=== PATIENT | male | born 1935 | race Caucasian/White ===

== ENCOUNTER 2017-10-04 15:12 | Emergency (ER) | payer MEDICARE, OTHER ==
[~2017-10-04 15:12] MED LIST: ACYCLOVIR200 MG PO; AMLODIPINE BESY10 MG PO; ATIVAN0.5 MG PO; BENZONATATE100 MG PO; DOCUSATE SODIU100 MG PO; DOXAZOSIN MESYLA1 MG PO; FLUTICASONE PRO16 GM; GLIPIZIDE5 MG PO; LIDODERM700 MG TD; MECLIZINE HCL12.5 MG PO; MEROPENEM500 MG IV; METOPROLOL TART50 MG PO; TAMSULOSIN HCL0.4 MG PO; TRAZODONE HCL50 MG PO; TYLENOL # 31 EA PO; ULTRAM50 MG PO
== END 2017-10-04 17:24 | disposition left against medical advice (07) ==
LOC: FSED 15:12
DX: M25.551 Pain in right hip (principal)

== ENCOUNTER 2018-12-13 03:54 | Observation (INO) | payer OTHER ==
[~2018-12-13] VITALS: Ht 170.2 cm; Wt 94.1 kg
--- OUTSIDE RECORDS SUMMARY | 2018-12-13 03:57 | XMS REPORT | Clinical Summary ---
Author Author [facility] Address Unknown Phone Unavailable Care Team Providers Care Gift Packer Name Role Phone Eladio Saini DO PCP Allergies Comments Active Allergy Reactions Severity Noted Date Jittery Ciprofloxacin Other (See 12/30/2017 Comments) Medications End Date Status Medication Sig Dispensed Refills Start Date Active acetaminophen-codeine 0 (TYLENOL WITH CODEINE #3) 8 300-30 mg per tablet Active acyclovir (ZOVIRAX) 200 0 MG capsule 8 Active amLODIPine (NORVASC) 10 0 mg tablet 8 Active citalopram (CeleXA) 20 MG 0 tablet 8 Active finasteride (PROSCAR) 5 0 mg tablet 8 Active hydroCHLOROthiazide 0 (HYDRODIURIL) 25 MG 8 tablet Active lisinopril 0 (PRINIVIL,ZESTRIL) 40 mg 8 tablet Active pantoprazole (PROTONIX) 0 40 MG EC tablet 8 Active tamsulosin (FLOMAX) 0.4 0 mg capsule,extended 8 release 24hr Active Problems Problem Noted Date Bilateral impacted cerumen 12/30/2017 Sensorineural hearing loss (SNHL) of both ears 12/30/2017 Encounters Care Team Description Date Type Specialty Roddy Gold MD Bilateral impacted cerumen (Primary Dx); Sensorineural hearing loss (SNHL) of both ears 12/30/2017 Office Visit Otolaryngology after 12/12/2017 Family History Medical History Relation Name Comments Cancer Brother Heart disease Father Relation Name Status Comments Brother Father Social History Date Tobacco Use Types Packs/Day Years Used Never Smoker Smokeless Tobacco: Never Used Alcohol Use Drinks/Week oz/Week Comments No Sex Assigned at Date Recorded Not on file Industry Job Start Date Occupation Not on file Not on file Not on file Travel End Travel History Travel Start No recent travel history available. Last Filed Vital Signs Time Taken Vital Sign Reading - Blood Pressure - - Pulse - - Temperature - - Respiratory Rate - - Oxygen Saturation - - Inhaled Oxygen - Concentration 12/30/2017 9:43 AM CDT Weight 99.2 kg (218 lb 9.6 oz) 12/30/2017 9:43 AM CDT Height 170.2 cm (5' 7") 12/30/2017 9:43 AM CDT Body Mass Index 34.24 Plan of Treatment Health Maintenance Due Date Last Done Comments SHINGLES VACCINES (#1) 1985 65+ PNEUMOCOCCAL VACCINE 2000 (1 of 2 - PCV13) PNEUMOCOCCAL 2000 POLYSACCHARIDE VACCINE AGE 65 AND OVER INFLUENZA VACCINE 04/12/2018 Procedures Comments Procedure Name Priority Date/Time Associated Diagnosis COMPREHENSIVE HEARING Routine 12/30/2017 Bilateral impacted TEST 10:32 AM CDT cerumen Sensorineural hearing loss (SNHL) of both ears after 12/12/2017 Results * Comprehensive hearing test (12/30/2017 10:32 AM CDT) Narrative Performed At after 12/12/2017 Insurance Payer Benefit Subscriber ID Type Phone Address Plan / Group [employer] xxxxxxxxx O [facility] Advance Directives Patient has advance care planning documents on file. For more information, kendra priest contact: Sam Cordova [address] [place] [place] [address]
--- OUTSIDE RECORDS SUMMARY | 2018-12-13 03:58 | XMS REPORT | Summary of Care ---
Author Author [facility] Organization [facility] Address Unknown Phone Unavailable Encounter HQ Fabiola(MARISABEL) [id number] Date(s): 11/19/16 - 11/22/16 [facility] [address] [place] [address]- Final: Secondary hypertension, unspecified Discharge Disposition: Home or Self Care Attending Physician: Casa Hill DO Admitting Physician: Casa Hill DO Vital Signs 1 2 3 Most recent to oldest [Reference Range]: 167.64 cm (11/19/16 12:54 PM) Height 98.7 DegF (11/22/16 11:32 AM) 98.8 DegF (11/22/16 7:15 AM) 98.3 DegF (11/22/16 4:00 AM) Temperature Oral [96.4-99.1 DegF] 161/95 mmHg *HI* (11/22/16 11:32 AM) 149/75 mmHg *HI* (11/22/16 7:15 AM) 168/97 mmHg *HI* (11/22/16 4:00 AM) Blood Pressure [90-140/60-90 mmHg] 16 BRMIN (11/22/16 11:32 AM) 17 BRMIN (11/22/16 7:15 AM) 18 BRMIN (11/22/16 4:00 AM) Respiratory Rate [14-20 BRMIN] 87 bpm (11/22/16 11:32 AM) 92 bpm (11/22/16 7:15 AM) 90 bpm (11/22/16 4:00 AM) Peripheral Pulse Rate [60-100 bpm] 217 kg (11/19/16 12:54 PM) Weight 77.22 m2 (11/19/16 12:54 PM) Body Mass Index Problem List Condition Effective Dates Status Health Status Informant DM (diabetes Resolved mellitus)(Confirmed) HTN Resolved (hypertension)(Confi rmed) Arthritis(Confirmed) Resolved Vertigo(Confirmed) Resolved Allergies, Adverse Reactions, Alerts Substance Reaction Severity Status ciprofloxacin Active Medications acetaminophen 650 mg, 2 tab, Route: PO, Drug form: TAB, Q4H, Dosing Weight 217, kg, PRN Pain 1 -3/Temp > 100.4 F, Start date: 11/19/16 13:15:00 PROCUREMENT COST COORDINATOR, Duration: 30 day, Stop date: 12/19/16 13:14:00 CDT Notes: Do not exceed 4 gm/day. (Same as: Tylenol) Start Date: 11/19/16 Stop Date: 11/22/16 Status: Discontinued acetaminophen-hydrocodone 325 mg-5 mg oral tablet 1 tab, Route: PO, Drug Form: TAB, Dosing Weight 217, kg, Q4H, PRN Pain Score 7-1 0, Start date: 11/19/16 14:40:00 PROCUREMENT COST COORDINATOR, Duration: 30 day, Stop date: 12/19/16 14:3 9:00 CDT Notes: (Same as: Earp 325/5) Do not exceed 4gm/day of acetaminophen. Start Date: 11/19/16 Stop Date: 11/22/16 Status: Discontinued acetaminophen-hydrocodone 325 mg-5 mg oral tablet 1 tab, Route: PO, Drug Form: TAB, Dosing Weight 217, kg, Q4H, PRN Pain Score 4-6 , Start date: 11/19/16 13:15:00 PROCUREMENT COST COORDINATOR, Duration: 30 day, Stop date: 12/19/16 13:14 :00 CDT Notes: (Same as: Earp 325/5) Do not exceed 4gm/day of acetaminophen. Start Date: 11/19/16 Stop Date: 11/19/16 Status: Discontinued amLODIPine 10 mg, 2 tab, Route: PO, Drug form: TAB, Daily, Dosing Weight 217, kg, Start manuel e: 11/20/16 9:00:00 PROCUREMENT COST COORDINATOR, Duration: 30 day, Stop date: 12/19/16 9:00:00 CDT Notes: (Same as: Norvasc) Start Date: 11/20/16 Stop Date: 11/22/16 Status: Discontinued Augmentin 875 mg oral tablet 1 tab, PO, Q12H, X 10 day, # 20 tab, 0 Refill(s) Start Date: 11/22/16 Stop Date: 12/02/16 Status: Ordered Augmentin 875 mg oral tablet 1 tab, Route: PO, Drug Form: TAB, Dosing Weight 217, kg, Q12H, Start date: 11/22 9:00:00 CDT, Duration: 10 day, Stop date: 12/01/16 21:00:00 CDT Notes: With food.(Same as: Augmentin 875) Start Date: 11/22/16 Stop Date: 11/22/16 Status: Discontinued benzonatate 100 mg, 1 cap, Route: PO, Drug form: CAP, TID, Dosing Weight 217, kg, PRN Cough/ Congestion, Start date: 11/19/16 13:34:00 PROCUREMENT COST COORDINATOR, Duration: 30 day, Stop date: 05/29 13:33:00 CDT Notes: (Same As: Racquel Bui)"Do Not Crush" Start Date: 11/19/16 Stop Date: 11/22/16 Status: Discontinued benzonatate 100 mg, Route: PO, Drug form: CAP, TID, Dosing Weight 217, kg, Start date: 11/19 17:00:00 PROCUREMENT COST COORDINATOR, Duration: 30 day, Stop date: 12/19/16 13:00:00 CDT Start Date: 11/19/16 Stop Date: 11/19/16 Status: Canceled calcium gluconate + sodium chloride 0.9% INJ 70 mL 3 gm, 30 mL, Route: IVPB, PRN, Dosing Weight 217, kg, PRN Abnormal Lab Result, F or NON-ICU Patients Only., Start date: 11/19/16 13:13:00 PROCUREMENT COST COORDINATOR, Duration: 30 day, Stop date: 12/19/16 14:12:00 CDT Notes: WASTE: F/P - Sink; E - Municipal Trash Bin Start Date: 11/19/16 Stop Date: 11/20/16 Status: Discontinued calcium gluconate + sodium chloride 0.9% INJ 80 mL 2 gm, 20 mL, Route: IVPB, PRN, Dosing Weight 217, kg, PRN Abnormal Lab Result, F or NON-ICU Patients Only., Start date: 11/19/16 13:13:00 PROCUREMENT COST COORDINATOR, Duration: 30 day, Stop date: 12/19/16 14:12:00 CDT Notes: WASTE: F/P - Sink; E - Municipal Trash Bin Start Date: 11/19/16 Stop Date: 11/20/16 Status: Discontinued carvedilol 12.5 mg oral tablet 12.5 mg=1 tab, PO, Q12H, # 60 tab, 0 Refill(s) Start Date: 11/22/16 Stop Date: 12/22/16 Status: Ordered Cepacol Sore Throat Russo Sugar Free 15 mg-3.6 mg mucous membrane lozenge 1 lozenge, Route: MUCOUS MEM, Drug Form: CHUCHO, Dosing Weight 217, kg, Q4H, PRN So re Throat, Start date: 11/20/16 20:42:00 PROCUREMENT COST COORDINATOR, Duration: 30 day, Stop date: 12/20 20:41:00 CDT Notes: Same as: Cepacol Start Date: 11/20/16 Stop Date: 11/22/16 Status: Discontinued Coreg 12.5 mg, 1 tab, Route: PO, Drug form: TAB, Q12H, Dosing Weight 217, kg, Start da te: 11/19/16 21:00:00 PROCUREMENT COST COORDINATOR, Duration: 30 day, Stop date: 12/19/16 9:00:00 CDT Notes: Give with food. (Same As: Coreg) Start Date: 11/19/16 Stop Date: 11/22/16 Status: Discontinued Dextrose 50% Syringe 12.5 gm, 25 mL, Route: IVP, Drug Form: INJ, Dosing Weight 217, kg, PRN, PRN Bloo d Glucose Results, Start date: 11/19/16 13:33:00 PROCUREMENT COST COORDINATOR, Duration: 30 day, Stop manuel e: 12/19/16 14:32:00 CDT Start Date: 11/19/16 Stop Date: 11/22/16 Status: Discontinued Dextrose 50% Syringe 25 gm, 50 mL, Route: IVP, Drug Form: INJ, Dosing Weight 217, kg, PRN, PRN Blood Glucose Results, Start date: 11/19/16 13:33:00 PROCUREMENT COST COORDINATOR, Duration: 30 day, Stop date: 12/19/16 14:32:00 CDT Start Date: 11/19/16 Stop Date: 11/22/16 Status: Discontinued docusate sodium 100 mg oral capsule 100 mg, 1 cap, Route: PO, Drug form: CAP, BID, Dosing Weight 217, kg, PRN Consti patifelipe, Start date: 11/19/16 13:18:00 PROCUREMENT COST COORDINATOR, Duration: 30 day, Stop date: 12/19/16 13:17:00 CDT Notes: (Same as: Colace) (Do Not Crush) Start Date: 11/19/16 Stop Date: 11/22/16 Status: Discontinued doxazosin 1 mg, 1 tab, Route: PO, Drug form: TAB, Daily, Dosing Weight 217, kg, Start date : 11/19/16 17:00:00 PROCUREMENT COST COORDINATOR, Duration: 30 day, Stop date: 12/18/16 17:00:00 CDT Notes: (Same as: Cardura) Start Date: 11/19/16 Stop Date: 11/22/16 Status: Discontinued Flonase 0.05 mg/inh nasal spray 2 spray, Route: Each Affected Nostril, Drug Form: SPRY, Dosing Weight 217, kg, B ID, PRN Congestion, Start date: 11/19/16 19:36:00 PROCUREMENT COST COORDINATOR, Duration: 30 day, Stop da te: 12/19/16 19:35:00 CDT Notes: (Same as: Flonase) Start Date: 11/19/16 Stop Date: 11/22/16 Status: Discontinued Flonase 0.05 mg/inh nasal spray 2 spray, Route: Each Affected Nostril, Drug Form: SPRY, Dosing Weight 217, kg, D aily, PRN Congestion, Start date: 11/19/16 13:23:00 PROCUREMENT COST COORDINATOR, Duration: 30 day, Stop date: 12/19/16 13:22:00 CDT Notes: (Same as: Flonase) Start Date: 11/19/16 Stop Date: 11/19/16 Status: Discontinued glipiZIDE 2.5 mg, 0.5 tab, Route: PO, Drug form: TAB, Before Breakfast, Dosing Weight 217, kg, Start date: 11/21/16 7:30:00 CDT, Duration: 30 day, Stop date: 12/20/16 7:3 0:00 CDT Notes: (Same as: Glucotrol) 30 min before meals. Start Date: 11/21/16 Stop Date: 11/22/16 Status: Discontinued glucagon 1 mg, Route: IM, Drug form: PDR/INJ, PRN, Dosing Weight 217, kg, PRN Blood Gluco se Results, Start date: 11/19/16 13:33:00 PROCUREMENT COST COORDINATOR, Duration: 30 day, Stop date: 05/29 14:32:00 CDT Start Date: 11/19/16 Stop Date: 11/22/16 Status: Discontinued hydrALAZINE 10 mg, 0.5 mL, Route: IVP, Drug form: INJ, Q6H, Dosing Weight 217, kg, PRN Hyper tension, Start date: 11/19/16 13:33:00 PROCUREMENT COST COORDINATOR, Duration: 30 day, Stop date: 13:32:00 CDT Notes: (Same as: Apresoline)Push over 5 minutes Start Date: 11/19/16 Stop Date: 11/22/16 Status: Discontinued insulin aspart 5 unit, 0.05 mL, Route: SUB-Q, Drug form: SOLN, TID-Before Meals, Dosing Weight 217, kg, PRN Blood Glucose Results, Start date: 11/19/16 13:33:00 PROCUREMENT COST COORDINATOR, Duration: 30 day, Stop date: 12/19/16 13:32:00 CDT Notes: Roll in palms of hands gently; Do not shake vigorously. (Same as: Ginny Max)"single patient use only"WASTE: F/P - Black; E - Municipal Trash Bin Stable f or 28 days at room temperature.Expires in days from Date Start Date: 11/19/16 Stop Date: 11/22/16 Status: Discontinued insulin aspart 4 unit, 0.04 mL, Route: SUB-Q, Drug form: SOLN, TID-Before Meals, Dosing Weight 217, kg, PRN Blood Glucose Results, Start date: 11/19/16 13:33:00 PROCUREMENT COST COORDINATOR, Duration: 30 day, Stop date: 12/19/16 13:32:00 CDT Notes: Roll in palms of hands gently; Do not shake vigorously. (Same as: Ginny Max)"single patient use only"WASTE: F/P - Black; E - Municipal Trash Bin Stable f or 28 days at room temperature.Expires in days from Date Start Date: 11/19/16 Stop Date: 11/22/16 Status: Discontinued insulin aspart 1 unit, 0.01 mL, Route: SUB-Q, Drug form: SOLN, TID-Before Meals, Dosing Weight 217, kg, PRN Blood Glucose Results, Start date: 11/19/16 13:33:00 PROCUREMENT COST COORDINATOR, Duration: 30 day, Stop date: 12/19/16 13:32:00 CDT Notes: Roll in palms of hands gently; Do not shake vigorously. (Same as: Ginny Max)"single patient use only"WASTE: F/P - Black; E - Municipal Trash Bin Stable f or 28 days at room temperature.Expires in days from Date Start Date: 11/19/16 Stop Date: 11/22/16 Status: Discontinued insulin aspart 3 unit, 0.03 mL, Route: SUB-Q, Drug form: SOLN, TID-Before Meals, Dosing Weight 217, kg, PRN Blood Glucose Results, Start date: 11/19/16 13:33:00 PROCUREMENT COST COORDINATOR, Duration: 30 day, Stop date: 12/19/16 13:32:00 CDT Notes: Roll in palms of hands gently; Do not shake vigorously. (Same as: Ginny Max)"single patient use only"WASTE: F/P - Black; E - Municipal Trash Bin Stable f or 28 days at room temperature.Expires in days from Date Start Date: 11/19/16 Stop Date: 11/22/16 Status: Discontinued insulin aspart 2 unit, 0.02 mL, Route: SUB-Q, Drug form: SOLN, TID-Before Meals, Dosing Weight 217, kg, PRN Blood Glucose Results, Start date: 11/19/16 13:33:00 PROCUREMENT COST COORDINATOR, Duration: 30 day, Stop date: 12/19/16 13:32:00 CDT Notes: Roll in palms of hands gently; Do not shake vigorously. (Same as: Ginny Max)"single patient use only"WASTE: F/P - Black; E - Municipal Trash Bin Stable f or 28 days at room temperature.Expires in days from Date Start Date: 11/19/16 Stop Date: 11/22/16 Status: Discontinued magnesium oxide 800 mg, 2 tab, Route: PO, Drug form: TAB, PRN, Dosing Weight 217, kg, PRN Abnorm al Lab Result, For NON-ICU Patients Only., Start date: 11/19/16 13:13:00 PROCUREMENT COST COORDINATOR, Du ration: 30 day, Stop date: 12/19/16 14:12:00 CDT Notes: (Same as: Mag-Ox 400)Magnesium oxide [id number] elemental magnesiumDose= ____mg magnesium oxide (___mg elemental magnesium) Start Date: 11/19/16 Stop Date: 11/20/16 Status: Discontinued magnesium sulfate 2 gm, 50 mL, Route: IVPB, Drug form: INJ, PRN, Dosing Weight 217, kg, PRN Abnorm al Lab Result, For NON-ICU Patients Only., Start date: 11/19/16 13:13:00 PROCUREMENT COST COORDINATOR, Du ration: 30 day, Stop date: 12/19/16 14:12:00 CDT Notes: WASTE: F/P - Sink; E - Municipal Trash Bin Start Date: 11/19/16 Stop Date: 11/20/16 Status: Discontinued magnesium sulfate 1 gm, 100 mL, Route: IVPB, Drug form: INJ, PRN, Dosing Weight 217, kg, PRN Abnor mal Lab Result, For NON-ICU Patients Only., Start date: 11/19/16 13:13:00 PROCUREMENT COST COORDINATOR, D uration: 30 day, Stop date: 12/19/16 14:12:00 CDT Notes: WASTE: F/P - Sink; E - Municipal Trash Bin Start Date: 11/19/16 Stop Date: 11/20/16 Status: Discontinued metFORMIN 1000 mg oral tablet 1,000 mg=1 tab, PO, BID, # 60 tab, 0 Refill(s) Start Date: 11/22/16 Stop Date: 12/22/16 Status: Ordered metFORMIN 1000 mg oral tablet 1,000 mg, 2 tab, Route: PO, Drug form: TAB, BID, Dosing Weight 217, kg, Start da te: 11/21/16 9:00:00 CDT, Duration: 30 day, Stop date: 12/20/16 17:00:00 CDT Notes: (Same as: Glucophage) Take with meal Start Date: 11/21/16 Stop Date: 11/22/16 Status: Discontinued metoprolol tartrate 50 mg, 1 tab, Route: PO, Drug form: TAB, Q12H, Dosing Weight 217, kg, Start date : 11/19/16 21:00:00 PROCUREMENT COST COORDINATOR, Duration: 30 day, Stop date: 12/19/16 9:00:00 CDT Notes: (Same as: Lopressor) Start Date: 11/19/16 Stop Date: 11/19/16 Status: Canceled ondansetron 4 mg, 2 mL, Route: IVP, Drug form: INJ, Q6H, Dosing Weight 217, kg, PRN Nausea & Vomiting, Start date: 11/19/16 13:15:00 PROCUREMENT COST COORDINATOR, Duration: 30 day, Stop date: 12/19 13:14:00 CDT Notes: (Same as: Gale) MEDICATION WASTE Product Size: 4 mgProduct Was ainsley: ___ mg Start Date: 11/19/16 Stop Date: 11/22/16 Status: Discontinued potassium chloride 20 mEq, 15 mL, Route: NJ, Drug form: LIQ, PRN, Dosing Weight 217, kg, PRN Abnorm al Lab Result, For NON-ICU Patients Only, Start date: 11/19/16 13:13:00 PROCUREMENT COST COORDINATOR, Dur ation: 30 day, Stop date: 12/19/16 14:12:00 CDT Notes: (Same as: Potassium Chloride) Start Date: 11/19/16 Stop Date: 11/20/16 Status: Discontinued potassium chloride 10 mEq, 100 mL, Route: IVPB, Drug form: INJ, PRN, Dosing Weight 217, kg, PRN Abn ormal Lab Result, For NON-ICU Patients Only, Start date: 11/19/16 13:13:00 PROCUREMENT COST COORDINATOR, Duration: 30 day, Stop date: 12/19/16 14:12:00 CDT Notes: Infuse at a rate of 10 mEq/hr.(Same as: KCL) Start Date: 11/19/16 Stop Date: 11/20/16 Status: Discontinued potassium chloride 20 mEq, 1 tab, Route: PO, Drug form: ERTAB, PRN, Dosing Weight 217, kg, PRN Abno rmal Lab Result, For NON-ICU Patients Only, Start date: 11/19/16 13:13:00 PROCUREMENT COST COORDINATOR, D uration: 30 day, Stop date: 12/19/16 14:12:00 CDT Notes: (Same as: K-Dur 20)"Do Not Crush" With food and full glass of water Start Date: 11/19/16 Stop Date: 11/20/16 Status: Discontinued potassium phosphate + sodium chloride 0.9% INJ 240 mL 30 mmol, 10 mL, Route: IVPB, PRN, Dosing Weight 217, kg, PRN Abnormal Lab Result , For NON-ICU Patients Only., Start date: 11/19/16 13:13:00 PROCUREMENT COST COORDINATOR, Duration: 30 da y, Stop date: 12/19/16 14:12:00 CDT Notes: (Same as: K Phosphate.) 1 mMol phoshate has 1.47 mEq potassium Infuse o steve 4 hours Start Date: 11/19/16 Stop Date: 11/20/16 Status: Discontinued potassium phosphate + sodium chloride 0.9% INJ 245 mL 15 mmol, 5 mL, Route: IVPB, PRN, Dosing Weight 217, kg, PRN Abnormal Lab Result, For NON-ICU Patients Only., Start date: 11/19/16 13:13:00 PROCUREMENT COST COORDINATOR, Duration: 30 day, Stop date: 12/19/16 14:12:00 CDT Notes: (Same as: K Phosphate.) 1 mMol phoshate has 1.47 mEq potassium Infuse o steve 4 hours Start Date: 11/19/16 Stop Date: 11/20/16 Status: Discontinued potassium phosphate-sodium phosphate 250 mg-280 mg-160 mg oral powder for recons titution 2 pkt, Route: PO, Drug Form: PDR/REC, Dosing Weight 217, kg, PRN, PRN Abnormal L ab Result, For NON-ICU Patients Only, Start date: 11/19/16 13:13:00 PROCUREMENT COST COORDINATOR, Duratio n: 30 day, Stop date: 12/19/16 14:12:00 CDT Notes: (Same as: Phos-NaK) Each 1.5 gm pkt has 250mg phosphorous. Mix w/2.5oz w ater and stir. Start Date: 11/19/16 Stop Date: 11/20/16 Status: Discontinued sodium chloride 0.9% 1000 ml INJ 1,000 mL 1,000 mL, Rate: 100 ml/hr, Infuse over: 10 hr, Route: IV, Dosing Weight 217 kg, Total Volume: 1,000, Start date: 11/19/16 12:58:00 PROCUREMENT COST COORDINATOR, Duration: 30 day, Stop d ate: 12/19/16 12:57:00 CDT Start Date: 11/19/16 Stop Date: 11/22/16 Status: Discontinued sodium phosphate + D5W 240 mL 30 mmol, 10 mL, Route: IVPB, PRN, Dosing Weight 217, kg, PRN Abnormal Lab Result , For NON-ICU Patients Only., Start date: 11/19/16 13:13:00 PROCUREMENT COST COORDINATOR, Duration: 30 da y, Stop date: 12/19/16 14:12:00 CDT Start Date: 11/19/16 Stop Date: 11/20/16 Status: Discontinued sodium phosphate + D5W 245 mL 15 mmol, 5 mL, Route: IVPB, PRN, Dosing Weight 217, kg, PRN Abnormal Lab Result, For NON-ICU Patients Only., Start date: 11/19/16 13:13:00 PROCUREMENT COST COORDINATOR, Duration: 30 day, Stop date: 12/19/16 14:12:00 CDT Start Date: 11/19/16 Stop Date: 11/20/16 Status: Discontinued tamsulosin 0.4 mg, 1 cap, Route: PO, Drug form: CAP, After Dinner, Dosing Weight 217, kg, S tart date: 11/19/16 17:00:00 PROCUREMENT COST COORDINATOR, Duration: 30 day, Stop date: 12/18/16 17:00:00 CDT Notes: (Same As: Flomax) "Do Not Crush" Start Date: 11/19/16 Stop Date: 11/22/16 Status: Discontinued Tylenol with Codeine #3 oral tablet 1 tab, Route: PO, Drug Form: TAB, Dosing Weight 217, kg, Q4H, PRN Pain Score 4-6 , Start date: 11/19/16 14:40:00 PROCUREMENT COST COORDINATOR, Duration: 30 day, Stop date: 12/19/16 14:39 :00 CDT Notes: Do not exceed 4gm/day of acetaminophen. (Same as: Tylenol with Codeine # 3) Start Date: 11/19/16 Stop Date: 11/22/16 Status: Discontinued Tylenol with Codeine #3 oral tablet 1 - 2 tab, PO, Q4H, PRN Pain, X 2 day, # 20 tab, 0 Refill(s) Start Date: 11/22/16 Stop Date: 11/24/16 Status: Completed Results ELECTROLYTES 1 2 3 Most recent to oldest [Reference Range]: 133 mEq/L *LOW* (11/22/16 3:45 AM) 134 mEq/L *LOW* (11/21/16 5:17 AM) 133 mEq/L *LOW* (11/20/16 4:13 PM) Sodium Lvl [135-145 mEq/L] 3.5 mEq/L (11/22/16 3:45 AM) 3.7 mEq/L (11/21/16 5:17 AM) 3.8 mEq/L (11/20/16 4:13 PM) Potassium Lvl [3.5-5.1 mEq/L] 98 mEq/L (11/22/16 3:45 AM) 98 mEq/L (11/21/16 5:17 AM) 96 mEq/L (11/20/16 4:13 PM) Chloride Lvl [95-109 mEq/L] 26 mEq/L (11/22/16 3:45 AM) 27 mEq/L (11/21/16 5:17 AM) 28 mEq/L (11/20/16 4:13 PM) CO2 [24-32 mEq/L] 12.5 mEq/L (11/22/16 3:45 AM) 12.7 mEq/L (11/21/16 5:17 AM) 12.8 mEq/L (11/20/16 4:13 PM) AGAP [10.0-20.0 mEq/L] CHEM PANEL 1 2 3 Most recent to oldest [Reference Range]: 0.99 mg/dL (11/22/16 3:45 AM) 0.94 mg/dL (11/21/16 5:17 AM) 1.20 mg/dL (11/20/16 4:13 PM) Creatinine Lvl [0.50-1.40 mg/dL] 71 mL/min/1.73m2 1 *NA* (11/22/16 3:45 AM) 76 mL/min/1.73m2 2 *NA* (11/21/16 5:17 AM) 56 mL/min/1.73m2 3 *NA* (11/20/16 4:13 PM) eGFR 16 mg/dL (11/22/16 3:45 AM) 13 mg/dL (11/21/16 5:17 AM) 14 mg/dL (11/20/16 4:13 PM) BUN [7-22 mg/dL] 12 (11/19/16 1:11 PM) B/C Ratio [6-25] 120 mg/dL *HI* (11/22/16 3:45 AM) 126 mg/dL *HI* (11/21/16 5:17 AM) 198 mg/dL *HI* (11/20/16 4:13 PM) Glucose Lvl [70-99 mg/dL] 7.2 g/dL (11/19/16 1:11 PM) Total Protein [6.4-8.4 g/dL] 3.7 g/dL (11/19/16 1:11 PM) Albumin Lvl [3.5-5.0 g/dL] 3.5 g/dL (11/19/16 1:11 PM) Globulin [2.7-4.2 g/dL] 1.1 (11/19/16 1:11 PM) A/G Ratio [0.7-1.6] 8.7 mg/dL (11/22/16 3:45 AM) 8.5 mg/dL (11/21/16 5:17 AM) 8.9 mg/dL (11/20/16 4:13 PM) Calcium Lvl [8.5-10.5 mg/dL] 2.4 mg/dL *LOW* (11/20/16 5:10 AM) 2.6 mg/dL (11/19/16 10:26 PM) 2.9 mg/dL (11/19/16 5:16 PM) Phosphorus [2.5-4.5 mg/dL] 2.1 mg/dL (11/19/16 10:26 PM) 2.2 mg/dL (11/19/16 5:16 PM) 2.0 mg/dL (11/19/16 1:11 PM) Magnesium Lvl [1.8-2.4 mg/dL] 25 unit/L (11/19/16 1:11 PM) ALT [0-65 unit/L] 33 unit/L (11/19/16 1:11 PM) AST [0-37 unit/L] 114 unit/L (11/19/16 1:11 PM) Alk Phos [39-136 unit/L] 0.7 mg/dL (11/19/16 1:11 PM) Bili Total [0.2-1.3 mg/dL] 1Result Comment: The eGFR is calculated using the CKD-EPI formula. In most young, healthy individuals the eGFR will be >90 mL/min/1.73m2. The eGFR declines with age. An eGFR of 60-89 may be normal in some populations, particularly the elderly, for whom the CKD-EPI formula has not been extensively validated. Use of the eGFR is not recommended in the following populations: Individuals with unstable creatinine concentrations, including patients and those with serious co-morbid conditions. Patients with extremes in muscle mass or diet. The data above are obtained from the National Kid[employer] Disease Education Program ( [employer]) which additionally recommends that when the eGFR is used in patients with extremes of body mass index for purposes of drug dosing, the eGFR should be mul tiplied by the estimated BMI. 2Result Comment: The eGFR is calculated using the CKD-EPI formula. In most young, healthy individuals the eGFR will be >90 mL/min/1.73m2. The eGFR declines with age. An eGFR of 60-89 may be normal in some populations, particularly the elderly, for whom the CKD-EPI formula has not been extensively validated. Use of the eGFR is not recommended in the following populations: Individuals with unstable creatinine concentrations, including patients and those with serious co-morbid conditions. Patients with extremes in muscle mass or diet. The data above are obtained from the National Kid[employer] Disease Education Program ( [employer]) which additionally recommends that when the eGFR is used in patients with extremes of body mass index for purposes of drug dosing, the eGFR should be mul tiplied by the estimated BMI. 3Result Comment: The eGFR is calculated using the CKD-EPI formula. In most young, healthy individuals the eGFR will be >90 mL/min/1.73m2. The eGFR declines with age. An eGFR of 60-89 may be normal in some populations, particularly the elderly, for whom the CKD-EPI formula has not been extensively validated. Use of the eGFR is not recommended in the following populations: Individuals with unstable creatinine concentrations, including patients and those with serious co-morbid conditions. Patients with extremes in muscle mass or diet. The data above are obtained from the National Kidney Disease Education Program ( [employer]) which additionally recommends that when the eGFR is used in patients with extremes of body mass index for purposes of drug dosing, the eGFR should be mul tiplied by the estimated BMI. CARDIAC ENZYMES 1 2 3 Most recent to oldest [Reference Range]: 418 unit/L *HI* (11/19/16 5:16 PM) 405 unit/L *HI* (11/19/16 1:11 PM) 402 unit/L *HI* (11/19/16 1:11 PM) Total CK [12-191 unit/L] 3.3 ng/mL (11/19/16 5:16 PM) 4.0 ng/mL *HI* (11/19/16 1:11 PM) CK MB [0.5-3.6 ng/mL] 0.8 (11/19/16 5:16 PM) 1.0 (11/19/16 1:11 PM) CK MB Index [0.0-2.5] <0.02 ng/mL (11/19/16 5:16 PM) <0.02 ng/mL (11/19/16 1:11 PM) Troponin-I [0.00-0.40 ng/mL] URINE AND STOOL 1 2 3 Most recent to oldest [Reference Range]: Clear (11/19/16 1:27 PM) UA Turbidity [Clear] Ltyellow *NA* (11/19/16 1:27 PM) UA Color 6.0 (11/19/16 1:27 PM) UA pH [5.0-8.0] 1.011 (11/19/16 1:27 PM) UA Spec Grav [<=1.030] Negative mg/dL *NA* (11/19/16 1:27 PM) UA Glucose [Negative mg/dL] Negative (11/19/16 1:27 PM) UA Blood [Negative] Negative mg/dL *NA* (11/19/16 1:27 PM) UA Ketones [Negative mg/dL] Negative mg/dL (11/19/16 1:27 PM) UA Protein [Negative mg/dL] <=1.0 mg/dL *NA* (11/19/16 1:27 PM) UA Urobilinogen [0.1-1.0 mg/dL] Negative *NA* (11/19/16 1:27 PM) UA Bili [Negative] Negative (11/19/16 1:27 PM) UA Leuk Est [Negative] Negative (11/19/16 1:27 PM) UA Nitrite [Negative] 1 /HPF (11/19/16 1:27 PM) UA WBC [0-5 /HPF] <1 /HPF (11/19/16 1:27 PM) UA RBC [0-2 /HPF] None Seen *NA* (11/19/16 1:27 PM) UA Sq Epi HEMATOLOGY 1 2 3 Most recent to oldest [Reference Range]: 5.5 K/CMM (11/22/16 3:45 AM) 3.5 K/CMM *LOW* (11/21/16 5:17 AM) 4.8 K/CMM (11/19/16 1:20 PM) WBC [3.7-10.4 K/CMM] 4.41 M/CMM *LOW* (11/22/16 3:45 AM) 4.55 M/CMM *LOW* (11/21/16 5:17 AM) 4.66 M/CMM *LOW* (11/19/16 1:20 PM) RBC [4.70-6.10 M/CMM] 12.3 g/dL *LOW* (11/22/16 3:45 AM) 12.8 g/dL *LOW* (11/21/16 5:17 AM) 13.1 g/dL *LOW* (11/19/16 1:20 PM) Hgb [14.0-18.0 g/dL] 35.9 % *LOW* (11/22/16 3:45 AM) 37.4 % *LOW* (11/21/16 5:17 AM) 37.8 % *LOW* (11/19/16 1:20 PM) Hct [42.0-54.0 %] 81.3 fL (11/22/16 3:45 AM) 82.2 fL (11/21/16:17 AM) 81.1 fL (11/19/16 1:20 PM) MCV [80.0-94.0 fL] 28.0 pg (11/22/16 3:45 AM) 28.1 pg (11/21/16:17 AM) 28.1 pg (11/19/16 1:20 PM) MCH [27.0-31.0 pg] 34.4 g/dL (11/22/16 3:45 AM) 34.1 g/dL (11/21/16:17 AM) 34.6 g/dL (11/19/16 1:20 PM) MCHC [32.0-36.0 g/dL] 15.2 % *HI* (11/22/16 3:45 AM) 15.5 % *HI* (11/21/16:17 AM) 15.1 % *HI* (11/19/16 1:20 PM) RDW [11.5-14.5 %] 215 K/CMM (11/22/16 3:45 AM) 205 K/CMM (11/21/16:17 AM) 201 K/CMM (11/19/16 1:20 PM) Platelet [133-450 K/CMM] 8.4 fL (11/22/16 3:45 AM) 8.7 fL (11/21/16:17 AM) 8.8 fL (11/19/16 1:20 PM) MPV [7.4-10.4 fL] 59.2 % (11/22/16 3:45 AM) 56.4 % (11/21/16 5:17 AM) 70.1 % (11/19/16 1:20 PM) Segs [45.0-75.0 %] 32.0 % (11/22/16 3:45 AM) 32.7 % (11/21/16 5:17 AM) 23.7 % (11/19/16 1:20 PM) Lymphocytes [20.0-40.0 %] 8.1 % (11/22/16 3:45 AM) 9.8 % (11/21/16 5:17 AM) 5.3 % (11/19/16 1:20 PM) Monocytes [2.0-12.0 %] 0.3 % (11/22/16 3:45 AM) 0.2 % (11/21/16 5:17 AM) 0.1 % (11/19/16 1:20 PM) Eosinophils [0.0-4.0 %] 0.4 % (11/22/16 3:45 AM) 0.9 % (11/21/16 5:17 AM) 0.8 % (11/19/16 1:20 PM) Basophils [0.0-1.0 %] 3.2 K/CMM (11/22/16 3:45 AM) 2.0 K/CMM (11/21/16 5:17 AM) 3.4 K/CMM (11/19/16 1:20 PM) Segs-Bands # [1.5-8.1 K/CMM] 1.8 K/CMM (11/22/16 3:45 AM) 1.1 K/CMM (11/21/16 5:17 AM) 1.1 K/CMM (11/19/16 1:20 PM) Lymphocytes # [1.0-5.5 K/CMM] 0.4 K/CMM (11/22/16 3:45 AM) 0.3 K/CMM (11/21/16 5:17 AM) 0.3 K/CMM (11/19/16 1:20 PM) Monocytes # [0.0-0.8 K/CMM] Normal (11/22/16 3:45 AM) Normal (11/19/16 1:20 PM) RBC Morph Normal (11/22/16 3:45 AM) Normal (11/19/16 1:20 PM) Plt Morph 13.8 seconds (11/19/16 1:11 PM) PT [12.0-14.7 seconds] 1.04 (11/19/16 1:11 PM) INR [0.85-1.17] 32.0 seconds (11/19/16 1:11 PM) PTT [22.9-35.8 seconds] Immunizations No data available for this section Procedures Procedure Date Related Diagnosis Body Site Carpal tunnel release Cholecystectomy Rotator cuff repair Social History Social History Type Response Alcohol Never Smoking Status Never smoker; Ready to change: No; Concerns about tobacco use in household: No; Exposure to Tobacco Smoke None; Cigarette Smoking Last 365 Days No; Reg Smoking Cessation Counseling No Assessment and Plan Extracted from: Title: Progress Note Author: Casa Hill DO Date: 11/21/16 Assessment/Plan 1.Shortness of breath on room air and stable. no need for oxygen. 2.Hyponatremia improved 3.Hypokalemia resolved 4.Swelling no gross swelling noted in legs 5.Right bundle branch block stable, sinus 6.Diabetes BS controlled, no indication for change 7.HTN (hypertension) elevated on norvasc and coreg. 8.BPH (benign prostatic hyperplasia) contflomax. Orders: glipiZIDE, 2.5 mg, 0.5 tab, Route: PO, Drug form: TAB, Before Breakfast, Dosing Weight 217, kg, Start date: 11/21/16 7:30:00 CDT, Duration: 30 day, Stop date: 12/20/16 7:30:00 CDT metFORMIN 1000 mg oral tablet, 1,000 mg, 2 tab, Route: PO, Drug form: TAB, BID, Dosing Weight 217, kg, Start date: 11/21/16 9:00:00 CDT, Duration: 30 day, Stop date: 12/20/16 17:00:00 CDT BMP CBC w/ Diff and Platelet Physical Therapy Treatments Prophylaxis amb Disposition pending echo read
--- OUTSIDE RECORDS SUMMARY | 2018-12-13 03:58 | XMS REPORT | Summary of Care ---
Author Author [facility] Organization [facility] Address Unknown Phone Unavailable Encounter MARY Hicks(MARISABEL) [id number] Date(s): 02/02/16 - 02/12/[address] [facility] [id number] [place] [address]- Discharge Disposition: Home Attending Physician: Lulú Logan MD Admitting Physician: Lulú Logan MD Vital Signs 1 2 3 Most recent to oldest [Reference Range]: 170.18 cm (02/02/16 11:01 AM) Height 91.847 kg (02/09/16 5:41 AM) 92.009 kg (02/08/16 4:56 AM) 93.7 kg (02/07/16 4:30 AM) Current Weight 98.3 DegF (02/12/16 12:00 PM) 97.8 DegF (02/12/16 7:00 AM) 98.4 DegF (02/12/16 12:00 AM) Temperature Oral [96.4-99.1 DegF] 138/83 mmHg (02/12/16 12:00 PM) 147/85 mmHg *HI* (02/12/16 7:00 AM) 119/73 mmHg (02/12/16 12:00 AM) Blood Pressure [90-140/60-90 mmHg] 18 BRMIN (02/12/16 12:00 PM) 18 BRMIN (02/12/16 7:00 AM) 18 BRMIN (02/12/16 12:00 AM) Respiratory Rate [14-20 BRMIN] 73 bpm (02/12/16 12:00 PM) 72 bpm (02/12/16 7:00 AM) 83 bpm (02/12/16 12:00 AM) Peripheral Pulse Rate [60-100 bpm] 95 kg (02/02/16 11:01 AM) Weight 32.8 m2 (02/02/16 11:01 AM) Body Mass Index Problem List Condition Effective Dates Status Health Status Informant DM (diabetes Resolved mellitus)(Confirmed) HTN Resolved (hypertension)(Confi rmed) Allergies, Adverse Reactions, Alerts Substance Reaction Severity Status ciprofloxacin Active Medications acetaminophen 650 mg, 2 tab, Route: PO, Drug form: TAB, Q4H, Dosing Weight 95, kg, PRN Pain 1- 3/Temp > 100.4 F, Start date: 02/02/16 16:28:00 CDT, Duration: 30 day, Stop date: 03/03/16 16:27:00 CDT Notes: Do not exceed 4 gm/day. (Same as: Tylenol) Start Date: 02/02/16 Stop Date: 02/12/16 Status: Discontinued acyclovir 200 mg oral capsule 200 mg=1 cap, PO, Daily, PRN infection, 0 Refill(s) Start Date: 02/02/16 Status: Ordered amLODIPine 10 mg, PO, Daily, 0 Refill(s) Start Date: 02/02/16 Status: Ordered amLODIPine 10 mg, 2 tab, Route: PO, Drug form: TAB, Daily, Dosing Weight 95, kg, Start date : 02/02/16 17:00:00 CDT, Duration: 30 day, Stop date: 03/03/16 9:00:00 CDT Notes: (Same as: Norvasc) Start Date: 02/02/16 Stop Date: 02/12/16 Status: Discontinued benzonatate 100 mg oral capsule 100 mg=1 cap, PO, TID, 0 Refill(s) Start Date: 02/02/16 Status: Ordered calcium gluconate 2 gm, 100 mL, Route: IVPB, Drug form: INJ, PRN, Dosing Weight 95, kg, PRN Abnorm al Lab Result, For NON-ICU Patients Only., Start date: 02/04/16 18:06:00 CDT, Du ration: 30 day, Stop date: 03/05/16 18:05:00 CDT Notes: WASTE: F/P - Sink; E - Municipal Trash Bin Start Date: 02/04/16 Stop Date: 02/12/16 Status: Discontinued calcium gluconate + Sodium Chloride 0.9% IV 50 mL 3 gm, 30 mL, Route: IVPB, PRN, Dosing Weight 95, kg, PRN Abnormal Lab Result, Fo r NON-ICU Patients Only., Start date: 02/04/16 18:06:00 CDT, Duration: 30 day, S top date: 03/05/16 18:05:00 CDT Notes: WASTE: F/P - Sink; E - Municipal Trash Bin Start Date: 02/04/16 Stop Date: 02/12/16 Status: Discontinued docusate 100 mg, 1 cap, Route: PO, Drug form: CAP, BID, Dosing Weight 95, kg, PRN Constip ation, Start date: 02/02/16 16:28:00 CDT, Duration: 30 day, Stop date: 03/03/16 16:27:00 CDT Notes: (Same as: Colace) (Do Not Crush) Start Date: 02/02/16 Stop Date: 02/12/16 Status: Discontinued docusate sodium 100 mg oral capsule 100 mg=1 cap, PO, BID, PRN Constipation, 0 Refill(s) Start Date: 02/12/16 Status: Ordered doxazosin 1 mg, 0.5 tab, Route: PO, Drug form: TAB, Daily, Dosing Weight 95, kg, Start manuel e: 02/04/16 9:00:00 CDT, Duration: 30 day, Stop date: 03/04/16 9:00:00 CDT Notes: (Same as: Carlo) Start Date: 02/04/16 Stop Date: 02/12/16 Status: Discontinued doxazosin 1 mg oral tablet 1 mg=1 tab, PO, Daily, every evening, 0 Refill(s) Start Date: 02/02/16 Status: Ordered Flomax 0.4 mg, 1 cap, Route: PO, Drug form: CAP, After Dinner, Dosing Weight 95, kg, St art date: 02/08/16 17:00:00 CDT, Duration: 30 day, Stop date: 03/08/16 17:00:00 CDT Notes: (Same As: Flomax) "Do Not Crush" Start Date: 02/08/16 Stop Date: 02/12/16 Status: Discontinued gentamicin + Sodium Chloride 0.9% IV 100 mL 360 mg, 9 mL, Route: IVPB, [id number], Start date: 02/04/16 16:00:00 CDT, Stop date : 03/03/16 8:00:00 CDT Notes: TIME CRITICAL MEDICATION(Same as Garamycin) Start Date: 02/04/16 Stop Date: 02/08/16 Status: Discontinued Gentamicin level scheduled Gentamicin level scheduled, Gent level due, Drug form: MISC, Route: MISC, ONCE, 02/09/16 19:30:00 CDT, Stop date: 02/09/16 19:30:00 CDT Start Date: 02/09/16 Stop Date: 02/08/16 Status: Discontinued Gentamicin level scheduled Gentamicin level scheduled, Gent level due, Drug form: MISC, Route: MISC, ONCE, 02/07/16 19:30:00 CDT, Stop date: 02/07/16 19:30:00 CDT Start Date: 02/07/16 Stop Date: 02/07/16 Status: Completed Gentamicin Pharmacy Dosing 1 ea, Route: MISC, Dosing Weight 95, kg, ONCALL, Start date: 02/04/16 15:00:00 C DT, Duration: 1 doses or times, Pharmacy to dose Start Date: 02/04/16 Stop Date: 02/04/16 Status: Deleted Gentamicin trough due Gentamicin trough due, -, Drug form: MISC, Route: MISC, ONCE, 02/05/16 15:30:00 CDT, Stop date: 02/05/16 15:30:00 CDT Start Date: 02/05/16 Stop Date: 02/05/16 Status: Completed glipiZIDE 5 mg oral tablet 2.5 mg=0.5 tab, PO, Daily, # 15 tab, 0 Refill(s) Start Date: 02/12/16 Stop Date: 03/13/16 Status: Ordered heparin 5,000 unit, 1 mL, Route: SUB-Q, Drug form: INJ, Q12H, Dosing Weight 95, kg, Star t date: 02/02/16 21:00:00 CDT, Duration: 30 day, Stop date: 03/03/16 9:00:00 CDT Notes: porcine heparin Start Date: 02/02/16 Stop Date: 02/12/16 Status: Discontinued hydrochlorothiazide 25 mg, PO, Daily, 0 Refill(s) Start Date: 02/02/16 Stop Date: 02/12/16 Status: Discontinued ibuprofen 200 mg, 0 Refill(s) Start Date: 02/02/16 Stop Date: 02/12/16 Status: Discontinued labetalol 20 mg, 4 mL, Route: IVP, Drug form: INJ, Q12H, Dosing Weight 95, kg, PRN Hyperte nsion, Start date: 02/04/16 14:49:00 CDT, Duration: 30 day, Stop date: 03/05/16 14:48:00 CDT Notes: (Same as: Normodyne, Trandate)Push over 2 minutes Give bolus over 2-3 mi nutes. Start Date: 02/04/16 Stop Date: 02/12/16 Status: Discontinued lidocaine 1% 50 mg, 5 mL, Route: INTRADERM, Drug Form: INJ, Dosing Weight 95, kg, ONCALL, Sta rt date: 02/08/16 14:00:00 CDT, Duration: 30 day, Stop date: 03/09/16 13:59:00 C DT Notes: Preservative free. (Same as: Xylocaine MPF) Start Date: 02/08/16 Stop Date: 02/12/16 Status: Discontinued lisinopril 40 mg oral tablet 40 mg=1 tab, PO, Daily, 0 Refill(s) Start Date: 02/02/16 Stop Date: 02/12/16 Status: Discontinued magnesium oxide 800 mg, 2 tab, Route: PO, Drug form: TAB, PRN, Dosing Weight 95, kg, PRN Abnorma l Lab Result, For NON-ICU Patients Only., Start date: 02/04/16 18:06:00 CDT, Dur ation: 30 day, Stop date: 03/05/16 18:05:00 CDT Notes: (Same as: Mag-Ox 400)Magnesium oxide [id number] elemental magnesiumDose= ____mg magnesium oxide (___mg elemental magnesium) Start Date: 02/04/16 Stop Date: 02/12/16 Status: Discontinued magnesium sulfate 2 gm, 50 mL, Route: IVPB, Drug form: INJ, PRN, Dosing Weight 95, kg, PRN Abnorma l Lab Result, For NON-ICU Patients Only., Start date: 02/04/16 18:06:00 CDT, Dur ation: 30 day, Stop date: 03/05/16 18:05:00 CDT Notes: WASTE: F/P - Sink; E - Municipal Trash Bin Start Date: 02/04/16 Stop Date: 02/12/16 Status: Discontinued magnesium sulfate 1 gm, 100 mL, Route: IVPB, Drug form: INJ, PRN, Dosing Weight 95, kg, PRN Abnorm al Lab Result, For NON-ICU Patients Only., Start date: 02/04/16 18:06:00 CDT, Du ration: 30 day, Stop date: 03/05/16 18:05:00 CDT Notes: WASTE: F/P - Sink; E - Municipal Trash Bin Start Date: 02/04/16 Stop Date: 02/12/16 Status: Discontinued meclizine 25 mg oral tablet 25 mg=1 tab, PO, TID, PRN Nausea, 0 Refill(s) Start Date: 02/02/16 Status: Ordered meropenem + Sodium Chloride 0.9% IV 100 mL 500 mg, Route: IVPB, ABXQ6H, Start date: 02/05/16 1:00:00 CDT, Duration: 30 day, Stop date: 03/05/16 19:00:00 CDT Notes: Same as Merrem MEDICATION WASTE Product Size: 500 mgProduct Wast ed: ___ mg Start Date: 02/05/16 Stop Date: 02/12/16 Status: Discontinued Merrem 1,000 mg, Route: IVPB, Drug form: PDR/INJ, ABXQ6H, Dosing Weight 95, kg, CrCl > 50, Extended infusion, infuse over 3 hours, Start date: 02/05/16 18:00:00 CDT, D uration: 30 day, Stop date: 03/06/16 12:00:00 CDT Start Date: 02/05/16 Stop Date: 02/05/16 Status: Deleted Merrem 500 mg intravenous injection 500 mg, IV, Q6H Start Date: 02/12/16 Stop Date: 03/11/16 Status: Ordered metFORMIN 1,000 mg, PO, TID, 0 Refill(s) Start Date: 02/02/16 Stop Date: 02/12/16 Status: Discontinued metoprolol tartrate 50 mg, 1 tab, Route: PO, Drug form: TAB, Q8H, Dosing Weight 95, kg, Priority: NO W, Start date: 02/06/16 8:25:00 CDT, Stop date: 03/07/16 8:00:00 CDT Notes: (Same as: Lopressor) Start Date: 02/06/16 Stop Date: 02/12/16 Status: Discontinued metoprolol tartrate 25 mg, 1 tab, Route: PO, Drug form: TAB, Q12H, Dosing Weight 95, kg, Start date: 02/04/16 21:00:00 CDT, Duration: 30 day, Stop date: 03/05/16 9:00:00 CDT Notes: (Same as: Lopressor) Start Date: 02/04/16 Stop Date: 02/06/16 Status: Discontinued metoprolol tartrate 50 mg, 1 tab, Route: PO, Drug form: TAB, BID, Dosing Weight 95, kg, Start date: 02/12/16 17:00:00 CDT, Duration: 30 day, Stop date: 03/13/16 9:00:00 CDT Notes: (Same as: Lopressor) Start Date: 02/12/16 Stop Date: 02/12/16 Status: Discontinued metoprolol tartrate 50 mg oral tablet 50 mg=1 tab, PO, BID, 0 Refill(s) Start Date: 02/12/16 Status: Ordered nitrofurantoin 100 mg, PO, BID, # 14 cap, 0 Refill(s) Start Date: 02/02/16 Stop Date: 02/12/16 Status: Discontinued Saulsbury 5/325 oral tablet 1 tab, Route: PO, Drug Form: TAB, Dosing Weight 95, kg, Q6H, PRN Pain Score 1-3, Start date: 02/02/16 17:50:00 CDT, Duration: 30 day, Stop date: 03/03/16 17:49: 00 CDT Notes: (Same as: Saulsbury 325/5) Do not exceed 4gm/day of acetaminophen. Start Date: 02/02/16 Stop Date: 02/12/16 Status: Discontinued [place] 5/325 oral tablet 1 tab, PO, Q6H, PRN Pain Score 1-3, 0 Refill(s) Start Date: 02/12/16 Status: Ordered ondansetron 4 mg, 2 mL, Route: IVP, Drug form: INJ, Q6H, Dosing Weight 95, kg, PRN Nausea & Vomiting, Start date: 02/02/16 16:28:00 CDT, Duration: 30 day, Stop date: 03/03 16:27:00 CDT Notes: (Same as: Gale) MEDICATION WASTE Product Size: 4 mgProduct Was ainsley: 0 mg Start Date: 02/02/16 Stop Date: 02/04/16 Status: Discontinued Pepcid 40 mg oral tablet 40 mg, 2 tab, Route: PO, Drug form: TAB, Daily, Dosing Weight 95, kg, Start date : 02/08/16 21:30:00 CDT, Duration: 30 day, Stop date: 03/09/16 9:00:00 CDT Notes: (Same as: Pepcid) Start Date: 02/08/16 Stop Date: 02/12/16 Status: Discontinued potassium chloride 10 mEq, 100 mL, Route: IVPB, Drug form: INJ, PRN, Dosing Weight 95, kg, PRN Abno rmal Lab Result, For NON-ICU Patients Only, Start date: 02/04/16 18:06:00 CDT, D uration: 30 day, Stop date: 03/05/16 18:05:00 CDT Notes: Infuse at a rate of 10 mEq/hr.(Same as: KCL) Start Date: 02/04/16 Stop Date: 02/12/16 Status: Discontinued potassium chloride 20 mEq, 15 mL, Route: NJ, Drug form: LIQ, PRN, Dosing Weight 95, kg, PRN Abnorma l Lab Result, For NON-ICU Patients Only, Start date: 02/04/16 18:06:00 CDT, Dura tion: 30 day, Stop date: 03/05/16 18:05:00 CDT Notes: (Same as: Potassium Chloride) Start Date: 02/04/16 Stop Date: 02/12/16 Status: Discontinued potassium chloride 20 mEq, 1 tab, Route: PO, Drug form: ERTAB, PRN, Dosing Weight 95, kg, PRN Abnor mal Lab Result, For NON-ICU Patients Only, Start date: 02/04/16 18:06:00 CDT, Du ration: 30 day, Stop date: 03/05/16 18:05:00 CDT Notes: (Same as: K-Dur 20)"Do Not Crush" With food and full glass of water Start Date: 02/04/16 Stop Date: 02/12/16 Status: Discontinued potassium phosphate + Sodium Chloride 0.9% IV 250 mL 15 mmol, 5 mL, Route: IVPB, PRN, Dosing Weight 95, kg, PRN Abnormal Lab Result, For NON-ICU Patients Only., Start date: 02/04/16 18:06:00 CDT, Duration: 30 day, Stop date: 03/05/16 18:05:00 CDT Notes: (Same as: K Phosphate.) 1 mMol phoshate has 1.47 mEq potassium Infuse o steve 4 hours Start Date: 02/04/16 Stop Date: 02/12/16 Status: Discontinued potassium phosphate + Sodium Chloride 0.9% IV 250 mL 30 mmol, 10 mL, Route: IVPB, PRN, Dosing Weight 95, kg, PRN Abnormal Lab Result, For NON-ICU Patients Only., Start date: 02/04/16 18:06:00 CDT, Duration: 30 day, Stop date: 03/05/16 18:05:00 CDT Notes: (Same as: K Phosphate.) 1 mMol phoshate has 1.47 mEq potassium Infuse o steve 4 hours Start Date: 02/04/16 Stop Date: 02/12/16 Status: Discontinued potassium phosphate + Sodium Chloride 0.9% IV 250 mL 30 mmol, 10 mL, Route: IVPB, ONCE, Dosing Weight 95, kg, Start date: 02/04/16 7: 36:00 CDT, Stop date: 02/04/16 7:36:00 CDT Notes: (Same as: K Phosphate.) 1 mMol phoshate has 1.47 mEq potassium Infuse o steve 4 hours Start Date: 02/04/16 Stop Date: 02/04/16 Status: Completed potassium phosphate + Sodium Chloride 0.9% IV 250 mL 30 mmol, 10 mL, Route: IVPB, ONCE, Dosing Weight 95, kg, Priority: NOW, Start da te: 02/03/16 11:39:00 CDT, Stop date: 02/03/16 11:39:00 CDT Notes: (Same as: K Phosphate.) 1 mMol phoshate has 1.47 mEq potassium Infuse o steve 4 hours Start Date: 02/03/16 Stop Date: 02/03/16 Status: Completed potassium phosphate + Sodium Chloride 0.9% IV 250 mL 18 mmol, 6 mL, Route: IVPB, ONCE, Dosing Weight 95, kg, Start date: 02/06/16 19: 02:00 CDT, Stop date: 02/06/16 19:02:00 CDT Notes: (Same as: K Phosphate.) 1 mMol phoshate has 1.47 mEq potassium Infuse o steve 4 hours Start Date: 02/06/16 Stop Date: 02/06/16 Status: Completed potassium phosphate + Sodium Chloride 0.9% IV 250 mL 30 mmol, 10 mL, Route: IVPB, ONCE, Dosing Weight 95, kg, Start date: 02/05/16 7: 51:00 CDT, Stop date: 02/05/16 7:51:00 CDT Notes: (Same as: K Phosphate.) 1 mMol phoshate has 1.47 mEq potassium Infuse o steve 4 hours Start Date: 02/05/16 Stop Date: 02/05/16 Status: Completed potassium phosphate-sodium phosphate 250 mg-278 mg-164 mg oral powder 2 pkt, Route: PO, Drug Form: PDR/REC, Dosing Weight 95, kg, PRN, PRN Abnormal La b Result, For NON-ICU Patients Only, Start date: 02/04/16 18:06:00 CDT, Duration : 30 day, Stop date: 03/05/16 18:05:00 CDT Notes: (Same as: Neutra-Phos) Each 1.25 gm pkt has 250mg phosphorous. Mix w/2.5 oz water and stir. Start Date: 02/04/16 Stop Date: 02/12/16 Status: Discontinued Rocephin + Sodium Chloride 0.9% IV 100 mL 1 gm, Route: IVPB, ONCE, Dosing Weight 95, kg, Priority: STAT, Start date: 02/01 12:59:00 CDT, Stop date: 02/02/16 12:59:00 CDT Notes: (Same As: Rocephin).Use with 100 mL NS and infuse over 30 min MEDICA TION WASTE Product Size: 1000 mgProduct Wasted: 0 mg Start Date: 02/02/16 Stop Date: 02/02/16 Status: Completed Saline Flush 0.9% 10 mL, Route: IVP, Drug Form: INJ, Dosing Weight 95, kg, PRN, PRN Line Flush, St art date: 02/08/16 13:06:00 CDT, Duration: 30 day, Stop date: 03/09/16 13:05:00 CDT Notes: (Same as: BD Posiflush) Start Date: 02/08/16 Stop Date: 02/09/16 Status: Deleted Saline Flush 0.9% 10 mL, Route: IVP, Drug Form: INJ, Dosing Weight 95, kg, Q8H, Start date: 16:00:00 CDT, Duration: 30 day, Stop date: 03/09/16 8:00:00 CDT Notes: (Same as: BD Posiflush) Start Date: 02/08/16 Stop Date: 02/12/16 Status: Discontinued Saline Flush 0.9% 10 ml, Route: IVP, Drug Form: INJ, Dosing Weight 95, kg, PRN, PRN Line Flush, St art date: 02/02/16 16:28:00 CDT, Duration: 30 day, Stop date: 03/03/16 16:27:00 CDT Notes: (Same as: BD Posiflush) Start Date: 02/02/16 Stop Date: 02/12/16 Status: Discontinued Sodium Chloride 0.45% IV 1,000 mL 1,000 mL, Rate: 75 ml/hr, Infuse over: 13.3 hr, Route: IV, Dosing Weight 95 kg, Total Volume: 1,000, Start date: 02/02/16 16:28:00 CDT, Stop date: 03/03/16 16:2 7:00 CDT Start Date: 02/02/16 Stop Date: 02/05/16 Status: Discontinued Sodium Chloride 0.9% (Bolus) IV 1,000 mL, 1,000 ml/hr, Infuse Over: 1 hr, Route: IV, 1,000, Drug form: INJ, ONCE , Priority: STAT, Dosing Weight 95 kg, Start date: 02/02/16 14:06:00 CDT, Durati on: 1 doses or times, Stop date: 02/02/16 14:06:00 CDT Start Date: 02/02/16 Stop Date: 02/02/16 Status: Completed Sodium Chloride 0.9% (Bolus) IV 1,000 mL, 1,000 ml/hr, Infuse Over: 1 hr, Route: IV, 1,000, Drug form: INJ, ONCE , Priority: STAT, Dosing Weight 95 kg, Start date: 02/02/16 13:00:00 CDT, Durati on: 1 doses or times, Stop date: 02/02/16 13:00:00 CDT Start Date: 02/02/16 Stop Date: 02/02/16 Status: Completed sodium phosphate 15 mmol, Route: IVPB, PRN, Dosing Weight 95, kg, PRN Abnormal Lab Result, Start date: 02/04/16 7:36:00 CDT, Duration: 30 day, Stop date: 03/05/16 7:35:00 CDT Start Date: 02/04/16 Stop Date: 02/04/16 Status: Deleted sodium phosphate + Sodium Chloride 0.9% IV 250 mL 30 mmol, 10 mL, Route: IVPB, PRN, Dosing Weight 95, kg, PRN Abnormal Lab Result, For NON-ICU Patients Only., Start date: 02/04/16 18:06:00 CDT, Duration: 30 day, Stop date: 03/05/16 18:05:00 CDT Start Date: 02/04/16 Stop Date: 02/12/16 Status: Discontinued sodium phosphate + Sodium Chloride 0.9% IV 250 mL 15 mmol, 5 mL, Route: IVPB, PRN, Dosing Weight 95, kg, PRN Abnormal Lab Result, For NON-ICU Patients Only., Start date: 02/04/16 18:06:00 CDT, Duration: 30 day, Stop date: 03/05/16 18:05:00 CDT Start Date: 02/04/16 Stop Date: 02/12/16 Status: Discontinued sodium phosphate + Sodium Chloride 0.9% IV 250 mL 15 mmol, 5 mL, Route: IVPB, PRN, Dosing Weight 95, kg, PRN Abnormal Lab Result, Start date: 02/04/16 7:20:00 CDT, Duration: 30 day, Stop date: 03/05/16 7:19:00 CDT Start Date: 02/04/16 Stop Date: 02/12/16 Status: Discontinued spironolactone 25 mg, 1 tab, Route: PO, Drug form: TAB, BID, Dosing Weight 95, kg, Priority: NO W, Start date: 02/10/16 9:47:00 CDT, Duration: 3 day, Stop date: 02/13/16 6:00:0 0 CDT Notes: (Same As: Aldactone) Start Date: 02/10/16 Stop Date: 02/12/16 Status: Discontinued tamsulosin 0.4 mg oral capsule 0.4 mg=1 cap, PO, After Dinner, 0 Refill(s) Start Date: 02/12/16 Status: Ordered testosterone 200 mg/mL intramuscular solution 200 mg=1 ml, IM, q2wk, 0 Refill(s) Start Date: 02/02/16 Stop Date: 02/12/16 Status: Discontinued tramadol 50 mg oral tablet 50 mg=1 tab, PO, Q8H, PRN Pain Score 6-10, 0 Refill(s) Start Date: 02/02/16 Status: Ordered Tums 1,250 mg, 2.5 tab, Route: CHEW, Drug form: CHEWTAB, TID, Dosing Weight 95, kg, S tart date: 02/09/16 9:00:00 CDT, Duration: 30 day, Stop date: 03/09/16 17:00:00 CDT Notes: (Same As: Tums)Calcium Carbonate 500 qq=714 mg elemental calcium Dose=_ mg calcium carbonate ( mg elemental calcium) Start Date: 02/09/16 Stop Date: 02/12/16 Status: Discontinued Tylenol 650 mg, 2 tab, Route: PO, Drug form: TAB, ONCE, Dosing Weight 95, kg, Priority: STAT, Start date: 02/02/16 13:00:00 CDT, Stop date: 02/02/16 13:00:00 CDT Notes: Do not exceed 4 gm/day. (Same as: Tylenol) Start Date: 02/02/16 Stop Date: 02/02/16 Status: Completed Zofran 4 mg, 2 mL, Route: IV, Drug form: INJ, Q4H, Dosing Weight 95, kg, PRN Nausea, St art date: 02/04/16 21:54:00 CDT, Duration: 30 day, Stop date: 03/05/16 21:53:00 CDT Notes: (Same as: Zofran) MEDICATION WASTE Product Size: 4 mgProduct Was ainsley: ___ mg Start Date: 02/04/16 Stop Date: 02/12/16 Status: Discontinued Zosyn + Sodium Chloride 0.9% IV 100 mL 3.375 gm, Route: IV, [id number], Dosing Weight 95, kg, Start date: 02/02/16 18:00:00 CDT, Duration: 30 day, Stop date: 03/03/16 10:00:00 CDT Notes: (Same as: Zosyn)Dosing based on Piperacillin component MEDICATION WA ESPERANZA Product Size: 3375 mgProduct Wasted: 0 mg Start Date: 02/02/16 Stop Date: 02/05/16 Status: Discontinued Results ELECTROLYTES 1 2 3 Most recent to oldest [Reference Range]: 136 mEq/L (02/12/16 3:35 AM) 132 mEq/L *LOW* (02/11/16 10:54 AM) 137 mEq/L (02/08/16 8:35 AM) Sodium Lvl [135-145 mEq/L] 3.8 mEq/L (02/12/16 3:35 AM) 4.5 mEq/L (02/11/16 10:54 AM) 3.7 mEq/L (02/08/16 8:35 AM) Potassium Lvl [3.5-5.1 mEq/L] 102 mEq/L (02/12/16 3:35 AM) 101 mEq/L (02/11/16 10:54 AM) 103 mEq/L (02/08/16 8:35 AM) Chloride Lvl [95-109 mEq/L] 26 mEq/L (02/12/16 3:35 AM) 24 mEq/L (02/11/16 10:54 AM) 28 mEq/L (02/08/16 8:35 AM) CO2 [24-32 mEq/L] 11.8 mEq/L (02/12/16 3:35 AM) 11.5 mEq/L (02/11/16 10:54 AM) 9.7 mEq/L *LOW* (02/08/16 8:35 AM) AGAP [10.0-20.0 mEq/L] CHEM PANEL 1 2 3 Most recent to oldest [Reference Range]: 1.05 mg/dL (02/12/16 3:35 AM) 1.14 mg/dL (02/11/16 10:54 AM) 0.88 mg/dL (02/08/16 8:35 AM) Creatinine Lvl [0.50-1.40 mg/dL] 67 mL/min/1.73m2 1 *NA* (02/12/16 3:35 AM) 60 mL/min/1.73m2 2 *NA* (02/11/16 10:54 AM) 81 mL/min/1.73m2 3 *NA* (02/08/16 8:35 AM) eGFR 22 mg/dL (02/12/16 3:35 AM) 21 mg/dL (02/11/16 10:54 AM) 13 mg/dL (02/08/16 8:35 AM) BUN [7-22 mg/dL] 11 (02/03/16 4:31 AM) 10 (02/02/16 11:32 AM) B/C Ratio [6-25] 120 mg/dL *HI* (02/12/16 3:35 AM) 124 mg/dL *HI* (02/11/16 10:54 AM) 126 mg/dL *HI* (02/08/16 8:35 AM) Glucose Lvl [70-99 mg/dL] 8.1 g/dL (02/11/16 10:54 AM) 6.9 g/dL (02/03/16 4:31 AM) 8.3 g/dL (02/02/16 11:32 AM) Total Protein [6.4-8.4 g/dL] 3.2 g/dL *LOW* (02/11/16 10:54 AM) 2.9 g/dL *LOW* (02/03/16 4:31 AM) 3.8 g/dL (02/02/16 11:32 AM) Albumin Lvl [3.5-5.0 g/dL] 4.9 g/dL *HI* (02/11/16 10:54 AM) 4.0 g/dL (02/03/16 4:31 AM) 4.5 g/dL *HI* (02/02/16 11:32 AM) Globulin [2.0-4.0 g/dL] 0.7 (02/11/16 10:54 AM) 0.7 (02/03/16 4:31 AM) 0.8 (02/02/16 11:32 AM) A/G Ratio [0.7-1.6] 9.1 mg/dL (02/12/16 3:35 AM) 9.6 mg/dL (02/11/16 10:54 AM) 9.1 mg/dL (02/08/16 8:35 AM) Calcium Lvl [8.5-10.5 mg/dL] 2.7 mg/dL (02/12/16 3:35 AM) 2.5 mg/dL (02/11/16 10:54 AM) 2.6 mg/dL (02/06/16 10:15 PM) Phosphorus [2.5-4.5 mg/dL] 2.3 mg/dL (02/12/16 3:35 AM) 2.4 mg/dL (02/11/16 10:54 AM) 2.3 mg/dL (02/09/16 4:20 AM) Magnesium Lvl [1.8-2.4 mg/dL] 42 unit/L (02/11/16 10:54 AM) 15 unit/L (02/03/16 4:31 AM) 18 unit/L (02/02/16 11:32 AM) ALT [0-65 unit/L] 49 unit/L *HI* (02/11/16 10:54 AM) 28 unit/L (02/03/16 4:31 AM) 25 unit/L (02/02/16 11:32 AM) AST [0-37 unit/L] 106 unit/L (02/11/16 10:54 AM) 112 unit/L (02/03/16 4:31 AM) 113 unit/L (02/02/16 11:32 AM) Alk Phos [39-136 unit/L] 0.6 mg/dL (02/11/16 10:54 AM) 1.1 mg/dL (02/03/16 4:31 AM) 1.5 mg/dL *HI* (02/02/16 11:32 AM) Bili Total [0.2-1.3 mg/dL] 0.1 mg/dL (02/11/16 10:54 AM) Bili Direct [0.0-0.3 mg/dL] 0.5 mg/dL (02/11/16 10:54 AM) Bili Indirect [0.0-1.0 mg/dL] 2.0 mMol/L (02/02/16 2:06 PM) Lactic Acid Lvl [0.5-2.2 mMol/L] 0.19 ng/mL *HI* (02/08/16 8:00 AM) 0.83 ng/mL *HI* (02/05/16 5:15 AM) 0.40 ng/mL *HI* (02/02/16 2:06 PM) Procalcitonin Lvl [0.00-0.10 ng/mL] 1Result Comment: The eGFR is calculated using [...] 3 Most recent to oldest [Reference Range]: 346 unit/L *HI* (02/05/16 11:40 PM) 384 unit/L *HI* (02/05/16 5:35 PM) 532 unit/L *HI* (02/02/16 11:32 AM) Total CK [12-191 unit/L] 1.3 ng/mL (02/05/16 11:40 PM) 1.3 ng/mL (02/05/16 5:35 PM) 2.0 ng/mL (02/02/16 11:32 AM) CK MB [0.5-3.6 ng/mL] 0.4 (02/05/16 11:40 PM) 0.3 (02/05/16 5:35 PM) 0.4 (02/02/16 11:32 AM) CK MB Index [0.0-2.5] 0.02 ng/mL (02/05/16 11:40 PM) <0.02 ng/mL (02/05/16 5:35 PM) <0.02 ng/mL (02/02/16 11:32 AM) Troponin-I [0.00-0.40 ng/mL] 213 pg/mL *HI* (02/05/16 5:15 AM) BNP [<=100 pg/mL] SPECIAL CHEMISTRY 1 2 3 Most recent to oldest [Reference Range]: 6.3 % *HI* (02/12/16 3:49 PM) Hgb A1C [<=5.6 %] 43.9 ng/mL *HI* (02/02/16 7:36 PM) PSA [0.0-4.0 ng/mL] 19.16 ng/mL *NA* (02/02/16 7:36 PM) PSA Free 43.6 % (02/02/16 7:36 PM) Free PSA/PSA [>=25.0 %] TOXICOLOGY 1 2 3 Most recent to oldest [Reference Range]: see MAR *NA* (02/05/16 5:35 PM) Gent Tr TND 0.7 ug/ml *NA* (02/07/16 7:30 PM) Gent Lvl 0.3 ug/ml *NA* (02/05/16 5:35 PM) Gent Tr ENDOCRINOLOGY 1 2 3 Most recent to oldest [Reference Range]: 136 ng/dL 1 *LOW* (02/08/16 1:18 PM) Testosterone Tot [250-1100 ng/dL] 16.1 pg/mL 2 *LOW* (02/08/16 1:18 PM) Testosterone Free [30.0-135.0 pg/mL] 1Result Comment: Males: Men with clinically significant hypogonadal symptoms and testosterone values repeatedly in the range of the 200-300 ng/dL or less, may benefit from testosterone treatment after adequate risk and benefits counseling. 2Result Comment: Test Performed at: [facility], [address] [place] [id number] Harish Lafleur MD, [facility] URINE AND STOOL 1 2 3 Most recent to oldest [Reference Range]: Cloudy *ABN* (02/02/16 2:06 PM) UA Turbidity [Clear] [place] *ABN* (02/02/16 2:06 PM) UA Color [Yellow] 6.5 (02/02/16 2:06 PM) UA pH [5.0-8.0] 1.020 (02/02/16 2:06 PM) UA Spec Grav [<=1.030] 100 mg/dL *ABN* (02/02/16 2:06 PM) UA Glucose [Negative mg/dL] Large *ABN* (02/02/16 2:06 PM) UA Blood [Negative] 15 mg/dL *ABN* (02/02/16 2:06 PM) UA Ketones [Negative mg/dL] 100 mg/dL *ABN* (02/02/16 2:06 PM) UA Protein [Negative mg/dL] 1.0 EU/dL (02/02/16 2:06 PM) UA Urobilinogen [0.1-1.0 EU/dL] Small *ABN* (02/02/16 2:06 PM) UA Bili [Negative] Trace *ABN* (02/02/16 2:06 PM) UA Leuk Est [Negative] Positive *ABN* (02/02/16 2:06 PM) UA Nitrite [Negative] 3-5 /HPF (02/02/16 2:06 PM) UA WBC [None Seen /HPF] >100 /HPF *ABN* (02/02/16 2:06 PM) UA RBC [0-2 /HPF] Moderate /HPF (02/02/16 2:06 PM) UA Bacteria [None Seen /HPF] Rare /LPF (02/02/16 2:06 PM) UA Sq Epi [Few /LPF] Performed (02/02/16 2:06 PM) Micro? IMMUNOLOGY 1 2 3 Most recent to oldest [Reference Range]: 17.0 mg/L *HI* (02/11/16 10:54 AM) CRP [<=2.9 mg/L] HEMATOLOGY 1 2 3 Most recent to oldest [Reference Range]: 5.6 K/CMM (02/12/16 3:35 AM) 6.4 K/CMM (02/11/16 10:54 AM) 3.9 K/CMM (02/08/16 8:35 AM) WBC [3.7-10.4 K/CMM] 4.48 M/CMM *LOW* (02/12/16 3:35 AM) 5.05 M/CMM (02/11/16 10:54 AM) 4.61 M/CMM *LOW* (02/08/16 8:35 AM) RBC [4.70-6.10 M/CMM] 11.9 g/dL *LOW* (02/12/16 3:35 AM) 13.8 g/dL *LOW* (02/11/16 10:54 AM) 12.4 g/dL *LOW* (02/08/16 8:35 AM) Hgb [14.0-18.0 g/dL] 36.1 % *LOW* (02/12/16 3:35 AM) 40.7 % *LOW* (02/11/16 10:54 AM) 37.3 % *LOW* (02/08/16 8:35 AM) Hct [42.0-54.0 %] 80.7 fL (02/12/16 3:35 AM) 80.6 fL (02/11/16 10:54 AM) 80.9 fL (02/08/16 8:35 AM) MCV [80.0-94.0 fL] 26.5 pg *LOW* (02/12/16 3:35 AM) 27.3 pg (02/11/16 10:54 AM) 26.9 pg *LOW* (02/08/16 8:35 AM) MCH [27.0-31.0 pg] 32.8 g/dL (02/12/16 3:35 AM) 33.8 g/dL (02/11/16 10:54 AM) 33.2 g/dL (02/08/16 8:35 AM) MCHC [32.0-36.0 g/dL] 16.2 % *HI* (02/12/16 3:35 AM) 16.5 % *HI* (02/11/16 10:54 AM) 16.4 % *HI* (02/08/16 8:35 AM) RDW [11.5-14.5 %] 178 K/CMM (02/12/16 3:35 AM) 160 K/CMM (02/11/16 10:54 AM) 165 K/CMM (02/08/16 8:35 AM) Platelet [133-450 K/CMM] 9.7 fL (02/12/16 3:35 AM) 10.1 fL (02/11/16 10:54 AM) 9.1 fL (02/08/16 8:35 AM) MPV [7.4-10.4 fL] 69.2 % (02/12/16 3:35 AM) 69.3 % (02/11/16 10:54 AM) 66.5 % (02/08/16 8:35 AM) Segs [45.0-75.0 %] 21.2 % (02/12/16 3:35 AM) 22.8 % (02/11/16 10:54 AM) 20.4 % (02/08/16 8:35 AM) Lymphocytes [20.0-40.0 %] 9.0 % (02/12/16 3:35 AM) 7.1 % (02/11/16 10:54 AM) 12.5 % *HI* (02/08/16 8:35 AM) Monocytes [2.0-12.0 %] 0.1 % (02/12/16 3:35 AM) 0.3 % (02/11/16 10:54 AM) 0.1 % (02/08/16 8:35 AM) Eosinophils [0.0-4.0 %] 0.5 % (02/12/16 3:35 AM) 0.5 % (02/11/16 10:54 AM) 0.5 % (02/08/16 8:35 AM) Basophils [0.0-1.0 %] 3.9 K/CMM (02/12/16 3:35 AM) 4.4 K/CMM (02/11/16 10:54 AM) 2.6 K/CMM (02/08/16 8:35 AM) Segs-Bands # [1.5-8.1 K/CMM] 1.2 K/CMM (02/12/16 3:35 AM) 1.4 K/CMM (02/11/16 10:54 AM) 0.8 K/CMM *LOW* (02/08/16 8:35 AM) Lymphocytes # [1.0-5.5 K/CMM] 0.5 K/CMM (02/12/16 3:35 AM) 0.5 K/CMM (02/11/16 10:54 AM) 0.5 K/CMM (02/08/16 8:35 AM) Monocytes # [0.0-0.8 K/CMM] 0.2 K/CMM (02/03/16 4:31 AM) 0.1 K/CMM (02/02/16 11:00 AM) Basophils # [0.0-0.2 K/CMM] Normal (02/11/16 10:54 AM) Normal (02/08/16 8:35 AM) RBC Morph Normal (02/11/16 10:54 AM) Plt Morph Moderate *ABN* (02/11/16 10:54 AM) Moderate *ABN* (02/08/16 8:35 AM) Large Plt [None Seen] 13.1 seconds (02/08/16 3:09 PM) PT [12.0-14.7 seconds] 0.96 (02/08/16 3:09 PM) INR [0.85-1.17] 36.9 seconds *HI* (02/02/16 7:36 PM) PTT [22.9-35.8 seconds] Immunizations No data available for this section Procedures Procedure Date Related Diagnosis Body Site Carpal tunnel release Cholecystectomy Rotator cuff repair Social History Social History Type Response Smoking Status Never smoker; Exposure to Tobacco Smoke None; Cigarette Smoking Last 365 Days No; Reg Smoking Cessation Counseling No Assessment and Plan Extracted from: Title: Hospitalist discharge Author: Jose Montero MD Date: 02/12/16 summary *Admission date: 02/02/2016 *Discharge date: 02/12/2016 *Admission diagnosis: 1. Sepsis 2nd to acute bacterial prostatitis vs UTI. 2. Acute renal failure. 3. Obstructive uropathy 2nd to BPH/prostatis. *Discharge diagnosis: 1. Resolved sepsis. 2. Acute bacterial prostatitis with multiple small abscesses. 3. Obstructive uropathy 2nd to BPH/prostatitis s/p Zelaya placement. *Secondary diagnosis: -DM2 -Hypertension. *Pertinent imaging studies: -MRI of the pelvis: Enlargement of the prostate with periprosthetic inflammation and fat stranding is suggestive of acute prostatitis. Multiple small (less than 1 cm) rim- enhancing fluid collections in the prostate may represent small abscesses. Increased edema and thickening of the rectal wall posterior to the 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 *Consultations: - dr. Conroy, urologist. - dr. Avila, infectious disease. HOSPITAL COURSE: 80 years old male with history of hypertension, DM2. The patient presented with signs of sepsis with fever, tachycardia, leukocytosis. He was having lower abdominal pain and unable to void. He was found to have urinary retention. After zelaya catheter was placed 800ml of urine was drained. CT scan showed signs of prostatitis. He was admitted to the surgical floor and started on IVFs and IV antibiotic therapy. Urologist and ID were consulted. Urologist recommended medical treatment with antibiotics and f/u for surgical consideration as an outpatient. MRI of the pelvis confirmed prostatitis and showed small (<1cm) abscesses. ID recommended 4 weeks of IV antibiotic therapy with Meropenem. Urine and blood cultures were negative. Sepsis resolved. Renal failure resolved. The patient has being hemodynamically stable. He will be discharged to SNF for IV abx therapy. The patient was using IM testosterone. He was advised to stop that since it can cause prostatitis and prostate enlargement. -Of note, patient is diabetic. Metformin was held due to sepsis. He is being normoglycemic most of the time with occasional hyperglycemia. I will switch to glipizide 2.5mg/d. PHYSICAL EXAM: VitalsTmp(F)[id number] 02/11 12:[id number]--- 02/11 07:[id number]--- 02/11 00:[id number]--- 02/10 19:[id number]--- 02/10 12:[id number]--- 24 Hr Tmax: 98.4F (36.89c) at 02/11 00:00Vital Signs are the last 5 in the past 48 hours. Medications on discharge: - Please see completed medication reconciliation list. -Patient condition upon discharge: hemodynamically stable. -Disposition: SNF. -Follow up: dr. Conroy, urologist, in 1 week. PCP in 2 weeks. Discharge planning took approximately 35 minutes. Extracted from: Title: Hospitalist progress note Author: Jose Montero MD Date: 02/12/16 SUBJECTIVE: Afebrile. No vomiting. VitalsTmp(F)[id number] 02/11 07:[id number]--- 02/11 00:[id number]--- 02/10 19:[id number]--- 06/01 12:[id number]--- 02/10 07:[id number]--- 24 Hr Tmax: 98.4F (36.89c) at 02/11 00:00Vital Signs are the last 5 in the past 48 hours. PHYSICAL EXAM: General: awake and alert. HEENT: OMARI, EOMI. Neck: supple, no JVD. Chest: clear breath sounds bilaterally, no wheezing. Cardiovascular: regular rate and rhythm, no murmurs. Abodmen: soft, non tender. no organomegaly. Extremities: no peripheral edema. Pulses equal. : zelaya in place. No hematuria. Skin: no rash. 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 no focal signs. Labs/imaging: [facility] BUN: 22 02/12/16 Hct: 36.1 Low 02/12/16 Hgb: 11.9 Low 02/12/16 MCH: 26.5 Low 02/12/16 MCHC: 32.8 02/12/16 MCV: 80.7 02/12/16 MPV: 9.7 02/12/16 Platelet: 178 02/12/16 RBC: 4.48 Low 02/12/16 RDW: 16.2 High 02/12/16 WBC: 5.6 02/12/16 CK MB: 1.3 02/06/16 ASSESSMENT/PLAN: 1. Resolved sepsis. 2. Acute prostatis with abscess. Recommend 4 weeks of IV meropenem as per ID recommendations. Small (less than 1cm) abscesses in prostate. PICC line placed. 3. Uncontrolled hypertension. Now bp on goal. I will decrease metoprolol to 50mg bid. Will resume lisinopril if needed. 4. Acute renal failure, resolved. 5. Obstructive uropathy 2nd to bph/prostatitis. Zelaya in placed. Will need outpatient follow up. I will recommend to stop testosterone treatment since it can cause prostatitis, bph. 6. DM2. Metformin held due to sepsis and ARF. Will resume diabetic diet. I will get a1c. Awaiting SNF placement for IV abx. Extracted from: Title: Hospitalist History and Author: Lulú Logan MD Date: 02/02/16 Physical Assessment/Plan sepsis 2/2 uti/prostatitis in the setting of urinary retention: will start the patient on zosyn; await urine culture; urology c/s htn: continue bp meds arf: 2/2 obstruction DM: poct iss; hold oha Prophylaxis hsq Disposition admit as inpatient
--- OUTSIDE RECORDS SUMMARY | 2018-12-13 03:58 | XMS REPORT | Summary of Care ---
Author Author [facility] [place] Organization [facility] [place] Address Unknown Phone Unavailable Encounter HQ Clydentr_meghan(FIN) [id number] Date(s): 12/26/17 - 12/26/17 [facility] [place] [address] [place] [phone] Discharge Disposition: Home or Self Care Attending Physician: Eladio Saini DO Vital Signs No data available for this section Problem List Condition Effective Dates Status Health Status Informant DM (diabetes Resolved mellitus)(Confirmed) HTN Resolved (hypertension)(Confi rmed) Arthritis(Confirmed) Resolved Vertigo(Confirmed) Resolved Allergies, Adverse Reactions, Alerts Substance Reaction Severity Status ciprofloxacin Active Medications No data available for this section Results No data available for this section Immunizations No data available for this section Procedures Procedure Date Related Diagnosis Body Site Status Carpal tunnel release Completed Cholecystectomy Completed Rotator cuff repair Completed Social History Social History Type Response Alcohol Never Smoking Status Never smoker; Ready to change: No; Concerns about tobacco use in household: No; Exposure to Tobacco Smoke None; Cigarette Smoking Last 365 Days No; Reg Smoking Cessation Counseling No entered on: 11/19/16 Assessment and Plan No data available for this section
--- OUTSIDE RECORDS SUMMARY | 2018-12-13 03:58 | XMS REPORT | Summary of Care ---
Author Author [facility] [place] Organization [facility] [place] Address Unknown Phone Unavailable Encounter HQ Rohith_meghan(FIN) [id number] Date(s): 12/07/18 - 12/07/18 [facility] [place] [address] [phone] Discharge Disposition: Home or Self Care Attending Physician: Eladio Saini DO Referring Physician: Eladio Saini DO Vital Signs No [...]
--- OUTSIDE RECORDS SUMMARY | 2018-12-13 03:58 | XMS REPORT | Summary of Care ---
Author Author [facility] [place] Organization [facility] [place] Address Unknown Phone Unavailable Encounter HQ Clydentr_meghan(FIN) [id number] Date(s): 01/09/18 - 01/09/18 [facility] [place] [address] [place] [phone] Encounter Diagnosis Dizziness and giddiness (Final) - Cerebral ischemia (Final) - Other specified disorders of brain (Final) - Discharge Disposition: Home or Self Care Attending [...]
--- OUTSIDE RECORDS SUMMARY | 2018-12-13 03:58 | XMS REPORT | Summary of Care ---
Author Author [facility] [place] Organization [facility] [place] Address Unknown Phone Unavailable Encounter HQ Clydentr_meghan(FIN) [id number] Date(s): 11/29/17 - 11/29/17 [facility] [place] [address] [phone] Encounter Diagnosis Pain in right knee (Final) - 12/05/17 Pain in left elbow (Final) - Discharge Disposition: Home or Self [...]
--- OUTSIDE RECORDS SUMMARY | 2018-12-13 03:58 | XMS REPORT | Continuity of Care Document ---
Author Author [facility] Interface Address Unknown Phone Unavailable Problems Problem Status Onset Date Classification Date Reported Comments Source Pain in right knee 12/06/2017 03/07/2018 [facility] [place] HTN/DM Active 11/18/2016 [facility] HYPONATREMIA, HYPOKALEMIA Active 11/18/2016 [facility] UNABLE TO VOID Active 02/02/2016 [facility] DM (<span ID="[id number]</span>) Resolved Problem 12/10/2018 [facility] [place], [facility] [place] HTN (<span [id number]">Confirmed</span>) Resolved Problem 12/10/2018 [facility] [place], [facility] [place] Arthritis Resolved Problem 12/10/2018 [facility] [place], [facility] [place] Vertigo Resolved Problem 12/10/2018 [facility] [place], [facility] [place] Dizziness and giddiness 01/18/2018 [facility] [place] Cerebral ischemia 01/18/2018 [facility] [place] Other specified disorders of brain 01/18/2018 [facility] [place] Pain in left elbow 03/07/2018 [facility] [place] Final: Secondary hypertension, unspecified 11/25/2016 [facility] SEPSIS DUE TO UNSPECIFIED STAPHYLOCOCCUS Active [facility] SECONDARY HYPERTENSION, UNSPECIFIED Active [facility] HYPO-OSMOLALITY AND HYPONATREMIA Active [facility] HYPOKALEMIA Active [facility] Medications Medication Details Route Status Patient Instructions Ordering Provider Order Date Source Metformin hydrochloride 1000 MG Oral Tablet 1,000 mg=1 tab, PO, BID, # 60 tab, 0 Refill(s) Active 11/22/2016 [facility] carvedilol 12.5 mg oral tablet 12.5 mg=1 tab, PO, Q12H, # 60 tab, 0 Refill(s) Active 11/22/2016 [facility] Amoxicillin 875 MG / Clavulanate 125 MG Oral Tablet [Augmentin 875-mg] 1 tab, PO, Q12H, X 10 day, # 20 tab, 0 Refill(s) Active 11/22/2016 [facility] Acetaminophen 300 MG / Codeine Phosphate 30 MG Oral Tablet [Tylenol with Codeine #3] 1 - 2 tab, PO, Q4H, PRN Pain, X 2 day, # 20 tab, 0 Refill(s) No Longer Active 11/22/2016 [facility] Amoxicillin 875 MG / Clavulanate 125 MG Oral Tablet [Augmentin 875-mg] 1 tab, Route: PO, Drug Form: TAB, Dosing Weight 217, kg, Q12H, Start date: 11/22/16 9:00:00 CDT, Duration: 10 day, Stop date: 12/01/16 21:00:00 CDTNotes: With food. (Same as: Augmentin 875) Inactive 11/22/2016 [facility] Metformin hydrochloride 1000 MG Oral Tablet 1,000 mg, 2 tab, Route: PO, Drug form: TAB, BID, Dosing Weight 217, kg, Start date: 11/21/16 9:00:00 CDT, Duration: 30 day, Stop date: 12/20/16 17:00:00 CDTNotes: (Same as: Glucophage) Take with meal No Longer Active 11/21/2016 [facility] Glipizide 2.5 mg, 0.5 tab, Route: PO, Drug form: TAB, Before Breakfast, Dosing Weight 217, kg, Start date: 11/21/16 7:30:00 CDT, Duration: 30 day, Stop date: 12/20/16 7:30:00 CDTNotes: (Same as: Glucotrol) 30 min before meals. No Longer Active 11/21/2016 [facility] Benzocaine 15 MG / Menthol 3.6 MG Lozenge [Cepacol Sore Throat Pain Relief 15/3.6] 1 lozenge, Route: MUCOUS MEM, Drug Form: CHUCHO, Dosing Weight 217, kg, Q4H, PRN Sore Throat, Start date: 11/20/16 20:42:00 COMPUTER TECHNICAL SPECIALIST, Duration: 30 day, Stop date: 12/20/16 20:41:00 CDTNotes: Same as: Cepacol No Longer Active 11/21/2016 [facility] Amlodipine 10 mg, 2 tab, Route: PO, Drug form: TAB, Daily, Dosing Weight 217, kg, Start date: 11/20/16 9:00:00 COMPUTER TECHNICAL SPECIALIST, Duration: 30 day, Stop date: 12/19/16 9:00:00 CDTNotes: (Same as: Norvasc) No Longer Active 11/20/2016 [facility] metoprolol tartrate 50 mg, 1 tab, Route: PO, Drug form: TAB, Q12H, Dosing Weight 217, kg, Start date: 11/19/16 21:00:00 COMPUTER TECHNICAL SPECIALIST, Duration: 30 day, Stop date: 12/19/16 9:00:00 CDTNotes: (Same as: Lopressor) Inactive 11/20/2016 [facility] Coreg 12.5 mg, 1 tab, Route: PO, Drug form: TAB, Q12H, Dosing Weight 217, kg, Start date: 11/19/16 21:00:00 COMPUTER TECHNICAL SPECIALIST, Duration: 30 day, Stop date: 12/19/16 9:00:00 CDTNotes: Give with food. (Same As: Coreg) No Longer Active 11/20/2016 [facility] Fluticasone propionate 0.05 MG/ACTUAT Metered Dose Nasal [place] [Flonase] 2 spray, Route: Each Affected Nostril, Drug Form: SPRY, Dosing Weight 217, kg, BID, PRN Congestion, Start date: 11/19/16 19:36:00 COMPUTER TECHNICAL SPECIALIST, Duration: 30 day, Stop date: 12/19/16 19:35:00 CDTNotes: (Same as: Flonase) No Longer Active 11/20/2016 [facility] tamsulosin 0.4 mg, 1 cap, Route: PO, Drug form: CAP, After Dinner, Dosing Weight 217, kg, Start date: 11/19/16 17:00:00 COMPUTER TECHNICAL SPECIALIST, Duration: 30 day, Stop date: 12/18/16 17:00:00 CDTNotes: (Same As: Flomax) "Do Not Crush" No Longer Active 11/19/2016 [facility] Doxazosin 1 mg, 1 tab, Route: PO, Drug form: TAB, Daily, Dosing Weight 217, kg, Start date: 11/19/16 17:00:00 COMPUTER TECHNICAL SPECIALIST, Duration: 30 day, Stop date: 12/18/16 17:00:00 CDTNotes: (Same as: Cardura) No Longer Active 11/19/2016 [facility] benzonatate 100 mg, Route: PO, Drug form: CAP, TID, Dosing Weight 217, kg, Start date: 11/19/16 17:00:00 COMPUTER TECHNICAL SPECIALIST, Duration: 30 day, Stop date: 12/19/16 13:00:00 CDT Inactive 11/19/2016 [facility] Acetaminophen 325 MG / Hydrocodone Bitartrate 5 MG Oral Tablet 1 tab, Route: PO, Drug Form: TAB, Dosing Weight 217, kg, Q4H, PRN Pain Score 7-10, Start date: 11/19/16 14:40:00 COMPUTER TECHNICAL SPECIALIST, Duration: 30 day, Stop date: 12/19/16 14:39:00 CDTNotes: (Same as: [place] 325/5) Do not exceed 4gm/day of acetaminophen. No Longer Active 11/19/2016 [facility] Acetaminophen 300 MG / Codeine Phosphate 30 MG Oral Tablet [Tylenol with Codeine #3] 1 tab, Route: PO, Drug Form: TAB, Dosing Weight 217, kg, Q4H, PRN Pain Score 4-6, Start date: 11/19/16 14:40:00 COMPUTER TECHNICAL SPECIALIST, Duration: 30 day, Stop date: 12/19/16 14:39:00 CDTNotes: Do not exceed 4gm/day of evette taminophen. (Same as: Tylenol with Codeine # 3) No Longer Active 11/19/2016 [facility] benzonatate 100 mg, 1 cap, Route: PO, Drug form: CAP, TID, Dosing Weight 217, kg, PRN Cough/Congestion, Start date: 11/19/16 13:34:00 COMPUTER TECHNICAL SPECIALIST, Duration: 30 day, Stop date: 12/19/16 13:33:00 CDTNotes: (Same As: Racquel Bui) "Do Not Crush" No Longer Active 11/19/2016 [facility] Hydralazine 10 mg, 0.5 mL, Route: IVP, Drug form: INJ, Q6H, Dosing Weight 217, kg, PRN Hypertension, Start date: 11/19/16 13:33:00 COMPUTER TECHNICAL SPECIALIST, Duration: 30 day, Stop date: 12/19/16 13:32:00 CDTNotes: (Same as: Apresoline) Push over 5 minutes No Longer Active 11/19/2016 [facility] Insulin, Aspart, Human 5 unit, 0.05 mL, Route: SUB-Q, Drug form: SOLN, TID-Before Meals, Dosing Weight 217, kg, PRN Blood Glucose Results, Start date: 11/19/16 13:33:00 COMPUTER TECHNICAL SPECIALIST, Duration: 30 day, Stop date: 12/19/16 13:32:00 CDTNotes: Roll in palms of hands gently; Do not shake vigorously. (Same as: NovoLOG) "single patient use only" WASTE: F/P - Black; E - Municipal Trash Bin Stable for 28 days at room temperature. Expires in days from Date No Longer Active 11/19/2016 [facility] Dextrose 50% Syringe 12.5 gm, 25 mL, Route: IVP, Drug Form: INJ, Dosing Weight 217, kg, PRN, PRN Blood Glucose Results, Start date: 11/19/16 13:33:00 COMPUTER TECHNICAL SPECIALIST, Duration: 30 day, Stop date: 12/19/16 14:32:00 CDT No Longer Active 11/19/2016 [facility] Glucagon 1 mg, Route: IM, Drug form: PDR/INJ, PRN, Dosing Weight 217, kg, PRN Blood Glucose Results, Start date: 11/19/16 13:33:00 COMPUTER TECHNICAL SPECIALIST, Duration: 30 day, Stop date: 12/19/16 14:32:00 CDT No Longer Active 11/19/2016 [facility] Fluticasone propionate 0.05 MG/ACTUAT Metered Dose Nasal [place] [Flonase] 2 spray, Route: Each Affected Nostril, Drug Form: SPRY, Dosing Weight 217, kg, Daily, PRN Congestion, Start date: 11/19/16 13:23:00 COMPUTER TECHNICAL SPECIALIST, Duration: 30 day, Stop date: 12/19/16 13:22:00 CDTNotes: (Same as: Flonase) Inactive 11/19/2016 [facility] Docusate Sodium 100 MG Oral Capsule 100 mg, 1 cap, Route: PO, Drug form: CAP, BID, Dosing Weight 217, kg, PRN Constipation, Start date: 11/19/16 13:18:00 COMPUTER TECHNICAL SPECIALIST, Duration: 30 day, Stop date: 12/19/16 13:17:00 CDTNotes: (Same as: Colace) (Do Not Crush) No Longer Active 11/19/2016 [facility] Acetaminophen 325 MG / Hydrocodone Bitartrate 5 MG Oral Tablet 1 tab, Route: PO, Drug Form: TAB, Dosing Weight 217, kg, Q4H, PRN Pain Score 4-6, Start date: 11/19/16 13:15:00 COMPUTER TECHNICAL SPECIALIST, Duration: 30 day, Stop date: 12/19/16 13:14:00 CDTNotes: (Same as: [place] 325/5) Do not exceed 4gm/day of acetaminophen. Inactive 11/19/2016 [facility] Ondansetron 4 mg, 2 mL, Route: IVP, Drug form: INJ, Q6H, Dosing Weight 217, kg, PRN Nausea & Vomiting, Start date: 11/19/16 13:15:00 COMPUTER TECHNICAL SPECIALIST, Duration: 30 day, Stop date: 12/19/16 13:14:00 CDTNotes: (Same as: Gale) MEDICATION WASTE Product Size: 4 mg Product Wasted: ___ mg No Longer Active 11/19/2016 [facility] Acetaminophen 650 mg, 2 tab, Route: PO, Drug form: TAB, Q4H, Dosing Weight 217, kg, PRN Pain 1-3/Temp > 100.4 F, Start date: 11/19/16 13:15:00 COMPUTER TECHNICAL SPECIALIST, Duration: 30 day, Stop date: 12/19/16 13:14:00 CDTNotes: Do not e xceed 4 gm/day. (Same as: Tylenol) No Longer Active 11/19/2016 [facility] sodium phosphate + D5W 240 mL 30 mmol, 10 mL, Route: IVPB, PRN, Dosing Weight 217, kg, PRN Abnormal Lab Result, For NON-ICU Patients Only., Start date: 11/19/16 13:13:00 COMPUTER TECHNICAL SPECIALIST, Duration: 30 day, Stop date: 12/19/16 14:12:00 CDT No Longer Active 11/19/2016 [facility] sodium phosphate + D5W 245 mL 15 mmol, 5 mL, Route: IVPB, PRN, Dosing Weight 217, kg, PRN Abnormal Lab Result, For NON-ICU Patients Only., Start date: 11/19/16 13:13:00 COMPUTER TECHNICAL SPECIALIST, Duration: 30 day, Stop date: 12/19/16 14:12:00 CDT No Longer Active 11/19/2016 [facility] Calcium Gluconate 3 gm, 30 mL, Route: IVPB, PRN, Dosing Weight 217, kg, PRN Abnormal Lab Result, For NON-ICU Patients Only., Start date: 11/19/16 13:13:00 COMPUTER TECHNICAL SPECIALIST, Duration: 30 day, Stop date: 12/19/16 14:12:00 CDTNotes: WASTE: F/P - Sink; E - Municipal Trash Bin No Longer Active 11/19/2016 [facility] Magnesium Sulfate 2 gm, 50 mL, Route: IVPB, Drug form: INJ, PRN, Dosing Weight 217, kg, PRN Abnormal Lab Result, For NON-ICU Patients Only., Start date: 11/19/16 13:13:00 COMPUTER TECHNICAL SPECIALIST, Duration: 30 day, Stop date: 12/19/16 14:12:00 CDTNotes: WASTE: F/P - Sink; E - Municipal Trash Bin No Longer Active 11/19/2016 [facility] Magnesium Oxide 800 mg, 2 tab, Route: PO, Drug form: TAB, PRN, Dosing Weight 217, kg, PRN Abnormal Lab Result, For NON-ICU Patients Only., Start date: 11/19/16 13:13:00 COMPUTER TECHNICAL SPECIALIST, Duration: 30 day, Stop date: 12/19/16 14:12:00 CDTNotes: (Same as: Mag-Ox 400) Magnesium oxide [id number] elemental magnesium Dose=____mg magnesium oxide (___mg elemental magnesium) No Longer Active 11/19/2016 [facility] potassium phosphate-sodium phosphate 250 mg-280 mg-160 mg oral powder for reconstitution 2 pkt, Route: PO, Drug Form: PDR/REC, Dosing Weight 217, kg, PRN, PRN Abnormal Lab Result, For NON-ICU Patients Only, Start date: 11/19/16 13:13:00 COMPUTER TECHNICAL SPECIALIST, Duration: 30 day, Stop date: 12/19/16 14:12:00 CDTNotes: (Same as: Phos-NaK) Each 1.5 gm pkt has 250mg phosphorous. Mix w/2.5oz water and stir. No Longer Active 11/19/2016 [facility] potassium phosphate + sodium chloride 0.9% INJ 240 mL 30 mmol, 10 mL, Route: IVPB, PRN, Dosing Weight 217, kg, PRN Abnormal Lab Result, For NON-ICU Patients Only., Start date: 11/19/16 13:13:00 COMPUTER TECHNICAL SPECIALIST, Duration: 30 day, Stop date: 12/19/16 14:12:00 CDTNotes: (Same as: K Phosphate.) 1 mMol phoshate has 1.47 mEq potassium Infuse over 4 hours No Longer Active 11/19/2016 [facility] potassium phosphate + sodium chloride 0.9% INJ 245 mL 15 mmol, 5 mL, Route: IVPB, PRN, Dosing Weight 217, kg, PRN Abnormal Lab Result, For NON-ICU Patients Only., Start date: 11/19/16 13:13:00 COMPUTER TECHNICAL SPECIALIST, Duration: 30 day, Stop date: 12/19/16 14:12:00 CDTNotes: (Same as: K Phosphate.) 1 mMol phoshate has 1.47 mEq potassium Infuse over 4 hours No Longer Active 11/19/2016 [facility] potassium chloride 20 mEq, 15 mL, Route: NJ, Drug form: LIQ, PRN, Dosing Weight 217, kg, PRN Abnormal Lab Result, For NON-ICU Patients Only, Start date: 11/19/16 13:13:00 COMPUTER TECHNICAL SPECIALIST, Duration: 30 day, Stop date: 12/19/16 14:12:00 CDTNotes: (Same as: Potassium Chloride) No Longer Active 11/19/2016 [facility] Sodium Chloride 0.154 MEQ/ML Injectable Solution 1,000 mL, Rate: 100 ml/hr, Infuse over: 10 hr, Route: IV, Dosing Weight 217 kg, Total Volume: 1,000, Start date: 11/19/16 12:58:00 COMPUTER TECHNICAL SPECIALIST, Duration: 30 day, Stop date: 12/19/16 12:57:00 CDT No Longer Active 11/19/2016 [facility] metoprolol tartrate 50 mg, 1 tab, Route: PO, Drug form: TAB, BID, Dosing Weight 95, kg, Start date: 02/12/16 17:00:00 CDT, Duration: 30 day, Stop date: 03/13/16 9:00:00 CDTNotes: (Same as: Lopressor) Inactive 02/12/2016 [facility] meropenem 500 MG Injection [Merrem] 500 mg, IV, Q6H Active 02/12/2016 [facility] Glipizide 5 MG Oral Tablet 2.5 mg=0.5 tab, PO, Daily, # 15 tab, 0 Refill(s) Active 02/12/2016 [facility] tamsulosin 0.4 mg oral capsule 0.4 mg=1 cap, PO, After Dinner, 0 Refill(s) Active 02/12/2016 [facility] metoprolol tartrate 50 mg oral tablet 50 mg=1 tab, PO, BID, 0 Refill(s) Active 02/12/2016 [facility] docusate sodium 100 mg oral capsule 100 mg=1 cap, PO, BID, PRN Constipation, 0 Refill(s) Active 02/12/2016 [facility] Acetaminophen 325 MG / Hydrocodone Bitartrate 5 MG Oral Tablet [[place] 5/325] 1 tab, PO, Q6H, PRN Pain Score 1-3, 0 Refill(s) Active 02/12/2016 [facility] Spironolactone 25 mg, 1 tab, Route: PO, Drug form: TAB, BID, Dosing Weight 95, kg, Priority: NOW, Start date: 02/10/16 9:47:00 CDT, Duration: 3 day, Stop date: 02/13/16 6:00:00 CDTNotes: (Same As: Aldactone) No Longer Active 02/10/2016 [facility] Gentamicin level scheduled Gentamicin level scheduled, Gent level due, Drug form: MISC, Route: MISC, ONCE, 02/09/16 19:30:00 CDT, Stop date: 02/09/16 19:30:00 CDT No Longer Active 02/10/2016 [facility] Tums 1,250 mg, 2.5 tab, Route: CHEW, Drug form: CHEWTAB, TID, Dosing Weight 95, kg, Start date: 02/09/16 9:00:00 CDT, Duration: 30 day, Stop date: 03/09/16 17:00:00 CDTNotes: (Same As: Tums) Calcium Carbonate 500 hz=735 mg elemental calcium Dose= mg calcium carbonate ( mg elemental calcium) No Longer Active 02/09/2016 [facility] Famotidine 40 MG Oral Tablet [Pepcid] 40 mg, 2 tab, Route: PO, Drug form: TAB, Daily, Dosing Weight 95, kg, Start date: 02/08/16 21:30:00 CDT, Duration: 30 day, Stop date: 03/09/16 9:00:00 CDTNotes: (Same as: Pepcid) No Longer Active 02/09/2016 [facility] Flomax 0.4 mg, 1 cap, Route: PO, Drug form: CAP, After Dinner, Dosing Weight 95, kg, Start date: 02/08/16 17:00:00 CDT, Duration: 30 day, Stop date: 03/08/16 17:00:00 CDTNotes: (Same As: Flomax) "Do Not Crush" No Longer Active 02/08/2016 [facility] Saline Flush 0.9% 10 mL, Route: IVP, Drug Form: INJ, Dosing Weight 95, kg, Q8H, Start date: 02/08/16 16:00:00 CDT, Duration: 30 day, Stop date: 03/09/16 8:00:00 CDTNotes: (Same as: BD Posiflush) No Longer Active 02/08/2016 [facility] Lidocaine Hydrochloride 10 MG/ML Injectable Solution 50 mg, 5 mL, Route: INTRADERM, Drug Form: INJ, Dosing Weight 95, kg, ONCALL, Start date: 02/08/16 14:00:00 CDT, Duration: 30 day, Stop date: 03/09/16 13:59:00 CDTNotes: Preservative free. (Same as: Xylocaine MPF) No Longer Active 02/08/2016 [facility] Saline Flush 0.9% 10 mL, Route: IVP, Drug Form: INJ, Dosing Weight 95, kg, PRN, PRN Line Flush, Start date: 02/08/16 13:06:00 CDT, Duration: 30 day, Stop date: 03/09/16 13:05:00 CDTNotes: (Same as: BD Posiflush) No Longer Active 02/08/2016 [facility] Gentamicin level scheduled Gentamicin level scheduled, Gent level due, Drug form: MISC, Route: MISC, ONCE, 02/07/16 19:30:00 CDT, Stop date: 02/07/16 19:30:00 CDT Inactive 02/08/2016 [facility] potassium phosphate + Sodium Chloride 0.9% IV 250 mL 18 mmol, 6 mL, Route: IVPB, ONCE, Dosing Weight 95, kg, Start date: 02/06/16 19:02:00 CDT, Stop date: 02/06/16 19:02:00 CDTNotes: (Same as: K Phosphate.) 1 mMol phoshate has 1.47 mEq potassium Infuse over 4 hours Inactive 02/07/2016 [facility] metoprolol tartrate 50 mg, 1 tab, Route: PO, Drug form: TAB, Q8H, Dosing Weight 95, kg, Priority: NOW, Start date: 02/06/16 8:25:00 CDT, Stop date: 03/07/16 8:00:00 CDTNotes: (Same as: Lopressor) No Longer Active 02/06/2016 [facility] Merrem 1,000 mg, Route: IVPB, Drug form: PDR/INJ, ABXQ6H, Dosing Weight 95, kg, CrCl >50, Extended infusion, infuse over 3 hours, Start date: 02/05/16 18:00:00 CDT, Duration: 30 day, Stop date: 03/06/16 12:00:00 CDT Inactive 02/05/2016 [facility] Gentamicin trough due Gentamicin trough due, -, Drug form: MISC, Route: MISC, ONCE, 02/05/16 15:30:00 CDT, Stop date: 02/05/16 15:30:00 CDT Inactive 02/05/2016 [facility] potassium phosphate + Sodium Chloride 0.9% IV 250 mL 30 mmol, 10 mL, Route: IVPB, ONCE, Dosing Weight 95, kg, Start date: 02/05/16 7:51:00 CDT, Stop date: 02/05/16 7:51:00 CDTNotes: (Same as: K Phosphate.) 1 mMol phoshate has 1.47 mEq potassium Infuse over 4 hours Inactive 02/05/2016 [facility] meropenem + Sodium Chloride 0.9% IV 100 mL 500 mg, Route: IVPB, ABXQ6H, Start date: 02/05/16 1:00:00 CDT, Duration: 30 day, Stop date: 03/05/16 19:00:00 CDTNotes: Same as Merrem MEDICATION WASTE Product Size: 500 mg Product Wasted: ___ mg No Longer Active 02/05/2016 [facility] Zofran 4 mg, 2 mL, Route: IV, Drug form: INJ, Q4H, Dosing Weight 95, kg, PRN Nausea, Start date: 02/04/16 21:54:00 CDT, Duration: 30 day, Stop date: 03/05/16 21:53:00 CDTNotes: (Same as: Zofran) MEDICATION WASTE Product Size: 4 mg Product Wasted: ___ mg No Longer Active 02/05/2016 [facility] metoprolol tartrate 25 mg, 1 tab, Route: PO, Drug form: TAB, Q12H, Dosing Weight 95, kg, Start date: 02/04/16 21:00:00 CDT, Duration: 30 day, Stop date: 03/05/16 9:00:00 CDTNotes: (Same as: Lopressor) No Longer Active 02/05/2016 [facility] Calcium Gluconate 2 gm, 100 mL, Route: IVPB, Drug form: INJ, PRN, Dosing Weight 95, kg, PRN Abnormal Lab Result, For NON-ICU Patients Only., Start date: 02/04/16 18:06:00 CDT, Duration: 30 day, Stop date: 03/05/16 18:05:00 CDTNotes: WASTE: F/P - Sink; E - Municipal Trash Bin No Longer Active 02/04/2016 [facility] potassium chloride 10 mEq, 100 mL, Route: IVPB, Drug form: INJ, PRN, Dosing Weight 95, kg, PRN Abnormal Lab Result, For NON-ICU Patients Only, Start date: 02/04/16 18:06:00 CDT, Duration: 30 day, Stop date: 03/05/16 18:05:00 CDTNotes: Infuse at a rate of 10 mEq/hr. (Same as: KCL) No Longer Active 02/04/2016 [facility] potassium phosphate + Sodium Chloride 0.9% IV 250 mL 15 mmol, 5 mL, Route: IVPB, PRN, Dosing Weight 95, kg, PRN Abnormal Lab Result, For NON-ICU Patients Only., Start date: 02/04/16 18:06:00 CDT, Duration: 30 day, Stop date: 03/05/16 18:05:00 CDTNotes: (Same as: K Phosphate.) 1 mMol phoshate has 1.47 mEq potassium Infuse over 4 hours No Longer Active 02/04/2016 [facility] sodium phosphate + Sodium Chloride 0.9% IV 250 mL 30 mmol, 10 mL, Route: IVPB, PRN, Dosing Weight 95, kg, PRN Abnormal Lab Result, For NON-ICU Patients Only., Start date: 02/04/16 18:06:00 CDT, Duration: 30 day, Stop date: 03/05/16 18:05:00 CDT No Longer Active 02/04/2016 [facility] potassium phosphate-sodium phosphate 250 mg-278 mg-164 mg oral powder 2 pkt, Route: PO, Drug Form: PDR/REC, Dosing Weight 95, kg, PRN, PRN Abnormal Lab Result, For NON-ICU Patients Only, Start date: 02/04/16 18:06:00 CDT, Duration: 30 day, Stop date: 03/05/16 18:05:00 CDTNotes: (Same as: Neutra- Phos) Each 1.25 gm pkt has 250mg phosphorous. Mix w/2.5oz water and stir. No Longer Active 02/04/2016 [facility] Magnesium Oxide 800 mg, 2 tab, Route: PO, Drug form: TAB, PRN, Dosing Weight 95, kg, PRN Abnormal Lab Result, For NON-ICU Patients Only., Start date: 02/04/16 18:06:00 CDT, Duration: 30 day, Stop date: 03/05/16 18:0 5:00 CDTNotes: (Same as: Mag-Ox 400) Magnesium oxide [id number] elemental magnesium Dose=____mg magnesium oxide (___mg elemental magnesium) No Longer Active 02/04/2016 [facility] Magnesium Sulfate 2 gm, 50 mL, Route: IVPB, Drug form: INJ, PRN, Dosing Weight 95, kg, PRN Abnormal Lab Result, For NON-ICU Patients Only., Start date: 02/04/16 18:06:00 CDT, Duration: 30 day, Stop date: 03/05/16 18:05:00 CDTNotes: WASTE: F/P - Sink; E - Municipal Trash Bin No Longer Active 02/04/2016 [facility] gentamicin + Sodium Chloride 0.9% IV 100 mL 360 mg, 9 mL, Route: IVPB, [id number], Start date: 02/04/16 16:00:00 CDT, Stop date: 03/03/16 8:00:00 CDTNotes: TIME CRITICAL MEDICATION (Same as Garamycin) No Longer Active 02/04/2016 [facility] Gentamicin Sulfate ([facility]) 1 ea, Route: MISC, Dosing Weight 95, kg, ONCALL, Start date: 02/04/16 15:00:00 CDT, Duration: 1 doses or times, Pharmacy to dose Inactive 02/04/2016 [facility] Labetalol 20 mg, 4 mL, Route: IVP, Drug form: INJ, Q12H, Dosing Weight 95, kg, PRN Hypertension, Start date: 02/04/16 14:49:00 CDT, Duration: 30 day, Stop date: 03/05/16 14:48:00 CDTNotes: (Same as: Normodyne, Tr andate) Push over 2 minutes Give bolus over 2-3 minutes. No Longer Active 02/04/2016 [facility] Doxazosin 1 mg, 0.5 tab, Route: PO, Drug form: TAB, Daily, Dosing Weight 95, kg, Start date: 02/04/16 9:00:00 CDT, Duration: 30 day, Stop date: 03/04/16 9:00:00 CDTNotes: (Same as: Cardura) No Longer Active 02/04/2016 [facility] potassium phosphate + Sodium Chloride 0.9% IV 250 mL 30 mmol, 10 mL, Route: IVPB, ONCE, Dosing Weight 95, kg, Start date: 02/04/16 7:36:00 CDT, Stop date: 02/04/16 7:36:00 CDTNotes: (Same as: K Phosphate.) 1 mMol phoshate has 1.47 mEq potassium Infuse over 4 hours Inactive 02/04/2016 [facility] sodium phosphate 15 mmol, Route: IVPB, PRN, Dosing Weight 95, kg, PRN Abnormal Lab Result, Start date: 02/04/16 7:36:00 CDT, Duration: 30 day, Stop date: 03/05/16 7:35:00 CDT Inactive 02/04/2016 [facility] sodium phosphate + Sodium Chloride 0.9% IV 250 mL 15 mmol, 5 mL, Route: IVPB, PRN, Dosing Weight 95, kg, PRN Abnormal Lab Result, Start date: 02/04/16 7:20:00 CDT, Duration: 30 day, Stop date: 03/05/16 7:19:00 CDT No Longer Active 02/04/2016 [facility] potassium phosphate + Sodium Chloride 0.9% IV 250 mL 30 mmol, 10 mL, Route: IVPB, ONCE, Dosing Weight 95, kg, Priority: NOW, Start date: 02/03/16 11:39:00 CDT, Stop date: 02/03/16 11:39:00 CDTNotes: (Same as: K Phosphate.) 1 mMol phoshate has 1.47 mEq potassium Infuse over 4 hours Inactive 02/03/2016 [facility] tramadol hydrochloride 50 MG Oral Tablet 50 mg=1 tab, PO, Q8H, PRN Pain Score 6-10, 0 Refill(s) Active 02/03/2016 [facility] Metformin 1,000 mg, PO, TID, 0 Refill(s) No Longer Active 02/03/2016 [facility] Amlodipine 10 mg, PO, Daily, 0 Refill(s) Active 02/03/2016 [facility] acyclovir 200 mg oral capsule 200 mg=1 cap, PO, Daily, PRN infection, 0 Refill(s) Active 02/03/2016 [facility] benzonatate 100 mg oral capsule 100 mg=1 cap, PO, TID, 0 Refill(s) Active 02/03/2016 [facility] nitrofurantoin 100 mg, PO, BID, # 14 cap, 0 Refill(s) No Longer Active 02/03/2016 [facility] meclizine 25 mg oral tablet 25 mg=1 tab, PO, TID, PRN Nausea, 0 Refill(s) Active 02/03/2016 [facility] doxazosin 1 mg oral tablet 1 mg=1 tab, PO, Daily, every evening, 0 Refill(s) Active 02/03/2016 [facility] Hydrochlorothiazide 25 mg, PO, Daily, 0 Refill(s) No Longer Active 02/03/2016 [facility] lisinopril 40 mg oral tablet 40 mg=1 tab, PO, Daily, 0 Refill(s) No Longer Active 02/03/2016 [facility] testosterone 200 mg/mL intramuscular solution 200 mg=1 ml, IM, q2wk, 0 Refill(s) No Longer Active 02/03/2016 [facility] Ibuprofen 200 mg, 0 Refill(s) No Longer Active 02/03/2016 [facility] heparin 5,000 unit, 1 mL, Route: SUB-Q, Drug form: INJ, Q12H, Dosing Weight 95, kg, Start date: 02/02/16 21:00:00 CDT, Duration: 30 day, Stop date: 03/03/16 9:00:00 CDTNotes: porcine heparin No Longer Active 02/03/2016 [facility] Zosyn 3.375 gm, Route: IV, ABXQ8H, Dosing Weight 95, kg, Start date: 02/02/16 18:00:00 CDT, Duration: 30 day, Stop date: 03/03/16 10:00:00 CDTNotes: (Same as: Zosyn) Dosing based on Piperacillin component MEDICATION WASTE Product Size: 3375 mg Product Wasted: 0 mg No Longer Active 02/02/2016 [facility] Acetaminophen 325 MG / Hydrocodone Bitartrate 5 MG Oral Tablet [[place] 5/325] 1 tab, Route: PO, Drug Form: TAB, Dosing Weight 95, kg, Q6H, PRN Pain Score 1-3, Start date: 02/02/16 17:50:00 CDT, Duration: 30 day, Stop date: 03/03/16 17:49:00 CDTNotes: (Same as: [place] 325/5) Do not exceed 4gm/day of acetaminophen. No Longer Active 02/02/2016 [facility] Amlodipine 10 mg, 2 tab, Route: PO, Drug form: TAB, Daily, Dosing Weight 95, kg, Start date: 02/02/16 17:00:00 CDT, Duration: 30 day, Stop date: 03/03/16 9:00:00 CDTNotes: (Same as: Norvasc) No Longer Active 02/02/2016 [facility] Saline Flush 0.9% 10 ml, Route: IVP, Drug Form: INJ, Dosing Weight 95, kg, PRN, PRN Line Flush, Start date: 02/02/16 16:28:00 CDT, Duration: 30 day, Stop date: 03/03/16 16:27:00 CDTNotes: (Same as: BD Posiflush) No Longer Active 02/02/2016 [facility] Sodium Chloride 0.0769 MEQ/ML Injectable Solution 1,000 mL, Rate: 75 ml/hr, Infuse over: 13.3 hr, Route: IV, Dosing Weight 95 kg, Total Volume: 1,000, Start date: 02/02/16 16:28:00 CDT, Stop date: 03/03/16 16:27:00 CDT No Longer Active 02/02/2016 [facility] Acetaminophen 650 mg, 2 tab, Route: PO, Drug form: TAB, Q4H, Dosing Weight 95, kg, PRN Pain 1-3/Temp > 100.4 F, Start date: 02/02/16 16:28:00 CDT, Duration: 30 day, Stop date: 03/03/16 16:27:00 CDTNotes: Do not ex ceed 4 gm/day. (Same as: Tylenol) No Longer Active 02/02/2016 [facility] Docusate 100 mg, 1 cap, Route: PO, Drug form: CAP, BID, Dosing Weight 95, kg, PRN Constipation, Start date: 02/02/16 16:28:00 CDT, Duration: 30 day, Stop date: 03/03/16 16:27:00 CDTNotes: (Same as: Colace) (Do Not Crush) No Longer Active 02/02/2016 [facility] Ondansetron 4 mg, 2 mL, Route: IVP, Drug form: INJ, Q6H, Dosing Weight 95, kg, PRN Nausea & Vomiting, Start date: 02/02/16 16:28:00 CDT, Duration: 30 day, Stop date: 03/03/16 16:27:00 CDTNotes: (Same as: Zofran) MEDICATION WASTE Product Size: 4 mg Product Wasted: 0 mg No Longer Active 02/02/2016 [facility] Sodium Chloride 0.154 MEQ/ML Injectable Solution 1,000 mL, 1,000 ml/hr, Infuse Over: 1 hr, Route: IV, 1,000, Drug form: INJ, ONCE, Priority: STAT, Dosing Weight 95 kg, Start date: 02/02/16 14:06:00 CDT, Duration: 1 doses or times, Stop date: 02/02/16 14:06:00 CDT Inactive 02/02/2016 [facility] Tylenol 650 mg, 2 tab, Route: PO, Drug form: TAB, ONCE, Dosing Weight 95, kg, Priority: STAT, Start date: 02/02/16 13:00:00 CDT, Stop date: 02/02/16 13:00:00 CDTNotes: Do not exceed 4 gm/day. (Same as: Tylenol) Inactive 02/02/2016 [facility] Sodium Chloride 0.154 MEQ/ML Injectable Solution 1,000 mL, 1,000 ml/hr, Infuse Over: 1 hr, Route: IV, 1,000, Drug form: INJ, ONCE, Priority: STAT, Dosing Weight 95 kg, Start date: 02/02/16 13:00:00 CDT, Duration: 1 doses or times, Stop date: 02/02/16 13:00:00 CDT Inactive 02/02/2016 [facility] Rocephin 1 gm, Route: IVPB, ONCE, Dosing Weight 95, kg, Priority: STAT, Start date: 02/02/16 12:59:00 CDT, Stop date: 02/02/16 12:59:00 CDTNotes: (Same As: Rocephin). Use with 100 mL NS and infuse over 30 min MEDICATION WASTE Product Size: 1000 mg Product Wasted: 0 mg Inactive 02/02/2016 [facility] Allergies, Adverse Reactions, Alerts Substance Category Reaction Severity Reaction type Status Date Reported Comments Source ciprofloxacin Assertion Drug allergy Active [facility] [place] Immunizations Immunization Date Given Site Status Last Updated Comments Source Results Order Name Results Value Reference Range Date Interpretation Comments Source Chest 2 views DX Chest 2 views DX Exam: Two-view chest x-ray Reason for Exam: - cough; shortness of breath Comparison Exam: X-ray 02/10/2016 Discussion: Cardiomediastinal silhouette is within normal limits. Mild pulmonary vascular congestion. Ill-defined airspace consolidation seen overlying the right lower lung. Correlate for infectious etiology. Mild right-sided pleural effusion. No acute bony abnormalities. Impression: 1. Ill-defined airspace consolidation seen overlying the right lower lung. Correlate for infectious etiology. 12/07/2018 - - Read by: Tim Berry MD Dictated Date/time: 12/07/18 10:27 Electronically Signed by: Tim Berry MD 12/07/18 10:31 FINAL REPORT [facility] Brain wo contrast CT Brain wo contrast CT Brain wo contrast CT 01/09/2018 11:18 AM CDT Clinical Indication: - R09.89 Other specified symptoms and signs involving the circulatory and respiratory systems; dizziness; balance disorder; headache; blurred vision; headache, blurred vision COMPARISON: None TECHNIQUE: Axial CT images of the brain are obtained from the skull base to the vertex. Axial, sagittal, and coronal images are interpreted. Contrast: No IV contrast. DLP: 1355 mGy-cm. This exam was performed according to our departmental dose- optimization protocol, which includes automated exposure control, adjustment of the mA and/or kV according to patient size and/or use of iterative reconstruction technique. FINDINGS: BRAIN: Moderate supratentorial white matter low attenuation foci are seen, most likely due to microvascular disease. Mild cerebral atrophy is seen. SKULL: No skull abnormality is seen. Mild cavernous carotid artery atherosclerotic calcifications. VENTRICLES: Mild ventriculomegaly is present. ORBITS, VISUALIZED PARANASAL SINUSES AND MASTOIDS: Visualized paranasal sinuses are clear. The mastoid air cells are clear. No orbital pathology is seen. IMPRESSION: 1. No acute intracranial abnormality identified. 2. Moderate chronic microvascular ischemia. 3. Mild ventriculomegaly likely compensatory to the cerebral atrophy. 01/09/2018 - - Read by: Ilya Dent MD Dictated Date/time: 01/09/18 11:35 Electronically Signed by: Ilya Dent MD 01/09/18 11:53 FINAL REPORT [facility] Carotid artery Doppler bilat US Carotid artery Doppler bilat US EXAM: US EXTRACRANIAL ARTERIAL DOPPLER DATE: 12/28/2017 9:30 AM CDT INDICATION: - R09.89 Other specified symptoms and signs involving the circulatory and respiratory systems ADDITIONAL INFORMATION: None. COMPARISON: 06/17/2016 TECHNIQUE: Multiplanar grayscale, color Doppler and spectral Doppler ultrasound of the carotid and vertebral arteries. FINDINGS: Mild calcified atherosclerotic plaque involving the bilateral carotid bulbs and proximal left internal carotid artery. There is also intimomedial complex thickening. Antegrade flow is maintained within the bilateral vertebral and external carotid arteries. Right ICA to CCA peak stool velocity ratio measuring 0.7 and left ratio measuring 0.6. IMPRESSION 1. Mild calcified atherosclerotic plaque involving the bilateral carotid bulbs and proximal left internal carotid artery. No hemodynamically significant stenosis. 2. Vertebral arteries: Antegrade flow with normal waveforms bilaterally. According to the 2003 Concensus criteria: <50% stenosis: PSV <125 cm/sec, EDV <40cm/sec, ICA:CCA ratio <2 50-69% stenosis: PSV 125-230cm/sec, EDV 40-100cm/sec, ICA:CCA ratio 2-4 >70% stenosis: PSV >230cm/sec, EDV >100cm/sec, ICA:CCA ratio >4 Reference: Radiology. 2003 [id number]. Carotid Artery Stenosis: Cole-scale and Doppler US diagnosis- Society of Radiologists in Ultrasound Consensus Conference. Eugene EG, Aniket CB, Negro GL, et. al. 12/28/2017 - - Read by: Evelio Ivan MD Dictated Date/time: 12/28/17 11:09 Electronically Signed by: Evelio Ivan MD 12/28/17 11:13 FINAL REPORT [facility] Retroperitoneal Complete US Retroperitoneal Complete US EXAM: US RETROPERITONEAL COMPLETE DATE: 12/28/2017 9:29 AM CDT INDICATION: - N28.9 Disorder of kidney and ureter, unspecified ADDITIONAL INFORMATION: None. COMPARISON: CT from 01/11 TECHNIQUE: Multiplanar grayscale and color Doppler ultrasound images of the kidneys, aorta, IVC and urinary bladder. DISCUSSION: Right kidney Hydronephrosis: None. Size: 8.2 x 4.1 x 4.9 cm Echogenicity: Normal. Parenchymal thickness and contour: Mild cortical atrophy Calculi: None. Cysts: None. Masses: None. Left kidney Hydronephrosis: None. Size: 10.4 x 4.2 x 4.2 cm Echogenicity: Normal. Parenchymal thickness and contour: Mild cortical atrophy Calculi: None. Cysts: None. Masses: None. Abdominal aorta: Normal caliber IVC: Normal. Bladder: Normal. Prostate gland measures 4.4 x 3.7 x 2.5 cm. IMPRESSION: Mild cortical atrophy without any hydronephrosis. 12/28/2017 - - Read by: Evelio Ivan MD Dictated Date/time: 12/28/17 11:00 Electronically Signed by: Evelio Ivan MD 12/28/17 11:08 FINAL REPORT [facility] Spine lumbar 2 or 3 views DX Spine lumbar 2 or 3 views DX EXAM: XR LUMBAR SPINE DATE: 12/26/2017 8:35 AM CDT ORDERING PHYSICIAN: Eladio Saini DO CLINICAL INDICATION: - back pain; TECHNIQUE: AP and lateral views of the lumbar spine COMPARISON: 12/03/[address] FINDINGS: There are 5, nonrib-bearing lumbar vertebral bodies with normal height, shape, and alignment. . The lordosis is straightened. There is diffuse disc space narrowing and spondylosis generally asymmetric to the right. There is multilevel vacuum phenomena. There is multilevel lumbar facet arthropathy. There is suggestion of short lumbar pedicles. Visualized soft tissues are unremarkable. IMPRESSION: 1. Multilevel spondylosis 2. Multilevel facet arthropathy most severe in the lower lumbar spine 3. Suggestion of short lumbar pedicles, which places patient at increased risk for spinal stenosis. 12/26/2017 - - Read by: Terry Choudhury MD Dictated Date/time: 12/27/17 10:32 Electronically Signed by: Terry Choudhury MD 12/27/17 10:34 FINAL REPORT [facility] Elbow 3 views DX Elbow 3 views DX Exam: Left elbow x-ray, 3 views Reason for Exam: - left elbow pain Comparison Exam: None Discussion: No acute bony abnormalities are seen. 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 Bulky calcification is seen in close proximity to the flexor tendon group suggestive of calcific tendinitis. Correlate with clinical exam and history. Impression: 1. No acute bony abnormalities identified. Bulky calcification is seen in close proximity to the flexor tendon group suggestive of calcific tendinitis. Correlate with clinical exam and history. 11/29/2017 - - Read by: Tim Berry MD Dictated Date/time: 11/29/17 09:32 Electronically Signed by: Tim Berry MD 11/29/17 09:35 FINAL REPORT [facility] Knee 1-2 Views unilateral DX Knee 1-2 Views unilateral DX Exam: Right knee x-ray, 2 views Reason for Exam: - right knee pain Comparison Exam: none Discussion: No fractures or dislocations are seen of the right knee. Mild osteoarthritis seen within the medial compartment and the anterior compartment. No intraosseous lesions. No radiopaque foreign bodies. Impression: 1. No acute bony abnormalities seen within the right knee. 11/29/2017 - - Read by: Tim Berry MD Dictated Date/time: 11/29/17 09:31 Electronically Signed by: Tim Berry MD 11/29/17 09:32 FINAL REPORT [facility] ELECTROLYTES AGAP 12.5 meq/L 10.0 - 20.0 11/22/2016 [facility] ELECTROLYTES eGFR 71 mL/min/1.73m2 11/22/2016 Result Comment: The eGFR is calculated using the [...] from the National Kidney Disease Education Program (NKDEP) which additionally recommends that when the eGFR is used in patients with extremes of body mass index for purposes of drug dosing, the eGFR should be multiplied by the estimated BMI. [facility] ELECTROLYTES BUN 16 mg/dL 7 - 22 11/22/2016 [facility] ELECTROLYTES Creatinine Lvl 0.99 mg/dL 0.50 - 1.40 11/22/2016 [facility] ELECTROLYTES Glucose Lvl 120 mg/dL 70 - 99 11/22/2016 [facility] ELECTROLYTES Sodium Lvl 133 meq/L 135 - 145 11/22/2016 [facility] ELECTROLYTES Potassium Lvl 3.5 meq/L 3.5 - 5.1 11/22/2016 [facility] ELECTROLYTES Chloride Lvl 98 meq/L 95 - 109 11/22/2016 [facility] ELECTROLYTES CO2 26 meq/L 24 - 32 11/22/2016 [facility] ELECTROLYTES Calcium Lvl 8.7 mg/dL 8.5 - 10.5 11/22/2016 [facility] HEMATOLOGY Segs-Bands # 3.2 K/CMM 1.5 - 8.1 11/22/2016 [facility] HEMATOLOGY Monocytes # 0.4 K/CMM 0.0 - 0.8 11/22/2016 [facility] Lymphocytes # 1.8 K/CMM 1.0 - 5.5 11/22/2016 [facility] Plt Morph Normal (11/22/16 3:45 AM) 11/22/2016 [facility] RBC Morph Normal (11/22/16 3:45 AM) 11/22/2016 [facility] Segs 59.2 % 45.0 - 75.0 11/22/2016 [facility] Lymphocytes 32.0 % 20.0 - 40.0 11/22/2016 [facility] Eosinophils 0.3 % 0.0 - 4.0 11/22/2016 [facility] Monocytes 8.1 % 2.0 - 12.0 11/22/2016 [facility] Basophils 0.4 % 0.0 - 1.0 11/22/2016 [facility] MCHC 34.4 g/dL 32.0 - 36.0 11/22/2016 [facility] MCH 28.0 pg 27.0 - 31.0 11/22/2016 [facility] RDW 15.2 % 11.5 - 14.5 11/22/2016 [facility] Platelet 215 K/CMM 133 - 450 11/22/2016 [facility] MPV 8.4 fL 7.4 - 10.4 11/22/2016 [facility] Hct 35.9 % 42.0 - 54.0 11/22/2016 [facility] MCV 81.3 fL 80.0 - 94.0 11/22/2016 [facility] Hgb 12.3 g/dL 14.0 - 18.0 11/22/2016 [facility] RBC 4.41 M/CMM 4.70 - 6.10 11/22/2016 [facility] WBC 5.5 K/CMM 3.7 - 10.4 11/22/2016 [facility] CHEM PANEL eGFR 76 mL/min/1.73m2 11/21/2016 Result Comment: The eGFR is calculated using the [...] from the National Kidney Disease Education Program (NKDEP) which additionally recommends that when the eGFR is used in patients with extremes of body mass index for purposes of drug dosing, the eGFR should be multiplied by the estimated BMI. [facility] CHEM PANEL CO2 27 meq/L 24 - 32 11/21/2016 [facility] CHEM PANEL Chloride Lvl 98 meq/L 95 - 109 11/21/2016 [facility] CHEM PANEL AGAP 12.7 meq/L 10.0 - 20.0 11/21/2016 [facility] CHEM PANEL Calcium Lvl 8.5 mg/dL 8.5 - 10.5 11/21/2016 [facility] CHEM PANEL Glucose Lvl 126 mg/dL 70 - 99 11/21/2016 [facility] CHEM PANEL BUN 13 mg/dL 7 - 22 11/21/2016 [facility] CHEM PANEL Creatinine Lvl 0.94 mg/dL 0.50 - 1.40 11/21/2016 [facility] CHEM PANEL Potassium Lvl 3.7 meq/L 3.5 - 5.1 11/21/2016 [facility] CHEM PANEL Sodium Lvl 134 meq/L 135 - 145 11/21/2016 [facility] Hgb 12.8 g/dL 14.0 - 18.0 11/21/2016 [facility] Hct 37.4 % 42.0 - 54.0 11/21/2016 [facility] MCV 82.2 fL 80.0 - 94.0 11/21/2016 [facility] MCH 28.1 pg 27.0 - 31.0 11/21/2016 [facility] RBC 4.55 M/CMM 4.70 - 6.10 11/21/2016 [facility] WBC 3.5 K/CMM 3.7 - 10.4 11/21/2016 [facility] Platelet 205 K/CMM 133 - 450 11/21/2016 [facility] RDW 15.5 % 11.5 - 14.5 11/21/2016 [facility] MPV 8.7 fL 7.4 - 10.4 11/21/2016 [facility] MCHC 34.1 g/dL 32.0 - 36.0 11/21/2016 [facility] Segs-Bands # 2.0 K/CMM 1.5 - 8.1 11/21/2016 [facility] HEMATOLOGY Monocytes 9.8 % 2.0 - 12.0 11/21/2016 [facility] HEMATOLOGY Eosinophils 0.2 % 0.0 - 4.0 11/21/2016 [facility] HEMATOLOGY Basophils 0.9 % 0.0 - 1.0 11/21/2016 [facility] HEMATOLOGY Lymphocytes 32.7 % 20.0 - 40.0 11/21/2016 [facility] HEMATOLOGY Segs 56.4 % 45.0 - 75.0 11/21/2016 [facility] HEMATOLOGY Monocytes # 0.3 K/CMM 0.0 - 0.8 11/21/2016 [facility] HEMATOLOGY Lymphocytes # 1.1 K/CMM 1.0 - 5.5 11/21/2016 [facility] ELECTROLYTES CO2 28 meq/L 24 - 32 11/20/2016 [facility] ELECTROLYTES Calcium Lvl 8.9 mg/dL 8.5 - 10.5 11/20/2016 [facility] ELECTROLYTES AGAP 12.8 meq/L 10.0 - 20.0 11/20/2016 [facility] eGFR 56 mL/min/1.73m2 11/20/2016 Result Comment: The eGFR is calculated using the [...] from the National Kidney Disease Education Program (NKDEP) which additionally recommends that when the eGFR is used in patients with extremes of body mass index for purposes of drug dosing, the eGFR should be multiplied by the estimated BMI. [facility] ELECTROLYTES Chloride Lvl 96 meq/L 95 - 109 11/20/2016 [facility] ELECTROLYTES Sodium Lvl 133 meq/L 135 - 145 11/20/2016 [facility] ELECTROLYTES Potassium Lvl 3.8 meq/L 3.5 - 5.1 11/20/2016 [facility] ELECTROLYTES Glucose Lvl 198 mg/dL 70 - 99 11/20/2016 [facility] ELECTROLYTES BUN 14 mg/dL 7 - 22 11/20/2016 [facility] ELECTROLYTES Creatinine Lvl 1.20 mg/dL 0.50 - 1.40 11/20/2016 [facility] CHEM PANEL Phosphorus 2.4 mg/dL 2.5 - 4.5 11/20/2016 [facility] CHEM PANEL Phosphorus 2.6 mg/dL 2.5 - 4.5 11/20/2016 [facility] CHEM PANEL Magnesium Lvl 2.1 mg/dL 1.8 - 2.4 11/20/2016 [facility] CARDIAC ENZYMES Total CK 418 unit/L 12 - 191 11/19/2016 [facility] CARDIAC ENZYMES Troponin-I null 0.00 - 0.40 11/19/2016 [facility] CARDIAC ENZYMES CK MB Index 0.8 0.0 - 2.5 11/19/2016 [facility] CARDIAC ENZYMES CK MB 3.3 ng/mL 0.5 - 3.6 11/19/2016 [facility] CHEM PANEL Phosphorus 2.9 mg/dL 2.5 - 4.5 11/19/2016 [facility] CHEM PANEL Magnesium Lvl 2.2 mg/dL 1.8 - 2.4 11/19/2016 [facility] URINE AND STOOL UA Color Ltyellow 11/19/2016 [facility] URINE AND STOOL UA Urobilinogen <=1.0 mg/dL 0.1 - 1.0 11/19/2016 [facility] URINE AND STOOL UA Sq Epi None Seen 11/19/2016 [facility] URINE AND STOOL UA Nitrite Negative (11/19/16 1:27 PM) Negative 11/19/2016 [facility] URINE AND STOOL UA Leuk Est Negative (11/19/16 1:27 PM) Negative 11/19/2016 [facility] URINE AND STOOL UA Ketones Negative mg/dL Negative mg/dL 11/19/2016 [facility] URINE AND STOOL UA Bili Negative *NA* (11/19/16 1:27 PM) Negative 11/19/2016 [facility] URINE AND STOOL UA Blood Negative (11/19/16 1:27 PM) Negative 11/19/2016 [facility] URINE AND STOOL UA pH 6.0 5.0 - 8.0 11/19/2016 [facility] URINE AND STOOL UA Protein Negative mg/dL Negative mg/dL 11/19/2016 [facility] URINE AND STOOL UA Glucose Negative mg/dL Negative mg/dL 11/19/2016 [facility] URINE AND STOOL UA Turbidity Clear (11/19/16 1:27 PM) Clear 11/19/2016 [facility] URINE AND STOOL UA Spec Grav 1.011 <=1.030 11/19/2016 [facility] URINE AND STOOL UA WBC 1 /HPF 0 - 5 11/19/2016 [facility] URINE AND STOOL UA RBC null 0 - 2 11/19/2016 [facility] HEMATOLOGY Monocytes # 0.3 K/CMM 0.0 - 0.8 11/19/2016 [facility] HEMATOLOGY Lymphocytes # 1.1 K/CMM 1.0 - 5.5 11/19/2016 [facility] HEMATOLOGY Segs-Bands # 3.4 K/CMM 1.5 - 8.1 11/19/2016 [facility] HEMATOLOGY Eosinophils 0.1 % 0.0 - 4.0 11/19/2016 [facility] Monocytes 5.3 % 2.0 - 12.0 11/19/2016 [facility] Lymphocytes 23.7 % 20.0 - 40.0 11/19/2016 [facility] Basophils 0.8 % 0.0 - 1.0 11/19/2016 [facility] Segs 70.1 % 45.0 - 75.0 11/19/2016 [facility] Plt Morph Normal (11/19/16 1:20 PM) 11/19/2016 [facility] RBC Morph Normal (11/19/16 1:20 PM) 11/19/2016 [facility] MCV 81.1 fL 80.0 - 94.0 11/19/2016 [facility] Hgb 13.1 g/dL 14.0 - 18.0 11/19/2016 [facility] RDW 15.1 % 11.5 - 14.5 11/19/2016 [facility] MCHC 34.6 g/dL 32.0 - 36.0 11/19/2016 [facility] MCH 28.1 pg 27.0 - 31.0 11/19/2016 [facility] [facility] Platelet 201 K/CMM 133 - 450 11/19/2016 Formerly named [facility] Hct 37.8 % 42.0 - 54.0 11/19/2016 Formerly named [facility] MPV 8.8 fL 7.4 - 10.4 11/19/2016 Formerly named [facility] WBC 4.8 K/CMM 3.7 - 10.4 11/19/2016 Formerly named [facility] RBC 4.66 M/CMM 4.70 - 6.10 11/19/2016 [facility] CARDIAC ENZYMES Total CK 405 unit/L 12 - 191 11/19/2016 [facility] CARDIAC ENZYMES CK MB 4.0 ng/mL 0.5 - 3.6 11/19/2016 [facility] CARDIAC ENZYMES CK MB Index 1.0 0.0 - 2.5 11/19/2016 [facility] CARDIAC ENZYMES Troponin-I null 0.00 - 0.40 11/19/2016 [facility] CARDIAC ENZYMES Total CK 402 unit/L 12 - 191 11/19/2016 [facility] CHEM PANEL Bili Total 0.7 mg/dL 0.2 - 1.3 11/19/2016 [facility] CHEM PANEL Globulin 3.5 g/dL 2.7 - 4.2 11/19/2016 [facility] CHEM PANEL Albumin Lvl 3.7 g/dL 3.5 - 5.0 11/19/2016 [facility] CHEM PANEL A/G Ratio 1.1 0.7 - 1.6 11/19/2016 [facility] CHEM PANEL Total Protein 7.2 g/dL 6.4 - 8.4 11/19/2016 [facility] CHEM PANEL AST 33 unit/L 0 - 37 11/19/2016 [facility] CHEM PANEL Alk Phos 114 unit/L 39 - 136 11/19/2016 [facility] CHEM PANEL ALT 25 unit/L 0 - 65 11/19/2016 [facility] CHEM PANEL B/C Ratio 12 6 - 25 11/19/2016 [facility] CHEM PANEL Magnesium Lvl 2.0 mg/dL 1.8 - 2.4 11/19/2016 [facility] HEMATOLOGY PTT 32.0 s 22.9 - 35.8 11/19/2016 [facility] HEMATOLOGY PT 13.8 s 12.0 - 14.7 11/19/2016 [facility] HEMATOLOGY INR 1.04 0.85 - 1.17 11/19/2016 [facility] Spine cervical 2 or 3 view DX Spine cervical 2 or 3 view DX Patient Name: ALEX RAZA : 1935; Age: 81 years Male MR: [id number] Study: Spine cervical 2 or 3 view DX 11/19/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 The cervical vertebral bodies are of normal height and alignment. No compression fracture. No subluxation. Moderate disc space narrowing and small posterior osteophytes at C3-C4, C4-C5, and C6-C7. No prevertebral soft tissue thickening. The visualized lung apices are clear. IMPRESSION: No acute cervical spine abnormalities. Moderate degenerative change of the cervical spine. SL: [id number] 11/19/2016 - - Read by: Flower Cuenca MD Dictated Date/time: 11/19/16 17:35 Electronically Signed by: Flower Cuenca MD 11/19/16 17:36 FINAL REPORT [facility] Carotid artery Doppler bilat US Carotid artery Doppler bilat US Exam: Bilateral Carotid Doppler Ultrasound Reason for Exam: I65.21 Occlusion and stenosis of right carotid artery Comparison Exam: None Discussion: Real time grayscale, color Doppler imaging, and spectral waveform analysis was performed of the bilateral extracranial carotid arterial system. Right: Mild amount of calcified plaque seen within the distal CCA and proximal right internal carotid artery. The waveforms are within normal limits. The right vertebral artery is antegrade in flow. The highest velocity within the right ICA system is 35 cm/sec. The ICA/CCA ratio is 0.43. Left: Mild amount of calcified plaque seen within the distal CCA and proximal left internal carotid artery. The waveforms are within normal limits. The left vertebral artery is antegrade in flow. The highest velocity within the left ICA system is 35 cm/sec. The ICA/CCA ratio is 0.46. Impression: 1. Mild amount of calcified plaque seen within the bilateral distal CCAs and proximal left ICAs without evidence for significant stenoses. (Consensus Panel Cole Scale and Doppler ultrasound criteria). 2. Vertebral arteries are antegrade in flow. 06/17/2016 - - Read by: Tim Berry MD Dictated Date/time: 06/17/16 15:31 Electronically Signed by: Tim Berry MD 06/17/16 15:36 FINAL REPORT [facility] Hgb A1C 6.3 % <=5.6 % 02/12/2016 [facility] CHEM PANEL eGFR 67 mL/min/1.73m2 02/12/2016 Result Comment: The eGFR is calculated using the [...] from the National Kidney Disease Education Program (NKDEP) which additionally recommends that when the eGFR is used in patients with extremes of body mass index for purposes of drug dosing, the eGFR should be multiplied by the estimated BMI. [facility] CHEM PANEL Chloride Lvl 102 meq/L 95 - 109 02/12/2016 [facility] CHEM PANEL Calcium Lvl 9.1 mg/dL 8.5 - 10.5 02/12/2016 [facility] CHEM PANEL CO2 26 meq/L 24 - 32 02/12/2016 [facility] CHEM PANEL BUN 22 mg/dL 7 - 22 02/12/2016 [facility] CHEM PANEL Potassium Lvl 3.8 meq/L 3.5 - 5.1 02/12/2016 [facility] CHEM PANEL Sodium Lvl 136 meq/L 135 - 145 02/12/2016 [facility] CHEM PANEL Creatinine Lvl 1.05 mg/dL 0.50 - 1.40 02/12/2016 [facility] CHEM PANEL Glucose Lvl 120 mg/dL 70 - 99 02/12/2016 [facility] CHEM PANEL AGAP 11.8 meq/L 10.0 - 20.0 02/12/2016 [facility] CHEM PANEL Phosphorus 2.7 mg/dL 2.5 - 4.5 02/12/2016 [facility] CHEM PANEL Magnesium Lvl 2.3 mg/dL 1.8 - 2.4 02/12/2016 [facility] HEMATOLOGY Segs-Bands # 3.9 K/CMM 1.5 - 8.1 02/12/2016 [facility] HEMATOLOGY Basophils 0.5 % 0.0 - 1.0 02/12/2016 [facility] HEMATOLOGY Eosinophils 0.1 % 0.0 - 4.0 02/12/2016 [facility] HEMATOLOGY Segs 69.2 % 45.0 - 75.0 02/12/2016 [facility] HEMATOLOGY Lymphocytes # 1.2 K/CMM 1.0 - 5.5 02/12/2016 [facility] HEMATOLOGY Monocytes # 0.5 K/CMM 0.0 - 0.8 02/12/2016 [facility] HEMATOLOGY Monocytes 9.0 % 2.0 - 12.0 02/12/2016 [facility] HEMATOLOGY Lymphocytes 21.2 % 20.0 - 40.0 02/12/2016 [facility] HEMATOLOGY WBC 5.6 K/CMM 3.7 - 10.4 02/12/2016 [facility] HEMATOLOGY MPV 9.7 fL 7.4 - 10.4 02/12/2016 [facility] HEMATOLOGY RDW 16.2 % 11.5 - 14.5 02/12/2016 [facility] HEMATOLOGY Platelet 178 K/CMM 133 - 450 02/12/2016 [facility] MCH 26.5 pg 27.0 - 31.0 02/12/2016 [facility] MCHC 32.8 g/dL 32.0 - 36.0 02/12/2016 [facility] HEMATOLOGY MCV 80.7 fL 80.0 - 94.0 02/12/2016 [facility] HEMATOLOGY Hgb 11.9 g/dL 14.0 - 18.0 02/12/2016 [facility] Hct 36.1 % 42.0 - 54.0 02/12/2016 [facility] RBC 4.48 M/CMM 4.70 - 6.10 02/12/2016 [facility] CHEM PANEL Phosphorus 2.5 mg/dL 2.5 - 4.5 02/11/2016 [facility] CHEM PANEL Globulin 4.9 g/dL 2.0 - 4.0 02/11/2016 [facility] CHEM PANEL Albumin Lvl 3.2 g/dL 3.5 - 5.0 02/11/2016 [facility] CHEM PANEL Total Protein 8.1 g/dL 6.4 - 8.4 02/11/2016 [facility] CHEM PANEL A/G Ratio 0.7 0.7 - 1.6 02/11/2016 [facility] CHEM PANEL ALT 42 unit/L 0 - 65 02/11/2016 [facility] CHEM PANEL Alk Phos 106 unit/L 39 - 136 02/11/2016 [facility] CHEM PANEL AST 49 unit/L 0 - 37 02/11/2016 [facility] CHEM PANEL Bili Indirect 0.5 mg/dL 0.0 - 1.0 02/11/2016 [facility] CHEM PANEL Bili Total 0.6 mg/dL 0.2 - 1.3 02/11/2016 [facility] CHEM PANEL Bili Direct 0.1 mg/dL 0.0 - 0.3 02/11/2016 [facility] CHEM PANEL Magnesium Lvl 2.4 mg/dL 1.8 - 2.4 02/11/2016 [facility] CHEM PANEL eGFR 60 mL/min/1.73m2 02/11/2016 Result Comment: The eGFR is calculated using the [...] from the National Kidney Disease Education Program (NKDEP) which additionally recommends that when the eGFR is used in patients with extremes of body mass index for purposes of drug dosing, the eGFR should be multiplied by the estimated BMI. [facility] CHEM PANEL Calcium Lvl 9.6 mg/dL 8.5 - 10.5 02/11/2016 [facility] CHEM PANEL CO2 24 meq/L 24 - 32 02/11/2016 [facility] CHEM PANEL AGAP 11.5 meq/L 10.0 - 20.0 02/11/2016 [facility] CHEM PANEL Creatinine Lvl 1.14 mg/dL 0.50 - 1.40 02/11/2016 [facility] CHEM PANEL BUN 21 mg/dL 7 - 22 02/11/2016 [facility] CHEM PANEL Glucose Lvl 124 mg/dL 70 - 99 02/11/2016 [facility] CHEM PANEL Potassium Lvl 4.5 meq/L 3.5 - 5.1 02/11/2016 [facility] CHEM PANEL Chloride Lvl 101 meq/L 95 - 109 02/11/2016 [facility] CHEM PANEL Sodium Lvl 132 meq/L 135 - 145 02/11/2016 [facility] HEMATOLOGY Plt Morph Normal (02/11/16 10:54 AM) 02/11/2016 [facility] HEMATOLOGY Segs 69.3 % 45.0 - 75.0 02/11/2016 [facility] RBC Morph Normal (02/11/16 10:54 AM) 02/11/2016 [facility] Large Plt Moderate *ABN* (02/11/16 10:54 AM) None Seen 02/11/2016 [facility] Monocytes # 0.5 K/CMM 0.0 - 0.8 02/11/2016 [facility] Lymphocytes # 1.4 K/CMM 1.0 - 5.5 02/11/2016 [facility] Segs-Bands # 4.4 K/CMM 1.5 - 8.1 02/11/2016 [facility] Eosinophils 0.3 % 0.0 - 4.0 02/11/2016 [facility] Monocytes 7.1 % 2.0 - 12.0 02/11/2016 [facility] Lymphocytes 22.8 % 20.0 - 40.0 02/11/2016 [facility] Basophils 0.5 % 0.0 - 1.0 02/11/2016 [facility] MCH 27.3 pg 27.0 - 31.0 02/11/2016 [facility] Hct 40.7 % 42.0 - 54.0 02/11/2016 [facility] Hgb 13.8 g/dL 14.0 - 18.0 02/11/2016 [facility] MPV 10.1 fL 7.4 - 10.4 02/11/2016 [facility] Platelet 160 K/CMM 133 - 450 02/11/2016 [facility] RDW 16.5 % 11.5 - 14.5 02/11/2016 [facility] MCHC 33.8 g/dL 32.0 - 36.0 02/11/2016 [facility] MCV 80.6 fL 80.0 - 94.0 02/11/2016 [facility] WBC 6.4 K/CMM 3.7 - 10.4 02/11/2016 [facility] RBC 5.05 M/CMM 4.70 - 6.10 02/11/2016 [facility] IMMUNOLOGY C-REACTIVE PROTEIN 17.0 mg/L <=2.9 mg/L 02/11/2016 [facility] Chest 1view DX Chest 1view DX Clinical Indication: Central Line Placement Comparison: None FINDINGS: AP chest radiograph was obtained. MEDIASTINUM: The cardiac silhouette is prominent. The aorta is unremarkable. There is a right upper extremity PICC line with distal tip overlying the right atrium. LUNGS: Lung volumes are maintained. There are no focal infiltrates or effusions. There are no pneumothoraces noted. BONES: There is an anchor within the right humeral head. IMPRESSION: 1. Prominence of the cardiac silhouette. Right upper extremity PICC line with the distal tip overlying the right atrium. SL: [id number] 02/10/2016 - - Read by: Tayo Gonzalez MD Dictated Date/time: 02/10/16 16:36 Electronically Signed by: Tayo Gonzalez MD 02/10/16 16:41 FINAL REPORT [facility] CHEM PANEL Magnesium Lvl 2.3 mg/dL 1.8 - 2.4 02/09/2016 [facility] HEMATOLOGY INR 0.96 0.85 - 1.17 02/08/2016 [facility] HEMATOLOGY PT 13.1 s 12.0 - 14.7 02/08/2016 [facility] ENDOCRINOLOGY Testosterone Tot 136 ng/dL 250 - 1100 02/08/2016 Result Comment: Males: Men with clinically significant hypogonadal symptoms and testosterone values repeatedly in the range of the 200-300 ng/dL or less, may benefit from testosterone treatment after adequate risk and benefits counseling. [facility] Testosterone Free 16.1 pg/mL 30.0 - 135.0 02/08/2016 Result Comment: Test Performed at: [facility], [address] [place] [id number] Harish Lafleur MD, FCAP [facility] ELECTROLYTES AGAP 9.7 meq/L 10.0 - 20.0 02/08/2016 [facility] ELECTROLYTES eGFR 81 mL/min/1.73m2 02/08/2016 Result Comment: The eGFR is calculated using the [...] from the National Kidney Disease Education Program (NKDEP) which additionally recommends that when the eGFR is used in patients with extremes of body mass index for purposes of drug dosing, the eGFR should be multiplied by the estimated BMI. [facility] ELECTROLYTES Sodium Lvl 137 meq/L 135 - 145 02/08/2016 [facility] ELECTROLYTES Chloride Lvl 103 meq/L 95 - 109 02/08/2016 [facility] ELECTROLYTES Potassium Lvl 3.7 meq/L 3.5 - 5.1 02/08/2016 [facility] ELECTROLYTES CO2 28 meq/L 24 - 32 02/08/2016 [facility] ELECTROLYTES Calcium Lvl 9.1 mg/dL 8.5 - 10.5 02/08/2016 [facility] ELECTROLYTES Creatinine Lvl 0.88 mg/dL 0.50 - 1.40 02/08/2016 [facility] ELECTROLYTES Glucose Lvl 126 mg/dL 70 - 99 02/08/2016 [facility] ELECTROLYTES BUN 13 mg/dL 7 - 22 02/08/2016 [facility] HEMATOLOGY Segs 66.5 % 45.0 - 75.0 02/08/2016 [facility] RBC Morph Normal (02/08/16 8:35 AM) 02/08/2016 [facility] HEMATOLOGY Large Plt Moderate *ABN* (02/08/16 8:35 AM) None Seen 02/08/2016 [facility] HEMATOLOGY Monocytes # 0.5 K/CMM 0.0 - 0.8 02/08/2016 [facility] HEMATOLOGY Monocytes 12.5 % 2.0 - 12.0 02/08/2016 [facility] HEMATOLOGY Lymphocytes 20.4 % 20.0 - 40.0 02/08/2016 [facility] HEMATOLOGY Lymphocytes # 0.8 K/CMM 1.0 - 5.5 02/08/2016 [facility] HEMATOLOGY Segs-Bands # 2.6 K/CMM 1.5 - 8.1 02/08/2016 [facility] HEMATOLOGY Basophils 0.5 % 0.0 - 1.0 02/08/2016 [facility] HEMATOLOGY Eosinophils 0.1 % 0.0 - 4.0 02/08/2016 [facility] HEMATOLOGY RDW 16.4 % 11.5 - 14.5 02/08/2016 [facility] MCHC 33.2 g/dL 32.0 - 36.0 02/08/2016 [facility] MCH 26.9 pg 27.0 - 31.0 02/08/2016 [facility] MCV 80.9 fL 80.0 - 94.0 02/08/2016 [facility] Platelet 165 K/CMM 133 - 450 02/08/2016 [facility] MPV 9.1 fL 7.4 - 10.4 02/08/2016 [facility] HEMATOLOGY Hct 37.3 % 42.0 - 54.0 02/08/2016 [facility] Hgb 12.4 g/dL 14.0 - 18.0 02/08/2016 [facility] RBC 4.61 M/CMM 4.70 - 6.10 02/08/2016 [facility] HEMATOLOGY WBC 3.9 K/CMM 3.7 - 10.4 02/08/2016 [facility] CHEM PANEL Procalcitonin Lvl 0.19 ng/mL 0.00 - 0.10 02/08/2016 [facility] TOXICOLOGY Gent Lvl 0.7 ug/ml 02/08/2016 [facility] CHEM PANEL Phosphorus 2.6 mg/dL 2.5 - 4.5 02/07/2016 [facility] Pelvis w/wo contrast MRI Pelvis w/wo contrast MRI EXAM: MRI of the pelvis without and with 15 cc of Omniscan IV contrast INDICATION: Fever, pelvic infection COMPARISON: CT abdomen and pelvis without IV contrast performed on 02/02/2016 FINDINGS: Visualized portions of the small bowel and colon are nondilated. Abdominal aorta is normal in caliber. No threshold enlarged inguinal or lower abdominal lymph nodes identified. Spring catheter is present. The bladder is collapsed. Prostate demonstrates heterogenous T2 hyperintense signal. Prostate measures up to 5.9 x 4.5 x 5.8 cm. Multiple ill-defined rim-enhancing T2 hyperintense fluid collections are noted in the prostate, the largest on series 10 image 14 measures 1 x 0.8 cm. Moderate amount of fat stranding and inflammation is present in the pelvis, similar around the prostate. Fluid collects in the presacral space. No loculated fluid collection identified. There is increased T2 signal and mild thickening of the rectum posterior to the inflamed prostate. This could represent reactive proctitis. Marrow signal is age appropriate. IMPRESSION: Enlargement of the prostate with periprosthetic inflammation and fat stranding is suggestive of acute prostatitis. Multiple small (less than 1 cm) rim- enhancing fluid collections in the prostate may represent small abscesses. Increased edema and thickening of the rectal wall posterior to the 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 SL: [id number] 02/06/2016 - - Read by: Chet Pardo MD Dictated Date/time: 02/06/16 12:38 Electronically Signed by: Chet Pardo MD 02/06/16 12:54 FINAL REPORT [facility] CARDIAC ENZYMES CK MB 1.3 ng/mL 0.5 - 3.6 02/06/2016 [facility] CARDIAC ENZYMES CK MB Index 0.4 0.0 - 2.5 02/06/2016 [facility] CARDIAC ENZYMES Troponin-I 0.02 ng/mL 0.00 - 0.40 02/06/2016 [facility] CARDIAC ENZYMES Total CK 346 unit/L 12 - 191 02/06/2016 [facility] CARDIAC ENZYMES CK MB Index 0.3 0.0 - 2.5 02/05/2016 [facility] CARDIAC ENZYMES CK MB 1.3 ng/mL 0.5 - 3.6 02/05/2016 [facility] CARDIAC ENZYMES Troponin-I null 0.00 - 0.40 02/05/2016 [facility] CARDIAC ENZYMES Total CK 384 unit/L 12 - 191 02/05/2016 [facility] TOXICOLOGY Gent Tr 0.3 ug/ml 02/05/2016 [facility] TOXICOLOGY Gent Tr TND see MAR 02/05/2016 [facility] CARDIAC ENZYMES BNP 213 pg/mL <=100 pg/mL 02/05/2016 [facility] CHEM PANEL Procalcitonin Lvl 0.83 ng/mL 0.00 - 0.10 02/05/2016 [facility] CHEM PANEL B/C Ratio 11 6 - 25 02/03/2016 [facility] CHEM PANEL A/G Ratio 0.7 0.7 - 1.6 02/03/2016 [facility] CHEM PANEL Globulin 4.0 g/dL 2.0 - 4.0 02/03/2016 [facility] CHEM PANEL AST 28 unit/L 0 - 37 02/03/2016 [facility] CHEM PANEL Bili Total 1.1 mg/dL 0.2 - 1.3 02/03/2016 [facility] CHEM PANEL Alk Phos 112 unit/L 39 - 136 02/03/2016 [facility] CHEM PANEL ALT 15 unit/L 0 - 65 02/03/2016 [facility] CHEM PANEL Albumin Lvl 2.9 g/dL 3.5 - 5.0 02/03/2016 [facility] CHEM PANEL Total Protein 6.9 g/dL 6.4 - 8.4 02/03/2016 [facility] HEMATOLOGY Basophils # 0.2 K/CMM 0.0 - 0.2 02/03/2016 [facility] HEMATOLOGY PTT 36.9 s 22.9 - 35.8 02/03/2016 [facility] SPECIAL CHEMISTRY Free PSA/PSA 43.6 % >=25.0 % 02/03/2016 [facility] SPECIAL CHEMISTRY PSA Free 19.16 ng/mL 02/03/2016 [facility] SPECIAL CHEMISTRY PSA 43.9 ng/mL 0.0 - 4.0 02/03/2016 [facility] CHEM PANEL Lactic Acid Lvl 2.0 mMol/L 0.5 - 2.2 02/02/2016 [facility] CHEM PANEL Procalcitonin Lvl 0.40 ng/mL 0.00 - 0.10 02/02/2016 [facility] URINE AND STOOL UA Leuk Est Trace *ABN* (02/02/16 2:06 PM) Negative 02/02/2016 [facility] URINE AND STOOL UA pH 6.5 5.0 - 8.0 02/02/2016 [facility] URINE AND STOOL UA Protein 100 mg/dL Negative mg/dL 02/02/2016 [facility] URINE AND STOOL UA Bili Small *ABN* (02/02/16 2:06 PM) Negative 02/02/2016 [facility] URINE AND STOOL UA Blood Large *ABN* (02/02/16 2:06 PM) Negative 02/02/2016 [facility] URINE AND STOOL UA Glucose 100 mg/dL Negative mg/dL 02/02/2016 [facility] URINE AND STOOL UA Ketones 15 mg/dL Negative mg/dL 02/02/2016 [facility] URINE AND STOOL UA Urobilinogen 1.0 EU/dL 0.1 - 1.0 02/02/2016 [facility] URINE AND STOOL UA Nitrite Positive *ABN* (02/02/16 2:06 PM) Negative 02/02/2016 [facility] URINE AND STOOL UA Spec Grav 1.020 <=1.030 02/02/2016 [facility] URINE AND STOOL UA Color Brooks *ABN* (02/02/16 2:06 PM) Yellow 02/02/2016 [facility] URINE AND STOOL UA Turbidity Cloudy *ABN* (02/02/16 2:06 PM) Clear 02/02/2016 [facility] URINE AND STOOL UA RBC >100 /HPF 0 - 2 02/02/2016 [facility] URINE AND STOOL UA WBC 3-5 /HPF None Seen /HPF 02/02/2016 [facility] URINE AND STOOL Micro? Performed (02/02/16 2:06 PM) 02/02/2016 [facility] URINE AND STOOL UA Sq Epi Rare /LPF Few /LPF 02/02/2016 [facility] URINE AND STOOL UA Bacteria Moderate /HPF None Seen /HPF 02/02/2016 [facility] CHEM PANEL Total Protein 8.3 g/dL 6.4 - 8.4 02/02/2016 [facility] CHEM PANEL Albumin Lvl 3.8 g/dL 3.5 - 5.0 02/02/2016 [facility] CHEM PANEL ALT 18 unit/L 0 - 65 02/02/2016 [facility] CHEM PANEL Alk Phos 113 unit/L 39 - 136 02/02/2016 [facility] CHEM PANEL Bili Total 1.5 mg/dL 0.2 - 1.3 02/02/2016 [facility] CHEM PANEL AST 25 unit/L 0 - 37 02/02/2016 [facility] CHEM PANEL B/C Ratio 10 6 - 25 02/02/2016 [facility] CHEM PANEL Globulin 4.5 g/dL 2.0 - 4.0 02/02/2016 [facility] CHEM PANEL A/G Ratio 0.8 0.7 - 1.6 02/02/2016 [facility] CARDIAC ENZYMES Total CK 532 unit/L 12 - 191 02/02/2016 [facility] CARDIAC ENZYMES CK MB Index 0.4 0.0 - 2.5 02/02/2016 [facility] CARDIAC ENZYMES CK MB 2.0 ng/mL 0.5 - 3.6 02/02/2016 [facility] CARDIAC ENZYMES Troponin-I null 0.00 - 0.40 02/02/2016 [facility] HEMATOLOGY Basophils # 0.1 K/CMM 0.0 - 0.2 02/02/2016 [facility] Renal Stone CT Renal Stone CT Clinical Indication: Abdominal pain, acute; Comparison: None CONTRAST: Intravenous contrast was not administered for this exam. Gastrointestinal contrast was not administered. TECHNIQUE: 3.[address] images of the abdomen and pelvis were obtained without intravenous administration of contrast. Coronal and sagittal reformats were performed and provided as separate series. CT Radiation Dose DLP 991.1 mGy-cm. FINDINGS: Atelectasis is noted within the lung bases, greater on the left. There is no pleural effusion. The heart is normal in size with trace pericardial effusion. The noncontrast liver is unremarkable. The patient is status post cholecystectomy. The noncontrast pancreas and adrenal glands are unremarkable. Calcified granuloma are noted within the spleen. Nonspecific bilateral perinephric stranding is noted. No renal stones are noted. There is no hydronephrosis. No stones are noted within the ureters or urinary bladder. The urinary bladder is decompressed by Spring catheter. Evaluation of the bowel is limited due to lack of oral contrast. No dilated loops of bowel are noted. No free fluid or air is noted within the abdomen or pelvis. No mesenteric or retroperitoneal lymphadenopathy is noted. The abdominal aorta is mildly atherosclerotic and normal in caliber. The prostate is enlarged and heterogeneous. Mild surrounding fat stranding is noted. Clinical correlation for prostatitis may be helpful. The prostate measures 5.4 x 6.1 cm in maximum cross-section. IMPRESSION: 1. No evidence of renal stone. 2. Enlarged prostate with mild surrounding inflammatory changes. Clinical correlation for prostatitis may be helpful. SL: [id number] 02/02/2016 - - Read by: Martin Almanza MD Dictated Date/time: 02/02/16 13:52 Electronically Signed by: Martin Almanza MD 02/02/16 14:04 FINAL REPORT [facility] Vital Signs Vital Sign Value Date Comments Source Respitory Rate 16 11/22/2016 [facility] Heart Rate 87 11/22/2016 [facility] Systolic (mm Hg) 161 11/22/2016 [facility] Diastolic (mm Hg) 95 11/22/2016 [facility] Temperature Oral (F) 98.7 F 11/22/2016 [facility] Systolic (mm Hg) 149 11/22/2016 [facility] Diastolic (mm Hg) 75 11/22/2016 [facility] Heart Rate 92 11/22/2016 [facility] Respitory Rate 17 11/22/2016 [facility] Temperature Oral (F) 98.8 F 11/22/2016 [facility] Temperature Oral (F) 98.3 F 11/22/2016 [facility] Respitory Rate 18 11/22/2016 [facility] Systolic (mm Hg) 168 11/22/2016 [facility] Diastolic (mm Hg) 97 11/22/2016 [facility] Heart Rate 90 11/22/2016 [facility] Weight 217 11/19/2016 [facility] BMI Calculated 77.22 11/19/2016 [facility] Height 167.64 cm 11/19/2016 [facility] Respitory Rate 18 02/12/2016 [facility] Temperature Oral (F) 98.3 F 02/12/2016 [facility] Heart Rate 73 02/12/2016 [facility] Systolic (mm Hg) 138 02/12/2016 [facility] Diastolic (mm Hg) 83 02/12/2016 [facility] Heart Rate 72 02/12/2016 [facility] Respitory Rate 18 02/12/2016 [facility] Temperature Oral (F) 97.8 F 02/12/2016 [facility] Systolic (mm Hg) 147 02/12/2016 [facility] Diastolic (mm Hg) 85 02/12/2016 [facility] Systolic (mm Hg) 119 02/12/2016 [facility] Diastolic (mm Hg) 73 02/12/2016 [facility] Temperature Oral (F) 98.4 F 02/12/2016 [facility] Heart Rate 83 02/12/2016 [facility] Respitory Rate 18 02/12/2016 [facility] Weight 95 02/02/2016 [facility] BMI Calculated 32.8 02/02/2016 [facility] Height 170.18 cm 02/02/2016 [facility] En[facility] Location Location Details Encounter Type Encounter Number Reason For Visit Attending Provider ADM Date DC Date Status Source [facility] Inpatient [id number] Lulú Logan 02/02/2016 02/12/2016 [facility] [place] [facility] [id number] Dillan Frankel Jr 06/17/2016 06/18/2016 [facility] [place] [facility] Inpatient [id number] [place] 11/19/2016 11/22/2016 [place] [facility] [place] [facility] [id number] Eladio Saini 11/29/2017 11/30/2017 [facility] [place] [facility] [place] [facility] [id number] Eladio Saini 12/26/2017 12/27/2017 [facility] [place] [facility] [place] [facility] [id number] Eladio Saini 12/28/2017 12/29/2017 [facility] [place] [facility] [place] [facility] [id number] Eladio Saini 01/09/2018 01/10/2018 [facility] [place] [facility] [place] [facility] [id number] Eladio Saini 12/07/2018 12/08/2018 [facility] [place] Procedures Procedure Code Date Perfomer Comments Source Carpal tunnel release [id number] [facility] [place] Cholecystectomy [id number] [facility] [place] Rotator cuff repair [id number] [facility] [place] Carpal tunnel release [id number] [facility] [place] Cholecystectomy [id number] [facility] [place] Rotator cuff repair [id number] [facility] [place] Carpal tunnel release [id number] [facility] Cholecystectomy [id number] [facility] Rotator cuff repair [id number] [facility] Carpal tunnel release [id number] [facility] Cholecystectomy [id number] [facility] Rotator cuff repair [id number] [facility]
--- OUTSIDE RECORDS SUMMARY | 2018-12-13 03:58 | XMS REPORT | Summary of Care ---
Author Author [facility] [place] Organization [facility] [place] Address Unknown Phone Unavailable Encounter HQ Rohith_meghan(FIN) [id number] Date(s): 06/17/16 - 06/17/16 [facility] [place] [address] [place] [phone] Discharge Disposition: Home or Self Care Attending Physician: Dillan Kemp MD Vital Signs No data available for this [...] Smoking Cessation Counseling No Assessment and Plan No data available for this section
--- OUTSIDE RECORDS SUMMARY | 2018-12-13 03:58 | XMS REPORT | Summary of Care ---
Author Author [facility] [place] Organization [facility] [place] Address Unknown Phone Unavailable Encounter HQ Clydentr_meghan(FIN) [id number] Date(s): 01/09/18 - 01/09/18 [facility] [place] [address] [phone] Discharge Disposition: Home or Self Care Attending [...]
[2018-12-13 04:24] LABS: BASOPHILS % 0.3 % (0.0-1.0); HEMATOCRIT 31.1 % (38.2-49.6); HEMOGLOBIN 9.9 g/dL (14.0-18.0); LYMPHOCYTES # (AUTO) 0.8 (1.0-3.2); LYMPHOCYTES % 25.6 % (18.0-39.1); MEAN CORPUSCULAR HEMOGLOBIN 29.2 pg (28-32); MEAN CORPUSCULAR HGB CONC 31.8 g/dL (31-35); MEAN CORPUSCULAR VOLUME 91.7 fL (81-99); MONOCYTES # (AUTO) 0.1 (0.2-0.8); MONOCYTES % 3.8 % (4.4-11.3); NEUTROPHILS # (AUTO) 2.2 (2.1-6.9); PLATELET COUNT 436 x10e3/uL (140-360); RED BLOOD COUNT 3.39 x10e6/uL (4.3-5.7); RED CELL DISTRIBUTION WIDTH 19.4 % (11.7-14.4)
--- NOTE | 2018-12-13 04:44 | Diagnostic Imaging Report ---
Examination: Single AP view of the chest. COMPARISON: None. INDICATION: Difficulty breathing DISCUSSION: Lines/tubes: None. Lungs: Pulmonary edema Pleura: No pleural effusion or pneumothorax. Heart and mediastinum: Cardiomegaly Bones and soft tissues: No acute bony abnormalities. IMPRESSION: 1. Lore with pulmonary edema Signed by: Dr. Ricky Fernandez M.D. on 12/13/2018 4:41 AM
[2018-12-13 04:45] LABS: ALBUMIN 4.1 g/dL (3.5-5.0); ALBUMIN/GLOBULIN RATIO 1.2 (0.8-2.0); ANION GAP 13.6 mmol/L (8-16); CALCIUM 9.9 mg/dL (8.4-10.2); CREATININE, SERUM 1.19 mg/dL (0.72-1.25); POTASSIUM 3.6 mmol/L (3.5-5.1)
[2018-12-13] MEDS ORDERED: FUROSEMIDE INJ 10 MG/ML 4 ML VIAL IV ONE (04:45)
[2018-12-13 04:53] LABS: CREATINE KINASE MB 5.7 ng/mL (0-5.0)
--- NOTE | 2018-12-13 04:59 | NUR ---
condom cath placed on patient per pt request. lasix 80mg ivp and nitro 1" to lcw applied. awake alert skin w/d resp nonlab. nad noted.
[2018-12-13] MEDS ORDERED: NITROGLYCERIN 2% OINT 1 GM PKT TOP ONE (05:00)
[2018-12-13] MEDS ORDERED: FUROSEMIDE20 MG PO (05:12)
[2018-12-13] MEDS ORDERED: ATENOLOL25 MG PO (05:12)
[2018-12-13] MEDS ORDERED: LISINOPRIL40 MG PO (05:12)
[2018-12-13] MEDS ORDERED: LORAZEPAM0.5 MG PO (05:12)
[2018-12-13] MEDS ORDERED: PANTOPRAZOLE SO40 MG PO (05:12)
[2018-12-13] MEDS ORDERED: ESIDRIX25 MG PO (05:12)
[2018-12-13] MEDS ORDERED: LOSARTAN POTASS25 MG PO (05:12)
[2018-12-13] MEDS ORDERED: CLONIDINE HCL0.1 MG PO (05:12)
--- OUTSIDE RECORDS SUMMARY | 2018-12-13 05:28 | XMS REPORT | Clinical Summary ---
Author Author [facility] Address Unknown Phone Unavailable Care Team Providers Care Internet Architect Name Role Phone Eladio Saini DO PCP [...] Plan / Group [employer] xxxxxxxxx O [facility] Advance Directives Patient has advance care planning documents on file. For more information, kendra priest contact: Sam Cordova [address] [facility] [place] [address]
--- OUTSIDE RECORDS SUMMARY | 2018-12-13 05:30 | XMS REPORT ---
Author Author [facility] Address Unknown Phone Unavailable Care Team Providers Care Loom Blower Name Role Phone Anali ANGELA Unavailable Unavailable Problems This patient has no known problems. Allergies, Adverse Reactions, Alerts This patient has no known allergies or adverse reactions. Medications This patient has no known medications. Results Test Description Test Time Test Comments Text Results Atomic Results Result Comments CHEST SINGLE (PORTABLE) 2018-12-13 04:40:00 [place] [address] Patient Name: ALEX RAZA MR #: [id number] : 1935 Age/Sex: 83/M Req #: [id number] Adm Physician: Ordered by: MALINA ANGELA MD Report #: [id number] Location: ER Room/Bed: Procedure: [id number] DX/CHEST SINGLE (PORTABLE) Exam Date: 12/13/18 Exam Time: 3 REPORT STATUS: Signed Examination: Single AP view of the chest. TOSHIA RISON: None. INDICATION: Difficulty breathing DISCUSSION: Lines/tubes: None. Lungs: Pulmonary edema Pleura: No pleural effusion or pneumothorax. Heart and mediastinum: Cardiomegaly Bones and soft tissues: No acute bony abnormalities. IMPRESSION: 1. Lore with pulmonary edema Signed by: Dr. Magi Gtz M.D. on 12/13/2018 4:41 AM Dictated By: MAGI GTZ MD 0 Transcribed By: CALVIN on 12/13/18440 COPY TO: MALINA ANGELA MD
--- NOTE | 2018-12-13 06:02 | NUR ---
Patient arrived on unit. Assisted to bed. Condom cath in place. Call light education provided and within reach. at bedside. Will continue to monitor.
[2018-12-13 06:33] LABS: CLARITY,URINE CLEAR (CLEAR); COLOR,URINE YELLOW (YELLOW)
[2018-12-13 06:34] LABS: BILIRUBIN,URINE NEGATIVE (NEGATIVE); KETONES,URINE NEGATIVE (NEGATIVE); LEUKOCYTE ESTERASE ,URINE NEGATIVE (NEGATIVE); NITRITE,URINE NEGATIVE (NEGATIVE); PROTEIN,URINE DIPSTICK TRACE (NEGATIVE); URINE UROBILINOGEN 0.2 mg/dL (0.2 - 1)
[2018-12-13] MEDS ORDERED: FOLIC ACID1 MG PO (06:49)
[2018-12-13] MEDS ORDERED: FINASTERIDE5 MG PO (06:49)
[2018-12-13] MEDS ORDERED: VITAMIN D400 UNIT PO (06:49)
[2018-12-13] MEDS ORDERED: VITAMIN B12 PO (06:49)
[2018-12-13] MEDS ORDERED: VITAMIN B 6 PO (06:49)
[2018-12-13 07:11] LABS: BACTERIA,URINE RARE /HPF; EPITHELIAL CELLS,URINE RARE /LPF; TRANSITIONAL EPI CELLS,URINE RARE
[2018-12-13 07:25] VITALS: BP 187/92
[2018-12-13] MEDS: FUROSEMIDE INJ 10 MG/ML 4 ML VIAL IV SCH ×2 (08:17→16:52)
--- NOTE | 2018-12-13 08:20 | NUR ---
Patient resting in bed, Alert with no distress, call light in reach, at bed side, Dr Hurst here for rounds
[2018-12-13] MEDS ORDERED: DEXTROSE 50% SYRINGE 50 ML IV PRN (09:15)
[2018-12-13 09:46] VITALS: BP 187/92
[2018-12-13] MEDS ORDERED: FINASTERIDE 5 MG TAB PO SCH (10:30)
[2018-12-13] MEDS ORDERED: TAMSULOSIN HCL 0.4 MG CAP PO SCH (10:30)
[2018-12-13] MEDS: ACETAMINOPHEN/CODEINE 300MG - 30MG TAB PO PRN ×2 (10:40→18:10)
[2018-12-13] MEDS: LISINOPRIL 20 MG TAB PO SCH (10:57)
[2018-12-13] MEDS: FOLIC ACID 1 MG TAB PO SCH (10:57)
[2018-12-13] MEDS: ATENOLOL 50 MG TAB PO SCH ×2 (10:58→17:34)
[2018-12-13] MEDS: ACYCLOVIR 200 MG CAP PO SCH (10:58)
[2018-12-13] MEDS: INSULIN LISPRO 100 UNIT/1 ML 3ML VIAL SQ SCH ×3 (11:30→21:37)
[2018-12-13 11:35] VITALS: BP 176/87
[2018-12-13 12:29] LABS: CREATINE KINASE MB 4.8 ng/mL (0-5.0)
--- NOTE | 2018-12-13 12:43 | NUR ---
SOCIAL WORK INITIAL ASSESSMENT Coding Specialist to bedside to discuss plan of care with patient/family. CM/SW role and care transitions discussed. Anticipated discharge plan discussed along with duration of care. CM/SW discussed patients right to make decisions in care. CM/SW work hours given. Patient lives: IN SENIOR APARTMENT Admit/Transfer: VIA ED POA/Emergency contact: MANNY AVITIA [phone] Current/Previous Home Health: NONE PCP/Follow-up Care: WENDIE Current/Previous DME: [facility] [employer] [facility] Other Services: NONE Employment Status: RETIRED Areas of Concerns: NONE Referral Needs: NONE Education Needs: NONE IMM/CONTEH given and signed (if applicable): ON ADMISSION Goal for discharge: RETURN BACK TO APARTMENT CM/SW left business card at the bedside with contact information. Name and number was also written on the patients whiteboard. Patient verbalized understanding of discussion. CM will follow-up with ongoing discharge and transition of care needs.
--- NOTE | 2018-12-13 13:48 | History and Physical ---
PRIMARY CARE PHYSICIAN: Eladio Saini D.O. PACKING AND SHIPPING CLERK: Gregory Barrientos M.D. CHIEF COMPLAINT: Acute congestive heart failure. HISTORY OF PRESENT ILLNESS: This is an 83-year-old male with recurrent fluid overload per spouse, and was treated by Dr. Eladio Saini. The patient did not see any structural mill supervisor for the past few years or in the past. The patient came in with high BNP. The patient did receive IV furosemide and did better. He did have significant lower extremity edema . Chest x-ray show pulmonary edema. PAST MEDICAL HISTORY: Hypertension, dyslipidemia, diabetes, enlarged prostate. PAST SURGICAL HISTORY: Knee surgery, right shoulder surgery, and cholecystectomy. SOCIAL HISTORY: The patient lives with his . He does not smoke or use alcohol. No recreational drugs. ALLERGIES: CIPRO. HOME MEDICATIONS: Tylenol No. 3, acyclovir, atenolol, vitamin D3, clonidine, finasteride nasal spray, folic acid, glipizide, hydrochlorothiazide, lisinopril, Flomax, B12, and B6. PHYSICAL EXAMINATION: VITAL SIGNS: Temperature is 98, blood pressure 187/92, pulse rate 76, respirations 18. GENERAL: The patient is not in acute distress. He is awake. HEENT: Normocephalic. NECK: Supple grossly. PULMONARY: Bilateral rales at the bases. CARDIOVASCULAR: S1, S2. Regular rate and rhythm. ABDOMEN: Soft. EXTREMITIES: 2+ edema. NEUROLOGIC: No focal deficit. LABORATORY DATA: Sodium 137, potassium 3.6, chloride 102, bicarb 25, BUN is 19, creatinine 1.1, glucose is 124. WBC 3.1, hemoglobin 9.9, hematocrit 31.1, and platelets are 436. Chest x-ray shows fluid, congestion and pulmonary edema. IMPRESSION: 1. Acute congestive heart failure. 2. Anemia. 3. Multiple chronic baseline problems. PLAN: IV Lasix. Echocardiogram. Consultation with Dr. Gregory Barrientos of Cardiology. Stool for occult blood. Iron profile, B12, folic acid level. We will continue to monitor the patient's fluid status. MD JUAN Molina/NATALIE /[id number] cc: Eladio Saini DO
[2018-12-13 15:06] VITALS: BP 199/96
--- NOTE | 2018-12-13 15:23 | NUR ---
Nutrition Intervention Note RD Recommendation(s) for Physician: -Rec cardiac/ ADA 2000 diet. -Rec Glucerna once per day. Plan of Care: RD following, monitoring for tolerance and adequacy. Provided education. Nutrition reason for involvement: Diagnosis- CHF RD Assessment 12/13: 83 YOM admitted for CHF. Spoke with pt and pts . Pt stated he has had a poor appetite for about 4 weeks, but they stated his UBW is around 207 pounds, suggesting pt has not lost any weight recently. Recommended an ONS d/t pts c/o of poor appetite and intake here in the hospital; pt agreed to supplement initiation. Ordered supplemented within EMR. No GI complains noted. Pt denied any chewing or swallowing difficulty. Educated pt and [facility] and provided educational handouts. They verbalized understanding. Will continue to monitor. Principal Problems/Diagnoses: CHF PMH: HTN, DM GI: Abdomen: soft, non-tender Skin: No pressure ulcer recorded. Labs: 12/13: Glucose 124 Meds: 12/13: Folic acid, lasix, insulin, glipizide, Ht: 67 in Wt: 207 lbs BMI: 32.5 kg/m2 IBW: 148 lbs Malnutrition Evaluation (12/13) The patient does not meet criteria for a specified degree of malnutrition at this time. Will re-evaluate at follow-up as appropriate. Nutrition Prescription: ADA 1999 Estimated Nutritional Needs: Calories: 1474-1675kcal(22-25kcal/kg/d) Weight used: IBW Protein : 100-134g (1.5-2g/kg/d) Weight used: IBW Diet Adequacy: Not meeting calorie needs, Not meeting protein needs Diet Education Needs Assessment: Diet education indicated and patient agreeable. Nutrition Care Level: low Nutrition Diagnosis: Inadequate energy intake related to medical diagnosis as evidenced by pts reports of poor appetite. Goal: Patient will meet 75-100% of estimated needs by follow up Progress: N/A Interventions: Carb modified diet, Commercial beverage Monitoring/Evaluation: -Total energy intake, Total protein intake, supplement, Weight change Nutrition Education Learner(s): pt, Time spent: 30 Barriers: none Cultural/Language Modifications: No cultural/language modifications noted. Readiness: acceptance Method: explanation/ discussion, handout Topics: heart healthy Understanding/Compliance: fair compliance expected, may need reinforcement. Nutrition Care Level: low Signed: Zaira Hill MS, RD, LD
[2018-12-13] MEDS ORDERED: NON-FORMULARY MEDICATION (Atenolol 25 MG) PO SCH (17:00)
--- NOTE | 2018-12-13 17:10 | NUR ---
Rechecked BP MANUALLY 169/80
[2018-12-13] MEDS: FLUTICASONE PROPIONATE NASAL SPRAY NS SCH (17:33)
[2018-12-13] MEDS: FINASTERIDE 5 MG TAB PO SCH (17:33)
[2018-12-13] MEDS: TAMSULOSIN HCL 0.4 MG CAP PO SCH (17:33)
--- NOTE | 2018-12-13 18:40 | NUR ---
PATIENT RESTING IN BED, NO DISTRESS
--- NOTE | 2018-12-13 19:00 | NUR ---
received report from day nurse. patient is resting comfortably in bed. bed is in lowest position and call resendiz is within reach.
[2018-12-13 20:00] VITALS: BP_SYST 178; BP_SYST 190; BP_DIAS 107; BP_DIAS 93
--- NOTE | 2018-12-13 20:00 | NUR ---
PATIENTS BLOOD PRESSURE IS 190/93. CONSULTED PHYSICIAN NOTIFIED. RECEIVED NEW ORDERS FOR BLOOD PRESSURE MEDICATIONS. WILL CONTINUE TO MONITOR PATIENT'S BLOOD PRESSURE.
[2018-12-13 21:32] LABS: CREATINE KINASE MB 3.3 ng/mL (0-5.0)
[2018-12-13] MEDS: AMLODIPINE BESYLATE 5 MG TAB PO SCH (21:38)
[2018-12-13] MEDS: HYDRALAZINE HCL 20 MG/ML VIAL IV PRN (21:38)
[2018-12-14] VITALS (8 sets, daily range): BP systolic 162–190; BP diastolic 77–85
[2018-12-14] MEDS ORDERED: SODIUM CHLORIDE 0.9% 250ML 250 ML ONE (00:14)
[2018-12-14] MEDS: HYDRALAZINE HCL 20 MG/ML VIAL IV PRN ×3 (05:03→20:48)
--- NOTE | 2018-12-14 05:03 | NUR ---
patients blood pressure is 183/102. patient will be medicated with prn blood pressure medication. will continue to monitor patient.
[2018-12-14] MEDS: ACETAMINOPHEN/CODEINE 300MG - 30MG TAB PO PRN ×2 (05:45→14:32)
[2018-12-14 05:47] LABS: EOSINOPHILS % 0.3 % (0.0-6.0); HEMATOCRIT 29.8 % (38.2-49.6); HEMOGLOBIN 9.8 g/dL (14.0-18.0); LYMPHOCYTES # (AUTO) 0.9 (1.0-3.2); LYMPHOCYTES % 25.1 % (18.0-39.1); MEAN CORPUSCULAR HEMOGLOBIN 29.1 pg (28-32); MEAN CORPUSCULAR HGB CONC 32.9 g/dL (31-35); MEAN CORPUSCULAR VOLUME 88.4 fL (81-99); MONOCYTES # (AUTO) 0.2 (0.2-0.8); MONOCYTES % 5.8 % (4.4-11.3); NEUTROPHILS # (AUTO) 2.4 (2.1-6.9); NEUTROPHILS % 68.2 % (38.7-80.0); PLATELET COUNT 441 x10e3/uL (140-360); RED BLOOD COUNT 3.37 x10e6/uL (4.3-5.7)
[2018-12-14 06:03] LABS: ANION GAP 13.1 mmol/L (8-16); BLOOD UREA NITROGEN 17 mg/dL (7-26); BUN/CREATININE RATIO 17 (6-25); CALCIUM 9.9 mg/dL (8.4-10.2); CARBON DIOXIDE 29 mmol/L (22-29); CHLORIDE 97 mmol/L (98-107); CREATININE, SERUM 1.01 mg/dL (0.72-1.25); EST GLOMERULAR FILTRATION RATE > 60 ML/MIN (60-); GLUCOSE 121 mg/dL (74-118); POTASSIUM 3.1 mmol/L (3.5-5.1); SODIUM 136 mmol/L (136-145)
[2018-12-14 06:26] LABS: CHOL/HDL RATIO 2.3 (3.9-4.7)
[2018-12-14 06:46] LABS: THYROID STIMULATING HORMONE 1.487 uIU/mL (0.350-4.940)
--- NOTE | 2018-12-14 06:51 | NUR ---
report given to day nurse. patient is resting comfortably in bed. bed is in lowest position and call resendiz is within reach.
[2018-12-14 07:19] LABS: FOLATE 29.3 ng/mL (7.0-15.4)
[2018-12-14] MEDS: INSULIN LISPRO 100 UNIT/1 ML 3ML VIAL SQ SCH ×4 (07:50→20:48)
[2018-12-14] MEDS: GLIPIZIDE 5 MG TAB PO SCH (08:15)
[2018-12-14] MEDS: LISINOPRIL 20 MG TAB PO SCH (08:21)
[2018-12-14] MEDS: ATENOLOL 50 MG TAB PO SCH ×2 (08:21→17:56)
[2018-12-14] MEDS: ACYCLOVIR 200 MG CAP PO SCH (08:21)
[2018-12-14] MEDS: FOLIC ACID 1 MG TAB PO SCH (08:21)
[2018-12-14] MEDS: AMLODIPINE BESYLATE 5 MG TAB PO SCH (08:21)
[2018-12-14] MEDS: FLUTICASONE PROPIONATE NASAL SPRAY NS SCH ×2 (08:22→17:55)
[2018-12-14] MEDS ORDERED: NON-FORMULARY MEDICATION (Lisinopril 40 MG) PO SCH (09:00)
[2018-12-14] MEDS ORDERED: POTASSIUM CHLORIDE 20 MEQ TAB CR PO NR (09:00)
[2018-12-14] MEDS ORDERED: POTASSIUM CHLORIDE 10MEQ EA PO NR (09:00)
--- NOTE | 2018-12-14 14:10 | NUR ---
ORDER RECEIVED FOR HOME SN EVAL. MET W THE PT AND AT THE BEDSIDE TO DISCUSS CHOICE. CHOICE LETTER WAS SIGNED AND COPY TO PT AND COPY TO CHART. PT AGREED TO [facility]. OFF: [phone] / FAX: [phone].
--- NOTE | 2018-12-14 14:29 | Consultation ---
DATE OF CONSULTATION: 12/13/2018 REASON FOR CONSULTATION: CHF. HISTORY OF PRESENT ILLNESS: This is a pleasant 83-year-old male, who presented with shortness of breath. According to the patient, for the last one year, he has been having shortness of breath accompanying with bilateral lower extremity edema and he has been treated by Dr. Saini and he never followed up with any registered nurse nursery. He stated within the last 2-3 weeks, the shortness of breath got worse that he decided to come to the emergency room for evaluation. He denied any chest pain, any palpitation, any dizziness, any diaphoresis, any headache, nausea, or vomiting. He had a chest x-ray done in the ER that showed pulmonary edema and cardiomegaly. BNP was 1630. PAST MEDICAL HISTORY: High blood pressure, diabetes, BPH, hyperlipidemia. PAST SURGICAL HISTORY: Bilateral shoulder surgery, cholecystectomy, left knee surgery, and left carpal tunnel surgery. FAMILY HISTORY: Positive for hypertension and diabetes. SOCIAL HISTORY: No smoking, no drinking. MEDICATIONS: See med list. ALLERGIES: HE IS ALLERGIC TO CIPRO. REVIEW OF SYSTEMS: Negative except those mentioned above. PHYSICAL EXAMINATION: VITAL SIGNS: Temperature 98, heart rate 98, blood pressure 190/82, respirations 18, and oxygen saturation 98% on room air. GENERAL: He is awake, alert, and oriented x3. HEENT: Mucous membranes moist. NECK: Supple. LUNGS: Bilateral with decreased breath sounds. CARDIOVASCULAR: S1 and S2 present. ABDOMEN: Soft. NEUROLOGICAL: Intact. EXTREMITIES: With 2 to 3+ pitting edema. LABS: Sodium 136, potassium 3.1, chloride 97, CO2 of 29, BUN 17, creatinine 1.09, glucose 121. White blood cell 3.47, hemoglobin 9.8, hematocrit 29.8, platelets 441. IMPRESSION: 1. Acute on chronic diastolic congestive heart failure. 2. Hypertension. 3. Diabetes. 4. Hypokalemia. PLAN: 1. We will put him on diuretic. 2. Continue beta-wesly and add AYANA inhibitor. 3. Potassium was low and has been replaced. 4. We will put him on 1.5-2 L of fluid restriction. 5. Low-salt diet. 6. We will get bilateral lower extremity Doppler to rule out any DVT. Further cardiac workup pending clinical course. Thank you for this consultation. Dictated by Michael Ritchie, RUBY DEVELOPER MD SILVIA Foss /[id number]
[2018-12-14] MEDS: FUROSEMIDE INJ 10 MG/ML 4 ML VIAL IV SCH (14:48)
--- NOTE | 2018-12-14 16:42 | NUR ---
patient resting in bed, assisted him to use restroom. Not in any distress
[2018-12-14] MEDS: FINASTERIDE 5 MG TAB PO SCH (17:55)
[2018-12-14] MEDS: TAMSULOSIN HCL 0.4 MG CAP PO SCH (17:55)
[2018-12-15 04:00] VITALS: BP 170/79
[2018-12-15] MEDS: HYDRALAZINE HCL 20 MG/ML VIAL IV PRN (05:55)
[2018-12-15] MEDS ORDERED: POTASSIUM CHLORIDE 10MEQ EA PO SCH (06:00)
--- NOTE | 2018-12-15 06:43 | NUR ---
report given to day nurse. patient is resting comfortably in bed. bed is in lowest position and call resendiz is within reach.
[2018-12-15] MEDS: INSULIN LISPRO 100 UNIT/1 ML 3ML VIAL SQ SCH (07:17)
[2018-12-15] MEDS: LISINOPRIL 20 MG TAB PO SCH (07:24)
[2018-12-15] MEDS: FUROSEMIDE INJ 10 MG/ML 4 ML VIAL IV SCH (07:24)
[2018-12-15] MEDS: FLUTICASONE PROPIONATE NASAL SPRAY NS SCH (07:24)
[2018-12-15] MEDS: FOLIC ACID 1 MG TAB PO SCH (07:24)
[2018-12-15] MEDS: AMLODIPINE BESYLATE 5 MG TAB PO SCH (07:24)
[2018-12-15] MEDS: GLIPIZIDE 5 MG TAB PO SCH (07:24)
[2018-12-15] MEDS: ACYCLOVIR 200 MG CAP PO SCH (07:25)
[2018-12-15] MEDS: ATENOLOL 50 MG TAB PO SCH (07:25)
[2018-12-15 08:30] VITALS: BP 170/74
[2018-12-15 08:31] VITALS: BP 170/74
--- NOTE | 2018-12-15 09:14 | NUR ---
CALL TO [facility] TO VERIFY IF PT ACCEPTED. INTAKE STATES THEY ARE NOT ACCEPTING ANY [facility] + PT'S AT THIS TIME. REFERRAL WAS FAXED TO [facility] @ OFF: [phone] / FAX: [phone].
[2018-12-15] MEDS ORDERED: LASIX40 MG PO ×2 (10:15→10:16)
[2018-12-15] MEDS ORDERED: POTASSIUM CHLO20 ME1 PO (10:17)
== END 2018-12-15 10:45 | disposition home or self-care (01) ==
LOC: ER 03:54 → ERHOLD 05:25 → IMCU 06:05
PROVIDERS: ADMIT Internal Medicine; ATTEND Internal Medicine
DX: I11.0 Hypertensive heart disease with heart failure (principal); I50.33 Acute on chronic diastolic (congestive) heart failure; E11.9 Type 2 diabetes mellitus without complications; Z79.4 Long term (current) use of insulin; E87.6 Hypokalemia; E78.5 Hyperlipidemia, unspecified; N40.0 Benign prostatic hyperplasia without lower urinary tract symptoms
CPT/HCPCS: 36415 ×3; 71045; 80048; 80053; 80061; 81001; 82550; 82553; 82607; 82746; 82948 ×3; 83036; 83540; 83690; 83880; 84443; 84466; 84484; 85025 ×2; 93005; 93306; 93970; 94660; 99284; G0378 ×3; J0360 ×3; J1940 ×3; J7050

== ENCOUNTER 2019-01-31 16:54 | Observation (INO) | payer OTHER ==
[~2019-01-31] VITALS: Ht 167.6 cm; Wt 88.5 kg
[~2019-01-31 16:54] MED LIST changes: +ATENOLOL25 MG PO; +CLONIDINE HCL0.1 MG PO; +ESIDRIX25 MG PO; +FINASTERIDE5 MG PO; +FOLIC ACID1 MG PO; +FUROSEMIDE20 MG PO; +LASIX40 MG PO; +LISINOPRIL40 MG PO; +LORAZEPAM0.5 MG PO; +LOSARTAN POTASS25 MG PO; +PANTOPRAZOLE SO40 MG PO; +POTASSIUM CHLO20 ME1 PO; +VITAMIN B 6 PO; +VITAMIN B12 PO; +VITAMIN D400 UNIT PO
--- OUTSIDE RECORDS SUMMARY | 2019-01-31 16:56 | XMS REPORT | Clinical Summary ---
Author Author [facility] Organization [facility] Address Unknown Phone Unavailable Care Team Providers Care Riding Silks Custodian Name Role Phone Eladio Saini PCP Allergies Comments Active Allergy Reactions Severity [...] hearing loss (SNHL) of both ears 12/30/2017 Family History Medical History Relation Name Comments [...] travel history available. Last Filed Vital Signs Not on file Plan of Treatment Health Maintenance Due Date Last Done Comments SHINGLES VACCINES (#1) 1985 65+ PNEUMOCOCCAL VACCINE 2000 (1 of 2 - PCV13) PNEUMOCOCCAL 2000 POLYSACCHARIDE VACCINE AGE 65 AND OVER INFLUENZA VACCINE 04/12/2019 Results Not on fileafter 01/30/2018 Insurance Type Payer Benefit Subscriber ID Effective Phone Address Plan / Dates Group HMO [employer] xxxxxxxxx 2016-P [place] blue Advance Directives Patient has advance care planning documents on file. For more information, kendra priest contact: Sam Cordova [address] [place] [address]
--- OUTSIDE RECORDS SUMMARY | 2019-01-31 16:57 | XMS REPORT | Continuity of Care Document ---
Author Author [facility] Interface Address Unknown Phone Unavailable Problems Problem Status Onset Date Classification Date Reported Comments Source Pain in right knee 12/06/2017 03/07/2018 [facility] [place] HTN/DM Active 11/18/2016 [facility] HYPONATREMIA, HYPOKALEMIA Active 11/18/2016 [facility] UNABLE TO VOID Active 02/02/2016 [facility] DM (<span ID="[id number]</span>) Resolved Problem [facility] [place] [place] HTN (<span ID="[id number]">Confirmed</span>) Resolved Problem 12/24/2018 [facility] [place], [facility] [place] Arthritis Resolved Problem 12/24/2018 [facility] [place], [facility] [place] Vertigo Resolved Problem 12/24/2018 [facility] [place], [facility] [place] Dizziness and giddiness 01/18/2018 [facility] [place] Cerebral ischemia 01/18/2018 [facility] [place] Other specified disorders of brain 01/18/2018 [facility] [place] Pain in left elbow 03/07/2018 [facility] [place] Final: Secondary hypertension, unspecified 11/25/2016 [facility] SEPSIS DUE TO UNSPECIFIED STAPHYLOCOCCUS Active [facility] SECONDARY HYPERTENSION, UNSPECIFIED Active [facility] HYPO-OSMOLALITY AND HYPONATREMIA Active [facility] HYPOKALEMIA Active [facility] Medications Medication Details Route Status Patient Instructions Ordering Provider Order Date Source Metformin hydrochloride 1000 MG Oral Tablet 1,000 mg=1 tab, PO, BID, # 60 tab, 0 Refill(s) Active 11/22/2016 [facility] carvedilol 12.5 mg oral tablet 12.5 mg=1 tab, PO, Q12H, # 60 tab, 0 Refill(s) Active 11/22/2016 [facility] Amoxicillin 875 MG / Clavulanate 125 MG Oral Tablet [Augmentin 875-mg] 1 tab, PO, Q12H, X 10 day, # 20 tab, 0 Refill(s) Active 11/22/2016 [facility] Acetaminophen 300 MG / Codeine Phosphate 30 MG Oral Tablet [Tylenol with Codeine #3] 1 - 2 tab, PO, Q4H, PRN Pain, X 2 day, # 20 tab, 0 Refill(s) No Longer Active 11/22/2016 [facility] Amoxicillin 875 MG / Clavulanate 125 MG Oral Tablet [Augmentin 875-mg] 1 tab, Route: PO, Drug Form: TAB, Dosing Weight 217, kg, Q12H, Start date: 11/22/16 9:00:00 CDT, Duration: 10 day, Stop date: 12/01/16 21:00:00 CDTNotes: With food. (Same as: Augmentin 875) Inactive 11/22/2016 [facility] Metformin hydrochloride 1000 MG Oral Tablet 1,000 mg, 2 tab, Route: PO, Drug form: TAB, BID, Dosing Weight 217, kg, Start date: 11/21/16 9:00:00 CDT, Duration: 30 day, Stop date: 12/20/16 17:00:00 CDTNotes: (Same as: Glucophage) Take with meal No Longer Active 11/21/2016 [facility] Glipizide 2.5 mg, 0.5 tab, Route: PO, Drug form: TAB, Before Breakfast, Dosing Weight 217, kg, Start date: 11/21/16 7:30:00 CDT, Duration: 30 day, Stop date: 12/20/16 7:30:00 CDTNotes: (Same as: Glucotrol) 30 min before meals. No Longer Active 11/21/2016 [facility] Benzocaine 15 MG / Menthol 3.6 MG Lozenge [Cepacol Sore Throat Pain Relief 15/3.6] 1 lozenge, Route: MUCOUS MEM, Drug Form: CHUCHO, Dosing Weight 217, kg, Q4H, PRN Sore Throat, Start date: 11/20/16 20:42:00 [employer], Duration: 30 day, Stop date: 12/20/16 20:41:00 CDTNotes: Same as: Cepacol No Longer Active 11/21/2016 [facility] Amlodipine 10 mg, 2 tab, Route: PO, Drug form: TAB, Daily, Dosing Weight 217, kg, Start date: 11/20/16 9:00:00 [employer], Duration: 30 day, Stop date: 12/19/16 9:00:00 CDTNotes: (Same as: Norvasc) No Longer Active 11/20/2016 [facility] metoprolol tartrate 50 mg, 1 tab, Route: PO, Drug form: TAB, Q12H, Dosing Weight 217, kg, Start date: 11/19/16 21:00:00 [employer], Duration: 30 day, Stop date: 12/19/16 9:00:00 CDTNotes: (Same as: Lopressor) Inactive 11/20/2016 [facility] Coreg 12.5 mg, 1 tab, Route: PO, Drug form: TAB, Q12H, Dosing Weight 217, kg, Start date: 11/19/16 21:00:00 [employer], Duration: 30 day, Stop date: 12/19/16 9:00:00 CDTNotes: Give with food. (Same As: Coreg) No Longer Active 11/20/2016 [facility] Fluticasone propionate 0.05 MG/ACTUAT Metered Dose Nasal [place] [Flonase] 2 spray, Route: Each Affected Nostril, Drug Form: SPRY, Dosing Weight 217, kg, BID, PRN Congestion, Start date: 11/19/16 19:36:00 [employer], Duration: 30 day, Stop date: 12/19/16 19:35:00 CDTNotes: (Same as: Flonase) No Longer Active 11/20/2016 [facility] tamsulosin 0.4 mg, 1 cap, Route: PO, Drug form: CAP, After Dinner, Dosing Weight 217, kg, Start date: 11/19/16 17:00:00 [employer], Duration: 30 day, Stop date: 12/18/16 17:00:00 CDTNotes: (Same As: Flomax) "Do Not Crush" No Longer Active 11/19/2016 [facility] Doxazosin 1 mg, 1 tab, Route: PO, Drug form: TAB, Daily, Dosing Weight 217, kg, Start date: 11/19/16 17:00:00 [employer], Duration: 30 day, Stop date: 12/18/16 17:00:00 CDTNotes: (Same as: Cardura) No Longer Active 11/19/2016 [facility] benzonatate 100 mg, Route: PO, Drug form: CAP, TID, Dosing Weight 217, kg, Start date: 11/19/16 17:00:00 [employer], Duration: 30 day, Stop date: 12/19/16 13:00:00 CDT Inactive 11/19/2016 [facility] Acetaminophen 325 MG / Hydrocodone Bitartrate 5 MG Oral Tablet 1 tab, Route: PO, Drug Form: TAB, Dosing Weight 217, kg, Q4H, PRN Pain Score 7-10, Start date: 11/19/16 14:40:00 [employer], Duration: 30 day, Stop date: 12/19/16 14:39:00 CDTNotes: (Same as: [place] 325/5) Do not exceed 4gm/day of acetaminophen. No Longer Active 11/19/2016 [facility] Acetaminophen 300 MG / Codeine Phosphate 30 MG Oral Tablet [Tylenol with Codeine #3] 1 tab, Route: PO, Drug Form: TAB, Dosing Weight 217, kg, Q4H, PRN Pain Score 4-6, Start date: 11/19/16 14:40:00 [employer], Duration: 30 day, Stop date: 12/19/16 14:39:00 CDTNotes: Do not exceed 4gm/day of evette taminophen. (Same as: Tylenol with Codeine # 3) No Longer Active 11/19/2016 [facility] benzonatate 100 mg, 1 cap, Route: PO, Drug form: CAP, TID, Dosing Weight 217, kg, PRN Cough/Congestion, Start date: 11/19/16 13:34:00 [employer], Duration: 30 day, Stop date: 12/19/16 13:33:00 CDTNotes: (Same As: Racquel Bui) "Do Not Crush" No Longer Active 11/19/2016 [facility] Hydralazine 10 mg, 0.5 mL, Route: IVP, Drug form: INJ, Q6H, Dosing Weight 217, kg, PRN Hypertension, Start date: 11/19/16 13:33:00 [employer], Duration: 30 day, Stop date: 12/19/16 13:32:00 CDTNotes: (Same as: Apresoline) Push over 5 minutes No Longer Active 11/19/2016 [facility] Insulin, Aspart, Human 5 unit, 0.05 mL, Route: SUB-Q, Drug form: SOLN, TID-Before Meals, Dosing Weight 217, kg, PRN Blood Glucose Results, Start date: 11/19/16 13:33:00 [employer], Duration: 30 day, Stop date: 12/19/16 13:32:00 CDTNotes: Roll in palms of hands gently; Do not shake vigorously. (Same as: NovoLOG) "single patient use only" WASTE: F/P - Black; E - Municipal Trash Bin Stable for 28 days at room temperature. Expires in days from Date No Longer Active 11/19/2016 [facility] Dextrose 50% Syringe 12.5 gm, 25 mL, Route: IVP, Drug Form: INJ, Dosing Weight 217, kg, PRN, PRN Blood Glucose Results, Start date: 11/19/16 13:33:00 [employer], Duration: 30 day, Stop date: 12/19/16 14:32:00 CDT No Longer Active 11/19/2016 [facility] Glucagon 1 mg, Route: IM, Drug form: PDR/INJ, PRN, Dosing Weight 217, kg, PRN Blood Glucose Results, Start date: 11/19/16 13:33:00 [employer], Duration: 30 day, Stop date: 12/19/16 14:32:00 CDT No Longer Active 11/19/2016 [facility] Fluticasone propionate 0.05 MG/ACTUAT Metered Dose Nasal [place] [Flonase] 2 spray, Route: Each Affected Nostril, Drug Form: SPRY, Dosing Weight 217, kg, Daily, PRN Congestion, Start date: 11/19/16 13:23:00 [employer], Duration: 30 day, Stop date: 12/19/16 13:22:00 CDTNotes: (Same as: Flonase) Inactive 11/19/2016 [facility] Docusate Sodium 100 MG Oral Capsule 100 mg, 1 cap, Route: PO, Drug form: CAP, BID, Dosing Weight 217, kg, PRN Constipation, Start date: 11/19/16 13:18:00 [employer], Duration: 30 day, Stop date: 12/19/16 13:17:00 CDTNotes: (Same as: Colace) (Do Not Crush) No Longer Active 11/19/2016 [facility] Acetaminophen 325 MG / Hydrocodone Bitartrate 5 MG Oral Tablet 1 tab, Route: PO, Drug Form: TAB, Dosing Weight 217, kg, Q4H, PRN Pain Score 4-6, Start date: 11/19/16 13:15:00 [employer], Duration: 30 day, Stop date: 12/19/16 13:14:00 CDTNotes: (Same as: [place] 325/5) Do not exceed 4gm/day of acetaminophen. Inactive 11/19/2016 [facility] Ondansetron 4 mg, 2 mL, Route: IVP, Drug form: INJ, Q6H, Dosing Weight 217, kg, PRN Nausea & Vomiting, Start date: 11/19/16 13:15:00 [employer], Duration: 30 day, Stop date: 12/19/16 13:14:00 CDTNotes: (Same as: Gale) MEDICATION WASTE Product Size: 4 mg Product Wasted: ___ mg No Longer Active 11/19/2016 [facility] Acetaminophen 650 mg, 2 tab, Route: PO, Drug form: TAB, Q4H, Dosing Weight 217, kg, PRN Pain 1-3/Temp > 100.4 F, Start date: 11/19/16 13:15:00 [employer], Duration: 30 day, Stop date: 12/19/16 13:14:00 CDTNotes: Do not e xceed 4 gm/day. (Same as: Tylenol) No Longer Active 11/19/2016 [facility] sodium phosphate + D5W 240 mL 30 mmol, 10 mL, Route: IVPB, PRN, Dosing Weight 217, kg, PRN Abnormal Lab Result, For NON-ICU Patients Only., Start date: 11/19/16 13:13:00 [employer], Duration: 30 day, Stop date: 12/19/16 14:12:00 CDT No Longer Active 11/19/2016 [facility] sodium phosphate + D5W 245 mL 15 mmol, 5 mL, Route: IVPB, PRN, Dosing Weight 217, kg, PRN Abnormal Lab Result, For NON-ICU Patients Only., Start date: 11/19/16 13:13:00 [employer], Duration: 30 day, Stop date: 12/19/16 14:12:00 CDT No Longer Active 11/19/2016 [facility] Calcium Gluconate 3 gm, 30 mL, Route: IVPB, PRN, Dosing Weight 217, kg, PRN Abnormal Lab Result, For NON-ICU Patients Only., Start date: 11/19/16 13:13:00 [employer], Duration: 30 day, Stop date: 12/19/16 14:12:00 CDTNotes: WASTE: F/P - Sink; E - Municipal Trash Bin No Longer Active 11/19/2016 [facility] Magnesium Sulfate 2 gm, 50 mL, Route: IVPB, Drug form: INJ, PRN, Dosing Weight 217, kg, PRN Abnormal Lab Result, For NON-ICU Patients Only., Start date: 11/19/16 13:13:00 [employer], Duration: 30 day, Stop date: 12/19/16 14:12:00 CDTNotes: WASTE: F/P - Sink; E - Municipal Trash Bin No Longer Active 11/19/2016 [facility] Magnesium Oxide 800 mg, 2 tab, Route: PO, Drug form: TAB, PRN, Dosing Weight 217, kg, PRN Abnormal Lab Result, For NON-ICU Patients Only., Start date: 11/19/16 13:13:00 [employer], Duration: 30 day, Stop date: 12/19/16 14:12:00 CDTNotes: (Same as: Mag-Ox 400) Magnesium oxide [id number] elemental magnesium Dose=____mg magnesium oxide (___mg elemental magnesium) No Longer Active 11/19/2016 [facility] potassium phosphate-sodium phosphate 250 mg-280 mg-160 mg oral powder for reconstitution 2 pkt, Route: PO, Drug Form: PDR/REC, Dosing Weight 217, kg, PRN, PRN Abnormal Lab Result, For NON-ICU Patients Only, Start date: 11/19/16 13:13:00 [employer], Duration: 30 day, Stop date: 12/19/16 14:12:00 CDTNotes: (Same as: Phos-NaK) Each 1.5 gm pkt has 250mg phosphorous. Mix w/2.5oz water and stir. No Longer Active 11/19/2016 [facility] potassium phosphate + sodium chloride 0.9% INJ 240 mL 30 mmol, 10 mL, Route: IVPB, PRN, Dosing Weight 217, kg, PRN Abnormal Lab Result, For NON-ICU Patients Only., Start date: 11/19/16 13:13:00 [employer], Duration: 30 day, Stop date: 12/19/16 14:12:00 CDTNotes: (Same as: K Phosphate.) 1 mMol phoshate has 1.47 mEq potassium Infuse over 4 hours No Longer Active 11/19/2016 [facility] potassium phosphate + sodium chloride 0.9% INJ 245 mL 15 mmol, 5 mL, Route: IVPB, PRN, Dosing Weight 217, kg, PRN Abnormal Lab Result, For NON-ICU Patients Only., Start date: 11/19/16 13:13:00 [employer], Duration: 30 day, Stop date: 12/19/16 14:12:00 CDTNotes: (Same as: K Phosphate.) 1 mMol phoshate has 1.47 mEq potassium Infuse over 4 hours No Longer Active 11/19/2016 [facility] potassium chloride 20 mEq, 15 mL, Route: NJ, Drug form: LIQ, PRN, Dosing Weight 217, kg, PRN Abnormal Lab Result, For NON-ICU Patients Only, Start date: 11/19/16 13:13:00 [employer], Duration: 30 day, Stop date: 12/19/16 14:12:00 CDTNotes: (Same as: Potassium Chloride) No Longer Active 11/19/2016 [facility] Sodium Chloride 0.154 MEQ/ML Injectable Solution 1,000 mL, Rate: 100 ml/hr, Infuse over: 10 hr, Route: IV, Dosing Weight 217 kg, Total Volume: 1,000, Start date: 11/19/16 12:58:00 [employer], Duration: 30 day, Stop date: 12/19/16 12:57:00 CDT No Longer Active 11/19/2016 [facility] metoprolol tartrate 50 mg, 1 tab, Route: PO, Drug form: TAB, BID, Dosing Weight 95, kg, Start date: 02/12/16 17:00:00 CDT, Duration: 30 day, Stop date: 03/13/16 9:00:00 CDTNotes: (Same as: Lopressor) Inactive 02/12/2016 [facility] meropenem 500 MG Injection [Merrem] 500 mg, IV, Q6H Active 02/12/2016 [facility] Glipizide 5 MG Oral Tablet 2.5 mg=0.5 tab, PO, Daily, # 15 tab, 0 Refill(s) Active 02/12/2016 [facility] tamsulosin 0.4 mg oral capsule 0.4 mg=1 cap, PO, After Dinner, 0 Refill(s) Active 02/12/2016 [facility] metoprolol tartrate 50 mg oral tablet 50 mg=1 tab, PO, BID, 0 Refill(s) Active 02/12/2016 [facility] docusate sodium 100 mg oral capsule 100 mg=1 cap, PO, BID, PRN Constipation, 0 Refill(s) Active 02/12/2016 [facility] Acetaminophen 325 MG / Hydrocodone Bitartrate 5 MG Oral Tablet [Independence 5/325] 1 tab, PO, Q6H, PRN Pain Score 1-3, 0 Refill(s) Active 02/12/2016 [facility] Spironolactone 25 mg, 1 tab, Route: PO, Drug form: TAB, BID, Dosing Weight 95, kg, Priority: NOW, Start date: 02/10/16 9:47:00 CDT, Duration: 3 day, Stop date: 02/13/16 6:00:00 CDTNotes: (Same As: Aldactone) No Longer Active 02/10/2016 [facility] Gentamicin level scheduled Gentamicin level scheduled, Gent level due, Drug form: MISC, Route: MISC, ONCE, 02/09/16 19:30:00 CDT, Stop date: 02/09/16 19:30:00 CDT No Longer Active 02/10/2016 [facility] Tums 1,250 mg, 2.5 tab, Route: CHEW, Drug form: CHEWTAB, TID, Dosing Weight 95, kg, Start date: 02/09/16 9:00:00 CDT, Duration: 30 day, Stop date: 03/09/16 17:00:00 CDTNotes: (Same As: Tums) Calcium Carbonate 500 [id number] mg elemental calcium Dose= mg calcium carbonate ( mg elemental calcium) No Longer Active 02/09/2016 [facility] Famotidine 40 MG Oral Tablet [Pepcid] 40 mg, 2 tab, Route: PO, Drug form: TAB, Daily, Dosing Weight 95, kg, Start date: 02/08/16 21:30:00 CDT, Duration: 30 day, Stop date: 03/09/16 9:00:00 CDTNotes: (Same as: Pepcid) No Longer Active 02/09/2016 [facility] Flomax 0.4 mg, 1 cap, Route: PO, Drug form: CAP, After Dinner, Dosing Weight 95, kg, Start date: 02/08/16 17:00:00 CDT, Duration: 30 day, Stop date: 03/08/16 17:00:00 CDTNotes: (Same As: Flomax) "Do Not Crush" No Longer Active 02/08/2016 [facility] Saline Flush 0.9% 10 mL, Route: IVP, Drug Form: INJ, Dosing Weight 95, kg, Q8H, Start date: 02/08/16 16:00:00 CDT, Duration: 30 day, Stop date: 03/09/16 8:00:00 CDTNotes: (Same as: BD Posiflush) No Longer Active 02/08/2016 [facility] Lidocaine Hydrochloride 10 MG/ML Injectable Solution 50 mg, 5 mL, Route: INTRADERM, Drug Form: INJ, Dosing Weight 95, kg, ONCALL, Start date: 02/08/16 14:00:00 CDT, Duration: 30 day, Stop date: 03/09/16 13:59:00 CDTNotes: Preservative free. (Same as: Xylocaine MPF) No Longer Active 02/08/2016 [facility] Saline Flush 0.9% 10 mL, Route: IVP, Drug Form: INJ, Dosing Weight 95, kg, PRN, PRN Line Flush, Start date: 02/08/16 13:06:00 CDT, Duration: 30 day, Stop date: 03/09/16 13:05:00 CDTNotes: (Same as: BD Posiflush) No Longer Active 02/08/2016 [facility] Gentamicin level scheduled Gentamicin level scheduled, Gent level due, Drug form: MISC, Route: MISC, ONCE, 02/07/16 19:30:00 CDT, Stop date: 02/07/16 19:30:00 CDT Inactive 02/08/2016 [facility] potassium phosphate + Sodium Chloride 0.9% IV 250 mL 18 mmol, 6 mL, Route: IVPB, ONCE, Dosing Weight 95, kg, Start date: 02/06/16 19:02:00 CDT, Stop date: 02/06/16 19:02:00 CDTNotes: (Same as: K Phosphate.) 1 mMol phoshate has 1.47 mEq potassium Infuse over 4 hours Inactive 02/07/2016 [facility] metoprolol tartrate 50 mg, 1 tab, Route: PO, Drug form: TAB, Q8H, Dosing Weight 95, kg, Priority: NOW, Start date: 02/06/16 8:25:00 CDT, Stop date: 03/07/16 8:00:00 CDTNotes: (Same as: Lopressor) No Longer Active 02/06/2016 [facility] Merrem 1,000 mg, Route: IVPB, Drug form: PDR/INJ, ABXQ6H, Dosing Weight 95, kg, CrCl >50, Extended infusion, infuse over 3 hours, Start date: 02/05/16 18:00:00 CDT, Duration: 30 day, Stop date: 03/06/16 12:00:00 CDT Inactive 02/05/2016 [facility] Gentamicin trough due Gentamicin trough due, -, Drug form: MISC, Route: MISC, ONCE, 02/05/16 15:30:00 CDT, Stop date: 02/05/16 15:30:00 CDT Inactive 02/05/2016 [facility] potassium phosphate + Sodium Chloride 0.9% IV 250 mL 30 mmol, 10 mL, Route: IVPB, ONCE, Dosing Weight 95, kg, Start date: 02/05/16 7:51:00 CDT, Stop date: 02/05/16 7:51:00 CDTNotes: (Same as: K Phosphate.) 1 mMol phoshate has 1.47 mEq potassium Infuse over 4 hours Inactive 02/05/2016 [facility] meropenem + Sodium Chloride 0.9% IV 100 mL 500 mg, Route: IVPB, ABXQ6H, Start date: 02/05/16 1:00:00 CDT, Duration: 30 day, Stop date: 03/05/16 19:00:00 CDTNotes: Same as Merrem MEDICATION WASTE Product Size: 500 mg Product Wasted: ___ mg No Longer Active 02/05/2016 [facility] Zofran 4 mg, 2 mL, Route: IV, Drug form: INJ, Q4H, Dosing Weight 95, kg, PRN Nausea, Start date: 02/04/16 21:54:00 CDT, Duration: 30 day, Stop date: 03/05/16 21:53:00 CDTNotes: (Same as: Zofran) MEDICATION WASTE Product Size: 4 mg Product Wasted: ___ mg No Longer Active 02/05/2016 [facility] metoprolol tartrate 25 mg, 1 tab, Route: PO, Drug form: TAB, Q12H, Dosing Weight 95, kg, Start date: 02/04/16 21:00:00 CDT, Duration: 30 day, Stop date: 03/05/16 9:00:00 CDTNotes: (Same as: Lopressor) No Longer Active 02/05/2016 [facility] Calcium Gluconate 2 gm, 100 mL, Route: IVPB, Drug form: INJ, PRN, Dosing Weight 95, kg, PRN Abnormal Lab Result, For NON-ICU Patients Only., Start date: 02/04/16 18:06:00 CDT, Duration: 30 day, Stop date: 03/05/16 18:05:00 CDTNotes: WASTE: F/P - Sink; E - Municipal Trash Bin No Longer Active 02/04/2016 [facility] potassium chloride 10 mEq, 100 mL, Route: IVPB, Drug form: INJ, PRN, Dosing Weight 95, kg, PRN Abnormal Lab Result, For NON-ICU Patients Only, Start date: 02/04/16 18:06:00 CDT, Duration: 30 day, Stop date: 03/05/16 18:05:00 CDTNotes: Infuse at a rate of 10 mEq/hr. (Same as: KCL) No Longer Active 02/04/2016 [facility] potassium phosphate + Sodium Chloride 0.9% IV 250 mL 15 mmol, 5 mL, Route: IVPB, PRN, Dosing Weight 95, kg, PRN Abnormal Lab Result, For NON-ICU Patients Only., Start date: 02/04/16 18:06:00 CDT, Duration: 30 day, Stop date: 03/05/16 18:05:00 CDTNotes: (Same as: K Phosphate.) 1 mMol phoshate has 1.47 mEq potassium Infuse over 4 hours No Longer Active 02/04/2016 [facility] sodium phosphate + Sodium Chloride 0.9% IV 250 mL 30 mmol, 10 mL, Route: IVPB, PRN, Dosing Weight 95, kg, PRN Abnormal Lab Result, For NON-ICU Patients Only., Start date: 02/04/16 18:06:00 CDT, Duration: 30 day, Stop date: 03/05/16 18:05:00 CDT No Longer Active 02/04/2016 [facility] potassium phosphate-sodium phosphate 250 mg-278 mg-164 mg oral powder 2 pkt, Route: PO, Drug Form: PDR/REC, Dosing Weight 95, kg, PRN, PRN Abnormal Lab Result, For NON-ICU Patients Only, Start date: 02/04/16 18:06:00 CDT, Duration: 30 day, Stop date: 03/05/16 18:05:00 CDTNotes: (Same as: Neutra- Phos) Each 1.25 gm pkt has 250mg phosphorous. Mix w/2.5oz water and stir. No Longer Active 02/04/2016 [facility] Magnesium Oxide 800 mg, 2 tab, Route: PO, Drug form: TAB, PRN, Dosing Weight 95, kg, PRN Abnormal Lab Result, For NON-ICU Patients Only., Start date: 02/04/16 18:06:00 CDT, Duration: 30 day, Stop date: 03/05/16 18:0 5:00 CDTNotes: (Same as: Mag-Ox 400) Magnesium oxide [id number] elemental magnesium Dose=____mg magnesium oxide (___mg elemental magnesium) No Longer Active 02/04/2016 [facility] Magnesium Sulfate 2 gm, 50 mL, Route: IVPB, Drug form: INJ, PRN, Dosing Weight 95, kg, PRN Abnormal Lab Result, For NON-ICU Patients Only., Start date: 02/04/16 18:06:00 CDT, Duration: 30 day, Stop date: 03/05/16 18:05:00 CDTNotes: WASTE: F/P - Sink; E - Municipal Trash Bin No Longer Active 02/04/2016 [facility] gentamicin + Sodium Chloride 0.9% IV 100 mL 360 mg, 9 mL, Route: IVPB, [id number], Start date: 02/04/16 16:00:00 CDT, Stop date: 03/03/16 8:00:00 CDTNotes: TIME CRITICAL MEDICATION (Same as Garamycin) No Longer Active 02/04/2016 [facility] Gentamicin Sulfate (INTERMEDIATE) 1 ea, Route: MISC, Dosing Weight 95, kg, ONCALL, Start date: 02/04/16 15:00:00 CDT, Duration: 1 doses or times, Pharmacy to dose Inactive 02/04/2016 [facility] Labetalol 20 mg, 4 mL, Route: IVP, Drug form: INJ, Q12H, Dosing Weight 95, kg, PRN Hypertension, Start date: 02/04/16 14:49:00 CDT, Duration: 30 day, Stop date: 03/05/16 14:48:00 CDTNotes: (Same as: Normodyne, Tr andate) Push over 2 minutes Give bolus over 2-3 minutes. No Longer Active 02/04/2016 [facility] Doxazosin 1 mg, 0.5 tab, Route: PO, Drug form: TAB, Daily, Dosing Weight 95, kg, Start date: 02/04/16 9:00:00 CDT, Duration: 30 day, Stop date: 03/04/16 9:00:00 CDTNotes: (Same as: Cardura) No Longer Active 02/04/2016 [facility] potassium phosphate + Sodium Chloride 0.9% IV 250 mL 30 mmol, 10 mL, Route: IVPB, ONCE, Dosing Weight 95, kg, Start date: 02/04/16 7:36:00 CDT, Stop date: 02/04/16 7:36:00 CDTNotes: (Same as: K Phosphate.) 1 mMol phoshate has 1.47 mEq potassium Infuse over 4 hours Inactive 02/04/2016 [facility] sodium phosphate 15 mmol, Route: IVPB, PRN, Dosing Weight 95, kg, PRN Abnormal Lab Result, Start date: 02/04/16 7:36:00 CDT, Duration: 30 day, Stop date: 03/05/16 7:35:00 CDT Inactive 02/04/2016 [facility] sodium phosphate + Sodium Chloride 0.9% IV 250 mL 15 mmol, 5 mL, Route: IVPB, PRN, Dosing Weight 95, kg, PRN Abnormal Lab Result, Start date: 02/04/16 7:20:00 CDT, Duration: 30 day, Stop date: 03/05/16 7:19:00 CDT No Longer Active 02/04/2016 [facility] potassium phosphate + Sodium Chloride 0.9% IV 250 mL 30 mmol, 10 mL, Route: IVPB, ONCE, Dosing Weight 95, kg, Priority: NOW, Start date: 02/03/16 11:39:00 CDT, Stop date: 02/03/16 11:39:00 CDTNotes: (Same as: K Phosphate.) 1 mMol phoshate has 1.47 mEq potassium Infuse over 4 hours Inactive 02/03/2016 [facility] tramadol hydrochloride 50 MG Oral Tablet 50 mg=1 tab, PO, Q8H, PRN Pain Score 6-10, 0 Refill(s) Active 02/03/2016 [facility] Metformin 1,000 mg, PO, TID, 0 Refill(s) No Longer Active 02/03/2016 [facility] Amlodipine 10 mg, PO, Daily, 0 Refill(s) Active 02/03/2016 [facility] acyclovir 200 mg oral capsule 200 mg=1 cap, PO, Daily, PRN infection, 0 Refill(s) Active 02/03/2016 [facility] benzonatate 100 mg oral capsule 100 mg=1 cap, PO, TID, 0 Refill(s) Active 02/03/2016 [facility] nitrofurantoin 100 mg, PO, BID, # 14 cap, 0 Refill(s) No Longer Active 02/03/2016 [facility] meclizine 25 mg oral tablet 25 mg=1 tab, PO, TID, PRN Nausea, 0 Refill(s) Active 02/03/2016 [facility] doxazosin 1 mg oral tablet 1 mg=1 tab, PO, Daily, every evening, 0 Refill(s) Active 02/03/2016 [facility] Hydrochlorothiazide 25 mg, PO, Daily, 0 Refill(s) No Longer Active 02/03/2016 [facility] lisinopril 40 mg oral tablet 40 mg=1 tab, PO, Daily, 0 Refill(s) No Longer Active 02/03/2016 [facility] testosterone 200 mg/mL intramuscular solution 200 mg=1 ml, IM, q2wk, 0 Refill(s) No Longer Active 02/03/2016 [facility] Ibuprofen 200 mg, 0 Refill(s) No Longer Active 02/03/2016 [facility] heparin 5,000 unit, 1 mL, Route: SUB-Q, Drug form: INJ, Q12H, Dosing Weight 95, kg, Start date: 02/02/16 21:00:00 CDT, Duration: 30 day, Stop date: 03/03/16 9:00:00 CDTNotes: porcine heparin No Longer Active 02/03/2016 [facility] Zosyn 3.375 gm, Route: IV, ABXQ8H, Dosing Weight 95, kg, Start date: 02/02/16 18:00:00 CDT, Duration: 30 day, Stop date: 03/03/16 10:00:00 CDTNotes: (Same as: Zosyn) Dosing based on Piperacillin component MEDICATION WASTE Product Size: 3375 mg Product Wasted: 0 mg No Longer Active 02/02/2016 [facility] Acetaminophen 325 MG / Hydrocodone Bitartrate 5 MG Oral Tablet [[place] 5/325] 1 tab, Route: PO, Drug Form: TAB, Dosing Weight 95, kg, Q6H, PRN Pain Score 1-3, Start date: 02/02/16 17:50:00 CDT, Duration: 30 day, Stop date: 03/03/16 17:49:00 CDTNotes: (Same as: [place] 325/5) Do not exceed 4gm/day of acetaminophen. No Longer Active 02/02/2016 [facility] Amlodipine 10 mg, 2 tab, Route: PO, Drug form: TAB, Daily, Dosing Weight 95, kg, Start date: 02/02/16 17:00:00 CDT, Duration: 30 day, Stop date: 03/03/16 9:00:00 CDTNotes: (Same as: Norvasc) No Longer Active 02/02/2016 [facility] Saline Flush 0.9% 10 ml, Route: IVP, Drug Form: INJ, Dosing Weight 95, kg, PRN, PRN Line Flush, Start date: 02/02/16 16:28:00 CDT, Duration: 30 day, Stop date: 03/03/16 16:27:00 CDTNotes: (Same as: BD Posiflush) No Longer Active 02/02/2016 [facility] Sodium Chloride 0.0769 MEQ/ML Injectable Solution 1,000 mL, Rate: 75 ml/hr, Infuse over: 13.3 hr, Route: IV, Dosing Weight 95 kg, Total Volume: 1,000, Start date: 02/02/16 16:28:00 CDT, Stop date: 03/03/16 16:27:00 CDT No Longer Active 02/02/2016 [facility] Acetaminophen 650 mg, 2 tab, Route: PO, Drug form: TAB, Q4H, Dosing Weight 95, kg, PRN Pain 1-3/Temp > 100.4 F, Start date: 02/02/16 16:28:00 CDT, Duration: 30 day, Stop date: 03/03/16 16:27:00 CDTNotes: Do not ex ceed 4 gm/day. (Same as: Tylenol) No Longer Active 02/02/2016 [facility] Docusate 100 mg, 1 cap, Route: PO, Drug form: CAP, BID, Dosing Weight 95, kg, PRN Constipation, Start date: 02/02/16 16:28:00 CDT, Duration: 30 day, Stop date: 03/03/16 16:27:00 CDTNotes: (Same as: Colace) (Do Not Crush) No Longer Active 02/02/2016 [facility] Ondansetron 4 mg, 2 mL, Route: IVP, Drug form: INJ, Q6H, Dosing Weight 95, kg, PRN Nausea & Vomiting, Start date: 02/02/16 16:28:00 CDT, Duration: 30 day, Stop date: 03/03/16 16:27:00 CDTNotes: (Same as: Zofran) MEDICATION WASTE Product Size: 4 mg Product Wasted: 0 mg No Longer Active 02/02/2016 [facility] Sodium Chloride 0.154 MEQ/ML Injectable Solution 1,000 mL, 1,000 ml/hr, Infuse Over: 1 hr, Route: IV, 1,000, Drug form: INJ, ONCE, Priority: STAT, Dosing Weight 95 kg, Start date: 02/02/16 14:06:00 CDT, Duration: 1 doses or times, Stop date: 02/02/16 14:06:00 CDT Inactive 02/02/2016 [facility] Tylenol 650 mg, 2 tab, Route: PO, Drug form: TAB, ONCE, Dosing Weight 95, kg, Priority: STAT, Start date: 02/02/16 13:00:00 CDT, Stop date: 02/02/16 13:00:00 CDTNotes: Do not exceed 4 gm/day. (Same as: Tylenol) Inactive 02/02/2016 [facility] Sodium Chloride 0.154 MEQ/ML Injectable Solution 1,000 mL, 1,000 ml/hr, Infuse Over: 1 hr, Route: IV, 1,000, Drug form: INJ, ONCE, Priority: STAT, Dosing Weight 95 kg, Start date: 02/02/16 13:00:00 CDT, Duration: 1 doses or times, Stop date: 02/02/16 13:00:00 CDT Inactive 02/02/2016 [facility] Rocephin 1 gm, Route: IVPB, ONCE, Dosing Weight 95, kg, Priority: STAT, Start date: 02/02/16 12:59:00 CDT, Stop date: 02/02/16 12:59:00 CDTNotes: (Same As: Rocephin). Use with 100 mL NS and infuse over 30 min MEDICATION WASTE Product Size: 1000 mg Product Wasted: 0 mg Inactive 02/02/2016 [facility] Allergies, Adverse Reactions, Alerts Substance Category Reaction Severity Reaction type Status Date Reported Comments Source ciprofloxacin Assertion Drug allergy Active [facility] [place] Immunizations Immunization Date Given Site Status Last Updated Comments Source Results Order Name Results Value Reference Range Date Interpretation Comments Source Chest 2 views DX Chest 2 views DX EXAM: Chest 2 views DX HISTORY: - pleural effusion, CHF COMPARISON: 12/07/2018 Normal heart size. Basilar atelectatic changes. No effusion or pneumothorax. Mild discogenic degenerative changes are noted. IMPRESSION: No effusion at this time. 12/21/2018 - - Read by: Tom Story MD Dictated Date/time: 12/21/18 09:41 Electronically Signed by: Tom Story MD 12/21/18 09:42 FINAL REPORT [facility] Chest 2 views DX Chest 2 views [...] Ilya Dent MD 01/09/18 11:53 FINAL REPORT [facility] Carotid artery Doppler bilat US Carotid [...] Evelio Ivan MD 12/28/17 11:13 FINAL REPORT [facility] Retroperitoneal Complete US Retroperitoneal Complete US [...] Evelio Ivan MD 12/28/17 11:08 FINAL REPORT [facility] Spine lumbar 2 or 3 views [...] Terry Choudhury MD 12/27/17 10:34 FINAL REPORT [facility] [place] Elbow 3 views DX Elbow 3 views [...] Tim Berry MD 11/29/17 09:35 FINAL REPORT [facility] Knee 1-2 Views unilateral DX Knee [...] Tim Berry MD 11/29/17 09:32 FINAL REPORT [facility] ELECTROLYTES AGAP 12.5 meq/L 10.0 - 20.0 11/22/2016 [facility] ELECTROLYTES eGFR 71 mL/min/1.73m2 11/22/2016 Result Comment: [...] should be multiplied by the estimated BMI. [facility] ELECTROLYTES BUN 16 mg/dL 7 - 22 11/22/2016 [facility] ELECTROLYTES Creatinine Lvl 0.99 mg/dL 0.50 - 1.40 11/22/2016 [facility] ELECTROLYTES Glucose Lvl 120 mg/dL 70 - 99 11/22/2016 [facility] ELECTROLYTES Sodium Lvl 133 meq/L 135 - 145 11/22/2016 [facility] ELECTROLYTES Potassium Lvl 3.5 meq/L 3.5 - 5.1 11/22/2016 [facility] ELECTROLYTES Chloride Lvl 98 meq/L 95 - 109 11/22/2016 [facility] ELECTROLYTES CO2 26 meq/L 24 - 32 11/22/2016 [facility] ELECTROLYTES Calcium Lvl 8.7 mg/dL 8.5 - 10.5 11/22/2016 [facility] HEMATOLOGY Segs-Bands # 3.2 K/CMM 1.5 - 8.1 11/22/2016 [facility] HEMATOLOGY Monocytes # 0.4 K/CMM 0.0 - 0.8 11/22/2016 [facility] HEMATOLOGY Lymphocytes # 1.8 K/CMM 1.0 - 5.5 11/22/2016 [facility] [facility] Plt Morph Normal (11/22/16 3:45 AM) 11/22/2016 [facility] RBC Morph Normal (11/22/16 3:45 AM) 11/22/2016 [facility] Segs 59.2 % 45.0 - 75.0 11/22/2016 [facility] Lymphocytes 32.0 % 20.0 - 40.0 11/22/2016 [facility] HEMATOLOGY Eosinophils 0.3 % 0.0 - 4.0 11/22/2016 [facility] Monocytes 8.1 % 2.0 - 12.0 11/22/2016 [facility] HEMATOLOGY Basophils 0.4 % 0.0 - 1.0 11/22/2016 [facility] MCHC 34.4 g/dL 32.0 - 36.0 11/22/2016 [facility] MCH 28.0 pg 27.0 - 31.0 11/22/2016 [facility] RDW 15.2 % 11.5 - 14.5 11/22/2016 [facility] Platelet 215 K/CMM 133 - 450 11/22/2016 [facility] MPV 8.4 fL 7.4 - 10.4 11/22/2016 [facility] Hct 35.9 % 42.0 - 54.0 11/22/2016 [facility] MCV 81.3 fL 80.0 - 94.0 11/22/2016 [facility] Hgb 12.3 g/dL 14.0 - 18.0 11/22/2016 [facility] RBC 4.41 M/CMM 4.70 - 6.10 11/22/2016 [facility] HEMATOLOGY WBC 5.5 K/CMM 3.7 - 10.4 11/22/2016 [facility] CHEM PANEL eGFR 76 mL/min/1.73m2 11/21/2016 Result [...] should be multiplied by the estimated BMI. [facility] CHEM PANEL CO2 27 meq/L 24 - 32 11/21/2016 [facility] CHEM PANEL Chloride Lvl 98 meq/L 95 - 109 11/21/2016 [facility] CHEM PANEL AGAP 12.7 meq/L 10.0 - 20.0 11/21/2016 [facility] CHEM PANEL Calcium Lvl 8.5 mg/dL 8.5 - 10.5 11/21/2016 [facility] CHEM PANEL Glucose Lvl 126 mg/dL 70 - 99 11/21/2016 [facility] CHEM PANEL BUN 13 mg/dL 7 - 22 11/21/2016 [facility] CHEM PANEL Creatinine Lvl 0.94 mg/dL 0.50 - 1.40 11/21/2016 [facility] CHEM PANEL Potassium Lvl 3.7 meq/L 3.5 - 5.1 11/21/2016 [facility] CHEM PANEL Sodium Lvl 134 meq/L 135 - 145 11/21/2016 [facility] Hgb 12.8 g/dL 14.0 - 18.0 11/21/2016 [facility] Hct 37.4 % 42.0 - 54.0 11/21/2016 [facility] MCV 82.2 fL 80.0 - 94.0 11/21/2016 [facility] MCH 28.1 pg 27.0 - 31.0 11/21/2016 [facility] RBC 4.55 M/CMM 4.70 - 6.10 11/21/2016 [facility] WBC 3.5 K/CMM 3.7 - 10.4 11/21/2016 [facility] Platelet 205 K/CMM 133 - 450 11/21/2016 [facility] RDW 15.5 % 11.5 - 14.5 11/21/2016 [facility] MPV 8.7 fL 7.4 - 10.4 11/21/2016 [facility] MCHC 34.1 g/dL 32.0 - 36.0 11/21/2016 [facility] Segs-Bands # 2.0 K/CMM 1.5 - 8.1 11/21/2016 [facility] Monocytes 9.8 % 2.0 - 12.0 11/21/2016 [facility] Eosinophils 0.2 % 0.0 - 4.0 11/21/2016 [facility] Basophils 0.9 % 0.0 - 1.0 11/21/2016 [facility] Lymphocytes 32.7 % 20.0 - 40.0 11/21/2016 [facility] Segs 56.4 % 45.0 - 75.0 11/21/2016 [facility] Monocytes # 0.3 K/CMM 0.0 - 0.8 11/21/2016 [facility] Lymphocytes # 1.1 K/CMM 1.0 - 5.5 11/21/2016 [facility] ELECTROLYTES CO2 28 meq/L 24 - 32 11/20/2016 [facility] ELECTROLYTES Calcium Lvl 8.9 mg/dL 8.5 - 10.5 11/20/2016 [facility] ELECTROLYTES AGAP 12.8 meq/L 10.0 - 20.0 11/20/2016 [facility] ELECTROLYTES eGFR 56 mL/min/1.73m2 11/20/2016 Result Comment: The [...] should be multiplied by the estimated BMI. [facility] ELECTROLYTES Chloride Lvl 96 meq/L 95 - 109 11/20/2016 [facility] ELECTROLYTES Sodium Lvl 133 meq/L 135 - 145 11/20/2016 [facility] ELECTROLYTES Potassium Lvl 3.8 meq/L 3.5 - 5.1 11/20/2016 [facility] ELECTROLYTES Glucose Lvl 198 mg/dL 70 - 99 11/20/2016 [facility] ELECTROLYTES BUN 14 mg/dL 7 - 22 11/20/2016 [facility] ELECTROLYTES Creatinine Lvl 1.20 mg/dL 0.50 - 1.40 11/20/2016 [facility] CHEM PANEL Phosphorus 2.4 mg/dL 2.5 - 4.5 11/20/2016 [facility] CHEM PANEL Phosphorus 2.6 mg/dL 2.5 - 4.5 11/20/2016 [facility] CHEM PANEL Magnesium Lvl 2.1 mg/dL 1.8 - 2.4 11/20/2016 [facility] CARDIAC ENZYMES Total CK 418 unit/L 12 - 191 11/19/2016 [facility] CARDIAC ENZYMES Troponin-I null 0.00 - 0.40 11/19/2016 [facility] CARDIAC ENZYMES CK MB Index 0.8 0.0 - 2.5 11/19/2016 [facility] CARDIAC ENZYMES CK MB 3.3 ng/mL 0.5 - 3.6 11/19/2016 [facility] CHEM PANEL Phosphorus 2.9 mg/dL 2.5 - 4.5 11/19/2016 [facility] CHEM PANEL Magnesium Lvl 2.2 mg/dL 1.8 - 2.4 11/19/2016 [facility] URINE AND STOOL UA Color Ltyellow 11/19/2016 [facility] URINE AND STOOL UA Urobilinogen <=1.0 mg/dL 0.1 - 1.0 11/19/2016 [facility] URINE AND STOOL UA Sq Epi None Seen 11/19/2016 [facility] URINE AND STOOL UA Nitrite Negative (11/19/16 1:27 PM) Negative 11/19/2016 [facility] URINE AND STOOL UA Leuk Est Negative (11/19/16 1:27 PM) Negative 11/19/2016 [facility] URINE AND STOOL UA Ketones Negative mg/dL Negative mg/dL 11/19/2016 [facility] URINE AND STOOL UA Bili Negative *NA* (11/19/16 1:27 PM) Negative 11/19/2016 [facility] URINE AND STOOL UA Blood Negative (11/19/16 1:27 PM) Negative 11/19/2016 [facility] URINE AND STOOL UA pH 6.0 5.0 - 8.0 11/19/2016 [facility] URINE AND STOOL UA Protein Negative mg/dL Negative mg/dL 11/19/2016 [facility] URINE AND STOOL UA Glucose Negative mg/dL Negative mg/dL 11/19/2016 [facility] URINE AND STOOL UA Turbidity Clear (11/19/16 1:27 PM) Clear 11/19/2016 [facility] URINE AND STOOL UA Spec Grav 1.011 <=1.030 11/19/2016 [facility] URINE AND STOOL UA WBC 1 /HPF 0 - 5 11/19/2016 [facility] URINE AND STOOL UA RBC null 0 - 2 11/19/2016 [facility] Monocytes # 0.3 K/CMM 0.0 - 0.8 11/19/2016 [facility] Lymphocytes # 1.1 K/CMM 1.0 - 5.5 11/19/2016 [facility] Segs-Bands # 3.4 K/CMM 1.5 - 8.1 11/19/2016 [facility] Eosinophils 0.1 % 0.0 - 4.0 11/19/2016 [facility] Monocytes 5.3 % 2.0 - 12.0 11/19/2016 [facility] Lymphocytes 23.7 % 20.0 - 40.0 11/19/2016 [facility] Basophils 0.8 % 0.0 - 1.0 11/19/2016 [facility] Segs 70.1 % 45.0 - 75.0 11/19/2016 [facility] Plt Morph Normal (11/19/16 1:20 PM) 11/19/2016 [facility] RBC Morph Normal (11/19/16 1:20 PM) 11/19/2016 [facility] MCV 81.1 fL 80.0 - 94.0 11/19/2016 [facility] Hgb 13.1 g/dL 14.0 - 18.0 11/19/2016 [facility] RDW 15.1 % 11.5 - 14.5 11/19/2016 [facility] MCHC 34.6 g/dL 32.0 - 36.0 11/19/2016 [facility] MCH 28.1 pg 27.0 - 31.0 11/19/2016 [facility] HEMATOLOGY Platelet 201 K/CMM 133 - 450 11/19/2016 [facility] HEMATOLOGY Hct 37.8 % 42.0 - 54.0 11/19/2016 [facility] HEMATOLOGY MPV 8.8 fL 7.4 - 10.4 11/19/2016 [facility] HEMATOLOGY WBC 4.8 K/CMM 3.7 - 10.4 11/19/2016 [facility] HEMATOLOGY RBC 4.66 M/CMM 4.70 - 6.10 11/19/2016 [facility] CARDIAC ENZYMES Total CK 405 unit/L 12 - 191 11/19/2016 [facility] CARDIAC ENZYMES CK MB 4.0 ng/mL 0.5 - 3.6 11/19/2016 [facility] CARDIAC ENZYMES CK MB Index 1.0 0.0 - 2.5 11/19/2016 [facility] CARDIAC ENZYMES Troponin-I null 0.00 - 0.40 11/19/2016 [facility] CARDIAC ENZYMES Total CK 402 unit/L 12 - 191 11/19/2016 [facility] CHEM PANEL Bili Total 0.7 mg/dL 0.2 - 1.3 11/19/2016 [facility] CHEM PANEL Globulin 3.5 g/dL 2.7 - 4.2 11/19/2016 [facility] CHEM PANEL Albumin Lvl 3.7 g/dL 3.5 - 5.0 11/19/2016 [facility] CHEM PANEL A/G Ratio 1.1 0.7 - 1.6 11/19/2016 [facility] CHEM PANEL Total Protein 7.2 g/dL 6.4 - 8.4 11/19/2016 [facility] CHEM PANEL AST 33 unit/L 0 - 37 11/19/2016 [facility] CHEM PANEL Alk Phos 114 unit/L 39 - 136 11/19/2016 [facility] CHEM PANEL ALT 25 unit/L 0 - 65 11/19/2016 [facility] CHEM PANEL B/C Ratio 12 6 - 25 11/19/2016 [facility] CHEM PANEL Magnesium Lvl 2.0 mg/dL 1.8 - 2.4 11/19/2016 [facility] HEMATOLOGY PTT 32.0 s 22.9 - 35.8 11/19/2016 [facility] HEMATOLOGY PT 13.8 s 12.0 - 14.7 11/19/2016 [facility] HEMATOLOGY INR 1.04 0.85 - 1.17 11/19/2016 [facility] Spine cervical 2 or 3 view DX Spine cervical 2 or 3 view DX Patient Name: ALEX RAZA : 1935; Age: 81 years Male MR: [id number] Study: Spine cervical 2 or 3 view DX 11/19/2016 2:18 PM [employer] CLINICAL INDICATION: Backache COMPARISON: None FINDINGS: Overall [...] degenerative change of the cervical spine. SL: [id number] 11/19/2016 - - Read by: Flower Cuenca MD Dictated Date/time: 11/19/16 17:35 Electronically Signed by: Flower Cuenca MD 11/19/16 17:36 FINAL REPORT [facility] Carotid artery Doppler bilat US Carotid artery [...] Hgb A1C 6.3 % <=5.6 % 02/12/2016 [facility] CHEM PANEL eGFR 67 mL/min/1.73m2 02/12/2016 Result [...] should be multiplied by the estimated BMI. [facility] CHEM PANEL Chloride Lvl 102 meq/L 95 - 109 02/12/2016 [facility] CHEM PANEL Calcium Lvl 9.1 mg/dL 8.5 - 10.5 02/12/2016 [facility] CHEM PANEL CO2 26 meq/L 24 - 32 02/12/2016 [facility] CHEM PANEL BUN 22 mg/dL 7 - 22 02/12/2016 [facility] CHEM PANEL Potassium Lvl 3.8 meq/L 3.5 - 5.1 02/12/2016 [facility] CHEM PANEL Sodium Lvl 136 meq/L 135 - 145 02/12/2016 [facility] CHEM PANEL Creatinine Lvl 1.05 mg/dL 0.50 - 1.40 02/12/2016 [facility] CHEM PANEL Glucose Lvl 120 mg/dL 70 - 99 02/12/2016 [facility] CHEM PANEL AGAP 11.8 meq/L 10.0 - 20.0 02/12/2016 [facility] CHEM PANEL Phosphorus 2.7 mg/dL 2.5 - 4.5 02/12/2016 [facility] CHEM PANEL Magnesium Lvl 2.3 mg/dL 1.8 - 2.4 02/12/2016 [facility] HEMATOLOGY Segs-Bands # 3.9 K/CMM 1.5 - 8.1 02/12/2016 [facility] HEMATOLOGY Basophils 0.5 % 0.0 - 1.0 02/12/2016 [facility] HEMATOLOGY Eosinophils 0.1 % 0.0 - 4.0 02/12/2016 [facility] HEMATOLOGY Segs 69.2 % 45.0 - 75.0 02/12/2016 [facility] HEMATOLOGY Lymphocytes # 1.2 K/CMM 1.0 - 5.5 02/12/2016 [facility] HEMATOLOGY Monocytes # 0.5 K/CMM 0.0 - 0.8 02/12/2016 [facility] HEMATOLOGY Monocytes 9.0 % 2.0 - 12.0 02/12/2016 [facility] HEMATOLOGY Lymphocytes 21.2 % 20.0 - 40.0 02/12/2016 [facility] HEMATOLOGY WBC 5.6 K/CMM 3.7 - 10.4 02/12/2016 [facility] HEMATOLOGY MPV 9.7 fL 7.4 - 10.4 02/12/2016 [facility] HEMATOLOGY RDW 16.2 % 11.5 - 14.5 02/12/2016 [facility] HEMATOLOGY Platelet 178 K/CMM 133 - 450 02/12/2016 [facility] MCH 26.5 pg 27.0 - 31.0 02/12/2016 [facility] MCHC 32.8 g/dL 32.0 - 36.0 02/12/2016 [facility] HEMATOLOGY MCV 80.7 fL 80.0 - 94.0 02/12/2016 [facility] HEMATOLOGY Hgb 11.9 g/dL 14.0 - 18.0 02/12/2016 [facility] Hct 36.1 % 42.0 - 54.0 02/12/2016 [facility] RBC 4.48 M/CMM 4.70 - 6.10 02/12/2016 [facility] CHEM PANEL Phosphorus 2.5 mg/dL 2.5 - 4.5 02/11/2016 [facility] CHEM PANEL Globulin 4.9 g/dL 2.0 - 4.0 02/11/2016 [facility] CHEM PANEL Albumin Lvl 3.2 g/dL 3.5 - 5.0 02/11/2016 [facility] CHEM PANEL Total Protein 8.1 g/dL 6.4 - 8.4 02/11/2016 [facility] CHEM PANEL A/G Ratio 0.7 0.7 - 1.6 02/11/2016 [facility] CHEM PANEL ALT 42 unit/L 0 - 65 02/11/2016 [facility] CHEM PANEL Alk Phos 106 unit/L 39 - 136 02/11/2016 [facility] CHEM PANEL AST 49 unit/L 0 - 37 02/11/2016 [facility] CHEM PANEL Bili Indirect 0.5 mg/dL 0.0 - 1.0 02/11/2016 [facility] CHEM PANEL Bili Total 0.6 mg/dL 0.2 - 1.3 02/11/2016 [facility] CHEM PANEL Bili Direct 0.1 mg/dL 0.0 - 0.3 02/11/2016 [facility] CHEM PANEL Magnesium Lvl 2.4 mg/dL 1.8 - 2.4 02/11/2016 [facility] CHEM PANEL eGFR 60 mL/min/1.73m2 02/11/2016 Result [...] should be multiplied by the estimated BMI. [facility] CHEM PANEL Calcium Lvl 9.6 mg/dL 8.5 - 10.5 02/11/2016 [facility] CHEM PANEL CO2 24 meq/L 24 - 32 02/11/2016 [facility] CHEM PANEL AGAP 11.5 meq/L 10.0 - 20.0 02/11/2016 [facility] CHEM PANEL Creatinine Lvl 1.14 mg/dL 0.50 - 1.40 02/11/2016 [facility] CHEM PANEL BUN 21 mg/dL 7 - 22 02/11/2016 [facility] CHEM PANEL Glucose Lvl 124 mg/dL 70 - 99 02/11/2016 [facility] CHEM PANEL Potassium Lvl 4.5 meq/L 3.5 - 5.1 02/11/2016 [facility] CHEM PANEL Chloride Lvl 101 meq/L 95 - 109 02/11/2016 [facility] CHEM PANEL Sodium Lvl 132 meq/L 135 - 145 02/11/2016 [facility] HEMATOLOGY Plt Morph Normal (02/11/16 10:54 AM) 02/11/2016 [facility] HEMATOLOGY Segs 69.3 % 45.0 - 75.0 02/11/2016 [facility] RBC Morph Normal (02/11/16 10:54 AM) 02/11/2016 [facility] HEMATOLOGY Large Plt Moderate *ABN* (02/11/16 10:54 AM) None Seen 02/11/2016 [facility] Monocytes # 0.5 K/CMM 0.0 - 0.8 02/11/2016 [facility] Lymphocytes # 1.4 K/CMM 1.0 - 5.5 02/11/2016 [facility] Segs-Bands # 4.4 K/CMM 1.5 - 8.1 02/11/2016 [facility] Eosinophils 0.3 % 0.0 - 4.0 02/11/2016 [facility] Monocytes 7.1 % 2.0 - 12.0 02/11/2016 [facility] Lymphocytes 22.8 % 20.0 - 40.0 02/11/2016 [facility] Basophils 0.5 % 0.0 - 1.0 02/11/2016 [facility] MCH 27.3 pg 27.0 - 31.0 02/11/2016 [facility] Hct 40.7 % 42.0 - 54.0 02/11/2016 [facility] Hgb 13.8 g/dL 14.0 - 18.0 02/11/2016 [facility] MPV 10.1 fL 7.4 - 10.4 02/11/2016 [facility] Platelet 160 K/CMM 133 - 450 02/11/2016 [facility] RDW 16.5 % 11.5 - 14.5 02/11/2016 [facility] MCHC 33.8 g/dL 32.0 - 36.0 02/11/2016 [facility] MCV 80.6 fL 80.0 - 94.0 02/11/2016 [facility] WBC 6.4 K/CMM 3.7 - 10.4 02/11/2016 [facility] RBC 5.05 M/CMM 4.70 - 6.10 02/11/2016 [facility] IMMUNOLOGY C-REACTIVE PROTEIN 17.0 mg/L <=2.9 mg/L 02/11/2016 [facility] Chest 1view DX Chest 1view DX Clinical [...] distal tip overlying the right atrium. SL: [id number] 02/10/2016 - - Read by: Tayo Gonzalez MD Dictated Date/time: 02/10/16 16:36 Electronically Signed by: Tayo Gonzalez MD 02/10/16 16:41 FINAL REPORT [facility] CHEM PANEL Magnesium Lvl 2.3 mg/dL 1.8 - 2.4 02/09/2016 [facility] HEMATOLOGY INR 0.96 0.85 - 1.17 02/08/2016 [facility] HEMATOLOGY PT 13.1 s 12.0 - 14.7 02/08/2016 [facility] Testosterone Tot 136 ng/dL 250 - 1100 02/08/2016 Result Comment: Males: Men with clinically significant hypogonadal symptoms and testosterone values repeatedly in the range of the 200-300 ng/dL or less, may benefit from testosterone treatment after adequate risk and benefits counseling. [facility] Testosterone Free 16.1 pg/mL 30.0 - 135.0 02/08/2016 Result Comment: Test Performed at: [facility], [address] [place] [id number] Harish Lafleur MD, FCAP [facility] ELECTROLYTES AGAP 9.7 meq/L 10.0 - 20.0 02/08/2016 [facility] ELECTROLYTES eGFR 81 mL/min/1.73m2 02/08/2016 Result Comment: [...] should be multiplied by the estimated BMI. [facility] ELECTROLYTES Sodium Lvl 137 meq/L 135 - 145 02/08/2016 [facility] ELECTROLYTES Chloride Lvl 103 meq/L 95 - 109 02/08/2016 [facility] ELECTROLYTES Potassium Lvl 3.7 meq/L 3.5 - 5.1 02/08/2016 [facility] ELECTROLYTES CO2 28 meq/L 24 - 32 02/08/2016 [facility] ELECTROLYTES Calcium Lvl 9.1 mg/dL 8.5 - 10.5 02/08/2016 [facility] ELECTROLYTES Creatinine Lvl 0.88 mg/dL 0.50 - 1.40 02/08/2016 [facility] ELECTROLYTES Glucose Lvl 126 mg/dL 70 - 99 02/08/2016 [facility] ELECTROLYTES BUN 13 mg/dL 7 - 22 02/08/2016 [facility] HEMATOLOGY Segs 66.5 % 45.0 - 75.0 02/08/2016 [facility] RBC Morph Normal (02/08/16 8:35 AM) 02/08/2016 [facility] HEMATOLOGY Large Plt Moderate *ABN* (02/08/16 8:35 AM) None Seen 02/08/2016 [facility] Monocytes # 0.5 K/CMM 0.0 - 0.8 02/08/2016 [facility] Monocytes 12.5 % 2.0 - 12.0 02/08/2016 [facility] Lymphocytes 20.4 % 20.0 - 40.0 02/08/2016 [facility] Lymphocytes # 0.8 K/CMM 1.0 - 5.5 02/08/2016 [facility] Segs-Bands # 2.6 K/CMM 1.5 - 8.1 02/08/2016 [facility] HEMATOLOGY Basophils 0.5 % 0.0 - 1.0 02/08/2016 [facility] HEMATOLOGY Eosinophils 0.1 % 0.0 - 4.0 02/08/2016 [facility] RDW 16.4 % 11.5 - 14.5 02/08/2016 [facility] MCHC 33.2 g/dL 32.0 - 36.0 02/08/2016 [facility] MCH 26.9 pg 27.0 - 31.0 02/08/2016 [facility] MCV 80.9 fL 80.0 - 94.0 02/08/2016 [facility] Platelet 165 K/CMM 133 - 450 02/08/2016 [facility] MPV 9.1 fL 7.4 - 10.4 02/08/2016 [facility] HEMATOLOGY Hct 37.3 % 42.0 - 54.0 02/08/2016 [facility] HEMATOLOGY Hgb 12.4 g/dL 14.0 - 18.0 02/08/2016 [facility] RBC 4.61 M/CMM 4.70 - 6.10 02/08/2016 [facility] HEMATOLOGY WBC 3.9 K/CMM 3.7 - 10.4 02/08/2016 [facility] CHEM PANEL Procalcitonin Lvl 0.19 ng/mL 0.00 - 0.10 02/08/2016 [facility] TOXICOLOGY Gent Lvl 0.7 ug/ml 02/08/2016 [facility] CHEM PANEL Phosphorus 2.6 mg/dL 2.5 - 4.5 02/07/2016 [facility] Pelvis w/wo contrast MRI Pelvis w/wo contrast [...] 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 SL: [id number] 02/06/2016 - - Read by: Chet Pardo MD Dictated Date/time: 02/06/16 12:38 Electronically Signed by: Chet Pardo MD 02/06/16 12:54 FINAL REPORT [facility] CARDIAC ENZYMES CK MB 1.3 ng/mL 0.5 - 3.6 02/06/2016 [facility] CARDIAC ENZYMES CK MB Index 0.4 0.0 - 2.5 02/06/2016 [facility] CARDIAC ENZYMES Troponin-I 0.02 ng/mL 0.00 - 0.40 02/06/2016 [facility] CARDIAC ENZYMES Total CK 346 unit/L 12 - 191 02/06/2016 [facility] CARDIAC ENZYMES CK MB Index 0.3 0.0 - 2.5 02/05/2016 [facility] CARDIAC ENZYMES CK MB 1.3 ng/mL 0.5 - 3.6 02/05/2016 [facility] CARDIAC ENZYMES Troponin-I null 0.00 - 0.40 02/05/2016 [facility] CARDIAC ENZYMES Total CK 384 unit/L 12 - 191 02/05/2016 [facility] TOXICOLOGY Gent Tr 0.3 ug/ml 02/05/2016 [facility] TOXICOLOGY Gent Tr TND see MAR 02/05/2016 [facility] CARDIAC ENZYMES BNP 213 pg/mL <=100 pg/mL 02/05/2016 [facility] CHEM PANEL Procalcitonin Lvl 0.83 ng/mL 0.00 - 0.10 02/05/2016 [facility] CHEM PANEL B/C Ratio 11 6 - 25 02/03/2016 [facility] CHEM PANEL A/G Ratio 0.7 0.7 - 1.6 02/03/2016 [facility] CHEM PANEL Globulin 4.0 g/dL 2.0 - 4.0 02/03/2016 [facility] CHEM PANEL AST 28 unit/L 0 - 37 02/03/2016 [facility] CHEM PANEL Bili Total 1.1 mg/dL 0.2 - 1.3 02/03/2016 [facility] CHEM PANEL Alk Phos 112 unit/L 39 - 136 02/03/2016 [facility] CHEM PANEL ALT 15 unit/L 0 - 65 02/03/2016 [facility] CHEM PANEL Albumin Lvl 2.9 g/dL 3.5 - 5.0 02/03/2016 [facility] CHEM PANEL Total Protein 6.9 g/dL 6.4 - 8.4 02/03/2016 [facility] HEMATOLOGY Basophils # 0.2 K/CMM 0.0 - 0.2 02/03/2016 [facility] HEMATOLOGY PTT 36.9 s 22.9 - 35.8 02/03/2016 [facility] SPECIAL CHEMISTRY Free PSA/PSA 43.6 % >=25.0 % 02/03/2016 [facility] SPECIAL CHEMISTRY PSA Free 19.16 ng/mL 02/03/2016 [facility] SPECIAL CHEMISTRY PSA 43.9 ng/mL 0.0 - 4.0 02/03/2016 [facility] CHEM PANEL Lactic Acid Lvl 2.0 mMol/L 0.5 - 2.2 02/02/2016 [facility] CHEM PANEL Procalcitonin Lvl 0.40 ng/mL 0.00 - 0.10 02/02/2016 [facility] URINE AND STOOL UA Leuk Est Trace *ABN* (02/02/16 2:06 PM) Negative 02/02/2016 [facility] URINE AND STOOL UA pH 6.5 5.0 - 8.0 02/02/2016 [facility] URINE AND STOOL UA Protein 100 mg/dL Negative mg/dL 02/02/2016 [facility] URINE AND STOOL UA Bili Small *ABN* (02/02/16 2:06 PM) Negative 02/02/2016 [facility] URINE AND STOOL UA Blood Large *ABN* (02/02/16 2:06 PM) Negative 02/02/2016 [facility] URINE AND STOOL UA Glucose 100 mg/dL Negative mg/dL 02/02/2016 [facility] URINE AND STOOL UA Ketones 15 mg/dL Negative mg/dL 02/02/2016 [facility] URINE AND STOOL UA Urobilinogen 1.0 EU/dL 0.1 - 1.0 02/02/2016 [facility] URINE AND STOOL UA Nitrite Positive *ABN* (02/02/16 2:06 PM) Negative 02/02/2016 [facility] URINE AND STOOL UA Spec Grav 1.020 <=1.030 02/02/2016 [facility] URINE AND STOOL UA Color [place] *ABN* (02/02/16 2:06 PM) Yellow 02/02/2016 [facility] URINE AND STOOL UA Turbidity Cloudy *ABN* (02/02/16 2:06 PM) Clear 02/02/2016 [facility] URINE AND STOOL UA RBC >100 /HPF 0 - 2 02/02/2016 [facility] URINE AND STOOL UA WBC 3-5 /HPF None Seen /HPF 02/02/2016 [facility] URINE AND STOOL Micro? Performed (02/02/16 2:06 PM) 02/02/2016 [facility] URINE AND STOOL UA Sq Epi Rare /LPF Few /LPF 02/02/2016 [facility] URINE AND STOOL UA Bacteria Moderate /HPF None Seen /HPF 02/02/2016 [facility] CHEM PANEL Total Protein 8.3 g/dL 6.4 - 8.4 02/02/2016 [facility] CHEM PANEL Albumin Lvl 3.8 g/dL 3.5 - 5.0 02/02/2016 [facility] CHEM PANEL ALT 18 unit/L 0 - 65 02/02/2016 [facility] CHEM PANEL Alk Phos 113 unit/L 39 - 136 02/02/2016 [facility] CHEM PANEL Bili Total 1.5 mg/dL 0.2 - 1.3 02/02/2016 [facility] CHEM PANEL AST 25 unit/L 0 - 37 02/02/2016 [facility] CHEM PANEL B/C Ratio 10 6 - 25 02/02/2016 [facility] CHEM PANEL Globulin 4.5 g/dL 2.0 - 4.0 02/02/2016 [facility] CHEM PANEL A/G Ratio 0.8 0.7 - 1.6 02/02/2016 [facility] CARDIAC ENZYMES Total CK 532 unit/L 12 - 191 02/02/2016 [facility] CARDIAC ENZYMES CK MB Index 0.4 0.0 - 2.5 02/02/2016 [facility] CARDIAC ENZYMES CK MB 2.0 ng/mL 0.5 - 3.6 02/02/2016 [facility] CARDIAC ENZYMES Troponin-I null 0.00 - 0.40 02/02/2016 [facility] HEMATOLOGY Basophils # 0.1 K/CMM 0.0 - 0.2 02/02/2016 [facility] Renal Stone CT Renal Stone CT Clinical [...] correlation for prostatitis may be helpful. SL: [id number] 02/02/2016 - - Read by: Martin Almanza MD Dictated Date/time: 02/02/16 13:52 Electronically Signed by: Martin Almanza MD 02/02/16 14:04 FINAL REPORT [facility] Vital Signs Vital Sign Value Date Comments Source Respitory Rate 16 11/22/2016 [facility] Heart Rate 87 11/22/2016 [facility] Systolic (mm Hg) 161 11/22/2016 [facility] Diastolic (mm Hg) 95 11/22/2016 [facility] Temperature Oral (F) 98.7 F 11/22/2016 [facility] Systolic (mm Hg) 149 11/22/2016 [facility] Diastolic (mm Hg) 75 11/22/2016 [facility] Heart Rate 92 11/22/2016 [facility] Respitory Rate 17 11/22/2016 [facility] Temperature Oral (F) 98.8 F 11/22/2016 [facility] Temperature Oral (F) 98.3 F 11/22/2016 [facility] Respitory Rate 18 11/22/2016 [facility] Systolic (mm Hg) 168 11/22/2016 [facility] Diastolic (mm Hg) 97 11/22/2016 [facility] Heart Rate 90 11/22/2016 [facility] Weight 217 11/19/2016 [facility] BMI Calculated 77.22 11/19/2016 [facility] Height 167.64 cm 11/19/2016 [facility] Respitory Rate 18 02/12/2016 [facility] Temperature Oral (F) 98.3 F 02/12/2016 [facility] Heart Rate 73 02/12/2016 [facility] Systolic (mm Hg) 138 02/12/2016 [facility] Diastolic (mm Hg) 83 02/12/2016 [facility] Heart Rate 72 02/12/2016 [facility] Rate 18 02/12/2016 [facility] Temperature Oral (F) 97.8 F 02/12/2016 [facility] Systolic (mm Hg) 147 02/12/2016 [facility] Diastolic (mm Hg) 85 02/12/2016 [facility] Systolic (mm Hg) 119 02/12/2016 [facility] Diastolic (mm Hg) 73 02/12/2016 [facility] Temperature Oral (F) 98.4 F 02/12/2016 [facility] Heart Rate 83 02/12/2016 [facility] Respitory Rate 18 02/12/2016 [facility] Weight 95 02/02/2016 [facility] BMI Calculated 32.8 02/02/2016 [facility] Height 170.18 cm 02/02/2016 [facility] Encounters Location Location Details Encounter Type Encounter Number Reason For Visit Attending Provider ADM Date DC Date Status Source [facility] Inpatient [id number] Lul[place]on Logan 02/02/2016 02/12/2016 [facility] [place] [facility] [id number] Dillan Frankel Jr 06/17/2016 06/18/2016 [facility] [place] [facility] Inpatient [id number] [place] 11/19/2016 11/22/2016 [facility] [place] [facility] [id number] Eladio Saini 11/29/2017 11/30/2017 [facility] [place] [facility] [place] [facility] [id number] Eladio Saini 12/26/2017 12/27/2017 [facility] [place] [facility] [place] [facility] [id number] Eladio Saini 12/28/2017 12/29/2017 [facility] [place] [facility] [place] [facility] [id number] Eladio Saini 01/09/2018 01/10/2018 [facility] [place] [facility] [place] [facility] [id number] Eladio Saini 12/07/2018 12/08/2018 [facility] [place] [facility] [place] [facility] [id number] Eladio Saini 12/21/2018 12/22/2018 [facility] [place] Procedures Procedure Code Date Perfomer Comments Source Carpal tunnel release [id number] [facility] [place] Cholecystectomy [id number] [facility] [place] Rotator cuff repair [id number] [facility] [place] Carpal tunnel release [id number] [facility] [place] Cholecystectomy [id number] [facility] [place] Rotator cuff repair [id number] [facility] [place] Carpal tunnel release [id number] [place] Cholecyst[facility] [id number] [place] Rotator cuff repair [id number] [place] Carpal tunnel release [id number] [place] Cholecyst[facility] [id number] [place] Rotator cuff repair [id number] [facility]
--- OUTSIDE RECORDS SUMMARY | 2019-01-31 16:57 | XMS REPORT | Summary of Care ---
Author Author [facility] [place] Organization [facility] [place] Address Unknown Phone Unavailable Encounter HQ Albinr_meghan(FIN) [id number] Date(s): 12/21/18 - 12/21/18 [facility] [place] [address] [phone] Discharge Disposition: Home or Self Care Attending [...]
[2019-01-31 17:49] LABS: EOSINOPHILS % 0.3 % (0.0-6.0); HEMATOCRIT 28.7 % (38.2-49.6); HEMOGLOBIN 9.3 g/dL (14.0-18.0); LYMPHOCYTES # (AUTO) 0.8 (1.0-3.2); LYMPHOCYTES % 23.3 % (18.0-39.1); MEAN CORPUSCULAR HEMOGLOBIN 28.7 pg (28-32); MEAN CORPUSCULAR HGB CONC 32.4 g/dL (31-35); MEAN CORPUSCULAR VOLUME 88.6 fL (81-99); MONOCYTES # (AUTO) 0.1 (0.2-0.8); MONOCYTES % 3.2 % (4.4-11.3); NEUTROPHILS # (AUTO) 2.5 (2.1-6.9); NEUTROPHILS % 72.6 % (38.7-80.0); PLATELET COUNT 535 x10e3/uL (140-360); RED BLOOD COUNT 3.24 x10e6/uL (4.3-5.7); RED CELL DISTRIBUTION WIDTH 20.2 % (11.7-14.4)
[2019-01-31 18:08] LABS: ALBUMIN 3.8 g/dL (3.5-5.0); ALBUMIN/GLOBULIN RATIO 0.9 (0.8-2.0); ANION GAP 13.8 mmol/L (8-16); CALCIUM 10.8 mg/dL (8.4-10.2); CREATININE, SERUM 1.18 mg/dL (0.72-1.25); POTASSIUM 3.8 mmol/L (3.5-5.1)
--- NOTE | 2019-01-31 18:15 | Diagnostic Imaging Report ---
EXAMINATION: PA and lateral views of the chest. COMPARISON: Chest portable, 12/13/2018. CLINICAL HISTORY: Shortness of breath, history of CHF DISCUSSION: Lines/tubes: None. Lungs: Lungs are well-inflated. Bilateral interstitial opacities extending from the reynaldo, system with interstitial pulmonary edema. No consolidation. Pleura: There is no pleural effusion or pneumothorax. Heart and mediastinum: Enlarged cardiac silhouette. Central pulmonary venous congestion. Bones and soft tissues: No acute bony abnormalities. Degenerative changes in the thoracic spine IMPRESSION: 1. Enlarged cardiac silhouette, central pulmonary venous congestion and bilateral perihilar interstitial edema, suggesting decompensated CHF. Signed by: Dr. Mathieu Clark M.D. on 01/31/2019 6:12 PM
[2019-01-31 18:54] LABS: LYMPHOCYTES % (MANUAL) 17 % (19-48); MONOCYTES % (MANUAL) 6 % (3.4-9.0); NEUTROPHILS % (MANUAL) 77 % (40-74)
[2019-01-31] MEDS ORDERED: FUROSEMIDE INJ 10 MG/ML 4 ML VIAL IV ONE (19:15)
[2019-01-31] MEDS ORDERED: NITROGLYCERIN 0.2 MG/HR PATCH TOP SCH (19:25)
[2019-01-31] MEDS ORDERED: LOVASTATIN10 MG PO (19:27)
[2019-01-31] MEDS ORDERED: PANTOPRAZOLE SO40 MG PO (19:28)
[2019-01-31] MEDS ORDERED: AMLODIPINE BESY10 MG PO (19:28)
[2019-01-31] MEDS ORDERED: MECLIZINE HCL12.5 MG PO (19:28)
[2019-01-31] MEDS ORDERED: ASPIRIN 81 MG CHEW TAB PO ONE (19:30)
[2019-01-31] MEDS ORDERED: SODIUM CHLORIDE FLUSH 10 ML SYR INJ PRN (19:30)
--- OUTSIDE RECORDS SUMMARY | 2019-01-31 19:43 | XMS REPORT | Clinical Summary ---
Author Author [facility] Organization [facility] Address Unknown Phone Unavailable Care Team Providers Care Toeing Stockings Name Role Phone Eladio Saini PCP Allergies [...] more information, kendra priest contact: Sam Cordova [address] [place] [address]
[2019-01-31 20:40] VITALS: BP 189/99
[2019-01-31 21:35] VITALS: BP 189/99
[2019-01-31 23:35] VITALS: BP 166/65
[2019-02-01] VITALS (8 sets, daily range): BP systolic 148–176; BP diastolic 68–90
--- NOTE | 2019-02-01 06:26 | Diagnostic Imaging Report ---
EXAMINATION: PA and lateral views of the chest. COMPARISON: 01/31/2019 CLINICAL HISTORY: Congestive heart failure DISCUSSION: Lines/tubes: None. Lungs: Central pulmonary venous congestion. Areas of linear atelectasis. Pleura: No pleural effusion or pneumothorax. Heart and mediastinum: Mild cardiomegaly Bones and soft tissues: No acute bony abnormalities. IMPRESSION: Stable chest with mild cardiomegaly and central pulmonary venous congestion Signed by: Dr. Ricky Fernandez M.D. on 02/01/2019 6:22 AM
--- NOTE | 2019-02-01 07:17 | NUR ---
PATIENT IN BED RESTING WITH HEAD OF BED ELEVATED, NO DISTRESS NOTED. URINAL EMPTIED AND CLEANSED. BED IN LOWER POSITION, CALL LIGHT AT REACH.
[2019-02-01 07:30] LABS: CREATINE KINASE MB 1.5 ng/mL (0-5.0)
[2019-02-01] MEDS ORDERED: ACETAMINOPHEN/CODEINE 300MG - 30MG TAB PO PRN ×2 (08:15→09:15)
[2019-02-01] MEDS ORDERED: SPIRONOLACTONE 25 MG TAB PO SCH (09:00)
[2019-02-01] MEDS: LISINOPRIL 10 MG TAB PO SCH (09:22)
[2019-02-01] MEDS: FUROSEMIDE INJ 10 MG/ML 4 ML VIAL IV SCH ×2 (09:22→17:26)
--- NOTE | 2019-02-01 09:28 | NUR ---
PATIENT C/O GENERALIZED PAIN, MD NOTIFIED. NEW ORDER RECEIVED AND IMPLEMENTED.
--- NOTE | 2019-02-01 09:38 | History and Physical ---
CHIEF COMPLAINT: Increase in fluid overload and congestive heart failure. HISTORY: The patient is an 83-year-old male with systolic dysfunction, congestive heart failure, came in with fluid overload, increasing shortness of breath. The patient is otherwise stable. He has not followed up with his pediatric critical care nurse since last admission in December 2018. The patient is otherwise stable at this time. PAST MEDICAL HISTORY: Congestive heart failure, hypertension, dyslipidemia, diabetes type 2, enlarged prostate, and BPH. PAST SURGICAL HISTORY: Knee surgery, right shoulder surgery, and cholecystectomy. SOCIAL HISTORY: The patient does not smoke or use alcohol. No recreational drug use. He lives with his spouse. ALLERGIES: CIPRO. HOME MEDICATIONS: List reviewed. REVIEW OF SYSTEMS: As mentioned above. PHYSICAL EXAMINATION: VITAL SIGNS: Temperature is 98, blood pressure 167/90, pulse rate 62, and respirations 18. GENERAL: The patient is not in acute distress. He is awake. HEENT: Normocephalic, atraumatic. Anicteric. NECK: Supple grossly. PULMONARY: Diminished breath sounds with rales at the bases. CARDIOVASCULAR: S1, S2. Regular rate and rhythm. ABDOMEN: Soft. Positive bowel sounds. Nontender and nondistention. EXTREMITIES: 1+ edema. NEUROLOGIC: No focal deficit. LABORATORY DATA: Sodium is 135, potassium 3.8, chloride 99, bicarb 26, BUN 14, creatinine 1.2, and glucose 134. WBC is 3.4, hemoglobin 9.8, hematocrit is 28.7, and platelets is 535. IMPRESSION: 1. Acute congestive heart failure most likely systolic. Echocardiogram still pending. 2. Multiple chronic baseline medical problems. PLAN: Echocardiogram. Consultation with Dr. Nelson Zhao, pediatric critical care nurse. Resume some home medication. IV Lasix. MD JUAN Molina/MARCOL /[id number]
[2019-02-01] MEDS: FINASTERIDE 5 MG TAB PO SCH (11:20)
[2019-02-01] MEDS: POTASSIUM CHLORIDE 20 MEQ TAB CR PO SCH (11:20)
[2019-02-01] MEDS: PANTOPRAZOLE SOD 40 MG TABEC PO SCH (11:20)
[2019-02-01] MEDS: GLIPIZIDE 5 MG TAB PO SCH (11:21)
[2019-02-01] MEDS: MECLIZINE HCL 12.5 MG TAB PO SCH (11:21)
[2019-02-01] MEDS: AMLODIPINE BESYLATE 10 MG TAB PO SCH (11:21)
[2019-02-01 15:00] LABS: CREATINE KINASE MB 2.1 ng/mL (0-5.0)
--- NOTE | 2019-02-01 15:45 | NUR ---
WALKING ROUND MADE, PATIENT IN BED RESTING WITH EYES CLOSED, NO DISTRESS NOTED. BED IN LOWER POSITION, CALL LIGHT AT REACH.
--- NOTE | 2019-02-01 17:00 | NUR ---
Nutrition Screen Note RD Recommendation for Physician: -Rec adding ADA 1800 to cardiac diet as medically appropriate -RD provided diet education on CHF on 12/13/2018. Pt didnt want any additional information. Plan of Care: RD following, monitoring for tolerance and adequacy Nutrition reason for involvement: Diagnosis Primary Diagnose(s): CHF PMH: Congestive heart failure, hypertension, dyslipidemia, diabetes type 2, enlarged prostate, and BPH. Ht: 66in Wt: 195.19lb BMI: 31.5kg/m2 IBW: 142lb RD Assessment: (02/01) Chart reviewed. Labs and meds reviewed. 83yo M, who was admitted for fluids overload and CHF. Currently on IV lasix. Visited pt in the room. Pt reported good appetite without any nausea or vomiting. Pt denied any chewing or swallowing difficulty. No recent weight loss reported. Pt stated I know how to eat. I dont think I need any more information. RD provided diet education on CHF on 12/13/2018. Will continue to monitor and follow. Current Diet: cardiac diet Malnutrition Evaluation (02/01) The patient does not meet criteria for a specified degree of malnutrition at this time. Will re-evaluate at follow-up as appropriate. Diet Education Needs Assessment: Diet education indicated, pt refused. Nutrition Care Level: low Signed: Zaira Hill, MS, RD, LD
[2019-02-01] MEDS: FLUTICASONE PROPIONATE NASAL SPRAY NS SCH (17:26)
[2019-02-01] MEDS ORDERED: ONDANSETRON HCL INJ 2MG/ML 2ML 2 MG/ML VIAL IV PRN (18:30)
[2019-02-01] MEDS ORDERED: HYDRALAZINE HCL 20 MG/ML VIAL IV PRN (19:45)
--- NOTE | 2019-02-01 20:12 | NUR ---
RECEIVED PT IN BED AOX3 .RESPIRATIONS ARE EVEN AND UNLABORED HENRIK PAIN .RT AC 20 G S/L TELE 13 SR .FAMILY AT THE BEDSIDE AND DR ZEPEDA GAVE THE ORDER FOR HYDRAZINE FOR HIGH BLOOD PRESSURE .CALL LIGHT WITH IN REACH CONTINUE TO MONITOR
[2019-02-01] MEDS ORDERED: TAMSULOSIN HCL 0.4 MG CAP PO SCH (21:00)
[2019-02-01] MEDS ORDERED: SIMVASTATIN 20 MG TAB PO SCH (21:00)
[2019-02-01] MEDS ORDERED: FOLIC ACID 1 MG TAB PO SCH ×2 (21:00→22:00)
[2019-02-02] VITALS: BP 146/67
[2019-02-02 04:00] VITALS: BP 152/69
[2019-02-02 05:53] LABS: EOSINOPHILS % 0.3 % (0.0-6.0); LYMPHOCYTES # (AUTO) 0.7 (1.0-3.2); LYMPHOCYTES % 23.3 % (18.0-39.1); MEAN CORPUSCULAR HEMOGLOBIN 28.5 pg (28-32); MEAN CORPUSCULAR HGB CONC 32.1 g/dL (31-35); MEAN CORPUSCULAR VOLUME 88.6 fL (81-99); MONOCYTES # (AUTO) 0.3 (0.2-0.8); MONOCYTES % 8.4 % (4.4-11.3); NEUTROPHILS # (AUTO) 2.1 (2.1-6.9); NEUTROPHILS % 67.4 % (38.7-80.0); PLATELET COUNT 468 x10e3/uL (140-360); RED BLOOD COUNT 3.16 x10e6/uL (4.3-5.7); RED CELL DISTRIBUTION WIDTH 19.5 % (11.7-14.4)
[2019-02-02 06:13] LABS: ANION GAP 13.4 mmol/L (8-16); BLOOD UREA NITROGEN 13 mg/dL (7-26); BUN/CREATININE RATIO 12 (6-25); CALCIUM 9.5 mg/dL (8.4-10.2); CARBON DIOXIDE 27 mmol/L (22-29); CHLORIDE 98 mmol/L (98-107); CREATININE, SERUM 1.08 mg/dL (0.72-1.25); EST GLOMERULAR FILTRATION RATE > 60 ML/MIN (60-); GLUCOSE 122 mg/dL (74-118); POTASSIUM 3.4 mmol/L (3.5-5.1); SODIUM 135 mmol/L (136-145)
--- NOTE | 2019-02-02 06:42 | NUR ---
PT RESTED DURING THE NIGHT AND DENIES PAIN FAMILY AT THE BEDSIDE .CONTINUE TO MONITOR
--- NOTE | 2019-02-02 07:28 | NUR ---
BEDSIDE REPORT GIVEN TO THE ONCOMING NURSE.
[2019-02-02] MEDS: PANTOPRAZOLE SOD 40 MG TABEC PO SCH (07:30)
[2019-02-02] MEDS: GLIPIZIDE 5 MG TAB PO SCH (07:30)
[2019-02-02 08:09] VITALS: BP 162/64
[2019-02-02] MEDS ORDERED: ACYCLOVIR 200 MG CAP PO SCH (09:00)
[2019-02-02] MEDS: FLUTICASONE PROPIONATE NASAL SPRAY NS SCH (09:39)
[2019-02-02] MEDS: MECLIZINE HCL 12.5 MG TAB PO SCH (09:39)
[2019-02-02] MEDS: FUROSEMIDE INJ 10 MG/ML 4 ML VIAL IV SCH (09:39)
[2019-02-02] MEDS: AMLODIPINE BESYLATE 10 MG TAB PO SCH (09:40)
[2019-02-02] MEDS: POTASSIUM CHLORIDE 20 MEQ TAB CR PO SCH (09:40)
[2019-02-02] MEDS: FINASTERIDE 5 MG TAB PO SCH (09:40)
[2019-02-02] MEDS: LISINOPRIL 10 MG TAB PO SCH (09:40)
[2019-02-02 10:05] VITALS: BP 162/64
--- NOTE | 2019-02-02 11:12 | NUR ---
Rounds by Dr. Duval, discharged patient and no records of continuation of abx. Call to office at this time
[2019-02-02 11:56] VITALS: BP 164/74
[2019-02-02] MEDS ORDERED: ONDANSETRON HCL 4 MG ORAL DISINTEGRATING TAB PO PRN (12:15)
--- NOTE | 2019-02-02 12:32 | NUR ---
Patient alert and discharged by attending, call to cardiologists for clearance to discharge and waiting for call back
--- NOTE | 2019-02-02 13:30 | NUR ---
Patient stated she needed to leave and will f/u with Dr. Zhao and group when she brings her home after discharge.
[2019-02-02] MEDS ORDERED: CARVEDILOL 12.5 MG TAB PO SCH (17:00)
[2019-02-02] MEDS ORDERED: ATENOLOL 50 MG TAB PO SCH (21:00)
--- NOTE | 2019-02-03 02:13 | Discharge Summary ---
PRIMARY CARE PHYSICIAN: Eladio Saini DO. FINAL DIAGNOSES: 1. Yneii-ib-kgoudkl systolic dysfunction. 2. Congestive heart failure. SUMMARY: An 83-year-old male came in with some vascular congestion. Dr. Nelson Zhao consulted. The patient was seen by Dr. Duval of Dr. Zhao's associate. The patient is stable. Echocardiogram showed ejection fraction approximately 45% to 50%. The patient is otherwise stable. Lasix has been increased to twice a day instead of once a day of 40 mg. The patient is stable and discharged home with adjustment as follows. 1. Resume home medication. 2. Change the Lasix to 40 mg twice a day. 3. Change the potassium to 20 mEq twice a day. The patient is stable and discharged today. Follow up with Dr. Duval or Dr. Zhao in approximately 1 to 2 weeks. MD JUAN Molina/NATALIE /[id number]
[2019-02-03] MEDS ORDERED: LISINOPRIL 10 MG TAB PO SCH (09:00)
[2019-02-03] MEDS ORDERED: LISINOPRIL 20 MG TAB PO SCH (09:00)
== END 2019-02-02 14:42 | disposition home or self-care (01) ==
LOC: ER 16:54 → ERHOLD 19:40 → MED/SURG3 20:41
PROVIDERS: ADMIT Internal Medicine; ATTEND Internal Medicine
DX: I11.0 Hypertensive heart disease with heart failure (principal); I50.23 Acute on chronic systolic (congestive) heart failure; E78.5 Hyperlipidemia, unspecified; E11.9 Type 2 diabetes mellitus without complications; N40.0 Benign prostatic hyperplasia without lower urinary tract symptoms; Z90.49 Acquired absence of other specified parts of digestive tract; Z88.1 Allergy status to other antibiotic agents; Z82.49 Family history of ischemic heart disease and other diseases of the circulatory system
CPT/HCPCS: 36415 ×3; 71046 ×2; 80048; 80053; 82550; 82553; 83880; 84484 ×2; 85025 ×2; 85379; 93005 ×2; 93306; 96374; 99284; G0378 ×3; J1940 ×3; J2405; J8597 ×2; S0164 ×2

== ENCOUNTER 2019-06-13 17:17 | Inpatient (IN) | payer OTHER ==
[~2019-06-13] VITALS: Ht 170.2 cm; Wt 80.3 kg
[~2019-06-13 17:17] MED LIST changes: +LOVASTATIN10 MG PO
[2019-06-13] MEDS ORDERED: ASPIRIN 81 MG CHEW TAB PO ONE ×2 (17:45→19:15)
[2019-06-13 18:29] LABS: EOSINOPHILS % 0.6 % (0.0-6.0); HEMATOCRIT 27.4 % (38.2-49.6); HEMOGLOBIN 8.7 g/dL (14.0-18.0); LYMPHOCYTES # (AUTO) 0.6 (1.0-3.2); LYMPHOCYTES % 32.9 % (18.0-39.1); MEAN CORPUSCULAR HEMOGLOBIN 27.6 pg (28-32); MEAN CORPUSCULAR HGB CONC 31.8 g/dL (31-35); MONOCYTES % 2.4 % (4.4-11.3); NEUTROPHILS # (AUTO) 1.1 (2.1-6.9); NEUTROPHILS % 63.5 % (38.7-80.0); PLATELET COUNT 404 x10e3/uL (140-360); RED BLOOD COUNT 3.15 x10e6/uL (4.3-5.7); RED CELL DISTRIBUTION WIDTH 21.8 % (11.7-14.4)
[2019-06-13 18:47] LABS: ALBUMIN 4.1 g/dL (3.5-5.0); ALBUMIN/GLOBULIN RATIO 1.1 (0.8-2.0); ANION GAP 14.1 mmol/L (8-16); CREATININE, SERUM 1.37 mg/dL (0.72-1.25); POTASSIUM 4.1 mmol/L (3.5-5.1)
--- NOTE | 2019-06-13 19:07 | Diagnostic Imaging Report ---
EXAMINATION: CHEST SINGLE (NOT PORTABLE) INDICATION: CHEST PAIN COMPARISON: 02/01/2019. FINDINGS: TUBES and LINES: None. LUNGS: Interval development of patchy density in the perihilar region, right greater than left with obscuration of the right cardiac border which may represent asymmetric pulmonary edema, however, superimposed infection cannot be excluded. Prominence of the central pulmonary vasculature bilaterally. Mild interstitial edema. PLEURA: No pleural effusion or pneumothorax. HEART AND MEDIASTINUM: Cardiac size is moderately enlarged. BONES AND SOFT TISSUES: No acute osseous lesion. Soft tissues are unremarkable. UPPER ABDOMEN: No free air under the diaphragm. IMPRESSION: Findings suggestive of decompensated CHF with bilateral central pulmonary edema. Signed by: Dr. Taqueria Montalvo M.D. on 06/13/2019 7:04 PM
[2019-06-13 19:38] LABS: LYMPHOCYTES % (MANUAL) 15 % (19-48); MONOCYTES % (MANUAL) 4 % (3.4-9.0); NEUTROPHILS % (MANUAL) 79 % (40-74); PLATELET ESTIMATE SLIGHTLY DECREASED; PLATELET MORPHOLOGY COMMENT FEW GIANT; SCHISTOCYTES X
[2019-06-13 19:39] LABS: ANISOCYTOSIS SLIG; HYPOCHROMASIA SLIGHT; POIKILOCYTOSIS MODERATE; RBC MORPHOLOGY COMMENT NORMAL
[2019-06-13] MEDS: CEFTRIAXONE SOD 1 GM/NS 50 ML 50 ML IV SCH (20:30)
[2019-06-13] MEDS ORDERED: DEXTROSE 50% SYRINGE 50 ML IV PRN (20:30)
[2019-06-13] MEDS: INSULIN LISPRO 100 UNIT/1 ML 3ML VIAL SQ SCH (21:10)
--- NOTE | 2019-06-13 21:10 | NUR ---
PT PROVIDED WITH TURKEY SANDWICH, SODA, PUDDING, APPLE SAUCE, AND SHAUNA CRACKERS; PT TOLERATING WELL AT THIS TIME.
[2019-06-13] MEDS ORDERED: HYDRALAZINE HCL 20 MG/ML VIAL IV STA (21:11)
[2019-06-13] MEDS ORDERED: NITROGLYCERIN 2% OINT 1 GM PKT TOP ONE (21:15)
--- NOTE | 2019-06-13 22:18 | NUR ---
PT ARRIVED BY STRETCHER TO ROOM 104. PT IS AAOX3, RR EVEN AND NON-LABORED. ON ROOM AIR. NO S/SX OF DISTRESS NOTED. PT ASSISTED TO STAND AND PIVOT TO HOSPITAL BED. ORIENTED PT TO HOSPITAL ROOM, CALL LIGHT, PHONE, BED CONTROLS AND LIGHTS. LEFT PT LAYING SEMI FOWLERS IN BED, BED IN LOW LOCKED POSITION, SIDE RAILS UPX2, CALL LIGHT AND PHONE WITHIN REACH.
--- NOTE | 2019-06-13 22:28 | NUR ---
WAS INFORMED BY MD GARCIA THAT HE DOES NOT ACCEPT [employer] AND THE ATTENDING [employer]IV[employer] DIRECTOR FOR THAT INSURANCE NEEDS TO BE CONSULTED. ADMINISTRATIVE UNDERWRITER NOTIFIED. ER CHARGE NURSE NOTIFIED. ER MD TO CHANGE.
[2019-06-13 22:33] VITALS: BP 166/83
--- NOTE | 2019-06-13 23:10 | NUR ---
PT REPORTS HE FEELS LIKE HE CAN NOT BREATHE. SPO2 CHECKED, 98% ON ROOM AIR. APPLIED 2L NASAL CANNULA. PT REPORTS THAT IS HELPING A LOT. NOTIFIED RESPIRATORY THERAPY OF APPLICATION OF O2.
[2019-06-13 23:30] VITALS: BP 166/83
[2019-06-13] MEDS: FUROSEMIDE INJ 10 MG/ML 4 ML VIAL IV SCH (23:45)
[2019-06-14] VITALS (7 sets, daily range): BP systolic 163–177; BP diastolic 72–84
[2019-06-14 03:03] LABS: HEMATOCRIT 25.4 % (38.2-49.6); HEMOGLOBIN 8.1 g/dL (14.0-18.0); LYMPHOCYTES # (AUTO) 0.8 (1.0-3.2); LYMPHOCYTES % 36.8 % (18.0-39.1); MEAN CORPUSCULAR HEMOGLOBIN 27.6 pg (28-32); MEAN CORPUSCULAR HGB CONC 31.9 g/dL (31-35); MEAN CORPUSCULAR VOLUME 86.7 fL (81-99); MONOCYTES # (AUTO) 0.1 (0.2-0.8); MONOCYTES % 2.9 % (4.4-11.3); NEUTROPHILS # (AUTO) 1.2 (2.1-6.9); NEUTROPHILS % 59.8 % (38.7-80.0); PLATELET COUNT 385 x10e3/uL (140-360); RED BLOOD COUNT 2.93 x10e6/uL (4.3-5.7); RED CELL DISTRIBUTION WIDTH 21.7 % (11.7-14.4)
[2019-06-14 03:38] LABS: ANION GAP 14.7 mmol/L (8-16); CALCIUM 9.8 mg/dL (8.4-10.2); CREATININE, SERUM 1.27 mg/dL (0.72-1.25); POTASSIUM 3.7 mmol/L (3.5-5.1)
[2019-06-14] MEDS ORDERED: VITAMIN B-121000 MCG PO (04:37)
[2019-06-14] MEDS ORDERED: AUGMENTIN 875-1 EACH PO (04:37)
[2019-06-14] MEDS ORDERED: VITAMIN D31000 UNIT PO (04:37)
[2019-06-14] MEDS ORDERED: FERROUS SULFAT325 MG PO (04:37)
[2019-06-14] MEDS ORDERED: ADVIL200 M1 PO (04:37)
[2019-06-14] MEDS ORDERED: VITAMIN B-650 MG PO (04:37)
[2019-06-14] MEDS ORDERED: HYDROXYZINE HCL25 MG PO (04:37)
[2019-06-14] MEDS ORDERED: LEVOCETIRIZINE D5 MG PO (04:37)
--- NOTE | 2019-06-14 06:10 | NUR ---
PT CALLED DESK SAYING "SOMETHING IS WRONG WITH MY ARM YOU NEED TO LOOK AT IT." UPON ENTERING ROOM A HEMATOMA WAS NOTED TO (R) AC. PT REPORTS THAT IS WHERE THEY LINDA BLOOD FROM ME THIS MORNING AND IT REALLY HURT A LOT. PRESSURE APPLIED TO (R) AC FOR 5 MINUTES AND WARM COMPRESS APPLIED. PT VERBALIZED FEELING RELIEF FROM PAIN.
[2019-06-14] MEDS: FUROSEMIDE INJ 10 MG/ML 4 ML VIAL IV SCH ×2 (06:12→09:06)
--- NOTE | 2019-06-14 06:22 | NUR ---
PAGE PLACED FOR MD KELLER CONCERNING CONSULTATION. LEFT MESSAGE. WAITING FOR CALLBACK.
--- NOTE | 2019-06-14 06:23 | NUR ---
PAGE PLACED FOR MD [place] CONCERNING CONSULTATION. WAITING FOR CALLBACK.
--- NOTE | 2019-06-14 07:02 | NUR ---
PT REPORTS HEADACHE. CALL PLACED TO MD FLORES CONCERNING PAIN MEDICATION. LEFT MESSAGE.
[2019-06-14] MEDS: INSULIN LISPRO 100 UNIT/1 ML 3ML VIAL SQ SCH ×4 (07:30→20:07)
[2019-06-14] MEDS ORDERED: LORATADINE 10 MG TAB PO PRN (08:30)
[2019-06-14] MEDS ORDERED: LEVOFLOXACIN 750MG/D5W 150ML 150 ML IV SCH (09:00)
[2019-06-14] MEDS: PANTOPRAZOLE SOD 40 MG TABEC PO SCH (09:06)
[2019-06-14] MEDS: ATENOLOL 50 MG TAB PO SCH ×2 (09:06→16:52)
[2019-06-14] MEDS: HYDROXYZINE HCL 25 MG TAB PO SCH ×3 (09:06→20:07)
[2019-06-14] MEDS: POTASSIUM CHLORIDE 20 MEQ TAB CR PO SCH ×2 (09:06→16:52)
[2019-06-14] MEDS: CYANOCOBALAMIN 1,000 MCG TAB PO SCH (09:07)
[2019-06-14] MEDS: ACETAMINOPHEN/CODEINE 300MG - 30MG TAB PO PRN ×2 (09:07→20:07)
[2019-06-14] MEDS: PYRIDOXINE HCL 50 MG TAB PO SCH (09:07)
--- NOTE | 2019-06-14 09:28 | NUR ---
D aware of consult
[2019-06-14] MEDS: FLUTICASONE PROPIONATE NASAL SPRAY NS SCH ×2 (11:29→16:52)
[2019-06-14 11:37] LABS: THYROID STIMULATING HORMONE 1.706 uIU/mL (0.350-4.940)
--- NOTE | 2019-06-14 11:37 | NUR ---
Report called to Crispin Meng RN of patient's status. Taken via wheelchair by PCT to room 203. Accompanied by family member. AAOX3 to time, person, place. Respirations even and unlabored. O2 2L NC.
--- NOTE | 2019-06-14 11:53 | Diagnostic Imaging Report ---
CT of the chest, abdomen, and pelvis, without contrast, 06/14/2019. History: Fever, leukopenia. Comparison: Chest x-ray 06/13/2019. Technique: Technique: Multidetector CT scanning of the chest, abdomen, and pelvis was performed from the level of the lung apices to the inferior pubic rami without contrast. Coronal and sagittal multiplanar reformations were obtained. RADIATION DOSE: Total DLP: 757 mGy*cm Dose modulation, iterative reconstruction, and/or weight based adjustment of the mA/kV was utilized to reduce the radiation dose to as low as reasonably achievable. Discussion: Evaluation is limited without IV or oral contrast. CHEST: The heart is enlarged. There is calcification of the coronary arteries. The main pulmonary artery is dilated measuring 3.8 cm in diameter. The aorta is within normal limits for size. Multiple calcified mediastinal and hilar lymph nodes are present. The thyroid is unremarkable. A calcified granuloma is present in the right lower lobe. There are patchy bilateral groundglass opacities. Right middle lobe, lingular, and bibasilar atelectasis are present. A small right pleural effusion is present. ABDOMEN: Calcified granulomata are seen within the liver and spleen. The liver, biliary tree, spleen, pancreas, adrenal glands, and kidneys are otherwise unremarkable. Cholecystectomy clips are present. The abdominal aorta is within normal limits for size. There is no bowel dilatation. Diverticuli are present within the distal colon without evidence of adjacent inflammation. There is no evidence of adenopathy or free fluid. PELVIS: The bladder, prostate, and seminal vesicles are unremarkable. There is no evidence of free fluid or adenopathy. Small fat-containing inguinal hernias are present bilaterally. BONES AND SOFT TISSUES: Advanced degenerative changes are present throughout the lumbar spine without evidence of lytic or sclerotic lesion. Postsurgical changes are noted in both shoulders. IMPRESSION: 1. Cardiomegaly and pulmonary enlargement with findings suggestive of mild CHF, with bilateral atelectasis and a small right pleural effusion. 2. Findings of previous granulomatous disease within the chest and abdomen. 3. Colonic diverticulosis without evidence of diverticulitis. 4. Bilateral fat-containing inguinal hernias. Otherwise unremarkable noncontrast exam. Signed by: Jeremiah Alejo on 06/14/2019 11:49 AM
[2019-06-14 12:28] LABS: CREATINE KINASE MB 4.1 ng/mL (0-5.0)
[2019-06-14 13:10] LABS: FOLATE 38.3 ng/mL (7.0-15.4)
--- NOTE | 2019-06-14 15:11 | History and Physical ---
CHIEF COMPLAINT: Acute congestive heart failure. HISTORY OF PRESENT ILLNESS: The patient is an [id number] with known systolic dysfunction and congestive heart failure, came in with acute exacerbation. The patient also has leukopenia and anemia. Supposed to see Dr. Shayna Wilkinson, jewel lathe operator today, but because he was weak, he came to the hospital instead. Chest x-ray show suggestive of decompensated congestive heart failure with bilateral central pulmonary edema. The patient apparently has some anorexia and he is just drinking lot of water, but only take minimal diuretic. The patient is stable. His WBC is leukopenic at approximately 2000. He is anemic. He does have chronic kidney disease, however. The patient is otherwise stable. PAST MEDICAL HISTORY: Pancytopenia pending for Hematology consultation with Dr. Shayna Wilkinson, systolic congestive heart failure, hypertension, dyslipidemia, diabetes type 2, BPH, and chronic anemia secondary to the above. PAST SURGICAL HISTORY: Knee surgery, right shoulder, and cholecystectomy. SOCIAL HISTORY: The patient does not smoke or use alcohol. No regular drugs. ALLERGIES: TO CIPRO. HOME MEDICATIONS: The patient is on multiple medications, list will be reviewed. REVIEW OF SYSTEMS: Shortness of breath and generalized weakness. PHYSICAL EXAMINATION: VITAL SIGNS: Temperature is 98, blood pressure 164/77, pulse rate 76, and respiration 19. GENERAL: The patient is not in acute distress. He is awake. HEENT: Normocephalic and atraumatic. Pupils reactive. Anicteric. NECK: Supple grossly. PULMONARY: Diminished breath sounds at the bases with rales. CARDIOVASCULAR: S1 and S2. Regular rate and rhythm. ABDOMEN: Soft, nontender, and non-distention. EXTREMITIES: 1+ edema. NEUROLOGIC: No focal deficit. LABORATORY DATA: Sodium is 136, potassium 3.7, chloride 101, bicarb 24, BUN 22, creatinine 1.2, and glucose is 89. WBC is 2.0, hemoglobin 8.1, hematocrit 25.4, and platelets is 384. IMPRESSION: 1. Xzqks-nl-[id number] systolic dysfunction, congestive heart failure with pulmonary edema. 2. Leukopenia and chronic anemia. 3. Chronic kidney disease. PLAN: Consultation with Dr. Miles Daley. Obtain a CT chest, abdomen, and pelvis without contrast. Continue with antibiotics. Repeat lab work. We will monitor the patient closely at this time. We will get iron profile, B12, and folic acid level. MD JESS Molina /[id number]
--- NOTE | 2019-06-14 15:14 | NUR ---
Paged Dr Hurst regarding Blood culture preliminary result Gram positive cocci
[2019-06-14] MEDS: CEFTRIAXONE SOD 1 GM/NS 50 ML 50 ML IV SCH (20:06)
[2019-06-14] MEDS: FOLIC ACID 1 MG TAB PO SCH (20:07)
[2019-06-14] MEDS: TAMSULOSIN HCL 0.4 MG CAP PO SCH (20:07)
[2019-06-14] MEDS: FINASTERIDE 5 MG TAB PO SCH (20:07)
[2019-06-14] MEDS ORDERED: SODIUM CHLORIDE 0.9% 250ML 250 ML ONE (20:16)
[2019-06-14 20:35] LABS: CREATINE KINASE MB 3.5 ng/mL (0-5.0)
[2019-06-15] VITALS (8 sets, daily range): BP systolic 112–187; BP diastolic 57–91
[2019-06-15 05:37] LABS: EOSINOPHILS % 0.6 % (0.0-6.0); HEMATOCRIT 25.7 % (38.2-49.6); HEMOGLOBIN 8.1 g/dL (14.0-18.0); LYMPHOCYTES # (AUTO) 0.7 (1.0-3.2); LYMPHOCYTES % 40.6 % (18.0-39.1); MEAN CORPUSCULAR HEMOGLOBIN 27.2 pg (28-32); MEAN CORPUSCULAR HGB CONC 31.5 g/dL (31-35); MEAN CORPUSCULAR VOLUME 86.2 fL (81-99); MONOCYTES % 2.3 % (4.4-11.3); NEUTROPHILS % 55.9 % (38.7-80.0); PLATELET COUNT 404 x10e3/uL (140-360); RED BLOOD COUNT 2.98 x10e6/uL (4.3-5.7); RED CELL DISTRIBUTION WIDTH 21.6 % (11.7-14.4)
[2019-06-15 05:47] LABS: ANION GAP 12.7 mmol/L (8-16); BLOOD UREA NITROGEN 21 mg/dL (7-26); BUN/CREATININE RATIO 19 (6-25); CALCIUM 9.7 mg/dL (8.4-10.2); CARBON DIOXIDE 25 mmol/L (22-29); CHLORIDE 101 mmol/L (98-107); CREATININE, SERUM 1.12 mg/dL (0.72-1.25); EST GLOMERULAR FILTRATION RATE > 60 ML/MIN (60-); GLUCOSE 101 mg/dL (74-118); POTASSIUM 3.7 mmol/L (3.5-5.1); SODIUM 135 mmol/L (136-145)
--- NOTE | 2019-06-15 06:36 | NUR ---
SPOKE TO DR GUZMAN ABOUT LOW WBC 1.75, NO ORDER RECEIVED AT THIS TIME. DR GUZMAN SAID SHE WOULD TALK TO DR FLORES ABOUT ABX FOR POSITIVE BLOOD CULTURE
[2019-06-15 07:25] LABS: FERRITIN 269.38 ng/mL (21.81-274.66)
[2019-06-15] MEDS: INSULIN LISPRO 100 UNIT/1 ML 3ML VIAL SQ SCH ×4 (07:30→20:35)
[2019-06-15] MEDS: PANTOPRAZOLE SOD 40 MG TABEC PO SCH (07:30)
[2019-06-15 08:02] LABS: ANISOCYTOSIS MODERATE; LYMPHOCYTES % (MANUAL) 44 % (19-48); MONOCYTES % (MANUAL) 2 % (3.4-9.0); NEUTROPHILS % (MANUAL) 54 % (40-74); NUCLEATED RED BLOOD CELLS 1; PLATELET ESTIMATE SLIGHTLY INCREASED; PLATELET MORPHOLOGY COMMENT NORMAL; RBC MORPHOLOGY COMMENT ABNORMAL
[2019-06-15 08:03] LABS: POIKILOCYTOSIS SLIGHT
[2019-06-15 08:04] LABS: MICROCYTOSIS SLIGHT; OVALOCYTES FEW
[2019-06-15 08:57] LABS: HIV 1&2 AB SCREEN NON-REACTIVE (NONREACTIVE)
[2019-06-15] MEDS: CYANOCOBALAMIN 1,000 MCG TAB PO SCH (09:00)
[2019-06-15] MEDS: PYRIDOXINE HCL 50 MG TAB PO SCH (09:00)
[2019-06-15] MEDS: FLUTICASONE PROPIONATE NASAL SPRAY NS SCH ×2 (09:00→17:00)
[2019-06-15] MEDS: POTASSIUM CHLORIDE 20 MEQ TAB CR PO SCH ×2 (09:00→17:00)
[2019-06-15] MEDS: HYDROXYZINE HCL 25 MG TAB PO SCH ×3 (09:00→20:35)
[2019-06-15] MEDS ORDERED: VANCOMYCIN 1GM/NS 250 ML 250 ML IV ONE (09:00)
[2019-06-15] MEDS: FUROSEMIDE INJ 10 MG/ML 4 ML VIAL IV SCH (09:00)
[2019-06-15] MEDS: ATENOLOL 50 MG TAB PO SCH ×2 (09:00→17:00)
--- NOTE | 2019-06-15 12:35 | NUR ---
RCD PT AT BED PT IS ALERT AND ORIENTED AND PT RESTING ON BED IV PATENT BY SALINE FLUSH PATENT FAMILY AT BED SIDE BED LOW AND LOCKED CALL LIGHT IN REACH
[2019-06-15] MEDS: CEFEPIME 1GM/NS 0.9% 50 ML 50 ML IV SCH ×2 (13:00→20:35)
--- NOTE | 2019-06-15 19:00 | NUR ---
RECEIVED PATIENT IN BEDSIDE SHIFT REPORT. PATIENT SITTING ON BEDSIDE, FAMILY MEMBERS AT BEDSIDE. NO PAIN REPORTED AT THIS TIME. NO S&S OF DISTRESS NOTED. BED LOCKED IN LOWEST POSITION, SIDE RAILS UPX2, CALL LIGHT IN REACH.
--- NOTE | 2019-06-15 19:24 | NUR ---
PT RESTING ON BED BED SIDE REPORT GIVEN TO ONCOMING NURSE
--- NOTE | 2019-06-15 19:57 | NUR ---
AUTOMATIC BP CUFF SHOWED BP OF 187/91. RECHECKED MANUALLY AT THIS TIME, BP IS 158/68.
--- NOTE | 2019-06-15 20:30 | NUR ---
PROVIDED PATIENT WITH CLEAN CATCH URINE SAMPLE BOTTLE. EXPLAINED HOW TO USE IT, PATIENT AND REPEATED BACK THE STEPS. VERBALIZED THEY WOULD FOLLOW INSTRUCTIONS AND INFORM ME WHEN SAMPLE IS READY AFTER HE NEXT NEEDS TO URINATE. Addendum: 06/15/19 at 2152 by Hui Calhoun RN URINE SAMPLE TAKEN TO LAB AT THIS TIME
[2019-06-15] MEDS: FINASTERIDE 5 MG TAB PO SCH (20:35)
[2019-06-15] MEDS: TAMSULOSIN HCL 0.4 MG CAP PO SCH (20:35)
[2019-06-15] MEDS: FOLIC ACID 1 MG TAB PO SCH (20:35)
[2019-06-15] MEDS: ACETAMINOPHEN/CODEINE 300MG - 30MG TAB PO PRN (20:36)
[2019-06-15 21:57] LABS: BILIRUBIN,URINE NEGATIVE (NEGATIVE); CLARITY,URINE CLEAR (CLEAR); COLOR,URINE YELLOW (YELLOW); KETONES,URINE NEGATIVE (NEGATIVE); LEUKOCYTE ESTERASE ,URINE NEGATIVE (NEGATIVE); NITRITE,URINE NEGATIVE (NEGATIVE); PROTEIN,URINE DIPSTICK 1+ (NEGATIVE); URINE UROBILINOGEN 0.2 mg/dL (0.2 - 1)
[2019-06-15 22:06] LABS: BACTERIA,URINE RARE /HPF; EPITHELIAL CELLS,URINE FEW /LPF; RBC,URINE 0-5 /HPF (0-5); WBC,URINE (MAN) 0-5 /HPF (0-5)
[2019-06-16] VITALS (8 sets, daily range): BP systolic 130–149; BP diastolic 65–80
--- NOTE | 2019-06-16 00:39 | Consultation ---
DATE OF CONSULTATION: 06/15/2019 REASON FOR CONSULTATION: Evaluate and assist in managing the patient with gram-positive septicemia. Information is gathered from the current medical record. I interviewed the patient and his at the bedside. HISTORY OF PRESENT ILLNESS: He is an 84-year-old male with congestive heart failure and a history of leukopenia and anemia, who is being seen by Hematology-Oncology. The patient tells me that he came to the hospital because of increasing shortness of breath. The reports that he has had fevers intermittently. He has also been having some flu-like symptoms. He does have a history of prostatic enlargement with obstructive uropathy and gets intermittent urinary tract infections. At the time of presentation, he had a temperature of 100 degrees Fahrenheit, pulse rate of 72, respiratory rate 18, and blood pressure 167/79. He had a CBC done that showed a white count of 1.6, hemoglobin of 8.7, and platelet count 404. His serum creatinine was 1.3. He had blood cultures drawn that are showing gram-positive cocci in clusters, which have not yet been fully identified and he has been started on treatment with vancomycin and cefepime. MEDICAL HISTORY: As reported above. He has had arthroscopic surgeries on his knees. He has had surgeries on both shoulders. He has hardware in the left shoulder. He has had cholecystectomy. He has had prostate biopsy. No cancer was found. There is a history of diabetes mellitus, hypertension, and dyslipidemia. There is no report of chronic kidney disease, liver disease, myocardial infarction, or CVA. SOCIAL HISTORY: The patient has not smoked for more than 20 years. No report of alcohol abuse. FAMILY HISTORY: Noncontributory to his current hospitalization. ALLERGIES: HE IS ALLERGIC TO CIPRO MENTIONED EARLIER. HE IS ON TREATMENT WITH CEFEPIME AND VANCOMYCIN. THE REST OF HIS MEDICATIONS ARE PER THE MEDICATION ADMINISTRATION REPORT. REVIEW OF SYSTEMS: The patient is alert. His sensorium is clear. He is not coughing currently. No dyspnea at rest. No headache. No neck stiffness. No sore throat. The reports that the patient intermittently has runny nose. No chest or abdominal pain. Currently, no frequency or dysuria. No hematuria. No pruritus or rash. PHYSICAL EXAMINATION: GENERAL: He is an adult male. He is alert, responsive, coherent. He appears nontoxic and is in no acute distress. VITAL SIGNS: Maximum temperature recorded was at representation of 100 degrees Fahrenheit. Most recent temperature 97.7. He is hemodynamically stable. SKIN EXAMINATION: Shows old ecchymosis and bruising of his upper extremities. There is no gross pallor. No obvious icterus. HEENT: No oropharyngeal lesions. NECK: Supple. CHEST: Symmetric. LUNG: Sounds clear to auscultation. HEART: Sounds are irregular. There is a soft systolic murmur. ABDOMEN: Full, soft, nontender with normal bowel sounds. There is no acute erythema of his extremities, otherwise. LABORATORY DATA: His white count 1.6 at presentation 2.0 on June 14, 1.7 currently, hemoglobin 8.1 and platelet count 404. Differentials on the white count appeared unremarkable. His serum creatinine is currently 1.1 and creatinine was 1.3 at presentation. Blood cultures are as reported above. There are no other culture reports. There is a CT scan of the abdomen and pelvis from June 14 with findings of cardiomegaly and pulmonary enlargement, there is congestive heart failure with bilateral atelectasis and small right pleural effusion. There are findings of old granulomatous disease within the chest and abdomen. There is colonic diverticulosis without evidence of diverticulitis. There are bilateral fat containing inguinal hernias. Otherwise, this study is unremarkable. There is a CT of the chest from June 14, 2019 with similar findings above. IMPRESSION: This 84-year-old male is admitted to hospital with congestive heart failure exacerbation. He has had two sets of blood cultures drawn reported positive with gram-positive cocci in clusters. At presentation, he had low-grade temperatures. He does have a history of cytopenias. It is not clear at this point whether the blood cultures that grew positive culture or due to contamination. If the isolate is Staph aureus, he will need treatment for bloodstream infection and follow workup including echocardiogram. If the isolate is coagulase-negative Staph, no specific treatment would need to be given. Antibiotics will be considered to be discontinued at that point. I discussed the findings and plans of treatment with the patient and his at the bedside. I will discuss the patient with the primary physicians whom I thank for the consult and opportunity to participate in the patient's care. MD ALANIS Rg/NATALIE /[id number]
[2019-06-16 05:39] LABS: EOSINOPHILS % 0.5 % (0.0-6.0); HEMATOCRIT 25.2 % (38.2-49.6); LYMPHOCYTES # (AUTO) 0.8 (1.0-3.2); MEAN CORPUSCULAR HEMOGLOBIN 27.3 pg (28-32); MEAN CORPUSCULAR HGB CONC 31.7 g/dL (31-35); MONOCYTES # (AUTO) 0.1 (0.2-0.8); MONOCYTES % 3.4 % (4.4-11.3); NEUTROPHILS # (AUTO) 1.2 (2.1-6.9); NEUTROPHILS % 57.1 % (38.7-80.0); PLATELET COUNT 351 x10e3/uL (140-360); RED BLOOD COUNT 2.93 x10e6/uL (4.3-5.7); RED CELL DISTRIBUTION WIDTH 21.8 % (11.7-14.4)
[2019-06-16 06:15] LABS: BLOOD UREA NITROGEN 25 mg/dL (7-26); BUN/CREATININE RATIO 23 (6-25); CALCIUM 9.6 mg/dL (8.4-10.2); CARBON DIOXIDE 23 mmol/L (22-29); CHLORIDE 103 mmol/L (98-107); CREATININE, SERUM 1.11 mg/dL (0.72-1.25); EST GLOMERULAR FILTRATION RATE > 60 ML/MIN (60-); GLUCOSE 106 mg/dL (74-118); SODIUM 136 mmol/L (136-145)
[2019-06-16 07:05] LABS: ANISOCYTOSIS SLIGHT; MICROCYTOSIS SLIGHT
[2019-06-16 07:08] LABS: PLATELET ESTIMATE ADEQUATE; PLATELET MORPHOLOGY COMMENT FEW GIANT
--- NOTE | 2019-06-16 07:10 | NUR ---
RCD PT AT BED PT IS ALERT AND ORIENTED AND PT RESTING ON BED IV PATENT BY SALINE FLUSH PATENT BED LOW AND LOCKED CALL LIGHT IN REACH
[2019-06-16] MEDS: INSULIN LISPRO 100 UNIT/1 ML 3ML VIAL SQ SCH ×4 (07:30→21:00)
[2019-06-16] MEDS: PANTOPRAZOLE SOD 40 MG TABEC PO SCH (07:30)
[2019-06-16] MEDS: FLUTICASONE PROPIONATE NASAL SPRAY NS SCH ×2 (09:00→16:52)
[2019-06-16] MEDS: CYANOCOBALAMIN 1,000 MCG TAB PO SCH (09:00)
[2019-06-16] MEDS: VANCOMYCIN 1GM/NS 250 ML 250 ML IV SCH (09:00)
[2019-06-16] MEDS: CEFEPIME 1GM/NS 0.9% 50 ML 50 ML IV SCH (09:00)
[2019-06-16] MEDS: PYRIDOXINE HCL 50 MG TAB PO SCH (09:00)
[2019-06-16] MEDS: FUROSEMIDE INJ 10 MG/ML 4 ML VIAL IV SCH (09:00)
[2019-06-16] MEDS: ATENOLOL 50 MG TAB PO SCH ×2 (09:00→16:52)
[2019-06-16] MEDS: POTASSIUM CHLORIDE 20 MEQ TAB CR PO SCH ×2 (09:00→16:52)
[2019-06-16] MEDS: HYDROXYZINE HCL 25 MG TAB PO SCH ×2 (09:00→15:00)
[2019-06-16] MEDS: ACETAMINOPHEN/CODEINE 300MG - 30MG TAB PO PRN (17:58)
--- NOTE | 2019-06-16 18:39 | NUR ---
PT RESTING ON BED BED SIDE REPORT GIVEN TO ONCOMING NURSE
--- NOTE | 2019-06-16 20:07 | NUR ---
attempted to see pt but he has refused twice today Addendum: 06/16/19 at 2008 by Harish Milner SLOT HOST Amended: Links added.
[2019-06-16] MEDS ORDERED: ACETAMINOPHEN 325 MG TAB PO STA (20:22)
[2019-06-16] MEDS ORDERED: SODIUM CHLORIDE 0.9% 250ML 250 ML IV ONE (20:30)
[2019-06-16] MEDS ORDERED: FUROSEMIDE INJ 10 MG/ML 2 ML VIAL IV ONE (20:30)
[2019-06-17] VITALS (10 sets, daily range): BP systolic 136–178; BP diastolic 69–88
--- NOTE | 2019-06-17 00:40 | Consultation ---
DATE OF CONSULTATION: 06/16/2019 Cardiology Consult Note REASON FOR CONSULT: Acute on chronic congestive heart failure. CHIEF COMPLAINT: Shortness of breath. HISTORY OF PRESENT ILLNESS: An 84-year-old man with history of systolic CHF, who presents with shortness of breath and worsening lower extremity edema. He has also performed leukopenia and anemia. We will start on diuretics and now feels much better with history of chronic kidney disease, hypertension and hyperlipidemia. PAST MEDICAL HISTORY: 1. Pancytopenia. 2. Chronic systolic CHF. 3. Hypertension. 4. Hyperlipidemia. 5. Diabetes. 6. BPH. SOCIAL HISTORY: He does not smoke, drink, or abuse drugs. FAMILY HISTORY: Noncontributory. MEDICATIONS: Please see MAR for outpatient medications list which was reviewed. ALLERGIES: HE IS ALLERGIC TO CIPROFLOXACIN. REVIEW OF SYSTEMS: As per HPI, otherwise negative. PHYSICAL EXAMINATION: VITAL SIGNS: Temperature afebrile, pulse 54, respiratory rate 18, blood pressure 136/58, saturating 97% on 2 L nasal cannula. GENERAL: Elderly man in no acute distress. CARDIOVASCULAR: Regular rate and rhythm. No murmurs, rubs, or gallops. LUNGS: Decreased breath sounds in bilateral bases. ABDOMEN: Soft, nontender, nondistended. NEURO AND PSYCH: Alert and oriented to person, place, and time. Normal affect. EXTREMITIES: Lower extremity is 1+ edema to midshin, bilateral lower extremities. INPATIENT MEDICATIONS: Reviewed. LABORATORY DATA: Reviewed, significant for white blood cell count of 1.7, hemoglobin is 8.1. BNP on admission was 1225. Troponin negative. IMAGING DATA: Reviewed. Chest x-ray shows pulmonary edema. Chest CT shows cardiomegaly and pulmonary edema with some small pleural effusion. ASSESSMENT: 1. Acute on chronic systolic heart failure exacerbation. 2. Coag-negative staph bacteremia. PLAN: Echocardiogram has been done. Final results are pending. As he is having some mixed valvular lesions, the patient may require JEWELL. Given a new onset of heart failure symptoms, the patient will require ischemic evaluation as well. Continue IV diuretics for now. We will continue to follow cultures. Thank you for this consult. MD MANUEL CaldwellP/MODL /[id number]
[2019-06-17] MEDS: HYDROXYZINE HCL 25 MG TAB PO SCH ×4 (02:07→20:59)
[2019-06-17] MEDS: TAMSULOSIN HCL 0.4 MG CAP PO SCH ×2 (02:07→20:59)
[2019-06-17] MEDS: FINASTERIDE 5 MG TAB PO SCH ×2 (02:07→20:59)
[2019-06-17] MEDS: FOLIC ACID 1 MG TAB PO SCH ×2 (02:07→20:59)
[2019-06-17] MEDS ORDERED: ACETAMINOPHEN 325 MG TAB ONE (03:40)
--- NOTE | 2019-06-17 05:48 | NUR ---
Elevated bp was reported to Dr. Duval. had an order for amlodipine 5mg bid
[2019-06-17] MEDS: AMLODIPINE BESYLATE 5 MG TAB PO SCH ×3 (06:28→17:00)
--- NOTE | 2019-06-17 06:45 | NUR ---
patient endorsed to next shift for continuity of care.
--- NOTE | 2019-06-17 07:00 | NUR ---
RCD PT AT BED PT IS ALERT AND ORIENTED AND PT RESTING ON BED NO IV ACCESS FOR THE PATENT FAMILY AT BED SIDE BED LOW AND LOCKED CALL LIGHT IN REACH Addendum: 06/17/19 at 1536 by Gina Ontiveros RN WRONG PT
[2019-06-17] MEDS: INSULIN LISPRO 100 UNIT/1 ML 3ML VIAL SQ SCH ×4 (07:30→20:47)
[2019-06-17] MEDS: PANTOPRAZOLE SOD 40 MG TABEC PO SCH (07:30)
[2019-06-17] MEDS: PYRIDOXINE HCL 50 MG TAB PO SCH (09:00)
[2019-06-17] MEDS: VANCOMYCIN 1GM/NS 250 ML 250 ML IV SCH (09:00)
[2019-06-17] MEDS: POTASSIUM CHLORIDE 20 MEQ TAB CR PO SCH ×2 (09:00→17:00)
[2019-06-17] MEDS: CYANOCOBALAMIN 1,000 MCG TAB PO SCH (09:00)
[2019-06-17] MEDS: FUROSEMIDE INJ 10 MG/ML 4 ML VIAL IV SCH (09:00)
[2019-06-17] MEDS: ATENOLOL 50 MG TAB PO SCH ×2 (09:00→17:00)
[2019-06-17] MEDS: FLUTICASONE PROPIONATE NASAL SPRAY NS SCH ×2 (09:00→17:00)
[2019-06-17] MEDS ORDERED: SODIUM CHLORIDE 0.9% 250ML 250 ML ONE ×2 (10:54→14:55)
[2019-06-17 13:58] LABS: HEMOGLOBIN 9.4 g/dL (14.0-18.0); LYMPHOCYTES # (AUTO) 0.9 (1.0-3.2); LYMPHOCYTES % 36.6 % (18.0-39.1); MEAN CORPUSCULAR HEMOGLOBIN 27.6 pg (28-32); MEAN CORPUSCULAR HGB CONC 31.3 g/dL (31-35); MEAN CORPUSCULAR VOLUME 88.2 fL (81-99); MONOCYTES # (AUTO) 0.1 (0.2-0.8); MONOCYTES % 2.8 % (4.4-11.3); NEUTROPHILS # (AUTO) 1.5 (2.1-6.9); NEUTROPHILS % 60.2 % (38.7-80.0); PLATELET COUNT 412 x10e3/uL (140-360)
--- NOTE | 2019-06-17 14:55 | NUR ---
BLOOD TRANSFUSION STARTED AFTER VERIFIED WITH ANOTHER RN AND AFTER VITALS SPEND 15 MTS WITH PT PT RESTING ON BED FAMILY AT BED SIDE
[2019-06-17 15:36] LABS: EOSINOPHILS % 0.9 % (0.0-6.0); HEMATOCRIT 28.9 % (38.2-49.6); HEMOGLOBIN 9.2 g/dL (14.0-18.0); LYMPHOCYTES # (AUTO) 0.8 (1.0-3.2); LYMPHOCYTES % 35.5 % (18.0-39.1); MEAN CORPUSCULAR HEMOGLOBIN 28.3 pg (28-32); MEAN CORPUSCULAR HGB CONC 31.8 g/dL (31-35); MEAN CORPUSCULAR VOLUME 88.9 fL (81-99); MONOCYTES # (AUTO) 0.1 (0.2-0.8); NEUTROPHILS # (AUTO) 1.4 (2.1-6.9); NEUTROPHILS % 60.2 % (38.7-80.0); PLATELET COUNT 414 x10e3/uL (140-360); RED BLOOD COUNT 3.25 x10e6/uL (4.3-5.7); RED CELL DISTRIBUTION WIDTH 20.9 % (11.7-14.4)
[2019-06-17 17:15] LABS: EOSINOPHILS % (MANUAL) 1 % (0-7); LYMPHOCYTES % (MANUAL) 32 % (19-48); MONOCYTES % (MANUAL) 3 % (3.4-9.0); NEUTROPHILS % (MANUAL) 63 % (40-74); PROMYELOCYTES % (MANUAL) 1 % (0-0)
[2019-06-17 17:16] LABS: HYPOCHROMASIA SLIGHT; PLATELET MORPHOLOGY COMMENT FEW GIANT; RBC MORPHOLOGY COMMENT NORMAL
[2019-06-17 17:17] LABS: PLATELET ESTIMATE SLIGHTLY INCREASED
--- NOTE | 2019-06-17 17:50 | NUR ---
BLOOD TRANSFUSION COMPLETED VITALS CHECKED PT HAVE SOME REDNESS PT RESTING ON BED FAMILY AT BED SIDE
[2019-06-17] MEDS: ACETAMINOPHEN/CODEINE 300MG - 30MG TAB PO PRN (17:55)
--- NOTE | 2019-06-17 17:58 | Progress Note ---
DATE: 06/17/2019 ID cross cover for Dr. Castro. SUBJECTIVE: The patient is fairly stable. He is resting comfortably. He is not coughing. No dyspnea at rest. No vomiting. No diarrhea. No other systemic complaints reported. I met him receiving the blood transfusion. OBJECTIVE: VITAL SIGNS: His maximum temperature in the past 24 hours up to 98.7 degrees Fahrenheit. He is hemodynamically stable. HEENT: He has no pallor. No icterus. No oropharyngeal lesions. NECK: Supple. CHEST: Symmetric. LUNGS: Clear. HEART: Sounds are regular. There is no new murmur. ABDOMEN: Soft. Bowel sounds are present. EXTREMITIES: There is no acute erythema of his extremities. LABORATORY DATA: His white count is 2.4, hemoglobin 9.4, and platelet count 412. Serum creatinine on June 16, 1.1. His blood cultures from June 13 grew coagulase-negative Staph, two different strains. Repeat blood cultures June 16, showed no growth. Urine culture showed no growth. IMPRESSION: He had contaminated blood cultures. He has leukopenia and anemia. The etiology is unclear. He is afebrile and stable from Infectious Disease point. I suggest discontinue all antibiotics and monitor the patient clinically. I am told that he is being seen by Hematology/Oncology. MD ALANIS Rg/NATALIE /[id number]
--- NOTE | 2019-06-17 18:30 | NUR ---
NOTIFIED THE BP LEVEL TO DR GUZMAN WHEN SHE CAME TO SEE THE PT GOT NEW ORDERS
--- NOTE | 2019-06-17 19:15 | NUR ---
PT RESTING ON BED BED SIDE REPORT GIVEN TO ONCOMING NURSE
[2019-06-18] VITALS (8 sets, daily range): BP systolic 122–187; BP diastolic 56–94
[2019-06-18 05:15] LABS: EOSINOPHILS % 0.5 % (0.0-6.0); HEMATOCRIT 29.4 % (38.2-49.6); HEMOGLOBIN 9.5 g/dL (14.0-18.0); LYMPHOCYTES # (AUTO) 0.8 (1.0-3.2); MEAN CORPUSCULAR HEMOGLOBIN 27.9 pg (28-32); MEAN CORPUSCULAR HGB CONC 32.3 g/dL (31-35); MEAN CORPUSCULAR VOLUME 86.5 fL (81-99); MONOCYTES # (AUTO) 0.1 (0.2-0.8); NEUTROPHILS # (AUTO) 1.1 (2.1-6.9); PLATELET COUNT 370 x10e3/uL (140-360); RED CELL DISTRIBUTION WIDTH 20.6 % (11.7-14.4)
[2019-06-18 05:37] LABS: ANION GAP 14.9 mmol/L (8-16); CALCIUM 9.9 mg/dL (8.4-10.2); CREATININE, SERUM 1.18 mg/dL (0.72-1.25); POTASSIUM 3.9 mmol/L (3.5-5.1)
[2019-06-18 07:07] LABS: PLATELET ESTIMATE ADEQUATE
[2019-06-18 07:08] LABS: RBC MORPHOLOGY COMMENT NORMAL
[2019-06-18] MEDS: INSULIN LISPRO 100 UNIT/1 ML 3ML VIAL SQ SCH ×4 (07:30→22:00)
[2019-06-18] MEDS: FLUTICASONE PROPIONATE NASAL SPRAY NS SCH ×2 (08:48→16:14)
[2019-06-18] MEDS: FUROSEMIDE INJ 10 MG/ML 4 ML VIAL IV SCH (08:48)
[2019-06-18] MEDS: VANCOMYCIN 1GM/NS 250 ML 250 ML IV SCH (08:48)
[2019-06-18] MEDS: HYDROXYZINE HCL 25 MG TAB PO SCH ×3 (09:00→22:00)
[2019-06-18] MEDS: AMLODIPINE BESYLATE 5 MG TAB PO SCH ×2 (09:00→16:14)
[2019-06-18] MEDS: ATENOLOL 50 MG TAB PO SCH ×2 (09:00→16:14)
[2019-06-18] MEDS: POTASSIUM CHLORIDE 20 MEQ TAB CR PO SCH ×2 (09:00→16:15)
[2019-06-18 09:44] LABS: INR 1.21; PROTHROMBIN TIME 15.9 seconds (11.9-14.5)
[2019-06-18] MEDS ORDERED: LORAZEPAM INJ 2 MG/ML VIAL IV ONE (10:00)
[2019-06-18] MEDS: CLONIDINE HCL 0.1 MG TAB PO PRN (11:21)
[2019-06-18] MEDS ORDERED: FENTANYL CITRATE/PF 100MCG/2 ML INJ ONE (13:51)
[2019-06-18] MEDS ORDERED: MIDAZOLAM HCL 2 MG/2 ML VIAL ONE (13:51)
[2019-06-18] MEDS ORDERED: LIDOCAINE HCL 1% LOCAL INJ 20 ML VIAL ONE (14:19)
--- NOTE | 2019-06-18 15:52 | NUR ---
Nutrition Screen Note RD Recommendation for Physician (06/18): Continue current diet per MD. Consider 1800 ADA diet pending glucose trends. Plan of Care: RD following, monitoring for tolerance and adequacy. Ensure Compact BID. Nutrition reason for involvement: LOS Primary Diagnose(s): PMH: 1. Pancytopenia. 2. Chronic systolic CHF. 3. Hypertension. 4. Hyperlipidemia. 5. Diabetes. 6. BPH. Ht:67 in Wt:178 lb BMI: 27.9 kg/m2 IBW: [address] Assessment: 06/18: 84 YOM admitted for fever with leukpenia. Pt was sleeping at time of visit, RD was able to speak with . She reported the pt has not been eating for the past couple of months, she was unaware of any weight loss because his weight fluctuates. Last weight in EMR is from January where the pt was 195 lbs, suggesting an 8.7% weight loss within about 6 months, but weight loss may also be related to fluid. She did state his appetite has been improving here in the hospital, the pt has been completing 75-100% of his meals. reports the pt is not having N/V, moving his bowels, no chewing or swallowing issues as well as no food allergies. reported she wanted the pt to consume Ensure during his stay here, reported this to nurse. Pt is having a bone marrow procedure today. Chart reviewed. Labs and meds reviewed. Will continue to monitor. Current Diet: cardiac diet Malnutrition Evaluation (06/18) The patient does not meet criteria for a specified degree of malnutrition at this time. Will re-evaluate at follow-up as appropriate. Energy intake: <75% of estimated energy requirements for >7 days Weight loss: >7.5% in 3 months (Chronic)- could be related to fluid Muscle loss: Mild-temporal wasting Diet Education Needs Assessment: Diet education indicated, pt not appropriate to educate at this time. Signed: Kaity Vega RD, MIRIAM
--- NOTE | 2019-06-18 15:55 | NUR ---
nutrition screen level: mod
[2019-06-18] MEDS: CYANOCOBALAMIN 1,000 MCG TAB PO SCH (16:15)
[2019-06-18] MEDS: PYRIDOXINE HCL 50 MG TAB PO SCH (16:15)
[2019-06-18] MEDS: PANTOPRAZOLE SOD 40 MG TABEC PO SCH (16:15)
--- NOTE | 2019-06-18 17:36 | Diagnostic Imaging Report ---
PROCEDURE: CT-guided bone marrow biopsy Procedural Personnel Attending physician(s): Louis Galvan MD Fellow physician(s): None Resident physician(s): None Advanced practice provider(s): None Pre-procedure diagnosis: Anemia Post-procedure diagnosis: Same Indication: Histopathologic diagnosis Previous biopsy of same target (QCDR): No Additional clinical history: None Complications: No immediate complications. IMPRESSION: CT-guided biopsy of left iliac bone marrow. Aspirates and core biopsy sample obtained. Plan: Specimen(s) sent for evaluation. PROCEDURE SUMMARY: - Percutaneous CT-guided bone marrow biopsy at the left iliac bone - Additional procedure(s): None PROCEDURE DETAILS: Pre-procedure Reference imaging for biopsy target: None Consent: Informed consent for the procedure including risks, benefits and alternatives was obtained and time-out was performed prior to the procedure. Preparation: The site was prepared and draped using maximal sterile barrier technique including cutaneous antisepsis. Anesthesia/sedation Level of anesthesia/sedation: No sedation (patient received Ativan on the floor prior to arriving for the procedure and was comfortably sedated). Anesthesia/sedation administered by: Independent trained observer under attending supervision with continuous monitoring of the patient?s level of consciousness and physiologic status Imaging prior to biopsy The patient was positioned prone. Initial imaging was performed using noncontrast CT. Biopsy target: - Maximal diameter (cm): Nonfocal - Location: Left iliac bone Other findings: None Biopsy Local anesthesia was administered. Under CT guidance, the biopsy needle was advanced to the target and biopsy was performed. Coaxial needle: 11 gauge Core needle biopsy device: Ren needle Core needle size: 11 gauge Number of core specimens: 1 Aspiration device: Ren needle Aspiration specimen: 2 green top syringes, slides made by [employer]. Needle removal The biopsy needle was removed and a sterile dressing was applied. Tract embolization: None Imaging following biopsy Immediate post-biopsy imaging was performed using noncontrast CT. Post-biopsy imaging findings: No hematoma Contrast Contrast agent: None Contrast volume (mL): [address] dose length product (mGy-cm): 786.9 Additional Details Additional description of procedure: None Equipment details: None Specimens removed: Biopsy samples as detailed above Estimated blood loss (mL): Less than 10 Standardized report: [id number] Attestation Signer name: Louis Galvan MD I attest that I was present for the entire procedure. I reviewed the stored images and agree with the report as written. Signed by: Louis Galvan MD on 06/18/2019 5:33 PM
--- NOTE | 2019-06-18 19:10 | NUR ---
Patient visited in room during nursing rounds. Patient alert and oriented x3. Hard of hearing on both ears. Pt ambulatory in room prn. No distress or discomfort noted. Call resendiz within reach. Will monitor closely.
--- NOTE | 2019-06-18 19:15 | NUR ---
Report given to oncoming nurse of patient's status. Resting in bed. AAOX3 to time, person, place. Respirations even and unlabored. Dressing to lower back clean, dry, and intact (s/p bone marrow aspiration). side rails upx2, call light within reach.
[2019-06-18] MEDS: FOLIC ACID 1 MG TAB PO SCH (22:00)
[2019-06-18] MEDS: FINASTERIDE 5 MG TAB PO SCH (22:00)
[2019-06-18] MEDS: TAMSULOSIN HCL 0.4 MG CAP PO SCH (22:00)
[2019-06-19] VITALS (8 sets, daily range): BP systolic 137–194; BP diastolic 61–102
--- NOTE | 2019-06-19 00:09 | Progress Note ---
DATE: 06/18/2019 Cardiology progress note SUBJECTIVE: The patient denies chest pain or shortness of breath. OBJECTIVE: VITAL SIGNS: Temperature 98.8 degrees, pulse 62, respiratory rate 16, blood pressure 164/81, and oxygen saturation 98% on 2 L nasal cannula. GENERAL: Elderly man, in no acute distress. Awake and alert. LUNGS: Clear to auscultation bilaterally. No wheezes or crackles. CARDIOVASCULAR: Normal rate, regular rhythm. No murmur. Normal S1, S2. ABDOMEN: Soft and nontender. EXTREMITIES: 1+ pitting edema bilateral lower extremities. CARDIAC MEDICATIONS: 1. Amlodipine 5 mg p.o. b.i.d. 2. Atenolol 25 mg p.o. b.i.d. LABORATORY DATA: WBC 2, hemoglobin 9.5, hematocrit 29.4, and platelets 370. Sodium 136, potassium 3.9, chloride 101, CO2 of 24, BUN 24, and creatinine 1.18. TELEMETRY: Normal sinus rhythm. IMPRESSION: 1. Acute on chronic systolic heart failure exacerbation. 2. Hypertension. 3. Hyperlipidemia. 4. Diabetes mellitus. 5. Pancytopenia. RECOMMENDATIONS: Bone marrow biopsy planned for today. Continue diuresis. If the patient is able to tolerate being flat, plan for nuclear stress test in the morning. Continue current cardiac medications. Noted bacteremia on blood cultures, however, per ID, this is contaminant. Antibiotics per Infectious Disease. Monitor the patient closely on telemetry. Thank you for this consult. We will continue to follow. Eduarda Solomon MD ABS/MODL /[id number] MTDD
--- NOTE | 2019-06-19 00:25 | NUR ---
Talked to patient and explained that Dr. Solomon has ordered pt to have Nuclear or treadmill stress test today (06/19/19). Pt NPO and has signed consent form.
[2019-06-19] MEDS: PANTOPRAZOLE SOD 40 MG TABEC PO SCH ×2 (06:38→12:57)
[2019-06-19] MEDS: INSULIN LISPRO 100 UNIT/1 ML 3ML VIAL SQ SCH ×4 (07:30→21:00)
[2019-06-19] MEDS: ATENOLOL 50 MG TAB PO SCH ×2 (09:00→15:44)
[2019-06-19] MEDS: POTASSIUM CHLORIDE 20 MEQ TAB CR PO SCH ×2 (09:00→15:42)
[2019-06-19] MEDS: FUROSEMIDE INJ 10 MG/ML 4 ML VIAL IV SCH ×2 (09:00→15:44)
[2019-06-19] MEDS: FLUTICASONE PROPIONATE NASAL SPRAY NS SCH ×2 (09:00→15:42)
[2019-06-19] MEDS: HYDROXYZINE HCL 25 MG TAB PO SCH ×3 (09:00→21:42)
[2019-06-19] MEDS: AMLODIPINE BESYLATE 5 MG TAB PO SCH ×2 (09:00→15:42)
[2019-06-19] MEDS ORDERED: REGADENOSON 0.4 MG/5 ML SYR IV ONE (09:55)
[2019-06-19] MEDS: PYRIDOXINE HCL 50 MG TAB PO SCH (12:57)
[2019-06-19] MEDS: CYANOCOBALAMIN 1,000 MCG TAB PO SCH (12:57)
[2019-06-19] MEDS: CLONIDINE HCL 0.1 MG TAB PO PRN (13:01)
--- NOTE | 2019-06-19 18:33 | NUR ---
Resting in bed semi fowlers position, side rails upx2, call light within reach, at bedside. No s/s of acute distress noted. Report to be given to oncoming nurse of patient's status.
--- NOTE | 2019-06-19 20:07 | NUR ---
Patient received asleep in bed. Arousable to tactile stimuli. No signs of pain or respiratory distress. Telemetry records patient's rhythm as SR with a HR of 71. Fall precautions implemented. Patient instructed to call for assistance when needed. Call light within reach.
[2019-06-19] MEDS: FINASTERIDE 5 MG TAB PO SCH (21:42)
[2019-06-19] MEDS: TAMSULOSIN HCL 0.4 MG CAP PO SCH (21:42)
[2019-06-19] MEDS: FOLIC ACID 1 MG TAB PO SCH (21:42)
[2019-06-20] VITALS: BP 150/76
--- NOTE | 2019-06-20 02:14 | Progress Note ---
DATE: 06/19/2019 Cardiology Progress Note SUBJECTIVE: The patient denies chest pain or shortness of breath. OBJECTIVE: VITAL SIGNS: Temperature 96.5 degrees, pulse 74, respiratory rate 18, blood pressure 123/87, and oxygen saturation 96%. GENERAL: Awake and alert, in no acute distress, elderly man. LUNGS: Clear to auscultation bilaterally. No wheezes or crackles. CARDIOVASCULAR: Normal rate, regular rhythm. No murmur. Normal S1 and S2. ABDOMEN: Soft, nontender. EXTREMITIES: 1+ pitting edema in bilateral lower extremities. CARDIAC MEDICATIONS: Furosemide 40 mg IV daily, atenolol 25 mg p.o. b.i.d., amlodipine 5 mg p.o. b.i.d. LABORATORY DATA: None today. TELEMETRY: Normal sinus rhythm. IMPRESSION: 1. Kiquo-ei-ggjokmk systolic heart failure exacerbation. 2. Hypertension. 3. Hyperlipidemia. 4. Diabetes mellitus. 5. Pancytopenia. RECOMMENDATIONS: Bone marrow biopsy has been totally done, results are pending. Continue diuresis. The patient had nuclear stress test done today with mild apical ischemia. LVEF was normal. Continue current cardiac medications. No further cardiac evaluation at this time. We will have the patient follow up in the office for further evaluation. Antibiotics per Infectious Disease. Monitor the patient closely on telemetry. Thank you for this consult. We will continue to follow. Eduarda Solomon MD ABS/MODL /[id number]
[2019-06-20 04:00] VITALS: BP 169/88
[2019-06-20] MEDS: CLONIDINE HCL 0.1 MG TAB PO PRN (05:59)
--- NOTE | 2019-06-20 07:00 | NUR ---
Shift report given to oncoming nurse.
--- NOTE | 2019-06-20 07:00 | NUR ---
BEDSIDE SHIFT REPORT RECEIVED FROM THE GLASS ROLLING MACHINE OPERATOR RN. EDUCATED PT ABOUT FALL PRECAUTIONS. BED IS LOW AND LOCKED. CALL LIGHT WITH IN EASY REACH. INFORMED PT TO CALL FOR ANY NEEDS. PT VERBALIZED UNDERSTANDING. PT FAMILY AT BEDSIDE. PT DENIES NEEDS AT THIS TIME.
[2019-06-20] MEDS: INSULIN LISPRO 100 UNIT/1 ML 3ML VIAL SQ SCH ×3 (07:30→17:30)
[2019-06-20 08:00] VITALS: BP 151/79
[2019-06-20] MEDS: HYDROXYZINE HCL 25 MG TAB PO SCH ×2 (08:02→16:00)
[2019-06-20] MEDS: POTASSIUM CHLORIDE 20 MEQ TAB CR PO SCH ×2 (08:02→16:10)
[2019-06-20] MEDS: AMLODIPINE BESYLATE 5 MG TAB PO SCH ×2 (08:02→16:10)
[2019-06-20] MEDS: FUROSEMIDE INJ 10 MG/ML 4 ML VIAL IV SCH (08:02)
[2019-06-20] MEDS: CYANOCOBALAMIN 1,000 MCG TAB PO SCH (08:03)
[2019-06-20] MEDS: PYRIDOXINE HCL 50 MG TAB PO SCH (08:03)
[2019-06-20] MEDS: ATENOLOL 50 MG TAB PO SCH ×2 (08:03→16:10)
[2019-06-20 08:19] VITALS: BP 151/79
--- NOTE | 2019-06-20 08:30 | NUR ---
Spoke with Dr. Hurst, informed him that PT was recommending home health. Gave order to set up home health if pt was agreeable. States will see pt later and decide if pt can discharge.
[2019-06-20] MEDS: FLUTICASONE PROPIONATE NASAL SPRAY NS SCH ×2 (10:00→17:30)
[2019-06-20 12:00] VITALS: BP 133/67
--- NOTE | 2019-06-20 12:40 | NUR ---
CM spoke with pt at bedside regarding home health. Pt is agreeable to having home health services. States he previously used [facility] and would like to use them if they are still in network with his insurance. If unable to send to [facility], he does not have preference for home health company as long as they are in network. Choice letter signed for [facility], [facility], [facility], and [facility] and placed in chart. Copy to pt's at bedside. CM also discussed Medicare Rights with pt and his . They verbalized understanding. Signed copy of IMM placed in chart. Copy to pt's . CM left business card with and also wrote contact information on white board for any additional questions/concerns. CM called and spoke to intake at [facility]. States they are currently taking [facility] patient. CM informed of referral and anticipated discharge for today. Referral was faxed to [facility] at [phone] / P [phone].
[2019-06-20 16:00] VITALS: BP 134/74
[2019-06-20] MEDS: ACETAMINOPHEN/CODEINE 300MG - 30MG TAB PO PRN (16:15)
[2019-06-20] MEDS ORDERED: ECOTRIN81 MG PO (17:52)
[2019-06-20] MEDS ORDERED: POTASSIUM CHLO10 ME1 PO (17:53)
[2019-06-20] MEDS ORDERED: FUROSEMIDE40 MG PO (17:55)
[2019-06-20] MEDS ORDERED: LASIX20 MG PO (17:55)
--- NOTE | 2019-06-20 18:20 | NUR ---
PT DISCHARGED HOME SAFELY WITH DAUGHTER. PT ESCORTED VIA WHEEL CHAIR TO THE FRONT ENTRANCE. TELE AND IV REMOVED. TIP INTACT. DRESSING APPLIED.RX GIVEN. PT DENIED FURTHER NEEDS.
--- NOTE | 2019-06-20 20:29 | Progress Note ---
DATE: 06/20/2019 Cardiology Progress Note SUBJECTIVE: The patient denies chest pain or shortness of breath. OBJECTIVE: VITAL SIGNS: Temperature 98 degrees, pulse 66, respiratory rate 15, blood pressure 134/74, and oxygen saturation 97% on room air. GENERAL: Awake, alert, no acute distress. LUNGS: Clear to auscultation bilaterally. No wheezes or crackles. CARDIOVASCULAR: Normal rate, regular rhythm. No murmur. Normal S1, S2. ABDOMEN: Soft, nontender. EXTREMITIES: Trace edema. CARDIAC MEDICATIONS: Amlodipine 5 mg p.o. b.i.d., atenolol 25 mg p.o. b.i.d., furosemide 40 mg IV daily. LABORATORY DATA: None today. TELEMETRY: Normal sinus rhythm. IMPRESSION: 1. Mggiy-nd-yiugmhu systolic heart failure. 2. Hypertension. 3. Hyperlipidemia. 4. Diabetes mellitus. 5. Pancytopenia. RECOMMENDATIONS: Continue current cardiac medications. Nuclear stress test showed mild apical ischemia with normal LVEF. Add aspirin 81 mg p.o. daily. Recommend discharge on low-dose diuretic to keep the patient even. Please have patient follow up in the office in two weeks. The patient has expressed preference for conservative medical therapy. Further discussion in the office with his primary outpatient email developer, Dr. Esquivel. Antibiotics per Infectious Disease. Thank you for this consult. We will continue to follow. Eduarda Solomon MD ABS/MODL /[id number]
--- NOTE | 2019-06-20 20:55 | Discharge Summary ---
CONSULTANTS: 1. Dr. Rosie Solomon. 2. Dr. Miles Daley. 3. Dr. Baudilio Castro. FINAL DIAGNOSES: 1. Pancytopenia, status post bone marrow biopsy, pending results. The patient is to follow up with Dr. Daley. 2. Chest pain, status post cardiac stress test. No significant ischemic or reversible ischemia changes. The patient to go home with low-dose Lasix and Ecotrin 81 mg daily. 3. Contamination of the blood culture, grew out the Staph epidermidis. Antibiotics discontinue. 4. Fever could be secondary to upper respiratory infection, completely resolved. 5. Hypertension. 6. Bradycardia, much improved with adjustment of medication. SUMMARY: This is an 84 years old male, came to the hospital with weakness and some fever. The patient with leukopenia, WBC is 2. He does have congestive heart failure exacerbation with fluid overload. The patient was given IV furosemide. The patient is stable. He is doing much better. The blood culture grew out to be Staphylococci aureus coagulase negative most consistent with contamination. Repeat blood culture was negative. The patient subsequently had a bone marrow biopsy. It was done by Interventional Radiology ordered by Dr. Miles Daley. The patient is stable. No bleed. Hemoglobin and hematocrit are 9.5 and 29.4. WBC is 2, platelets 370. BUN and creatinine are 24 and 1.8 respectively. Potassium is 3.9. Liver enzyme is normal. IMAGING TESTS: The patient had an abdominal and pelvic CT scan and also chest CT as well without any significant new finding. The patient is stable. He does have cardiomegaly and pulmonary enlargement finding suggestive of mild congestive heart failure, bilateral atelectasis, and small right pleural effusion could be contributed to the patient's fever. Colonic diverticulosis without evidence of diverticulitis. Bilateral fat containing inguinal hernias. Unremarkable noncontrast examination overall on the abdomen. The patient is stable now. Serology, negative hep B, hep B core antibody, hep B antigen negative, and hepatitis C antibody negative. HIV-1 and 2 antigen antibody was negative. Other immunology test; AMAYA screen was negative. Rheumatoid factor was less than 10, which is negative. The patient is otherwise stable. The patient will go home today. Adjustment of his medication is made. He will continue with home medication, but stop antibiotics. Furosemide will change from 20 mg twice a day to 20 mg once a day. He will hold off on the potassium at this time. The patient will take a low-dose Ecotrin 81 mg daily. He will follow up with Dr. Daley in 1-[address] Solomon in approximately one week. The patient is otherwise stable to discharge home today. Follow up as an outpatient. The patient is stable to discharge home. Continue with other home medications. MD JUAN Molina/NATALIE /[id number]
--- NOTE | 2019-06-21 04:26 | Progress Note ---
DATE: 06/16/2019 This is ID cross cover for Dr. Castro. SUBJECTIVE: The patient is resting comfortably in bed. is at the bedside. The patient offers no new complaints. He is not coughing much currently. No dyspnea at rest on oxygen by nasal cannula. No gastrointestinal or genitourinary complaints. OBJECTIVE: VITAL SIGNS: Maximum temperature in the past 24 hours up to 98.2 degrees Fahrenheit. GENERAL: He is hemodynamically stable. HEENT: He has no gross pallor. There is no obvious icterus. No oropharyngeal lesions. NECK: Supple. CHEST: Symmetric. LUNGS: Sound clear. HEART: Sounds are slightly irregular. There is a soft systolic murmur. ABDOMEN: Full, soft, nontender with normal bowel sounds. There is old ecchymosis of the upper extremities. No acute erythema otherwise. LABORATORY DATA: His white count is 2.0, hemoglobin 8.0, platelet count 351. His serum creatinine is 1.1. Urine culture from June 15 is in progress. Blood cultures collected at the same time on June 13 are showing two different strains of coagulase negative Staph. A repeat blood culture has been ordered today. IMPRESSION: This patient has a contaminated blood culture; he has no central lines. No Port-A-Cath. He is being evaluated for a urinary tract infection. His urinalysis appears benign. He has no genitourinary complaints. I suggest to discontinue the antibiotics and monitor the patient clinically. I have discussed the findings and impressions with the patient and the family at the bedside. MD ALANIS Rg/NATALIE /[id number]
--- NOTE | 2019-06-28 02:55 | Myoview Stress Test ---
DATE OF STUDY: 06/18/2019 21:40:00 Stress Test - Treadmill ONLY PROCEDURE PERFORMED: Lexiscan nuclear stress test. TECHNIQUE: The patient was stressed using 1 minute intravenous infusion of Lexiscan. Rest and stress Myoview imaging was obtained. Normal contractility of the left ventricle. Small perfusion defect noted in the stress images in the left ventricular apex. Rest images are normal. CONCLUSIONS: 1. Abnormal Lexiscan nuclear stress test showing mild apical ischemia. 2. LV ejection fraction is 58%. MD OZZY WilburnB/MODL /[id number]
== END 2019-06-20 18:33 | disposition home health service (06) | DRG 291 ==
LOC: ER 17:28 → ERHOLD 21:55 → MED/SURG 22:19 → MED/SURG2 06-14 11:53
PROVIDERS: ADMIT Internal Medicine Cardiovascular Disease; ATTEND Internal Medicine
PROC: 07DR3ZX Extraction of Iliac Bone Marrow, Percutaneous Approach, Diagnostic (ICD-10-PCS; principal; 2019-06-18)
PROC: 30233N1 Transfusion of Nonautologous Red Blood Cells into Peripheral Vein, Percutaneous Approach (ICD-10-PCS; 2019-06-18)
DX: I13.0 Hypertensive heart and chronic kidney disease with heart failure and stage 1 through stage 4 chronic kidney disease, or unspecified chronic kidney disease (principal); I50.23 Acute on chronic systolic (congestive) heart failure; D61.818 Other pancytopenia; N13.8 Other obstructive and reflux uropathy; D72.819 Decreased white blood cell count, unspecified; N18.9 Chronic kidney disease, unspecified; D50.0 Iron deficiency anemia secondary to blood loss (chronic); N40.1 Benign prostatic hyperplasia with lower urinary tract symptoms; J06.9 Acute upper respiratory infection, unspecified; E11.22 Type 2 diabetes mellitus with diabetic chronic kidney disease; K57.90 Diverticulosis of intestine, part unspecified, without perforation or abscess without bleeding; E78.5 Hyperlipidemia, unspecified; Z87.891 Personal history of nicotine dependence
CPT/HCPCS: 36415; 38222; 71045; 71250; 74176; 74470; 77012; 78452; 80048; 80053; 80202; 81001; 82550; 82553; 82607; 82728; 82746; 82948; 83036; 83540; 83605; 83880; 84145; 84443; 84466; 84484; 85025; 85610; 85651; 86039; 86140; 86431; 86704; 86706; 86803; 86850; 86900; 86920; 87040; 87071; 87086; 87186; 87205; 87340; 87390; 93005; 93017; 93306; 97139; 99285; A9502; G0433; G0435; J0360; J0692; J0696; J1940; J2001; J2060; J2250; J3010; J3370; J3410; J7050; P9016

== ENCOUNTER 2019-07-03 13:06 | Inpatient (IN) | payer OTHER ==
[~2019-07-03] VITALS: Ht 167.6 cm; Wt 84.9 kg
[~2019-07-03 13:06] MED LIST changes: +ADVIL200 M1 PO; +AUGMENTIN 875-1 EACH PO; +ECOTRIN81 MG PO; +FERROUS SULFAT325 MG PO; +FUROSEMIDE40 MG PO; +HYDROXYZINE HCL25 MG PO; +LASIX20 MG PO; +LEVOCETIRIZINE D5 MG PO; +POTASSIUM CHLO10 ME1 PO; +VITAMIN B-121000 MCG PO; +VITAMIN B-650 MG PO; +VITAMIN D31000 UNIT PO
[2019-07-03] MEDS ORDERED: SODIUM CHLORIDE 0.9% 1000ML 1,000 ML IV ONE (13:30)
[2019-07-03] MEDS ORDERED: SODIUM CHLORIDE 0.9% 1000ML 1,000 ML ONE (13:33)
[2019-07-03 14:00] LABS: HEMATOCRIT 27.7 % (38.2-49.6); HEMOGLOBIN 8.8 g/dL (14.0-18.0); LYMPHOCYTES # (AUTO) 0.3 (1.0-3.2); LYMPHOCYTES % 11.1 % (18.0-39.1); MEAN CORPUSCULAR HEMOGLOBIN 27.9 pg (28-32); MEAN CORPUSCULAR HGB CONC 31.8 g/dL (31-35); MEAN CORPUSCULAR VOLUME 87.9 fL (81-99); MONOCYTES # (AUTO) 0.1 (0.2-0.8); MONOCYTES % 2.9 % (4.4-11.3); NEUTROPHILS # (AUTO) 2.4 (2.1-6.9); NEUTROPHILS % 85.6 % (38.7-80.0); PLATELET COUNT 335 x10e3/uL (140-360); RED BLOOD COUNT 3.15 x10e6/uL (4.3-5.7); RED CELL DISTRIBUTION WIDTH 20.8 % (11.7-14.4)
[2019-07-03] MEDS: VANCOMYCIN 1GM/NS 250 ML 250 ML IV SCH (14:00)
[2019-07-03] MEDS: CEFEPIME 2 GM/NS 0.9% 100 ML 100 ML IV SCH (14:00)
[2019-07-03 14:20] LABS: ALBUMIN 3.8 g/dL (3.5-5.0); ALBUMIN/GLOBULIN RATIO 1.2 (0.8-2.0); ANION GAP 18.1 mmol/L (8-16); CREATININE, SERUM 1.29 mg/dL (0.72-1.25); POTASSIUM 4.1 mmol/L (3.5-5.1)
[2019-07-03] MEDS ORDERED: ONDANSETRON HCL INJ 2MG/ML 2ML 2 MG/ML VIAL IV PRN (14:45)
[2019-07-03] MEDS ORDERED: SODIUM CHLORIDE FLUSH 10 ML SYR INJ PRN (14:45)
--- NOTE | 2019-07-03 15:08 | Diagnostic Imaging Report ---
EXAMINATION: CHEST SINGLE (PORTABLE) INDICATION: Fever COMPARISON: None FINDINGS: LINES/TUBES:None LUNGS:The lungs are moderately inflated. There is perihilar fullness and indistinctness of the pulmonary vasculature. No focal consolidation. PLEURA:No pleural effusion or pneumothorax. MEDIASTINUM:The cardiomediastinal silhouette is at the upper limits of normal for size. BONES/SOFT TISSUES:No acute osseous injury. Metallic anchor at the proximal humerus. ABDOMEN:No free air under the diaphragm. IMPRESSION: Mild pulmonary edema. Heart at the upper limits of normal for size. No focal pneumonia. Signed by: Louis Galvan MD on 07/03/2019 3:05 PM
[2019-07-03] MEDS: ACETAMINOPHEN 1000 MG/100 ML IV STA ×2 (16:22→17:00)
[2019-07-03] MEDS ORDERED: ACETAMINOPHEN 1000 MG/100 ML 100 ML IV ONE (17:20)
[2019-07-03 17:52] LABS: CLARITY,URINE SL CLOUDY (CLEAR); COLOR,URINE YELLOW (YELLOW); PROTEIN,URINE DIPSTICK 1+ (NEGATIVE); URINE UROBILINOGEN 0.2 mg/dL (0.2 - 1)
[2019-07-03 17:53] LABS: BILIRUBIN,URINE NEGATIVE (NEGATIVE); KETONES,URINE NEGATIVE (NEGATIVE); LEUKOCYTE ESTERASE ,URINE NEGATIVE (NEGATIVE); NITRITE,URINE NEGATIVE (NEGATIVE)
--- NOTE | 2019-07-03 18:03 | NUR ---
Received patient via stretcher from ER. Accompanied by . AAOX3 to time, person, place. Respirations even and unlabored. Oriented patient and family to room. Instructed patient to use call light for assistance. Voiced understanding. Side rails upx2, call light within reach.
[2019-07-03 18:05] LABS: EPITHELIAL CELLS,URINE RARE /LPF; RBC,URINE 0-5 /HPF (0-5)
--- NOTE | 2019-07-03 19:20 | NUR ---
Patient visited in room during nursing rounds. Patient alert and oriented x.3 Ambulates with standby assist using walker prn. at bedside. On scheduled IV antibiotics. Will call Dr. Hurst for further med orders especially Tylenol for fever prn. On 2L NC. Call resendiz within reach. Will monitor closely.
[2019-07-03 20:00] VITALS: BP 159/73
[2019-07-03] MEDS ORDERED: LORATADINE 10 MG TAB PO PRN (22:30)
[2019-07-03] MEDS ORDERED: FLUTICASONE PROPIONATE NASAL SPRAY NS PRN (22:30)
[2019-07-03] MEDS: POTASSIUM CHLORIDE 10MEQ EA PO SCH (22:59)
[2019-07-03] MEDS: FINASTERIDE 5 MG TAB PO SCH (22:59)
[2019-07-03] MEDS: ATENOLOL 50 MG TAB PO SCH (22:59)
[2019-07-03] MEDS: TAMSULOSIN HCL 0.4 MG CAP PO SCH (22:59)
[2019-07-03 23:00] VITALS: BP 159/73
[2019-07-04] VITALS (9 sets, daily range): BP systolic 124–174; BP diastolic 58–85
--- NOTE | 2019-07-04 00:20 | NUR ---
Patient had large bowel movement in bed and in bathroom. Stool was soft brown in texture. Pt cleaned up and took a shower.
--- NOTE | 2019-07-04 02:00 | NUR ---
Patient went to bathroom and had another bowel movement. Stool was soft and formed.
[2019-07-04] MEDS ORDERED: SODIUM CHLORIDE 0.9% 250ML 250 ML ONE ×2 (02:09→21:47)
[2019-07-04] MEDS: ACETAMINOPHEN 325 MG TAB PO PRN ×2 (02:14→12:30)
[2019-07-04] MEDS: CEFEPIME 2 GM/NS 0.9% 100 ML 100 ML IV SCH ×2 (02:30→14:37)
[2019-07-04] MEDS: VANCOMYCIN 1GM/NS 250 ML 250 ML IV SCH (03:50)
[2019-07-04 06:00] LABS: HEMATOCRIT 24.8 % (38.2-49.6); LYMPHOCYTES # (AUTO) 0.4 (1.0-3.2); LYMPHOCYTES % 13.2 % (18.0-39.1); MEAN CORPUSCULAR HEMOGLOBIN 28.1 pg (28-32); MEAN CORPUSCULAR HGB CONC 32.3 g/dL (31-35); MONOCYTES # (AUTO) 0.1 (0.2-0.8); NEUTROPHILS # (AUTO) 2.5 (2.1-6.9); NEUTROPHILS % 83.1 % (38.7-80.0); PLATELET COUNT 262 x10e3/uL (140-360); RED BLOOD COUNT 2.85 x10e6/uL (4.3-5.7); RED CELL DISTRIBUTION WIDTH 20.4 % (11.7-14.4)
[2019-07-04 06:11] LABS: ALBUMIN 3.3 g/dL (3.5-5.0); ANION GAP 13.5 mmol/L (8-16); CALCIUM 9.5 mg/dL (8.4-10.2); CREATININE, SERUM 1.33 mg/dL (0.72-1.25); POTASSIUM 3.5 mmol/L (3.5-5.1)
[2019-07-04 07:11] LABS: HYPOCHROMASIA SLIGHT; PLATELET ESTIMATE ADEQUATE; PLATELET MORPHOLOGY COMMENT FEW LARGE
[2019-07-04] MEDS: FERROUS SULFATE 325 MG TAB PO SCH (09:53)
[2019-07-04] MEDS: GLIPIZIDE 5 MG TAB PO SCH ×2 (09:53→17:26)
[2019-07-04] MEDS: ASPIRIN 81 MG ENTERIC COATED PO SCH (09:53)
[2019-07-04] MEDS: FOLIC ACID 1 MG TAB PO SCH (09:54)
[2019-07-04] MEDS: PYRIDOXINE HCL 50 MG TAB PO SCH (09:54)
[2019-07-04] MEDS: CYANOCOBALAMIN 1,000 MCG TAB PO SCH (09:54)
[2019-07-04] MEDS: CHOLECALCIFEROL 1,000 UNIT TAB PO SCH (09:54)
[2019-07-04] MEDS: ATENOLOL 50 MG TAB PO SCH ×2 (09:55→17:26)
[2019-07-04] MEDS: LISINOPRIL 20 MG TAB PO SCH (09:55)
[2019-07-04] MEDS: FUROSEMIDE 20 MG TAB PO SCH ×2 (09:56→17:26)
[2019-07-04] MEDS: PANTOPRAZOLE SOD 40 MG TABEC PO SCH (09:56)
[2019-07-04] MEDS ORDERED: ACETAMINOPHEN 325 MG TAB PO ONE (18:20)
[2019-07-04] MEDS ORDERED: SODIUM CHLORIDE 0.9% 250ML 250 ML IV ONE (18:30)
[2019-07-04] MEDS ORDERED: FUROSEMIDE INJ 10 MG/ML 2 ML VIAL IV PRN (19:00)
[2019-07-04] MEDS: ACETAMINOPHEN/CODEINE 300MG - 30MG TAB PO PRN (19:22)
--- NOTE | 2019-07-04 19:22 | History and Physical ---
CHIEF COMPLAINT: Recurrent fever. PRIMARY CARE PHYSICIAN: Dr. Perez Saini. HISTORY OF PRESENT ILLNESS: The patient is an 84 years old male, had a complete workup including multiple imaging tests. Infectious Disease saw the patient on his last admission. The patient was subsequently discharged home on June 20. At that time, he was seen by Dr. Miles Daley and Dr. Baudilio Castro for basically fever and the cause of the fever was not known. The patient also has pancytopenia. He underwent bone marrow biopsy. Dr. Daley has the bone marrow result and the patient is essentially went home, stable. He came in this time with fever, recurrent associated with episodic now two-day of diarrhea. The workup so far blood cultures still pending. The urine culture, no significant abnormality and the patient also had a chest x-ray, otherwise no consolidation. His electrolytes normal. His WBC was 2.8 and his hemoglobin and hematocrit of 8.0 and 24.8. The patient's platelet is 262. The patient has basically anemia with isolated leukopenia as well. The patient is otherwise stable. He does not look septic and he is comfortable at this time. PAST MEDICAL HISTORY: Leukopenia, recurrent fever, chronic anemia, osteoarthritis, diabetes type 2, dyslipidemia, hypertension, systolic congestive heart failure, and BPH. PAST SURGICAL HISTORY: Knee surgery, bone marrow biopsy, right shoulder surgery, and cholecystectomy. SOCIAL HISTORY: The patient does not smoke or use alcohol. No recreational drugs. He lives with his family. ALLERGIES: TO CIPRO. HOME MEDICATIONS: List is reviewed. REVIEW OF SYSTEMS: As mentioned above. PHYSICAL EXAMINATION: VITAL SIGNS: T-max is 102.5, blood pressure 159/73, pulse rate is 66, and respirations 18. GENERAL: The patient is not in acute distress. HEENT: Normocephalic, atraumatic. Pupils reactive. Anicteric. NECK: Supple grossly. PULMONARY: Diminished breath sounds without any wheezing. CARDIOVASCULAR: S1, S2. Regular rate and rhythm. ABDOMEN: Soft. EXTREMITIES: No cyanosis or edema. NEUROLOGIC: No gross focal deficit. LABORATORY DATA: Sodium is 137, potassium 3.5, chloride 105, bicarb 22, BUN 26, creatinine 1.3, and glucose 99. WBC is 3.0, hemoglobin 8, hematocrit 24.8, and platelets is 262. IMPRESSION: 1. Fever. Cough not known. 2. Leukopenia associated with anemia. No gross bleed. 3. Status post recent bone marrow biopsy. PLAN: Consultation with Dr. Castro and Dr. Daley. Continue with home medication. We will monitor the patient closely and we will follow up on recommendation. MD JUAN Molina/NATALIE /[id number]
--- NOTE | 2019-07-04 20:33 | Consultation ---
DATE OF CONSULTATION: 07/04/2019 REASON FOR CONSULTATION: Recurrent fever. HISTORY OF PRESENT ILLNESS: Thank you, Dr. Hurst, for asking me to see this patient, who was admitted through the emergency department with fever of unknown origin. The patient presented to the emergency department with high fever and high blood pressure. Also, he has had intermittent nosebleed when he blows his nose, decreased appetite, multiple loose bowel movements a day, and generalized weakness. He denies cough, shortness of breath, nausea, vomiting, abdominal pain, or dysuria. In the emergency department, he was noted to have fever to 100 degrees Fahrenheit, pulse rate 84, respiratory rate 19, blood pressure 154/77, and oxygen saturation 97% on room air. Initial laboratory studies showed blood leukocyte count of 2800 with 85.6% neutrophils, BUN 24, creatinine 1.29, and negative urinalysis. Chest x-ray showed no focal pneumonia. The patient was admitted a few weeks ago with similar symptoms. Echocardiogram showed no vegetation. Also, chest CT and abdominal/pelvis CT scan showed the previous granulomatosis disease. The patient was evaluated by the Hematology service with a bone marrow biopsy and the pathology report is pending. PAST MEDICAL HISTORY: Diabetes mellitus type 2, hypertension, dyslipidemia, chronic kidney disease, leukopenia, and benign prostatic hyperplasia. PAST SURGICAL HISTORY: Cholecystectomy, knee surgery, and shoulder surgery. ALLERGIES: CIPRO. MEDICATIONS: The current antibiotics of cefepime 1 g IV piggyback q.12 hours and vancomycin 1 g IV piggyback q.12 hours. IMMUNIZATION: He received pneumococcal vaccination in the past. He has not received influenza vaccine this season. FAMILY HISTORY: Noncontributory. SOCIAL HISTORY: No alcohol, tobacco, or recreational drug use. REVIEW OF SYSTEMS: As per history of present illness. PHYSICAL EXAMINATION: GENERAL: No acute distress. Does not appear toxic. VITAL SIGNS: T-max 102.5, Temperature currently 100.7, pulse rate 66, respiratory rate 20, blood pressure 161/85, and weight 187 pounds. HEENT: Normocephalic. There is no icterus or injection of conjunctiva. There is no ear discharge. There is dry blood in the nose, but no active bleeding. Moist oral mucosa. No pharyngeal erythema or exudate. NECK: Supple. No meningismus. LUNGS: Clear to auscultation bilaterally. HEART: Normal S1 and S2. Regular. ABDOMEN: Soft and nontender. EXTREMITIES: No edema, clubbing, or cyanosis. SKIN: There is no rash or acute erythema. STATEMENT SERVICES REPRESENTATIVE: Awake, alert, and oriented to person, place, and time. Nonfocal. LABORATORY AND DIAGNOSTICS: WBC 3030, hemoglobin 8, platelet 262,000, neutrophils 83.1, lymphocytes 13.2, monocytes 3, eosinophils zero, basophils zero. BUN 26, creatinine 1.33, blood glucose 113, AST 36, ALT 19, alkaline phosphatase 74, total bilirubin 0.8. Rapid influenza test is negative. Blood culture is pending. IMPRESSION: 1. Fever of unknown origin. 2. Leukopenia and anemia, status post bone marrow biopsy. 3. Epistaxis. 4. Diabetes mellitus type 2, controlled. 5. Hypertension. 6. Dyslipidemia. 7. Chronic kidney disease, stage 2. 8. Benign prostatic hyperplasia. PLAN: 1. Check blood culture results, respiratory virus PCR, and procalcitonin. Await bone marrow pathology report. 2. Reduce vancomycin to 1 g IV piggyback q.24 hours. Monitor vancomycin trough closely. Administer influenza vaccination. 3. Await Hematology Service to discuss bone marrow pathology report. MD CARI Villeda/NATALIE /[id number]
[2019-07-04] MEDS: TAMSULOSIN HCL 0.4 MG CAP PO SCH (21:32)
[2019-07-04] MEDS: POTASSIUM CHLORIDE 10MEQ EA PO SCH (21:33)
[2019-07-04] MEDS: FINASTERIDE 5 MG TAB PO SCH (21:33)
--- NOTE | 2019-07-04 22:11 | NUR ---
BLOOD TRANSFUSION STARTED. NO SIGNS AND SYMPTOMS OF REACTION. PATIENT WITH LOW GRADE 99.0-99.5, PER DR. GUZMAN PRE MEDICATE WITH TYLENOL 650MG PO X 1.
[2019-07-05] VITALS (8 sets, daily range): BP systolic 148–189; BP diastolic 69–95
--- NOTE | 2019-07-05 00:15 | NUR ---
BLOOD TRANSFUSION COMPLETE. NO TRANSFUSION REACTION.
[2019-07-05] MEDS: CEFEPIME 2 GM/NS 0.9% 100 ML 100 ML IV SCH ×2 (02:18→15:35)
[2019-07-05 05:23] LABS: HEMATOCRIT 27.9 % (38.2-49.6); LYMPHOCYTES # (AUTO) 0.6 (1.0-3.2); LYMPHOCYTES % 18.3 % (18.0-39.1); MEAN CORPUSCULAR HEMOGLOBIN 28.1 pg (28-32); MEAN CORPUSCULAR HGB CONC 32.3 g/dL (31-35); MEAN CORPUSCULAR VOLUME 87.2 fL (81-99); MONOCYTES # (AUTO) 0.1 (0.2-0.8); MONOCYTES % 2.7 % (4.4-11.3); NEUTROPHILS # (AUTO) 2.4 (2.1-6.9); NEUTROPHILS % 78.3 % (38.7-80.0); PLATELET COUNT 248 x10e3/uL (140-360); RED CELL DISTRIBUTION WIDTH 19.7 % (11.7-14.4)
[2019-07-05 05:40] LABS: ANION GAP 14.3 mmol/L (8-16); CALCIUM 9.8 mg/dL (8.4-10.2); CREATININE, SERUM 1.26 mg/dL (0.72-1.25); POTASSIUM 3.3 mmol/L (3.5-5.1)
[2019-07-05] MEDS ORDERED: VANCOMYCIN 1GM/NS 250 ML 250 ML IV SCH (09:00)
[2019-07-05] MEDS: LISINOPRIL 20 MG TAB PO SCH (09:25)
[2019-07-05] MEDS: PANTOPRAZOLE SOD 40 MG TABEC PO SCH (09:25)
[2019-07-05] MEDS: FUROSEMIDE 20 MG TAB PO SCH ×2 (09:25→17:15)
[2019-07-05] MEDS: FERROUS SULFATE 325 MG TAB PO SCH ×2 (09:25→20:48)
[2019-07-05] MEDS: FOLIC ACID 1 MG TAB PO SCH (09:25)
[2019-07-05] MEDS: PYRIDOXINE HCL 50 MG TAB PO SCH (09:25)
[2019-07-05] MEDS: ATENOLOL 50 MG TAB PO SCH ×2 (09:25→17:15)
[2019-07-05] MEDS: ASPIRIN 81 MG ENTERIC COATED PO SCH (09:25)
[2019-07-05] MEDS: GLIPIZIDE 5 MG TAB PO SCH ×2 (09:25→17:15)
[2019-07-05] MEDS: CYANOCOBALAMIN 1,000 MCG TAB PO SCH (09:25)
[2019-07-05] MEDS: CHOLECALCIFEROL 1,000 UNIT TAB PO SCH (09:25)
[2019-07-05] MEDS ORDERED: ONDANSETRON HCL 4 MG ORAL DISINTEGRATING TAB PO PRN (10:45)
[2019-07-05] MEDS ORDERED: POTASSIUM CHLORIDE 10MEQ EA PO SCH (11:30)
[2019-07-05] MEDS ORDERED: PNEUMOCOCCAL VACCINE POLYVALENT 23 MCG/0.5 ML VIAL IM SCH (13:00)
[2019-07-05] MEDS ORDERED: INFLUENZA VIRUS VAC SPLIT INJ 0.5 ML SYR IM SCH (13:00)
--- NOTE | 2019-07-05 15:59 | NUR ---
DISCUSSED IN BARRIER ROUNDS ON 2 ABX AFEBRILE, GOT 2 UNITS OF BLOOD, HGB 8 NOW UP TO 9, HAS [facility] PROJECTED DC 10-25
[2019-07-05] MEDS: FINASTERIDE 5 MG TAB PO SCH (20:48)
[2019-07-05] MEDS: POTASSIUM CHLORIDE 10MEQ EA PO SCH (20:48)
[2019-07-05] MEDS: TAMSULOSIN HCL 0.4 MG CAP PO SCH (20:48)
[2019-07-05] MEDS: ACETAMINOPHEN/CODEINE 300MG - 30MG TAB PO PRN (20:48)
[2019-07-05 21:12] LABS: WBC,FECAL (FECAL LACTOFERRIN) POSITIVE (NEGATIVE)
[2019-07-06] VITALS (8 sets, daily range): BP systolic 140–183; BP diastolic 65–98
[2019-07-06] MEDS: CEFEPIME 2 GM/NS 0.9% 100 ML 100 ML IV SCH (02:05)
[2019-07-06 06:49] LABS: BASOPHILS % 0.5 % (0.0-1.0); EOSINOPHILS % 0.5 % (0.0-6.0); HEMATOCRIT 27.8 % (38.2-49.6); HEMOGLOBIN 9.1 g/dL (14.0-18.0); LYMPHOCYTES # (AUTO) 0.5 (1.0-3.2); LYMPHOCYTES % 28.6 % (18.0-39.1); MEAN CORPUSCULAR HEMOGLOBIN 28.1 pg (28-32); MEAN CORPUSCULAR HGB CONC 32.7 g/dL (31-35); MEAN CORPUSCULAR VOLUME 85.8 fL (81-99); MONOCYTES # (AUTO) 0.1 (0.2-0.8); MONOCYTES % 3.7 % (4.4-11.3); NEUTROPHILS # (AUTO) 1.3 (2.1-6.9); NEUTROPHILS % 66.2 % (38.7-80.0); PLATELET COUNT 299 x10e3/uL (140-360); RED BLOOD COUNT 3.24 x10e6/uL (4.3-5.7); RED CELL DISTRIBUTION WIDTH 19.4 % (11.7-14.4)
--- NOTE | 2019-07-06 07:00 | NUR ---
The pt reports at bedside rounding that he had a nose bleed and it was noted a minute amount of blood on an alcohol swab. The pt. was reassured that the would be notified at rounds.
[2019-07-06] MEDS: GLIPIZIDE 5 MG TAB PO SCH ×2 (07:41→16:30)
[2019-07-06] MEDS: ASPIRIN 81 MG ENTERIC COATED PO SCH (09:00)
[2019-07-06] MEDS: PANTOPRAZOLE SOD 40 MG TABEC PO SCH (09:11)
[2019-07-06] MEDS: FUROSEMIDE 20 MG TAB PO SCH ×2 (09:11→17:00)
[2019-07-06] MEDS: FERROUS SULFATE 325 MG TAB PO SCH ×3 (09:11→21:00)
[2019-07-06] MEDS: FOLIC ACID 1 MG TAB PO SCH (09:11)
[2019-07-06] MEDS: LISINOPRIL 20 MG TAB PO SCH (09:11)
[2019-07-06] MEDS: CHOLECALCIFEROL 1,000 UNIT TAB PO SCH (09:12)
[2019-07-06] MEDS: CYANOCOBALAMIN 1,000 MCG TAB PO SCH (09:12)
[2019-07-06] MEDS: PYRIDOXINE HCL 50 MG TAB PO SCH (09:12)
[2019-07-06] MEDS: ATENOLOL 50 MG TAB PO SCH ×2 (09:12→17:00)
[2019-07-06 09:39] LABS: C DIFFICILE TOXIN A&B AMP PROB **POSITIVE** (NEGATIVE)
[2019-07-06 09:42] LABS: BAND NEUTROPHILS % (MANUAL) 1 %; LYMPHOCYTES % (MANUAL) 29 % (19-48); MONOCYTES % (MANUAL) 5 % (3.4-9.0); NEUTROPHILS % (MANUAL) 65 % (40-74)
[2019-07-06] MEDS: VANCOMYCIN 250MG/5ML ORAL SOLN PO SCH ×3 (10:08→21:00)
[2019-07-06] MEDS ORDERED: OXYMETAZOLINE HCL 0.05% NAS 1 SPRAY BTL PRN (10:30)
[2019-07-06] MEDS: SALINE 0.65% NAS SOLN 1 SPRAY BTL SCH ×3 (11:04→21:00)
--- NOTE | 2019-07-06 11:14 | NUR ---
IMM GIVEN FARIDA, FILED IN CHART AND COPY LEFT IN ROOM FOR PT AND FAMILY
--- NOTE | 2019-07-06 16:25 | NUR ---
DISCUSSED IN BARRIER ROUNDS PA HAS CIDIFF AND ON ISOLATION, NOW ON PA MEDS WANTS TO BE CERTAIN SHE GETS THE HOME HEALTH FOR [facility] UPON DISCHARGE.
--- NOTE | 2019-07-06 19:30 | NUR ---
BEDSIDE SHIFT REPORT RECEIVED. PATIENT IS AAOX3, RESTING IN BED. RESP EVEN AND UNLABORED. NO ACUTE DISTRESS NOTED. BED LOW/LOCKED, FAMILY AT BED SIDE. SIDE RAILS X2. CALL LIGHT WITH IN EASY REACH. PT DENIES NEEDS AT THIS TIME. CONTINUE TO MONITOR CLOSELY
[2019-07-06] MEDS: TAMSULOSIN HCL 0.4 MG CAP PO SCH (21:00)
[2019-07-06] MEDS: POTASSIUM CHLORIDE 10MEQ EA PO SCH (21:00)
[2019-07-06] MEDS: FINASTERIDE 5 MG TAB PO SCH (21:00)
[2019-07-07] VITALS (8 sets, daily range): BP systolic 159–185; BP diastolic 73–95
[2019-07-07] MEDS: VANCOMYCIN 250MG/5ML ORAL SOLN PO SCH ×4 (05:17→21:10)
--- NOTE | 2019-07-07 07:00 | NUR ---
The pt. is awake and in better mindset this morning. He reports he feels better today.
[2019-07-07] MEDS: GLIPIZIDE 5 MG TAB PO SCH ×2 (07:30→17:27)
[2019-07-07] MEDS: ATENOLOL 50 MG TAB PO SCH ×2 (09:00→17:28)
[2019-07-07] MEDS: ASPIRIN 81 MG ENTERIC COATED PO SCH (09:27)
[2019-07-07] MEDS: FUROSEMIDE 20 MG TAB PO SCH ×2 (09:27→17:27)
[2019-07-07] MEDS: FOLIC ACID 1 MG TAB PO SCH (09:27)
[2019-07-07] MEDS: SALINE 0.65% NAS SOLN 1 SPRAY BTL SCH ×3 (09:27→21:10)
[2019-07-07] MEDS: FERROUS SULFATE 325 MG TAB PO SCH ×3 (09:27→21:10)
[2019-07-07] MEDS: AMLODIPINE BESYLATE 10 MG TAB PO SCH (09:27)
[2019-07-07] MEDS: PANTOPRAZOLE SOD 40 MG TABEC PO SCH (09:28)
[2019-07-07] MEDS: LISINOPRIL 20 MG TAB PO SCH (09:28)
[2019-07-07] MEDS: CYANOCOBALAMIN 1,000 MCG TAB PO SCH (09:29)
[2019-07-07] MEDS: PYRIDOXINE HCL 50 MG TAB PO SCH (09:29)
[2019-07-07] MEDS: CHOLECALCIFEROL 1,000 UNIT TAB PO SCH (09:30)
--- NOTE | 2019-07-07 18:20 | NUR ---
The pt's iv has infiltrated for the 3rd time in 2 days and restart attempt unsuccessful times 3. A called was placed to the dr for orders.
[2019-07-07] MEDS: FINASTERIDE 5 MG TAB PO SCH (21:10)
[2019-07-07] MEDS: TAMSULOSIN HCL 0.4 MG CAP PO SCH (21:10)
[2019-07-07] MEDS: POTASSIUM CHLORIDE 10MEQ EA PO SCH (21:10)
[2019-07-08] VITALS: BP 158/74
[2019-07-08 04:00] VITALS: BP 168/82
[2019-07-08 05:07] LABS: EOSINOPHILS % 0.5 % (0.0-6.0); HEMOGLOBIN 8.9 g/dL (14.0-18.0); LYMPHOCYTES # (AUTO) 0.7 (1.0-3.2); LYMPHOCYTES % 36.4 % (18.0-39.1); MEAN CORPUSCULAR HEMOGLOBIN 27.8 pg (28-32); MEAN CORPUSCULAR HGB CONC 31.8 g/dL (31-35); MEAN CORPUSCULAR VOLUME 87.5 fL (81-99); MONOCYTES # (AUTO) 0.1 (0.2-0.8); MONOCYTES % 5.4 % (4.4-11.3); NEUTROPHILS # (AUTO) 1.1 (2.1-6.9); NEUTROPHILS % 57.2 % (38.7-80.0); PLATELET COUNT 309 x10e3/uL (140-360); RED CELL DISTRIBUTION WIDTH 19.5 % (11.7-14.4)
[2019-07-08 05:22] LABS: PHOSPHORUS 2.1 MG/DL (2.3-4.7)
[2019-07-08] MEDS: VANCOMYCIN 250MG/5ML ORAL SOLN PO SCH ×2 (05:22→11:08)
[2019-07-08 05:36] LABS: ANION GAP 14.7 mmol/L (8-16); BLOOD UREA NITROGEN 19 mg/dL (7-26); BUN/CREATININE RATIO 20 (6-25); CALCIUM 9.3 mg/dL (8.4-10.2); CARBON DIOXIDE 22 mmol/L (22-29); CHLORIDE 106 mmol/L (98-107); CREATININE, SERUM 0.97 mg/dL (0.72-1.25); EST GLOMERULAR FILTRATION RATE > 60 ML/MIN (60-); GLUCOSE 88 mg/dL (74-118); POTASSIUM 3.7 mmol/L (3.5-5.1); SODIUM 139 mmol/L (136-145)
[2019-07-08 07:09] LABS: EOSINOPHILS % (MANUAL) 1 % (0-7); LYMPHOCYTES % (MANUAL) 37 % (19-48); MONOCYTES % (MANUAL) 3 % (3.4-9.0); NEUTROPHILS % (MANUAL) 58 % (40-74); PLATELET ESTIMATE ADEQUATE; PLATELET MORPHOLOGY COMMENT NORMAL; RBC MORPHOLOGY COMMENT NORMAL
[2019-07-08 08:00] VITALS: BP 139/87
[2019-07-08] MEDS: CHOLECALCIFEROL 1,000 UNIT TAB PO SCH (10:07)
[2019-07-08] MEDS: LISINOPRIL 20 MG TAB PO SCH (10:07)
[2019-07-08] MEDS: FERROUS SULFATE 325 MG TAB PO SCH (10:07)
[2019-07-08] MEDS: ASPIRIN 81 MG ENTERIC COATED PO SCH (10:07)
[2019-07-08] MEDS: FUROSEMIDE 20 MG TAB PO SCH (10:07)
[2019-07-08] MEDS: PANTOPRAZOLE SOD 40 MG TABEC PO SCH (10:07)
[2019-07-08] MEDS: FOLIC ACID 1 MG TAB PO SCH (10:07)
[2019-07-08] MEDS: PYRIDOXINE HCL 50 MG TAB PO SCH (10:07)
[2019-07-08] MEDS: ATENOLOL 50 MG TAB PO SCH (10:07)
[2019-07-08] MEDS: CYANOCOBALAMIN 1,000 MCG TAB PO SCH (10:07)
[2019-07-08] MEDS: SALINE 0.65% NAS SOLN 1 SPRAY BTL SCH (10:07)
[2019-07-08] MEDS: GLIPIZIDE 5 MG TAB PO SCH (10:07)
[2019-07-08] MEDS: AMLODIPINE BESYLATE 10 MG TAB PO SCH (10:07)
[2019-07-08 10:13] VITALS: BP 139/87
--- NOTE | 2019-07-08 11:23 | Discharge Summary ---
PRIMARY CARE PHYSICIAN: Dr. Perez Saini. CONSULTANTS: 1. Dr. Baudilio Castro. 2. Dr. Miles Daley. FINAL DIAGNOSES: 1. Clostridium difficile colitis associated with diarrhea, resolving. 2. Baseline chronic anemia, leukopenia, status post bone marrow biopsy on previous admission. SUMMARY: An 84-year-old male came in with diarrhea and dehydration. The patient was given IV fluid. He did better. He did have diarrhea multiple times. C diff toxin positive. On his prior admission, he was on antibiotics for fever. The patient is otherwise stable. The C diff colitis most likely secondary to antibiotic empiric treatment. The patient is doing much better now. No diarrhea. No chest pain. No shortness of breath. The patient will go home today. Follow up as an outpatient. He will go home with vancomycin 125 mg 3 times a day for 10 days. He will have one refill just in case the diarrhea recurred. He will continue with Questran as needed. Zofran as needed. Resume home medication. MD JUAN Molina/NATALIE /[id number] cc: Eladio Saini DO
== END 2019-07-08 12:07 | disposition home or self-care (01) | DRG 372 ==
LOC: ER 13:06 → ERHOLD 14:43 → MED/SURG2 18:00
PROVIDERS: ADMIT Internal Medicine; ATTEND Internal Medicine
PROC: 30233N1 Transfusion of Nonautologous Red Blood Cells into Peripheral Vein, Percutaneous Approach (ICD-10-PCS; principal; 2019-07-04)
DX: A04.72 Enterocolitis due to Clostridium difficile, not specified as recurrent (principal); D61.818 Other pancytopenia; I13.0 Hypertensive heart and chronic kidney disease with heart failure and stage 1 through stage 4 chronic kidney disease, or unspecified chronic kidney disease; I50.20 Unspecified systolic (congestive) heart failure; D75.81 Myelofibrosis; R04.0 Epistaxis; E78.5 Hyperlipidemia, unspecified; N18.2 Chronic kidney disease, stage 2 (mild); D64.9 Anemia, unspecified; Z88.1 Allergy status to other antibiotic agents; R19.7 Diarrhea, unspecified; E11.22 Type 2 diabetes mellitus with diabetic chronic kidney disease; D29.1 Benign neoplasm of prostate; D46.9 Myelodysplastic syndrome, unspecified; Z79.82 Long term (current) use of aspirin; Z79.84 Long term (current) use of oral hypoglycemic drugs
CPT/HCPCS: 36415; 71045; 80048; 80053; 80202; 81001; 81220; 82668; 82948; 83605; 83630; 83735; 84100; 84145; 84484; 85025; 86850; 86900; 86920; 87040; 87045; 87086; 87400; 87493; 90732; 99284; J1940; J3370; J7030; J7050; P9016

== ENCOUNTER 2019-10-27 18:04 | Emergency (ER) | payer OTHER ==
[~2019-10-27] VITALS: Ht 167.6 cm; Wt 81.6 kg
[2019-10-27] MEDS ORDERED: SODIUM CHLORIDE 0.9% 1000ML 1,000 ML ONE (18:25)
[2019-10-27] MEDS ORDERED: ACETAMINOPHEN 325 MG TAB ONE (18:25)
[2019-10-27] MEDS ORDERED: ACETAMINOPHEN 325 MG TAB PO ONE (18:30)
[2019-10-27] MEDS ORDERED: SODIUM CHLORIDE 0.9% 1000ML 1,000 ML IV ONE (18:45)
--- NOTE | 2019-10-27 19:02 | Diagnostic Imaging Report ---
Examination: Single AP view of the chest. COMPARISON: 09/22/2019 INDICATION: Fever DISCUSSION: Lungs remain well-inflated. Linear opacities in the mid and lower lung zones are grossly unchanged. Right pleural effusion has decreased in size. Stable cardiomediastinal contour with prominence of the central pulmonary vasculature. No acute osseous abnormality. IMPRESSION: Right pleural effusion has decreased in size. Otherwise stable appearance of the heart and lungs relative to 09/22/2019. No new consolidations. Signed by: Dr. Eladio Haskins M.D. on 10/27/2019 6:59 PM
--- NOTE | 2019-10-27 19:32 | NUR ---
PT REFUSING ADMISSION, DR PEREZ IN ROOM TALKING WITH PATIENT AND FAMILY, PT VERBALIZES RISK OF GOING HOME AND STATED HE WOULD RETURN IF CONDITION WORSENS,
[2019-10-27 19:41] VITALS: BP 120/68
== END 2019-10-27 19:30 | disposition left against medical advice (07) ==
LOC: FSED 18:04
DX: R50.9 Fever, unspecified (principal); I50.9 Heart failure, unspecified; D75.81 Myelofibrosis; Z88.1 Allergy status to other antibiotic agents; Z90.49 Acquired absence of other specified parts of digestive tract; Z79.899 Other long term (current) drug therapy; E11.9 Type 2 diabetes mellitus without complications
CPT/HCPCS: 71046; 80053; 81003; 85025; 87040; 87086; 99284; J7030

== ENCOUNTER 2020-04-17 03:07 | Inpatient (IN) | payer OTHER ==
[~2020-04-17] VITALS: Ht 167.6 cm; Wt 81.6 kg
[2020-04-17] MEDS ORDERED: ACETAMINOPHEN 325 MG TAB PO ONE ×2 (03:15)
--- NOTE | 2020-04-17 03:21 | Emergency Department Note ---
History of Present Illnes History of Present Illness Chief Complaint: Genitourinary History of Present Illness This is a 85 year old male recently discharged from [facility], brought by EMS for evaluation of urinary urgency and fever of one day duration . Past Medical/Family History Physician Review I have reviewed the patient's past medical and family history. Any updates have been documented here. Past Medical History Past Medical History: Hypertension, Diabetes, CHF, Cancer, UTI's, Anemia, Hyperlipedemia Other Medical History: mylofibrosis bph Past Surgical History: Cholecysctectomy Other Surgery: right and left inguinal hernia heart murmur right and left shoulder surgery left knee surgery Social History Smoking Cessation: Former smoker Alcohol Use: None Any Illegal Drug Use: No Other Last Tetanus: UNKNOWN Review of Systems Review of Systems Constitutional: Reports fever, Reports weakness EENTM: Reports no symptoms Cardiovascular: Reports no symptoms Respiratory: Reports no symptoms Gastrointestinal: Reports no symptoms Genitourinary: Reports dysuria Musculoskeletal: Reports no symptoms Integumentary: Reports no symptoms Neurological: Reports no symptoms Psychological: Reports no symptoms Endocrine: Reports no symptoms Hematological/Lymphatic: Reports no symptoms Physical Exam Related Data Allergies: Coded Allergies: ciprofloxacin (Verified Allergy, Unknown, 01/31/19) Triage Vital Signs Vital Signs Date Time Temp Pulse Resp B/P (MAP) Pulse Ox O2 Delivery O2 Flow Rate FiO2 04/17/20 03:07 102.9 97 20 150/71 99 Room Air 04/18/20 19:00 6.0 Vital signs reviewed: Yes Physical Exam CONSTITUTIONAL Constitutional: Present well-developed, Present well-nourished; Absent distressed HENT HENT: Present normocephalic, Present atraumatic, Present oropharynx clear/moist, Present nose normal HENT L/R: Present left ext ear normal, Present right ext ear normal EYES Eyes: Reports PERRL, Reports conjunctivae normal NECK Neck: Present ROM normal PULMONARY Pulmonary: Present effort normal, Present breath sounds normal CARDIOVASCULAR Cardiovascular: Present regular rhythm, Present heart sounds normal, Present capillary refill normal, Present normal rate GASTROINTESTINAL Abdominal: Present soft, Present bowel sounds normal, Present tender (suprapubic) GENITOURINARY Genitourinary: Present exam deferred SKIN Skin: Present warm, Present dry MUSCULOSKELETAL Musculoskeletal: Present ROM normal NEUROLOGICAL Neurological: Present alert, Present no gross motor or sensory deficits PSYCHOLOGICAL Psychological: Present mood/affect normal, Present judgement normal Results Laboratory Lab results reviewed: Yes Imaging Imaging results reviewed: Yes Impressions [place] [address] Patient Name: ALEX RAZA MR #: [id number] : 1935 Age/Sex: 85/M Req #: [id number] Adm Physician: Ordered by: FRANDY FLORES DO Report #: [id number] Location: ER Room/Bed: Procedure: [id number] DX/CHEST SINGLE (PORTABLE) Exam Date: 04/17/20 Exam Time: 0405 REPORT STATUS: Signed EXAMINATION: CHEST SINGLE (PORTABLE) INDICATION: Fever and difficulty urinating. COMPARISON: Radiograph dated 09/22/2019 FINDINGS: TUBES and LINES: None. LUNGS: Patchy bibasilar opacities. PLEURA: No pleural effusion or pneumothorax. HEART AND MEDIASTINUM: The cardiomediastinal silhouette is unremarkable. BONES AND SOFT TISSUES: No acute osseous lesion. Soft tissues are unremarkable. UPPER ABDOMEN: No free air under the diaphragm. IMPRESSION: Patchy bibasilar opacities could represent atelectasis or pneumonia/viral pneumonia. Radiographic follow-up in 6-8 weeks to ensure resolution is recommended. Signed by: Avis Bonilla MD on 04/17/2020 7:08 AM Dictated By: AVIS BONILLA MD 7 Transcribed By: CALVIN on 04/17/20 07 COPY TO: FRANDY FLORES DO~ Assessment & Plan Medical Decision Making MDM 85 yom presents presents with signs and symptoms concerning for sepsis . Blood cx x 2 and blood cx ordered with abx given. Lactic acid ordered and reviewed . Plan to admit to the hospital for IV abx. Admission to Dr Tre Lorenzo Assessment & Plan Final Impression: (1) Pneumonia (2) UTI (urinary tract infection) (3) CHF (congestive heart failure) (4) Leukopenia (5) Urinary retention Depart Disposition: ADMITTED Home Meds Reported Medications Furosemide (LASIX) 20 Mg Tablet, 20 MG PO BID, #30 TAB 06/20/19 Cholecalciferol (Vitamin D3) (VITAMIN D3) 1,000 Unit Capsule, 1000 UNIT PO DAILY 06/14/19 Cyanocobalamin (VITAMIN B-12) 1,000 Mcg Tab, 1000 MCG PO DAILY, #30 TAB 06/14/19 Pyridoxine Hcl (VITAMIN B-6) 50 Mg Tablet, 50 MG PO DAILY 06/14/19 Pantoprazole Sodium* (PROTONIX) 40 Mg Tablet.dr, 40 MG PO DAILY, TAB 01/31/19 Folic Acid (FOLIC ACID) 1 Mg Tablet, 800 MG PO DAILY, #30 TAB 12/13/18 Finasteride (FINASTERIDE) 5 Mg Tablet, 5 MG PO HS, #30 TAB 12/13/18 Lisinopril (LISINOPRIL) 40 Mg Tablet, 40 MG PO DAILY 12/13/18 Atenolol (ATENOLOL) 25 Mg Tablet, 25 MG PO BID 12/13/18 Acetaminophen/Codeine* (TYLENOL # 3*) 1 Ea Tab, 1 TAB PO Q6H PRN for PAIN 02/20/16 Tamsulosin Hcl (TAMSULOSIN HCL) 0.4 Mg Cap.er.24h, 0.4 MG PO HS 02/20/16 Glipizide (GLIPIZIDE) 5 Mg Tablet, 5 MG PO BID, TAB 02/20/16 FRANDY FLORES DO Apr 17, 2020 03:21
[2020-04-17] MEDS ORDERED: SODIUM CHLORIDE 0.9% 1000ML 1,000 ML IV STA (03:27)
[2020-04-17] MEDS ORDERED: ACETAMINOPHEN 325 MG TAB PO STA (03:28)
[2020-04-17] MEDS ORDERED: LIDOCAINE JELLY 2% 10ML URO-JET TOP ONE (03:30)
[2020-04-17 04:31] LABS: HEMATOCRIT 28.3 % (38.2-49.6); HEMOGLOBIN 8.9 g/dL (14.0-18.0); LYMPHOCYTES # (AUTO) 0.4 (1.0-3.2); MEAN CORPUSCULAR HEMOGLOBIN 27.5 pg (28-32); MEAN CORPUSCULAR HGB CONC 31.4 g/dL (31-35); MEAN CORPUSCULAR VOLUME 87.3 fL (81-99); MONOCYTES # (AUTO) 0.1 (0.2-0.8); NEUTROPHILS # (AUTO) 0.5 (2.1-6.9); PLATELET COUNT 225 x10e3/uL (140-360); RED BLOOD COUNT 3.24 x10e6/uL (4.3-5.7); RED CELL DISTRIBUTION WIDTH 21.1 % (11.7-14.4)
[2020-04-17 04:32] LABS: CLARITY,URINE SL CLOUDY (CLEAR); COLOR,URINE YELLOW (YELLOW)
[2020-04-17 04:33] LABS: BILIRUBIN,URINE NEGATIVE (NEGATIVE); KETONES,URINE NEGATIVE (NEGATIVE); LEUKOCYTE ESTERASE ,URINE NEGATIVE (NEGATIVE); NITRITE,URINE NEGATIVE (NEGATIVE); PROTEIN,URINE DIPSTICK >=300 (NEGATIVE); URINE UROBILINOGEN 0.2 mg/dL (0.2 - 1)
[2020-04-17 04:36] LABS: AMORPHOUS SEDIMENT,URINE FEW (FEW); BACTERIA,URINE FEW /HPF; EPITHELIAL CELLS,URINE FEW /LPF; WBC,URINE (MAN) 0-5 /HPF (0-5)
--- OUTSIDE RECORDS SUMMARY | 2020-04-17 04:41 | XMS REPORT | Clinical Summary ---
Author Author [facility] Organization [facility] Address Unknown Phone Unavailable Care Team Providers Care Cigarette And Filter Chief Inspector Name Role Phone Eric Martinez DO PCP Allergies Comments Active Allergy Reactions [...] Sensorineural hearing loss (SNHL) of both ears 12/30 Encounters Care Team Description Date Type Specialty 01/23/2020 Travel after 04/17/2019 Family History Medical History Relation Name Comments Cancer Brother Heart disease Father Relation Name Status Comments Brother Father Social History Date Tobacco Use Types Packs/Day Years Used Never Smoker Smokeless Tobacco: Never Used Drinks/Week oz/Week Comments Alcohol Use No Sex Assigned at Date Recorded Not [...] VACCINE 2000 (1 of 2 - PCV13) INFLUENZA VACCINE 04/12/2020 Results Not on fileafter 04/17/2019 Insurance Type Payer Benefit Subscriber ID Effective Phone Address Plan / Dates Group HMO DEVOTED HEALTH DEVOTED xxxxxx 2019-P HEALTH resent Guarantor Name Account Relation to Date of Phone Billin g Address Type Patient Eric Peters Personal/F Self 1935 [id number] [facility] (Home) [address] [place] [address] Advance Directives For more information, please contact: [phone] Patient Commissioning Manager Explanation Type Date Recorded Advance Directives, Living Will and Medical Power of Water Pipe Installer
--- OUTSIDE RECORDS SUMMARY | 2020-04-17 04:42 | XMS REPORT | Continuity of Care Document ---
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 Role Phone [employer] Unavailable Un available Problems Problem Status Onset Date Classification Date Reported Comments Source Pain in right knee 12/06/2017 03/07/2018 [facility] [place] HTN/DM Active 11/18/2016 [facility] HYPONATREMIA, HYPOKALEMIA Acti ve 11/18/2016 [facility] UNABLE TO VOID Active 02/02/2016 [facility] Diabetes mellitus (disorder) R esolved Problem [facility], [facility] [place], [facility] [place] Hypertensive disorder, systemic arterial (disorder) Resolved Problem 12/24/2018 [facility] [place], [place], [facility] [place] Arthritis (disorder) Resolved Problem 12/24/2018 [facility] [place], [place] [facility] [place] Vertigo (finding) Resolved Problem 12/24/2018 [facility] [place], [place], [facility] [place] Dizziness and giddiness 01/18/2018 [facility] [place] Cerebral ischemia 01/18/2018 [facility] [place] Other specified disorders of brain 01/18/2018 [facility] [place] Pain in left elbow 03/07/2018 [facility] [place] Secondary hypertension, unspecified 11/25/2016 [facility] SEPSIS DUE TO UNSPECIFIED STAPHYLOCOCCUS Active [facility] SECONDARY HYPERTENSION, UNSPECIFIED Active [facility] HYPO-OSMOLALITY AND HYPONATREMIA Active [facility] HYPOKALEMIA Active [facility] Medications Medication Details Route Status Patient Instructions Ordering Provider Order Date Source Metformin hydrochloride 1000 MG Oral Tablet 1,000 mg = 1 tab, PO, BID, # 60 tab, 0 Refill(s) Active 11/22/2016 [facility] carvedilol 12.5 mg oral tablet 12.5 mg = 1 tab, PO, Q12H, # 60 tab, 0 Refill(s) Active 11/22/2016 [facility] Amoxicillin 875 MG / Clavulanate 125 MG Oral Tablet [Augmentin 875-mg] 1 tab, PO, Q12H, X 10 day, # 20 tab, 0 R efill(s) Active 11/22/2016 [facility] Acetaminophen 300 MG / Codeine Phosphate 30 MG Oral Tablet [Tylenol with Codeine #3] 1 - 2 tab, PO, Q4H, PRN Pain, X 2 day, # 20 tab, 0 Refill(s) No Longer Active 11/22/2016 [facility] Amoxicillin 875 MG / Clavulanate 125 MG Oral Tablet [Augmentin 875-mg] Notes: With food. (Same as: Augmentin 87 5) Inactive 11/22/2016 [facility] Metformin hydrochloride 1000 MG Oral Tablet Notes: (Same as: Glucophage) Take with meal No Longer Active 11/21/2016 [facility] Glipizide Notes: (Same as: Glu cotrol) 30 min before meals. No Longer Active 11/21/2016 [facility] Benzocaine 15 MG / Menthol 3.6 MG Lozeng e [Cepacol Sore Throat Pain Relief 15/3.6] Notes: Same as: Cepacol No Longer Active 11/21/2016 [facility] Amlodipine Notes: (Same as: No rvasc) No Longer Active 11/20/2016 [facility] metoprolol tartrate Notes: (Sa me as: Lopressor) Inactive 11/20/2016 [facility] Coreg Notes: Give with food. ( Same As: Coreg) No Longer Active 11/20/2016 [facility] Fluticasone propionate 0.05 MG/ACTUAT Me tered Dose Nasal [place] [Flonase] Notes: (Same as: Flonase) No Longer Active 11/20/2016 [facility] tamsulosin Notes: (Same As: Fl omax) "Do Not Crush" No Longer Active 11/19/2016 [facility] Doxazosin Notes: (Same as: Car dura) No Longer Active 11/19/2016 [facility] benzonatate 100 mg, Route: PO, Drug form: CAP, TID, Dosing Weight 217, kg, Start date: 11/19/16 17:00:00 DIRECTOR OF CATH LAB, Duration: 30 day, Stop date: 12/19/16 13:00:00 CDT Inactive 11/19/2016 [facility] Acetaminophen 325 MG / Hydrocodone Shmuel trate 5 MG Oral Tablet Notes: (Same as: [place] 325/5) Do not ex ceed 4gm/day of acetaminophen. No Longer Active 11/19/2016 [facility] Acetaminophen 300 MG / Codeine Phosphate 30 MG Oral Tablet [Tylenol with Codeine #3] Notes: Do not exceed 4gm/day of acetamin ophen. (Same as: Tylenol with Codeine # 3) No Longer Active 11/19/2016 [facility] benzonatate Notes: (Same As: Oscar Bui) "Do Not Crush" No Longer Active 11/19/2016 [facility] Hydralazine Notes: (Same as: A presoline) Push over 5 minutes No Longer Active 11/19/2016 [facility] Insulin, Aspart, Human Notes: Roll in palms of hands gently; Do not shake vigorously. (Same as: NovoLOG) "single patient use only" WASTE: F/P - Black; E - Municipal Trash Bin Stable for 28 days at room temperature. Expires in days from Date No Longer Active 11/19/2016 [facility] Dextrose 50% Syringe 12.5 gm, 25 mL, Route: IVP, Drug Form: INJ, Dosing Weight 217, kg, PRN, PRN Blood Glucose Results, Start date: 11/19/16 13:33:00 DIRECTOR OF CATH LAB, Duration: 30 day, Stop date: 12/19/16 14:32:00 CDT No Longer Active 11/19/2016 [facility] Glucagon 1 mg, Route: IM, Drug form: PDR/INJ, PRN, Dosing Weight 217, kg, PRN Blood Glucose Results, Start date: 11/19/16 13:33:00 DIRECTOR OF CATH LAB, Duration: 30 day, Stop date: 12/19/16 14:32:00 CDT No Longer Active 11/19/2016 [facility] Fluticasone propionate 0.05 MG/ACTUAT Me tered Dose Nasal [place] [Flonase] Notes: (Same as: Flonase) Inactive 11/19/2016 [facility] Docusate Sodium 100 MG Oral Capsule Notes: (Same as: Colace) (Do Not Crush) No Longer Active 11/19/2016 [facility] Acetaminophen 325 MG / Hydrocodone Shmuel trate 5 MG Oral Tablet Notes: (Same as: [place] 325/5) Do not ex ceed 4gm/day of acetaminophen. Inactive 11/19/2016 [facility] Ondansetron Notes: (Same as: Dannie chong) MEDICATION WASTE Product Size: 4 mg Product Wasted: ___ mg No Longer Active 11/19/2016 [facility] Acetaminophen Notes: Do not ex ceed 4 gm/day. (Same as: Tylenol) No Longer Active 11/19/2016 [facility] sodium phosphate + D5W 240 mL 30 mmol, 10 mL, Route: IVPB, PRN, Dosing Weight 217, kg, PRN Abnormal Lab Result, For NON-ICU Patients Only., Start date: 11/19/16 13:13:00 DIRECTOR OF CATH LAB, Duration: 30 day, Stop date: 12/19/16 14:12:00 CDT No Longer Active 11/19/2016 [facility] sodium phosphate + D5W 245 mL 15 mmol, 5 mL, Route: IVPB, PRN, Dosing Weight 217, kg, PRN Abnormal Lab Result, For NON-ICU Patients Only., Start date: 11/19/16 13:13:00 DIRECTOR OF CATH LAB, Duration: 30 day, Stop date: 12/19/16 14:12:00 CDT No Longer Active 11/19/2016 [facility] Calcium Gluconate Notes: WASTE : F/P - Sink; E - Municipal Trash Bin No Longer Active 11/19/2016 [facility] Magnesium Sulfate Notes: WASTE : F/P - Sink; E - Municipal Trash Bin No Longer Active 11/19/2016 [facility] Magnesium Oxide Notes: (Same a s: Mag-Ox 400) Magnesium oxide [id number] elemental magnesium Dose=____mg magnesium oxide (___mg elemental magnesium) No Longer Active 11/19/2016 [facility] potassium phosphate-sodium phosphate 250 mg-280 mg-160 mg oral powder for reconstitution Notes: (Same as: Phos-NaK) Each 1.5 gm pkt has 250mg phosphorous. Mix w/2.5oz water and stir. No Longer Active 11/19/2016 [facility] potassium phosphate + sodium chloride 0.9% INJ 240 mL Notes: (Same as: K Phosphate.) 1 mMol phoshate has 1.47 mEq potassium Infuse over 4 hours No Longer Active 11/19/2016 [facility] potassium phosphate + sodium chloride 0.9% INJ 245 mL Notes: (Same as: K Phosphate.) 1 mMol phoshate has 1.47 mEq potassium Infuse over 4 hours No Longer Active 11/19/2016 [facility] potassium chloride Notes: (Joaquin e as: Potassium Chloride) No Longer Active 11/19/2016 [facility] Sodium Chloride 0.154 MEQ/ML Injectable Solution 1,000 mL, Rate: 100 ml/hr, Infuse over: 10 hr, Route: IV, Dosing Weight 217 kg, Total Volume: 1,000, Start date: 11/19/16 12:58:00 DIRECTOR OF CATH LAB, Duration: 30 day, Stop date: 12/19/16 12:57:00 CDT No Longe r Active 11/19/2016 [facility] metoprolol tartrate Notes: ( me as: Lopressor) Inactive 02/12/2016 [facility] meropenem 500 MG Injection [Merrem] 500 mg, IV, Q6H Active 02/12/2016 [facility] Glipizide 5 MG Oral Tablet 2.5 mg = 0.5 tab, PO, Daily, # 15 tab, 0 Refill(s) Active 02/12/2016 [facility] tamsulosin 0.4 mg oral capsule 0.4 mg = 1 cap, PO, After Dinner, 0 Refill(s) Active 02/12/2016 [facility] metoprolol tartrate 50 mg oral tablet 50 mg = 1 tab, PO, BID, 0 Refill(s) Active 02/12/2016 [facility] docusate sodium 100 mg oral capsule 100 mg = 1 cap, PO, BID, PRN Constipation, 0 Refill(s) Active 02/12/2016 [facility] Acetaminophen 325 MG / Hydrocodone Shmuel trate 5 MG Oral Tablet [[place] 5/325] 1 tab, PO, Q6H, PRN Pain Score 1-3, 0 Re fill(s) Active 02/12/2016 [facility] Spironolactone Notes: (Same As : Aldactone) No Longer Active 02/10/2016 [facility] Gentamicin level scheduled Gen tamicin level scheduled, Gent level due, Drug form: MISC, Route: MISC, ONCE, 02/09/16 19:30:00 CDT, Stop date: 02/09/16 19:30:00 CDT No Longer Active 02/10/2016 [facility] Tums Notes: (Same As: Tums) Ca lcium Carbonate 500 mg = 200 mg elemental calcium Dose = mg calcium carbonate ( mg elemental calcium) No Longer Active 02/09/2016 [facility] Famotidine 40 MG Oral Tablet [Pepcid] Notes: (Same as: Pepcid) No Longer Active 02/09/2016 [facility] Flomax Notes: (Same As: Flomax ) "Do Not Crush" No Longer Active 02/08/2016 [facility] Saline Flush 0.9% Notes: (Same as: BD Posiflush) No Longer Active 02/08/2016 [facility] Lidocaine Hydrochloride 10 MG/ML Injectable Solution Notes: Preservative free. (Same as: Xylocaine MPF) No Longer Active 02/08/2016 [facility] Saline Flush 0.9% Notes: (Same as: BD Posiflush) No Longer Active 02/08/2016 [facility] Gentamicin level scheduled Gen tamicin level scheduled, Gent level due, Drug form: MISC, Route: MISC, ONCE, 02/07/16 19:30:00 CDT, Stop date: 02/07/16 19:30:00 CDT Inactive 02/08/2016 [facility] potassium phosphate + Sodium Chloride 0.9% IV 250 mL Notes: (Same as: K Phosphate.) 1 mMol phoshate has 1.47 mEq potassium Infuse over 4 hours Inactive 02/07/2016 [facility] metoprolol tartrate Notes: ([facility] as: Lopressor) No Longer Active 02/06/2016 [facility] Merrem 50, Extended infusion, infuse over 3 hours, Start date: 02/05/16 18:00:00 CDT, Duration: 30 day, Stop date: 03/06/16 12:00:00 CDT Inactive 02/05/2016 [facility] Gentamicin trough due Gentamic in trough due, -, Drug form: MISC, Route: MISC, ONCE, 02/05/16 15:30:00 CDT, Stop date: 02/05/16 15:30:00 CDT Inactive 02/05/2016 [facility] potassium phosphate + Sodium Chloride 0.9% IV 250 mL Notes: (Same as: K Phosphate.) 1 mMol phoshate has 1.47 mEq potassium Infuse over 4 hours Inactive 02/05/2016 [facility] meropenem + Sodium Chloride 0.9% IV 100 mL Notes: Same as Merrem MEDICATION WASTE Product Size: 500 mg Product Wasted: ___ mg No Longer Active 02/05/2016 [facility] Zofran Notes: (Same as: Zofran ) MEDICATION WASTE Product Size: 4 mg Product Wasted: ___ mg No Longer Active 02/05/2016 [facility] metoprolol tartrate Notes: (Sa me as: Lopressor) No Longer Active 02/05/2016 [facility] Calcium Gluconate Notes: WASTE : F/P - Sink; E - Municipal Trash Bin No Longer Active 02/04/2016 [facility] potassium chloride Notes: Infu se at a rate of 10 mEq/hr. (Same as: KCL) No Longer Active 02/04/2016 [facility] potassium phosphate + Sodium Chloride 0.9% IV 250 mL Notes: (Same as: K Phosphate.) 1 mMol phoshate has 1.47 mEq potassium Infuse over 4 hours No Longer Active 02/04/2016 [facility] sodium phosphate + Sodium Chloride 0.9% IV 250 mL 30 mmol, 10 mL, Route: IVPB, PRN, Dosing Weight 95, kg, PRN Abnormal Lab Result, For NON-ICU Patients Only., Start date: 02/04/16 18:06:00 CDT, Duration: 30 day, Stop date: 03/05/16 18:05:00 CDT No Longer Active 02/04/2016 [facility] potassium phosphate-sodium phosphate 250 mg-278 mg-164 mg oral powder Notes: (Same as: Neutra-Phos) Each 1.25 gm pkt has 250mg phosphorous. Mix w/2.5oz water and stir. No Longer Active 02/04/2016 [facility] Magnesium Oxide Notes: (Same a s: Mag-Ox 400) Magnesium oxide [id number] elemental magnesium Dose=____mg magnesium oxide (___mg elemental magnesium) No Longer Active 02/04/2016 [facility] Magnesium Sulfate Notes: WASTE : F/P - Sink; E - Municipal Trash Bin No Longer Active 02/04/2016 [facility] gentamicin + Sodium Chloride 0.9% IV 100 mL Notes: TIME CRITICAL MEDICATION (Same as Garamycin) No Longer Active 02/04/2016 [facility] Gentamicin Sulfate (DETENTION) 1 ea, Route: MISC, Dosing Weight 95, kg, ONCALL, Start date: 02/04/16 15:00:00 CDT, Duration: 1 doses or times, Pharmacy to dose Inactive 02/04/2016 [facility] Labetalol Notes: (Same as: Natali Torresdamarivel) Push over 2 minutes Give bolus over 2-3 minutes. No Longer Active 02/04/2016 [facility] Doxazosin Notes: (Same as: Car dura) No Longer Active 02/04/2016 [facility] potassium phosphate + Sodium Chloride 0.9% IV 250 mL Notes: (Same as: K Phosphate.) 1 mMol phoshate has 1.47 mEq potassium Infuse over 4 hours Inactive 02/04/2016 [facility] sodium phosphate 15 mmol, Rout e: IVPB, PRN, Dosing Weight 95, kg, PRN Abnormal Lab Result, Start date: 02/04/16 7:36:00 CDT, Duration: 30 day, Stop date: 03/05/16 7:35:00 CDT Inactive 02/04/2016 [facility] sodium phosphate + Sodium Chloride 0.9% IV 250 mL 15 mmol, 5 mL, Route: IVPB, PRN, Dosing Weight 95, kg, PRN Abnormal Lab Result, Start date: 02/04/16 7:20:00 CDT, Duration: 30 day, Stop date: 03/05/16 7:19:00 CDT No Longer Active 02/04/2016 [facility] potassium phosphate + Sodium Chloride 0.9% IV 250 mL Notes: (Same as: K Phosphate.) 1 mMol phoshate has 1.47 mEq potassium Infuse over 4 hours Inactive 02/03/2016 [facility] tramadol hydrochloride 50 MG Oral Tablet 50 mg = 1 tab, PO, Q8H, PRN Pain Score 6-10, 0 Refill(s) Active 02/03/2016 [facility] Metformin 1,000 mg, PO, TID, 0 Refill(s) No Longer Active 02/03/2016 [facility] Amlodipine 10 mg, PO, Daily, 0 Refill(s) Active 02/03/2016 [facility] acyclovir 200 mg oral capsule 200 mg = 1 cap, PO, Daily, PRN infection, 0 Refill(s) Active 02/03/2016 [facility] benzonatate 100 mg oral capsule 100 mg = 1 cap, PO, TID, 0 Refill(s) Active 02/03/2016 [facility] nitrofurantoin 100 mg, PO, BID , # 14 cap, 0 Refill(s) No Longer Active 02/03/2016 [facility] meclizine 25 mg oral tablet 25 mg = 1 tab, PO, TID, PRN Nausea, 0 Refill(s) Active 02/03/2016 [facility] doxazosin 1 mg oral tablet 1 m g = 1 tab, PO, Daily, every evening, 0 Refill(s) Active 02/03/2016 [facility] Hydrochlorothiazide 25 mg, PO, Daily, 0 Refill(s) No Longer Active 02/03/2016 [facility] lisinopril 40 mg oral tablet 4 0 mg = 1 tab, PO, Daily, 0 Refill(s) No Longer Active 02/03/2016 [facility] testosterone 200 mg/mL intramuscular solution 200 mg = 1 ml, IM, q2wk, 0 Refill(s) No Longer Active 02/03/2016 [facility] Ibuprofen 200 mg, 0 Refill(s) No Longer Active 02/03/2016 [facility] heparin Notes: porcine heparin No Longer Active 02/03/2016 [facility] Zosyn Notes: (Same as: Zosyn) Dosing based on Piperacillin component MEDICATION WASTE Product Size: 3375 mg Product Wasted: 0 mg No Longer Activ e 02/02/2016 [facility] Acetaminophen 325 MG / Hydrocodone Shmuel trate 5 MG Oral Tablet [[place] 5/325] Notes: (Same as: [place] 325/5) Do not ex ceed 4gm/day of acetaminophen. No Longer Activ e 02/02/2016 [facility] Amlodipine Notes: (Same as: No rvasc) No Longer Active 02/02/2016 [facility] Saline Flush 0.9% Notes: (Same as: BD Posiflush) No Longer Active 02/02/2016 [facility] Sodium Chloride 0.0769 MEQ/ML Injectable Solution 1,000 mL, Rate: 75 ml/hr, Infuse over: 13.3 hr, Route: IV, Dosing Weight 95 kg, Total Volume: 1,000, Start date: 02/02/16 16:28:00 CDT, Stop date: 03/03/16 16:27:00 CDT No Longer Active 02/02/2016 [facility] Acetaminophen Notes: Do not ex ceed 4 gm/day. (Same as: Tylenol) No Longer Active 02/02/2016 [facility] Docusate Notes: (Same as: Cola ce) (Do Not Crush) No Longer Active 02/02/2016 [facility] Ondansetron Notes: (Same as: Dannie chong) MEDICATION WASTE Product Size: 4 mg Product Wasted: 0 mg No Longer Active 02/02/2016 [facility] Sodium Chloride 0.154 MEQ/ML Injectable Solution 1,000 mL, 1,000 ml/hr, Infuse Over: 1 hr, Route: IV, 1,000, Drug form: INJ, ONCE, Priority: STAT, Dosing Weight 95 kg, Start date: 02/02/16 14:06:00 CDT, Duration: 1 doses or times, Stop date: 02/02/16 14:06:00 CDT Inactive 02/02/2016 [facility] Tylenol Notes: Do not exceed 4 gm/day. (Same as: Tylenol) Inactive 02/02/2016 [facility] Sodium Chloride 0.154 MEQ/ML Injectable Solution 1,000 mL, 1,000 ml/hr, Infuse Over: 1 hr, Route: IV, 1,000, Drug form: INJ, ONCE, Priority: STAT, Dosing Weight 95 kg, Start date: 02/02/16 13:00:00 CDT, Duration: 1 doses or times, Stop date: 02/02/16 13:00:00 CDT Inactive 02/02/2016 [facility] Rocephin Notes: (Same As: Michael mendoza). Use with 100 mL NS and infuse over 30 min MEDICATION WASTE Product Size: 1000 mg Product Wasted: 0 mg Inactive 02/02/2016 [facility] Allergies, Adverse Reactions, Alerts Substance Category Reaction Severity Reaction type Status Date Reported Comments Source ciprofloxacin Assertion Drug allergy Active [facility] [place] Immunizations No Data Provided for This Section Results Order Name Results Value Reference Range Date Interpretation Comments Source ELECTROLYTES AGAP 12.5 10.0 - 20.0 11/22/2016 [facility] ELECTROLYTES eGFR 71 11/22/2016 Result Comment: The eGFR is calculated [...] should be multiplied by the estimated BMI. [facility] ELECTROLYTES BUN 16 7 - 22 11/22/2016 [facility] ELECTROLYTES Creatinine Lvl 0.9 9 0.50 - 1.40 11/22/2016 [facility] ELECTROLYTES Glucose Lvl 120 70 - 99 11/22/2016 [facility] ELECTROLYTES Sodium Lvl 133 135 - 145 11/22/2016 [facility] ELECTROLYTES Potassium Lvl 3.5 3.5 - 5.1 11/22/2016 [facility] ELECTROLYTES Chloride Lvl 98 95 - 109 11/22/2016 [facility] ELECTROLYTES CO2 26 24 - 32 11/22/2016 [facility] ELECTROLYTES Calcium Lvl 8.7 8.5 - 10.5 11/22/2016 [facility] Segs-Bands # 3.2 1.5 - 8.1 11/22/2016 [facility] Monocytes # 0.4 0.0 - 0.8 11/22/2016 [facility] Lymphocytes # 1.8 1.0 - 5.5 11/22/2016 [facility] Plt Morph Rajni l (11/22/16 3:45 AM) 11/22/2016 [facility] RBC Morph Rajni l (11/22/16 3:45 AM) 11/22/2016 [facility] Segs 59.2 45.0 - 75.0 11/22/2016 [facility] Lymphocytes 32.0 20.0 - 40.0 11/22/2016 [facility] HEMATOLOGY Eosinophils 0.3 0.0 - 4.0 11/22/2016 [facility] Monocytes 8.1 2.0 - 12.0 11/22/2016 [facility] Basophils 0.4 0.0 - 1.0 11/22/2016 [facility] MCHC 34.4 32.0 - 36.0 11/22/2016 [facility] MCH 28.0 27.0 - 31.0 11/22/2016 [facility] HEMATOLOGY RDW 15.2 11.5 - 14.5 11/22/2016 [facility] HEMATOLOGY Platelet 215 133 - 450 11/22/2016 [facility] HEMATOLOGY MPV 8.4 7.4 - 10.4 11/22/2016 [facility] HEMATOLOGY Hct 35.9 42.0 - 54.0 11/22/2016 [facility] HEMATOLOGY MCV 81.3 80.0 - 94.0 11/22/2016 [facility] Hgb 12.3 14.0 - 18.0 11/22/2016 [facility] HEMATOLOGY RBC 4.41 4.70 - 6.10 11/22/2016 [facility] WBC 5.5 3.7 - 10.4 11/22/2016 [facility] CHEM PANEL eGFR 76 11/21/2016 Result Comment: The eGFR is calculated [...] should be multiplied by the estimated BMI. [facility] CHEM PANEL CO2 27 24 - 32 11/21/2016 [facility] CHEM PANEL Chloride Lvl 98 95 - 109 11/21/2016 [facility] CHEM PANEL AGAP 12.7 10.0 - 20.0 11/21/2016 [facility] CHEM PANEL Calcium Lvl 8.5 8.5 - 10.5 11/21/2016 [facility] CHEM PANEL Glucose Lvl 126 70 - 99 11/21/2016 [facility] CHEM PANEL BUN 13 7 - 22 11/21/2016 [facility] CHEM PANEL Creatinine Lvl 0.94 0.50 - 1.40 11/21/2016 [facility] CHEM PANEL Potassium Lvl 3.7 3.5 - 5.1 11/21/2016 [facility] CHEM PANEL Sodium Lvl 134 135 - 145 11/21/2016 [facility] Hgb 12.8 14.0 - 18.0 11/21/2016 [facility] Hct 37.4 42.0 - 54.0 11/21/2016 [facility] HEMATOLOGY MCV 82.2 80.0 - 94.0 11/21/2016 [facility] MCH 28.1 27.0 - 31.0 11/21/2016 [facility] RBC 4.55 4.70 - 6.10 11/21/2016 [facility] WBC 3.5 3.7 - 10.4 11/21/2016 [facility] Platelet 205 133 - 450 11/21/2016 [facility] RDW 15.5 11.5 - 14.5 11/21/2016 [facility] MPV 8.7 7.4 - 10.4 11/21/2016 [facility] MCHC 34.1 32.0 - 36.0 11/21/2016 [facility] Segs-Bands # 2.0 1.5 - 8.1 11/21/2016 [facility] Monocytes 9.8 2.0 - 12.0 11/21/2016 [facility] Eosinophils 0.2 0.0 - 4.0 11/21/2016 [facility] Basophils 0.9 0.0 - 1.0 11/21/2016 [facility] Lymphocytes 32.7 20.0 - 40.0 11/21/2016 [facility] Segs 56.4 45.0 - 75.0 11/21/2016 [facility] Monocytes # 0.3 0.0 - 0.8 11/21/2016 [facility] Lymphocytes # 1.1 1.0 - 5.5 11/21/2016 [facility] ELECTROLYTES CO2 28 24 - 32 11/20/2016 [facility] ELECTROLYTES Calcium Lvl 8.9 8.5 - 10.5 11/20/2016 [facility] ELECTROLYTES AGAP 12.8 10.0 - 20.0 11/20/2016 [facility] ELECTROLYTES eGFR 56 11/20/2016 Result Comment: The eGFR is calculated [...] should be multiplied by the estimated BMI. [facility] ELECTROLYTES Chloride Lvl 96 95 - 109 11/20/2016 [facility] ELECTROLYTES Sodium Lvl 133 135 - 145 11/20/2016 [facility] ELECTROLYTES Potassium Lvl 3.8 3.5 - 5.1 11/20/2016 [facility] ELECTROLYTES Glucose Lvl 198 70 - 99 11/20/2016 [facility] ELECTROLYTES BUN 14 7 - 22 11/20/2016 [facility] ELECTROLYTES Creatinine Lvl 1.2 0 0.50 - 1.40 11/20/2016 [facility] CHEM PANEL Phosphorus 2.4 2.5 - 4.5 11/20/2016 [facility] CHEM PANEL Phosphorus 2.6 2.5 - 4.5 11/20/2016 [facility] CHEM PANEL Magnesium Lvl 2.1 1.8 - 2.4 11/20/2016 [facility] CARDIAC ENZYMES Total CK 418 12 - 191 11/19/2016 [facility] CARDIAC ENZYMES Troponin-I <0.02 0.00 - 0.40 11/19/2016 [facility] CARDIAC ENZYMES CK MB Index 0.8 0.0 - 2.5 11/19/2016 [facility] [facility] CARDIAC ENZYMES CK MB 3.3 0.5 - 3.6 11/19/2016 [facility] CHEM PANEL Phosphorus 2.9 2.5 - 4.5 11/19/2016 [facility] CHEM PANEL Magnesium Lvl 2.2 1.8 - 2.4 11/19/2016 [facility] URINE AND STOOL UA Color Ltyellow 11/19/2016 [facility] URINE AND STOOL UA Urobilinogen <=1.0 mg/dL 0.1 - 1.0 11/19/2016 [facility] URINE AND STOOL UA Sq Epi None Seen 11/19/2016 [facility] URINE AND STOOL UA Nitrite Negative (11/19/16 1:27 PM) Negative 11/19/2016 [facility] URINE AND STOOL UA Leuk Est Negative (11/19/16 1:27 PM) Negative 11/19/2016 [facility] URINE AND STOOL UA Ketones Negative mg/dL Negative mg/dL 11/19/[address] [facility] [address] URINE AND STOOL UA Bili Negative *NA* (11/19/16 1:27 PM) Negative 11/19/2016 [facility] URINE AND STOOL UA Blood Negative (11/19/16 1:27 PM) Negative 11/19/2016 [facility] URINE AND STOOL UA pH 6.0 5.0 - 8.0 11/19/2016 [facility] URINE AND STOOL UA Protein Negative mg/dL Negative mg/dL 11/19/[address] [facility] [address] URINE AND STOOL UA Glucose Negative mg/dL Negative mg/dL 11/19/[address] [facility] [address] URINE AND STOOL UA Turbidity Clear (11/19/16 1:27 PM) Clear 11/19/2016 [facility] URINE AND STOOL UA Spec Grav 1.011 <=1.030 11/19/2016 [facility] URINE AND STOOL UA WBC 1 0 - 5 11/19/2016 [facility] URINE AND STOOL UA RBC <1 0 - 2 11/19/2016 [facility] Monocytes # 0.3 0.0 - 0.8 11/19/2016 [facility] Lymphocytes # 1.1 1.0 - 5.5 11/19/2016 [facility] Segs-Bands # 3.4 1.5 - 8.1 11/19/2016 [facility] Eosinophils 0.1 0.0 - 4.0 11/19/2016 [facility] Monocytes 5.3 2.0 - 12.0 11/19/2016 [facility] Lymphocytes 23.7 20.0 - 40.0 11/19/2016 [facility] Basophils 0.8 0.0 - 1.0 11/19/2016 [facility] Segs 70.1 45.0 - 75.0 11/19/2016 [facility] Plt Morph Rajni l (11/19/16 1:20 PM) 11/19/2016 [facility] RBC Morph Ranji l (11/19/16 1:20 PM) 11/19/2016 [facility] MCV 81.1 80.0 - 94.0 11/19/2016 [facility] Hgb 13.1 14.0 - 18.0 11/19/2016 [facility] RDW 15.1 11.5 - 14.5 11/19/2016 [facility] MCHC 34.6 32.0 - 36.0 11/19/2016 [facility] HEMATOLOGY MCH 28.1 27.0 - 31.0 11/19/2016 [facility] HEMATOLOGY Platelet 201 133 - 450 11/19/2016 [facility] HEMATOLOGY Hct 37.8 42.0 - 54.0 11/19/2016 [facility] HEMATOLOGY MPV 8.8 7.4 - 10.4 11/19/2016 [facility] HEMATOLOGY WBC 4.8 3.7 - 10.4 11/19/2016 [facility] HEMATOLOGY RBC 4.66 4.70 - 6.10 11/19/2016 [facility] CARDIAC ENZYMES Total CK 405 12 - 191 11/19/2016 [facility] CARDIAC ENZYMES CK MB 4.0 0.5 - 3.6 11/19/2016 [facility] CARDIAC ENZYMES CK MB Index 1.0 0.0 - 2.5 11/19/2016 [facility] CARDIAC ENZYMES Troponin-I <0.02 0.00 - 0.40 11/19/2016 [facility] CARDIAC ENZYMES Total CK 402 12 - 191 11/19/2016 [facility] CHEM PANEL Bili Total 0.7 0.2 - 1.3 11/19/2016 [facility] CHEM PANEL Globulin 3.5 2.7 - 4.2 11/19/2016 [facility] CHEM PANEL Albumin Lvl 3.7 3.5 - 5.0 11/19/2016 [facility] CHEM PANEL A/G Ratio 1.1 0.7 - 1.6 11/19/2016 [facility] CHEM PANEL Total Protein 7.2 6.4 - 8.4 11/19/2016 [facility] CHEM PANEL AST 33 0 - 37 11/19/2016 [facility] CHEM PANEL Alk Phos 114 39 - 136 11/19/2016 [facility] CHEM PANEL ALT 25 0 - 65 11/19/2016 [facility] CHEM PANEL B/C Ratio 12 6 - 25 11/19/2016 [facility] CHEM PANEL Magnesium Lvl 2.0 1.8 - 2.4 11/19/2016 [facility] HEMATOLOGY PTT 32.0 22.9 - 35.8 11/19/2016 [facility] HEMATOLOGY PT 13.8 12.0 - 14.7 11/19/2016 [facility] HEMATOLOGY INR 1.04 0.85 - 1.17 11/19/2016 [facility] SPECIAL CHEMISTRY Hgb A1C 6.3 <=5.6 % 02/12/2016 [facility] CHEM PANEL eGFR 67 02/12/2016 Result Comment: The eGFR is calculated [...] should be multiplied by the estimated BMI. [facility] CHEM PANEL Chloride Lvl 102 95 - 109 02/12/2016 [facility] CHEM PANEL Calcium Lvl 9.1 8.5 - 10.5 02/12/2016 [facility] CHEM PANEL CO2 26 24 - 32 02/12/2016 [facility] CHEM PANEL BUN 22 7 - 22 02/12/2016 [facility] CHEM PANEL Potassium Lvl 3.8 3.5 - 5.1 02/12/2016 [facility] CHEM PANEL Sodium Lvl 136 135 - 145 02/12/2016 [facility] CHEM PANEL Creatinine Lvl 1.05 0.50 - 1.40 02/12/2016 [facility] CHEM PANEL Glucose Lvl 120 70 - 99 02/12/2016 [facility] CHEM PANEL AGAP 11.8 10.0 - 20.0 02/12/2016 [facility] CHEM PANEL Phosphorus 2.7 2.5 - 4.5 02/12/2016 [facility] CHEM PANEL Magnesium Lvl 2.3 1.8 - 2.4 02/12/2016 [facility] HEMATOLOGY Segs-Bands # 3.9 1.5 - 8.1 02/12/2016 [facility] HEMATOLOGY Basophils 0.5 0.0 - 1.0 02/12/2016 [facility] HEMATOLOGY Eosinophils 0.1 0.0 - 4.0 02/12/2016 [facility] HEMATOLOGY Segs 69.2 45.0 - 75.0 02/12/2016 [facility] HEMATOLOGY Lymphocytes # 1.2 1.0 - 5.5 02/12/2016 [facility] HEMATOLOGY Monocytes # 0.5 0.0 - 0.8 02/12/2016 [facility] HEMATOLOGY Monocytes 9.0 2.0 - 12.0 02/12/2016 [facility] HEMATOLOGY Lymphocytes 21.2 20.0 - 40.0 02/12/2016 [facility] HEMATOLOGY WBC 5.6 3.7 - 10.4 02/12/2016 [facility] HEMATOLOGY MPV 9.7 7.4 - 10.4 02/12/2016 [facility] HEMATOLOGY RDW 16.2 11.5 - 14.5 02/12/2016 [facility] HEMATOLOGY Platelet 178 133 - 450 02/12/2016 [facility] HEMATOLOGY MCH 26.5 27.0 - 31.0 02/12/2016 [facility] HEMATOLOGY MCHC 32.8 32.0 - 36.0 02/12/2016 [facility] HEMATOLOGY MCV 80.7 80.0 - 94.0 02/12/2016 [facility] HEMATOLOGY Hgb 11.9 14.0 - 18.0 02/12/2016 [facility] HEMATOLOGY Hct 36.1 42.0 - 54.0 02/12/2016 [facility] HEMATOLOGY RBC 4.48 4.70 - 6.10 02/12/2016 [facility] CHEM PANEL Phosphorus 2.5 2.5 - 4.5 02/11/2016 [facility] CHEM PANEL Globulin 4.9 2.0 - 4.0 02/11/2016 [facility] CHEM PANEL Albumin Lvl 3.2 3.5 - 5.0 02/11/2016 [facility] CHEM PANEL Total Protein 8.1 6.4 - 8.4 02/11/2016 [facility] CHEM PANEL A/G Ratio 0.7 0.7 - 1.6 02/11/2016 [facility] CHEM PANEL ALT 42 0 - 65 02/11/2016 [facility] CHEM PANEL Alk Phos 106 39 - 136 02/11/2016 [facility] CHEM PANEL AST 49 0 - 37 02/11/2016 [facility] CHEM PANEL Bili Indirect 0.5 0.0 - 1.0 02/11/2016 [facility] CHEM PANEL Bili Total 0.6 0.2 - 1.3 02/11/2016 [facility] CHEM PANEL Bili Direct 0.1 0.0 - 0.3 02/11/2016 [facility] CHEM PANEL Magnesium Lvl 2.4 1.8 - 2.4 02/11/2016 [facility] CHEM PANEL eGFR 60 02/11/2016 Result Comment: The eGFR is calculated [...] should be multiplied by the estimated BMI. [facility] CHEM PANEL Calcium Lvl 9.6 8.5 - 10.5 02/11/2016 [facility] CHEM PANEL CO2 24 24 - 32 02/11/2016 [facility] CHEM PANEL AGAP 11.5 10.0 - 20.0 02/11/2016 [facility] CHEM PANEL Creatinine Lvl 1.14 0.50 - 1.40 02/11/2016 [facility] CHEM PANEL BUN 21 7 - 22 02/11/2016 [facility] CHEM PANEL Glucose Lvl 124 70 - 99 02/11/2016 [facility] CHEM PANEL Potassium Lvl 4.5 3.5 - 5.1 02/11/2016 [facility] CHEM PANEL Chloride Lvl 101 95 - 109 02/11/2016 [facility] CHEM PANEL Sodium Lvl 132 135 - 145 02/11/2016 [facility] Plt Morph Rajni l (02/11/16 10:54 AM) 02/11/2016 [facility] HEMATOLOGY Segs 69.3 45.0 - 75.0 02/11/2016 [facility] HEMATOLOGY RBC Morph Rajni l (02/11/16 10:54 AM) 02/11/2016 [facility] HEMATOLOGY Large Plt Moder ate *ABN* (02/11/16 10:54 AM) None Seen 02/11/2016 [facility] HEMATOLOGY Monocytes # 0.5 0.0 - 0.8 02/11/2016 [facility] Lymphocytes # 1.4 1.0 - 5.5 02/11/2016 [facility] Segs-Bands # 4.4 1.5 - 8.1 02/11/2016 [facility] Eosinophils 0.3 0.0 - 4.0 02/11/2016 [facility] HEMATOLOGY Monocytes 7.1 2.0 - 12.0 02/11/2016 [facility] HEMATOLOGY Lymphocytes 22.8 20.0 - 40.0 02/11/2016 [facility] HEMATOLOGY Basophils 0.5 0.0 - 1.0 02/11/2016 [facility] MCH 27.3 27.0 - 31.0 02/11/2016 [facility] HEMATOLOGY Hct 40.7 42.0 - 54.0 02/11/2016 [facility] HEMATOLOGY Hgb 13.8 14.0 - 18.0 02/11/2016 [facility] HEMATOLOGY MPV 10.1 7.4 - 10.4 02/11/2016 [facility] Platelet 160 133 - 450 02/11/2016 [facility] RDW 16.5 11.5 - 14.5 02/11/2016 [facility] MCHC 33.8 32.0 - 36.0 02/11/2016 [facility] MCV 80.6 80.0 - 94.0 02/11/2016 [facility] WBC 6.4 3.7 - 10.4 02/11/2016 [facility] HEMATOLOGY RBC 5.05 4.70 - 6.10 02/11/2016 [facility] IMMUNOLOGY C-REACTIVE PROTEIN 17.0 <=2.9 mg/L 02/11/2016 [facility] CHEM PANEL Magnesium Lvl 2.3 1.8 - 2.4 02/09/2016 [facility] HEMATOLOGY INR 0.96 0.85 - 1.17 02/08/2016 [facility] HEMATOLOGY PT 13.1 12.0 - 14.7 02/08/2016 [facility] ENDOCRINOLOGY Testosterone Tot 13 6 250 - 1100 02/08/2016 Result Comment: Males: Men with clinical ly significant hypogonadal
symptoms and testosterone values repeatedly in the
range of the 200-300 ng/dL or less, may benefit
from testosterone treatment after adequate risk
and benefits counseling. [facility] ENDOCRINOLOGY Testosterone Free 16 .1 30.0 - 135.0 02/08/2016 Result Comment: Test Performed at:
[facility] [place]
[facility], [address] [facility] [place] [address] B Miquel KRISHNA, FCAP [facility] ELECTROLYTES AGAP 9.7 10.0 - 20.0 02/08/2016 [facility] ELECTROLYTES eGFR 81 02/08/2016 Result Comment: The eGFR is calculated [...] should be multiplied by the estimated BMI. [facility] ELECTROLYTES Sodium Lvl 137 135 - 145 02/08/2016 [facility] ELECTROLYTES Chloride Lvl 103 95 - 109 02/08/2016 [facility] ELECTROLYTES Potassium Lvl 3.7 3.5 - 5.1 02/08/2016 [facility] ELECTROLYTES CO2 28 24 - 32 02/08/2016 [facility] ELECTROLYTES Calcium Lvl 9.1 8.5 - 10.5 02/08/2016 [facility] ELECTROLYTES Creatinine Lvl 0.8 8 0.50 - 1.40 02/08/2016 [facility] ELECTROLYTES Glucose Lvl 126 70 - 99 02/08/2016 [facility] ELECTROLYTES BUN 13 7 - 22 02/08/2016 [facility] HEMATOLOGY Segs 66.5 45.0 - 75.0 02/08/2016 [facility] RBC Morph Rajni l (02/08/16 8:35 AM) 02/08/2016 [facility] Large Plt Moder ate *ABN* (02/08/16 8:35 AM) None Seen 02/08/2016 [facility] Monocytes # 0.5 0.0 - 0.8 02/08/2016 [facility] Monocytes 12.5 2.0 - 12.0 02/08/2016 [facility] Lymphocytes 20.4 20.0 - 40.0 02/08/2016 [facility] Lymphocytes # 0.8 1.0 - 5.5 02/08/2016 [facility] Segs-Bands # 2.6 1.5 - 8.1 02/08/2016 [facility] HEMATOLOGY Basophils 0.5 0.0 - 1.0 02/08/2016 [facility] HEMATOLOGY Eosinophils 0.1 0.0 - 4.0 02/08/2016 [facility] HEMATOLOGY RDW 16.4 11.5 - 14.5 02/08/2016 [facility] HEMATOLOGY MCHC 33.2 32.0 - 36.0 02/08/2016 [facility] HEMATOLOGY MCH 26.9 27.0 - 31.0 02/08/2016 [facility] HEMATOLOGY MCV 80.9 80.0 - 94.0 02/08/2016 [facility] HEMATOLOGY Platelet 165 133 - 450 02/08/2016 [facility] HEMATOLOGY MPV 9.1 7.4 - 10.4 02/08/2016 [facility] HEMATOLOGY Hct 37.3 42.0 - 54.0 02/08/2016 [facility] HEMATOLOGY Hgb 12.4 14.0 - 18.0 02/08/2016 [facility] HEMATOLOGY RBC 4.61 4.70 - 6.10 02/08/2016 [facility] HEMATOLOGY WBC 3.9 3.7 - 10.4 02/08/2016 [facility] CHEM PANEL Procalcitonin Lvl 0.19 0.00 - 0.10 02/08/2016 [facility] TOXICOLOGY Gent Lvl 0.7 02/08/2016 [facility] CHEM PANEL Phosphorus 2.6 2.5 - 4.5 02/07/2016 [facility] CARDIAC ENZYMES CK MB 1.3 0.5 - 3.6 02/06/2016 [facility] CARDIAC ENZYMES CK MB Index 0.4 0.0 - 2.5 02/06/2016 [facility] Troponin-I 0.02 0.00 - 0.40 02/06/2016 [facility] CARDIAC ENZYMES Total CK 346 12 - 191 02/06/2016 [facility] CARDIAC ENZYMES CK MB Index 0.3 0.0 - 2.5 02/05/2016 [facility] CARDIAC ENZYMES CK MB 1.3 0.5 - 3.6 02/05/2016 [facility] CARDIAC ENZYMES Troponin-I <0.02 0.00 - 0.40 02/05/2016 [facility] CARDIAC ENZYMES Total CK 384 12 - 191 02/05/2016 [facility] TOXICOLOGY Gent Tr 0.3 02/05/2016 [facility] TOXICOLOGY Gent Tr TND see MAR 02/05/2016 [facility] CARDIAC ENZYMES BNP 213 <=100 pg/mL 02/05/2016 [facility] CHEM PANEL Procalcitonin Lvl 0.83 0.00 - 0.10 02/05/2016 [facility] CHEM PANEL B/C Ratio 11 6 - 25 02/03/2016 [facility] CHEM PANEL A/G Ratio 0.7 0.7 - 1.6 02/03/2016 [facility] CHEM PANEL Globulin 4.0 2.0 - 4.0 02/03/2016 [facility] CHEM PANEL AST 28 0 - 37 02/03/2016 [facility] CHEM PANEL Bili Total 1.1 0.2 - 1.3 02/03/2016 [facility] CHEM PANEL Alk Phos 112 39 - 136 02/03/2016 [facility] CHEM PANEL ALT 15 0 - 65 02/03/2016 [facility] CHEM PANEL Albumin Lvl 2.9 3.5 - 5.0 02/03/2016 [facility] CHEM PANEL Total Protein 6.9 6.4 - 8.4 02/03/2016 [facility] HEMATOLOGY Basophils # 0.2 0.0 - 0.2 02/03/2016 [facility] HEMATOLOGY PTT 36.9 22.9 - 35.8 02/03/2016 [facility] SPECIAL CHEMISTRY Free PSA/PSA 43.6 >=25.0 % 02/03/2016 [facility] SPECIAL CHEMISTRY PSA Free 19.16 02/03/2016 [facility] SPECIAL CHEMISTRY PSA 43.9 0.0 - 4.0 02/03/2016 [facility] CHEM PANEL Lactic Acid Lvl 2.0 0.5 - 2.2 02/02/2016 [facility] CHEM PANEL Procalcitonin Lvl 0.40 0.00 - 0.10 02/02/2016 [facility] URINE AND STOOL UA Leuk Est Trace *ABN* (02/02/16 2:06 PM) Negative 02/02/2016 [facility] URINE AND STOOL UA pH 6.5 5.0 - 8.0 02/02/2016 [facility] URINE AND STOOL UA Protein 100 mg/dL Negative mg/dL 02/02/2016 [facility] URINE AND STOOL UA Bili Small *ABN* (02/02/16 2:06 PM) Negative 02/02/2016 [facility] URINE AND STOOL UA Blood Large *ABN* (02/02/16 2:06 PM) Negative 02/02/2016 [facility] URINE AND STOOL UA Glucose 100 mg/dL Negative mg/dL 02/02/2016 [facility] URINE AND STOOL UA Ketones 15 mg/dL Negative mg/dL 02/02/2016 [facility] URINE AND STOOL UA Urobilinogen 1.0 0.1 - 1.0 02/02/2016 [facility] URINE AND STOOL UA Nitrite Positive *ABN* (02/02/16 2:06 PM) Negative 02/02/2016 [facility] URINE AND STOOL UA Spec Grav 1.020 <=1.030 02/02/2016 [facility] URINE AND STOOL UA Color [place] *ABN* (02/02/16 2:06 PM) Yellow 02/02/2016 [facility] URINE AND STOOL UA Turbidity Cloudy *ABN* (02/02/16 2:06 PM) Clear 02/02/2016 [facility] URINE AND STOOL UA RBC >100 /HPF 0 - 2 02/02/2016 [facility] URINE AND STOOL UA WBC 3-5 /HPF None Seen /HPF 02/02/2016 [facility] URINE AND STOOL Micro? Performed (02/02/16 2:06 PM) 02/02/2016 [facility] URINE AND STOOL UA Sq Epi Rare /LPF Few /LPF 02/02/2016 [facility] URINE AND STOOL UA Bacteria Moderate /HPF None Seen /HPF 02/02/2016 [facility] CHEM PANEL Total Protein 8.3 6.4 - 8.4 02/02/2016 [facility] CHEM PANEL Albumin Lvl 3.8 3.5 - 5.0 02/02/2016 [facility] CHEM PANEL ALT 18 0 - 65 02/02/2016 [facility] CHEM PANEL Alk Phos 113 39 - 136 02/02/2016 [facility] CHEM PANEL Bili Total 1.5 0.2 - 1.3 02/02/2016 [facility] CHEM PANEL AST 25 0 - 37 02/02/2016 [facility] CHEM PANEL B/C Ratio 10 6 - 25 02/02/2016 [facility] CHEM PANEL Globulin 4.5 2.0 - 4.0 02/02/2016 [facility] CHEM PANEL A/G Ratio 0.8 0.7 - 1.6 02/02/2016 [facility] CARDIAC ENZYMES Total CK 532 12 - 191 02/02/2016 [facility] CARDIAC ENZYMES CK MB Index 0.4 0.0 - 2.5 02/02/2016 [facility] CARDIAC ENZYMES CK MB 2.0 0.5 - 3.6 02/02/2016 [facility] CARDIAC ENZYMES Troponin-I <0.02 0.00 - 0.40 02/02/2016 [facility] HEMATOLOGY Basophils # 0.1 0.0 - 0.2 02/02/2016 [facility] Pathology Reports No Data Provided for This Section Diagnostic Reports Report Value Date Source Chest 2 views DX EXAM: Chest 2 views DX HISTORY: - pleural effusion, CHF COMPARISON: 12/07/2018 Normal heart size. Basilar atelectatic changes. No effusion or pneumothorax. Mild discogenic degenerative changes are noted. IMPRESSION: No effusion at this time. 12/21/2018 TEMI Nash Chest 2 views DX Exam: Two-vie w chest x-ray Reason for Exam: - cough; shortness of breath Comparison Exam: X-ray 02/10/2016 Discussion: Cardiomediastinal silhouette is within normal limits. Mild pulmonary vascular congestion. Ill-defined airspace consolidation seen overlying the right lower lung. Correlate for infectious etiology. Mild right-sided pleural effusion. No acute bony abnormalities. Impression: 1. Ill-defined airspace consolidation s een overlying the right lower lung. Correlate for infectious etiology. 12/07/2018 TEMI Nash Brain wo contrast CT Brain wo contrast [...] seen. IMPRESSION: 1. No acute intracranial abnormality mindy ntified. 2. Moderate chronic microvascular ischem ia. 3. Mild ventriculomegaly likely compensa tory to the cerebral atrophy. 01/09/2018 TEMI Nash Carotid artery Doppler bilat US EXAM: US [...] measuring 0.6. IMPRESSION 1. Mild calcified atherosclerotic plaqu e involving the bilateral carotid bulbs and proximal left internal carotid artery. No hemodynamically significant stenosis. 2. Vertebral arteries: Antegrade flow w ith normal waveforms bilaterally. According to the 2003 [...] Aniket CB, Negro GL, et. al. 12/28/2017 [facility] Retroperitoneal Complete US EX AM: US RETROPERITONEAL COMPLETE DATE: 12/28/2017 9:29 AM [...] Mild cortical atrophy without any hydronephrosis. 12/28/2017 [facility] Spine lumbar 2 or 3 views DX E XAM: XR LUMBAR SPINE DATE: 12/26/2017 8:35 AM [...] Multilevel spondylosis 2. Multilevel facet arthropathy most sev ere in the lower lumbar spine 3. Suggestion of short lumbar pedicles, which places patient at increased risk for spinal stenosis. 12/26/2017 TEMI Nash Elbow 3 views DX Exam: Left el bow x-ray, 3 views Reason for Exam: - left elbow pain Comparison Exam: None Discussion: No acute bony abnormalities are seen. 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 Bulky calcification is seen in close proximity to the flexor tendon group suggestive of calcific tendinitis. Correlate with clinical exam and history. Impression: 1. No acute bony abnormalities identifi ed. Bulky calcification is seen in close proximity to the flexor tendon group suggestive of calcific tendinitis. Correlate with clinical exam and history. 11/29/2017 TEMI Nash Knee 1-2 Views unilateral DX E xam: Right knee x-ray, 2 views Reason for Exam: - right knee pain Comparison Exam: none Discussion: No fractures or dislocations are seen of the right knee. Mild osteoarthritis seen within the medial compartment and the anterior compartment. No intraosseous lesions. No radiopaque foreign bodies. Impression: 1. No acute bony abnormalities seen wit hin the right knee. 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 SL: [id number] 11/19/2016 [facility] Carotid artery Doppler bilat US Exam: Bilateral [...] Vertebral arteries are antegrade in flow. 06/17/2016 TEMI Manriqueza Chest 1view DX Clinical Indica tion: Central Line Placement Comparison: None FINDINGS: AP [...] head. IMPRESSION: 1. Prominence of the cardiac silhouette . Right upper extremity PICC line with the distal tip overlying the right atrium. SL: [id number] 02/10/2016 [facility] Pelvis w/wo contrast MRI EXAM: MRI of the pelvis without and with 15 cc of Omniscan IV contrast INDICATION: Fever, pelvic infection COMPARISON: CT abdomen and pelvis without IV contrast performed on 02/02/2016 FINDINGS: Visualized portions of the small bowel and colon are nondilated. Abdominal aorta is normal in caliber. No threshold enlarged inguinal or lower abdominal lymph nodes identified. Zelaya catheter is present. The bladder is collapsed. [...] 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 SL: [id number] 02/06/2016 [facility] Renal Stone CT Clinical Indica tion: Abdominal pain, acute; Comparison: None CONTRAST: Intravenous contrast was not administered for this exam. Gastrointestinal contrast was not administered. TECHNIQUE: 3.[address] images of the abdomen a nd pelvis were obtained without intravenous administration of [...] bladder. The urinary bladder is decompressed by Zelaya catheter. Evaluation of the bowel is limited [...] renal stone. 2. Enlarged prostate with mild surroundi ng inflammatory changes. Clinical correlation for prostatitis may be helpful. SL: [id number] 02/02/2016 [facility] Consultation Notes No Data Provided for This Section Discharge Summaries No Data Provided for This Section History and Physicals No Data Provided for This Section Vital Signs Vital Sign Value Date Comments Source Respitory Rate 16 11/22/2016 [facility] Heart Rate 87 11/22/2016 [facility] Systolic (mm Hg) 161 11/22/2016 [facility] Diastolic (mm Hg) 95 11/22/2016 [facility] Temperature Oral (F) 98.7 F 11/22/2016 [facility] Systolic (mm Hg) 149 11/22/2016 [facility] Diastolic (mm Hg) 75 11/22/2016 [facility] Heart Rate 92 11/22/2016 [facility] Respitory Rate 17 11/22/2016 [facility] Temperature Oral (F) 98.8 F 11/22/2016 [facility] Temperature Oral (F) 98.3 F 11/22/2016 [facility] Respitory Rate 18 11/22/2016 [facility] Systolic (mm Hg) 168 11/22/2016 [facility] Diastolic (mm Hg) 97 11/22/2016 [facility] Heart Rate 90 11/22/2016 [facility] Weight 217 11/19/2016 [facility] BMI Calculated 77.22 11/19/2016 [facility] Height 167.64 cm 11/19/2016 [facility] Respitory Rate 18 02/12/2016 [facility] Temperature Oral (F) 98.3 F 02/12/2016 [facility] Heart Rate 73 02/12/2016 [facility] Systolic (mm Hg) 138 02/12/2016 [facility] Diastolic (mm Hg) 83 02/12/2016 [facility] Heart Rate 72 02/12/2016 [facility] Respitory Rate 18 02/12/2016 [facility] Temperature Oral (F) 97.8 F 02/12/2016 [facility] Systolic (mm Hg) 147 02/12/2016 [facility] Diastolic (mm Hg) 85 02/12/2016 [facility] Systolic (mm Hg) 119 02/12/2016 [facility] Diastolic (mm Hg) 73 02/12/2016 [facility] Temperature Oral (F) 98.4 F 02/12/2016 [facility] Heart Rate 83 02/12/2016 [facility] Respitory Rate 18 02/12/2016 [facility] Weight 95 0 02/02/2016 [facility] BMI Calculated 32.8 02/02/2016 [facility] Height 170.18 cm 02/02/2016 [facility] Encounters Location Location Details Encounter Type Encounter Number Reason For Visit Attending Provider ADM Date DC Date Status Source [facility] Inpatient [id number] Lulú Floresoscar 02/02/2016 02/12/2016 [facility] [place] [facility] [id number] Dillan Frankel Jr 06/17/2016 06/18/2016 [facility] [place] [facility] Inpatient [id number] [place] 11/19/2016 11/22/2016 [facility] [place] [facility] [id number] Eladio Saini 11/29/2017 11/30/2017 [facility] [place] [facility] Out[facility] [place] [facility] [id number] Eladio Saini 12/26/2017 12/27/2017 [facility] [place] [facility] Outpatient [facility] - [place] [facility] [id number] Eladio Saini 12/28/2017 12/29/2017 [facility] [place] [facility] Out[facility] [place] [facility] [id number] Eladio Saini 01/09/2018 01/10/2018 [facility] [place] [facility] [place] [facility] [id number] 05 Eladio Saini 12/07/2018 12/08/2018 [facility] [place] [facility] Out[facility] [place] [facility] [id number] 06 Eladio Saini 12/21/2018 12/22/2018 [facility] [place] Procedures Procedure Code Date Perfomer Comments Source Carpal tunnel release [id number] [facility], [facility] [place], [place], [facility] [place] Cholecystectomy [id number] [facility], [facility] [place] [place] [place] Rotator cuff repair [id number] [facility] [place],[facility] [place] Assessment and Plan Assessment and Plan Date Source Extracted from:Title: Progress Note Author: [place] DO Date: [...] Treatments Prophylaxis amb Disposition pending echo read 11/22/2016 [place] Extracted from:Title: Hospitalist julia grimes summary Author: Jose Montero MD Date: 02/12/16 *Admission date: 02/02/2016 *Discharge date: 02/12/2016 *Admission diagnosis: 1. Sepsis 2nd to acute bacterial prostat itis vs UTI. 2. Acute renal failure. 3. Obstructive uropathy 2nd to BPH/prost atis. *Discharge diagnosis: 1. Resolved sepsis. 2. Acute bacterial prostatitis with mult iple small abscesses. 3. Obstructive uropathy 2nd to BPH/prost atitis s/p Zelaya placement. *Secondary diagnosis: -DM2 -Hypertension. [...] 80 years old male with history of hypert ension, DM2. The patient presented with signs of [...] will switch to glipizide 2.5mg/d. PHYSICAL EXAM: Vitals Tmp(F) Pulse BP RR SpO2 FIO2 02/11 12:00 98.3 73 138/83 1 8 95 --- 06 07:00 97.8 72 147/85 1 8 99 --- 06 00:00 98.4 83 119/73 1 8 97 --- 02/10 19:00 98.2 75 152/80 1 6 97 --- 06 12:00 98.1 82 114/74 1 8 97 --- 24 Hr Tmax: 98.4F (36.89c) at 06/ 00:0 0 Vital Signs are the last 5 in the past 48 hours. Medications on discharge: - Please see completed medication reconc iliation list. -Patient condition upon discharge: hem odynamically stable. -Disposition: SNF. -Follow up: dr. Conroy, urologist, in 1 week. PCP in 2 weeks. Discharge planning took approximately 35 minutes. Extracted from:Title: Hospitalist progress note Author: Jose Montero MD Date: 02/12/16 SUBJECTIVE: Afebrile. No vomiting. Vitals Tmp(F) Pulse BP RR SpO2 FIO2 02/11 07:00 97.8 72 147/85 1 8 99 --- 02/11 00:00 98.4 83 119/73 1 8 97 --- 02/10 19:00 98.2 75 152/80 1 6 97 --- 02/10 12:00 98.1 82 114/74 1 8 97 --- 02/10 07:00 98.0 77 143/87 1 8 96 --- 24 Hr Tmax: 98.4F (36.89c) at 02/11 00:0 0 Vital Signs are the last 5 in the past 48 hours. PHYSICAL EXAM: General: awake and alert. HEENT: OMARI, EOMI. Neck: supple, no JVD. Chest: clear breath sounds bilaterally, no wheezing. Cardiovascular: regular rate and rhythm, no murmurs. Abodmen: soft, non tender. no organomegaly. Extremities: no peripheral edema. Pulses equal. : zelaya in place. No hematuria. Skin: no rash. 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 no focal signs. Labs/imaging: [facility] BUN: 22 02/12/16 Hct: 36.1 Low 02/12/16 Hgb: 11.9 Low 02/12/16 MCH: 26.5 Low 02/12/16 MCHC: 32.8 02/12/16 MCV: 80.7 02/12/16 MPV: 9.7 02/12/16 Platelet: 178 02/12/16 RBC: 4.48 Low 02/12/16 RDW: 16.2 High 02/12/16 WBC: 5.6 02/12/16 CK MB: 1.3 02/06/16 ASSESSMENT/PLAN: 1. Resolved sepsis. 2. Acute prostatis with abscess. Recomme nd 4 weeks of IV meropenem as per ID recommendations. Small (less than 1cm) abscesses in prostate. PICC line placed. 3. Uncontrolled hypertension. Now bp on goal. I will decrease metoprolol to 50mg bid. Will resume lisinopril if needed. 4. Acute renal failure, resolved. 5. Obstructive uropathy 2nd to bph/prost atitis. Zelaya in placed. Will need outpatient follow up. I will recommend to stop testosterone treatment since it can cause prostatitis, bph. 6. DM2. Metformin held due to sepsis and ARF. Will resume diabetic diet. I will get a1c. Awaiting SNF placement for IV abx. Extracted from:Title: Hospitalist History and Physical Author: Lulú Logan MD Date: 02/02/16 Assessment/Plan sepsis 2/2 uti/prostatitis in the setting of urinary retention: will start the patient on zosyn; await urine culture; urology c/s htn: continue bp meds arf: 2/2 obstruction DM: poct iss; hold oha Prophylaxis hsq Disposition admit as inpatient 02/12/2016 [facility] Plan of Care No Data Provided for This Section Social History Social History Date Source Social History TypeResponse Alcohol Never Smoking Status Never smoker; Ready to change: No; Concerns about tobacco use in household: No; Exposure to Tobacco Smoke None; Cigarette Smoking Last 365 Days No; Reg Smoking Cessation Counseling No entered on: 11/19/16 11/19/2016 TEM[facility] Nash Social History TypeResponse Alcohol Never Smoking Status Never smoker; Ready to change: No; Concerns about tobacco use in household: No; Exposure to Tobacco Smoke None; Cigarette Smoking Last 365 Days No; Reg Smoking Cessation Counseling No entered on: 11/19/16 11/19/2016 [facility] Jeffrey Social History TypeResponse Alcohol Never Smoking Status Never smoker; Ready to change: No; Concerns about tobacco use in household: No; Exposure to Tobacco Smoke None; Cigarette Smoking Last 365 Days No; Reg Smoking Cessation Counseling No 11/19/2016 [facility] Social History TypeResponse Smoking Status Never smoker; Exposure to Tobacco Smoke None; Cigarette Smoking Last 365 Days No; Reg Smoking Cessation Counseling No 02/02/2016 [facility] Family History No Data Provided for This Section Advance Directives No Data Provided for This Section Functional Status No Data Provided for This Section
--- OUTSIDE RECORDS SUMMARY | 2020-04-17 04:45 | XMS REPORT | Continuity of Care Document ---
Author Author [facility] t Organization [facility] Address [address] [place] [address] Phone Unavailable Care Team Providers Care Video Surveillance Technician Name Role Phone TSEVO , DO Brittany JOHNSON PCP Yan PEREZ Attphys Unavailable Sonal ORDONEZ Attphys Unavailable Anushka LAM Attphys Unavailable AVIS FLORES Attphys Unavailable Demar Saini Attphys Anali ANGELA Attphys Unavailable [place] Attphys Silvestre Frankel Jr Attphys Lulú Logan Attphys JUNIOR GUZMAN Admphys Unavailable Alfred GARCIA Admphys Unavailable AVIS FLORES Admphys Unavailable [place] Admphys Lulú [place] Admphys Payers Payer Name Policy Type Policy Number Effective Date Expiration Date S reggieFormerly [facility] [id number] [id number] xxxxxx 2019 00:00:00 Sam Cordova Other Medicare Replacement [id number] [facility] Lizzy Plus [id number] 2018 00:00:00 [facility] Problems Condition Name Condition Details Condition Category Status Onset Date Resolution Date Last Treatment Date Treating Clinician Comments Source Bilateral impacted cerumen Bilateral impacted cerumen Disease Active 2017-12-30 00:00:[address] Sensorineural hearing loss (SNHL) of both ears Sensori neural hearing loss (SNHL) of both ears Disease Active 2017-12-30 00:00:00 Sam Cordova HTN/DM HTN/ DM Active 11/18/2016 [facility] Diagnosis Active 2016-11-18 11:30:00 2016-11-22 09:32:00 Jimenez Palencia HYPONATREMIA, HYPOKALEMIA HYPO NATREMIA, HYPOKALEMIA Active 11/18/2016 [facility] Diagnosis Active 2016-11-18 11:30:00 2016-11-29 21:59:00 Jimenez Palencia UNABLE TO VOID UNAB LE TO VOID Active 02/02/2016 [facility] Diagnosis Active 2016-02-02 00:00:00 2016-09-22 11:49:00 Jimenez Palencia Congestive heart failure Congestive heart failure (CHF) Problem Active [facility] Fever of unknown origin Fever of unknown origin Problem Active [facility] Leukopenia Leukopenia Problem Active [facility] Acute on chronic congestive heart failure Problem Active [facility] Dizziness and giddiness Dizz iness and giddiness 01/18/2018 [facility] [place] Problem 2018-01-18 19:06:10 [facility] Cerebral ischemia Cere bral ischemia 01/18/2018 [facility] [place] Problem 2018-01-18 19:06:10 Jimenez Palencia Other specified disorders of brain Other specified disorders of brain 01/18/2018 [facility] [place] Problem 2018-01-18 19:06:10 Jimenez Palencia Pain in left elbow Pain in left elbow 03/07/2018 [facility] [place] Problem 2018-03-07 16:23:57 Jimenez Palencia Secondary hypertension, unspecified Secondary hypertension, unspecified 11/25/2016 [place] Problem 2016-11-25 01:52:44 [facility] Diabetes mellitus (disorder) D iabetes mellitus (disorder) Resolved Problem 12/24/2018 [facility], [facility] [place], [place], [facility] [place] Problem Resolved 2018-12-24 00:43:09 [facility] Hypertensive disorder, systemic arterial (disorder) Hypertensive disorder, systemic arterial (disorder) Resolved Problem 12/24/2018 [facility], [facility] [place], [place], [facility] [place] Problem Resolved 2018-12-24 00:43:09 [facility] [place] Arthritis (disorder) Arth ritis (disorder) Resolved Problem 12/24/2018 [facility] [place], [place], [facility] [place] Problem Resolved 2018-12-24 00:43:09 [facility] Vertigo (finding) Vert igo (finding) Resolved Problem 12/24/2018 [facility] [place],[facility], [facility] [place] Problem Resolved 2018-12-24 00:43:09 [facility] SEPSIS DUE TO UNSPECIFIED STAPHYLOCOCCUS SEPSIS DUE TO UNSPECIFIED STAPHYLOCOCCUS Active [place] Diagnosis Active 2016-09-22 11:49:00 [facility] SECONDARY HYPERTENSION, UNSPECIFIED SECONDARY HYPERTENSION, UNSPECIFIED Active [place] Diagnosis Active 2016-11-22 09:32:00 [facility] HYPO-OSMOLALITY AND HYPONATREMIA HYPO-OSMOLALITY AND HYPONATREMIA Active [place] Diagnosis Active 2016-11-29 21 :59:00 [facility] HYPOKALEMIA HYPO KALEMIA Active [place] Diagnosis Active 2016-11-29 21:59:00 Rowdy Palencia Pain in right knee Pain in right knee 12/06/2017 03/07/2018 [facility] [place] Problem 2017-12-06 04:10:16 2018-03-07 16:2 3:57 2018-03-07 16:23:57 [facility] Allergies, Adverse Reactions, Alerts Allergy Name Allergy Type Status Severity Reaction(s) Onset Date Inacti ve Date Treating Clinician Comments Source ciprofloxacin DA Active U 2020-04-03 00:00:00 [facility] No Known Allergies DA Active U 2019-11-08 00:00:00 [facility] Ciprofloxacin Propensity to adverse reactions to drug Active Other (See Comments) 2017-12-30 00:00:00 Ajay Cordova ciprofloxacin ciprofloxacin Active [facility] Family History Family Member Diagnosis Comments Start Date Stop Date Source Natural brother Cancer Sam Del Cid ethodist Natural father Heart disease Sam Cordova Social History Social Habit Start Date Stop Date Quantity Comments Source Sex Assigned At [place] [facility] Alcohol intake 2017-12-30 00:00:00 2017-12-30 00:00:00 Current non-drinker of alcohol (finding) Sam Cordova Social History 2016-11-19 21:57:08 2016-11-19 21:57:08 Jimenez Palencia Smoking Status Start Date Stop Date Source Social History [facility] Medications Ordered Medication Name Filled Medication Name Start Date Stop Da te Current Medication? Ordering Clinician Indication Dosage Frequency Signature (SIG) Comments Components Source acetaminophen-codeine (TYLENOL WITH CODEINE #3) 300-30 mg pe r tablet 2017-11-29 00:00:00 Yes Sam Cordova citalopram (CeleXA) 20 MG tablet 2017-11-29 00:00:00 Yes Sam Cordova acyclovir (ZOVIRAX) 200 MG capsule 2017-10-28 00:00:00 Yes Sam Cordova hydroCHLOROthiazide (HYDRODIURIL) 25 MG tablet 2017-10-28 00:00: [address] pantoprazole (PROTONIX) 40 MG EC tablet 2017-10-27 00:00:00 Ye s Sam Cordova finasteride (PROSCAR) 5 mg tablet 2017-10-20 00:00:00 Yes Sam Cordova tamsulosin (FLOMAX) 0.4 mg capsule,extended release 24hr 2017-10-20 00:00:00 Yes Sam Cordova amLODIPine (NORVASC) 10 mg tablet 2017-10-10 00:00:00 Yes Sam Cordova lisinopril (PRINIVIL,ZESTRIL) 40 mg tablet 2017-10-10 00:00:00 Yes Sam Cordova Metformin hydrochloride 1000 MG Oral Tablet 2016-11-22 17:43:00 Yes 1,000 mg = 1 tab, PO, BID, # 60 tab, 0 Refill(s) Jimenze Palencia carvedilol 12.5 mg oral tablet 2016-11-22 17:43:00 Yes 12.5 mg = 1 tab, PO, Q12H, # 60 tab, 0 Refill(s) Helen Palencia Amoxicillin 875 MG / Clavulanate 125 MG Oral Tablet [Augment in 875-mg] 2016-11-22 17:43:00 Yes 1 tab, PO, Q12H, X 10 day, # 20 tab, 0 Refill(s) Jimenez Palencia Acetaminophen 300 MG / Codeine Phosphate 30 MG Oral Tablet [Tylenol with Codeine #3] 2016-11-22 17:43:00 No 1 - 2 tab, PO, Q4H, PRN Pain, X 2 day, # 20 tab, 0 Refill(s) Jimenez Palencia Amoxicillin 875 MG / Clavulanate 125 MG Oral Tablet [Augment in 875-mg] 2016-11-22 14:00:00 No Notes: With food. (Same as: Augmentin 875) Jimenez Palencia Metformin hydrochloride 1000 MG Oral Tablet 2016-11-21 14:00:00 No Notes: (Same as: Glucophage) Take with meal Jimenez Palencia Glipizide 2016-11-21 12:30:00 No Notes: (Same as: Glucotrol) 30 min before meals. Jimenez Palencia Benzocaine 15 MG / Menthol 3.6 MG Lozeng e [Cepacol Sore Throat Pain Relief 15/3.6] 2016-11-21 02:42:00 No Notes: Joaquin e as: Cepacol Jimenez Palencia Amlodipine 2016-11-20 15:00:00 No Notes: (S mervat as: Norvasc) Jimenez Palencia metoprolol tartrate 2016-11-20 03:00:00 No Notes: (Same as: Lopressor) Jimenez Palencia Coreg 2016-11-20 03:00:00 No Notes: Give with food. (Same As: Coreg) Jimenez Palencia Fluticasone propionate 0.05 MG/ACTUAT Metered Dose Nasal Spr ay [Flonase] 2016-11-20 01:36:00 No Notes: (Same as: F lonase) Jimenez Palencia tamsulosin 2016-11-19 23:00:00 No Notes: (Same As: Flomax) "Do Not Crush" Jimenez Palencia Doxazosin 2016-11-19 23:00:00 No Notes: (Sa me as: Cardura) Jimenez Palencia benzonatate 2016-11-19 23:00:00 No 100 mg, Route: PO, Drug form: CAP, TID, Dosing Weight 217, kg, Start date: 11/19/16 17:00:00 ADULT MANAGER, Duration: 30 day, Stop date: 12/19/16 13:00:00 CDT Nehemias Palencia Acetaminophen 325 MG / Hydrocodone Bitartrate 5 MG Oral Tabl et 2016-11-19 20:40:00 No Notes: (Sa me as: Staples 325/5) Do not exceed 4gm/day of acetaminophen. [facility] Acetaminophen 300 MG / Codeine Phosphate 30 MG Oral Tablet [Tylenol with Codeine #3] 2016-11-19 20:40:00 No Notes: Do not exceed 4gm/day of acetaminophen. (Same as: Tylenol with Codeine # 3) [facility] benzonatate 2016-11-19 19:34:00 No Notes: (Same As: Racquel Bui) "Do Not Crush" [facility] Hydralazine 2016-11-19 19:33:00 No Notes: (Same as: Apresoline) Push over 5 minutes [facility] Insulin, Aspart, Human 2016-11-19 19:33:00 No Notes: Roll in palms of hands gently; Do not shake vigorously. (Same as: NovoLOG) "single patient use only" WASTE: F/P - Black; E - Municipal Trash Bin Stable for 28 days at room temperature. Expires in days from Date [facility] Dextrose 50% Syringe 2016-11-19 19:33:00 No 12.5 gm, 25 mL, Route: IVP, Drug Form: INJ, Dosing Weight 217, kg, PRN, PRN Blood Glucose Results, Start date: 11/19/16 13:33:00 ADULT MANAGER, Duration: 30 day, Stop date: 12/19/16 14:32:00 CDT [facility] Glucagon 2016-11-19 19:33:00 No 1 mg, Route: IM, Drug form: PDR/INJ, PRN, Dosing Weight 217, kg, PRN Blood Glucose Results, Start date: 11/19/16 13:33:00 ADULT MANAGER, Duration: 30 day, Stop date: 12/19/16 14:32:00 CDT [facility] Fluticasone propionate 0.05 MG/ACTUAT Metered Dose Nasal Spr ay [Flonase] 2016-11-19 19:23:00 No Notes: (Same as: F lonase) Jimenez Palencia Docusate Sodium 100 MG Oral Capsule 2016-11-19 19:18:00 No Notes: (Same as: Colace) (Do Not Crush) Chance Palencia Acetaminophen 325 MG / Hydrocodone Bitartrate 5 MG Oral Tabl et 2016-11-19 19:15:00 No Notes: (Sa me as: Staples 325/5) Do not exceed 4gm/day of acetaminophen. [facility] Ondansetron 2016-11-19 19:15:00 No Notes: (Same as: Zofran) MEDICATION WASTE Product Size: 4 mg Product Wasted: ___ mg [facility] Acetaminophen 2016-11-19 19:15:00 No Notes: Do not exceed 4 gm/day. (Same as: Tylenol) [facility] sodium phosphate + D5W 240 mL 2016-11-19 19:13:00 No 30 mmol, 10 mL, Route: IVPB, PRN, Dosing Weight 217, kg, PRN Abnormal Lab Result, For NON-ICU Patients Only., Start date: 11/19/16 13:13:00 ADULT MANAGER, Duration: 30 day, Stop date: 12/19/16 14:12:00 CDT [facility] sodium phosphate + D5W 245 mL 2016-11-19 19:13:00 No 15 mmol, 5 mL, Route: IVPB, PRN, Dosing Weight 217, kg, PRN Abnormal Lab Result, For NON-ICU Patients Only., Start date: 11/19/16 13:13:00 ADULT MANAGER, Duration: 30 day, Stop date: 12/19/16 14:12:00 CDT [facility] Calcium Gluconate 2016-11-19 19:13:00 No Notes: WASTE: F/P - Sink; E - Municipal Trash Bin [facility] Magnesium Sulfate 2016-11-19 19:13:00 No Notes: WASTE: F/P - Sink; E - Municipal Trash [facility] Magnesium Oxide 2016-11-19 19:13:00 No Notes: (Same as: Mag-Ox 400) Magnesium oxide [id number] elemental magnesium Dose=____mg magnesium oxide (___mg elemental magnesium) [facility] potassium phosphate-sodium phosphate 250 mg-280 mg-160 mg oral powder for reconstitution 2016-11-19 19:13:00 No Notes: (Same as: Phos-NaK) Each 1.5 gm pkt has 250mg phosphorous. Mix w/2.5oz water and stir. Jimenez Palencia potassium phosphate + sodium chloride 0.9% INJ 240 mL 2016-11-19 19:13:00 No Notes: (Same as : K Phosphate.) 1 mMol phoshate has 1.47 mEq potassium Infuse over 4 hours Jimenez Palencia potassium phosphate + sodium chloride 0.9% INJ 245 mL 2016-11-19 19:13:00 No Notes: (Same as : K Phosphate.) 1 mMol phoshate has 1.47 mEq potassium Infuse over 4 hours Jimenez Palencia potassium chloride 2016-11-19 19:13:00 No Notes: (Same as: Potassium Chloride) Jimenez Palencia Sodium Chloride 0.154 MEQ/ML Injectable Solution 2016-11-19 18:5 8:00 No 1,000 mL, Rate: 100 ml/hr, I nfuse over: 10 hr, Route: IV, Dosing Weight 217 kg, Total Volume: 1,000, Start date: 11/19/16 12:58:00 ADULT MANAGER, Duration: 30 day, Stop date: 12/19/16 12:57:00 CDT Chance Palencia metoprolol tartrate 2016-02-12 22:00:00 No Notes: (Same as: Lopressor) Jimenez Palencia meropenem 500 MG Injection [Merrem] 2016-02-12 20:17:00 Yes 500 mg, IV, Q6H Jimenez Palencia Glipizide 5 MG Oral Tablet 2016-02-12 19:18:00 Yes 2.5 mg = 0.5 tab, PO, Daily, # 15 tab, 0 Refill(s) Alessandro al [facility] tamsulosin 0.4 mg oral capsule 2016-02-12 19:18:00 Yes 0.4 mg = 1 cap, PO, After Dinner, 0 Refill(s) Rowdy Palencia metoprolol tartrate 50 mg oral tablet 2016-02-12 19:18:00 Y es 50 mg = 1 tab, PO, BID, 0 Refill(s) Jimenez mohan docusate sodium 100 mg oral capsule 2016-02-12 19:18:00 Yes 100 mg = 1 cap, PO, BID, PRN Constipation, 0 Refill(s) Jimenez Palencia Acetaminophen 325 MG / Hydrocodone Bitartrate 5 MG Oral Tabl et [Staples 5/325] 2016-02-12 19:18:00 Yes 1 tab, PO, Q6H, PRN Pain Score 1-3, 0 Refill(s) Jimenez Palencia Spironolactone 2016-02-10 14:47:00 No Notes: (Same As: Aldactone) [facility] Gentamicin level scheduled 2016-02-10 00:30:00 No Gentamicin level scheduled, Gent level due, Drug form: MISC, Route: MISC, ONCE, 02/09/16 19:30:00 CDT, Stop date: 02/09/16 19:30:00 CDT Me jose a Palencia Tums 2016-02-09 14:00:00 No Notes: (Same As: Tums) Calcium Carbonate 500 mg = 200 mg elemental calcium Dose = mg calcium carbonate ( mg elemental calcium) [facility] Famotidine 40 MG Oral Tablet [Pepcid] 2016-02-09 02:30:00 N o Notes: (Same as: Pepcid) [facility] Flomax 2016-02-08 22:00:00 No Notes: (Same As: Flomax) "Do Not Crush" [facility] Saline Flush 0.9% 2016-02-08 21:00:00 No Notes: (Same as: BD Posiflush) [facility] Lidocaine Hydrochloride 10 MG/ML Injectable Solution 02-07 19:00:00 No Notes: Preservative free. (Same as: Xyl ocaine MPF) [facility] Saline Flush 0.9% 2016-02-08 18:06:00 No Notes: (Same as: BD Posiflush) [facility] Gentamicin level scheduled 2016-02-08 00:30:00 No Gentamicin level scheduled, Gent level due, Drug form: MISC, Route: MISC, ONCE, 02/07/16 19:30:00 CDT, Stop date: 02/07/16 19:30:00 CDT ashlee Arceoann potassium phosphate + Sodium Chloride 0.9% IV 250 mL 02-06 00:02:00 No Notes: (Same as: K Phosphate.) 1 mMol phoshate has 1.47 mEq potassium Infuse over 4 hours [facility] metoprolol tartrate 2016-02-06 13:25:00 No Notes: (Same as: Lopressor) [facility] Merrem 2016-02-05 23:00:00 No 50, Extended infusion, infuse over 3 hours, Start date: 02/05/16 18:00:00 CDT, Duration: 30 day, Stop date: 03/06/16 12:00:00 CDT [facility] Gentamicin trough due 2016-02-05 20:30:00 No Gentamicin trough due, -, Drug form: MISC, Route: MISC, ONCE, 02/05/16 15:30:00 CDT, Stop date: 02/05/16 15:30:00 CDT [facility] potassium phosphate + Sodium Chloride 0.9% IV 250 mL 02-04 12:51:00 No Notes: (Same as: K Phosphate.) 1 mMol phoshate has 1.47 mEq potassium Infuse over 4 hours [facility] meropenem + Sodium Chloride 0.9% IV 100 mL 2016-02-05 06:00:00 No Notes: Same as Merrem MEDICATION WASTE Product Size: 500 mg Product Wasted: ___ mg [facility] Zofran 2016-02-05 02:54:00 No Notes: (Same as: Zofran) MEDICATION WASTE Product Size: 4 mg Product Wasted: ___ mg [facility] metoprolol tartrate 2016-02-05 02:00:00 No Notes: (Same as: Lopressor) [facility] Calcium Gluconate 2016-02-04 23:06:00 No Notes: WASTE: F/P - Sink; E - Municipal Trash Bin [facility] potassium chloride 2016-02-04 23:06:00 No Notes: Infuse at a rate of 10 mEq/hr. (Same as: KCL) [facility] potassium phosphate + Sodium Chloride 0.9% IV 250 mL 02-03 23:06:00 No Notes: (Same as: K Phosphate.) 1 mMol phoshate has 1.47 mEq potassium Infuse over 4 hours [facility] sodium phosphate + Sodium Chloride 0.9% IV 250 mL 2016-02-04 23:06:00 No 30 mmol, 10 mL, Rout e: IVPB, PRN, Dosing Weight 95, kg, PRN Abnormal Lab Result, For NON-ICU Patients Only., Start date: 02/04/16 18:06:00 CDT, Duration: 30 day, Stop date: 03/05/16 18:05:00 CDT [facility] potassium phosphate-sodium phosphate 250 mg-278 mg-164 mg or al powder 2016-02-04 23:06:00 No Notes: (Same as: Neutra-Phos) Each 1.25 gm pkt has 250mg phosphorous. Mix w/2.5oz water and stir. Jimenez Palencia Magnesium Oxide 2016-02-04 23:06:00 No Notes: (Same as: Mag-Ox 400) Magnesium oxide 190mt=071ss elemental magnesium Dose=____mg magnesium oxide (___mg elemental magnesium) Jimenez montero Magnesium Sulfate 2016-02-04 23:06:00 No Notes: WASTE: F/P - Sink; E - Municipal Trash Bin Jimenez Palencia gentamicin + Sodium Chloride 0.9% IV 100 mL 2016-02-04 21:00:00 No Notes: TIME CRITICAL MEDICATION (Same as Garamycin) Jimenez Palencia Gentamicin Sulfate ([facility]) 2016-02-04 20:00:00 No 1 ea, Route: MISC, Dosing Weight 95, kg, ONCALL, Start date: 02/04/16 15:00:00 CDT, Duration: 1 doses or times, Pharmacy to dose Chance Palencia Labetalol 2016-02-04 19:49:00 No Notes: (Same as: Normodyne, Trandate) Push over 2 minutes Give bolus over 2-3 minutes. [facility] Doxazosin 2016-02-04 14:00:00 No Notes: (Sa me as: Cardura) [facility] potassium phosphate + Sodium Chloride 0.9% IV 250 mL 02-03 12:36:00 No Notes: (Same as: K Phosphate.) 1 mMol phoshate has 1.47 mEq potassium Infuse over 4 hours [facility] sodium phosphate 2016-02-04 12:36:00 No 15 mmol, Route: IVPB, PRN, Dosing Weight 95, kg, PRN Abnormal Lab Result, Start date: 02/04/16 7:36:00 CDT, Duration: 30 day, Stop date: 03/05/16 7:35:00 CDT [facility] sodium phosphate + Sodium Chloride 0.9% IV 250 mL 2016-02-04 12:20:00 No 15 mmol, 5 mL, Route : IVPB, PRN, Dosing Weight 95, kg, PRN Abnormal Lab Result, Start date: 02/04/16 7:20:00 CDT, Duration: 30 day, Stop date: 03/05/16 7:19:00 CDT [facility] potassium phosphate + Sodium Chloride 0.9% IV 250 mL 02-02 16:39:00 No Notes: (Same as: K Phosphate.) 1 mMol phoshate has 1.47 mEq potassium Infuse over 4 hours [facility] tramadol hydrochloride 50 MG Oral Tablet 2016-02-03 02:04:00 Yes 50 mg = 1 tab, PO, Q8H, PRN Pain Score 6-10, 0 Refill(s) [facility] Metformin 2016-02-03 02:04:00 No 1,000 mg, PO, TID, 0 Refill(s) [facility] Amlodipine 2016-02-03 02:04:00 Yes 1 0 mg, PO, Daily, 0 Refill(s) [facility] acyclovir 200 mg oral capsule 2016-02-03 02:04:00 Yes 200 mg = 1 cap, PO, Daily, PRN infection, 0 Refill(s) [facility] benzonatate 100 mg oral capsule 2016-02-03 02:04:00 Yes 100 mg = 1 cap, PO, TID, 0 Refill(s) [facility] nitrofurantoin 2016-02-03 02:04:00 No 100 mg, PO, BID, # 14 cap, 0 Refill(s) [facility] meclizine 25 mg oral tablet 2016-02-03 02:04:00 Yes 25 mg = 1 tab, PO, TID, PRN Nausea, 0 Refill(s) Chance Palencia doxazosin 1 mg oral tablet 2016-02-03 02:04:00 Yes 1 mg = 1 tab, PO, Daily, every evening, 0 Refill(s) Rowdy bustamante [place] Hydrochlorothiazide 2016-02-03 02:04:00 No 25 mg, PO, Daily, 0 Refill(s) Jimenez [place] lisinopril 40 mg oral tablet 2016-02-03 02:04:00 No 40 mg = 1 tab, PO, Daily, 0 Refill(s) Jimenez Palencia testosterone 200 mg/mL intramuscular solution 2016-02-03 02:04:0 0 No 200 mg = 1 ml, IM, q2wk, 0 Refill(s) [facility] Ibuprofen 2016-02-03 02:04:00 No 200 mg, 0 Refill(s) [facility] heparin 2016-02-03 02:00:00 No Notes: porci ne heparin [facility] Zosyn 2016-02-02 23:00:00 No Notes: (Same as: Zosyn) Dosing based on Piperacillin component MEDICATION WASTE Product Size: 3375 mg Product Wasted: 0 mg [facility] Acetaminophen 325 MG / Hydrocodone Bitartrate 5 MG Oral Tabl et [Staples 5/325] 2016-02-02 22:50:00 No Notes: (Same as: Staples 325/5) Do not exceed 4gm/day of acetaminophen. [facility] Amlodipine 2016-02-02 22:00:00 No Notes: (S mervat as: Norvasc) [facility] Saline Flush 0.9% 2016-02-02 21:28:00 No Notes: (Same as: BD Posiflush) [facility] Sodium Chloride 0.0769 MEQ/ML Injectable Solution 2016-02-02 21:28:00 No 1,000 mL, Rate: 75 m l/hr, Infuse over: 13.3 hr, Route: IV, Dosing Weight 95 kg, Total Volume: 1,000, Start date: 02/02/16 16:28:00 CDT, Stop date: 03/03/16 16:27:00 CDT [facility] Acetaminophen 2016-02-02 21:28:00 No Notes: Do not exceed 4 gm/day. (Same as: Tylenol) [facility] Docusate 2016-02-02 21:28:00 No Notes: (Same as: Colace) (Do Not Crush) [facility] Ondansetron 2016-02-02 21:28:00 No Notes: (Same as: Zofran) MEDICATION WASTE Product Size: 4 mg Product Wasted: 0 mg Jimenez Palencia Sodium Chloride 0.154 MEQ/ML Injectable Solution 2016-02-02 19:0 6:00 No 1,000 mL, 1,000 ml/hr, Infus e Over: 1 hr, Route: IV, 1,000, Drug form: INJ, ONCE, Priority: STAT, Dosing Weight 95 kg, Start date: 02/02/16 14:06:00 CDT, Duration: 1 doses or times, Stop date: 02/02/16 14:06:00 CDT Jimenez Palencia Tylenol 2016-02-02 18:00:00 No Notes: Do not exceed 4 gm/day. (Same as: Tylenol) Jimenez Palencia Sodium Chloride 0.154 MEQ/ML Injectable Solution 2016-02-02 18:0 0:00 No 1,000 mL, 1,000 ml/hr, Infus e Over: 1 hr, Route: IV, 1,000, Drug form: INJ, ONCE, Priority: STAT, Dosing Weight 95 kg, Start date: 02/02/16 13:00:00 CDT, Duration: 1 doses or times, Stop date: 02/02/16 13:00:00 CDT [facility] Rocephin 2016-02-02 17:59:00 No Notes: (Same As: Rocephin). Use with 100 mL NS and infuse over 30 min MEDICATION WASTE Product Size: 1000 mg Product Wasted: 0 mg Jimenez mohan Acetaminophen/Codeine Phosphate (Tylenol # 3*) 1 Ea TA B Acetaminophen/Codeine Phosphate (Tylenol # 3*) 1 Ea TAB Yes 1 Every 6 Hours as needed for Pain [facility] Atenolol Atenolol Yes 25 Twice A Day [facility] Cholecalciferol (Vitamin D3) (Vitamin D3) 1,000 Unit C APSULE Cholecalciferol (Vitamin D3) (Vitamin D3) 1,000 Unit CAPSULE Yes 1000 Daily [facility] Cyanocobalamin (Vitamin B-12) 1,000 Mcg TAB Cyanocobal brar (Vitamin B-12) 1,000 Mcg TAB Yes 1000 Daily [facility] Finasteride Finasteride Yes 5 Bedtime [facility] Folic Acid Folic Acid Yes 800 Daily [facility] Furosemide (Lasix) 20 Mg TABLET Furosemide (Lasix) 20 Mg TABLET Yes 20 Twice A Day [facility] Glipizide Glipizide Yes 5 Twice A Day [facility] Lisinopril Lisinopril Yes 40 Daily [facility] Pantoprazole Sodium (Protonix) 40 Mg TABLET. Pantopr azole Sodium (Protonix) 40 Mg TABLET. Yes 40 Daily [facility] Pyridoxine Hcl (Vitamin B-6) 50 Mg TABLET Pyridoxine H cl (Vitamin B-6) 50 Mg TABLET Yes 50 Daily [facility] Tamsulosin Hcl Tamsulosin Hcl Yes .4 Bedtime [facility] Levocetirizine Dihydrochloride Levocetirizine Dihydrochloride 2019-09-27 00:00:00 No 5 Daily as needed for Allergy [facility] Fluticasone Propionate Fluticasone Propionate 2019-09-23 00:00:00 No 1 Twice A Day as needed for Allergy [facility] Potassium Chloride Potassium Chloride 2019-09-23 00:00:00 No 10 Bedtime [facility] Aspirin (Ecotrin) 81 Mg TABLET. Aspirin (Ecotrin) 81 Mg TABLET . 2019-09-22 00:00:00 No 81 Daily [facility] Ferrous Sulfate Ferrous Sulfate 2019-09-22 00:00:00 No 325 Daily [facility] Cholecalciferol (Vitamin D3) (Vitamin D) 400 Unit CAPS ULE Cholecalciferol (Vitamin D3) (Vitamin D) 400 Unit CAPSULE 2019-07-03 00:00:00 No 1000 Daily [facility] Furosemide Furosemide 2019-07-03 00:00:00 No Alyssa ly [facility] Hydroxyzine Hcl Hydroxyzine Hcl 2019-07-03 00:00:00 No 25 Three Times A Day [facility] Amoxicillin/Potassium Clav (Augmentin 875-125 Tablet) 1 Each TABLET Amoxicillin/Potassium Clav (Augmentin 875-125 Tablet) 1 Each TABLET 2019-06-20 00:00:00 No 1 Every 12 Hours as needed for In fection [facility] Furosemide (Lasix) 40 Mg TABLET Furosemide (Lasix) 40 Mg TABLET 2019-06-20 00:00:00 No 20 Twice A Day [facility] Ibuprofen (Advil) 200 Mg CAPSULE Ibuprofen (Advil) 200 Mg CAPSUL E 2019-06-20 00:00:00 No 200 Every 6 Hours as needed for Mild Pain (1-3) Or Fever>100.8 [facility] Potassium Chloride Potassium Chloride 2019-06-20 00:00:00 No 20 Twice A Day [facility] Acyclovir Acyclovir 2019-06-14 00:00:00 No 200 Daily [facility] Amlodipine Besylate Amlodipine Besylate 2019-06-14 00:00:00 No 10 Daily [facility] Lovastatin Lovastatin 2019-06-14 00:00:00 No 10 Bed time [facility] Meclizine Hcl Meclizine Hcl 2019-06-14 00:00:00 No 25 Daily [facility] Furosemide (Lasix) 40 Mg TABLET Furosemide (Lasix) 40 Mg TABLET 2019-01-31 00:00:00 No 40 12 Pm [facility] Clonidine Hcl Clonidine Hcl 2018-12-14 00:00:00 No .2 Twice A Day [facility] Hydrochlorothiazide (Esidrix*) 25 Mg TAB Hydrochloroth iazide (Esidrix*) 25 Mg TAB 2018-12-14 00:00:00 No 25 Daily [facility] Furosemide Furosemide 2018-12-13 00:00:00 No 20 Alyssa ly [facility] Losartan Potassium Losartan Potassium 2018-12-13 00:00:00 No 25 Daily [facility] Pantoprazole Sodium (Protonix) 40 Mg TABLET. Pantopr azole Sodium (Protonix) 40 Mg TABLET. 2018-12-13 00:00:00 No 40 Daily [facility] Vital Signs Vital Name Observation Time Observation Value Comments Source Body Temperature 2019-10-27 18:41:00 98.5 [degF] [facility] Respitory Rate 2016-11-22 16:32:00 [facility] [place] Heart Rate 2016-11-22 16:32:00 [facility] [place] Systolic (mm Hg) 2016-11-22 16:32:00 Jhon rial [place] Diastolic (mm Hg) 2016-11-22 16:32:00 [facility] [place] Temperature Oral (F) 2016-11-22 16:32:00 98.7 F [facility] [place] Systolic (mm Hg) 2016-11-22 12:15:00 Jhon rial [place] Diastolic (mm Hg) 2016-11-22 12:15:00 [facility] [place] Heart Rate 2016-11-22 12:15:00 [facility] [place] Respitory Rate 2016-11-22 12:15:00 [facility] [place] Temperature Oral (F) 2016-11-22 12:15:00 98.8 F [facility] [place] Temperature Oral (F) 2016-11-22 09:00:00 98.3 F [facility] [place] Respitory Rate 2016-11-22 09:00:00 [facility] [place] Systolic (mm Hg) 2016-11-22 09:00:00 [facility] [place] Diastolic (mm Hg) 2016-11-22 09:00:00 [facility] [place] Heart Rate 2016-11-22 09:00:00 [facility] Weight 2016-11-19 18:54:00 [facility] [place] BMI Calculated 2016-11-19 18:54:00 [facility] [place] Height 2016-11-19 18:54:00 167.64 cm [facility] Respitory Rate 2016-02-12 17:00:00 [facility] [place] Temperature Oral (F) 2016-02-12 17:00:00 98.3 F [facility] Heart Rate 2016-02-12 17:00:00 [facility] Systolic (mm Hg) 2016-02-12 17:00:00 [facility] [place] Diastolic (mm Hg) 2016-02-12 17:00:00 [facility] [place] Heart Rate 2016-02-12 12:00:00 [facility] [place] Respitory Rate 2016-02-12 12:00:00 Alessandro zendejas [place] Temperature Oral (F) 2016-02-12 12:00:00 97.8 F [facility] [place] Systolic (mm Hg) 2016-02-12 12:00:00 Jhon cordova [place] Diastolic (mm Hg) 2016-02-12 12:00:00 [facility] [place] Systolic (mm Hg) 2016-02-12 05:00:00 [facility] [place] Diastolic (mm Hg) 2016-02-12 05:00:00 [facility] [place] Temperature Oral (F) 2016-02-12 05:00:00 98.4 F [facility] [place] Heart Rate 2016-02-12 05:00:00 [facility] [place] Respitory Rate 2016-02-12 05:00:00 Alessandro zendejas [place] Weight 2016-02-02 16:01:00 [facility] [place] BMI Calculated 2016-02-02 16:01:00 [facility] [place] Height 2016-02-02 16:01:00 170.18 cm [facility] Procedures Procedure Date / Time Performed Performing Clinician Sour e INSPECTION OF LOWER INTESTINAL TRACT, ENDO 2019-09-27 00:00:00 [facility] EXCISION OF DUODENUM, ENDO, DIAGN 2019-09-26 00:00:00 [facility] EXCISION OF STOMACH, PYLORUS, ENDO, DIAGN 2019-09-26 00:00:00 [facility] EXCISION OF LOWER ESOPHAGUS, ENDO, DIAGN 2019-09-26 00:00:00 [facility] TRANSFUSE NONAUT RED BLOOD CELLS IN PERIPH VEIN, PERC 2019-09-23 00:00:00 [facility] TRANSFUSE NONAUT RED BLOOD CELLS IN PERIPH VEIN, PERC 2019-07-04 00:00:00 [facility] EXTRACTION OF ILIAC BONE MARROW, PERC APPROACH, DIAGN 2019-06-18 00:00:00 [facility] TRANSFUSE NONAUT RED BLOOD CELLS IN PERIPH VEIN, PERC 2019-06-18 00:00:[address] [facility] [address] orbit/ear/fossa w/o dye 2019-06-18 00:00:00 [facility] Computed tomography of chest without contrast 2019-06-14 00:00:0 0 AVIS FLORES [facility] CT of abdomen and pelvis without contrast 2019-06-14 00:00:00 [facility] X-ray of chest, single view 2019-06-13 00:00:00 JEREMIAH FLORES [facility] Carpal tunnel release [facility] Cholecystectomy [facility] Rotator cuff repair [facility] Plan of Care Planned Activity Planned Date Details Comments Source Future Scheduled Test 2020-04-12 00:00:00 INFLUENZA VACCINE [code = INFLUENZA VACCINE] [facility] Future Scheduled Test 2000 00:00:00 65+ PNEUMOCOCCAL V ACCINE (1 of 2 - PCV13) [code = 65+ PNEUMOCOCCAL VACCINE (1 of 2 - PCV13)] [facility] Future Scheduled Test 1985 00:00:00 SHINGLES VACCINES (#1) [code = SHINGLES VACCINES (#1)] [facility] Encounters Start Date/Time End Date/Time Encounter Type [facility] Encounter ID Source 2020-04-03 07:05:00 2020-04-03 07:05:00 Departed Emergency Room [facility] [id number] [facility] dical [place] 2019-10-27 17:04:00 2019-10-27 18:30:00 Departed Emergency Room 1 ML PEREZ [facility] [id number] CH I [facility] 2019-09-22 19:07:00 2019-09-27 13:08:00 Discharged Inpatient 1 KIM ORDONEZ [facility] [id number] [facility] 2019-07-03 14:43:00 2019-07-08 12:07:00 Discharged Inpatient 1 JAIRON LAM [facility] [id number] [facility] 2019-06-13 21:55:00 2019-06-20 18:33:00 Discharged Inpatient 1 AVIS FLORES [facility] [id number] [facility] 2019-01-31 19:40:00 2019-02-02 14:42:00 Discharged Inpatient (obs) 1 AVIS FLORES [facility] [id number] [facility] 2018-12-21 08:39:00 2018-12-21 23:59:00 Outpatient Yeny, D avid Demar [facility] M[facility]IP [id number] 2018-12-13 05:25:00 2018-12-15 10:45:00 Discharged Inpatient (obs) 1 MALINA ANGELA [facility] [id number] [facility] 2018-12-07 09:43:00 2018-12-07 23:59:00 Outpatient Yeny, D avid Demar [facility] M[facility] [id number] 2018-01-09 11:05:00 2018-01-09 23:59:00 Outpatient Yeny, D avid Demar [facility] M[facility] [id number] 2018-01-09 11:05:00 2018-01-09 23:59:00 Outpatient Yeny, D avid Demar [facility] M[facility]IP [id number] 2017-12-28 08:43:00 2017-12-28 23:59:00 Outpatient Yeny, D avid Demar MHOIB MHOIB [id number] 2017-12-26 08:10:00 2017-12-26 23:59:00 Outpatient Yeny, D avid Demar [facility] M[facility]IP [id number] 2017-11-29 08:39:00 2017-11-29 23:59:00 Outpatient Yeny, D avid Demar [facility] M[facility]IP [id number] 2016-11-19 12:05:00 2016-11-22 13:52:00 [place]patient [place] [facility] [id number] 2016-06-17 12:38:00 2016-06-17 23:59:00 Outpatient Dillan Singh [facility]IP M[facility]IP [id number] 2016-02-02 10:35:00 2016-02-12 17:20:00 Outpatient Lulú Logan [facility] [id number] Results Test Description Test Time Test Comments Results Result Comments Source SURGICAL SPECIMENS 2020-04-14 19:10:00 RUN DATE: 04/14/20 [facility] *LIVE* PAGE 1 RUN TIME: 1909 Specimen Inquiry RUN USER: INTERFACE PATIENT: [facility] #: [id number] AGE/SX: 85/M ROOM: [facility] RE04/03/20REG DR: Tre Donnelly MD : 35 BED: 1 DIS: 04/11/20 STATUS: DIS IN TLOC: SPEC #: [id number] RECD: 04/11/20 STATUS: SHAY RELuis #: [id number] STEPHANIE: 04/11/[address]: Tre Donnelly MD ENTERED: 04/14/20 SP TYPE: SURG SPEC OTHR DR: Self Referred AbrDionte man MD, Tejinder Singh MD Alnas, Majd MD Issa, Husam Ismail MD Kirkwood, John D DO Mahmood,Michael Jaramillo,Maria Esther Krishna,Cyndi Flores,Oren KRISHNAORDERED: GROSS AND MICRO CODES: [id number] - PLEURAL FLUID COPIES TO: Self Referred Dionte Leonard MD [address] [place] [address] Williams Ramirez MD [address] [place] [address] [address] [place] [address] Sarbjit Vera MD [address] [place] [address] Pedro Luis Rea MD [address] [facility] [address] [place] [address] Alex Martinez DO [address] [place] [address] CONTINUED ON NEXT PAGE RUN DATE: 04/14/20 [facility] *LIVE* PAGE 2 RUN TIME: 1909 Specimen Inquiry RUN USER: INTERFACE ------- -----SPEC #: [id number] PATIENT: ALEX PETERS #[id number] (Continued) COPIES TO: (Continued) Michael Murrieta MD [address] [place], [place] [id number] Tre Donnelly MD [address] [place] [address] Maria Esther Jaramillo MD [address] [place] [address] Cyndi Krishna MD [id number] [place] [id number] Oren Flores MD [address] [facility] [address] [place] [address] PROCEDURES: GROSS AND MICRO (Incomplete) TISSUES: 1. PLEURAL FLUID, NOS - Pleural fluid, right, cytology FINAL DIAGNOSIS Pleural cavity, thoracentesis (cytospin smears and cell block section): No cells are diagnostic of malignancy. GROSS AND MICROSCOPIC GROSS DESCRIPTION: Received are 5 cc of yellow right pleural fluid for cytologic evaluation. MICROSCOPIC EXAMINATION: The cytology preparations (cytospins and cell block section) reveal proteinaceous fluid, a few inflammatory cells, and reactive mesothelial cells. CONTINUED ON NEXT PAGE RUN DATE: 04/14/20 [facility] *LIVE* PAGE 3 RUN TIME: 1909 Specimen Inquiry RUN USER: INTERFACE SPEC #: [id number] PATIENT: ALEX PETERS #[id number] (Continued) POST-OP DIAGNOSIS None given PRE-OP DIAGNOSIS None given- Signed SIGNATURE ON FILE Melissa Abel MD 04/14/200 END OF REPORT BASIC METABOLIC PANEL 2020-04-14 14:15:00 Test Item SODIUM (test code = NA) 138 mEq/L 134-147 N POTASSIUM (test code = K) 4.5 mEq/L 3.4-5.0 N CHLORIDE (test code = CL) 107 mEq/L 100-108 N CARBON DIOXIDE (test code = CO2) 24 mEq/L 21-33 ANION GAP (test code = GAP) 12 0-20 N GLUCOSE (test code = GLU) 71 mg/dL 70-110 BLOOD UREA NITROGEN (test code = BUN) 30 mg/dL 7-18 H GLOMERULAR FILTRATION RATE (test code = GFR) 44.5 70-80 L Units of measure = ml/min/1.73 m2 CREATININE (test code = CREAT) 1.5 mg/dL 0.6-1.3 H CALCIUM (test code = CA) 9.3 mg/dL 8.0-10.5 N PROTEIN ELECTROPHORESIS [id number] 14:15:00* Test Item Value Reference Range Interpretation Comments TOTAL PROTEIN (test code = PROTE) 8.0 g/dL 6.0-8.5 ALBUMIN (test code = ALBE) 3.8 g/dL 2.9-4.4 PZMUL-6-FSQHRRFF (test code = A1G) 0.5 g/dL 0.0-0.4 A WLVNC-3-JHSNRMUR (test code = A2G) 1.1 g/dL 0.4-1.0 A BETA GLOBULIN (test code = BG) 1.1 g/dL 0.7-1.3 GAMMA GLOBULIN (test code = GG) 1.6 g/dL 0.4-1.8 M-SPIKE,SERUM (test code = MSPIKES) Not Observed g/dL Not Observed GLOBULIN ELECT (test code = GLOBE) 4.2 g/dL 2.2-3.9 H ALBUMIN/GLOBULIN RATIO (test code = AGE) 0.9 0.7-1.7 PROT.ELECTROPH.INTERPRETATION (test code = ELEINT) () The SPE pattern appears essentially unremarkable. Evidenceof monoclonal protein is not apparent.Performed At: [facility] [address] [id number] Kyle L MD Ph:[phone] At: [facility] [address] [place], [place] [id number] CN MD Ph:[phone] [id number] 14:15:00* Test Item Value Reference Range Interpretation Comments PHOSPHOROUS (test code = PHOS) 2.8 MG/DL 2.5-4.9 N LACTIC DEHYDROGENASE(LDH)2020-04-14 14:15:00* Test Item Value Reference Range Interpretation Comments LACTIC DEHYDROGENASE(LDH) (test code = LDH) 760 IUnits/L 87-241 H [id number] 14:15:00* Test Item Value Reference Range Interpretation Comments MAGNESIUM (test code = MAG) 2.30 mg/dL 1.8-2.4 N TOTAL IRON BINDING [id number] 14:15:00* Test Item Value Reference Range Interpretation Comments SERUM IRON (test code = IRON) 76 mcg/dL 35-150 N TOTAL IRON BINDING CAPACITY (test code = TIBC) 195 mcg/dL 260-445 L UIBC (test code = UIBC) 119 mcg/dL IRON SATURATION (test code = FESAT) 39.0 % 14-34 H VITAMIN [id number] 14:15:00* Test Item Value Reference Range Interpretation Comments VITAMIN B12 (test code = VITB12) 1389 pg/mL 193-986 H FOLIC [id number] 14:15:00* Test Item Value Reference Range Interpretation Comments FOLIC ACID (test code = FOL) 42.8 ng/mL 3.1-17.5 H LEUK/LYMPHOMA [id number] 14:15:00* Test Item Value Reference Range Interpretation Comments LEUK/LYMPHOMA PANEL (test code = LEULYM) Flow Cytometry Analysis Specimen Type: Peripheral Blood Diagnosis:1. MYELOID HYPOPLASIA DETECTED2. CIRCULATING BLASTS OR ABNORMAL B CELL OR T CELLPOPULATIONS ARE NOT IDENTIFIED (SEE COMMENT) Comments:No evidence of acute leukemia or non-Hodgkin lymphoma isdetected in this analysis. Flow cytometry analysis shows a decrease in myeloid elementsin the peripheral blood. A relative lymphocytosis, includinga relative increase in immunophenotypically unremarkable T-cells, NK cells and T-cell LGLs, is also noted. No significant evidence of a myeloid stem cell neoplasm is seen. However, a low-grade myeloid stem cell neoplasm may not show antigenic abnormalities on myeloid cells andcannot be entirely excluded by flow cytometric evaluation.The possibility of viral, autoimmune, or congenital causesof myeloid hypoplasia/ marrow failure should be considered in this patient. If there is persistent clinical concern for an underlying myeloid stem cell neoplasm, then bone marrow evaluation and/or FISH for MDS studies should be considered. Correlation of these findings with the cytology of a fresh peripheral blood smear and other clinical and cytogeneticfindings is recommended for a full interpretation. Flow Differential (%) and Population Analysis: Lymphocytes: 56.9%T-cells (77% of lymphoid cells) show a CD4/CD8 ratio ofabout 1.8 without overt phenotypic abnormality.NK-cells (16% of lymphoid cells) are unremarkable. MatureB-cells (4% of lymphoid cells) are polyclonal(kappa:lambda 3.0). Monocytes: 2.6%Monocytes co-express CD14 and CD64 without phenotypicabnormalities. Granulocytes: 20.3%Granulocytes are phenotypically mature and without aberrantantigen expression. CD45 Dim: 2.0%CD34+ events (0.9% of total cells) are non-specific. Markers Performed:CD2, CD3, CD4, CD5, CD7, CD8, CD10, CD11c, CD13, CD14, CD16, CD19, CD20, CD23, CD33, CD34, CD38, CD45, CD56, CD64, CD117,HLA-DR, Rupert, Lambda (24 Markers) Electronic Sharonda Gonsales M.D., Pathologist [id number] 14:15:00* Test Item Value Reference Range Interpretation Comments FERRITIN (test code = JACKIE) 1421.4 ng/mL 23.9-336.2 H FLUID [id number] 10:08:00* Test Item Value Reference Range Interpretation Comments FLUID PH (test code = PHFL) 8.0 Not Estab. The reference interval(s) and other method performance specificationshave not been established for this body fluid. The test result must beintegrated into the clinical context for interpretation.Performed At: [address] [id number] Sanjai MD Ph:[phone] COMMENTS: PLEURAL FLUID PHFLUID [id number] 10:08:00* Test Item Value Reference Range Interpretation Comments FLUID GLUCOSE (test code = GLUFL) 105 MG/DL () Reference intervals and other method performancespecifications have not been established for this test. Thetest result should be integrated into the clinical contextfor interpretation. COMMENTS: PLEURAL FLUID PHFLUID [id number] 10:08:00* Test Item Value Reference Range Interpretation Comments FLUID PROTEIN (test code = PROTFL) 4.1 G/DL () COMMENTS: PLEURAL FLUID PHFLUID [id number] 10:08:00* Test Item Value Reference Range Interpretation Comments FLUID LDH (test code = LDHFL) 260 UNITS/L 50-1500 Reference intervals and other method performancespecifications have not been established for this test. Thetest result should be integrated into the clinical contextfor interpretation. COMMENTS: PLEURAL FLUID [id number] 16:44:00* Test Item Value Reference Range Interpretation Comments GLUBED (test code = GLUBED) 104 MG/DL 70-110 N Performed by certified gluer machine setup operator at [facility] [id number] 12:06:00* Test Item Value Reference Range Interpretation Comments GLUBED (test code = GLUBED) 91 MG/DL 70-110 N Performed by certified gluer machine setup operator at [facility] CBC W/AUTO [id number] 10:29:00* Test Item Value Reference Range Interpretation Comments WHITE BLOOD CELL (test code = WBC) 0.84 x10 3/uL 4.5-11.0 L RED BLOOD CELL (test code = RBC) 2.92 x10 6/uL 4.00-5.60 L HEMOGLOBIN (test code = HGB) 8.4 g/dL 12.5-16.9 L HEMATOCRIT (test code = HCT) 26.6 % 37.5-50.7 L MEAN CELL VOLUME (test code = MCV) 91.1 fL 81.0-99.0 N MEAN CELL HGB (test code = MCH) 28.8 pg 27.0-33.0 N MEAN CELL HGB CONCETRATION (test code = MCHC) 31.6 g/dL 33.0-37. 0 L RED CELL DISTRIBUTION WIDTH CV (test code = RDW) 20.2 % 11.5- 14.5 H RED CELL DISTRIBUTION WIDTH SD (test code = RDW-SD) 64.7 fL 37 .0-54.0 H PLATELET COUNT (test code = PLT) 264 x10 3/uL 150-400 N MEAN PLATELET VOLUME (test code = MPV) 11.8 fL 7.0-9.0 H NEUTROPHIL % (test code = NT%) 28.5 % 56.0-77.0 L IMMATURE GRANULOCYTE % (test code = IG%) 1.2 % 0.0-2.0 N LYMPHOCYTE % (test code = LY%) 66.7 % 14.0-32.0 H MONOCYTE % (test code = MO%) 2.4 % 4.8-9.0 L EOSINOPHIL % (test code = EO%) 1.2 % 0.3-3.7 N BASOPHIL % (test code = BA%) 0.0 % 0.0-2.0 N NUCLEATED RBC % (test code = NRBC%) 0.0 % 0-0 N NEUTROPHIL # (test code = NT#) 0.24 x10 3/uL 2.0-7.6 L IMMATURE GRANULOCYTE # (test code = IG#) 0.01 x10 3/uL 0.00-0.03 N LYMPHOCYTE # (test code = LY#) 0.56 x10 3/uL 1.0-3.8 L MONOCYTE # (test code = MO#) 0.02 x10 3/uL 0.1-0.8 L EOSINOPHIL # (test code = EO#) 0.01 x10 3/uL 0.0-0.2 N BASOPHIL # (test code = BA#) 0.00 x10 3/uL 0.0-0.2 N NUCLEATED RBC # (test code = NRBC#) 0.00 x10 3/uL 0.0-0.1 N MANUAL DIFF REQUIRED (test code = MDIFF) NO SLIDE REVIEWED, CONSISTENT WITH AUTO DIFF. [id number] 09:44:00* Test Item Value Reference Range Interpretation Comments GLUBED (test code = GLUBED) 118 MG/DL 70-110 H Performed by certified gluer machine setup operator at [facility] - XR CHEST 1 [id number] 08:31:00 FAX: Sarbjit Jimenez MD [phone] Hugo: St: ADM FAX: Alex Chan DO [phone] FAX: Tre Villaseñor I [phone] Name: ALEX PETERS [facility] : 1935 Age/S: 85/M [address] [place], [place] [address] Unit #: [id number] Loc: G.6[address] [place] [address] Phys: Sarbjit Vera MD Acct: [id number] Dis Date: Status: ADM IN ONE #: [phone] Exam Date: 04/11/2020 0552 FAX #: [phone] Reason: pneumonia EXAMS: CPT CODE: [id number] XR CHEST 1 V 69811 PROCEDURE: MARCIA ST SINGLE VIEW INDICATION: pneumonia COMPARISON: Nehemias montano, most recent 04/10/2020 FINDINGS: TUBES AND L DIAMOND: EKG leads overlie the chest. CHEST: AP portable chest obtain ed with patient semiupright, slightly rotated to the right. Indistinct opa cities right mid and lower lung zone are redemonstrated. The right hemidia phragm remains partially visible. Costophrenic angle is indistinct. There is no pneumothorax. Skin fold overlies the left hemithorax. Subsegmental a telectasis left base. Enlarged cardiac silhouette grossly stable allowing for rotation. No acute skeletal abnormality. IMPRESSION: 1. Rotated exam with grossly stable right pleural-parenchymal disease at one-day interval. SL: [id number] at 0831 Reported and signed by: Martin Emanuel M.D. CC: Sarbjit Vera MD; Alex Martinez DO; Tre Wang MD Technologist: Selene Light, RT(R)(M); Renetta Johnson RT(R) Trnsaint joseph london Date/Time/By: 04/11/2020 (0831) : By: VazquezL Orig Print D/T: S: 04/11/2020 (0834) PAGE 1 Signed Report CBC W/AUTO [id number] 07:37:00* Test Item Value Reference Range Interpretation Comments WHITE BLOOD CELL (test code = WBC) 0.84 x10 3/uL 4.5-11.0 L RED BLOOD CELL (test code = RBC) 2.92 x10 6/uL 4.00-5.60 L HEMOGLOBIN (test code = HGB) 8.4 g/dL 12.5-16.9 L HEMATOCRIT (test code = HCT) 26.6 % 37.5-50.7 L MEAN CELL VOLUME (test code = MCV) 91.1 fL 81.0-99.0 N MEAN CELL HGB (test code = MCH) 28.8 pg 27.0-33.0 N MEAN CELL HGB CONCETRATION (test code = MCHC) 31.6 g/dL 33.0-37. 0 L RED CELL DISTRIBUTION WIDTH CV (test code = RDW) 20.2 % 11.5- 14.5 H RED CELL DISTRIBUTION WIDTH SD (test code = RDW-SD) 64.7 fL 37 .0-54.0 H PLATELET COUNT (test code = PLT) 264 x10 3/uL 150-400 N MEAN PLATELET VOLUME (test code = MPV) 11.8 fL 7.0-9.0 H NEUTROPHIL % (test code = NT%) % 56.0-77.0 LYMPHOCYTE % (test code = LY%) % 14.0-32.0 NEUTROPHIL # (test code = NT#) x10 3/uL 2.0-7.6 LYMPHOCYTE # (test code = LY#) x10 3/uL 1.0-3.8 MANUAL DIFF REQUIRED (test code = MDIFF) [id number] 06:53:00* Test Item Value Reference Range Interpretation Comments GLUBED (test code = GLUBED) 123 MG/DL 70-110 H Performed by certified gluer machine setup operator at [facility] FLUID [id number] 05:52:00* Test Item Value Reference Range Interpretation Comments FLUID GLUCOSE (test code = GLUFL) 105 MG/DL Reference intervals and other method performancespecifications have not been established for this test. Thetest result should be integrated into the clinical contextfor interpretation. COMMENTS: PLEURAL FLUID PHFLUID [id number] 05:52:00* Test Item Value Reference Range Interpretation Comments FLUID PROTEIN (test code = PROTFL) 4.1 G/DL COMMENTS: PLEURAL FLUID PHFLUID [id number] 05:52:00* Test Item Value Reference Range Interpretation Comments FLUID LDH (test code = LDHFL) 260 UNITS/L 50-1500 N Reference intervals and other method performancespecifications have not been established for this test. Thetest result should be integrated into the clinical contextfor interpretation. COMMENTS: PLEURAL FLUID PHFLUID [id number] 05:52:00* Test Item Value Reference Range Interpretation Comments FLUID PH (test code = PHFL) COMMENTS: PLEURAL FLUID PHFLUID [id number] 05:52:00* Test Item Value Reference Range Interpretation Comments FLUID GLUCOSE (test code = GLUFL) 105 MG/DL () Reference intervals and other method performancespecifications have not been established for this test. Thetest result should be integrated into the clinical contextfor interpretation. COMMENTS: PLEURAL FLUID PHFLUID [id number] 05:52:00* Test Item Value Reference Range Interpretation Comments FLUID PROTEIN (test code = PROTFL) 4.1 G/DL () COMMENTS: PLEURAL FLUID PHFLUID [id number] 05:52:00* Test Item Value Reference Range Interpretation Comments FLUID LDH (test code = LDHFL) 260 UNITS/L 50-1500 Reference intervals and other method performancespecifications have not been established for this test. Thetest result should be integrated into the clinical contextfor interpretation. COMMENTS: PLEURAL FLUID PHFLUID [id number] 05:51:00* Test Item Value Reference Range Interpretation Comments FLUID GLUCOSE (test code = GLUFL) MG/DL COMMENTS: PLEURAL FLUID PHFLUID [id number] 05:51:00* Test Item Value Reference Range Interpretation Comments FLUID PROTEIN (test code = PROTFL) G/DL COMMENTS: PLEURAL FLUID PHFLUID [id number] 05:51:00* Test Item Value Reference Range Interpretation Comments FLUID LDH (test code = LDHFL) 260 UNITS/L 50-1500 N Reference intervals and other method performancespecifications have not been established for this test. Thetest result should be integrated into the clinical contextfor interpretation. COMMENTS: PLEURAL FLUID PHFLUID [id number] 05:51:00* Test Item Value Reference Range Interpretation Comments FLUID PH (test code = PHFL) COMMENTS: PLEURAL FLUID PHFLUID [id number] 05:51:00* Test Item Value Reference Range Interpretation Comments FLUID GLUCOSE (test code = GLUFL) MG/DL COMMENTS: PLEURAL FLUID PHFLUID [id number] 05:51:00* Test Item Value Reference Range Interpretation Comments FLUID PROTEIN (test code = PROTFL) G/DL COMMENTS: PLEURAL FLUID PHFLUID [id number] 05:51:00* Test Item Value Reference Range Interpretation Comments FLUID LDH (test code = LDHFL) 260 UNITS/L 50-1500 Reference intervals and other method performancespecifications have not been established for this test. Thetest result should be integrated into the clinical contextfor interpretation. COMMENTS: PLEURAL FLUID [id number] 20:35:00* Test Item Value Reference Range Interpretation Comments GLUBED (test code = GLUBED) 121 MG/DL 70-110 H Performed by certified gluer machine setup operator at [facility] - XR CHEST 1 [id number] 17:23:00 FAX: Sarbjit Jimenez MD [phone] Hugo: St: ADM FAX: Alex Chan DO [phone] FAX: Bhumi Tre Donnelly I [phone] Name: ALEX PETERS [facility] : 1935 Age/S: 85/M [address] [place] [address] Unit #: [id number] Loc: G.6605 [place] [address] Phys: Sarbjit Vera MD Acct: [id number] Dis Date: Status: ADM IN ONE #: [phone] Exam Date: 04/10/2020 1705 FAX #: [phone] Reason: Post thoracentesis EXAMS: CPT CODE: [id number] XR CHEST 1 V 85744 Chest, single view dated 04/10/2020. HISTORY: Shortness of breath. Cough. Post thoracentesis. Comparison is made to a prior study dated 04/09/2020 . The right pleural effusion has decreased in size in the interim, compatible with the history of thoracentesis. There is no evidence of a postprocedural right pneumothorax. Atelectasis or infiltrate persists in the right lung base however has shown interval improvement. The heart is enlarged. The cardiomediastinal shadow is stable. With the exception of scarring or atelectasis in the left infrahilar region, the left lung appears clear. The pulmonary vasculature is normal in caliber. No acute left pleural space abnormalities are detected. IMPRESSION: 1. Interval decrease in size of the right pleural fluid collection, compatible with the history of thoracentesis. 2. Persistent but improved atelectasis or infiltrate in the right lung base. 3. C ardiomegaly without radiographic evidence of acute congestive heart fail ure. SL: 131 at 1723 Reported and signed by: Clovis Gonzales M.D. CC: Sarbjit Vera MD; Alex Martinez DO; Tre Wang MD Technol ogist: Earnestine Rico, RT(R)(M) Trnscrd Date/Time/ By: 04/10/2020 (194) : By: Stephanie Orig Print D/T: S: 04/10/2020 (6 604) PAGE 1 Signed Report PLEURAL FLD CELL [id number] 16:33:00* Test Item Value Reference Range Interpretation Comments PLEURAL FLD COLOR (test code = COLPL) YELLOW PLEURAL FLD APPEARANCE (test code = APPPL) CLEAR PLEURAL FLD WBC (test code = WBCPL) 557 cells/uL 0-500 H PLEURAL FLD RBC (test code = RBCPL) < 2000 Cells/uL 0-0 H PLEURAL FLD POLY (test code = POLYPL) 1 % PLEURAL FLD LYMPHOCYTE (test code = LYMPHPL) 64 % PLEURAL FLD MONOCYTE (test code = MONOPL) 20 % PLEURAL FLD MACROPHAGE (test code = MACPL) 15 % PLEURAL FLD MESOTHELIAL (test code = MESPL) MODERATE MESOTHELIAL CELLS SEEN [id number] 16:03:00* Test Item Value Reference Range Interpretation Comments GLUBED (test code = GLUBED) 106 MG/DL 70-110 N Performed by certified gluer machine setup operator at [facility] PLEURAL FLD CELL [id number] 15:00:00* Test Item Value Reference Range Interpretation Comments PLEURAL FLD COLOR (test code = COLPL) PLEURAL FLD APPEARANCE (test code = APPPL) PLEURAL FLD WBC (test code = WBCPL) 557 cells/uL 0-500 H PLEURAL FLD RBC (test code = RBCPL) < 2000 Cells/uL 0-0 H PLEURAL FLD POLY (test code = POLYPL) % [id number] 11:25:00* Test Item Value Reference Range Interpretation Comments GLUBED (test code = GLUBED) 85 MG/DL 70-110 N Performed by certified gluer machine setup operator at [facility] CBC W/AUTO [id number] 10:42:00* Test Item Value Reference Range Interpretation Comments WHITE BLOOD CELL (test code = WBC) 0.70 x10 3/uL 4.5-11.0 L RED BLOOD CELL (test code = RBC) 2.91 x10 6/uL 4.00-5.60 L HEMOGLOBIN (test code = HGB) 8.2 g/dL 12.5-16.9 L HEMATOCRIT (test code = HCT) 26.5 % 37.5-50.7 L MEAN CELL VOLUME (test code = MCV) 91.1 fL 81.0-99.0 N MEAN CELL HGB (test code = MCH) 28.2 pg 27.0-33.0 N MEAN CELL HGB CONCETRATION (test code = MCHC) 30.9 g/dL 33.0-37. 0 L RED CELL DISTRIBUTION WIDTH CV (test code = RDW) 19.7 % 11.5- 14.5 H RED CELL DISTRIBUTION WIDTH SD (test code = RDW-SD) 63.9 fL 37 .0-54.0 H PLATELET COUNT (test code = PLT) 251 x10 3/uL 150-400 N MEAN PLATELET VOLUME (test code = MPV) 11.1 fL 7.0-9.0 H NEUTROPHIL % (test code = NT%) 25.7 % 56.0-77.0 L IMMATURE GRANULOCYTE % (test code = IG%) 0.0 % 0.0-2.0 N LYMPHOCYTE % (test code = LY%) 71.4 % 14.0-32.0 H MONOCYTE % (test code = MO%) 2.9 % 4.8-9.0 L EOSINOPHIL % (test code = EO%) 0.0 % 0.3-3.7 L BASOPHIL % (test code = BA%) 0.0 % 0.0-2.0 N NUCLEATED RBC % (test code = NRBC%) 0.0 % 0-0 N NEUTROPHIL # (test code = NT#) 0.18 x10 3/uL 2.0-7.6 L IMMATURE GRANULOCYTE # (test code = IG#) 0.00 x10 3/uL 0.00-0.03 N LYMPHOCYTE # (test code = LY#) 0.50 x10 3/uL 1.0-3.8 L MONOCYTE # (test code = MO#) 0.02 x10 3/uL 0.1-0.8 L EOSINOPHIL # (test code = EO#) 0.00 x10 3/uL 0.0-0.2 N BASOPHIL # (test code = BA#) 0.00 x10 3/uL 0.0-0.2 N NUCLEATED RBC # (test code = NRBC#) 0.00 x10 3/uL 0.0-0.1 N MANUAL DIFF REQUIRED (test code = MDIFF) NO SLIDE REVIEWED, CONSISTENT WITH AUTO DIFF. CBC W/AUTO [id number] 07:23:00* Test Item Value Reference Range Interpretation Comments WHITE BLOOD CELL (test code = WBC) 0.70 x10 3/uL 4.5-11.0 L RED BLOOD CELL (test code = RBC) 2.91 x10 6/uL 4.00-5.60 L HEMOGLOBIN (test code = HGB) 8.2 g/dL 12.5-16.9 L HEMATOCRIT (test code = HCT) 26.5 % 37.5-50.7 L MEAN CELL VOLUME (test code = MCV) 91.1 fL 81.0-99.0 N MEAN CELL HGB (test code = MCH) 28.2 pg 27.0-33.0 N MEAN CELL HGB CONCETRATION (test code = MCHC) 30.9 g/dL 33.0-37. 0 L RED CELL DISTRIBUTION WIDTH CV (test code = RDW) 19.7 % 11.5- 14.5 H RED CELL DISTRIBUTION WIDTH SD (test code = RDW-SD) 63.9 fL 37 .0-54.0 H PLATELET COUNT (test code = PLT) 251 x10 3/uL 150-400 N MEAN PLATELET VOLUME (test code = MPV) 11.1 fL 7.0-9.0 H NEUTROPHIL % (test code = NT%) % 56.0-77.0 LYMPHOCYTE % (test code = LY%) % 14.0-32.0 NEUTROPHIL # (test code = NT#) x10 3/uL 2.0-7.6 LYMPHOCYTE # (test code = LY#) x10 3/uL 1.0-3.8 MANUAL DIFF REQUIRED (test code = MDIFF) PROTHROMBIN [id number] 06:16:00* Test Item Value Reference Range Interpretation Comments PROTHROMBIN TIME PATIENT (test code = PTP) 13.5 SECONDS 9.3-12.9 H INTERNATIONAL NORMAL RATIO (test code = INR) 1.2 0.8-1.2 N TARGET INR BY INDICATION Indication INR1. Prophylaxis of venous thrombosis 2.0 - 3.0 (orthopedic surgery), Prophylaxis of venous thrombosis (other than high-risk surgery), Treatment of Deep Vein Thrombosis/Pulmonary Embolism, Prevention of systemic embolism - Tissue heart valves, Acute Myocardial Infarction (to prevent systemic embolism), Valvular heart disease, Atrial Fibrillation, Bileaflet mechanical valve in aortic position.2. Mechanical prosthetic valves (high risk), 2.5 - 3.5 Presence of Lupus Anticoagulant or Antiphospholipid Antibodies, Prevention of systemic embolism - Acute Myocardial Infarction (to prevent recurrent infarct). THROMBOPLASTIN TIME [id number] 06:16:00* Test Item Value Reference Range Interpretation Comments THROMBOPLASTIN TIME PARTIAL (test code = PTT) 35.8 Seconds 25.0-39. 5 N Therapeutic Range: 50.4 - 88.3 Seconds Effective 12/26/2018 [id number] 21:11:00* Test Item Value Reference Range Interpretation Comments GLUBED (test code = GLUBED) 128 MG/DL 70-110 H Performed by certified gluer machine setup operator at [facility] [id number] 17:01:00* Test Item Value Reference Range Interpretation Comments GLUBED (test code = GLUBED) 91 MG/DL 70-110 N Performed by certified gluer machine setup operator at [facility] AG ASPER [id number] 14:11:00* Test Item Value Reference Range Interpretation Comments AG ASPER GALACTOMANNAN (test code = ASPGAG) 0.06 Index 0.00-0.49 Performed At: [address] [id number] Sanjai MD Ph:[phone] CBC W/AUTO [id number] 13:35:00* Test Item Value Reference Range Interpretation Comments WHITE BLOOD CELL (test code = WBC) 0.71 x10 3/uL 4.5-11.0 L RED BLOOD CELL (test code = RBC) 2.87 x10 6/uL 4.00-5.60 L HEMOGLOBIN (test code = HGB) 8.3 g/dL 12.5-16.9 L HEMATOCRIT (test code = HCT) 26.7 % 37.5-50.7 L MEAN CELL VOLUME (test code = MCV) 93.0 fL 81.0-99.0 N MEAN CELL HGB (test code = MCH) 28.9 pg 27.0-33.0 N MEAN CELL HGB CONCETRATION (test code = MCHC) 31.1 g/dL 33.0-37. 0 L RED CELL DISTRIBUTION WIDTH CV (test code = RDW) 19.8 % 11.5- 14.5 H RED CELL DISTRIBUTION WIDTH SD (test code = RDW-SD) 65.3 fL 37 .0-54.0 H PLATELET COUNT (test code = PLT) 283 x10 3/uL 150-400 N MEAN PLATELET VOLUME (test code = MPV) 11.4 fL 7.0-9.0 H NEUTROPHIL % (test code = NT%) 28.2 % 56.0-77.0 L IMMATURE GRANULOCYTE % (test code = IG%) 0.0 % 0.0-2.0 N LYMPHOCYTE % (test code = LY%) 67.6 % 14.0-32.0 H MONOCYTE % (test code = MO%) 2.8 % 4.8-9.0 L EOSINOPHIL % (test code = EO%) 1.4 % 0.3-3.7 N BASOPHIL % (test code = BA%) 0.0 % 0.0-2.0 N NUCLEATED RBC % (test code = NRBC%) 0.0 % 0-0 N NEUTROPHIL # (test code = NT#) 0.20 x10 3/uL 2.0-7.6 L IMMATURE GRANULOCYTE # (test code = IG#) 0.00 x10 3/uL 0.00-0.03 N LYMPHOCYTE # (test code = LY#) 0.48 x10 3/uL 1.0-3.8 L MONOCYTE # (test code = MO#) 0.02 x10 3/uL 0.1-0.8 L EOSINOPHIL # (test code = EO#) 0.01 x10 3/uL 0.0-0.2 N BASOPHIL # (test code = BA#) 0.00 x10 3/uL 0.0-0.2 N NUCLEATED RBC # (test code = NRBC#) 0.00 x10 3/uL 0.0-0.1 N MANUAL DIFF REQUIRED (test code = MDIFF) NO SLIDE REVIEWED, CONSISTENT WITH AUTO DIFF. [id number] 11:54:00* Test Item Value Reference Range Interpretation Comments GLUBED (test code = GLUBED) 101 MG/DL 70-110 N Performed by certified gluer machine setup operator at [facility] [id number] 11:14:00* Test Item Value Reference Range Interpretation Comments GLUBED (test code = GLUBED) 109 MG/DL 70-110 N Performed by certified gluer machine setup operator at [facility] [id number] 08:25:00* Test Item Value Reference Range Interpretation Comments GLUBED (test code = GLUBED) 92 MG/DL 70-110 N Performed by certified gluer machine setup operator at [facility] CBC W/AUTO [id number] 08:23:00* Test Item Value Reference Range Interpretation Comments WHITE BLOOD CELL (test code = WBC) 0.71 x10 3/uL 4.5-11.0 L RED BLOOD CELL (test code = RBC) 2.87 x10 6/uL 4.00-5.60 L HEMOGLOBIN (test code = HGB) 8.3 g/dL 12.5-16.9 L HEMATOCRIT (test code = HCT) 26.7 % 37.5-50.7 L MEAN CELL VOLUME (test code = MCV) 93.0 fL 81.0-99.0 N MEAN CELL HGB (test code = MCH) 28.9 pg 27.0-33.0 N MEAN CELL HGB CONCETRATION (test code = MCHC) 31.1 g/dL 33.0-37. 0 L RED CELL DISTRIBUTION WIDTH CV (test code = RDW) 19.8 % 11.5- 14.5 H RED CELL DISTRIBUTION WIDTH SD (test code = RDW-SD) 65.3 fL 37 .0-54.0 H PLATELET COUNT (test code = PLT) 283 x10 3/uL 150-400 N MEAN PLATELET VOLUME (test code = MPV) 11.4 fL 7.0-9.0 H NEUTROPHIL % (test code = NT%) % 56.0-77.0 LYMPHOCYTE % (test code = LY%) % 14.0-32.0 NEUTROPHIL # (test code = NT#) x10 3/uL 2.0-7.6 LYMPHOCYTE # (test code = LY#) x10 3/uL 1.0-3.8 MANUAL DIFF REQUIRED (test code = MDIFF) VANCOMYCIN [id number] 08:13:00* Test Item Value Reference Range Interpretation Comments VANCOMYCIN TROUGH (test code = VANCT) 13.9 mcg/mL 10.0-20.0 N 10-15 mcg/mL - Cellulitis, Urinary Tract Infection. 15-20 mcg/mL - Bacteremia, Infective Endocarditis, Meningitis, Osteomyelitis, Pneumonia, Severe Skin/Soft- Tissue Infection, Spinal Abscess. BASIC METABOLIC [id number] 08:13:00* Test Item Value Reference Range Interpretation Comments SODIUM (test code = NA) 133 mEq/L 134-147 L POTASSIUM (test code = K) 4.0 mEq/L 3.4-5.0 N CHLORIDE (test code = CL) 105 mEq/L 100-108 N CARBON DIOXIDE (test code = CO2) 21 mEq/L 21-33 N ANION GAP (test code = GAP) 11 0-20 N GLUCOSE (test code = GLU) 82 mg/dL 70-110 N BLOOD UREA NITROGEN (test code = BUN) 15 mg/dL 7-18 N GLOMERULAR FILTRATION RATE (test code = GFR) 80.2 70-80 H Units of measure = ml/min/1.73 m2 CREATININE (test code = CREAT) 0.9 mg/dL 0.6-1.3 N CALCIUM (test code = CA) 9.4 mg/dL 8.0-10.5 N - XR CHEST 1 [id number] 07:54:00 FAX: Sarbjit Jimenez MD [phone] Hugo: St: ADM FAX: Alex Chan DO [phone] FAX: Tre Villaseñor I [phone] Name: ALEX PETERS [facility] [place] : 1935 Age/S: 85/M [address] [place] [address] Blvd Unit #: [id number] Loc: G.6605 [place] [address] Phys: Sarbjit Vera MD Acct: [id number] Dis Date: Status: ADM IN ONE #: [phone] Exam Date: 04/09/2020520 FAX #: [phone] Reason: Pneumonia EXAMS: CPT CODE: [id number] XR CHEST 1 V 92284 Clinical Indic ation: Pneumonia. Comparison: 04/07/2020. Impression: Chest , single view. Persistent right midlung consolidation. Increased size of right pleural effusion, now moderate. Cardiac silhouette is enlarged . Left lung atelectasis is improved. Osseous structures are unchanged. Overall appearance is slightly worsened from prior. SL: [id number] at 0754 Reported and signed by: Sil Broussard M.D. CC: Sarbjit Vera MD; Alex Martinez DO; Tre Wang MD Technologist: Selene Light, RT(R)(M); Renetta Johnson RT(R) [facility] Date/Time/By: 0 04/09/2020 (0754) : By: [email or web address] Orig Print D/T: S: 04/09/2020 (0757) PAGE 1 Signed Report AB MYCOPLASMA [id number] 23:07:00* Test Item Value Reference Range Interpretation Comments AB MYCOPLASMA IGM (test code = MYCOMAB) <770 U/mL 0-769 Negative <770Clinically significant amount of M. pneumoniae antibodynot detected. Low Positive 770 - 950M. pneumoniae specific IgM presumptively detected. Itis recommended that another sample be collected 1-2weeks later to assure reactivity. Positive >950Highly significant amount of M. pneumoniae specificIgM antibody detected.Performed At: [address] [id number] Hull MD Ph:[phone] [id number] 21:04:00* Test Item Value Reference Range Interpretation Comments GLUBED (test code = GLUBED) 140 MG/DL 70-110 H Performed by certified gluer machine setup operator at [facility] [id number] 15:11:00* Test Item Value Reference Range Interpretation Comments HAPTOGLOBIN (test code = HAPT) 260 mg/dL 38-329 Performed At: [facility] [id number] Sanjai MD Ph:[phone] [id number] 12:00:00* Test Item Value Reference Range Interpretation Comments GLUBED (test code = GLUBED) 114 MG/DL 70-110 H Performed by certified gluer machine setup operator at [facility] CBC W/AUTO [id number] 11:47:00* Test Item Value Reference Range Interpretation Comments WHITE BLOOD CELL (test code = WBC) 0.71 x10 3/uL 4.5-11.0 L RED BLOOD CELL (test code = RBC) 2.70 x10 6/uL 4.00-5.60 L HEMOGLOBIN (test code = HGB) 7.7 g/dL 12.5-16.9 L HEMATOCRIT (test code = HCT) 25.1 % 37.5-50.7 L MEAN CELL VOLUME (test code = MCV) 93.0 fL 81.0-99.0 N MEAN CELL HGB (test code = MCH) 28.5 pg 27.0-33.0 N MEAN CELL HGB CONCETRATION (test code = MCHC) 30.7 g/dL 33.0-37. 0 L RED CELL DISTRIBUTION WIDTH CV (test code = RDW) 20.5 % 11.5- 14.5 H RED CELL DISTRIBUTION WIDTH SD (test code = RDW-SD) 66.7 fL 37 .0-54.0 H PLATELET COUNT (test code = PLT) 282 x10 3/uL 150-400 N MEAN PLATELET VOLUME (test code = MPV) 11.2 fL 7.0-9.0 H NEUTROPHIL % (test code = NT%) 33.8 % 56.0-77.0 L IMMATURE GRANULOCYTE % (test code = IG%) 0.0 % 0.0-2.0 N LYMPHOCYTE % (test code = LY%) 62.0 % 14.0-32.0 H MONOCYTE % (test code = MO%) 2.8 % 4.8-9.0 L EOSINOPHIL % (test code = EO%) 1.4 % 0.3-3.7 N BASOPHIL % (test code = BA%) 0.0 % 0.0-2.0 N NUCLEATED RBC % (test code = NRBC%) 0.0 % 0-0 N NEUTROPHIL # (test code = NT#) 0.24 x10 3/uL 2.0-7.6 L IMMATURE GRANULOCYTE # (test code = IG#) 0.00 x10 3/uL 0.00-0.03 N LYMPHOCYTE # (test code = LY#) 0.44 x10 3/uL 1.0-3.8 L MONOCYTE # (test code = MO#) 0.02 x10 3/uL 0.1-0.8 L EOSINOPHIL # (test code = EO#) 0.01 x10 3/uL 0.0-0.2 N BASOPHIL # (test code = BA#) 0.00 x10 3/uL 0.0-0.2 N NUCLEATED RBC # (test code = NRBC#) 0.00 x10 3/uL 0.0-0.1 N MANUAL DIFF REQUIRED (test code = MDIFF) NO SLIDE REVIEWED, CONSISTENT WITH AUTO DIFF. [id number] 08:26:00* Test Item Value Reference Range Interpretation Comments GLUBED (test code = GLUBED) 85 MG/DL 70-110 N Performed by certified gluer machine setup operator at [facility] CBC W/AUTO [id number] 08:12:00* Test Item Value Reference Range Interpretation Comments WHITE BLOOD CELL (test code = WBC) 0.71 x10 3/uL 4.5-11.0 L RED BLOOD CELL (test code = RBC) 2.70 x10 6/uL 4.00-5.60 L HEMOGLOBIN (test code = HGB) 7.7 g/dL 12.5-16.9 L HEMATOCRIT (test code = HCT) 25.1 % 37.5-50.7 L MEAN CELL VOLUME (test code = MCV) 93.0 fL 81.0-99.0 N MEAN CELL HGB (test code = MCH) 28.5 pg 27.0-33.0 N MEAN CELL HGB CONCETRATION (test code = MCHC) 30.7 g/dL 33.0-37. 0 L RED CELL DISTRIBUTION WIDTH CV (test code = RDW) 20.5 % 11.5- 14.5 H RED CELL DISTRIBUTION WIDTH SD (test code = RDW-SD) 66.7 fL 37 .0-54.0 H PLATELET COUNT (test code = PLT) 282 x10 3/uL 150-400 N MEAN PLATELET VOLUME (test code = MPV) 11.2 fL 7.0-9.0 H NEUTROPHIL % (test code = NT%) % 56.0-77.0 LYMPHOCYTE % (test code = LY%) % 14.0-32.0 NEUTROPHIL # (test code = NT#) x10 3/uL 2.0-7.6 LYMPHOCYTE # (test code = LY#) x10 3/uL 1.0-3.8 MANUAL DIFF REQUIRED (test code = MDIFF) BASIC METABOLIC [id number] 08:00:00* Test Item Value Reference Range Interpretation Comments SODIUM (test code = NA) 136 mEq/L 134-147 N POTASSIUM (test code = K) 4.0 mEq/L 3.4-5.0 N CHLORIDE (test code = CL) 108 mEq/L 100-108 N CARBON DIOXIDE (test code = CO2) 20 mEq/L 21-33 L ANION GAP (test code = GAP) 12 0-20 N GLUCOSE (test code = GLU) 86 mg/dL 70-110 N BLOOD UREA NITROGEN (test code = BUN) 16 mg/dL 7-18 N GLOMERULAR FILTRATION RATE (test code = GFR) 80.2 70-80 H Units of measure = ml/min/1.73 m2 CREATININE (test code = CREAT) 0.9 mg/dL 0.6-1.3 N CALCIUM (test code = CA) 9.2 mg/dL 8.0-10.5 N [id number] 20:23:00* Test Item Value Reference Range Interpretation Comments GLUBED (test code = GLUBED) 101 MG/DL 70-110 N Performed by certified gluer machine setup operator at [facility] BASIC METABOLIC [id number] 15:10:00* Test Item Value Reference Range Interpretation Comments SODIUM (test code = NA) 138 mEq/L 134-147 N POTASSIUM (test code = K) 4.5 mEq/L 3.4-5.0 N CHLORIDE (test code = CL) 107 mEq/L 100-108 N CARBON DIOXIDE (test code = CO2) 24 mEq/L 21-33 ANION GAP (test code = GAP) 12 0-20 N GLUCOSE (test code = GLU) 71 mg/dL 70-110 BLOOD UREA NITROGEN (test code = BUN) 30 mg/dL 7-18 H GLOMERULAR FILTRATION RATE (test code = GFR) 44.5 70-80 L Units of measure = ml/min/1.73 m2 CREATININE (test code = CREAT) 1.5 mg/dL 0.6-1.3 H CALCIUM (test code = CA) 9.3 mg/dL 8.0-10.5 N PROTEIN ELECTROPHORESIS [id number] 15:10:00* Test Item Value Reference Range Interpretation Comments TOTAL PROTEIN (test code = PROTE) 8.0 g/dL 6.0-8.5 ALBUMIN (test code = ALBE) 3.8 g/dL 2.9-4.4 VYRKN-4-NPNUXMJI (test code = A1G) 0.5 g/dL 0.0-0.4 A YOWOM-6-PAGQXGRO (test code = A2G) 1.1 g/dL 0.4-1.0 A BETA GLOBULIN (test code = BG) 1.1 g/dL 0.7-1.3 GAMMA GLOBULIN (test code = GG) 1.6 g/dL 0.4-1.8 M-SPIKE,SERUM (test code = MSPIKES) Not Observed g/dL Not Observed GLOBULIN ELECT (test code = GLOBE) 4.2 g/dL 2.2-3.9 H ALBUMIN/GLOBULIN RATIO (test code = AGE) 0.9 0.7-1.7 PROT.ELECTROPH.INTERPRETATION (test code = ELEINT) () The SPE pattern appears essentially unremarkable. Evidenceof monoclonal protein is not apparent.Performed At: [facility] [address] [id number] Kyle L MD Ph:[phone] At: DA [facility] [address] [facility] [address] [place], [place] [id number] CN MD Ph:[phone] [id number] 15:10:00* Test Item Value Reference Range Interpretation Comments PHOSPHOROUS (test code = PHOS) 2.8 MG/DL 2.5-4.9 N LACTIC DEHYDROGENASE(LDH)2020-04-07 15:10:00* Test Item Value Reference Range Interpretation Comments LACTIC DEHYDROGENASE(LDH) (test code = LDH) 760 IUnits/L 87-241 H [id number] 15:10:00* Test Item Value Reference Range Interpretation Comments MAGNESIUM (test code = MAG) 2.30 mg/dL 1.8-2.4 N TOTAL IRON BINDING [id number] 15:10:00* Test Item Value Reference Range Interpretation Comments SERUM IRON (test code = IRON) 76 mcg/dL 35-150 N TOTAL IRON BINDING CAPACITY (test code = TIBC) 195 mcg/dL 260-445 L UIBC (test code = UIBC) 119 mcg/dL IRON SATURATION (test code = FESAT) 39.0 % 14-34 H VITAMIN [id number] 15:10:00* Test Item Value Reference Range Interpretation Comments VITAMIN B12 (test code = VITB12) 1389 pg/mL 193-986 H FOLIC [id number] 15:10:00* Test Item Value Reference Range Interpretation Comments FOLIC ACID (test code = FOL) 42.8 ng/mL 3.1-17.5 H LEUK/LYMPHOMA [id number] 15:10:00* Test Item Value Reference Range Interpretation Comments LEUK/LYMPHOMA PANEL (test code = LEULYM) [id number] 15:10:00* Test Item Value Reference Range Interpretation Comments FERRITIN (test code = JACKIE) 1421.4 ng/mL 23.9-336.2 H CBC W/AUTO [id number] 13:46:00* Test Item Value Reference Range Interpretation Comments WHITE BLOOD CELL (test code = WBC) 1.48 x10 3/uL 4.5-11.0 L RED BLOOD CELL (test code = RBC) 2.60 x10 6/uL 4.00-5.60 L HEMOGLOBIN (test code = HGB) 7.4 g/dL 12.5-16.9 L HEMATOCRIT (test code = HCT) 23.8 % 37.5-50.7 L MEAN CELL VOLUME (test code = MCV) 91.5 fL 81.0-99.0 N MEAN CELL HGB (test code = MCH) 28.5 pg 27.0-33.0 N MEAN CELL HGB CONCETRATION (test code = MCHC) 31.1 g/dL 33.0-37. 0 L RED CELL DISTRIBUTION WIDTH CV (test code = RDW) 23.8 % 11.5- 14.5 H RED CELL DISTRIBUTION WIDTH SD (test code = RDW-SD) 76.6 fL 37 .0-54.0 H PLATELET COUNT (test code = PLT) 381 x10 3/uL 150-400 N MEAN PLATELET VOLUME (test code = MPV) 11.6 fL 7.0-9.0 H MANUAL DIFF REQUIRED (test code = MDIFF) YES Previously reported result: NO Edited by: CONNORRE on 04/03/20:68267704/03/20 1759: MAN DIFF NEEDED previously reported as: NO PATHOLOGISTS [id number] 13:46:00* Test Item Value Reference Range Interpretation Comments PATHOLOGISTS FINDINGS (test code = PATH FIND) INTERPRETATION BY PATHOLOGIST: MELISSA ABEL M.D."LEUKOPENIA WITH OCCASIONAL ATYPICAL IMMATURE CELLS." WBC [id number] 13:46:00* Test Item Value Reference Range Interpretation Comments SEGMENTED NEUTROPHILS (test code = SEG) 45.9 % 37-69 N LYMPHOCYTE (test code = LYMPH) 53.2 % 23-55 N REACTIVE LYMPH (test code = RELYMPH) 0.9 % NUCLEATED RED BLOOD CELL (test code = NRBC) 2.8 % POLYCHROMASIA (test code = POLC) 1+ POIKILOCYTOSIS (test code = POIK) 1+ ANISOCYTOSIS (test code = ANISO) 1+ MICROCYTOSIS (test code = MICR) FEW MACROCYTOSIS (test code = MACR) FEW ELLIPTOCYTES (test code = ELL) FEW PLATELET ESTIMATE (test code = PLTEST) Adequate THOUSAND ADEQUATE PLATELET MORPHOLOGY (test code = PLTMORPH) LARGE PLATELETS CBC W/AUTO [id number] 13:44:00* Test Item Value Reference Range Interpretation Comments WHITE BLOOD CELL (test code = WBC) 1.48 x10 3/uL 4.5-11.0 L RED BLOOD CELL (test code = RBC) 2.60 x10 6/uL 4.00-5.60 L HEMOGLOBIN (test code = HGB) 7.4 g/dL 12.5-16.9 L HEMATOCRIT (test code = HCT) 23.8 % 37.5-50.7 L MEAN CELL VOLUME (test code = MCV) 91.5 fL 81.0-99.0 N MEAN CELL HGB (test code = MCH) 28.5 pg 27.0-33.0 N MEAN CELL HGB CONCETRATION (test code = MCHC) 31.1 g/dL 33.0-37. 0 L RED CELL DISTRIBUTION WIDTH CV (test code = RDW) 23.8 % 11.5- 14.5 H RED CELL DISTRIBUTION WIDTH SD (test code = RDW-SD) 76.6 fL 37 .0-54.0 H PLATELET COUNT (test code = PLT) 381 x10 3/uL 150-400 N MEAN PLATELET VOLUME (test code = MPV) 11.6 fL 7.0-9.0 H MANUAL DIFF REQUIRED (test code = MDIFF) YES Previously reported result: NO Edited by: MILA on 04/03/20:43715904/03/20 1759: MAN DIFF NEEDED previously reported as: NO PATHOLOGISTS [id number] 13:44:00* Test Item Value Reference Range Interpretation Comments PATHOLOGISTS FINDINGS (test code = PATH FIND) WBC [id number] 13:44:00* Test Item Value Reference Range Interpretation Comments SEGMENTED NEUTROPHILS (test code = SEG) 45.9 % 37-69 N LYMPHOCYTE (test code = LYMPH) 53.2 % 23-55 N REACTIVE LYMPH (test code = RELYMPH) 0.9 % NUCLEATED RED BLOOD CELL (test code = NRBC) 2.8 % POLYCHROMASIA (test code = POLC) 1+ POIKILOCYTOSIS (test code = POIK) 1+ ANISOCYTOSIS (test code = ANISO) 1+ MICROCYTOSIS (test code = MICR) FEW MACROCYTOSIS (test code = MACR) FEW ELLIPTOCYTES (test code = ELL) FEW PLATELET ESTIMATE (test code = PLTEST) Adequate THOUSAND ADEQUATE PLATELET MORPHOLOGY (test code = PLTMORPH) LARGE PLATELETS [id number] 12:21:00* Test Item Value Reference Range Interpretation Comments GLUBED (test code = GLUBED) 105 MG/DL 70-110 N Performed by certified gluer machine setup operator at [facility] CBC W/AUTO [id number] 10:12:00* Test Item Value Reference Range Interpretation Comments WHITE BLOOD CELL (test code = WBC) 0.83 x10 3/uL 4.5-11.0 L RED BLOOD CELL (test code = RBC) 2.87 x10 6/uL 4.00-5.60 L HEMOGLOBIN (test code = HGB) 8.1 g/dL 12.5-16.9 L HEMATOCRIT (test code = HCT) 27.1 % 37.5-50.7 L MEAN CELL VOLUME (test code = MCV) 94.4 fL 81.0-99.0 N MEAN CELL HGB (test code = MCH) 28.2 pg 27.0-33.0 N MEAN CELL HGB CONCETRATION (test code = MCHC) 29.9 g/dL 33.0-37. 0 L RED CELL DISTRIBUTION WIDTH CV (test code = RDW) 21.1 % 11.5- 14.5 H RED CELL DISTRIBUTION WIDTH SD (test code = RDW-SD) 68.2 fL 37 .0-54.0 H PLATELET COUNT (test code = PLT) 307 x10 3/uL 150-400 N MEAN PLATELET VOLUME (test code = MPV) 11.0 fL 7.0-9.0 H MANUAL DIFF REQUIRED (test code = MDIFF) YES WBC [id number] 10:12:00* Test Item Value Reference Range Interpretation Comments SEGMENTED NEUTROPHILS (test code = SEG) 41.3 % 37-69 N LYMPHOCYTE (test code = LYMPH) 55.8 % 23-55 H REACTIVE LYMPH (test code = RELYMPH) 1.0 % EOSINOPHIL (test code = EOS) 0.9 % 0.0-4.0 N BASOPHIL (test code = BASO) 1.0 % 0.0-2.0 N POLYCHROMASIA (test code = POLC) 2+ HYPOCHROMIA (test code = HYPO) 1+ POIKILOCYTOSIS (test code = POIK) 3+ ANISOCYTOSIS (test code = ANISO) 2+ MICROCYTOSIS (test code = MICR) 1+ OVALOCYTES (test code = OVAL) 2+ SCHISTOCYTES (test code = MARVIN) 2+ PLATELET ESTIMATE (test code = PLTEST) Adequate THOUSAND ADEQUATE PLATELET MORPHOLOGY (test code = PLTMORPH) LARGE PLATELETS CBC W/AUTO [id number] 10:10:00* Test Item Value Reference Range Interpretation Comments WHITE BLOOD CELL (test code = WBC) 0.83 x10 3/uL 4.5-11.0 L RED BLOOD CELL (test code = RBC) 2.87 x10 6/uL 4.00-5.60 L HEMOGLOBIN (test code = HGB) 8.1 g/dL 12.5-16.9 L HEMATOCRIT (test code = HCT) 27.1 % 37.5-50.7 L MEAN CELL VOLUME (test code = MCV) 94.4 fL 81.0-99.0 N MEAN CELL HGB (test code = MCH) 28.2 pg 27.0-33.0 N MEAN CELL HGB CONCETRATION (test code = MCHC) 29.9 g/dL 33.0-37. 0 L RED CELL DISTRIBUTION WIDTH CV (test code = RDW) 21.1 % 11.5- 14.5 H RED CELL DISTRIBUTION WIDTH SD (test code = RDW-SD) 68.2 fL 37 .0-54.0 H PLATELET COUNT (test code = PLT) 307 x10 3/uL 150-400 N MEAN PLATELET VOLUME (test code = MPV) 11.0 fL 7.0-9.0 H MANUAL DIFF REQUIRED (test code = MDIFF) YES WBC [id number] 10:10:00* Test Item Value Reference Range Interpretation Comments ANISOCYTOSIS (test code = ANISO) PLATELET ESTIMATE (test code = PLTEST) THOUSAND ADEQUATE CBC W/AUTO [id number] 10:10:00* Test Item Value Reference Range Interpretation Comments WHITE BLOOD CELL (test code = WBC) 0.83 x10 3/uL 4.5-11.0 L RED BLOOD CELL (test code = RBC) 2.87 x10 6/uL 4.00-5.60 L HEMOGLOBIN (test code = HGB) 8.1 g/dL 12.5-16.9 L HEMATOCRIT (test code = HCT) 27.1 % 37.5-50.7 L MEAN CELL VOLUME (test code = MCV) 94.4 fL 81.0-99.0 N MEAN CELL HGB (test code = MCH) 28.2 pg 27.0-33.0 N MEAN CELL HGB CONCETRATION (test code = MCHC) 29.9 g/dL 33.0-37. 0 L RED CELL DISTRIBUTION WIDTH CV (test code = RDW) 21.1 % 11.5- 14.5 H RED CELL DISTRIBUTION WIDTH SD (test code = RDW-SD) 68.2 fL 37 .0-54.0 H PLATELET COUNT (test code = PLT) 307 x10 3/uL 150-400 N MEAN PLATELET VOLUME (test code = MPV) 11.0 fL 7.0-9.0 H MANUAL DIFF REQUIRED (test code = MDIFF) YES WBC [id number] 10:10:00* Test Item Value Reference Range Interpretation Comments ANISOCYTOSIS (test code = ANISO) PLATELET ESTIMATE (test code = PLTEST) THOUSAND ADEQUATE [id number] 09:16:00* Test Item Value Reference Range Interpretation Comments GLUBED (test code = GLUBED) 67 MG/DL 70-110 L Performed by certified gluer machine setup operator at [facility] [id number] 09:16:00* Test Item Value Reference Range Interpretation Comments GLUBED (test code = GLUBED) 64 MG/DL 70-110 L Performed by certified gluer machine setup operator at [facility] [id number] 08:24:00* Test Item Value Reference Range Interpretation Comments GLUBED (test code = GLUBED) 83 MG/DL 70-110 N Performed by certified gluer machine setup operator at [facility] - XR CHEST 1 [id number] 07:58:00 FAX: Sarbjit Jimenez MD [phone] [place]: St: ADM FAX: Alex Chan DO [phone] FAX: Tre Villaseñor I [phone] Name: ALEX PETERS [facility] : 1935 Age/S: 85/M [address] [place] [address] Unit #: [id number] Loc: G.6605 [place] [address] Phys: Sarbjit Vera MD Acct: [id number] Dis Date: Status: ADM IN ONE #: [phone] Exam Date: 04/07/2020 0603 FAX #: [phone] Reason: Pneumonia EXAMS: CPT CODE: [id number] XR CHEST 1 V [id number] Chest single v iew 04/07/2020 HISTORY: Pneumonia, shortness of breath, cough Comparison is made to 04/03/2020 FINDINGS: Right lower lung atelectasis/infiltrate is decreased. Left midlung atelectasis is decrea sed. Cardiomegaly is stable. Aorta is unchanged. No interstitial edema is noted. IMPRESSION: 1. Decreased right lower lung ate lectasis/infiltrate. 2. Decreased left midlung atelectasis. 3. Resolution of previous interstitial edema. SL: [id number] at 0758 Reported and signed by: Manish Hastings M.D. CC: Sarbjit Vera MD; Alex Martinez DO; Tre Wang MD Technologist: Selene Light RT(R)(M) Trnscrd Date/Time/By: 04/07/2020 (0758) : By: milena [id number] Orig Print D/T: S: 04/07/2020 (0801) P AGE 1 Signed Report CBC W/AUTO [id number] 07:54:00* Test Item Value Reference Range Interpretation Comments WHITE BLOOD CELL (test code = WBC) 0.83 x10 3/uL 4.5-11.0 L RED BLOOD CELL (test code = RBC) 2.87 x10 6/uL 4.00-5.60 L HEMOGLOBIN (test code = HGB) 8.1 g/dL 12.5-16.9 L HEMATOCRIT (test code = HCT) 27.1 % 37.5-50.7 L MEAN CELL VOLUME (test code = MCV) 94.4 fL 81.0-99.0 N MEAN CELL HGB (test code = MCH) 28.2 pg 27.0-33.0 N MEAN CELL HGB CONCETRATION (test code = MCHC) 29.9 g/dL 33.0-37. 0 L RED CELL DISTRIBUTION WIDTH CV (test code = RDW) 21.1 % 11.5- 14.5 H RED CELL DISTRIBUTION WIDTH SD (test code = RDW-SD) 68.2 fL 37 .0-54.0 H PLATELET COUNT (test code = PLT) 307 x10 3/uL 150-400 N MEAN PLATELET VOLUME (test code = MPV) 11.0 fL 7.0-9.0 H NEUTROPHIL % (test code = NT%) 37.4 % 56.0-77.0 L IMMATURE GRANULOCYTE % (test code = IG%) 0.0 % 0.0-2.0 N LYMPHOCYTE % (test code = LY%) 60.2 % 14.0-32.0 H MONOCYTE % (test code = MO%) 2.4 % 4.8-9.0 L EOSINOPHIL % (test code = EO%) 0.0 % 0.3-3.7 L BASOPHIL % (test code = BA%) 0.0 % 0.0-2.0 N NUCLEATED RBC % (test code = NRBC%) 0.0 % 0-0 N NEUTROPHIL # (test code = NT#) 0.31 x10 3/uL 2.0-7.6 L IMMATURE GRANULOCYTE # (test code = IG#) 0.00 x10 3/uL 0.00-0.03 N LYMPHOCYTE # (test code = LY#) 0.50 x10 3/uL 1.0-3.8 L MONOCYTE # (test code = MO#) 0.02 x10 3/uL 0.1-0.8 L EOSINOPHIL # (test code = EO#) 0.00 x10 3/uL 0.0-0.2 N BASOPHIL # (test code = BA#) 0.00 x10 3/uL 0.0-0.2 N NUCLEATED RBC # (test code = NRBC#) 0.00 x10 3/uL 0.0-0.1 N MANUAL DIFF REQUIRED (test code = MDIFF) BASIC METABOLIC [id number] 07:44:00* Test Item Value Reference Range Interpretation Comments SODIUM (test code = NA) 136 mEq/L 134-147 N POTASSIUM (test code = K) 4.0 mEq/L 3.4-5.0 N CHLORIDE (test code = CL) 107 mEq/L 100-108 N CARBON DIOXIDE (test code = CO2) 19 mEq/L 21-33 L ANION GAP (test code = GAP) 14 0-20 N GLUCOSE (test code = GLU) 69 mg/dL 70-110 L BLOOD UREA NITROGEN (test code = BUN) 19 mg/dL 7-18 H GLOMERULAR FILTRATION RATE (test code = GFR) 71.0 70-80 N Units of measure = ml/min/1.73 m2 CREATININE (test code = CREAT) 1.0 mg/dL 0.6-1.3 N CALCIUM (test code = CA) 9.3 mg/dL 8.0-10.5 N VANCOMYCIN [id number] 06:58:00* Test Item Value Reference Range Interpretation Comments VANCOMYCIN TROUGH (test code = VANCT) 12.0 mcg/mL 10.0-20.0 N 10-15 mcg/mL - Cellulitis, Urinary Tract Infection. 15-20 mcg/mL - Bacteremia, Infective Endocarditis, Meningitis, Osteomyelitis, Pneumonia, Severe Skin/Soft- Tissue Infection, Spinal Abscess. COMMENTS: RN: draw & send vanco level on time at 05:30 on Friday 04/06 CBC W/AUTO [id number] 23:03:00* Test Item Value Reference Range Interpretation Comments WHITE BLOOD CELL (test code = WBC) 1.17 x10 3/uL 4.5-11.0 L RED BLOOD CELL (test code = RBC) 2.89 x10 6/uL 4.00-5.60 L HEMOGLOBIN (test code = HGB) 8.2 g/dL 12.5-16.9 L HEMATOCRIT (test code = HCT) 26.5 % 37.5-50.7 L MEAN CELL VOLUME (test code = MCV) 91.7 fL 81.0-99.0 N MEAN CELL HGB (test code = MCH) 28.4 pg 27.0-33.0 N MEAN CELL HGB CONCETRATION (test code = MCHC) 30.9 g/dL 33.0-37. 0 L RED CELL DISTRIBUTION WIDTH CV (test code = RDW) 20.4 % 11.5- 14.5 H RED CELL DISTRIBUTION WIDTH SD (test code = RDW-SD) 65.8 fL 37 .0-54.0 H PLATELET COUNT (test code = PLT) 307 x10 3/uL 150-400 N MEAN PLATELET VOLUME (test code = MPV) 10.5 fL 7.0-9.0 H MANUAL DIFF REQUIRED (test code = MDIFF) YES WBC [id number] 23:03:00* Test Item Value Reference Range Interpretation Comments SEGMENTED NEUTROPHILS (test code = SEG) 32.4 % 37-69 L LYMPHOCYTE (test code = LYMPH) 65.8 % 23-55 H EOSINOPHIL (test code = EOS) 0.9 % 0.0-4.0 N MYELOCYTE (test code = MYELO) 0.9 % 0.0-0.0 H NUCLEATED RED BLOOD CELL (test code = NRBC) 1.9 % POLYCHROMASIA (test code = POLC) SLIGHT POIKILOCYTOSIS (test code = POIK) 1+ ANISOCYTOSIS (test code = ANISO) 1+ MICROCYTOSIS (test code = MICR) 1+ ELLIPTOCYTES (test code = ELL) FEW SCHISTOCYTES (test code = MARVIN) 1+ DOHLE BODIES (test code = DB) Present PLATELET ESTIMATE (test code = PLTEST) Adequate THOUSAND ADEQUATE PLATELET MORPHOLOGY (test code = PLTMORPH) GIANT PLATELETS LARGE PLTS SEEN CBC W/AUTO [id number] 23:00:00* Test Item Value Reference Range Interpretation Comments WHITE BLOOD CELL (test code = WBC) 1.17 x10 3/uL 4.5-11.0 L RED BLOOD CELL (test code = RBC) 2.89 x10 6/uL 4.00-5.60 L HEMOGLOBIN (test code = HGB) 8.2 g/dL 12.5-16.9 L HEMATOCRIT (test code = HCT) 26.5 % 37.5-50.7 L MEAN CELL VOLUME (test code = MCV) 91.7 fL 81.0-99.0 N MEAN CELL HGB (test code = MCH) 28.4 pg 27.0-33.0 N MEAN CELL HGB CONCETRATION (test code = MCHC) 30.9 g/dL 33.0-37. 0 L RED CELL DISTRIBUTION WIDTH CV (test code = RDW) 20.4 % 11.5- 14.5 H RED CELL DISTRIBUTION WIDTH SD (test code = RDW-SD) 65.8 fL 37 .0-54.0 H PLATELET COUNT (test code = PLT) 307 x10 3/uL 150-400 N MEAN PLATELET VOLUME (test code = MPV) 10.5 fL 7.0-9.0 H MANUAL DIFF REQUIRED (test code = MDIFF) YES WBC [id number] 23:00:00* Test Item Value Reference Range Interpretation Comments ANISOCYTOSIS (test code = ANISO) PLATELET ESTIMATE (test code = PLTEST) THOUSAND ADEQUATE CBC W/AUTO [id number] 23:00:00* Test Item Value Reference Range Interpretation Comments WHITE BLOOD CELL (test code = WBC) 1.17 x10 3/uL 4.5-11.0 L RED BLOOD CELL (test code = RBC) 2.89 x10 6/uL 4.00-5.60 L HEMOGLOBIN (test code = HGB) 8.2 g/dL 12.5-16.9 L HEMATOCRIT (test code = HCT) 26.5 % 37.5-50.7 L MEAN CELL VOLUME (test code = MCV) 91.7 fL 81.0-99.0 N MEAN CELL HGB (test code = MCH) 28.4 pg 27.0-33.0 N MEAN CELL HGB CONCETRATION (test code = MCHC) 30.9 g/dL 33.0-37. 0 L RED CELL DISTRIBUTION WIDTH CV (test code = RDW) 20.4 % 11.5- 14.5 H RED CELL DISTRIBUTION WIDTH SD (test code = RDW-SD) 65.8 fL 37 .0-54.0 H PLATELET COUNT (test code = PLT) 307 x10 3/uL 150-400 N MEAN PLATELET VOLUME (test code = MPV) 10.5 fL 7.0-9.0 H MANUAL DIFF REQUIRED (test code = MDIFF) YES WBC [id number] 23:00:00* Test Item Value Reference Range Interpretation Comments ANISOCYTOSIS (test code = ANISO) PLATELET ESTIMATE (test code = PLTEST) THOUSAND ADEQUATE BASIC METABOLIC [id number] 22:53:00* Test Item Value Reference Range Interpretation Comments SODIUM (test code = NA) 136 mEq/L 134-147 N POTASSIUM (test code = K) 4.3 mEq/L 3.4-5.0 N CHLORIDE (test code = CL) 107 mEq/L 100-108 N CARBON DIOXIDE (test code = CO2) 21 mEq/L 21-33 N ANION GAP (test code = GAP) 12 0-20 N GLUCOSE (test code = GLU) 70 mg/dL 70-110 N BLOOD UREA NITROGEN (test code = BUN) 19 mg/dL 7-18 H GLOMERULAR FILTRATION RATE (test code = GFR) 63.6 70-80 L Units of measure = ml/min/1.73 m2 CREATININE (test code = CREAT) 1.1 mg/dL 0.6-1.3 N CALCIUM (test code = CA) 9.3 mg/dL 8.0-10.5 N COMMENTS: [id number] 22:53:00* Test Item Value Reference Range Interpretation Comments PHOSPHOROUS (test code = PHOS) 2.3 MG/DL 2.5-4.9 L COMMENTS: [id number] 22:53:00* Test Item Value Reference Range Interpretation Comments MAGNESIUM (test code = MAG) 2.50 mg/dL 1.8-2.4 H COMMENTS: [id number] 22:53:00* Test Item Value Reference Range Interpretation Comments TROPONIN-I (test code = TROPI) < 0.015 ng/mL 0.000-0.045 N Negative: <= 0.045 Positive: >= 0.046 Correlation with serial results, other cardiac markers andclinical findings is necessary to determine the clinicalsignificance of this result. Results using different methodologies should not be comparedto one another as quantitative results may vary by method. COMMENTS: VTAYCARDIABASIC METABOLIC [id number] 22:50:00* Test Item Value Reference Range Interpretation Comments SODIUM (test code = NA) mEq/L 134-147 POTASSIUM (test code = K) mEq/L 3.4-5.0 CHLORIDE (test code = CL) mEq/L 100-108 CARBON DIOXIDE (test code = CO2) mEq/L 21-33 ANION GAP (test code = GAP) 0-20 GLUCOSE (test code = GLU) mg/dL 70-110 BLOOD UREA NITROGEN (test code = BUN) mg/dL 7-18 GLOMERULAR FILTRATION RATE (test code = GFR) 70-80 CREATININE (test code = CREAT) mg/dL 0.6-1.3 CALCIUM (test code = CA) mg/dL 8.0-10.5 COMMENTS: [id number] 22:50:00* Test Item Value Reference Range Interpretation Comments PHOSPHOROUS (test code = PHOS) MG/DL 2.5-4.9 COMMENTS: [id number] 22:50:00* Test Item Value Reference Range Interpretation Comments MAGNESIUM (test code = MAG) mg/dL 1.8-2.4 COMMENTS: [id number] 22:50:00* Test Item Value Reference Range Interpretation Comments TROPONIN-I (test code = TROPI) < 0.015 ng/mL 0.000-0.045 N Negative: <= 0.045 Positive: >= 0.046 Correlation with serial results, other cardiac markers andclinical findings is necessary to determine the clinicalsignificance of this result. Results using different methodologies should not be comparedto one another as quantitative results may vary by method. COMMENTS: VTACHYCARDIACBC W/AUTO [id number] 22:35:00* Test Item Value Reference Range Interpretation Comments WHITE BLOOD CELL (test code = WBC) 1.17 x10 3/uL 4.5-11.0 L RED BLOOD CELL (test code = RBC) 2.89 x10 6/uL 4.00-5.60 L HEMOGLOBIN (test code = HGB) 8.2 g/dL 12.5-16.9 L HEMATOCRIT (test code = HCT) 26.5 % 37.5-50.7 L MEAN CELL VOLUME (test code = MCV) 91.7 fL 81.0-99.0 N MEAN CELL HGB (test code = MCH) 28.4 pg 27.0-33.0 N MEAN CELL HGB CONCETRATION (test code = MCHC) 30.9 g/dL 33.0-37. 0 L RED CELL DISTRIBUTION WIDTH CV (test code = RDW) 20.4 % 11.5- 14.5 H RED CELL DISTRIBUTION WIDTH SD (test code = RDW-SD) 65.8 fL 37 .0-54.0 H PLATELET COUNT (test code = PLT) 307 x10 3/uL 150-400 N MEAN PLATELET VOLUME (test code = MPV) 10.5 fL 7.0-9.0 H NEUTROPHIL % (test code = NT%) % 56.0-77.0 LYMPHOCYTE % (test code = LY%) % 14.0-32.0 NEUTROPHIL # (test code = NT#) x10 3/uL 2.0-7.6 LYMPHOCYTE # (test code = LY#) x10 3/uL 1.0-3.8 MANUAL DIFF REQUIRED (test code = MDIFF) [id number] 20:41:00* Test Item Value Reference Range Interpretation Comments GLUBED (test code = GLUBED) 98 MG/DL 70-110 N Performed by certified gluer machine setup operator at [facility] [id number] 17:54:00* Test Item Value Reference Range Interpretation Comments GLUBED (test code = GLUBED) 89 MG/DL 70-110 N Performed by certified gluer machine setup operator at [facility] [id number] 08:12:00* Test Item Value Reference Range Interpretation Comments GLUBED (test code = GLUBED) 82 MG/DL 70-110 N Performed by certified gluer machine setup operator at [facility] COMPREHENSIVE METABOLIC [id number] 04:27:00* Test Item Value Reference Range Interpretation Comments SODIUM (test code = NA) 135 mEq/L 134-147 N POTASSIUM (test code = K) 4.0 mEq/L 3.4-5.0 N CHLORIDE (test code = CL) 107 mEq/L 100-108 N CARBON DIOXIDE (test code = CO2) 20 mEq/L 21-33 L ANION GAP (test code = GAP) 12 0-20 N GLUCOSE (test code = GLU) 76 mg/dL 70-110 N BLOOD UREA NITROGEN (test code = BUN) 23 mg/dL 7-18 H GLOMERULAR FILTRATION RATE (test code = GFR) 57.5 70-80 L Units of measure = ml/min/1.73 m2 CREATININE (test code = CREAT) 1.2 mg/dL 0.6-1.3 N TOTAL PROTEIN (test code = PROT) 8.2 g/dL 6.4-8.2 N ALBUMIN (test code = ALB) 3.40 g/dL 3.4-5.0 N CALCIUM (test code = CA) 9.6 mg/dL 8.0-10.5 N BILIRUBIN TOTAL (test code = BILT) 1.0 MG/DL <1.5 SGOT/AST (test code = AST) 30 IUnit/L 15-37 N SGPT/ALT (test code = ALT) 17 IUnit/L 15-65 N ALKALINE PHOSPHATASE TOTAL (test code = ALKP) 88 IUnit/L 20-125 N CBC W/AUTO [id number] 04:27:00* Test Item Value Reference Range Interpretation Comments WHITE BLOOD CELL (test code = WBC) 0.94 x10 3/uL 4.5-11.0 L RED BLOOD CELL (test code = RBC) 3.05 x10 6/uL 4.00-5.60 L HEMOGLOBIN (test code = HGB) 8.7 g/dL 12.5-16.9 L HEMATOCRIT (test code = HCT) 28.3 % 37.5-50.7 L MEAN CELL VOLUME (test code = MCV) 92.8 fL 81.0-99.0 N MEAN CELL HGB (test code = MCH) 28.5 pg 27.0-33.0 N MEAN CELL HGB CONCETRATION (test code = MCHC) 30.7 g/dL 33.0-37. 0 L RED CELL DISTRIBUTION WIDTH CV (test code = RDW) 21.3 % 11.5- 14.5 H RED CELL DISTRIBUTION WIDTH SD (test code = RDW-SD) 69.9 fL 37 .0-54.0 H PLATELET COUNT (test code = PLT) 326 x10 3/uL 150-400 N MEAN PLATELET VOLUME (test code = MPV) 10.7 fL 7.0-9.0 H MANUAL DIFF REQUIRED (test code = MDIFF) YES WBC [id number] 04:27:00* Test Item Value Reference Range Interpretation Comments SEGMENTED NEUTROPHILS (test code = SEG) 46.4 % 37-69 N LYMPHOCYTE (test code = LYMPH) 52.7 % 23-55 N MONOCYTE (test code = MON) 0.9 % 0-10 N POIKILOCYTOSIS (test code = POIK) 1+ ANISOCYTOSIS (test code = ANISO) 1+ MICROCYTOSIS (test code = MICR) 1+ MACROCYTOSIS (test code = MACR) FEW TARGET CELLS (test code = TGT) FEW SCHISTOCYTES (test code = MARVIN) 1+ PLATELET ESTIMATE (test code = PLTEST) Adequate THOUSAND ADEQUATE PLATELET MORPHOLOGY (test code = PLTMORPH) LARGE PLATELETS CBC W/AUTO [id number] 04:05:00* Test Item Value Reference Range Interpretation Comments WHITE BLOOD CELL (test code = WBC) 0.94 x10 3/uL 4.5-11.0 L RED BLOOD CELL (test code = RBC) 3.05 x10 6/uL 4.00-5.60 L HEMOGLOBIN (test code = HGB) 8.7 g/dL 12.5-16.9 L HEMATOCRIT (test code = HCT) 28.3 % 37.5-50.7 L MEAN CELL VOLUME (test code = MCV) 92.8 fL 81.0-99.0 N MEAN CELL HGB (test code = MCH) 28.5 pg 27.0-33.0 N MEAN CELL HGB CONCETRATION (test code = MCHC) 30.7 g/dL 33.0-37. 0 L RED CELL DISTRIBUTION WIDTH CV (test code = RDW) 21.3 % 11.5- 14.5 H RED CELL DISTRIBUTION WIDTH SD (test code = RDW-SD) 69.9 fL 37 .0-54.0 H PLATELET COUNT (test code = PLT) 326 x10 3/uL 150-400 N MEAN PLATELET VOLUME (test code = MPV) 10.7 fL 7.0-9.0 H MANUAL DIFF REQUIRED (test code = MDIFF) YES WBC [id number] 04:05:00* Test Item Value Reference Range Interpretation Comments ANISOCYTOSIS (test code = ANISO) PLATELET ESTIMATE (test code = PLTEST) THOUSAND ADEQUATE CBC W/AUTO [id number] 04:05:00* Test Item Value Reference Range Interpretation Comments WHITE BLOOD CELL (test code = WBC) 0.94 x10 3/uL 4.5-11.0 L RED BLOOD CELL (test code = RBC) 3.05 x10 6/uL 4.00-5.60 L HEMOGLOBIN (test code = HGB) 8.7 g/dL 12.5-16.9 L HEMATOCRIT (test code = HCT) 28.3 % 37.5-50.7 L MEAN CELL VOLUME (test code = MCV) 92.8 fL 81.0-99.0 N MEAN CELL HGB (test code = MCH) 28.5 pg 27.0-33.0 N MEAN CELL HGB CONCETRATION (test code = MCHC) 30.7 g/dL 33.0-37. 0 L RED CELL DISTRIBUTION WIDTH CV (test code = RDW) 21.3 % 11.5- 14.5 H RED CELL DISTRIBUTION WIDTH SD (test code = RDW-SD) 69.9 fL 37 .0-54.0 H PLATELET COUNT (test code = PLT) 326 x10 3/uL 150-400 N MEAN PLATELET VOLUME (test code = MPV) 10.7 fL 7.0-9.0 H MANUAL DIFF REQUIRED (test code = MDIFF) YES WBC [id number] 04:05:00* Test Item Value Reference Range Interpretation Comments ANISOCYTOSIS (test code = ANISO) PLATELET ESTIMATE (test code = PLTEST) THOUSAND ADEQUATE UR OSMOLALITY [id number] 23:29:00* Test Item Value Reference Range Interpretation Comments UR OSMOLALITY RANDOM (test code = OSMOU) 398 MOS/KG 300-1000 N UR SODIUM [id number] 23:29:00* Test Item Value Reference Range Interpretation Comments UR SODIUM RANDOM (test code = AISLINN) 56 MEQ/L The Reference Range and Method Performance specificationshave not been established for this fluid. The test resultshould be correlated into the clinical context forinterpretation. UR PROTEIN [id number] 23:29:00* Test Item Value Reference Range Interpretation Comments UR PROTEIN RANDOM (test code = PROTU) 115 mg/dL Note: Change in UNITS of MEASUREMENT. The Reference Range and Method Performance specificationshave not been established for this fluid. The test resultshould be correlated into the clinical context forinterpretation. UR CREATININE [id number] 23:29:00* Test Item Value Reference Range Interpretation Comments UR CREATININE RANDOM (test code = CREATU) 54.5 mg/dL The Reference Range and Method Performance specificationshave not been established for this fluid. The test resultshould be correlated into the clinical context forinterpretation. UR OSMOLALITY [id number] 23:29:00* Test Item Value Reference Range Interpretation Comments UR OSMOLALITY RANDOM (test code = OSMOU) 398 MOS/KG 300-1000 [id number] 20:18:00* Test Item Value Reference Range Interpretation Comments GLUBED (test code = GLUBED) 111 MG/DL 70-110 H Performed by certified gluer machine setup operator at [facility] [id number] 17:28:00* Test Item Value Reference Range Interpretation Comments GLUBED (test code = GLUBED) 98 MG/DL 70-110 N Performed by certified gluer machine setup operator at [facility] [id number] 12:36:00* Test Item Value Reference Range Interpretation Comments GLUBED (test code = GLUBED) 117 MG/DL 70-110 H Performed by certified gluer machine setup operator at [facility] B-TYPE NATRIURETIC [id number] 11:41:00* Test Item Value Reference Range Interpretation Comments B-TYPE NATRIURETIC PEPTIDE (test code = BNP) 1287.9 PG/ML 0-100 H [id number] 08:07:00* Test Item Value Reference Range Interpretation Comments GLUBED (test code = GLUBED) 84 MG/DL 70-110 N Performed by certified gluer machine setup operator at [facility] BASIC METABOLIC [id number] 06:02:00* Test Item Value Reference Range Interpretation Comments SODIUM (test code = NA) 138 mEq/L 134-147 N POTASSIUM (test code = K) 4.5 mEq/L 3.4-5.0 N CHLORIDE (test code = CL) 107 mEq/L 100-108 N CARBON DIOXIDE (test code = CO2) 24 mEq/L 21-33 ANION GAP (test code = GAP) 12 0-20 N GLUCOSE (test code = GLU) 71 mg/dL 70-110 BLOOD UREA NITROGEN (test code = BUN) 30 mg/dL 7-18 H GLOMERULAR FILTRATION RATE (test code = GFR) 44.5 70-80 L Units of measure = ml/min/1.73 m2 CREATININE (test code = CREAT) 1.5 mg/dL 0.6-1.3 H CALCIUM (test code = CA) 9.3 mg/dL 8.0-10.5 N PROTEIN ELECTROPHORESIS [id number] 06:02:00* Test Item Value Reference Range Interpretation Comments TOTAL PROTEIN (test code = PROTE) ALBUMIN (test code = ALBE) [id number] (test code = A1G) [id number] (test code = A2G) BETA GLOBULIN (test code = BG) GAMMA GLOBULIN (test code = GG) M-SPIKE,SERUM (test code = MSPIKES) GLOBULIN ELECT (test code = GLOBE) ALBUMIN/GLOBULIN RATIO (test code = AGE) PROT.ELECTROPH.INTERPRETATION (test code = ELEINT) [id number] 06:02:00* Test Item Value Reference Range Interpretation Comments PHOSPHOROUS (test code = PHOS) 2.8 MG/DL 2.5-4.9 N LACTIC DEHYDROGENASE(LDH)2020-04-05 06:02:00* Test Item Value Reference Range Interpretation Comments LACTIC DEHYDROGENASE(LDH) (test code = LDH) 760 IUnits/L 87-241 H [id number] 06:02:00* Test Item Value Reference Range Interpretation Comments MAGNESIUM (test code = MAG) 2.30 mg/dL 1.8-2.4 N TOTAL IRON BINDING [id number] 06:02:00* Test Item Value Reference Range Interpretation Comments SERUM IRON (test code = IRON) 76 mcg/dL 35-150 N TOTAL IRON BINDING CAPACITY (test code = TIBC) 195 mcg/dL 260-445 L UIBC (test code = UIBC) 119 mcg/dL IRON SATURATION (test code = FESAT) 39.0 % 14-34 H VITAMIN [id number] 06:02:00* Test Item Value Reference Range Interpretation Comments VITAMIN B12 (test code = VITB12) 1389 pg/mL 193-986 H FOLIC [id number] 06:02:00* Test Item Value Reference Range Interpretation Comments FOLIC ACID (test code = FOL) 42.8 ng/mL 3.1-17.5 H LEUK/LYMPHOMA [id number] 06:02:00* Test Item Value Reference Range Interpretation Comments LEUK/LYMPHOMA PANEL (test code = LEULYM) [id number] 06:02:00* Test Item Value Reference Range Interpretation Comments FERRITIN (test code = JACKIE) 1421.4 ng/mL 23.9-336.2 H BASIC METABOLIC [id number] 05:26:00* Test Item Value Reference Range Interpretation Comments SODIUM (test code = NA) 138 mEq/L 134-147 N POTASSIUM (test code = K) 4.5 mEq/L 3.4-5.0 N CHLORIDE (test code = CL) 107 mEq/L 100-108 N CARBON DIOXIDE (test code = CO2) 24 mEq/L 21-33 ANION GAP (test code = GAP) 12 0-20 N GLUCOSE (test code = GLU) 71 mg/dL 70-110 BLOOD UREA NITROGEN (test code = BUN) 30 mg/dL 7-18 H GLOMERULAR FILTRATION RATE (test code = GFR) 44.5 70-80 L Units of measure = ml/min/1.73 m2 CREATININE (test code = CREAT) 1.5 mg/dL 0.6-1.3 H CALCIUM (test code = CA) 9.3 mg/dL 8.0-10.5 N PROTEIN ELECTROPHORESIS [id number] 05:26:00* Test Item Value Reference Range Interpretation Comments TOTAL PROTEIN (test code = PROTE) ALBUMIN (test code = ALBE) [id number] (test code = A1G) [id number] (test code = A2G) BETA GLOBULIN (test code = BG) GAMMA GLOBULIN (test code = GG) M-SPIKE,SERUM (test code = MSPIKES) GLOBULIN ELECT (test code = GLOBE) ALBUMIN/GLOBULIN RATIO (test code = AGE) PROT.ELECTROPH.INTERPRETATION (test code = ELEINT) [id number] 05:26:00* Test Item Value Reference Range Interpretation Comments PHOSPHOROUS (test code = PHOS) 2.8 MG/DL 2.5-4.9 N LACTIC DEHYDROGENASE(LDH)2020-04-05 05:26:00* Test Item Value Reference Range Interpretation Comments LACTIC DEHYDROGENASE(LDH) (test code = LDH) 760 IUnits/L 87-241 H [id number] 05:26:00* Test Item Value Reference Range Interpretation Comments MAGNESIUM (test code = MAG) 2.30 mg/dL 1.8-2.4 N TOTAL IRON BINDING [id number] 05:26:00* Test Item Value Reference Range Interpretation Comments SERUM IRON (test code = IRON) 76 mcg/dL 35-150 N TOTAL IRON BINDING CAPACITY (test code = TIBC) 195 mcg/dL 260-445 L UIBC (test code = UIBC) 119 mcg/dL IRON SATURATION (test code = FESAT) 39.0 % 14-34 H VITAMIN [id number] 05:26:00* Test Item Value Reference Range Interpretation Comments VITAMIN B12 (test code = VITB12) 1389 pg/mL 193-986 H FOLIC [id number] 05:26:00* Test Item Value Reference Range Interpretation Comments FOLIC ACID (test code = FOL) ng/mL 3.1-17.5 LEUK/LYMPHOMA [id number] 05:26:00* Test Item Value Reference Range Interpretation Comments LEUK/LYMPHOMA PANEL (test code = LEULYM) [id number] 05:26:00* Test Item Value Reference Range Interpretation Comments FERRITIN (test code = JACKIE) 1421.4 ng/mL 23.9-336.2 H CBC W/AUTO [id number] 05:12:00* Test Item Value Reference Range Interpretation Comments WHITE BLOOD CELL (test code = WBC) 1.19 x10 3/uL 4.5-11.0 L RED BLOOD CELL (test code = RBC) 2.93 x10 6/uL 4.00-5.60 L HEMOGLOBIN (test code = HGB) 8.4 g/dL 12.5-16.9 L HEMATOCRIT (test code = HCT) 26.6 % 37.5-50.7 L MEAN CELL VOLUME (test code = MCV) 90.8 fL 81.0-99.0 MEAN CELL HGB (test code = MCH) 28.7 pg 27.0-33.0 N MEAN CELL HGB CONCETRATION (test code = MCHC) 31.6 g/dL 33.0-37. 0 L RED CELL DISTRIBUTION WIDTH CV (test code = RDW) 21.2 % 11.5- 14.5 H RED CELL DISTRIBUTION WIDTH SD (test code = RDW-SD) 66.9 fL 37 .0-54.0 H PLATELET COUNT (test code = PLT) 388 x10 3/uL 150-400 N MEAN PLATELET VOLUME (test code = MPV) 12.0 fL 7.0-9.0 H MANUAL DIFF REQUIRED (test code = MDIFF) YES WBC [id number] 05:12:00* Test Item Value Reference Range Interpretation Comments SEGMENTED NEUTROPHILS (test code = SEG) 35.8 % 37-69 L LYMPHOCYTE (test code = LYMPH) 63.3 % 23-55 H EOSINOPHIL (test code = EOS) 0.9 % 0.0-4.0 N NUCLEATED RED BLOOD CELL (test code = NRBC) 0.9 % POLYCHROMASIA (test code = POLC) SLIGHT POIKILOCYTOSIS (test code = POIK) 1+ ANISOCYTOSIS (test code = ANISO) 1+ MICROCYTOSIS (test code = MICR) 1+ MACROCYTOSIS (test code = MACR) FEW TEAR DROP CELLS (test code = TEAR) FEW ELLIPTOCYTES (test code = ELL) FEW SCHISTOCYTES (test code = MARVIN) FEW PLATELET ESTIMATE (test code = PLTEST) Adequate THOUSAND ADEQUATE PLATELET MORPHOLOGY (test code = PLTMORPH) GIANT PLATELETS RETICULOCYTE [id number] 05:12:00* Test Item Value Reference Range Interpretation Comments RETIC COUNT (AUTOMATED) (test code = RETICA) 1.4 % 0.3-2.3 N RETIC COUNT ABSOLUTE (test code = RET#) 0.040 x10 6/uL 0.016-0.095 N [id number] 05:03:00* Test Item Value Reference Range Interpretation Comments VANCOMYCIN (test code = VANCO) 8.2 mcg/mL CBC W/AUTO [id number] 04:55:00* Test Item Value Reference Range Interpretation Comments WHITE BLOOD CELL (test code = WBC) 1.19 x10 3/uL 4.5-11.0 L RED BLOOD CELL (test code = RBC) 2.93 x10 6/uL 4.00-5.60 L HEMOGLOBIN (test code = HGB) 8.4 g/dL 12.5-16.9 L HEMATOCRIT (test code = HCT) 26.6 % 37.5-50.7 L MEAN CELL VOLUME (test code = MCV) 90.8 fL 81.0-99.0 MEAN CELL HGB (test code = MCH) 28.7 pg 27.0-33.0 N MEAN CELL HGB CONCETRATION (test code = MCHC) 31.6 g/dL 33.0-37. 0 L RED CELL DISTRIBUTION WIDTH CV (test code = RDW) 21.2 % 11.5- 14.5 H RED CELL DISTRIBUTION WIDTH SD (test code = RDW-SD) 66.9 fL 37 .0-54.0 H PLATELET COUNT (test code = PLT) 388 x10 3/uL 150-400 N MEAN PLATELET VOLUME (test code = MPV) 12.0 fL 7.0-9.0 H MANUAL DIFF REQUIRED (test code = MDIFF) YES WBC [id number] 04:55:00* Test Item Value Reference Range Interpretation Comments ANISOCYTOSIS (test code = ANISO) PLATELET ESTIMATE (test code = PLTEST) THOUSAND ADEQUATE RETICULOCYTE [id number] 04:55:00* Test Item Value Reference Range Interpretation Comments RETIC COUNT (AUTOMATED) (test code = RETICA) 1.4 % 0.3-2.3 N RETIC COUNT ABSOLUTE (test code = RET#) 0.040 x10 6/uL 0.016-0.095 N CBC W/AUTO [id number] 04:55:00* Test Item Value Reference Range Interpretation Comments WHITE BLOOD CELL (test code = WBC) 1.19 x10 3/uL 4.5-11.0 L RED BLOOD CELL (test code = RBC) 2.93 x10 6/uL 4.00-5.60 L HEMOGLOBIN (test code = HGB) 8.4 g/dL 12.5-16.9 L HEMATOCRIT (test code = HCT) 26.6 % 37.5-50.7 L MEAN CELL VOLUME (test code = MCV) 90.8 fL 81.0-99.0 MEAN CELL HGB (test code = MCH) 28.7 pg 27.0-33.0 N MEAN CELL HGB CONCETRATION (test code = MCHC) 31.6 g/dL 33.0-37. 0 L RED CELL DISTRIBUTION WIDTH CV (test code = RDW) 21.2 % 11.5- 14.5 H RED CELL DISTRIBUTION WIDTH SD (test code = RDW-SD) 66.9 fL 37 .0-54.0 H PLATELET COUNT (test code = PLT) 388 x10 3/uL 150-400 N MEAN PLATELET VOLUME (test code = MPV) 12.0 fL 7.0-9.0 H MANUAL DIFF REQUIRED (test code = MDIFF) YES WBC [id number] 04:55:00* Test Item Value Reference Range Interpretation Comments ANISOCYTOSIS (test code = ANISO) PLATELET ESTIMATE (test code = PLTEST) THOUSAND ADEQUATE RETICULOCYTE [id number] 04:55:00* Test Item Value Reference Range Interpretation Comments RETIC COUNT (AUTOMATED) (test code = RETICA) 1.4 % 0.3-2.3 N RETIC COUNT ABSOLUTE (test code = RET#) 0.040 x10 6/uL 0.016-0.095 N CBC W/AUTO [id number] 04:41:00* Test Item Value Reference Range Interpretation Comments WHITE BLOOD CELL (test code = WBC) 1.19 x10 3/uL 4.5-11.0 L RED BLOOD CELL (test code = RBC) 2.93 x10 6/uL 4.00-5.60 L HEMOGLOBIN (test code = HGB) 8.4 g/dL 12.5-16.9 L HEMATOCRIT (test code = HCT) 26.6 % 37.5-50.7 L MEAN CELL VOLUME (test code = MCV) 90.8 fL 81.0-99.0 MEAN CELL HGB (test code = MCH) 28.7 pg 27.0-33.0 N MEAN CELL HGB CONCETRATION (test code = MCHC) 31.6 g/dL 33.0-37. 0 L RED CELL DISTRIBUTION WIDTH CV (test code = RDW) 21.2 % 11.5- 14.5 H RED CELL DISTRIBUTION WIDTH SD (test code = RDW-SD) 66.9 fL 37 .0-54.0 H PLATELET COUNT (test code = PLT) 388 x10 3/uL 150-400 N MEAN PLATELET VOLUME (test code = MPV) 12.0 fL 7.0-9.0 H NEUTROPHIL % (test code = NT%) % 56.0-77.0 LYMPHOCYTE % (test code = LY%) % 14.0-32.0 NEUTROPHIL # (test code = NT#) x10 3/uL 2.0-7.6 LYMPHOCYTE # (test code = LY#) x10 3/uL 1.0-3.8 MANUAL DIFF REQUIRED (test code = MDIFF) RETICULOCYTE [id number] 04:41:00* Test Item Value Reference Range Interpretation Comments RETIC COUNT (AUTOMATED) (test code = RETICA) 1.4 % 0.3-2.3 N RETIC COUNT ABSOLUTE (test code = RET#) 0.040 x10 6/uL 0.016-0.095 N [id number] 21:47:00* Test Item Value Reference Range Interpretation Comments GLUBED (test code = GLUBED) 108 MG/DL 70-110 N Performed by certified gluer machine setup operator at [facility] [id number] 21:47:00* Test Item Value Reference Range Interpretation Comments GLUBED (test code = GLUBED) 160 MG/DL 70-110 H Performed by certified gluer machine setup operator at [facility] UR SODIUM [id number] 20:56:00* Test Item Value Reference Range Interpretation Comments UR SODIUM RANDOM (test code = AISLINN) 56 MEQ/L The Reference Range and Method Performance specificationshave not been established for this fluid. The test resultshould be correlated into the clinical context forinterpretation. UR PROTEIN [id number] 20:56:00* Test Item Value Reference Range Interpretation Comments UR PROTEIN RANDOM (test code = PROTU) 115 mg/dL Note: Change in UNITS of MEASUREMENT. The Reference Range and Method Performance specificationshave not been established for this fluid. The test resultshould be correlated into the clinical context forinterpretation. UR CREATININE [id number] 20:56:00* Test Item Value Reference Range Interpretation Comments UR CREATININE RANDOM (test code = CREATU) 54.5 mg/dL The Reference Range and Method Performance specificationshave not been established for this fluid. The test resultshould be correlated into the clinical context forinterpretation. UR OSMOLALITY [id number] 20:56:00* Test Item Value Reference Range Interpretation Comments UR OSMOLALITY RANDOM (test code = OSMOU) [id number] 20:55:00* Test Item Value Reference Range Interpretation Comments GLUBED (test code = GLUBED) 133 MG/DL 70-110 H Performed by certified gluer machine setup operator at [facility] - US RETROPERITONEAL [id number] 10:32:00 Name: ALEX PETERS [facility] : 1935 Age/S: 85 / M [address] [place] [address] Blvd Unit #: [id number] Loc: [place] [address] Phys: Mamadou Ordonez MD Acct: [id number] Dis Date: Status: ADM IN PHONE #: [phone] Exam Date: 04/04/2020 1024 FAX #: [phone] Reason: febrile neutrapenia, r/o pneumonia EXAMS: CPT CODE: [id number] [facility] RETROPERITONEAL COM 00700 Clinical Indication: Febrile neutropenia; Comparison: None TECHNIQUE: Multiple longitudinal and transverse real time sonographic images of the kidneys and urinary bladder are obtained. FINDINGS: KIDNEY: The right kidney measures 9.6 cm. The left kidney measures 11.0 cm. The kidneys are normal in size, shape, contour, and position. The cortices are normal in thickness and the corticomedullary differentiation is maintained. There is no hydronephrosis, nephrolithiasis, or abnormal perinephric collections. BLADDER: Scanning through the pelvis reveals the bladder to be partially distended with anechoic urine. Somewhat irregular contours of the bladder wall are noted. AORTA AND IVC: The visualized portions appear unremarkable. ASCITES: No ascites noted. IMPRESSION: 1. Unremarkable renal U/S for renal pathology. 2. Somewhat irregular contours of the bladder wall. This may relate to bladder wall tr abeculation and be secondary to bladder outlet obstruction, and the appr opriate clinical setting. Other infectious or inflammatory etiologies ca nnot be definitively excluded. SL: [id number] at 1032 Reported and signed by: Servando Avila D.O. PAGE 1 Signed Report (CONTINUED) Name: ALEX PETERS [facility] : 1935 Age/S: 85 / M [address] [place] [address] Unit #: [id number] Loc: [place] [address] Phys: Mamadou Ordonez MD Acct: [id number] Dis Date: S tatus: ADM IN PHONE #: [phone] Exam Da te: 04/04/2020 1024 FAX #: [phone] Reason: febril e neutrapenia, r/o pneumonia EXAMS: CPT CODE: [id number] [facility] COM [id number] <Continued> CC: Mamadou Ordonez MD; Alex Martinez DO; Jarred Tna MD Technologist: Palma Dominguez Trnscb Date/Time: 04/04/2020 (1032) [email or web address] Orig Print D/T: S: 04/04/2020 (1035) Probe: PAGE 2 Signed Report CBC W/AUTO [id number] 10:29:00* Test Item Value Reference Range Interpretation Comments WHITE BLOOD CELL (test code = WBC) 0.93 x10 3/uL 4.5-11.0 L RED BLOOD CELL (test code = RBC) 2.28 x10 6/uL 4.00-5.60 L HEMOGLOBIN (test code = HGB) 6.5 g/dL 12.5-16.9 L HEMATOCRIT (test code = HCT) 21.8 % 37.5-50.7 L MEAN CELL VOLUME (test code = MCV) 95.6 fL 81.0-99.0 MEAN CELL HGB (test code = MCH) 28.5 pg 27.0-33.0 N MEAN CELL HGB CONCETRATION (test code = MCHC) 29.8 g/dL 33.0-37. 0 L RED CELL DISTRIBUTION WIDTH CV (test code = RDW) 23.7 % 11.5- 14.5 H RED CELL DISTRIBUTION WIDTH SD (test code = RDW-SD) 82.1 fL 37 .0-54.0 H PLATELET COUNT (test code = PLT) 340 x10 3/uL 150-400 N MEAN PLATELET VOLUME (test code = MPV) 12.0 fL 7.0-9.0 H MANUAL DIFF REQUIRED (test code = MDIFF) YES WBC [id number] 10:29:00* Test Item Value Reference Range Interpretation Comments SEGMENTED NEUTROPHILS (test code = SEG) 43.5 % 37-69 N LYMPHOCYTE (test code = LYMPH) 56.5 % 23-55 H NUCLEATED RED BLOOD CELL (test code = NRBC) 2.8 % POIKILOCYTOSIS (test code = POIK) 2+ ANISOCYTOSIS (test code = ANISO) 2+ OVALOCYTES (test code = OVAL) 2+ SCHISTOCYTES (test code = MARVIN) 1+ PLATELET ESTIMATE (test code = PLTEST) Adequate THOUSAND ADEQUATE PLATELET MORPHOLOGY (test code = PLTMORPH) LARGE PLATELETS AND FEW GIANT PLTS CBC W/AUTO [id number] 10:28:00* Test Item Value Reference Range Interpretation Comments WHITE BLOOD CELL (test code = WBC) 0.93 x10 3/uL 4.5-11.0 L RED BLOOD CELL (test code = RBC) 2.28 x10 6/uL 4.00-5.60 L HEMOGLOBIN (test code = HGB) 6.5 g/dL 12.5-16.9 L HEMATOCRIT (test code = HCT) 21.8 % 37.5-50.7 L MEAN CELL VOLUME (test code = MCV) 95.6 fL 81.0-99.0 MEAN CELL HGB (test code = MCH) 28.5 pg 27.0-33.0 N MEAN CELL HGB CONCETRATION (test code = MCHC) 29.8 g/dL 33.0-37. 0 L RED CELL DISTRIBUTION WIDTH CV (test code = RDW) 23.7 % 11.5- 14.5 H RED CELL DISTRIBUTION WIDTH SD (test code = RDW-SD) 82.1 fL 37 .0-54.0 H PLATELET COUNT (test code = PLT) 340 x10 3/uL 150-400 N MEAN PLATELET VOLUME (test code = MPV) 12.0 fL 7.0-9.0 H MANUAL DIFF REQUIRED (test code = MDIFF) YES WBC [id number] 10:28:00* Test Item Value Reference Range Interpretation Comments ANISOCYTOSIS (test code = ANISO) PLATELET ESTIMATE (test code = PLTEST) THOUSAND ADEQUATE CBC W/AUTO [id number] 10:28:00* Test Item Value Reference Range Interpretation Comments WHITE BLOOD CELL (test code = WBC) 0.93 x10 3/uL 4.5-11.0 L RED BLOOD CELL (test code = RBC) 2.28 x10 6/uL 4.00-5.60 L HEMOGLOBIN (test code = HGB) 6.5 g/dL 12.5-16.9 L HEMATOCRIT (test code = HCT) 21.8 % 37.5-50.7 L MEAN CELL VOLUME (test code = MCV) 95.6 fL 81.0-99.0 MEAN CELL HGB (test code = MCH) 28.5 pg 27.0-33.0 N MEAN CELL HGB CONCETRATION (test code = MCHC) 29.8 g/dL 33.0-37. 0 L RED CELL DISTRIBUTION WIDTH CV (test code = RDW) 23.7 % 11.5- 14.5 H RED CELL DISTRIBUTION WIDTH SD (test code = RDW-SD) 82.1 fL 37 .0-54.0 H PLATELET COUNT (test code = PLT) 340 x10 3/uL 150-400 N MEAN PLATELET VOLUME (test code = MPV) 12.0 fL 7.0-9.0 H MANUAL DIFF REQUIRED (test code = MDIFF) YES WBC [id number] 10:28:00* Test Item Value Reference Range Interpretation Comments ANISOCYTOSIS (test code = ANISO) PLATELET ESTIMATE (test code = PLTEST) THOUSAND ADEQUATE COMPREHENSIVE METABOLIC [id number] 08:37:00* Test Item Value Reference Range Interpretation Comments SODIUM (test code = NA) 139 mEq/L 134-147 N POTASSIUM (test code = K) 3.9 mEq/L 3.4-5.0 N CHLORIDE (test code = CL) 109 mEq/L 100-108 H CARBON DIOXIDE (test code = CO2) 19 mEq/L 21-33 L ANION GAP (test code = GAP) 15 0-20 N GLUCOSE (test code = GLU) 119 mg/dL 70-110 H BLOOD UREA NITROGEN (test code = BUN) 33 mg/dL 7-18 H GLOMERULAR FILTRATION RATE (test code = GFR) 38.5 70-80 L Units of measure = ml/min/1.73 m2 CREATININE (test code = CREAT) 1.7 mg/dL 0.6-1.3 H TOTAL PROTEIN (test code = PROT) 7.9 g/dL 6.4-8.2 N ALBUMIN (test code = ALB) 3.40 g/dL 3.4-5.0 N CALCIUM (test code = CA) 10.1 mg/dL 8.0-10.5 N BILIRUBIN TOTAL (test code = BILT) 0.7 MG/DL <1.5 N SGOT/AST (test code = AST) 20 IUnit/L 15-37 N SGPT/ALT (test code = ALT) 14 IUnit/L 15-65 L ALKALINE PHOSPHATASE TOTAL (test code = ALKP) 83 IUnit/L 20-125 N CBC W/AUTO [id number] 08:26:00* Test Item Value Reference Range Interpretation Comments WHITE BLOOD CELL (test code = WBC) 0.93 x10 3/uL 4.5-11.0 L RED BLOOD CELL (test code = RBC) 2.28 x10 6/uL 4.00-5.60 L HEMOGLOBIN (test code = HGB) 6.5 g/dL 12.5-16.9 L HEMATOCRIT (test code = HCT) 21.8 % 37.5-50.7 L MEAN CELL VOLUME (test code = MCV) 95.6 fL 81.0-99.0 MEAN CELL HGB (test code = MCH) 28.5 pg 27.0-33.0 N MEAN CELL HGB CONCETRATION (test code = MCHC) 29.8 g/dL 33.0-37. 0 L RED CELL DISTRIBUTION WIDTH CV (test code = RDW) 23.7 % 11.5- 14.5 H RED CELL DISTRIBUTION WIDTH SD (test code = RDW-SD) 82.1 fL 37 .0-54.0 H PLATELET COUNT (test code = PLT) 340 x10 3/uL 150-400 N MEAN PLATELET VOLUME (test code = MPV) 12.0 fL 7.0-9.0 H NEUTROPHIL % (test code = NT%) % 56.0-77.0 LYMPHOCYTE % (test code = LY%) % 14.0-32.0 NEUTROPHIL # (test code = NT#) x10 3/uL 2.0-7.6 LYMPHOCYTE # (test code = LY#) x10 3/uL 1.0-3.8 MANUAL DIFF REQUIRED (test code = MDIFF) [id number] 08:07:00* Test Item Value Reference Range Interpretation Comments GLUBED (test code = GLUBED) 110 MG/DL 70-110 N Performed by certified gluer machine setup operator at [facility] UA RFLX MICR CULT IF [id number] 23:59:00* Test Item Value Reference Range Interpretation Comments UA COLOR (test code = COLU) YELLOW YEL/STRAW UA APPEARANCE (test code = APPU) CLEAR CLEAR UA GLUCOSE DIPSTICK (test code = DGLUU) NEGATIVE NEGATIVE UA BILIRUBIN DIPSTICK (test code = BILU) NEGATIVE NEGATIVE UA KETONE DIPSTICK (test code = KETU) NEGATIVE NEGATIVE UA SPECIFIC GRAVITY (test code = SGU) 1.013 1.005-1.030 N UA BLOOD DIPSTICK (test code = ZENIA) NEGATIVE NEGATIVE UA PH DIPSTICK (test code = RAKESH) 5.0 5.0-7.0 N UA PROTEIN DIPSTICK (test code = PROU) 2+ NEGATIVE A UA UROBILINIOGEN DIPSTICK (test code = URO) 0.2 mg/dL 0.2-1.0 UA NITRITE DIPSTICK (test code = MAXIMINO) NEGATIVE NEGATIVE UA LEUKOCYTE ESTERASE DIPSTICK (test code = LEUU) NEGATIVE NEGA TIVE UA WBC (test code = WBCU) 4-9 WBC/HPF 0-3 A UA RBC (test code = RBCU) 0-3 RBC/HPF 0-3 UA WBC NO REFLEX (test code = WBCUCL) 4-9 WBC/HPF 0-3 A UA BACTERIA (test code = BACU) TRACE /HPF NONE SEEN UA SQUAMOUS CELLS (test code = SQU) 0-5 /HPF NONE SEEN UA MUCUS (test code = MUCU) 1+ /LPF NONE SEEN Indication for culture: Temperature > 100.4 FSpecimen Description: CLEAN CATCH- CT CHEST W/O [id number] 23:05:00 Name: ALEX PETERS [facility] [place] : 1935 Age/S: 85 / M [address] [place] [address] Blvd Unit #: [id number] Loc: [place] [address] Phys: Mamadou Ordonez MD Acct: [id number] Dis Date: Status: ADM IN PHONE #: [phone] Exam Date: 04/03/20202244 FAX #: [phone] Reason: febrile neutrapenia, r/o pneumonia EXAMS: CPT CODE: [id number] CT CHEST W/O CONTRAST 11986 STUDY: - CT CHEST W/O CONTRAST 04/03/2020 9:44 PM Ordering Physician: Mamadou Ordonez MD Patient Name: ALEX PETERS MR: [id number] : 1935; Age: 85 years y/o Male Clinical Indication: febrile neutropenia, r/o pneumonia Comparison: None TECHNIQUE: Multiple contiguous transaxial noncontrast CT images were obtained through the chest. Sagittal and coronal reformatted images were prepared. CT imaging performed at this location utilizes radiation dose optimization techniques which include one or more of the following: -Automated exposure control -Adjustment of the mA and/or kV according to patient size -U se of iterative reconstruction technique CT Radiation Dose DLP: 3 01.93 mGy-cm FINDINGS: LUNGS: Well inflated lungs associated with a small left pleural effusion and adjacent subsegme ntal atelectasis. Focal patchy opacity with air bronchograms in the right middle lobe and an irregular hazy/consolidative opacity in the right lung apex are suspicious for pneumonia. Small 5 mm indeterminate pulmonary no dule in the right lower lobe. The left lung is clear. No evidence of pne umothorax. AIRWAY: Clear central tracheobronchial tree. HEART: Mild cardiomegaly associated with moderate to severe coronary a rtery calcifications and trace pericardial effusion. THORACIC AORT A: Normal caliber nonenhanced thoracic aorta associated with mild vascular calcification. PULMONARY ARTERIES: Nonopacified. ME DIASTINUM AND REYNALDO: Multiple scattered subcentimeter maximum shortest axis mediastinal lymph nodes. Mildly heterogeneous thyroid. PAGE 1 Signed Report (CONTINUED) Name: ALEX PETERS [facility] [place] : 1935 Age/S: 85 / M [address] [place] [address] Unit #: [id number] Loc: [place] [address] Phys: Mamadou Ordonez MD Acct: [id number] Dis Date: [facility]: ADM IN PHONE #: [phone] Exam Saqib e: 04/03/20202244 FAX #: [phone] Reason: febrile neutrapenia, r/o pneumonia EXAMS: CPT CODE: [id number] CT CHEST W/O CONTRAST 87222 <Continued> VISUALIZED UPPER ABDOMEN: Cholecystectomy with mild central biliary ductal dilatation likely physiological in nature. Multiple small calcified hepatic and splenic granulomas. SOFT TISSUES: Mild diffuse anasarca. OSSEOUS STRUCTURES: No fracture, dislocation, or suspicious focal osseous lesion. Mild to moderate thoracic spondylosis and facet arthrosis. IMPRESSION: Patchy and ill-defined opacities in the right middle lobe and right lung apex suspicious for pneumonia. Small right pleural effusion with adjacent opacity likely subsegmental atelectasis. Mild cardiomegaly associated with moderate to severe coronary artery calcifications and trace pericardial effusion. Cholecystectomy with mild central biliary ductal dilatation likely physiological in nature related to reservoir effect. Mild anasarca. SL: TPAINTER-H at 2305 Reported and signed by: Romario Rosales M.D. PAGE 2 Signed Report (CONTINUED) Name: ALEX PETERS [facility] : 1935 Age/S: 85 / M [address] [place] [address] Unit #: [id number] Loc: [place] [address] Phys: Mamadou Ordonez MD Acct: [id number] Dis Date: Status: ADM IN PHONE #: [phone] Exam Date: 04/03/20202244 FAX #: [phone] Reason: febrile neutrapenia, r/o pneumonia EXAMS: CPT CODE: [id number] CT CHEST W/O CONTRAST 23926 <Continued> CC: Mamadou Ordonez MD; Alex Martinez DO; Jarred Tan MD Technologist:Maribel Armendariz RT(R)(CT) CTDI: DLP: Trnscb Date/Time: 04/03/2020 (2305) t.SDR.TP6 Orig Print D/T: S: 04/03/2020 (1424) PAGE 3 Signed Report LACTIC [id number] 20:30:00* Test Item Value Reference Range Interpretation Comments LACTIC ACID (test code = LACT) 1.2 mmol/L 0.4-1.9 N Coronavirus 2019 nCoV [id number] 20:23:00* Test Item Value Reference Range Interpretation Comments Coronavirus 2019 nCoV Bedside (test code = [id number]) Negative Negative Negative results should be treated as presumptive and, ifinconsistent with clinical signs and symptoms or necessaryfor patient management, should be tested with an alternativemolecular assay. Negative results do not preclude IDQJ-UrX-7gwmfrnqvq and should not be used as the sole basis forpatient management decisions. Negative results should beconsidered in the context of a patient's recent exposures,history, presence of clinical signs and symptoms consistentwith COVID-19. - XR CHEST 1 [id number] 18:23:00 FAX: Alex Chan DO [phone] Hugo: St: PRE FAX: Jarred Tan MD Name: ALEX PETERS [facility] : 1935 Age/S: 85/M [address] [place] [address] Unit #: [id number] Loc: [place] [address] Phys: Jarred Tan MD Acct: [id number] Dis Date: Status: PRE ER PHONE #: [phone] Exam Date: 04/03/20201807 FAX #: [phone] Reason: fever, cough EXAMS: CPT CODE: [id number] XR CHEST 1 V 63742 Study: - XR CHEST 1 V 04/03/2020 5:04 PM Patient Name: ALEX PETERS MR: [id number] : 1935; Age: 85 years y/o Male Ordering Physician: Jarred Tan MD Clinical Indication: fever, cough Comparison: None FINDINGS LUNGS: Hazy and linear opacities in the right lower lung. Linear atelectasis in the left lower lung. HEART AND MEDIASTINUM: Normal size heart. LINES: None. OSSEOUS STRUCTURES: No fracture, dislocation, or suspicious focal osseous lesion. Suture anchors in the bilateral humeral heads. OTHER: None. IMPRESSION: Bilateral lower lung opacities, representing atelectasis with or without pneumonia. SL: AP-H at 1823 Reported and signed by: Bhanu Crawley M.D. CC: Alex Martinez DO; Jarred Tan MD Technologist: Lanette Flores, RT(R); Sheridan Akbar RT(R) Trnscrd Date/Time/By: 04/03/2020 (1822) : By: [email or web address] Orig Print D/T: S: 04/03/2020 (1826) PAGE 1 Signed Report CBC W/AUTO [id number] 18:10:00* Test Item Value Reference Range Interpretation Comments WHITE BLOOD CELL (test code = WBC) 1.48 x10 3/uL 4.5-11.0 L RED BLOOD CELL (test code = RBC) 2.60 x10 6/uL 4.00-5.60 L HEMOGLOBIN (test code = HGB) 7.4 g/dL 12.5-16.9 L HEMATOCRIT (test code = HCT) 23.8 % 37.5-50.7 L MEAN CELL VOLUME (test code = MCV) 91.5 fL 81.0-99.0 N MEAN CELL HGB (test code = MCH) 28.5 pg 27.0-33.0 N MEAN CELL HGB CONCETRATION (test code = MCHC) 31.1 g/dL 33.0-37. 0 L RED CELL DISTRIBUTION WIDTH CV (test code = RDW) 23.8 % 11.5- 14.5 H RED CELL DISTRIBUTION WIDTH SD (test code = RDW-SD) 76.6 fL 37 .0-54.0 H PLATELET COUNT (test code = PLT) 381 x10 3/uL 150-400 N MEAN PLATELET VOLUME (test code = MPV) 11.6 fL 7.0-9.0 H MANUAL DIFF REQUIRED (test code = MDIFF) YES Previously reported result: NO Edited by: MILA on 04/03/20:095464 1759: MAN DIFF NEEDED previously reported as: NO WBC [id number] 18:10:00* Test Item Value Reference Range Interpretation Comments SEGMENTED NEUTROPHILS (test code = SEG) 45.9 % 37-69 N LYMPHOCYTE (test code = LYMPH) 53.2 % 23-55 N REACTIVE LYMPH (test code = RELYMPH) 0.9 % NUCLEATED RED BLOOD CELL (test code = NRBC) 2.8 % POLYCHROMASIA (test code = POLC) 1+ POIKILOCYTOSIS (test code = POIK) 1+ ANISOCYTOSIS (test code = ANISO) 1+ MICROCYTOSIS (test code = MICR) FEW MACROCYTOSIS (test code = MACR) FEW ELLIPTOCYTES (test code = ELL) FEW PLATELET ESTIMATE (test code = PLTEST) Adequate THOUSAND ADEQUATE PLATELET MORPHOLOGY (test code = PLTMORPH) LARGE PLATELETS BASIC METABOLIC [id number] 18:02:00* Test Item Value Reference Range Interpretation Comments SODIUM (test code = NA) 133 mEq/L 134-147 L POTASSIUM (test code = K) 4.3 mEq/L 3.4-5.0 N CHLORIDE (test code = CL) 106 mEq/L 100-108 N CARBON DIOXIDE (test code = CO2) 18 mEq/L 21-33 L ANION GAP (test code = GAP) 13 0-20 N GLUCOSE (test code = GLU) 120 mg/dL 70-110 H BLOOD UREA NITROGEN (test code = BUN) 30 mg/dL 7-18 H GLOMERULAR FILTRATION RATE (test code = GFR) 30.2 70-80 L Units of measure = ml/min/1.73 m2 CREATININE (test code = CREAT) 2.1 mg/dL 0.6-1.3 H CALCIUM (test code = CA) 9.4 mg/dL 8.0-10.5 N HEPATIC FUNCTION [id number] 18:02:00* Test Item Value Reference Range Interpretation Comments TOTAL PROTEIN (test code = PROT) 8.6 g/dL 6.4-8.2 H ALBUMIN (test code = ALB) 3.70 g/dL 3.4-5.0 N BILIRUBIN TOTAL (test code = BILT) 0.8 MG/DL <1.5 N BILIRUBIN DIRECT (test code = BILD) 0.40 MG/DL 0.0-0.30 H BILIRUBIN INDIRECT (test code = BILIND) 0.40 MG/DL SGOT/AST (test code = AST) 23 IUnit/L 15-37 N SGPT/ALT (test code = ALT) 15 IUnit/L 15-65 N ALKALINE PHOSPHATASE TOTAL (test code = ALKP) 91 IUnit/L 20-125 N TSH REFLEX TO [id number] 18:02:00* Test Item Value Reference Range Interpretation Comments TSH REFLEX TO FT4 (test code = TSHREFLEX) 3.01 IU/mL 0.42-5.47 N [id number] 18:02:00* Test Item Value Reference Range Interpretation Comments TROPONIN-I (test code = TROPI) < 0.015 ng/mL 0.000-0.045 N Negative: <= 0.045 Positive: >= 0.046 Correlation with serial results, other cardiac markers andclinical findings is necessary to determine the clinicalsignificance of this result. Results using different methodologies should not be comparedto one another as quantitative results may vary by method. CBC W/AUTO [id number] 18:00:00* Test Item Value Reference Range Interpretation Comments WHITE BLOOD CELL (test code = WBC) 1.48 x10 3/uL 4.5-11.0 L RED BLOOD CELL (test code = RBC) 2.60 x10 6/uL 4.00-5.60 L HEMOGLOBIN (test code = HGB) 7.4 g/dL 12.5-16.9 L HEMATOCRIT (test code = HCT) 23.8 % 37.5-50.7 L MEAN CELL VOLUME (test code = MCV) 91.5 fL 81.0-99.0 N MEAN CELL HGB (test code = MCH) 28.5 pg 27.0-33.0 N MEAN CELL HGB CONCETRATION (test code = MCHC) 31.1 g/dL 33.0-37. 0 L RED CELL DISTRIBUTION WIDTH CV (test code = RDW) 23.8 % 11.5- 14.5 H RED CELL DISTRIBUTION WIDTH SD (test code = RDW-SD) 76.6 fL 37 .0-54.0 H PLATELET COUNT (test code = PLT) 381 x10 3/uL 150-400 N MEAN PLATELET VOLUME (test code = MPV) 11.6 fL 7.0-9.0 H MANUAL DIFF REQUIRED (test code = MDIFF) YES Previously reported result: NO Edited by: ArnicaBetoHaute AppBetoRE on 04/03/20:1758: MAN DIFF NEEDED previously reported as: NO WBC [id number] 18:00:00* Test Item Value Reference Range Interpretation Comments ANISOCYTOSIS (test code = ANISO) PLATELET ESTIMATE (test code = PLTEST) THOUSAND ADEQUATE CBC W/AUTO [id number] 18:00:00* Test Item Value Reference Range Interpretation Comments WHITE BLOOD CELL (test code = WBC) 1.48 x10 3/uL 4.5-11.0 L RED BLOOD CELL (test code = RBC) 2.60 x10 6/uL 4.00-5.60 L HEMOGLOBIN (test code = HGB) 7.4 g/dL 12.5-16.9 L HEMATOCRIT (test code = HCT) 23.8 % 37.5-50.7 L MEAN CELL VOLUME (test code = MCV) 91.5 fL 81.0-99.0 N MEAN CELL HGB (test code = MCH) 28.5 pg 27.0-33.0 N MEAN CELL HGB CONCETRATION (test code = MCHC) 31.1 g/dL 33.0-37. 0 L RED CELL DISTRIBUTION WIDTH CV (test code = RDW) 23.8 % 11.5- 14.5 H RED CELL DISTRIBUTION WIDTH SD (test code = RDW-SD) 76.6 fL 37 .0-54.0 H PLATELET COUNT (test code = PLT) 381 x10 3/uL 150-400 N MEAN PLATELET VOLUME (test code = MPV) 11.6 fL 7.0-9.0 H MANUAL DIFF REQUIRED (test code = MDIFF) YES Previously reported result: NO Edited by: UrgentRxLABBetoRE on 04/03/20:9: MAN DIFF NEEDED previously reported as: NO WBC [id number] 18:00:00* Test Item Value Reference Range Interpretation Comments ANISOCYTOSIS (test code = ANISO) PLATELET ESTIMATE (test code = PLTEST) THOUSAND ADEQUATE CBC W/AUTO [id number] 17:58:00* Test Item Value Reference Range Interpretation Comments WHITE BLOOD CELL (test code = WBC) 1.48 x10 3/uL 4.5-11.0 L RED BLOOD CELL (test code = RBC) 2.60 x10 6/uL 4.00-5.60 L HEMOGLOBIN (test code = HGB) 7.4 g/dL 12.5-16.9 L HEMATOCRIT (test code = HCT) 23.8 % 37.5-50.7 L MEAN CELL VOLUME (test code = MCV) 91.5 fL 81.0-99.0 N MEAN CELL HGB (test code = MCH) 28.5 pg 27.0-33.0 N MEAN CELL HGB CONCETRATION (test code = MCHC) 31.1 g/dL 33.0-37. 0 L RED CELL DISTRIBUTION WIDTH CV (test code = RDW) 23.8 % 11.5- 14.5 H RED CELL DISTRIBUTION WIDTH SD (test code = RDW-SD) 76.6 fL 37 .0-54.0 H PLATELET COUNT (test code = PLT) 381 x10 3/uL 150-400 N MEAN PLATELET VOLUME (test code = MPV) 11.6 fL 7.0-9.0 H NEUTROPHIL % (test code = NT%) 45.9 % 56.0-77.0 L IMMATURE GRANULOCYTE % (test code = IG%) 0.7 % 0.0-2.0 N LYMPHOCYTE % (test code = LY%) 50.0 % 14.0-32.0 H MONOCYTE % (test code = MO%) 3.4 % 4.8-9.0 L EOSINOPHIL % (test code = EO%) 0.0 % 0.3-3.7 L BASOPHIL % (test code = BA%) 0.0 % 0.0-2.0 N NUCLEATED RBC % (test code = NRBC%) 1.4 % 0-0 H NEUTROPHIL # (test code = NT#) 0.68 x10 3/uL 2.0-7.6 L IMMATURE GRANULOCYTE # (test code = IG#) 0.01 x10 3/uL 0.00-0.03 N LYMPHOCYTE # (test code = LY#) 0.74 x10 3/uL 1.0-3.8 L MONOCYTE # (test code = MO#) 0.05 x10 3/uL 0.1-0.8 L EOSINOPHIL # (test code = EO#) 0.00 x10 3/uL 0.0-0.2 N BASOPHIL # (test code = BA#) 0.00 x10 3/uL 0.0-0.2 N NUCLEATED RBC # (test code = NRBC#) 0.02 x10 3/uL 0.0-0.1 N MANUAL DIFF REQUIRED (test code = MDIFF) NO BASIC METABOLIC [id number] 17:56:00* Test Item Value Reference Range Interpretation Comments SODIUM (test code = NA) 133 mEq/L 134-147 L POTASSIUM (test code = K) 4.3 mEq/L 3.4-5.0 N CHLORIDE (test code = CL) 106 mEq/L 100-108 N CARBON DIOXIDE (test code = CO2) 18 mEq/L 21-33 L ANION GAP (test code = GAP) 13 0-20 N GLUCOSE (test code = GLU) 120 mg/dL 70-110 H BLOOD UREA NITROGEN (test code = BUN) 30 mg/dL 7-18 H GLOMERULAR FILTRATION RATE (test code = GFR) 30.2 70-80 L Units of measure = ml/min/1.73 m2 CREATININE (test code = CREAT) 2.1 mg/dL 0.6-1.3 H CALCIUM (test code = CA) 9.4 mg/dL 8.0-10.5 N HEPATIC FUNCTION [id number] 17:56:00* Test Item Value Reference Range Interpretation Comments TOTAL PROTEIN (test code = PROT) g/dL 6.4-8.2 ALBUMIN (test code = ALB) 3.70 g/dL 3.4-5.0 N BILIRUBIN TOTAL (test code = BILT) 0.8 MG/DL <1.5 N BILIRUBIN DIRECT (test code = BILD) 0.40 MG/DL 0.0-0.30 H BILIRUBIN INDIRECT (test code = BILIND) 0.40 MG/DL SGOT/AST (test code = AST) 23 IUnit/L 15-37 N SGPT/ALT (test code = ALT) 15 IUnit/L 15-65 N ALKALINE PHOSPHATASE TOTAL (test code = ALKP) 91 IUnit/L 20-125 N TSH REFLEX TO [id number] 17:56:00* Test Item Value Reference Range Interpretation Comments TSH REFLEX TO FT4 (test code = TSHREFLEX) IU/mL 0.42-5.47 [id number] 17:56:00* Test Item Value Reference Range Interpretation Comments TROPONIN-I (test code = TROPI) < 0.015 ng/mL 0.000-0.045 N Negative: <= 0.045 Positive: >= 0.046 Correlation with serial results, other cardiac markers andclinical findings is necessary to determine the clinicalsignificance of this result. Results using different methodologies should not be comparedto one another as quantitative results may vary by method. CBC W/AUTO [id number] 17:36:00* Test Item Value Reference Range Interpretation Comments WHITE BLOOD CELL (test code = WBC) 1.48 x10 3/uL 4.5-11.0 L RED BLOOD CELL (test code = RBC) 2.60 x10 6/uL 4.00-5.60 L HEMOGLOBIN (test code = HGB) 7.4 g/dL 12.5-16.9 L HEMATOCRIT (test code = HCT) 23.8 % 37.5-50.7 L MEAN CELL VOLUME (test code = MCV) 91.5 fL 81.0-99.0 N MEAN CELL HGB (test code = MCH) 28.5 pg 27.0-33.0 N MEAN CELL HGB CONCETRATION (test code = MCHC) 31.1 g/dL 33.0-37. 0 L RED CELL DISTRIBUTION WIDTH CV (test code = RDW) 23.8 % 11.5- 14.5 H RED CELL DISTRIBUTION WIDTH SD (test code = RDW-SD) 76.6 fL 37 .0-54.0 H PLATELET COUNT (test code = PLT) 381 x10 3/uL 150-400 N MEAN PLATELET VOLUME (test code = MPV) 11.6 fL 7.0-9.0 H NEUTROPHIL % (test code = NT%) % 56.0-77.0 LYMPHOCYTE % (test code = LY%) % 14.0-32.0 NEUTROPHIL # (test code = NT#) x10 3/uL 2.0-7.6 LYMPHOCYTE # (test code = LY#) x10 3/uL 1.0-3.8 MANUAL DIFF REQUIRED (test code = MDIFF) CXR 2 VIEW - [id number] 18:56:00 [place] [address] Patient Name: ALEX PETERS MR #: [id number] : 1935 Age/Sex: 84/M Req #: [id number] Adm Physician: Ordered by: ML PEREZ MD Report #: [id number] [facility] Room/Bed: Procedure: [id number] HOP D/CXR 2 VIEW - HOPD Exam Date: 10/27/19 Exam Time: 1 839 REPORT STATUS: Signed Examin ation: Single AP view of the chest. COMPARISON: 09/22/2019 INDICATION: Fever DISCUSSION: Lungs remain well-inflated. Linear opacities i n the mid and lower lung zones are grossly unchanged. Right pleural effusion h as decreased in size. Stable cardiomediastinal contour with prominence of the central pulmonary vasculature. No acute osseous abnormality. IM PRESSION: Right pleural effusion has decreased in size. Otherwise stable a ppearance of the heart and lungs relative to 09/22/2019. No new consolidations. Signed by: Dr. Jonathon So M.D. on 10/27/2019 6:59 PM Dicta ainsley By: JONATHON SO MD 58 Transcribed By: CALVIN on 10/27/191858 COPY TO: ML PEREZ MD Bedside [id number] 11:49:00* Test Item Value Reference Range Interpretation Comments Bedside Glucose (test code = 73876-3) 86 70-120 Meter ID: [id number] Medical CenterBedside Glucose 2019-09-27 11:49:00* Test Item Value Reference Range Interpretation Comments Bedside Glucose (test code = 85967-5) 86 70-120 Meter ID: [id number] Medical CenterDifferential Total Cells Asomsge9513-65-26 07:32:00* Test Item Value Reference Range Interpretation Comments Differential Total Cells Counted (test code = Differen tial Total Cells Counted) 100 [facility] CenterNeutrophils % (Manual)2019-09-27 07:32:00 * Test Item Value Reference Range Interpretation Comments Neutrophils % (Manual) (test code = 41593-1) 66 40-74 [facility] CenterLymphocytes % (Manual)2019-09-27 07:32:00 * Test Item Value Reference Range Interpretation Comments Lymphocytes % (Manual) (test code = 737-7) 31 19-48 [facility] CenterMonocytes % (Manual)2019-09-27 07:32:00* Test Item Value Reference Range Interpretation Comments Monocytes % (Manual) (test code = 744-3) 3 3.4-9.0 L [facility] CenterPlatelet Zwobteen8144-58-86 07:32:00* Test Item Value Reference Range Interpretation Comments Platelet Estimate (test code = 04217-7) MARKEDLY INCREASED [facility] CenterPlatelet Morphology Pxcpmfv6398-19-41 07:32:00* Test Item Value Reference Range Interpretation Comments Platelet Morphology Comment (test code = 63222-9) NORMAL [facility] CenterRed Cell Morphology Iaklqvy7763-03-20 07:32:00* Test Item Value Reference Range Interpretation Comments Red Cell Morphology Comment (test code = 6742-1) NORMAL [facility] CenterDifferential Total Cells Counted 2019-09-27 07:32:00* Test Item Value Reference Range Interpretation Comments Differential Total Cells Counted (test code = Differen tial Total Cells Counted) 100 [facility] CenterNeutrophils % (Manual)2019-09-27 07:32:00 * Test Item Value Reference Range Interpretation Comments Neutrophils % (Manual) (test code = 38599-9) 66 40-74 [facility] CenterLymphocytes % (Manual)2019-09-27 07:32:00 * Test Item Value Reference Range Interpretation Comments Lymphocytes % (Manual) (test code = 737-7) 31 19-48 [facility] CenterMonocytes % (Manual)2019-09-27 07:32:00* Test Item Value Reference Range Interpretation Comments Monocytes % (Manual) (test code = 744-3) 3 3.4-9.0 L [facility] CenterPlatelet Qwiaurdw1515-47-47 07:32:00* Test Item Value Reference Range Interpretation Comments Platelet Estimate (test code = 57300-5) MARKEDLY INCREASED [facility] CenterPlatelet Morphology Rloahxr4648-12-69 07:32:00* Test Item Value Reference Range Interpretation Comments Platelet Morphology Comment (test code = 51886-1) NORMAL [facility] CenterRed Cell Morphology Dwcntym3245-26-74 07:32:00* Test Item Value Reference Range Interpretation Comments Red Cell Morphology Comment (test code = 6742-1) NORMAL [facility]odium Zmlpy0958-20-46 06:49:00* Test Item Value Reference Range Interpretation Comments Sodium Level (test code = 2951-2) 140 136-145 [facility] CenterPotassium Lnfsy5376-85-70 06:49:00* Test Item Value Reference Range Interpretation Comments Potassium Level (test code = 2823-3) 3.6 3.5-5.1 [facility] CenterChloride Awuhw8550-25-15 06:49:00* Test Item Value Reference Range Interpretation Comments Chloride Level (test code = 2075-0) 106 98-107 [facility] CenterCarbon Dioxide Qrdjy2808-22-85 06:49:00* Test Item Value Reference Range Interpretation Comments Carbon Dioxide Level (test code = 2028-9) 21 22-29 L [facility] CenterAnion [id number] 06:49:00* Test Item Value Reference Range Interpretation Comments Anion Gap (test code = 92297-9) 16.6 8-16 H [facility] CenterBlood Urea Brmeeyee8155-62-87 06:49:00* Test Item Value Reference Range Interpretation Comments Blood Urea Nitrogen (test code = 3094-0) 22 7-26 [facility] CenterCreatinine2020-01-16 06:49:00* Test Item Value Reference Range Interpretation Comments Creatinine (test code = 2160-0) 1.11 0.72-1.25 [facility] CenterBUN/Creatinine Erbzu2642-82-44 06:49:00* Test Item Value Reference Range Interpretation Comments BUN/Creatinine Ratio (test code = 3097-3) 20 6-25 [facility] CenterEstimat Glomerular Filtration Rate 2019-09-27 06:49:00* Test Item Value Reference Range Interpretation Comments Estimat Glomerular Filtration Rate (test code = 271460565) > 60 >60 Ranges were taken from the National Kidney Disease Education Program and the [facility] literature.Reference ranges:60 or greater: Xqxpcp95-25 ( for 3 consecutive months): Chronic kidney disease 15 or less: Kidney failureDallas Medical CenterGlucose Ijwst4292-40-92 06:49:00* Test Item Value Reference Range Interpretation Comments Glucose Level (test code = HIN8476) 82 74-118 [facility] CenterCalcium Zlxgi7899-95-52 06:49:00* Test Item Value Reference Range Interpretation Comments Calcium Level (test code = 88360-5) 9.7 8.4-10.2 [facility] CenterTotal Twwafearf6590-28-55 06:49:00* Test Item Value Reference Range Interpretation Comments Total Bilirubin (test code = 1975-2) 0.9 0.2-1.2 [facility] CenterAspartate Amino Transf (AST/SGOT) 2019-09-27 06:49:00* Test Item Value Reference Range Interpretation Comments Aspartate Amino Transf (AST/SGOT) (test code = Aspartate Amino Transf (AST/SGOT)) 46 5-34 H [facility] CenterAlanine Aminotransferase (ALT/SGPT) 2019-09-27 06:49:00* Test Item Value Reference Range Interpretation Comments Alanine Aminotransferase (ALT/SGPT) (test code = 1742-6) 19 0-55 [facility] CenterTotal Qkvoauq8813-39-94 06:49:00* Test Item Value Reference Range Interpretation Comments Total Protein (test code = 2885-2) 6.7 6.5-8.1 [facility] CenterAlbumin2020-01-16 06:49:00* Test Item Value Reference Range Interpretation Comments Albumin (test code = 1751-7) 3.8 3.5-5.0 [facility] CenterGlobulin2020-01-16 06:49:00* Test Item Value Reference Range Interpretation Comments Globulin (test code = 88084-0) 2.9 2.3-3.5 [facility] CenterAlbumin/Globulin Shrnr4358-10-19 06:49:00 * Test Item Value Reference Range Interpretation Comments Albumin/Globulin Ratio (test code = 1759-0) 1.3 0.8-2.0 [facility] CenterAlkaline Ujjmpljfebo6156-60-47 06:49:00* Test Item Value Reference Range Interpretation Comments Alkaline Phosphatase (test code = 6768-6) 75 40-150 [facility]odium Qstbz6570-54-86 06:49:00* Test Item Value Reference Range Interpretation Comments Sodium Level (test code = 2951-2) 140 136-145 [facility] CenterPotassium Nnpzb1801-29-16 06:49:00* Test Item Value Reference Range Interpretation Comments Potassium Level (test code = 2823-3) 3.6 3.5-5.1 [facility] CenterChloride Zyidw7631-64-58 06:49:00* Test Item Value Reference Range Interpretation Comments Chloride Level (test code = 2075-0) 106 98-107 [facility] CenterCarbon Dioxide Lttbp0395-89-41 06:49:00* Test Item Value Reference Range Interpretation Comments Carbon Dioxide Level (test code = 2028-9) 21 22-29 L [facility] CenterAnion Cbj9132-95-32 06:49:00* Test Item Value Reference Range Interpretation Comments Anion Gap (test code = 51845-9) 16.6 8-16 H [facility] CenterBlood Urea Fbqapvhf0620-97-86 06:49:00* Test Item Value Reference Range Interpretation Comments Blood Urea Nitrogen (test code = 3094-0) 22 7-26 [facility] CenterCreatinine2020-01-16 06:49:00* Test Item Value Reference Range Interpretation Comments Creatinine (test code = 2160-0) 1.11 0.72-1.25 [facility] CenterBUN/Creatinine Ojpxm4392-16-84 06:49:00* Test Item Value Reference Range Interpretation Comments BUN/Creatinine Ratio (test code = 3097-3) 20 6-25 [facility] CenterEstimat Glomerular Filtration Rate 2019-09-27 06:49:00* Test Item Value Reference Range Interpretation Comments Estimat Glomerular Filtration Rate (test code = 803433601) > 60 >60 Ranges were taken from the National Kidney Disease Education Program and the [facility] literature.Reference ranges:60 or greater: Vvopxw90-59 ( for 3 consecutive months): Chronic kidney disease 15 or less: Kidney failureDallas Medical CenterGlucose Qbzvb8954-05-39 06:49:00* Test Item Value Reference Range Interpretation Comments Glucose Level (test code = IDU3808) 82 74-118 [facility] CenterCalcium Reklu2989-76-60 06:49:00* Test Item Value Reference Range Interpretation Comments Calcium Level (test code = 65147-2) 9.7 8.4-10.2 [facility] CenterTotal Gwyotzodj6699-98-78 06:49:00* Test Item Value Reference Range Interpretation Comments Total Bilirubin (test code = 1975-2) 0.9 0.2-1.2 [facility] CenterAspartate Amino Transf (AST/SGOT) 2019-09-27 06:49:00* Test Item Value Reference Range Interpretation Comments Aspartate Amino Transf (AST/SGOT) (test code = Aspartate Amino Transf (AST/SGOT)) 46 5-34 H [facility] CenterAlanine Aminotransferase (ALT/SGPT) 2019-09-27 06:49:00* Test Item Value Reference Range Interpretation Comments Alanine Aminotransferase (ALT/SGPT) (test code = 1742-6) 19 0-55 [facility] CenterTotal Opbwuma2277-13-80 06:49:00* Test Item Value Reference Range Interpretation Comments Total Protein (test code = 2885-2) 6.7 6.5-8.1 [facility] CenterAlbumin2020-01-16 06:49:00* Test Item Value Reference Range Interpretation Comments Albumin (test code = 1751-7) 3.8 3.5-5.0 [facility] CenterGlobulin2020-01-16 06:49:00* Test Item Value Reference Range Interpretation Comments Globulin (test code = 47154-5) 2.9 2.3-3.5 [facility] CenterAlbumin/Globulin Vwnej6613-27-63 06:49:00 * Test Item Value Reference Range Interpretation Comments Albumin/Globulin Ratio (test code = 1759-0) 1.3 0.8-2.0 [facility] CenterAlkaline [id number] 06:49:00* Test Item Value Reference Range Interpretation Comments Alkaline Phosphatase (test code = 6768-6) 75 40-150 [facility] [id number] 06:26:00* Test Item Value Reference Range Interpretation Comments White Blood Count (test code = 6690-2) 1.77 4.8-10.8 LL Results called to ALIVIA SMITH at 0625 on 09/27/19 by [place] De Leon. RB [place].[facility] Center[facility] Blood [id number] 06:26:00* Test Item Value Reference Range Interpretation Comments Red Blood Count (test code = 789-8) 3.21 4.3-5.7 L [facility] CenterHemoglobin2020-01-16 06:26:00* Test Item Value Reference Range Interpretation Comments Hemoglobin (test code = 87471-8) 9.4 14.0-18.0 L [facility] CenterHematocrit2020-01-16 06:26:00* Test Item Value Reference Range Interpretation Comments Hematocrit (test code = 4544-3) 31.2 38.2-49.6 L [facility] CenterMean Corpuscular Ybbqyf3967-61-10 06:26:00* Test Item Value Reference Range Interpretation Comments Mean Corpuscular Volume (test code = 787-2) 97.2 81-99 [facility] CenterMean Corpuscular Udcghabfhi3322-90-78 06:26:00* Test Item Value Reference Range Interpretation Comments Mean Corpuscular Hemoglobin (test code = 785-6) 29.3 28-32 [facility] CenterMean Corpuscular Hemoglobin Concent 2019-09-27 06:26:00* Test Item Value Reference Range Interpretation Comments Mean Corpuscular Hemoglobin Concent (test code = 786-4) 30.1 31-35 L [facility] CenterRed Cell Distribution Srgsv2079-27-23 06:26:00* Test Item Value Reference Range Interpretation Comments Red Cell Distribution Width (test code = 60461-3) 23.3 11.7 -14.4 H [facility] CenterPlatelet Oqjlw1242-73-62 06:26:00* Test Item Value Reference Range Interpretation Comments Platelet Count (test code = 777-3) 649 140-360 H [facility] CenterNeutrophils (%) (Auto)2019-09-27 06:26:00 * Test Item Value Reference Range Interpretation Comments Neutrophils (%) (Auto) (test code = 54448-9) 61.5 38.7-80.0 [facility] CenterLymphocytes (%) (Auto)2019-09-27 06:26:00 * Test Item Value Reference Range Interpretation Comments Lymphocytes (%) (Auto) (test code = 736-9) 33.3 18.0-39.1 [facility] CenterMonocytes (%) (Auto)2019-09-27 06:26:00* Test Item Value Reference Range Interpretation Comments Monocytes (%) (Auto) (test code = 5905-5) 4.0 4.4-11.3 L [facility] CenterEosinophils (%) (Auto)2019-09-27 06:26:00 * Test Item Value Reference Range Interpretation Comments Eosinophils (%) (Auto) (test code = 713-8) 0.6 0.0-6.0 [facility] CenterBasophils (%) (Auto)2019-09-27 06:26:00* Test Item Value Reference Range Interpretation Comments Basophils (%) (Auto) (test code = 706-2) 0.0 0.0-1.0 [facility] CenterIM GRANULOCYTES %2019-09-27 06:26:00* Test Item Value Reference Range Interpretation Comments IM GRANULOCYTES % (test code = IM GRANULOCYTES %) 0.6 0.0- 1.0 [facility] CenterNeutrophils # (Auto)2019-09-27 06:26:00* Test Item Value Reference Range Interpretation Comments Neutrophils # (Auto) (test code = 751-8) 1.1 2.1-6.9 L [facility] CenterLymphocytes # (Auto)2019-09-27 06:26:00* Test Item Value Reference Range Interpretation Comments Lymphocytes # (Auto) (test code = 25968-4) 0.6 1.0-3.2 L [facility] CenterMonocytes # (Auto)2019-09-27 06:26:00* Test Item Value Reference Range Interpretation Comments Monocytes # (Auto) (test code = 742-7) 0.1 0.2-0.8 L [facility] CenterEosinophils # (Auto)2019-09-27 06:26:00* Test Item Value Reference Range Interpretation Comments Eosinophils # (Auto) (test code = 711-2) 0.0 0.0-0.4 [facility] CenterBasophils # (Auto)2019-09-27 06:26:00* Test Item Value Reference Range Interpretation Comments Basophils # (Auto) (test code = 704-7) 0.0 0.0-0.1 [facility] CenterAbsolute Immature Granulocyte (auto 2019-09-27 06:26:00* Test Item Value Reference Range Interpretation Comments Absolute Immature Granulocyte (auto (joão t code = Absolute Immature Granulocyte (auto) 0.01 0-0.1 [facility] CenterWhite Blood Ptqvn6968-28-56 06:26:00* Test Item Value Reference Range Interpretation Comments White Blood Count (test code = 6690-2) 1.77 4.8-10.8 LL Results called to ALIVIA SMITH at 0625 on 09/27/19 by [place] De Leon. [place].[facility] CenterRed Blood Qcyvg1036-29-10 06:26:00* Test Item Value Reference Range Interpretation Comments Red Blood Count (test code = 789-8) 3.21 4.3-5.7 L [facility] CenterHemoglobin2020-01-16 06:26:00* Test Item Value Reference Range Interpretation Comments Hemoglobin (test code = 68960-4) 9.4 14.0-18.0 L [facility] CenterHematocrit2020-01-16 06:26:00* Test Item Value Reference Range Interpretation Comments Hematocrit (test code = 4544-3) 31.2 38.2-49.6 L [facility] CenterMean Corpuscular Qxpmfi6004-46-49 06:26:00* Test Item Value Reference Range Interpretation Comments Mean Corpuscular Volume (test code = 787-2) 97.2 81-99 [facility] CenterMean Corpuscular Xmhvgnvttp4765-05-69 06:26:00* Test Item Value Reference Range Interpretation Comments Mean Corpuscular Hemoglobin (test code = 785-6) 29.3 28-32 [facility] CenterMean Corpuscular Hemoglobin Concent 2019-09-27 06:26:00* Test Item Value Reference Range Interpretation Comments Mean Corpuscular Hemoglobin Concent (test code = 786-4) 30.1 31-35 L [facility] CenterRed Cell Distribution Caqpc0101-53-58 06:26:00* Test Item Value Reference Range Interpretation Comments Red Cell Distribution Width (test code = 25672-8) 23.3 11.7 -14.4 H [facility] CenterPlatelet Yxvdx3222-12-72 06:26:00* Test Item Value Reference Range Interpretation Comments Platelet Count (test code = 777-3) 649 140-360 H [facility] CenterNeutrophils (%) (Auto)2019-09-27 06:26:00 * Test Item Value Reference Range Interpretation Comments Neutrophils (%) (Auto) (test code = 63951-8) 61.5 38.7-80.0 [facility] CenterLymphocytes (%) (Auto)2019-09-27 06:26:00 * Test Item Value Reference Range Interpretation Comments Lymphocytes (%) (Auto) (test code = 736-9) 33.3 18.0-39.1 [facility] CenterMonocytes (%) (Auto)2019-09-27 06:26:00* Test Item Value Reference Range Interpretation Comments Monocytes (%) (Auto) (test code = 5905-5) 4.0 4.4-11.3 L [facility] CenterEosinophils (%) (Auto)2019-09-27 06:26:00 * Test Item Value Reference Range Interpretation Comments Eosinophils (%) (Auto) (test code = 713-8) 0.6 0.0-6.0 [facility] CenterBasophils (%) (Auto)2019-09-27 06:26:00* Test Item Value Reference Range Interpretation Comments Basophils (%) (Auto) (test code = 706-2) 0.0 0.0-1.0 [facility] CenterIM GRANULOCYTES %2019-09-27 06:26:00* Test Item Value Reference Range Interpretation Comments IM GRANULOCYTES % (test code = IM GRANULOCYTES %) 0.6 0.0- 1.0 [facility] CenterNeutrophils # (Auto)2019-09-27 06:26:00* Test Item Value Reference Range Interpretation Comments Neutrophils # (Auto) (test code = 751-8) 1.1 2.1-6.9 L [facility] CenterLymphocytes # (Auto)2019-09-27 06:26:00* Test Item Value Reference Range Interpretation Comments Lymphocytes # (Auto) (test code = 41241-4) 0.6 1.0-3.2 L [facility] CenterMonocytes # (Auto)2019-09-27 06:26:00* Test Item Value Reference Range Interpretation Comments Monocytes # (Auto) (test code = 742-7) 0.1 0.2-0.8 L [facility] CenterEosinophils # (Auto)2019-09-27 06:26:00* Test Item Value Reference Range Interpretation Comments Eosinophils # (Auto) (test code = 711-2) 0.0 0.0-0.4 [facility] CenterBasophils # (Auto)2019-09-27 06:26:00* Test Item Value Reference Range Interpretation Comments Basophils # (Auto) (test code = 704-7) 0.0 0.0-0.1 [facility] CenterAbsolute Immature Granulocyte (auto 2019-09-27 06:26:00* Test Item Value Reference Range Interpretation Comments Absolute Immature Granulocyte (auto (joão t code = Absolute Immature Granulocyte (auto) 0.01 0-0.1 [facility] CenterCapillary blood glucose measurement by glucometer (mass/volume)2019-09-27 06:23:00* Test Item Value Reference Range Interpretation Comments Bedside Glucose (test code = 46305-0) 86 70-120 Meter ID: [id number] Medical CenterBlood leukocytes automated count (number/volume)2019-09-27 04:30:00* Test Item Value Reference Range Interpretation Comments White Blood Count (test code = 6690-2) 1.77 4.8-10.8 Results called to ALIVIA SMITH at 0625 on 09/27/19 by [place] De Leon. [place].[facility] CenterBlood erythrocytes automated count (number/volume)2019-09-27 04:30:00* Test Item Value Reference Range Interpretation Comments Red Blood Count (test code = 789-8) 3.21 4.3-5.7 [facility] CenterBlood hemoglobin measurement (moles/volume)2019-09-27 04:30:00* Test Item Value Reference Range Interpretation Comments Hemoglobin (test code = 84624-2) 9.4 14.0-18.0 [facility] CenterAutomated blood hematocrit (volume fraction)2019-09-27 04:30:00* Test Item Value Reference Range Interpretation Comments Hematocrit (test code = 4544-3) 31.2 38.2-49.6 [facility] CenterAutomated erythrocyte mean corpuscular bhxthu4097-42-30 04:30:00* Test Item Value Reference Range Interpretation Comments Mean Corpuscular Volume (test code = 787-2) 97.2 81-99 [facility] CenterAutomated erythrocyte mean corpuscular hemoglobin (mass per erythrocyte)2019-09-27 04:30:00* Test Item Value Reference Range Interpretation Comments Mean Corpuscular Hemoglobin (test code = 785-6) 29.3 28-32 [facility] CenterAutatrium health mercyed erythrocyte mean corpuscular hemoglobin concentration measurement (mass/volume)2019-09-27 04:30:00* Test Item Value Reference Range Interpretation Comments Mean Corpuscular Hemoglobin Concent (test code = 786-4) 30.1 31-35 [facility] CenterRDW HcjRx-Pwv8593-01-16 04:30:00* Test Item Value Reference Range Interpretation Comments Red Cell Distribution Width (test code = 25445-8) 23.3 11.7 -14.4 [facility] CenterAutatrium health mercyed blood platelet count (count/volume)2019-09-27 04:30:00* Test Item Value Reference Range Interpretation Comments Platelet Count (test code = 777-3) 649 140-360 [facility] CenterAutomated blood segmented neutrophil count as percentage of total svazxdgfzv0404-60-33 04:30:00* Test Item Value Reference Range Interpretation Comments Neutrophils (%) (Auto) (test code = 93503-0) 61.5 38.7-80.0 [facility] CenterAutat[facility] health mercyed blood lymphocyte count as percentage ot total kfpnhnbdmm1350-54-70 04:30:00* Test Item Value Reference Range Interpretation Comments Lymphocytes (%) (Auto) (test code = 736-9) 33.3 18.0-39.1 [facility] CenterAutomated blood monocyte count as percentage of total maizyjbbkm7153-71-23 04:30:00* Test Item Value Reference Range Interpretation Comments Monocytes (%) (Auto) (test code = 5905-5) 4.0 4.4-11.3 [facility] CenterAutomated blood eosinophil count as percentage of total abnijdqcej4827-74-74 04:30:00* Test Item Value Reference Range Interpretation Comments Eosinophils (%) (Auto) (test code = 713-8) 0.6 0.0-6.0 [facility] CenterAutomated blood basophil count as percentage of total efahyudkcs3233-15-41 04:30:00* Test Item Value Reference Range Interpretation Comments Basophils (%) (Auto) (test code = 706-2) 0.0 0.0-1.0 [facility] CenterFluoroscopic procedure less than one hour ywvqalxc9611-75-77 04:30:00* Test Item Value Reference Range Interpretation Comments IM GRANULOCYTES % (test code = IM GRANULOCYTES %) 0.6 0.0- 1.0 [facility] CenterAutomated blood neutrophil count 2019-09-27 04:30:00* Test Item Value Reference Range Interpretation Comments Neutrophils # (Auto) (test code = 751-8) 1.1 2.1-6.9 [facility] CenterBlood lymphocytes count (number/volume) 2019-09-27 04:30:00* Test Item Value Reference Range Interpretation Comments Lymphocytes # (Auto) (test code = 20579-1) 0.6 1.0-3.2 [facility] CenterBlood monocytes automated count (number/volume)2019-09-27 04:30:00* Test Item Value Reference Range Interpretation Comments Monocytes # (Auto) (test code = 742-7) 0.1 0.2-0.8 [facility] CenterAutomated blood eosinophil count 2019-09-27 04:30:00* Test Item Value Reference Range Interpretation Comments Eosinophils # (Auto) (test code = 711-2) 0.0 0.0-0.4 [facility] CenterAutomated blood basophil count (count/volume)2019-09-27 04:30:00* Test Item Value Reference Range Interpretation Comments Basophils # (Auto) (test code = 704-7) 0.0 0.0-0.1 [facility] CenterFluoroscopic procedure less than one hour zoejznqn6555-48-92 04:30:00* Test Item Value Reference Range Interpretation Comments Absolute Immature Granulocyte (auto (joão t code = Absolute Immature Granulocyte (auto) 0.01 0-0.1 [facility] CenterFluoroscopic procedure less than one hour gtmeddnl2135-72-14 04:30:00* Test Item Value Reference Range Interpretation Comments Differential Total Cells Counted (test code = Differyvrose tial Total Cells Counted) 100 [facility] CenterManual blood neutrophils/100 leukocytes 2019-09-27 04:30:00* Test Item Value Reference Range Interpretation Comments Neutrophils % (Manual) (test code = 48177-2) 66 40-74 [facility] CenterManual blood lymphocytes/100 leukocytes 2019-09-27 04:30:00* Test Item Value Reference Range Interpretation Comments Lymphocytes % (Manual) (test code = 737-7) 31 19-48 [facility] CenterManual blood monocytes/100 leukocytes 2019-09-27 04:30:00* Test Item Value Reference Range Interpretation Comments Monocytes % (Manual) (test code = 744-3) 3 3.4-9.0 [facility] CenterBlood platelets count by estimate (number/volume)2019-09-27 04:30:00* Test Item Value Reference Range Interpretation Comments Platelet Estimate (test code = 19648-2) MARKEDLY INCREASED [facility] CenterPlatelet uzqkechrzn4527-33-06 04:30:00* Test Item Value Reference Range Interpretation Comments Platelet Morphology Comment (test code = 60805-8) NORMAL [facility] CenterRBC syyqjozzcq0221-44-78 04:30:00* Test Item Value Reference Range Interpretation Comments Red Cell Morphology Comment (test code = 6742-1) [facility]ORMAL [facility] sodium measurement (moles/volume)2019-09-27 04:30:00* Test Item Value Reference Range Interpretation Comments Sodium Level (test code = 2951-2) 140 136-145 [facility] Hospitalerum or plasma potassium measurement (moles/volume)2019-09-27 04:30:00* Test Item Value Reference Range Interpretation Comments Potassium Level (test code = 2823-3) 3.6 3.5-5.1 [facility] Hospitalerum or plasma chloride measurement (moles/volume)2019-09-27 04:30:00* Test Item Value Reference Range Interpretation Comments Chloride Level (test code = 2075-0) 106 98-107 [facility] Hospitalerum or plasma carbon dioxide, total measurement (moles/volume)2019-09-27 04:30:00* Test Item Value Reference Range Interpretation Comments Carbon Dioxide Level (test code = 2028-9) 21 22-29 [facility] Hospitalerum or plasma anion qra9306-22-58 04:30:00* Test Item Value Reference Range Interpretation Comments Anion Gap (test code = 64449-8) 16.6 8-16 [facility] Hospitalerum or plasma urea nitrogen measurement (mass/volume)2019-09-27 04:30:00* Test Item Value Reference Range Interpretation Comments Blood Urea Nitrogen (test code = 3094-0) 22 7-26 [facility] Hospitalerum or plasma creatinine measurement (mass/volume)2019-09-27 04:30:00* Test Item Value Reference Range Interpretation Comments Creatinine (test code = 2160-0) 1.11 0.72-1.25 [facility] Hospitalerum or plasma urea nitrogen/creatinine mass jaarl4497-72-88 04:30:00* Test Item Value Reference Range Interpretation Comments BUN/Creatinine Ratio (test code = 3097-3) 20 6-25 [facility] CenterEstimated glomerular filtration rate (GFR) oscacguezsgut5939-39-77 04:30:00* Test Item Value Reference Range Interpretation Comments Estimat Glomerular Filtration Rate (test code = 499806133) > 60 >60 Ranges were taken from the National Kidney Disease Education Program and the [facility] [employer] literature.Reference ranges:60 or greater: Gegwtz69-78 ( for 3 consecutive months): Chronic kidney disease 15 or less: Kidney failureD[facility] Medical CenterGlucose upqadecxaop1460-72-24 04:30:00* Test Item Value Reference Range Interpretation Comments Glucose Level (test code = PYF4785) 82 74-118 [facility] Hospitalerum or plasma calcium measurement (mass/volume)2019-09-27 04:30:00* Test Item Value Reference Range Interpretation Comments Calcium Level (test code = 73276-6) 9.7 8.4-10.2 [facility] Hospitalerum or plasma total bilirubin measurement (mass/volume)2019-09-27 04:30:00* Test Item Value Reference Range Interpretation Comments Total Bilirubin (test code = 1975-2) 0.9 0.2-1.2 [facility] CenterFluoroscopic procedure less than one hour lhoomfsw4933-99-72 04:30:00* Test Item Value Reference Range Interpretation Comments Aspartate Amino Transf (AST/SGOT) (test code = Aspartate Amino Transf (AST/SGOT)) 46 5-34 [facility] Hospitalerum or plasma alanine aminotransferase measurement (enzymatic activity/volume)2019-09-27 04:30:00* Test Item Value Reference Range Interpretation Comments Alanine Aminotransferase (ALT/SGPT) (test code = 1742-6) 19 0-55 [facility] Hospitalerum or plasma protein measurement (mass/volume)2019-09-27 04:30:00* Test Item Value Reference Range Interpretation Comments Total Protein (test code = 2885-2) 6.7 6.5-8.1 [facility] Hospitalerum or plasma albumin measurement (mass/volume)2019-09-27 04:30:00* Test Item Value Reference Range Interpretation Comments Albumin (test code = 1751-7) 3.8 3.5-5.0 [facility] CenterPlasma globulin measurement (mass/volume) 2019-09-27 04:30:00* Test Item Value Reference Range Interpretation Comments Globulin (test code = 36575-2) 2.9 2.3-3.5 [facility] Hospitalerum or plasma albumin/globulin mass tqold7361-01-44 04:30:00* Test Item Value Reference Range Interpretation Comments Albumin/Globulin Ratio (test code = 1759-0) 1.3 0.8-2.0 [facility] Hospitalerum or plasma alkaline phosphatase measurement (enzymatic activity/volume)2019-09-27 04:30:00* Test Item Value Reference Range Interpretation Comments Alkaline Phosphatase (test code = 6768-6) 75 40-150 [facility] CenterFerritin2020-01-15 07:21:00* Test Item Value Reference Range Interpretation Comments Ferritin (test code = 2276-4) 344.26 21.81-274.66 H [facility] CenterFerritin2020-01-15 07:21:00* Test Item Value Reference Range Interpretation Comments Ferritin (test code = 2276-4) 344.26 21.81-274.66 H [facility] CenterIron Lwpfj2419-15-35 06:58:00* Test Item Value Reference Range Interpretation Comments Iron Level (test code = 2498-4) 35 65-175 L [facility] CenterTotal Iron Binding Jgsmlxfe1269-48-03 06:58:00* Test Item Value Reference Range Interpretation Comments Total Iron Binding Capacity (test code = 2500-7) 304 261-4 78 [facility] CenterPercent Iron Lvuhgxqker7637-81-53 06:58:00* Test Item Value Reference Range Interpretation Comments Percent Iron Saturation (test code = 2502-3) 12 15-50 L [facility] CenterTransferrin2020-01-15 06:58:00* Test Item Value Reference Range Interpretation Comments Transferrin (test code = 3034-6) 217 174-364 [facility] Pznxw1018-62-94 06:58:00* Test Item Value Reference Range Interpretation Comments Iron Level (test code = 2498-4) 35 65-175 L [facility] CenterTotal Iron Binding Emdqmfnt6676-13-35 06:58:00* Test Item Value Reference Range Interpretation Comments Total Iron Binding Capacity (test code = 2500-7) 304 261-4 78 [facility] CenterPercent Iron Rrbqatcwci2348-43-64 06:58:00* Test Item Value Reference Range Interpretation Comments Percent Iron Saturation (test code = 2502-3) 12 15-50 L [facility] CenterTransferrin2020-01-15 06:58:00* Test Item Value Reference Range Interpretation Comments Transferrin (test code = 3034-6) 217 174-364 [facility]erum or plasma iron measurement (mass/volume)2019-09-26 04:10:00* Test Item Value Reference Range Interpretation Comments Iron Level (test code = 2498-4) 35 65-175 [facility] Hospitalerum or plasma iron binding capacity measurement (mass/volume)2019-09-26 04:10:00* Test Item Value Reference Range Interpretation Comments Total Iron Binding Capacity (test code = 2500-7) 304 261-4 78 [facility] Hospitalerum or plasma iron saturation measurement (mass fraction)2019-09-26 04:10:00* Test Item Value Reference Range Interpretation Comments Percent Iron Saturation (test code = 2502-3) 12 1550 [facility] Hospitalerum or plasma transferrin measurement (mass/volume)2019-09-26 04:10:00* Test Item Value Reference Range Interpretation Comments Transferrin (test code = 3034-6) 217 174-364 [facility] Hospitalerum or plasma ferritin measurement (mass/volume)2019-09-26 04:10:00* Test Item Value Reference Range Interpretation Comments Ferritin (test code = 2276-4) 344.26 21.81-274.66 [facility] Hospitalto Occult Lqmtp9672-34-32 10:11:00* Test Item Value Reference Range Interpretation Comments Stool Occult Blood (test code = 2335-8) [facility]GATIVE [facility] Atdte3061-07-74 10:11:00* Test Item Value Reference Range Interpretation Comments Stool Occult Blood (test code = 2335-8) [facility]IVE [facility] dgzowpbdz2624-58-27 07:30:00* Test Item Value Reference Range Interpretation Comments Stool Occult Blood (test code = 2335-8) POSITIVE NEGATIVE [facility] CenterCreatine Kinase RH8709-06-48 18:28:00* Test Item Value Reference Range Interpretation Comments Creatine Kinase MB (test code = 55359-1) 2.00 0-4.3 [facility] CenterTrminneapolis [facility] Y1274-93-70 18:28:00* Test Item Value Reference Range Interpretation Comments Troponin I (test code = 10344-1) < 0.05 0.0-0.40 [facility] CenterCreatine Kinase JO7139-31-04 18:28:00* Test Item Value Reference Range Interpretation Comments Creatine Kinase MB (test code = 56825-5) 2.00 0-4.3 [facility] CenterTropon [id number] 18:28:00* Test Item Value Reference Range Interpretation Comments Troponin I (test code = 48299-3) < 0.05 0.0-0.40 [facility] CenterCreatine Frqorh9940-40-34 18:20:00* Test Item Value Reference Range Interpretation Comments Creatine Kinase (test code = 2157-6) 161 30-200 [facility] CenterCreatine Ucqtqt1183-40-64 18:20:00* Test Item Value Reference Range Interpretation Comments Creatine Kinase (test code = 2157-6) 161 30-200 [facility]erum or plasma creatine kinase measurement (enzymatic activity/volume)2019-09-23 16:30:00* Test Item Value Reference Range Interpretation Comments Creatine Kinase (test code = 2157-6) 161 30-200 [facility] Hospitalerum or plasma creatine kinase MB measurement (mass/volume)2019-09-23 16:30:00* Test Item Value Reference Range Interpretation Comments Creatine Kinase MB (test code = 11881-7) 2.00 0-4.3 [facility] Hospitalerum or plasma troponin i.cardiac measurement (mass/volume)2019-09-23 16:30:00* Test Item Value Reference Range Interpretation Comments Troponin I (test code = 86331-7) < 0.05 0.0-0.40 [facility] Gdauc7660-37-04 20:56:00* Test Item Value Reference Range Interpretation Comments Magnesium Level (test code = 73279-8) 2.2 1.3-2.1 H [facility] Hpgpx6427-76-21 20:56:00* Test Item Value Reference Range Interpretation Comments Magnesium Level (test code = 11704-8) 2.2 1.3-2.1 H [facility] CenterUrine FHN0544-75-32 20:16:00* Test Item Value Reference Range Interpretation Comments Urine WBC (test code = 5821-4) 0-5 0-5 [facility] CenterUrine [id number] 20:16:00* Test Item Value Reference Range Interpretation Comments Urine RBC (test code = 55760-6) 0-5 0-5 [facility] CenterUrine Wuwocnoo3935-44-41 20:16:00* Test Item Value Reference Range Interpretation Comments Urine Bacteria (test code = 49126-5) PRESENT NONE [facility] CenterUrine Epithelial Edxeu1523-62-12 20:16:00 * Test Item Value Reference Range Interpretation Comments Urine Epithelial Cells (test code = 26060-4) FEW NONE [facility] CenterUrine [id number] 20:16:00* Test Item Value Reference Range Interpretation Comments Urine WBC (test code = 5821-4) 0-5 0-5 [facility] CenterUrine XPH4128-71-07 20:16:00* Test Item Value Reference Range Interpretation Comments Urine RBC (test code = 24315-8) 0-5 0-5 [facility] CenterUrine Ckntuoui9764-64-54 20:16:00* Test Item Value Reference Range Interpretation Comments Urine Bacteria (test code = 31551-2) PRESENT NONE [facility] CenterUrine Epithelial Jrblc3300-69-50 20:16:00 * Test Item Value Reference Range Interpretation Comments Urine Epithelial Cells (test code = 19749-2) FEW NONE [facility] CenterB-Type Natriuretic Icbfppz4355-02-00 20:07:00* Test Item Value Reference Range Interpretation Comments B-Type Natriuretic Peptide (test code = 24834-5) 293.0 0-100 H [facility] CenterB[facility] Natriuretic Eniwgvt9113-83-58 20:07:00* Test Item Value Reference Range Interpretation Comments B-Type Natriuretic Peptide (test code = 26619-4) 293.0 0-100 H [facility] CenterProthrombin Fyug0931-48-68 20:04:00* Test Item Value Reference Range Interpretation Comments Prothrombin Time (test code = 5902-2) 15.1 11.9-14.5 H [facility] CenterProthromb Time International Ratio 2019-09-22 20:04:00* Test Item Value Reference Range Interpretation Comments Prothromb Time International Ratio (test code = 6301-6) 1.13 Oral Anticoagulant Therapy INR Values:1. Low Intensity Therapy 1.5 - 2.02 . Moderate Intensity Therapy 2.0 - 3.03. High Intensity Therapy(1) 2.5 - 3. 54. High Intensity Therapy(2) 3.0 - 4.05. Panic Value INR > 5.0 [facility] CenterActivated Partial Thromboplast Time 2019-09-22 20:04:00* Test Item Value Reference Range Interpretation Comments Activated Partial Thromboplast Time (test code = 98057-6) 36.1 23.8-35.5 H [facility] CenterProthrombin Srnc5972-26-47 20:04:00* Test Item Value Reference Range Interpretation Comments Prothrombin Time (test code = 5902-2) 15.1 11.9-14.5 H [facility] CenterProthromb Time International Ratio 2019-09-22 20:04:00* Test Item Value Reference Range Interpretation Comments Prothromb Time International Ratio (test code = 6301-6) 1.13 Oral Anticoagulant Therapy INR Values:1. Low Intensity Therapy 1.5 - 2.02 . Moderate Intensity Therapy 2.0 - 3.03. High Intensity Therapy(1) 2.5 - 3. 54. High Intensity Therapy(2) 3.0 - 4.05. Panic Value INR > 5.0 [facility] CenterActivated Partial Thromboplast Time 2019-09-22 20:04:00* Test Item Value Reference Range Interpretation Comments Activated Partial Thromboplast Time (test code = 02552-9) 36.1 23.8-35.5 H [facility] CenterUrine Xaimk2337-96-87 19:49:00* Test Item Value Reference Range Interpretation Comments Urine Color (test code = 5778-6) YELLOW YELLOW [facility] CenterUrine Llvczen7374-59-34 19:49:00* Test Item Value Reference Range Interpretation Comments Urine Clarity (test code = 13486-7) CLEAR CLEAR [facility] CenterUrine Specific Oubktub6895-03-48 19:49:00 * Test Item Value Reference Range Interpretation Comments Urine Specific [place] (test code = 5811-5) 1.025 1.010-1.02 5 [facility] CenterUrine gD3940-03-39 19:49:00* Test Item Value Reference Range Interpretation Comments Urine pH (test code = 75217-3) 6 5-7 [facility] CenterUrine Leukocyte Yzcuqvuq3042-70-99 19:49:00* Test Item Value Reference Range Interpretation Comments Urine Leukocyte Esterase (test code = 5799-2) NEGATIVE NEGATIVE [facility] Trezczp4464-61-43 19:49:00* Test Item Value Reference Range Interpretation Comments Urine Nitrite (test code = 86747-8) NEGATIVE NEGATIVE [facility] CenterUrine Gmqtjhe5424-55-57 19:49:00* Test Item Value Reference Range Interpretation Comments Urine Protein (test code = 5804-0) 2+ NEGATIVE H [facility] CenterUrine Glucose (UA)2019-09-22 19:49:00* Test Item Value Reference Range Interpretation Comments Urine Glucose (UA) (test code = 2349-9) NEGATIVE NEGATIVE [facility] CenterUrine Etawagt1910-45-14 19:49:00* Test Item Value Reference Range Interpretation Comments Urine Ketones (test code = 16687-2) NEGATIVE NEGATIVE [facility] CenterUrine Znyswjfpthbb5080-33-47 19:49:00* Test Item Value Reference Range Interpretation Comments Urine Urobilinogen (test code = 61954-3) 0.2 0.2-1 [facility] CenterUrine Suffozxuk9700-99-66 19:49:00* Test Item Value Reference Range Interpretation Comments Urine Bilirubin (test code = 1978-6) NEGATIVE NEGATIVE [facility] CenterUrine Oadia3804-34-39 19:49:00* Test Item Value Reference Range Interpretation Comments Urine Blood (test code = 69491-4) NEGATIVE NEGATIVE [facility] CenterUrine Uurzq3585-93-40 19:49:00* Test Item Value Reference Range Interpretation Comments Urine Color (test code = 5778-6) YELLOW YELLOW [facility] CenterUrine Oznucyk0190-93-94 19:49:00* Test Item Value Reference Range Interpretation Comments Urine Clarity (test code = 06665-2) CLEAR CLEAR [facility] CenterUrine Specific Gtrteei3226-76-63 19:49:00 * Test Item Value Reference Range Interpretation Comments Urine Specific [place] (test code = 5811-5) 1.025 1.010-1.02 5 [facility] CenterUrine wZ6430-27-74 19:49:00* Test Item Value Reference Range Interpretation Comments Urine pH (test code = 86105-3) 6 5-7 [facility] CenterUrine Leukocyte Pgohmifp5964-05-02 19:49:00* Test Item Value Reference Range Interpretation Comments Urine Leukocyte Esterase (test code = 5799-2) NEGATIVE NEGATIVE [facility] CenterUrine Hvwcpib2563-31-35 19:49:00* Test Item Value Reference Range Interpretation Comments Urine Nitrite (test code = 19044-5) NEGATIVE NEGATIVE [facility] CenterUrine Twwigdm9439-41-30 19:49:00* Test Item Value Reference Range Interpretation Comments Urine Protein (test code = 5804-0) 2+ NEGATIVE H [facility] CenterUrine Glucose (UA)2019-09-22 19:49:00* Test Item Value Reference Range Interpretation Comments Urine Glucose (UA) (test code = 2349-9) NEGATIVE NEGATIVE [facility] CenterUrine Axoxdry9998-61-00 19:49:00* Test Item Value Reference Range Interpretation Comments Urine Ketones (test code = 68790-9) NEGATIVE NEGATIVE [facility] CenterUrine Eafrkturaiuj9818-16-15 19:49:00* Test Item Value Reference Range Interpretation Comments Urine Urobilinogen (test code = 47930-5) 0.2 0.2-1 [facility] CenterUrine Dypwrkrgu0564-56-21 19:49:00* Test Item Value Reference Range Interpretation Comments Urine Bilirubin (test code = 1978-6) NEGATIVE NEGATIVE [facility] CenterUrine Cosgo9942-89-28 19:49:00* Test Item Value Reference Range Interpretation Comments Urine Blood (test code = 32114-2) NEGATIVE NEGATIVE [facility] CenterProthrombin time (PT) in platelet poor plasma by coagulation ibtcm8979-22-10 18:05:00* Test Item Value Reference Range Interpretation Comments Prothrombin Time (test code = 5902-2) 15.1 11.9-14.5 [facility] CenterINR in Platelet poor plasma by Coagulation tshzk0787-68-14 18:05:00* Test Item Value Reference Range Interpretation Comments Prothromb Time International Ratio (test code = 6301-6) 1.13 Oral Anticoagulant Therapy INR Values:1. Low Intensity Therapy 1.5 - 2.02 . Moderate Intensity Therapy 2.0 - 3.03. High Intensity Therapy(1) 2.5 - 3. 54. High Intensity Therapy(2) 3.0 - 4.05. Panic Value INR > 5.0 [facility] CenterActivated partial thromboplastin time (aPTT) in platelet poor plasma by coagulation ugvok8886-97-67 18:05:00* Test Item Value Reference Range Interpretation Comments Activated Partial Thromboplast Time (test code = 01062-3) 36.1 23.8-35.5 [facility]erum or plasma magnesium measurement (mass/volume)2019-09-22 18:05:00* Test Item Value Reference Range Interpretation Comments Magnesium Level (test code = 47811-4) 2.2 1.3-2.1 [facility] CenterBNP Tea-oQoo2565-81-11 18:05:00* Test Item Value Reference Range Interpretation Comments B-Type Natriuretic Peptide (test code = 34552-5) 293.0 0-100 [facility] CenterCHEST SINGLE (PORTABLE)2019-09-22 17:39:00 [facility] [address] [place] [address] Patient Name: ALEX PETERS MR #: [id number] : 1935 Age/Sex: 84/M Req #: [id number] Adm Physician: Ordered by: JEREMIAH BARBOZA NP Report #: [id number] Location: ER Room/Bed: Procedure: [id number] DX/ CHEST SINGLE (PORTABLE) Exam Date: 09/22/19 Exam Dillan e: 1730 REPORT STATUS: Signed EX AMINATION: CHEST SINGLE (PORTABLE) COMPARISON: Chest 07/03/2019, CT ch est 06/14/2019 INDICATION: Blood transfusion DISCUSSION: Frontal vi ew of the chest obtained at 1732 hours. HEART AND MEDIASTINUM: There is ne w significant fullness of the right hilum compared to the most recent chest x- ray. However, it is similar morphology to the family protection specialist image from the CT of the c hest. The heart remains enlarged. Enlarged pulmonary arteries were identified on previous exam. LINES: None. LUNGS: Pulmonary hyperinflation sugg estive of small airways disease. Wispy bands of subsegmental atelectasis in th e right upper lobe and lingular are grossly stable. No infiltrates. PLEUR A: Small right pleural effusion is stable. No pneumothorax BONES AND SOFT TISSUES: 2 surgical anchors in the left humeral head. Surgical anchor in the right humeral head is not imaged. The soft tissues are normal. IMPRESSIO N: Prominence of the right hilum is likely secondary to pulmonary artery en largement and cardiomegaly. Stable small right pleural effusion. Stable pulmo nary hyperinflation. Signed by: Dr. Ned Akbar MD on 09/22/2019 5 :44 PM Dictated By: NED AKBAR MD 43 Transcribed By: CALVIN on 09/22/191743 COPY TO: JEREMIAH BARBOZA NP Urine color acgrxzipuhggq5959-81-20 15:28:00* Test Item Value Reference Range Interpretation Comments Urine Color (test code = 5778-6) YELLOW YELLOW [facility] CenterUrine ihflkfg0999-84-89 15:28:00* Test Item Value Reference Range Interpretation Comments Urine Clarity (test code = 04121-2) CLEAR CLEAR [facility] Hospitalpecific gravity of Urine by Test strip 2019-09-22 15:28:00* Test Item Value Reference Range Interpretation Comments Urine Specific [place] (test code = 5811-5) 1.025 1.010-1.02 5 [facility] CenterUrine pH measurement by automated test jlfvh9129-63-60 15:28:00* Test Item Value Reference Range Interpretation Comments Urine pH (test code = 78015-7) 6 5-7 [facility] CenterUrine leukocyte esterase detection by zwuuekrx4021-59-85 15:28:00* Test Item Value Reference Range Interpretation Comments Urine Leukocyte Esterase (test code = 5799-2) NEGATIVE NEGATIVE [facility] CenterUrine nitrite nsnuymdfd0372-24-21 15:28:00* Test Item Value Reference Range Interpretation Comments Urine Nitrite (test code = 64115-8) NEGATIVE NEGATIVE [facility] CenterUrine protein measurement by test strip (mass/volume)2019-09-22 15:28:00* Test Item Value Reference Range Interpretation Comments Urine Protein (test code = 5804-0) 2+ NEGATIVE [facility] CenterUrine glucose jbebtmchs8144-73-33 15:28:00* Test Item Value Reference Range Interpretation Comments Urine Glucose (UA) (test code = 2349-9) NEGATIVE NEGATIVE [facility] CenterUrine ketones detection by automated test gallp1092-73-54 15:28:00* Test Item Value Reference Range Interpretation Comments Urine Ketones (test code = 15693-3) NEGATIVE NEGATIVE [facility] CenterUrine urobilinogen measurement by test strip (mass/volume)2019-09-22 15:28:00* Test Item Value Reference Range Interpretation Comments Urine Urobilinogen (test code = 09130-9) 0.2 0.2-1 [facility] CenterUrine total bilirubin measurement (mass/volume)2019-09-22 15:28:00* Test Item Value Reference Range Interpretation Comments Urine Bilirubin (test code = 1978-6) NEGATIVE NEGATIVE [facility] CenterUrine erythrocytes rcdqvyxpy4168-02-61 15:28:00* Test Item Value Reference Range Interpretation Comments Urine Blood (test code = 84022-2) NEGATIVE NEGATIVE [facility] CenterAutomated urine sediment leukocyte count by microscopy (number/high power field)2019-09-22 15:28:00* Test Item Value Reference Range Interpretation Comments Urine WBC (test code = 5821-4) 0-5 0-5 [facility] CenterErythrocytes detection in urine sediment by light fxacpdqpyh0900-27-92 15:28:00* Test Item Value Reference Range Interpretation Comments Urine RBC (test code = 72695-5) 0-5 0-5 [facility] CenterBacteria detection in urine sediment by light plsyxjpbqu5519-22-72 15:28:00* Test Item Value Reference Range Interpretation Comments Urine Bacteria (test code = 25423-4) PRESENT NONE [facility] CenterEpithelial cells detection in urine sediment by light crjnlhplcw2492-11-00 15:28:00* Test Item Value Reference Range Interpretation Comments Urine Epithelial Cells (test code = 60963-0) FEW NONE [facility] CenterJAK2 Mutation (PCR)2019-07-12 06:24:00* Test Item Value Reference Range Interpretation Comments JAK2 Mutation (PCR) (test code = 79065-6) NEGATIVE [facility] CenterJAK2 V617F Interpretation/Report 2019-07-12 06:24:00* Test Item Value Reference Range Interpretation Comments JAK2 V617F Interpretation/Report (test code = 72482-9) The JAK2 V617F mutation is not detected in the provided specimen of this individual. This result does not rule out the presence of the JAK2 mutation at a level below the sensitivity of detection of this assay, or the presence of other mutations within JAK2 not detected by this assay. [facility] CenterJAK2 V617F Vtdcugzi2845-54-07 06:24:00* Test Item Value Reference Range Interpretation Comments JAK2 V617F Specimen (test code = 79645-5) Background: The Quantitative Real- Time PCR assay detects V617F mutation (c.1849 G>T) observed in approximately 95% polycythemia vera (PV), 55% essential thrombocythemia (ET) and 55% primary myelofibrosis (PMF). It is also infrequently present (3-5%) in myelodysplastic syndrome, chronic myelomonocytic leukemia, and other atypical chronic myeloid disorders. The results should be interpreted in the context of all clinical and laboratory findings. No therapeutic action should be taken based solely on these results. This assay detects only the JAK2 V617F point mutation. Other mutations that may occur in the JAK2 gene will not be detected. [facility] CenterJAK2 V617F Reviewed Ui1032-80-05 06:24:00 * Test Item Value Reference Range Interpretation Comments JAK2 V617F Reviewed By (test code = 63093-1) Director Review: Yamila Hamilton, PhD, [facility] Director, Molecular Genetics [facility] [place], [place] [facility] [address] [place] [address] Dir: Willem Beauchamp MD [facility] CenterJAK2 Mutation (PCR)2019-07-12 06:24:00* Test Item Value Reference Range Interpretation Comments JAK2 Mutation (PCR) (test code = 62492-0) NEGATIVE [facility] CenterJAK2 V617F Interpretation/Report 2019-07-12 06:24:00* Test Item Value Reference Range Interpretation Comments JAK2 V617F Interpretation/Report (test code = 87270-4) The JAK2 V617F mutation is not detected in the provided specimen of this individual. This result does not rule out the presence of the JAK2 mutation at a level below the sensitivity of detection of this assay, or the presence of other mutations within JAK2 not detected by this assay. [facility] CenterJAK2 V617F Qmhjrnbv8272-32-30 06:24:00* Test Item Value Reference Range Interpretation Comments JAK2 V617F Specimen (test code = 92703-1) Background: The Quantitative Real- Time PCR assay detects V617F mutation (c.1849 G>T) observed in approximately 95% polycythemia vera (PV), 55% essential thrombocythemia (ET) and 55% primary myelofibrosis (PMF). It is also infrequently present (3-5%) in myelodysplastic syndrome, chronic myelomonocytic leukemia, and other atypical chronic myeloid disorders. The results should be interpreted in the context of all clinical and laboratory findings. No therapeutic action should be taken based solely on these results. This assay detects only the JAK2 V617F point mutation. Other mutations that may occur in the JAK2 gene will not be detected. [facility] CenterJAK2 V617F Reviewed Zj3970-06-65 06:24:00 * Test Item Value Reference Range Interpretation Comments JAK2 V617F Reviewed By (test code = 34002-3) Director Review: Yamila Hamilton, PhD, [facility] Director, Molecular Genetics [facility] [place], [place] [facility] [address] [place] [address] Dir: Willem Beauchamp MD [facility] CenterErythropoietin2019-10-28 21:55:00* Test Item Value Reference Range Interpretation Comments Erythropoietin (test code = 77723-4) 26.4 2.6-18.5 H [facility] [place] DxI 800 Immunoassay SystemValues obtained with different assay methods or kits cannotbe used interchangeably. Results cannot be interpret ed asabsolute evidence of the presence or absence of malignantdisease.Performed at: [facility] [address] [id number] Direct or: Kurtis Alvarez MD, Phone: [phone] Medical CenterErythropoietin2019-10-28 21:55:00* Test Item Value Reference Range Interpretation Comments Erythropoietin (test code = 60511-7) 26.4 2.6-18.5 H [facility] [employer] DxI 800 Immunoassay SystemValues obtained with different assay methods or kits cannotbe used interchangeably. Results cannot be interpret ed asabsolute evidence of the presence or absence of malignantdisease.Performed at: [address] [id number] Direct or: Kurtis Alvarez MD, Phone: [phone] Medical CenterBlood Sazjmmz1767-84-91 13:52:00* Test Item Value Reference Range Interpretation Comments Blood Culture (test code = 06720109) NO GROWTH AFTER 5 DAYS, FINAL REPORT [facility] Fkfleyq6645-46-55 13:52:00* Test Item Value Reference Range Interpretation Comments Blood Culture (test code = 00661013) NO GROWTH AFTER 5 DAYS, FINAL REPORT [facility] CenterBedside Wpfvtbt7882-60-45 11:31:00* Test Item Value Reference Range Interpretation Comments Bedside Glucose (test code = 01374-6) 89 70-120 Meter ID: [id number] [facility] HospitalDifferent[facility] Total Cells Iccocar5624-87-76 07:09:00* Test Item Value Reference Range Interpretation Comments Differential Total Cells Counted (test code = Differyvrose tial Total Cells Counted) 100 [facility] CenterNeutrophils % (Manual)2019-07-08 07:09:00 * Test Item Value Reference Range Interpretation Comments Neutrophils % (Manual) (test code = 33267-8) 58 40-74 [facility] CenterLymphocytes % (Manual)2019-07-08 07:09:00 * Test Item Value Reference Range Interpretation Comments Lymphocytes % (Manual) (test code = 737-7) 37 19-48 [facility] CenterMonocytes % (Manual)2019-07-08 07:09:00* Test Item Value Reference Range Interpretation Comments Monocytes % (Manual) (test code = 744-3) 3 3.4-9.0 L [facility] CenterEosinophils % (Manual)2019-07-08 07:09:00 * Test Item Value Reference Range Interpretation Comments Eosinophils % (Manual) (test code = 714-6) 1 0-7 [facility] CenterReactive Scwigjepcwm9021-71-06 07:09:00* Test Item Value Reference Range Interpretation Comments Reactive Lymphocytes (test code = 87088-7) 1 [facility] CenterPlatelet Cpllwcol8061-84-92 07:09:00* Test Item Value Reference Range Interpretation Comments Platelet Estimate (test code = 49319-0) ADEQUATE [facility] CenterPlatelet Morphology Jnwxfqg5872-28-13 07:09:00* Test Item Value Reference Range Interpretation Comments Platelet Morphology Comment (test code = 82112-0) NORMAL [facility] CenterRed Cell Morphology Sxgzgzk9720-29-55 07:09:00* Test Item Value Reference Range Interpretation Comments Red Cell Morphology Comment (test code = 6742-1) NORMAL [facility] CenterEosinophils % (Manual)2019-07-08 07:09:00 * Test Item Value Reference Range Interpretation Comments Eosinophils % (Manual) (test code = 714-6) 1 0-7 [facility] CenterReactive Ohdvyouqvfp2994-89-92 07:09:00* Test Item Value Reference Range Interpretation Comments Reactive Lymphocytes (test code = 12509-3) 1 [facility] CenterEosinophils % (Manual)2019-07-08 07:09:00 * Test Item Value Reference Range Interpretation Comments Eosinophils % (Manual) (test code = 714-6) 1 0-7 [facility] CenterReactive Xfppcujageu0810-52-58 07:09:00* Test Item Value Reference Range Interpretation Comments Reactive Lymphocytes (test code = 50431-0) 1 [facility] Hospitalodium Zirgu1306-26-49 05:37:00* Test Item Value Reference Range Interpretation Comments Sodium Level (test code = 2951-2) 139 136-145 [facility] CenterPotassium Rvypb2555-54-26 05:37:00* Test Item Value Reference Range Interpretation Comments Potassium Level (test code = 2823-3) 3.7 3.5-5.1 [facility] CenterChloride Rduhl3514-54-19 05:37:00* Test Item Value Reference Range Interpretation Comments Chloride Level (test code = 2075-0) 106 98-107 [facility] CenterCarbon Dioxide Czakv5448-53-65 05:37:00* Test Item Value Reference Range Interpretation Comments Carbon Dioxide Level (test code = 2028-9) 22 22-29 [facility] CenterAnion Frd0318-53-68 05:37:00* Test Item Value Reference Range Interpretation Comments Anion Gap (test code = 19898-6) 14.7 8-16 [facility] CenterBlood Urea Qpfmfjoo2687-97-72 05:37:00* Test Item Value Reference Range Interpretation Comments Blood Urea Nitrogen (test code = 3094-0) 19 7-26 [facility] CenterCreatinine2019-10-27 05:37:00* Test Item Value Reference Range Interpretation Comments Creatinine (test code = 2160-0) 0.97 0.72-1.25 [facility] CenterBUN/Creatinine Klqbu4530-95-64 05:37:00* Test Item Value Reference Range Interpretation Comments BUN/Creatinine Ratio (test code = 3097-3) 20 - [facility] CenterEstimat Glomerular Filtration Rate 2019-07-08 05:37:00* Test Item Value Reference Range Interpretation Comments Estimat Glomerular Filtration Rate (test code = 312625594) > 60 >60 Ranges were taken from the National Kidney Disease Education Program and the [facility] Kidney Foundation literature.Reference ranges:60 or greater: Kfrhuu36-45 ( for 3 consecutive months): Chronic kidney disease 15 or less: Kidney failureDallas Medical CenterGlucose Chiir5319-98-38 05:37:00* Test Item Value Reference Range Interpretation Comments Glucose Level (test code = IFP1249) 88 74-118 [facility] CenterCalcium Itgby4134-87-99 05:37:00* Test Item Value Reference Range Interpretation Comments Calcium Level (test code = 05628-8) 9.3 8.4-10.2 [facility] CenterPhosphorus Qsxmu0183-09-67 05:27:00* Test Item Value Reference Range Interpretation Comments Phosphorus Level (test code = FIW2128) 2.1 2.3-4.7 L [facility] CenterMagnesium Bbkdl6179-62-94 05:27:00* Test Item Value Reference Range Interpretation Comments Magnesium Level (test code = 82247-9) 2.0 1.3-2.1 [facility] CenterPhosphorus Kgppr2186-18-39 05:27:00* Test Item Value Reference Range Interpretation Comments Phosphorus Level (test code = BNC2054) 2.1 2.3-4.7 L [facility] CenterPhosphorus Fxcua0679-29-40 05:27:00* Test Item Value Reference Range Interpretation Comments Phosphorus Level (test code = ZMD9159) 2.1 2.3-4.7 L [facility] CenterWhite Blood Wjzvz1572-43-28 05:16:00* Test Item Value Reference Range Interpretation Comments White Blood Count (test code = 6690-2) 1.84 4.8-10.8 LL Results called to LISA VALLADARES RN at 0514 on 07/08/19 by Felipe Shepard. RB OK.Thi s test has been rerun and double checked for accuracy.[facility] CenterRed Blood Hcapa1829-00-90 05:16:00* Test Item Value Reference Range Interpretation Comments Red Blood Count (test code = 789-8) 3.20 4.3-5.7 L [facility] CenterHemoglobin2019-10-27 05:16:00* Test Item Value Reference Range Interpretation Comments Hemoglobin (test code = 57690-8) 8.9 14.0-18.0 L [facility] CenterHematocrit2019-10-27 05:16:00* Test Item Value Reference Range Interpretation Comments Hematocrit (test code = 4544-3) 28.0 38.2-49.6 L [facility] CenterMean Corpuscular Itqbwj6990-73-95 05:16:00* Test Item Value Reference Range Interpretation Comments Mean Corpuscular Volume (test code = 787-2) 87.5 81-99 [facility] CenterMean Corpuscular Qdulnbyacu6375-91-28 05:16:00* Test Item Value Reference Range Interpretation Comments Mean Corpuscular Hemoglobin (test code = 785-6) 27.8 28-32 L [facility] CenterMean Corpuscular Hemoglobin Concent 2019-07-08 05:16:00* Test Item Value Reference Range Interpretation Comments Mean Corpuscular Hemoglobin Concent (test code = 786-4) 31.8 31-35 [facility] CenterRed Cell Distribution Dzcij6847-26-43 05:16:00* Test Item Value Reference Range Interpretation Comments Red Cell Distribution Width (test code = 53235-7) 19.5 11.7 -14.4 H [facility] CenterPlatelet Iabrd5682-58-41 05:16:00* Test Item Value Reference Range Interpretation Comments Platelet Count (test code = 777-3) 309 140-360 [facility] CenterNeutrophils (%) (Auto)2019-07-08 05:16:00 * Test Item Value Reference Range Interpretation Comments Neutrophils (%) (Auto) (test code = 99057-5) 57.2 38.7-80.0 [facility] CenterLymphocytes (%) (Auto)2019-07-08 05:16:00 * Test Item Value Reference Range Interpretation Comments Lymphocytes (%) (Auto) (test code = 736-9) 36.4 18.0-39.1 [facility] CenterMonocytes (%) (Auto)2019-07-08 05:16:00* Test Item Value Reference Range Interpretation Comments Monocytes (%) (Auto) (test code = 5905-5) 5.4 4.4-11.3 [facility] CenterEosinophils (%) (Auto)2019-07-08 05:16:00 * Test Item Value Reference Range Interpretation Comments Eosinophils (%) (Auto) (test code = 713-8) 0.5 0.0-6.0 [facility] CenterBasophils (%) (Auto)2019-07-08 05:16:00* Test Item Value Reference Range Interpretation Comments Basophils (%) (Auto) (test code = 706-2) 0.0 0.0-1.0 [facility] CenterIM GRANULOCYTES %2019-07-08 05:16:00* Test Item Value Reference Range Interpretation Comments IM GRANULOCYTES % (test code = IM GRANULOCYTES %) 0.5 0.0- 1.0 [facility] CenterNeutrophils # (Auto)2019-07-08 05:16:00* Test Item Value Reference Range Interpretation Comments Neutrophils # (Auto) (test code = 751-8) 1.1 2.1-6.9 L [facility] CenterLymphocytes # (Auto)2019-07-08 05:16:00* Test Item Value Reference Range Interpretation Comments Lymphocytes # (Auto) (test code = 63288-0) 0.7 1.0-3.2 L [facility] CenterMonocytes # (Auto)2019-07-08 05:16:00* Test Item Value Reference Range Interpretation Comments Monocytes # (Auto) (test code = 742-7) 0.1 0.2-0.8 L [facility] CenterEosinophils # (Auto)2019-07-08 05:16:00* Test Item Value Reference Range Interpretation Comments Eosinophils # (Auto) (test code = 711-2) 0.0 0.0-0.4 [facility] CenterBasophils # (Auto)2019-07-08 05:16:00* Test Item Value Reference Range Interpretation Comments Basophils # (Auto) (test code = 704-7) 0.0 0.0-0.1 [facility] CenterAbsolute Immature Granulocyte (auto 2019-07-08 05:16:00* Test Item Value Reference Range Interpretation Comments Absolute Immature Granulocyte (auto (joão t code = Absolute Immature Granulocyte (auto) 0.01 0-0.1 [facility] CenterManual blood eosinophil count as percentage of total hvxdcdiwss5121-45-89 04:40:00* Test Item Value Reference Range Interpretation Comments Eosinophils % (Manual) (test code = 714-6) 1 0-7 [facility] CenterBlood lymphocytes variant count (number/volume)2019-07-08 04:40:00* Test Item Value Reference Range Interpretation Comments Reactive Lymphocytes (test code = 54137-2) 1 [facility] CenterPhosphorus qupqspekmjb4265-15-24 04:30:00 * Test Item Value Reference Range Interpretation Comments Phosphorus Level (test code = KJB0103) 2.1 2.3-4.7 [facility] CenterBlood Quafppk1833-88-12 13:52:00* Test Item Value Reference Range Interpretation Comments Blood Culture (test code = 77834333) NO GROWTH AFTER 72 HOURS [facility] CenterBand Neutrophils %2019-07-06 09:43:00* Test Item Value Reference Range Interpretation Comments Band Neutrophils % (test code = 764-1) 1 [facility] CenterBand Neutrophils %2019-07-06 09:43:00* Test Item Value Reference Range Interpretation Comments Band Neutrophils % (test code = 764-1) 1 [facility] CenterBand Neutrophils %2019-07-06 09:43:00* Test Item Value Reference Range Interpretation Comments Band Neutrophils % (test code = 764-1) 1 [facility] CenterClostridium Difficile Toxin A & B 2019-07-06 09:39:00* Test Item Value Reference Range Interpretation Comments Clostridium Difficile Toxin A & B (test code = 782075174) POSI TIVE NEGATIVE H Results called to JOSÉ RAYMOND at 0937 on 07/06/19 by Citlalli Hurst. RB [place]. Results called to [facility] in infection control at 0937 on 07/06/19 by Regino Hurst.Testing on stool aspirate specimens is outside key entry operator claims si nce specimen type not validated on this assay.[facility] CenterClostridium Difficile Toxin A & B2726-58-10 09:39:00* Test Item Value Reference Range Interpretation Comments Clostridium Difficile Toxin A & B (test code = 387800392) POSI TIVE NEGATIVE H Results called to JOSÉ RAYMOND at 0937 on 07/06/19 by Citlalli Hurst. RB [place]. Results called to [facility] in infection control at 0937 on 07/06/19 by Regino Hurst.Testing on stool aspirate specimens is outside key entry operator claims si nce specimen type not validated on this assay.[facility] CenterClostridium Difficile Toxin A & W9248-88-64 09:39:00* Test Item Value Reference Range Interpretation Comments Clostridium Difficile Toxin A & B (test code = 349425890) POSI TIVE NEGATIVE H Results called to JOSÉ RAYMOND at 0937 on 07/06/19 by Citlalli Hurst. RB [place]. Results called to [facility] in infection control at 0937 on 07/06/19 by Regino Hurst.Testing on stool aspirate specimens is outside key entry operator claims si nce specimen type not validated on this assay.[facility] CenterManual blood band neutrophils form/100 pwjqjilgvg6580-23-55 06:10:00* Test Item Value Reference Range Interpretation Comments Band Neutrophils % (test code = 764-1) 1 [facility] Hospitalerum or plasma erythropoietin (EPO) measurement (units/volume)2019-07-06 06:10:00* Test Item Value Reference Range Interpretation Comments Erythropoietin (test code = 38397-4) 26.4 2.6-18.5 Edgar NewACT DxI 800 Immunoassay SystemValues obtained with different assay methods or kits cannotbe used interchangeably. Results cannot be interpret ed asabsolute evidence of the presence or absence of malignantdisease.Performed at: [address] [id number] Direct or: Kurtis Alvarez MD, Phone: [phone] [facility] Clear [facility] Hospitaltool Lactoferrin (LAB)2019-07-05 21:12:00* Test Item Value Reference Range Interpretation Comments Stool Lactoferrin (LAB) (test code = 85905-0) POSITIVE NEGATIVE H Testing on stool aspirate specimens is outside key entry operator claims since specime n type not validated on this assay.[facility] Lactoferrin (LAB)2019-07-05 21:12:00* Test Item Value Reference Range Interpretation Comments Stool Lactoferrin (LAB) (test code = 26870-5) POSITIVE NEGATIVE H Testing on stool aspirate specimens is outside key entry operator claims since specime n type not validated on this assay.[facility]2019-07-05 21:12:00* Test Item Value Reference Range Interpretation Comments Stool Lactoferrin (LAB) (test code = 35587-3) POSITIVE NEGATIVE H Testing on stool aspirate specimens is outside key entry operator claims since specime n type not validated on this assay.[facility] Hospitaltool lactoferrin gnzrizlsr2253-45-68 19:50:00* Test Item Value Reference Range Interpretation Comments Stool Lactoferrin (LAB) (test code = 62611-7) POSITIVE NEGATIVE Testing on stool aspirate specimens is outside key entry operator claims since specime n type not validated on this assay.[facility] Clostridium difficile A and B toxin qydbh9050-26-40 19:50:00* Test Item Value Reference Range Interpretation Comments Clostridium Difficile Toxin A & B (test code = 616030353) POSI TIVE NEGATIVE Results called to JOSÉ RAYMOND at 0937 on 07/06/19 by Citlalli Hurst. RB [place]. Results called to [facility] in infection control at 0937 on 07/06/19 by Regino Hurst.Testing on stool aspirate specimens is outside key entry operator claims si nce specimen type not validated on this assay.[facility] CenterProcalcitonin2019-10-24 16:45:00* Test Item Value Reference Range Interpretation Comments Procalcitonin (test code = 553911773) 0.11 0.00-0.08 H A procalcitonin (PCT) level above 2.0 ng/mL on the firstday of ICU admission is associated with a high risk forprogression to severe sepsis and/or septic shock. A PCT level below 0.5 ng/mL on the first day of ICUadmission is associated with a low risk for progressionto severe sepsis and/or septic shock.Note: Concentrati ons <0.5 ng/mL do not exclude aninfection, on account of localized infections (withoutsystemic signs) which can be associated with such lowconcentrations, or a systemic infection in its initialstages (<6 hours).Furthermore, increased procalcitonin can occur withoutinfection. PCT concentrations between 0.5 and 2.0 ng/mLshould be interpreted taking into account the patient'shistory. It is recommended to retest PCT within 6-24 hoursif any concentrations <2 ng/mL are obtained.Performed at: [facility] LabCo [address] [place] [id number] Director: Yamil Enriquez MD, Phone: [phone] Medical CenterProcalcitonin2019-10-24 16:45:00* Test Item Value Reference Range Interpretation Comments Procalcitonin (test code = 608362071) 0.11 0.00-0.08 H A procalcitonin (PCT) level above 2.0 ng/mL on the firstday of ICU admission is associated with a high risk forprogression to severe sepsis and/or septic shock. A PCT level below 0.5 ng/mL on the first day of ICUadmission is associated with a low risk for progressionto severe sepsis and/or septic shock.Note: Concentrati ons <0.5 ng/mL do not exclude aninfection, on account of localized infections (withoutsystemic signs) which can be associated with such lowconcentrations, or a systemic infection in its initialstages (<6 hours).Furthermore, increased procalcitonin can occur withoutinfection. PCT concentrations between 0.5 and 2.0 ng/mLshould be interpreted taking into account the patient'shistory. It is recommended to retest PCT within 6-24 hoursif any concentrations <2 ng/mL are obtained.Performed at: [facility] Lab[address] [id number] Director: Yamil Enriquez MD, Phone: [phone] Medical CenterProcalcitonin2019-10-24 16:45:00* Test Item Value Reference Range Interpretation Comments Procalcitonin (test code = 226111155) 0.11 0.00-0.08 H A procalcitonin (PCT) level above 2.0 ng/mL on the firstday of ICU admission is associated with a high risk forprogression to severe sepsis and/or septic shock. A PCT level below 0.5 ng/mL on the first day of ICUadmission is associated with a low risk for progressionto severe sepsis and/or septic shock.Note: Concentrati ons <0.5 ng/mL do not exclude aninfection, on account of localized infections (withoutsystemic signs) which can be associated with such lowconcentrations, or a systemic infection in its initialstages (<6 hours).Furthermore, increased procalcitonin can occur withoutinfection. PCT concentrations between 0.5 and 2.0 ng/mLshould be interpreted taking into account the patient'shistory. It is recommended to retest PCT within 6-24 hoursif any concentrations <2 ng/mL are obtained.Performed at: [facility] [place] [address] [place], [place] [id number] Director: Yamil Enriquez MD, Phone: [phone] Medical CenterBlood or tissue JAK2 gene p.V617F detection by molecular genetics yjijtv5911-42-99 05:00:00* Test Item Value Reference Range Interpretation Comments JAK2 Mutation (PCR) (test code = 55492-4) NEGATIVE [facility] CenterBlood or tissue JAK2 gene p.V617F mutant/normal by molecular genetics wdzekp3303-64-67 05:00:00* Test Item Value Reference Range Interpretation Comments JAK2 V617F Interpretation/Report (test code = 67561-0) See Comment The JAK2 V617F mutation is not detected in the provided specimen of this individ ual. This result does not rule out the presence of the JAK2 mutation at a level below the sensitivity of detection of this assay, or the presence of other mutat ions within JAK2 not detected by this assay.[facility] CenterJAK2 V617F mutation kiuyltxio2232-08-06 05:00:00* Test Item Value Reference Range Interpretation Comments JAK2 V617F Specimen (test code = 66322-4) See Comment Background: The Quantitative Real-Time PCR assay detects V617F mutation (c.1849 G>T) observed in approximately 95% polycythemia vera (PV), 55% essential thrombocythemia (ET) and 55% primary myelofibrosis (PMF). It is also infrequently present (3-5%) in myelodysplastic syndrome, chronic myelomonocytic leukemia, and other atypical chronic myeloid disorders. The results should be interpreted in the context of all clinical and laboratory findings. No therapeutic action should be taken based solely on these results. This assay detects only the JAK2 V617F point mutation. Other mutations that may occur in the JAK2 gene will not be detected.[facility] CenterJAK2 V617F mutation ieklschby4866-71-52 05:00:00* Test Item Value Reference Range Interpretation Comments JAK2 V617F Reviewed By (test code = 87191-2) See Comment Director Review:Yamila Hamilton, PhD, [facility] Director, Molecular GeneticsLabCorp Berger Hospital MolecularBiology and PathologyResGallup Indian Medical Center [phone] [id number] [facility] [place] [address]Qko: Willem Beauchamp MD [facility] CenterVancomycin Level Djqdpf8637-83-02 15:27:00* Test Item Value Reference Range Interpretation Comments Vancomycin Level Trough (test code = 4092-3) 13.5 5.0-10.0 Results repeated and called to UMAIR COLLAZO RN at 1524 on 07/04/19 by Suzanne Greco x. Read back and verified.[facility] CenterVancomycin Level Uzjjoi7095-82-74 15:27:00* Test Item Value Reference Range Interpretation Comments Vancomycin Level Trough (test code = 4092-3) 13.5 5.0-10.0 HH Results repeated and called to UMAIR COLLAZO RN at 1524 on 07/04/19 by Suzanne gandara Read back and verified.[facility] CenterVancomycin Level Vcrchh5703-36-94 15:27:00* Test Item Value Reference Range Interpretation Comments Vancomycin Level Trough (test code = 4092-3) 13.5 5.0-10.0 Results repeated and called to UMAIR COLLAZO RN at 1524 on 07/04/19 by Suzanne gandara Read back and verified.[facility] Hospitalerum or plasma trough vancomycin level at trough (mass/volume)2019-07-04 14:50:00* Test Item Value Reference Range Interpretation Comments Vancomycin Level Trough (test code = 4092-3) 13.5 5.0-10.0 Results repeated and called to UAMIR COLLAZO RN at 1524 on 07/04/19 by Suzanne gandara Read back and verified.[facility] CenterProcalcitonin (PCT) ceszf8707-40-69 14:50:00* Test Item Value Reference Range Interpretation Comments Procalcitonin (test code = 266957308) 0.11 0.00-0.08 A procalcitonin (PCT) level above 2.0 ng/mL on the firstday of ICU admission is associated with a high risk forprogression to severe sepsis and/or septic shock. A PCT level below 0.5 ng/mL on the first day of ICUadmission is associated with a low risk for progressionto severe sepsis and/or septic shock.Note: Concentrati ons <0.5 ng/mL do not exclude aninfection, on account of localized infections (withoutsystemic signs) which can be associated with such lowconcentrations, or a systemic infection in its initialstages (<6 hours).Furthermore, increased procalcitonin can occur withoutinfection. PCT concentrations between 0.5 and 2.0 ng/mLshould be interpreted taking into account the patient'shistory. It is recommended to retest PCT within 6-24 hoursif any concentrations <2 ng/mL are obtained.Performed at: [facility] [address] [id number] Director: Yamil Enriquez MD, Phone: [phone] Hospital at Westlake Medical Centerasia2019-10-23 07:11:00* Test Item Value Reference Range Interpretation Comments Hypochromasia (test code = 728-6) [facility] 07:11:00* Test Item Value Reference Range Interpretation Comments Hypochromasia (test code = 728-6) [facility]IGHT [facility]2019-10-23 07:11:00* Test Item Value Reference Range Interpretation Comments Hypochromasia (test code = 728-6) SLIGHT [facility] CenterTotal Elfllgmvw0486-19-50 06:23:00* Test Item Value Reference Range Interpretation Comments Total Bilirubin (test code = 1975-2) 0.8 0.2-1.2 [facility] CenterAspartate Amino Transf (AST/SGOT) 2019-07-04 06:23:00* Test Item Value Reference Range Interpretation Comments Aspartate Amino Transf (AST/SGOT) (test code = Aspartate Amino Transf (AST/SGOT)) 36 5-34 H [facility] CenterAlanine Aminotransferase (ALT/SGPT) 2019-07-04 06:23:00* Test Item Value Reference Range Interpretation Comments Alanine Aminotransferase (ALT/SGPT) (test code = 1742-6) 19 0-55 [facility] CenterTotal Iobjmny7294-59-42 06:23:00* Test Item Value Reference Range Interpretation Comments Total Protein (test code = 2885-2) 6.7 6.5-8.1 [facility] CenterAlbumin2019-10-23 06:23:00* Test Item Value Reference Range Interpretation Comments Albumin (test code = 1751-7) 3.3 3.5-5.0 L [facility] CenterGlobulin2019-10-23 06:23:00* Test Item Value Reference Range Interpretation Comments Globulin (test code = 25284-0) 3.4 2.3-3.5 [facility] CenterAlbumin/Globulin Fufkl7322-17-86 06:23:00 * Test Item Value Reference Range Interpretation Comments Albumin/Globulin Ratio (test code = 1759-0) 1.0 0.8-2.0 [facility] CenterAlkaline Qwlmrhsmzzt7507-17-49 06:23:00* Test Item Value Reference Range Interpretation Comments Alkaline Phosphatase (test code = 6768-6) 74 40-150 [facility] CenterBlood hypochromia detection by light ynzcjyqfsr7007-41-84 05:10:00* Test Item Value Reference Range Interpretation Comments Hypochromasia (test code = 728-6) SLIGHT [facility] CenterUrine [id number] 18:05:00* Test Item Value Reference Range Interpretation Comments Urine WBC (test code = 5821-4) NONE 0-5 [facility] CenterUrine UDE4671-97-68 18:05:00* Test Item Value Reference Range Interpretation Comments Urine RBC (test code = 80543-0) 0-5 0-5 [facility] CenterUrine Bpevisnb1790-34-97 18:05:00* Test Item Value Reference Range Interpretation Comments Urine Bacteria (test code = 89266-1) NONE NONE [facility] CenterUrine Epithelial Pzcbc9047-02-11 18:05:00 * Test Item Value Reference Range Interpretation Comments Urine Epithelial Cells (test code = 63295-6) RARE NONE [facility] CenterLactic Acid Iqzou1336-87-53 17:56:00* Test Item Value Reference Range Interpretation Comments Lactic Acid Level (test code = Lactic Acid Level) 1.3 0.5- 2.0 [facility] CenterLactic Acid Wkpcl8740-39-04 17:56:00* Test Item Value Reference Range Interpretation Comments Lactic Acid Level (test code = Lactic Acid Level) 1.3 0.5- 2.0 [facility] CenterLactic Acid Awnlq0302-27-03 17:56:00* Test Item Value Reference Range Interpretation Comments Lactic Acid Level (test code = Lactic Acid Level) 1.3 0.5- 2.0 [facility] CenterUrine Pfgsy4762-63-37 17:53:00* Test Item Value Reference Range Interpretation Comments Urine Color (test code = 5778-6) YELLOW YELLOW [facility] CenterUrine Kjrarhc3305-16-56 17:53:00* Test Item Value Reference Range Interpretation Comments Urine Clarity (test code = 60080-1) SL CLOUDY CLEAR H [facility] CenterUrine Specific Bwdqrkt4015-69-30 17:53:00 * Test Item Value Reference Range Interpretation Comments Urine Specific [place] (test code = 5811-5) 1.015 1.010-1.02 5 [facility] CenterUrine oO7570-58-03 17:53:00* Test Item Value Reference Range Interpretation Comments Urine pH (test code = 09802-3) 6 5-7 [facility] CenterUrine Leukocyte Ezgtzzsu6208-87-89 17:53:00* Test Item Value Reference Range Interpretation Comments Urine Leukocyte Esterase (test code = 5799-2) NEGATIVE NEGATIVE [facility] CenterUrine Nouqjda5707-33-89 17:53:00* Test Item Value Reference Range Interpretation Comments Urine Nitrite (test code = 64160-9) NEGATIVE NEGATIVE [facility] CenterUrine Evirxqg5422-18-67 17:53:00* Test Item Value Reference Range Interpretation Comments Urine Protein (test code = 5804-0) 1+ NEGATIVE H [facility] CenterUrine Glucose (UA)2019-07-03 17:53:00* Test Item Value Reference Range Interpretation Comments Urine Glucose (UA) (test code = 2349-9) NEGATIVE NEGATIVE [facility] CenterUrine Hfqrveo9409-99-47 17:53:00* Test Item Value Reference Range Interpretation Comments Urine Ketones (test code = 58607-2) NEGATIVE NEGATIVE [facility] CenterUrine Pymhmwisuzwx5938-27-69 17:53:00* Test Item Value Reference Range Interpretation Comments Urine Urobilinogen (test code = 08553-2) 0.2 0.2-1 [facility] CenterUrine Wdeksmxyf7303-48-91 17:53:00* Test Item Value Reference Range Interpretation Comments Urine Bilirubin (test code = 1978-6) NEGATIVE NEGATIVE [facility] CenterUrine Bfiyr9495-72-58 17:53:00* Test Item Value Reference Range Interpretation Comments Urine Blood (test code = 69841-3) NEGATIVE NEGATIVE [facility] CenterFluoroscopic procedure less than one hour umdoodkq0472-87-43 17:30:00* Test Item Value Reference Range Interpretation Comments Lactic Acid Level (test code = Lactic Acid Level) 1.3 0.5- 2.0 [facility] CenterCHEST SINGLE (PORTABLE)2019-07-03 15:03:00 [facility] [address] [place] [address] Patient Name: ALEX PETERS MR #: [id number] : 1935 Age/Sex: 84/M Req #: [id number] Adm Physician: Ordered by: JAIRON LAM MD Report #: [id number] Location: ER Room/Bed: Procedure: [id number] D X/CHEST SINGLE (PORTABLE) Exam Date: 07/03/19 Exam T doreen: 1420 REPORT STATUS: Signed EXAMINATION: CHEST SINGLE (PORTABLE) INDICATION: Fever COMPARISON : None FINDINGS: LINES/TUBES:None LUNGS:The lungs are modera tely inflated. There is perihilar fullness and indistinctness of the pulmonary vasculature. No focal consolidation. PLEURA:No pleural effusion or pneumot horax. MEDIASTINUM:The cardiomediastinal silhouette is at the upper limits of normal for size. BONES/SOFT TISSUES:No acute osseous injury. Metallic anchor at the proximal humerus. ABDOMEN:No free air under the diaphragm. IMPRESSION: Mild pulmonary edema. Heart at the upper limits of normal for size. No focal pneumonia. Signed by: Rachael Jenkins MD on 07/03/2019 3:05 PM Dictated By: RACHAEL JENKINS MD 1505 Transcribed By: CALVIN on 07/03/19 1505 COPY TO: JAIRON LAM MD Troponin [id number] 14:32:00* Test Item Value Reference Range Interpretation Comments Troponin I (test code = AUL9864) 0.015 0-0.300 [facility] CenterInfluenza Virus Types A,B Antigen 2019-07-03 14:29:00* Test Item Value Reference Range Interpretation Comments Influenza Virus Types A,B Antigen (test code = 09311-6) NEGATIVE NEGATIVE [facility] CenterInfluenza Virus Types A,B Antigen 2019-07-03 14:29:00* Test Item Value Reference Range Interpretation Comments Influenza Virus Types A,B Antigen (test code = 43745-3) NEGATIVE NEGATIVE [facility] CenterInfluenza Virus Types A,B Antigen 2019-07-03 14:29:00* Test Item Value Reference Range Interpretation Comments Influenza Virus Types A,B Antigen (test code = 11584-6) NEGATIVE NEGATIVE [facility] CenterInfluenza virus A and B antigen identification by llfwetbrescdugbtma3938-12-63 13:41:00* Test Item Value Reference Range Interpretation Comments Influenza Virus Types A,B Antigen (test code = 08741-4) NEGATIVE NEGATIVE [facility] CenterBedside Thgivxh2149-87-72 15:21:00* Test Item Value Reference Range Interpretation Comments Bedside Glucose (test code = 20516-0) 183 70-120 H Meter ID: [id number] [facility] Hospital B Surface Antibody, Mvtck6589-28-90 12:16:00* Test Item Value Reference Range Interpretation Comments Hepatitis B Surface Antibody, Quant (test code = 5194-6) 241.1 Status of Immunity Anti-HBs Level Inconsistent with Immunity 0.0 - 9.9Consistent with Immunity >9.[facility] B Core Total Jsnhryya4728-34-88 12:16:00* Test Item Value Reference Range Interpretation Comments Hepatitis B Core Total Antibody (test code = 63504-4) NEGATIVE Performed at: [facility] [address] [id number] Director: Yamil Enriquez MD, Phone: [phone] Central Surgical Center Hospital B Surface Rnhaoja3169-55-73 12:16:00* Test Item Value Reference Range Interpretation Comments Hepatitis B Surface Antigen (test code = 5196-1) NEGATIVE [facility] C Kxbhbuhk4759-89-74 12:16:00* Test Item Value Reference Range Interpretation Comments Hepatitis C Antibody (test code = 49756-3) <0.1 Reference Range: 0.0 - 0.9 s/co ratioNegative: < 0.8Indeterminate: 0.8 - 0.9Positive: > 0.9The CDC recommends that a positive HCV antibody resultbe followed up with a HCV Nucleic Acid Amplificationtest (939172).Testing performed by:[facility] [address] [phone]: Yamil Enriquez [facility] B Surface Antibody, Quant 2019-06-20 12:16:00* Test Item Value Reference Range Interpretation Comments Hepatitis B Surface Antibody, Quant (test code = 5194-6) 241.1 Status of Immunity Anti-HBs Level Inconsistent with Immunity 0.0 - 9.9Consistent with Immunity >9.9[facility] B Core Total Yoevphxd4790-85-57 12:16:00* Test Item Value Reference Range Interpretation Comments Hepatitis B Core Total Antibody (test code = 05491-7) NEGATIVE Performed at: [facility] [address] [id number] Director: Yamil Enirquez MD, Phone: [phone] [facility] Surgical Center Hospital B Surface Mppeadc1698-92-45 12:16:00* Test Item Value Reference Range Interpretation Comments Hepatitis B Surface Antigen (test code = 5196-1) NEGATIVE [facility] C Erpdyjsr5238-63-91 12:16:00* Test Item Value Reference Range Interpretation Comments Hepatitis C Antibody (test code = 12638-3) <0.1 Reference Range: 0.0 - 0.9 s/co ratioNegative: < 0.8Indeterminate: 0.8 - 0.9Positive: > 0.9The CDC recommends that a positive HCV antibody resultbe followed up with a HCV Nucleic Acid Amplificationtest (389962).Testing performed by:[facility] [phone]: Yamil Enriquez [facility] B Surface Antibody, Quant 2019-06-20 12:16:00* Test Item Value Reference Range Interpretation Comments Hepatitis B Surface Antibody, Quant (test code = 5194-6) 241.1 Status of Immunity Anti-HBs Level Inconsistent with Immunity 0.0 - 9.9Consistent with Immunity >9.9[facility] B Core Total Mhnlmrwu9068-59-35 12:16:00* Test Item Value Reference Range Interpretation Comments Hepatitis B Core Total Antibody (test code = 59336-5) NEGATIVE Performed at: [facility] [address] [id number] Director: Yamil Enriquez MD, Phone: [phone] Central Surgical Center Hospital B Surface Ztxrmpy3397-49-43 12:16:00* Test Item Value Reference Range Interpretation Comments Hepatitis B Surface Antigen (test code = 5196-1) NEGATIVE [facility] C Ovbkafis7458-18-20 12:16:00* Test Item Value Reference Range Interpretation Comments Hepatitis C Antibody (test code = 29395-4) <0.1 Reference Range: 0.0 - 0.9 s/co ratioNegative: < 0.8Indeterminate: 0.8 - 0.9Positive: > 0.9The CDC recommends that a positive HCV antibody resultbe followed up with a HCV Nucleic Acid Amplificationtest (191503).Testing performed by:[facility] [phone]: Yamil Enriquez [facility] B Surface Antibody, Quant 2019-06-20 12:16:00* Test Item Value Reference Range Interpretation Comments Hepatitis B Surface Antibody, Quant (test code = 5194-6) 241.1 Status of Immunity Anti-HBs Level Inconsistent with Immunity 0.0 - 9.9Consistent with Immunity >9.9[facility] B Core Total Hfyhgzkw4295-91-76 12:16:00* Test Item Value Reference Range Interpretation Comments Hepatitis B Core Total Antibody (test code = 72585-9) NEGATIVE Performed at: [facility] [address] [id number] Director: Yamil Enriquez MD, Phone: [phone] Central Surgical Center Hospital B Surface Ljxmmxy3628-94-39 12:16:00* Test Item Value Reference Range Interpretation Comments Hepatitis B Surface Antigen (test code = 5196-1) NEGATIVE [facility] Xdbqpsna2466-05-24 12:16:00* Test Item Value Reference Range Interpretation Comments Hepatitis C Antibody (test code = 16461-1) <0.1 Reference Range: 0.0 - 0.9 s/co ratioNegative: < 0.8Indeterminate: 0.8 - 0.9Positive: > 0.9The [facility] recommends that a positive HCV antibody resultbe followed up with a HCV Nucleic Acid Amplificationtest (384972).Testing performed by:[facility] [address] [phone]: Yamil Enriquez [facility] - Treadmill YNPU5591-75-67 14:59:00 [facility] [address] [address] Patient Name : ALEX PETERS MR #: [id number] : 1935 Age/Sex: 84/M Adm Physician : AVIS FLORES MD Admit Date : 06/13/19 Location : MED/SURG2 Room/Bed : [facility] REPORT: Shannan St ress Test DATE OF STUDY: 06/18/2019 21:40:00 Stress Test - Treadmill O NLY PROCEDURE PERFORMED: Lexiscan nuclear stress test. TECHNIQUE: The patient was stressed using 1 minute intravenous infusion of Lexiscan. Rest and stress Myoview imaging was obtained. Normal contractility of the left ve ntricle. Small perfusion defect noted in the stress images in the left ventricu lar apex. Rest images are normal. CONCLUSIONS: 1. Abnormal Lexisca n nuclear stress test showing mild apical ischemia. 2. LV ejection fraction is 58%. MD CHAVEZ Wilburn/NATALIE [id number] Signature Date Dictated By: ROME ARCOS MD T ranscribed By: NATALIE on 06/19/19 <Electronically signed by ROME ARCOS MD><< Signature on File>>07/08/19 1336 COPY TO: Blood Gxfiqyz6186-39-97 11:39:00* Test Item Value Reference Range Interpretation Comments Blood Culture (test code = 69259171) NO GROWTH AFTER 72 HOURS [facility] EGBWZHU5665-33-63 17:29:00 [facility] [address] [place] [address] Patient Name: ALEX PETERS MR #: [id number] : 1935 Age/Sex: 84/M Req #: [id number] Adm Physician: BENITO GARCIA MD Ordered by: JUNIOR GUZMAN MD Report #: [id number] Location: MED/SURG2 Room/Bed: [facility] Procedure: [id number] DX/IR C ONSULT Exam Date: Exam Time: REPORT STATUS: Signed PROCEDURE: CT-guided bone marrow biopsy Procedural Personnel Attending physician(s): MD Rozina Guerin [facility] physician(s): None Resident physician(s): None Advanced practice provid er(s): None Pre-procedure diagnosis: Anemia Post-procedure diagnosis: Joaquin e Indication: Histopathologic diagnosis Previous biopsy of same target (QCDR ): No Additional clinical history: None Complications: No immediate compl ications. IMPRESSION: CT-guided biopsy of left iliac bone marrow. Aspi rates and core biopsy sample obtained. Plan: Specimen(s) sent for e valuation. PROCEDURE SUMMARY: - Percutaneous CT-guided bone marrow biopsy at the left i liac bone - Additional procedure(s): None PROCEDURE DETAILS: Pre-pro cedure Reference imaging for biopsy target: None Consent: Informed consent f or the procedure including risks, benefits and alternatives was obtained and t doreen-out was performed prior to the procedure. Preparation: The site was prepar ed and draped using maximal sterile barrier technique including cutaneous anti sepsis. Anesthesia/sedation Level of anesthesia/sedation: No sedation (alex pantoja received Ativan on the floor prior to arriving for the procedure and was comfortably sedated). Anesthesia/sedation administered by: Independent trained observer under attending supervision with continuous monitoring of the patie nt?s level of consciousness and physiologic status Imaging prior to biops y The patient was positioned prone. Initial imaging was performed using nonc ontrast CT. Biopsy target: - Maximal diameter (cm): Nonfocal - Location: L eft iliac bone Other findings: None Biopsy Local anesthesia was admini stered. Under CT guidance, the biopsy needle was advanced to the target and bi opsy was performed. Coaxial needle: 11 gauge Core needle biopsy device: J amshid needle Core needle size: 11 gauge Number of core specimens: 1 As piration device: Ren needle Aspiration specimen: 2 green top syringes, sli sahra made by [employer]. Needle removal The biopsy needle was removed and a sterile dressing was applied. Tract embolization: None Imaging following biopsy Immediate post-biopsy imaging was performed using noncontrast CT. Pos t-biopsy imaging findings: No hematoma Contrast Contrast agent: None Co ntrast volume (mL): [address] dose length product (mGy-cm): 786 .9 Additional Details Additional description of procedure: None Equipm ent details: None Specimens removed: Biopsy samples as detailed above Estima ainsley blood loss (mL): Less than 10 Standardized report: SIR_BiopsyCT_v3 At testation Signer name: Rachael Jenkins MD I attest that I was present for the en tire procedure. I reviewed the stored images and agree with the report as writ ten. Signed by: Rachael Jenkins MD on 06/18/2019 5:33 PM Dictated By: SANDEEP JENKINS MD 32 Transcribe d By: CALVIN on 06/18/191732 COPY TO: JUNIOR GUZMAN MD CT GUIDED BIOPSY/ASPIR/INJ/GBP3021-20-10 17:29:[address] [address] Patient Name: ALEX PETERS MR #: [id number] : 1935 Age/Sex: 84/M Req #: [id number] Adm Physician: BENITO GARCIA MD Ordered by: JUNIOR GUZMAN MD Report #: [id number] [facility] Room/Bed: [facility] Procedure: [id number] CT/CT G UIDED BIOPSY/ASPIR/INJ/KRISTYN Exam Date: 06/18/19 Exam Time: 1430 REPORT STATUS: Signed PROCEDURE: CT-guided bone marrow biopsy Procedural Personnel Attending p jaylanan(s): Rachael Jenkins MD Fellow physician(s): None Resident physician(s): None Advanced practice provider(s): None Pre-procedure diagnosis: Anemia Post-procedure diagnosis: Same Indication: Histopathologic diagnosis Prev ious biopsy of same target (QCDR): No Additional clinical history: None C omplications: No immediate complications. IMPRESSION: CT-guided biopsy of left iliac bone marrow. Aspirates and core biopsy sample obtained. Pl an: Specimen(s) sent for evaluation. PROCEDURE SUMMARY: - Percutaneous CT-guided bone marrow biopsy at the left iliac bone - Additional procedure(s): None PROCEDURE DETAILS: Pre-procedure Reference imaging for biopsy target: No ne Consent: Informed consent for the procedure including risks, benefits and alternatives was obtained and time-out was performed prior to the procedure. Preparation: The site was prepared and draped using maximal sterile barrier te chnique including cutaneous antisepsis. Anesthesia/sedation Level of anes thesia/sedation: No sedation (patient received Ativan on the floor prior to ar riving for the procedure and was comfortably sedated). Anesthesia/sedation adm inistered by: Independent trained observer under attending supervision with co ntinuous monitoring of the patient?s level of consciousness and physiologic st atus Imaging prior to biopsy The patient was positioned prone. Initial im aging was performed using noncontrast CT. Biopsy target: - Maximal diamete r (cm): Nonfocal - Location: Left iliac bone Other findings: None Biops y Local anesthesia was administered. Under CT guidance, the biopsy needle was advanced to the target and biopsy was performed. Coaxial needle: 11 gauge Core needle biopsy device: Ren needle Core needle size: 11 gauge Num joaquin of core specimens: 1 Aspiration device: Ren needle Aspiration spe cimen: 2 green top syringes, slides made by [employer]. Needle removal The biopsy needle was removed and a sterile dressing was applied. Tract embolizati on: None Imaging following biopsy Immediate post-biopsy imaging was perfo rmed using noncontrast CT. Post-biopsy imaging findings: No hematoma Cont rast Contrast agent: None Contrast volume (mL): [address] d ose length product (mGy-cm): 786.9 Additional Details Additional descrip tion of procedure: None Equipment details: None Specimens removed: Biopsy sa mples as detailed above Estimated blood loss (mL): Less than 10 Standardized report: SIR_BiopsyCT_v3 Attestation Signer name: Rachael Jenkins MD I atte st that I was present for the entire procedure. I reviewed the stored images a nd agree with the report as written. Signed by: Rachael Jenkins MD on 06/18/2019 5:33 PM Dictated By: RACHAEL JENKINS MD 32 Transcribed By: CALVIN on 06/18/191732 COPY TO: JUNIOR GUZMAN MD BONE MARROW BX TBYKCXIWOS4305-00-15 17:29:[address] [address] Patient Name: ALEX PETERS MR #: [id number] : 1935 Age/Sex: 84/M Req #: [id number] Adm Physician: BENITO GARCIA MD Ordered by: JUNIOR GUZMAN MD Report #: [id number] Location[facility] Room/Bed: [facility] Procedure: [id number] IR/BONE MARROW BX ASPIRATION Exam Date: 06/18/19 Exam Dillan e: 1430 REPORT STATUS: Signed OK OCEDURE: CT-guided bone marrow biopsy Procedural Personnel Attending phys ician(s): Rachael Jenkins MD Fellow physician(s): None Resident physician(s): No ne Advanced practice provider(s): None Pre-procedure diagnosis: Anemia Post-procedure diagnosis: Same Indication: Histopathologic diagnosis Previou s biopsy of same target (QCDR): No Additional clinical history: None Comp lications: No immediate complications. IMPRESSION: CT-guided biopsy of left iliac bone marrow. Aspirates and core biopsy sample obtained. Plan: Specimen(s) sent for evaluation. PROCEDURE SUMMARY: - Percutaneous CT-guided bon e marrow biopsy at the left iliac bone - Additional procedure(s): None OK OCEDURE DETAILS: Pre-procedure Reference imaging for biopsy target: None Consent: Informed consent for the procedure including risks, benefits and al ternatives was obtained and time-out was performed prior to the procedure. Pre paration: The site was prepared and draped using maximal sterile barrier techn ique including cutaneous antisepsis. Anesthesia/sedation Level of anesthe chey/sedation: No sedation (patient received Ativan on the floor prior to arriv ing for the procedure and was comfortably sedated). Anesthesia/sedation admini stered by: Independent trained observer under attending supervision with ayaan nuous monitoring of the patient?s level of consciousness and physiologic statu s Imaging prior to biopsy The patient was positioned prone. Initial imagi ng was performed using noncontrast CT. Biopsy target: - Maximal diameter ( cm): Nonfocal - Location: Left iliac bone Other findings: None Biopsy Local anesthesia was administered. Under CT guidance, the biopsy needle was advanced to the target and biopsy was performed. Coaxial needle: 11 gauge Core needle biopsy device: Ren needle Core needle size: 11 gauge Number of core specimens: 1 Aspiration device: Ren needle Aspiration specim en: 2 green top syringes, slides made by Svpp[employer]. Needle removal The bio psy needle was removed and a sterile dressing was applied. Tract embolization: None Imaging following biopsy Immediate post-biopsy imaging was performed using noncontrast CT. Post-biopsy imaging findings: No hematoma Contrast Contrast agent: None Contrast volume (mL): [address] dose length product (mGy-cm): 786.9 Additional Details Additional description of procedure: None Equipment details: None Specimens removed: Biopsy samples as detailed above Estimated blood loss (mL): Less than 10 Standardized re port: SIR_BiopsyCT_v3 Attestation Signer name: Rachael Jenkins MD I attest that I was present for the entire procedure. I reviewed the stored images and agree with the report as written. Signed by: Rachael Jenkins MD on 06/18/2019 5: 33 PM Dictated By: RACHAEL JENKINS MD 0291 Transcribed By: CALVIN on 06/18/19 1512 COPY TO: JUNIOR GUZMAN MD Blood Iholcos6031-22-86 11:28:00* Test Item Value Reference Range Interpretation Comments Blood Culture (test code = 600-7) No Result Data Provided [facility] Xpeaoic8488-76-28 11:28:00* Test Item Value Reference Range Interpretation Comments Blood Culture (test code = 600-7) No Result Data Provided [facility] Edobfeq7452-96-61 11:28:00* Test Item Value Reference Range Interpretation Comments Blood Culture (test code = 600-7) No Result Data Provided [facility] Tjdhbkc7161-47-33 11:28:00* Test Item Value Reference Range Interpretation Comments Blood Culture (test code = 600-7) No Result Data Provided [facility] CenterProthrombin Rnhi4416-14-19 09:51:00* Test Item Value Reference Range Interpretation Comments Prothrombin Time (test code = 5902-2) 15.9 11.9-14.5 H [facility] CenterProthromb Time International Ratio 2019-06-18 09:51:00* Test Item Value Reference Range Interpretation Comments Prothromb Time International Ratio (test code = 6301-6) 1.21 Oral Anticoagulant Therapy INR Values:1. Low Intensity Therapy 1.5 - 2.02 . Moderate Intensity Therapy 2.0 - 3.03. High Intensity Therapy(1) 2.5 - 3. 54. High Intensity Therapy(2) 3.0 - 4.05. Panic Value INR > 5.0 [facility] CenterProthrombin Efzp2432-53-38 09:51:00* Test Item Value Reference Range Interpretation Comments Prothrombin Time (test code = 5902-2) 15.9 11.9-14.5 H [facility] CenterProthromb Time International Ratio 2019-06-18 09:51:00* Test Item Value Reference Range Interpretation Comments Prothromb Time International Ratio (test code = 6301-6) 1.21 Oral Anticoagulant Therapy INR Values:1. Low Intensity Therapy 1.5 - 2.02 . Moderate Intensity Therapy 2.0 - 3.03. High Intensity Therapy(1) 2.5 - 3. 54. High Intensity Therapy(2) 3.0 - 4.05. Panic Value INR > 5.0 [facility] CenterPlatelet Szbnvias1188-73-73 07:08:00* Test Item Value Reference Range Interpretation Comments Platelet Estimate (test code = 02347-9) ADEQUATE [facility] CenterRed Cell Morphology Fobhain6263-51-85 07:08:00* Test Item Value Reference Range Interpretation Comments Red Cell Morphology Comment (test code = 6742-1) NORMAL [facility] Hospital[facility] Qmykh0532-61-19 05:42:00* Test Item Value Reference Range Interpretation Comments Sodium Level (test code = 2951-2) 136 136-145 [facility] CenterPotassium Wstzh0318-21-12 05:42:00* Test Item Value Reference Range Interpretation Comments Potassium Level (test code = 2823-3) 3.9 3.5-5.1 [facility] CenterChloride Podso2085-24-82 05:42:00* Test Item Value Reference Range Interpretation Comments Chloride Level (test code = 2075-0) 101 98-107 [facility] CenterCarbon Dioxide Ihvmm8384-80-29 05:42:00* Test Item Value Reference Range Interpretation Comments Carbon Dioxide Level (test code = 2028-9) 24 22-29 [facility] CenterAnion Stj8695-31-82 05:42:00* Test Item Value Reference Range Interpretation Comments Anion Gap (test code = 04683-7) 14.9 8-16 [facility] CenterBlood Urea Evspvbkn1321-67-23 05:42:00* Test Item Value Reference Range Interpretation Comments Blood Urea Nitrogen (test code = 3094-0) 24 7-26 [facility] CenterCreatinine2019-10-07 05:42:00* Test Item Value Reference Range Interpretation Comments Creatinine (test code = 2160-0) 1.18 0.72-1.25 [facility] CenterBUN/Creatinine Zobvr3124-87-89 05:42:00* Test Item Value Reference Range Interpretation Comments BUN/Creatinine Ratio (test code = 3097-3) 20 6-25 [facility] CenterEstimat Glomerular Filtration Rate 2019-06-18 05:42:00* Test Item Value Reference Range Interpretation Comments Estimat Glomerular Filtration Rate (test code = 482625736) 59 >60 L Ranges were taken from the National Kidney Disease Education Program and the [facility] Foundation literature.Reference ranges:60 or greater: Eaiwze93-62 ( for 3 consecutive months): Chronic kidney disease 15 or less: Kidney failureDallas Medical CenterGlucose Lvzbo7132-56-35 05:42:00* Test Item Value Reference Range Interpretation Comments Glucose Level (test code = NQB9055) 110 74-118 [facility] CenterCalcium Fbttt7283-93-64 05:42:00* Test Item Value Reference Range Interpretation Comments Calcium Level (test code = 51281-4) 9.9 8.4-10.2 [facility] CenterWhite Blood Vdnlv6758-53-04 05:18:00* Test Item Value Reference Range Interpretation Comments White Blood Count (test code = 6690-2) 2.00 4.8-10.8 L [facility] CenterRed Blood Zbbii3447-23-34 05:18:00* Test Item Value Reference Range Interpretation Comments Red Blood Count (test code = 789-8) 3.40 4.3-5.7 L [facility] CenterHemoglobin2019-10-07 05:18:00* Test Item Value Reference Range Interpretation Comments Hemoglobin (test code = 34977-7) 9.5 14.0-18.0 L [facility] CenterHematocrit2019-10-07 05:18:00* Test Item Value Reference Range Interpretation Comments Hematocrit (test code = 4544-3) 29.4 38.2-49.6 L [facility] Medical CenterMean Corpuscular Mgshiz4557-20-65 05:18:00* Test Item Value Reference Range Interpretation Comments Mean Corpuscular Volume (test code = 787-2) 86.5 81-99 [facility] CenterMean Corpuscular Erbzpovivq2766-50-51 05:18:00* Test Item Value Reference Range Interpretation Comments Mean Corpuscular Hemoglobin (test code = 785-6) 27.9 28-32 L [facility] Medical CenterMean Corpuscular Hemoglobin Concent 2019-06-18 05:18:00* Test Item Value Reference Range Interpretation Comments Mean Corpuscular Hemoglobin Concent (test code = 786-4) 32.3 31-35 [facility] CenterRed Cell Distribution Bfuwt9692-50-33 05:18:00* Test Item Value Reference Range Interpretation Comments Red Cell Distribution Width (test code = 58369-9) 20.6 11.7 -14.4 H [facility] CenterPlatelet Ryecb2868-02-31 05:18:00* Test Item Value Reference Range Interpretation Comments Platelet Count (test code = 777-3) 370 140-360 H [facility] CenterNeutrophils (%) (Auto)2019-06-18 05:18:00 * Test Item Value Reference Range Interpretation Comments Neutrophils (%) (Auto) (test code = 96670-9) 54.0 38.7-80.0 [facility] CenterLymphocytes (%) (Auto)2019-06-18 05:18:00 * Test Item Value Reference Range Interpretation Comments Lymphocytes (%) (Auto) (test code = 736-9) 42.0 18.0-39.1 H [facility] CenterMonocytes (%) (Auto)2019-06-18 05:18:00* Test Item Value Reference Range Interpretation Comments Monocytes (%) (Auto) (test code = 5905-5) 3.0 4.4-11.3 L [facility] CenterEosinophils (%) (Auto)2019-06-18 05:18:00 * Test Item Value Reference Range Interpretation Comments Eosinophils (%) (Auto) (test code = 713-8) 0.5 0.0-6.0 [facility] CenterBasophils (%) (Auto)2019-06-18 05:18:00* Test Item Value Reference Range Interpretation Comments Basophils (%) (Auto) (test code = 706-2) 0.0 0.0-1.0 [facility] CenterIM GRANULOCYTES %2019-06-18 05:18:00* Test Item Value Reference Range Interpretation Comments IM GRANULOCYTES % (test code = IM GRANULOCYTES %) 0.5 0.0- 1.0 [facility] CenterNeutrophils # (Auto)2019-06-18 05:18:00* Test Item Value Reference Range Interpretation Comments Neutrophils # (Auto) (test code = 751-8) 1.1 2.1-6.9 L [facility] CenterLymphocytes # (Auto)2019-06-18 05:18:00* Test Item Value Reference Range Interpretation Comments Lymphocytes # (Auto) (test code = 84177-0) 0.8 1.0-3.2 L [facility] CenterMonocytes # (Auto)2019-06-18 05:18:00* Test Item Value Reference Range Interpretation Comments Monocytes # (Auto) (test code = 742-7) 0.1 0.2-0.8 L [facility] CenterEosinophils # (Auto)2019-06-18 05:18:00* Test Item Value Reference Range Interpretation Comments Eosinophils # (Auto) (test code = 711-2) 0.0 0.0-0.4 [facility] CenterBasophils # (Auto)2019-06-18 05:18:00* Test Item Value Reference Range Interpretation Comments Basophils # (Auto) (test code = 704-7) 0.0 0.0-0.1 [facility] CenterAbsolute Immature Granulocyte (auto 2019-06-18 05:18:00* Test Item Value Reference Range Interpretation Comments Absolute Immature Granulocyte (auto (joão t code = Absolute Immature Granulocyte (auto) 0.01 0-0.1 [facility] CenterC-Reactive Rtbojbj1516-85-28 01:40:00* Test Item Value Reference Range Interpretation Comments C-Reactive Protein (test code = 1988-5) 5 0-10 Performed at: - [facility] [id number] Director: Yamil Enriquez MD, Phone: [phone] Medical CenterC-Reactive Nurhcyc5150-68-41 01:40:00* Test Item Value Reference Range Interpretation Comments C-Reactive Protein (test code = 1987-5) 5 0-10 Performed at: [address] [id number] Director: Yamil Enriquez MD, Phone: [phone] Medical CenterC-Reactive Ulqdvto7547-08-76 01:40:00* Test Item Value Reference Range Interpretation Comments C-Reactive Protein (test code = 1987-5) 5 0-10 Performed at: [address] [id number] Director: Yamil Enriquez MD, Phone: [phone] [place], [place] [address]C-Reactive Porlcyf3815-15-89 01:40:00* Test Item Value Reference Range Interpretation Comments C-Reactive Protein (test code = 1987-5) 5 0-10 Performed at: [address] [id number] Director: Yamil Enriquez MD, Phone: [phone] [place], [place] [address]Anti-Nuclear Antibody Jaqcah9001-21-83 01:39:00* Test Item Value Reference Range Interpretation Comments Anti-Nuclear Antibody Screen (test code = 5048-4) Negative . Negative <1:80 Borderline 1:80 Positive > 1:80Performed at: [address] [id number] 3Lab Director: Yamil Enriquez MD, Phone: [phone] [place], [place] [address]Rheumatoid Syaqac5739-72-55 01:39:00* Test Item Value Reference Range Interpretation Comments Rheumatoid Factor (test code = 29049-0) <10.0 0.0-13.9 Performed at: [address] [id number] Director: Yamil Enriquez MD, Phone: [phone] Medical CenterAnti-Nuclear Antibody Gekyqt3144-43-82 01:39:00* Test Item Value Reference Range Interpretation Comments Anti-Nuclear Antibody Screen (test code = 5048-4) Negative . Negative <1:80 Borderline 1:80 Positive > 1:80Performed at: [address] [id number] 3Lab Director: Yamil Enriquez MD, Phone: [phone] [place], [place] [address]2019-10-07 01:39:00* Test Item Value Reference Range Interpretation Comments Rheumatoid Factor (test code = 51937-3) <10.0 0.0-13.9 Performed at: [address] [id number] Director: Yamil Enriquez MD, Phone: [phone] [place], [place] [address]Anti-Nuclear Antibody Mlumrk2398-35-64 01:39:00* Test Item Value Reference Range Interpretation Comments Anti-Nuclear Antibody Screen (test code = 5048-4) Negative . Negative <1:80 Borderline 1:80 Positive > 1:80Performed at: [address] [id number] 3Lab Director: Yamil Enriquez MD, Phone: [phone] [facility]2019-10-07 01:39:00* Test Item Value Reference Range Interpretation Comments Rheumatoid Factor (test code = 67969-2) <10.0 0.0-13.9 Performed at: [address] [id number] Director: Yamil Enriquez MD, Phone: [phone] [place], [place] [address]Anti-Nuclear Antibody Tmjhlo3650-87-94 01:39:00* Test Item Value Reference Range Interpretation Comments Anti-Nuclear Antibody Screen (test code = 5048-4) Negative . Negative <1:80 Borderline 1:80 Positive > 1:80Performed at: [address] [id number] 3Lab Director: Yamil Enriquez MD, Phone: [phone] Scott & [facility]2019-10-07 01:39:00* Test Item Value Reference Range Interpretation Comments Rheumatoid Factor (test code = 09690-0) <10.0 0.0-13.9 Performed at: - [facility] [id number] [place], [place] [id number] Director: Yamil Enriquez MD, Phone: [phone] Medical CenterDifferential Total Cells Gotgoyq1283-01-43 17:17:00* Test Item Value Reference Range Interpretation Comments Differential Total Cells Counted (test code = Differen tial Total Cells Counted) 100 [facility] CenterNeutrophils % (Manual)2019-06-17 17:17:00 * Test Item Value Reference Range Interpretation Comments Neutrophils % (Manual) (test code = 75311-6) 63 40-74 [facility] CenterLymphocytes % (Manual)2019-06-17 17:17:00 * Test Item Value Reference Range Interpretation Comments Lymphocytes % (Manual) (test code = 737-7) 32 19-48 [facility] CenterMonocytes % (Manual)2019-06-17 17:17:00* Test Item Value Reference Range Interpretation Comments Monocytes % (Manual) (test code = 744-3) 3 3.4-9.0 L [facility] CenterEosinophils % (Manual)2019-06-17 17:17:00 * Test Item Value Reference Range Interpretation Comments Eosinophils % (Manual) (test code = 714-6) 1 0-7 [facility] CenterPromyelocytes %2019-06-17 17:17:00* Test Item Value Reference Range Interpretation Comments Promyelocytes % (test code = 50587-2) 1 0-0 H [facility] CenterPlatelet Morphology Lyndevy9780-13-86 17:17:00* Test Item Value Reference Range Interpretation Comments Platelet Morphology Comment (test code = 18378-5) FEW GIANT [facility] CenterHypochromasia2019-10-06 17:17:00* Test Item Value Reference Range Interpretation Comments Hypochromasia (test code = 728-6) SLIGHT [facility] CenterPromyelocytes %2019-06-17 17:17:00* Test Item Value Reference Range Interpretation Comments Promyelocytes % (test code = 83643-0) 1 0-0 H [facility] CenterPromyelocytes %2019-06-17 17:17:00* Test Item Value Reference Range Interpretation Comments Promyelocytes % (test code = 85752-8) 1 0-0 H [facility] CenterPromyelocytes %2019-06-17 17:17:00* Test Item Value Reference Range Interpretation Comments Promyelocytes % (test code = 19002-0) 1 0-0 H [facility] CenterBlood promyelocytes/100 leukocytes 2019-06-17 13:51:00* Test Item Value Reference Range Interpretation Comments Promyelocytes % (test code = 92456-5) 1 0-0 [facility] CenterVancomycin Level Atmyzt1903-63-83 08:48:00* Test Item Value Reference Range Interpretation Comments Vancomycin Level Trough (test code = 4092-3) 6.7 5.0-10.0 [facility] CenterAnisocytosis2019-10-05 07:08:00* Test Item Value Reference Range Interpretation Comments Anisocytosis (test code = 702-1) SLIGHT [facility] CenterMicrocytosis2019-10-05 07:08:00* Test Item Value Reference Range Interpretation Comments Microcytosis (test code = 741-9) SLIGHT [facility] CenterAnisocytosis2019-10-05 07:08:00* Test Item Value Reference Range Interpretation Comments Anisocytosis (test code = 702-1) SLIGHT [facility] CenterMicrocytosis2019-10-05 07:08:00* Test Item Value Reference Range Interpretation Comments Microcytosis (test code = 741-9) SLIGHT [facility] CenterAnisocytosis2019-10-05 07:08:00* Test Item Value Reference Range Interpretation Comments Anisocytosis (test code = 702-1) [facility]IGHT [facility] 07:08:00* Test Item Value Reference Range Interpretation Comments Microcytosis (test code = 741-9) SLIGHT [facility] CenterAnisocytosis2019-10-05 07:08:00* Test Item Value Reference Range Interpretation Comments Anisocytosis (test code = 702-1) SLIGHT [facility] CenterMicrocytosis2019-10-05 07:08:00* Test Item Value Reference Range Interpretation Comments Microcytosis (test code = 741-9) SLIGHT [facility] CenterErythrocyte Sedimentation Bccu8578-50-09 06:40:00* Test Item Value Reference Range Interpretation Comments Erythrocyte Sedimentation Rate (test code = 4537-7) 28 0- 13 H [facility] CenterErythrocyte Sedimentation Oize8057-09-28 06:40:00* Test Item Value Reference Range Interpretation Comments Erythrocyte Sedimentation Rate (test code = 4537-7) 28 0- 13 H [facility] CenterErythrocyte Sedimentation Eqop6194-17-11 06:40:00* Test Item Value Reference Range Interpretation Comments Erythrocyte Sedimentation Rate (test code = 4537-7) 28 0- 13 H [facility] CenterErythrocyte Sedimentation Wotq2357-66-21 06:40:00* Test Item Value Reference Range Interpretation Comments Erythrocyte Sedimentation Rate (test code = 4537-7) 28 0- 13 H [facility] CenterBlood anisocytosis detection by light ljsvkqfywx8081-76-87 05:20:00* Test Item Value Reference Range Interpretation Comments Anisocytosis (test code = 702-1) SLIGHT [facility] CenterBlood microcytes detection by light fmktbrzare6318-25-83 05:20:00* Test Item Value Reference Range Interpretation Comments Microcytosis (test code = 741-9) SLIGHT [facility] CenterErythrocyte sedimentation rate by Westergren zpouuc1979-83-31 05:20:00* Test Item Value Reference Range Interpretation Comments Erythrocyte Sedimentation Rate (test code = 4537-7) 28 0- 13 [facility]er[facility] or plasma C reactive protein measurement (mass/volume)2019-06-16 05:20:00* Test Item Value Reference Range Interpretation Comments C-Reactive Protein (test code = 1988-5) 5 0-10 Performed at: [address] [id number] Director: Yamil Enriquez MD, Phone: [phone] Medical CenterUrine QQK8483-44-02 22:06:00* Test Item Value Reference Range Interpretation Comments Urine WBC (test code = 5821-4) 0-5 0-5 [facility] CenterUrine FRP3606-58-76 22:06:00* Test Item Value Reference Range Interpretation Comments Urine RBC (test code = 87250-1) 0-5 0-5 [facility] CenterUrine Edvsgaoi0355-56-00 22:06:00* Test Item Value Reference Range Interpretation Comments Urine Bacteria (test code = 63003-1) RARE NONE [facility] Epithelial Bedkc2605-74-61 22:06:00 * Test Item Value Reference Range Interpretation Comments Urine Epithelial Cells (test code = 44781-4) FEW NONE [facility] CenterUrine Iuiyl0251-32-70 22:00:00* Test Item Value Reference Range Interpretation Comments Urine Color (test code = 5778-6) YELLOW YELLOW [facility] CenterUrine Kyygcwf4494-49-26 22:00:00* Test Item Value Reference Range Interpretation Comments Urine Clarity (test code = 48631-4) CLEAR CLEAR [facility] CenterUrine Specific Vghdfxx1258-25-58 22:00:00 * Test Item Value Reference Range Interpretation Comments Urine Specific [place] (test code = 5811-5) 1.010 1.010-1.02 5 [facility] CenterUrine bT1468-35-68 22:00:00* Test Item Value Reference Range Interpretation Comments Urine pH (test code = 16536-2) 6 5-7 [facility] CenterUrine Leukocyte Quxpyode8570-82-82 22:00:00* Test Item Value Reference Range Interpretation Comments Urine Leukocyte Esterase (test code = 77424-7) NEGATIVE NEGATIV E [facility] CenterUrine Izbjzco1783-67-48 22:00:00* Test Item Value Reference Range Interpretation Comments Urine Nitrite (test code = 54784-8) NEGATIVE NEGATIVE [facility] Ehvoojy6976-14-73 22:00:00* Test Item Value Reference Range Interpretation Comments Urine Protein (test code = 34723-7) 1+ NEGATIVE H [facility] CenterUrine Glucose (UA)2019-06-15 22:00:00* Test Item Value Reference Range Interpretation Comments Urine Glucose (UA) (test code = 73221-5) NEGATIVE NEGATIVE [facility] CenterUrine Bpgkdur3522-31-69 22:00:00* Test Item Value Reference Range Interpretation Comments Urine Ketones (test code = 49470-6) NEGATIVE NEGATIVE [facility] CenterUrine Yyfzrmxxhqxe4782-21-32 22:00:00* Test Item Value Reference Range Interpretation Comments Urine Urobilinogen (test code = 15839-2) 0.2 0.2-1 [facility] CenterUrine Enmhnxqwb4944-36-05 22:00:00* Test Item Value Reference Range Interpretation Comments Urine Bilirubin (test code = 1977-8) NEGATIVE NEGATIVE [facility] CenterUrine Mvsdu4523-50-85 22:00:00* Test Item Value Reference Range Interpretation Comments Urine Blood (test code = 37917-1) NEGATIVE NEGATIVE [facility] CenterHIV (1&2) Aztilmwi7866-43-35 08:57:00* Test Item Value Reference Range Interpretation Comments HIV (1&2) Antibody (test code = 20304-5) [facility] Trczkfc5026-84-14 08:57:00* Test Item Value Reference Range Interpretation Comments HIV P24 Antigen (test code = HIV P24 Antigen) NON-REACTIVE NONREACT VADIM [facility] CenterHIV (1&2) Poxykfqy2193-88-49 08:57:00* Test Item Value Reference Range Interpretation Comments HIV (1&2) Antibody (test code = 06450-9) NON-REACTIVE NONREACTIVE [facility] P24 Lhzdwaa5053-60-16 08:57:00* Test Item Value Reference Range Interpretation Comments HIV P24 Antigen (test code = HIV P24 Antigen) NON-REACTIVE NONREACT VADIM [facility] CenterHIV (1&2) Yzeqyjtk5614-77-17 08:57:00* Test Item Value Reference Range Interpretation Comments HIV (1&2) Antibody (test code = 93824-7) NON-REACTIVE NONREACTIVE [facility] CenterHIV P24 Grbgycp5134-23-31 08:57:00* Test Item Value Reference Range Interpretation Comments HIV P24 Antigen (test code = HIV P24 Antigen) NON-REACTIVE NONREACT VADIM [facility] CenterHIV (1&2) Jhmawfpz0064-75-05 08:57:00* Test Item Value Reference Range Interpretation Comments HIV (1&2) Antibody (test code = 13589-3) NON-REACTIVE NONREACTIVE [facility] CenterHIV P24 Dcabude6298-99-07 08:57:00* Test Item Value Reference Range Interpretation Comments HIV P24 Antigen (test code = HIV P24 Antigen) NON-REACTIVE NONREACT VADIM [facility] CenterNucleated Red Blood Tryyo4966-14-29 08:05:00* Test Item Value Reference Range Interpretation Comments Nucleated Red Blood Cells (test code = 00342-0) 1 [facility] CenterPoikilocytosis2019-10-04 08:05:00* Test Item Value Reference Range Interpretation Comments Poikilocytosis (test code = 779-9) SLIGHT [facility] CenterMacrocytosis2019-10-04 08:05:00* Test Item Value Reference Range Interpretation Comments Macrocytosis (test code = 738-5) SLIGHT [facility] CenterOvalocytes2019-10-04 08:05:00* Test Item Value Reference Range Interpretation Comments Ovalocytes (test code = 774-0) FEW [facility] CenterNucleated Red Blood Pfvjv6963-99-26 08:05:00* Test Item Value Reference Range Interpretation Comments Nucleated Red Blood Cells (test code = 85786-3) 1 [facility] CenterPoikilocytosis2019-10-04 08:05:00* Test Item Value Reference Range Interpretation Comments Poikilocytosis (test code = 779-9) SLIGHT [facility] CenterMacrocytosis2019-10-04 08:05:00* Test Item Value Reference Range Interpretation Comments Macrocytosis (test code = 738-5) SLIGHT [facility] CenterOvalocytes2019-10-04 08:05:00* Test Item Value Reference Range Interpretation Comments Ovalocytes (test code = 774-0) FEW [facility] CenterNucleated Red Blood Zhlez3453-64-56 08:05:00* Test Item Value Reference Range Interpretation Comments Nucleated Red Blood Cells (test code = 32480-5) 1 [facility] CenterPoikilocytosis2019-10-04 08:05:00* Test Item Value Reference Range Interpretation Comments Poikilocytosis (test code = 779-9) SLIGHT [facility] CenterMacrocytosis2019-10-04 08:05:00* Test Item Value Reference Range Interpretation Comments Macrocytosis (test code = 738-5) SLIGHT [facility] CenterOvalocytes2019-10-04 08:05:00* Test Item Value Reference Range Interpretation Comments Ovalocytes (test code = 774-0) FEW [facility] CenterNucleated Red Blood Xwplz2476-16-97 08:05:00* Test Item Value Reference Range Interpretation Comments Nucleated Red Blood Cells (test code = 35229-0) 1 [facility] CenterPoikilocytosis2019-10-04 08:05:00* Test Item Value Reference Range Interpretation Comments Poikilocytosis (test code = 779-9) SLIGHT [facility] CenterMacrocytosis2019-10-04 08:05:00* Test Item Value Reference Range Interpretation Comments Macrocytosis (test code = 738-5) SLIGHT [facility] CenterOvalocytes2019-10-04 08:05:00* Test Item Value Reference Range Interpretation Comments Ovalocytes (test code = 774-0) FEW [facility] CenterIron Dfrmk0039-30-34 07:27:00* Test Item Value Reference Range Interpretation Comments Iron Level (test code = 2498-4) 64 65-175 L [facility] CenterTotal Iron Binding Timizotw0115-14-08 07:27:00* Test Item Value Reference Range Interpretation Comments Total Iron Binding Capacity (test code = 2500-7) 277 261-4 78 [facility] CenterPercent Iron Kmxzktnvru0765-32-65 07:27:00* Test Item Value Reference Range Interpretation Comments Percent Iron Saturation (test code = 2502-3) 23 15-50 [facility] CenterTransferrin2019-10-04 07:27:00* Test Item Value Reference Range Interpretation Comments Transferrin (test code = 3034-6) 198 174-364 [facility] CenterFerritin2019-10-04 07:27:00* Test Item Value Reference Range Interpretation Comments Ferritin (test code = 2276-4) 269.38 21.81-274.66 [facility] CenterIron Izraq7322-77-68 07:27:00* Test Item Value Reference Range Interpretation Comments Iron Level (test code = 2498-4) 64 65-175 L [facility] CenterTotal Iron Binding Fooabzbf2884-40-53 07:27:00* Test Item Value Reference Range Interpretation Comments Total Iron Binding Capacity (test code = 2500-7) 277 261-4 78 [facility] CenterPercent Iron Xgwzzpwabg7583-61-08 07:27:00* Test Item Value Reference Range Interpretation Comments Percent Iron Saturation (test code = 2502-3) 23 15-50 [facility] CenterTransferrin2019-10-04 07:27:00* Test Item Value Reference Range Interpretation Comments Transferrin (test code = 3034-6) 198 174-364 [facility] CenterFerritin2019-10-04 07:27:00* Test Item Value Reference Range Interpretation Comments Ferritin (test code = 2276-4) 269.38 21.81-274.66 [facility] CenterBlood nucleated erythrocytes count (number/volume)2019-06-15 04:55:00* Test Item Value Reference Range Interpretation Comments Nucleated Red Blood Cells (test code = 48724-6) 1 [facility] CenterB[facility]ent[facility] poikilocytosis detection by light sqdtciabsl9510-17-96 04:55:00* Test Item Value Reference Range Interpretation Comments Poikilocytosis (test code = 779-9) SLIGHT [facility] CenterBlood macrocytes detection by light qgxyopitmv4769-16-62 04:55:00* Test Item Value Reference Range Interpretation Comments Macrocytosis (test code = 738-5) SLIGHT [facility] CenterBlood ovalocytes detection by light nwqnecgqeo4631-35-43 04:55:00* Test Item Value Reference Range Interpretation Comments Ovalocytes (test code = 774-0) FEW [facility] Hospitalerum hepatitis B virus surface antibody assay by radioimmunoassay (units/volume)2019-06-15 04:55:00* Test Item Value Reference Range Interpretation Comments Hepatitis B Surface Antibody, Quant (test code = 5194-6) 241.1 Status of Immunity Anti-HBs Level Inconsistent with Immunity 0.0 - 9.9Consistent with Immunity >9.9[facility] Centererum or plasma hepatitis B virus core antibody detection by kymhxlfthpf2157-28-31 04:55:00* Test Item Value Reference Range Interpretation Comments Hepatitis B Core Total Antibody (test code = 04271-1) NEGATIVE Performed at: - [facility] [id number] Director: Yamil Enriquez MD, Phone: [phone] Medical CenterHIV 1 and 2 antibody detection qualitative by rapid zrqugujykzw0687-12-25 04:55:00* Test Item Value Reference Range Interpretation Comments HIV (1&2) Antibody (test code = 02314-1) NON-REACTIVE NONREACTIVE [facility] CenterFluoroscopic procedure less than one hour rohgohst3918-45-98 04:55:00* Test Item Value Reference Range Interpretation Comments HIV P24 Antigen (test code = HIV P24 Antigen) NON-REACTIVE NONREACT VADIM [facility] Hospitalerum or plasma hepatitis B virus surface antigen detection by vfjzdbjvrjr3582-24-65 04:55:00* Test Item Value Reference Range Interpretation Comments Hepatitis B Surface Antigen (test code = 5196-1) NEGATIVE [facility] Hospitalerum hepatitis C virus antibody wadnessnt1868-80-12 04:55:00* Test Item Value Reference Range Interpretation Comments Hepatitis C Antibody (test code = 01860-9) <0.1 Reference Range: 0.0 - 0.9 s/co ratioNegative: < 0.8Indeterminate: 0.8 - 0.9Positive: > 0.9The CDC recommends that a positive HCV antibody resultbe followed up with a HCV Nucleic Acid Amplificationtest (341583).Testing performed by:[facility] [address] [id number]: Yamil Enriquez [facility] Hospitalerum nuclear antibody titer by ofogzupqyrewktiicr8567-18-65 04:55:00* Test Item Value Reference Range Interpretation Comments Anti-Nuclear Antibody Screen (test code = 5048-4) Negative . Negative <1:80 Borderline 1:80 Positive > 1:80Performed at: [employer] [address]Re[address] [id number] 3Lab Director: Yamil Enriquez MD, Phone: [phone] Methodist Clear Lake Hospitalerum or plasma rheumatoid factor measurement (units/volume)2019-06-15 04:55:00* Test Item Value Reference Range Interpretation Comments Rheumatoid Factor (test code = 84425-5) <10.0 0.0-13.9 Performed at: [facility] DISKOVRe[address] [id number] Director: Yamil Enriquez MD, Phone: [phone] Medical CenterCreatine Kinase LH6004-44-19 20:36:00* Test Item Value Reference Range Interpretation Comments Creatine Kinase MB (test code = 81465-7) 3.50 0-5.0 [facility] CenterTroponin A6262-21-81 20:36:00* Test Item Value Reference Range Interpretation Comments Troponin I (test code = PDA2302) 0.036 0-0.300 [facility] CenterCreatine Kinase QO3800-67-91 20:36:00* Test Item Value Reference Range Interpretation Comments Creatine Kinase MB (test code = 62084-8) 3.50 0-5.0 [facility] CenterCreatine Xxweez5876-68-91 20:30:00* Test Item Value Reference Range Interpretation Comments Creatine Kinase (test code = 2157-6) 338 30-200 H [facility] CenterCreatine Qhguzs1788-14-77 20:30:00* Test Item Value Reference Range Interpretation Comments Creatine Kinase (test code = 2157-6) 338 30-200 H [facility] CenterVitamin B12 Ezysf7070-41-71 13:10:00* Test Item Value Reference Range Interpretation Comments Vitamin B12 Level (test code = 91038-9) 1977 213-816 H [facility] CenterFolate2019-10-03 13:10:00* Test Item Value Reference Range Interpretation Comments Folate (test code = 2284-8) 38.3 7.0-15.4 H [facility] CenterVitamin B12 Cdsey8176-34-84 13:10:00* Test Item Value Reference Range Interpretation Comments Vitamin B12 Level (test code = 43344-3) 1977 213-816 H [facility] CenterFolate2019-10-03 13:10:00* Test Item Value Reference Range Interpretation Comments Folate (test code = 2284-8) 38.3 7.0-15.4 H [facility] CenterVitamin B12 Xhfak4801-09-73 13:10:00* Test Item Value Reference Range Interpretation Comments Vitamin B12 Level (test code = 07391-3) 1977 213-816 H [facility] CenterFolate2019-10-03 13:10:00* Test Item Value Reference Range Interpretation Comments Folate (test code = 2284-8) 38.3 7.0-15.4 H [facility] CenterVitamin B12 Iqjro1334-78-02 13:10:00* Test Item Value Reference Range Interpretation Comments Vitamin B12 Level (test code = 09247-0) 1977 213-816 H [facility] CenterFolate2019-10-03 13:10:00* Test Item Value Reference Range Interpretation Comments Folate (test code = 2284-8) 38.3 7.0-15.4 H [facility] CenterThyroid Stimulating Hormone (TSH) 2019-06-14 11:39:00* Test Item Value Reference Range Interpretation Comments Thyroid Stimulating Hormone (TSH) (test code = 10732-8) 1.706 0.350-4.940 [facility] CenterThyroid Stimulating Hormone (TSH) 2019-06-14 11:39:00* Test Item Value Reference Range Interpretation Comments Thyroid Stimulating Hormone (TSH) (test code = 40850-0) 1.706 0.350-4.940 [facility] CenterThyroid Stimulating Hormone (TSH) 2019-06-14 11:39:00* Test Item Value Reference Range Interpretation Comments Thyroid Stimulating Hormone (TSH) (test code = 20130-5) 1.706 0.350-4.940 [facility] CenterThyroid Stimulating Hormone (TSH) 2019-06-14 11:39:00* Test Item Value Reference Range Interpretation Comments Thyroid Stimulating Hormone (TSH) (test code = 49990-5) 1.706 0.350-4.940 [facility] CenterCT ABDOMEN/PELVIS UT1754-93-31 11:26:00 [place] [address] Patient Name: ALEX PETERS MR #: [id number] : 1935 Age/Sex: 84/M Req #: [id number] Adm Physician: BENITO GARCIA MD Ordered by: AVIS FLORES MD Report #: [id number] Location: MED/SURG Room/Bed: [facility] Procedure: [id number] CT/CT AB DOMEN/PELVIS WO Exam Date: 06/14/19 Exam Time: 1040 REPORT STATUS: Signed CT of t he chest, abdomen, and pelvis, without contrast, 06/14/2019. Hist ory: Fever, leukopenia. Comparison: Chest x-ray 06/13/2019. Technique: Technique: Multidetector CT scanning of the chest, abdomen, and pelvis was per formed from the level of the lung apices to the inferior pubic rami without co ntrast. Coronal and sagittal multiplanar reformations were obtained. RAD IATION DOSE: Total DLP: 757 mGy*cm Dose modulation, iterative cory nstruction, and/or weight based adjustment of the mA/kV was utilized to reduce the radiation dose to as low as reasonably achievable. Discussion: Eval uation is limited without IV or oral contrast. CHEST: The heart is enlarged. There is calcification of the coronary arteries. The main pulmonary artery is dilated measuring 3.8 cm in diameter. The aorta is within normal limits for si ze. Multiple calcified mediastinal and hilar lymph nodes are present. The thyr oid is unremarkable. A calcified granuloma is present in the right lower lobe. There are patchy bilateral groundglass opacities. Right middle lobe, lingular, and bibasilar atelectasis are present. A small right pleural effusion is pre sent. ABDOMEN: Calcified granulomata are seen within the liver and spleen . The liver, biliary tree, spleen, pancreas, adrenal glands, and kidneys are o therwise unremarkable. Cholecystectomy clips are present. The abdominal aorta is within normal limits for size. There is no bowel dilatation. Diverticuli ar e present within the distal colon without evidence of adjacent inflammation. T here is no evidence of adenopathy or free fluid. PELVIS: The bladder, prostate, and seminal vesicles are unremarkable. There is no evidence of free fluid or adenopathy. Small fat-containing inguinal hernias are present bilater ally. BONES AND SOFT TISSUES: Advanced degenerative changes are present thr oughout the lumbar spine without evidence of lytic or sclerotic lesion. Postsu rgical changes are noted in both shoulders. IMPRESSION: 1. Cardio megaly and pulmonary enlargement with findings suggestive of mild CHF, with bi lateral atelectasis and a small right pleural effusion. 2. Findings of previou s granulomatous disease within the chest and abdomen. 3. Colonic diverticulosi s without evidence of diverticulitis. 4. Bilateral fat-containing inguinal her nias. Otherwise unremarkable noncontrast exam. Signed by: Jeremiah oliveira 06/14/2019 11:49 AM Dictated By: JEREMIAH ECHOLS MD 1149 Transcribed By: CALVIN on 06/14/19 1149 COPY TO: AVIS FLORES MD CT CHEST [id number] 11:26:00 [place] [address] Patient Name: ALEX PETERS MR #: [id number] : 1935 Age/Sex: 84/M Req #: [id number] Adm Physician: BENITO GARCIA MD Ordered by: AVIS FLORES MD Report #: [id number] Location: MED/SURG Room/Bed: [facility] Procedure: [id number] CT/CT CH EST WO Exam Date: 06/14/19 Exam Time: 1040 REPORT STATUS: Signed CT of the chest, abdomen, and pelvis, without contrast, 06/14/2019. History: Feve r, leukopenia. Comparison: Chest x-ray 06/13/2019. Technique: Technique : Multidetector CT scanning of the chest, abdomen, and pelvis was performed fr om the level of the lung apices to the inferior pubic rami without contrast. Coronal and sagittal multiplanar reformations were obtained. RADIATION DO SE: Total DLP: 757 mGy*cm Dose modulation, iterative reconstructio n, and/or weight based adjustment of the mA/kV was utilized to reduce the radi ation dose to as low as reasonably achievable. Discussion: Evaluation is limited without IV or oral contrast. CHEST: The heart is enlarged. There is calcification of the coronary arteries. The main pulmonary artery is dilated m easuring 3.8 cm in diameter. The aorta is within normal limits for size. Multi ple calcified mediastinal and hilar lymph nodes are present. The thyroid is un remarkable. A calcified granuloma is present in the right lower lobe. There ar e patchy bilateral groundglass opacities. Right middle lobe, lingular, and bib asilar atelectasis are present. A small right pleural effusion is present. ABDOMEN: Calcified granulomata are seen within the liver and spleen. The alba er, biliary tree, spleen, pancreas, adrenal glands, and kidneys are otherwise unremarkable. Cholecystectomy clips are present. The abdominal aorta is within normal limits for size. There is no bowel dilatation. Diverticuli are present within the distal colon without evidence of adjacent inflammation. There is no evidence of adenopathy or free fluid. PELVIS: The bladder, prostate, and seminal vesicles are unremarkable. There is no evidence of free fluid or adenopathy. Small fat-containing inguinal hernias are present bilaterally. BONES AND SOFT TISSUES: Advanced degenerative changes are present throughout the lumbar spine without evidence of lytic or sclerotic lesion. Postsurgical changes are noted in both shoulders. IMPRESSION: 1. Cardiomegaly an d pulmonary enlargement with findings suggestive of mild CHF, with bilateral a telectasis and a small right pleural effusion. 2. Findings of previous granulo matous disease within the chest and abdomen. 3. Colonic diverticulosis without evidence of diverticulitis. 4. Bilateral fat-containing inguinal hernias. Oth erwise unremarkable noncontrast exam. Signed by: Jeremiah Echols on 06/14/20 11:49 AM Dictated By: JEREMIAH ECHOLS MD 1149 Transcribed By: CALVIN on 06/14/19 1149 CO PY TO: AVIS FLORES MD Hemoglobin A1c Wtyqkvv9693-56-78 10:46:00* Test Item Value Reference Range Interpretation Comments Hemoglobin A1c Percent (test code = Hemoglobin A1c Percent) 5.6 4.0-7.0 [facility] CenterHemoglobin A1c Hmkepwx9452-15-50 10:46:00 * Test Item Value Reference Range Interpretation Comments Hemoglobin A1c Percent (test code = Hemoglobin A1c Percent) 5.6 4.0-7.0 [facility] CenterHemoglobin A1c Txsvzje9238-01-35 10:46:00 * Test Item Value Reference Range Interpretation Comments Hemoglobin A1c Percent (test code = Hemoglobin A1c Percent) 5.6 4.0-7.0 [facility] CenterHemoglobin A1c Funmsoz1093-36-94 10:46:00 * Test Item Value Reference Range Interpretation Comments Hemoglobin A1c Percent (test code = Hemoglobin A1c Percent) 5.6 4.0-7.0 [facility] CenterLactic Acid Skjgx8338-57-09 06:10:00* Test Item Value Reference Range Interpretation Comments Lactic Acid Level (test code = Lactic Acid Level) 7.5 4.5- 19.8 [facility] CenterFluoroscopic procedure less than one hour xwphydaa7963-40-19 05:30:00* Test Item Value Reference Range Interpretation Comments Hemoglobin A1c Percent (test code = Hemoglobin A1c Percent) 5.6 4.0-7.0 [facility] CenterBlood cobalamin (vitamin B12) measurement (mass/volume)2019-06-14 05:30:00* Test Item Value Reference Range Interpretation Comments Vitamin B12 Level (test code = 54221-2) 1978 213816 [facility]erum or plasma folate measurement (mass/volume)2019-06-14 05:30:00* Test Item Value Reference Range Interpretation Comments Folate (test code = 2284-8) 38.3 7.0-15.4 [facility] Hospitalerum or plasma thyrotropin measurement by detection limit <= 0.005 miu/l (units/volume)2019-06-14 05:30:00* Test Item Value Reference Range Interpretation Comments Thyroid Stimulating Hormone (TSH) (test code = 92366-9) 1.706 0.350-4.940 [facility] CenterReactive Tushclryvbj2146-65-92 19:40:00* Test Item Value Reference Range Interpretation Comments Reactive Lymphocytes (test code = 97174-4) 2 [facility] Hospitalchistocytes2019-10-02 19:40:00* Test Item Value Reference Range Interpretation Comments Schistocytes (test code = 800-3) X [facility] Hospitalchistocytes2019-10-02 19:40:00* Test Item Value Reference Range Interpretation Comments Schistocytes (test code = 800-3) X [facility] Hospitalchistocytes2019-10-02 19:40:00* Test Item Value Reference Range Interpretation Comments Schistocytes (test code = 800-3) X [facility] Hospitalchistocytes2019-10-02 19:40:00* Test Item Value Reference Range Interpretation Comments Schistocytes (test code = 800-3) X [facility] CenterCHEST SINGLE (NOT PORTABLE)2019-06-13 19:02:00 [facility] [address] [place] [address] Patient Name: ALEX PETERS MR #: [id number] : 1935 Age/Sex: 84/M Req #: [id number] Adm Physician: Ordered by: JEREMIAH FLORES DO Report #: [id number] Location: ER Room/Bed: Procedure: [id number] DX/MARCIA ST SINGLE (NOT PORTABLE) Exam Date: 06/13/19 Exam Ti me: 1850 REPORT STATUS: Signed E XAMINATION: CHEST SINGLE (NOT PORTABLE) INDICATION: CHEST PAIN CO MPARISON: 02/01/2019. FINDINGS: TUBES and LINES: None. LUNGS: Interval development of patchy density in the perihilar region, right greater than left with obscuration of the right cardiac border which may represent asy mmetric pulmonary edema, however, superimposed infection cannot be excluded. P rominence of the central pulmonary vasculature bilaterally. Mild interstitial edema. PLEURA: No pleural effusion or pneumothorax. HEART AND MEDIAST INUM: Cardiac size is moderately enlarged. BONES AND SOFT TISSUES: No acute osseous lesion. Soft tissues are unremarkable. UPPER ABDOMEN: No free air under the diaphragm. IMPRESSION: Findings suggestive of dec ompensated CHF with bilateral central pulmonary edema. Signed by: Dr. Taqueria Montalvo M.D. on 06/13/2019 7:04 PM Dictated By: MANUEL URIAS MD, MD 03 Trans cribed By: CALVIN on 06/13/191903 COPY TO: JEREMIAH FLORES DO B- Type Natriuretic Cztzfsu2460-31-12 18:57:00* Test Item Value Reference Range Interpretation Comments B-Type Natriuretic Peptide (test code = 23000-5) 1225.8 0-100 H [facility] CenterB-Type Natriuretic Uqcozos5013-77-24 18:57:00* Test Item Value Reference Range Interpretation Comments B-Type Natriuretic Peptide (test code = 03980-8) 1225.8 0-100 H [facility] CenterTotal Echafukdk8531-73-71 18:51:00* Test Item Value Reference Range Interpretation Comments Total Bilirubin (test code = 1975-2) 0.8 0.2-1.2 [facility] CenterAspartate Amino Transf (AST/SGOT) 2019-06-13 18:51:00* Test Item Value Reference Range Interpretation Comments Aspartate Amino Transf (AST/SGOT) (test code = Aspartate Amino Transf (AST/SGOT)) 40 5-34 H [facility] CenterAlanine Aminotransferase (ALT/SGPT) 2019-06-13 18:51:00* Test Item Value Reference Range Interpretation Comments Alanine Aminotransferase (ALT/SGPT) (test code = 1742-6) 18 0-55 [facility] CenterTotal Zxgvkkp2664-26-61 18:51:00* Test Item Value Reference Range Interpretation Comments Total Protein (test code = 2885-2) 7.7 6.5-8.1 [facility] CenterAlbumin2019-10-02 18:51:00* Test Item Value Reference Range Interpretation Comments Albumin (test code = 1751-7) 4.1 3.5-5.0 [facility] CenterGlobulin2019-10-02 18:51:00* Test Item Value Reference Range Interpretation Comments Globulin (test code = 87002-5) 3.6 2.3-3.5 H [facility] CenterAlbumin/Globulin Ufhhd0877-48-71 18:51:00 * Test Item Value Reference Range Interpretation Comments Albumin/Globulin Ratio (test code = 1759-0) 1.1 0.8-2.0 [facility] CenterAlkaline Zcbyicidqek5791-80-38 18:51:00* Test Item Value Reference Range Interpretation Comments Alkaline Phosphatase (test code = 6768-6) 71 40-150 [facility] CenterBlood schistocytes detection by light uzujesvixq0915-02-05 18:01:00* Test Item Value Reference Range Interpretation Comments Schistocytes (test code = 800-3) X [facility] CenterBacterial blood ccgxmpk6023-06-33 18:01:00* Test Item Value Reference Range Interpretation Comments Blood Culture (test code = 600-7) STAPH HOMINIS SUB HOMINIS [facility] Hospitalodium Vzprx9721-04-38 06:23:00* Test Item Value Reference Range Interpretation Comments Sodium Level (test code = 2951-2) 135 136-145 L [facility] CenterPotassium Jsqgn3068-93-66 06:23:00* Test Item Value Reference Range Interpretation Comments Potassium Level (test code = 2823-3) 3.4 3.5-5.1 L [facility] CenterChloride Inelb2721-14-82 06:23:00* Test Item Value Reference Range Interpretation Comments Chloride Level (test code = 2075-0) 98 98-107 [facility] CenterCarbon Dioxide Nipvc5667-01-80 06:23:00* Test Item Value Reference Range Interpretation Comments Carbon Dioxide Level (test code = 2028-9) 27 22-29 [facility] CenterAnion Ddj6343-64-84 06:23:00* Test Item Value Reference Range Interpretation Comments Anion Gap (test code = 63834-9) 13.4 8-16 [facility] CenterBlood Urea Cobcifxw7974-02-42 06:23:00* Test Item Value Reference Range Interpretation Comments Blood Urea Nitrogen (test code = 3094-0) 13 7-26 [facility] CenterCreatinine2019-05-24 06:23:00* Test Item Value Reference Range Interpretation Comments Creatinine (test code = 2160-0) 1.08 0.72-1.25 [facility] CenterBUN/Creatinine Gtsnz6457-93-29 06:23:00* Test Item Value Reference Range Interpretation Comments BUN/Creatinine Ratio (test code = 3097-3) 12 03-06 [facility] CenterEstimat Glomerular Filtration Rate 2019-02-02 06:23:00* Test Item Value Reference Range Interpretation Comments Estimat Glomerular Filtration Rate (test code = 843669334) > 60 >60 Ranges were taken from the National Kidney Disease Education Program and the [facility] Kidney Foundation literature.Reference ranges:60 or greater: Owluzc12-90 ( for 3 consecutive months): Chronic kidney disease 15 or less: Kidney failureDallas Medical CenterGlucose Qwfgj7657-57-54 06:23:00* Test Item Value Reference Range Interpretation Comments Glucose Level (test code = HGF0804) 122 74-118 H [facility] CenterCalcium Svdpd3292-01-50 06:23:00* Test Item Value Reference Range Interpretation Comments Calcium Level (test code = 05279-9) 9.5 8.4-10.2 [facility] CenterWhite Blood Cbdqf5272-17-16 06:00:00* Test Item Value Reference Range Interpretation Comments White Blood Count (test code = 6690-2) 3.09 4.8-10.8 L [facility] CenterRed Blood Uhojv2962-66-92 06:00:00* Test Item Value Reference Range Interpretation Comments Red Blood Count (test code = 789-8) 3.16 4.3-5.7 L [facility] CenterHemoglobin2019-05-24 06:00:00* Test Item Value Reference Range Interpretation Comments Hemoglobin (test code = 00343-3) 9.0 14.0-18.0 L [facility] CenterHematocrit2019-05-24 06:00:00* Test Item Value Reference Range Interpretation Comments Hematocrit (test code = 4544-3) 28.0 38.2-49.6 L [facility] CenterMean Corpuscular Dghfvf1982-69-99 06:00:00* Test Item Value Reference Range Interpretation Comments Mean Corpuscular Volume (test code = 787-2) 88.6 81-99 [facility] CenterMean Corpuscular Dejajqoigr2848-76-40 06:00:00* Test Item Value Reference Range Interpretation Comments Mean Corpuscular Hemoglobin (test code = 785-6) 28.5 28-32 [facility] CenterMean Corpuscular Hemoglobin Concent 2019-02-02 06:00:00* Test Item Value Reference Range Interpretation Comments Mean Corpuscular Hemoglobin Concent (test code = 786-4) 32.1 31-35 [facility] CenterRed Cell Distribution Rbaif1989-08-53 06:00:00* Test Item Value Reference Range Interpretation Comments Red Cell Distribution Width (test code = 18024-9) 19.5 11.7 -14.4 H [facility] CenterPlatelet Lggfk7822-85-08 06:00:00* Test Item Value Reference Range Interpretation Comments Platelet Count (test code = 777-3) 468 140-360 H [facility] CenterNeutrophils (%) (Auto)2019-02-02 06:00:00 * Test Item Value Reference Range Interpretation Comments Neutrophils (%) (Auto) (test code = 60426-7) 67.4 38.7-80.0 [facility] CenterLymphocytes (%) (Auto)2019-02-02 06:00:00 * Test Item Value Reference Range Interpretation Comments Lymphocytes (%) (Auto) (test code = 736-9) 23.3 18.0-39.1 [facility] CenterMonocytes (%) (Auto)2019-02-02 06:00:00* Test Item Value Reference Range Interpretation Comments Monocytes (%) (Auto) (test code = 5905-5) 8.4 4.4-11.3 [facility] CenterEosinophils (%) (Auto)2019-02-02 06:00:00 * Test Item Value Reference Range Interpretation Comments Eosinophils (%) (Auto) (test code = 713-8) 0.3 0.0-6.0 [facility] CenterBasophils (%) (Auto)2019-02-02 06:00:00* Test Item Value Reference Range Interpretation Comments Basophils (%) (Auto) (test code = 706-2) 0.0 0.0-1.0 [facility] CenterIM GRANULOCYTES %2019-02-02 06:00:00* Test Item Value Reference Range Interpretation Comments IM GRANULOCYTES % (test code = IM GRANULOCYTES %) 0.6 0.0- 1.0 [facility] CenterNeutrophils # (Auto)2019-02-02 06:00:00* Test Item Value Reference Range Interpretation Comments Neutrophils # (Auto) (test code = 751-8) 2.1 2.1-6.9 [facility] CenterLymphocytes # (Auto)2019-02-02 06:00:00* Test Item Value Reference Range Interpretation Comments Lymphocytes # (Auto) (test code = 35663-9) 0.7 1.0-3.2 L [facility] CenterMonocytes # (Auto)2019-02-02 06:00:00* Test Item Value Reference Range Interpretation Comments Monocytes # (Auto) (test code = 742-7) 0.3 0.2-0.8 [facility] CenterEosinophils # (Auto)2019-02-02 06:00:00* Test Item Value Reference Range Interpretation Comments Eosinophils # (Auto) (test code = 711-2) 0.0 0.0-0.4 [facility] CenterBasophils # (Auto)2019-02-02 06:00:00* Test Item Value Reference Range Interpretation Comments Basophils # (Auto) (test code = 704-7) 0.0 0.0-0.1 [facility] CenterAbsolute Immature Granulocyte (auto 2019-02-02 06:00:00* Test Item Value Reference Range Interpretation Comments Absolute Immature Granulocyte (auto (joão t code = Absolute Immature Granulocyte (auto) 0.02 0-0.1 [facility] CenterCreatine Kinase CK7842-03-37 15:06:00* Test Item Value Reference Range Interpretation Comments Creatine Kinase MB (test code = 57684-1) 2.10 0-5.0 [facility] CenterTroponin M2742-37-56 15:06:00* Test Item Value Reference Range Interpretation Comments Troponin I (test code = HCX3802) 0.018 0-0.300 [facility] CenterCreatine Ujvsxo4431-42-82 14:54:00* Test Item Value Reference Range Interpretation Comments Creatine Kinase (test code = 2157-6) 440 30-200 H [facility] CenterCHEST 2 PORUC5918-59-92 06:21:00 [facility] [address] [place] [address] Patient Name: ALEX PETERS MR #: [id number] : 1935 Age/Sex: 83/M Req #: [id number] Adm Physician: AVIS FLORES MD Ordered by: JAIRON LAM MD Report #: [id number] Location: MED/SURG3 Room/Bed: [facility] Procedure: [id number] D X/CHEST 2 VIEWS Exam Date: Exam Time: REPORT STATUS: Signed EXAMINATION: PA and lateral views of the chest. COMPARISON: 01/31/2019 CLINICAL HISTORY: Congestive heart failure DISCUSSION: Lines/tubes: None. Hemanth gs: Central pulmonary venous congestion. Areas of linear atelectasis. Pleu ra: No pleural effusion or pneumothorax. Heart and mediastinum: Mild card iomegaly Bones and soft tissues: No acute bony abnormalities. IM PRESSION: Stable chest with mild cardiomegaly and central pulmonary venous co ngestion Signed by: Dr. Magi Gtz M.D. on 02/01/2019 6:22 AM Dictated By: MAGI GTZ MD 1 Transcribed By: CALVIN on 02/01/19621 COPY TO: JAIRON LAM MD Differential Total Cells Jbwmgsr4441-11-25 18:54:00* Test Item Value Reference Range Interpretation Comments Differential Total Cells Counted (test code = Differen tial Total Cells Counted) 100 [facility] CenterNeutrophils % (Manual)2019-01-31 18:54:00 * Test Item Value Reference Range Interpretation Comments Neutrophils % (Manual) (test code = 29240-0) 77 40-74 H [facility] CenterLymphocytes % (Manual)2019-01-31 18:54:00 * Test Item Value Reference Range Interpretation Comments Lymphocytes % (Manual) (test code = 737-7) 17 19-48 L [facility] CenterMonocytes % (Manual)2019-01-31 18:54:00* Test Item Value Reference Range Interpretation Comments Monocytes % (Manual) (test code = 744-3) 6 3.4-9.0 [facility] CenterD-Dimer Quantitative (PE/DVT)2019-01-31 18:26:00* Test Item Value Reference Range Interpretation Comments D-Dimer Quantitative (PE/DVT) (test code = 36130-6) 0.60 0. 00-0.45 H [facility] CenterB-Type Natriuretic Ypgddmm8261-81-42 18:26:00* Test Item Value Reference Range Interpretation Comments B-Type Natriuretic Peptide (test code = 51006-0) 1378.5 0-100 H [facility] CenterD-Dimer Quantitative (PE/DVT)2019-01-31 18:26:00* Test Item Value Reference Range Interpretation Comments D-Dimer Quantitative (PE/DVT) (test code = 55241-3) 0.60 0. 00-0.45 H [facility] CenterD-Dimer Quantitative (PE/DVT)2019-01-31 18:26:00* Test Item Value Reference Range Interpretation Comments D-Dimer Quantitative (PE/DVT) (test code = 53516-1) 0.60 0. 00-0.45 H [facility] CenterD-Dimer Quantitative (PE/DVT)2019-01-31 18:26:00* Test Item Value Reference Range Interpretation Comments D-Dimer Quantitative (PE/DVT) (test code = 86519-9) 0.60 0. 00-0.45 H [facility] CenterD-Dimer Quantitative (PE/DVT)2019-01-31 18:26:00* Test Item Value Reference Range Interpretation Comments D-Dimer Quantitative (PE/DVT) (test code = 34224-2) 0.60 0. 00-0.45 H [facility] CenterT[facility] Grjfgcggm7849-46-43 18:19:00* Test Item Value Reference Range Interpretation Comments Total Bilirubin (test code = 1975-2) 0.6 0.2-1.2 [facility] CenterAspartate Amino Transf (AST/SGOT) 2019-01-31 18:19:00* Test Item Value Reference Range Interpretation Comments Aspartate Amino Transf (AST/SGOT) (test code = Aspartate Amino Transf (AST/SGOT)) 35 5-34 H [facility] CenterAlanine Aminotransferase (ALT/SGPT) 2019-01-31 18:19:00* Test Item Value Reference Range Interpretation Comments Alanine Aminotransferase (ALT/SGPT) (test code = 1742-6) 12 0-55 [facility] CenterTotal Akjxndb5851-17-85 18:19:00* Test Item Value Reference Range Interpretation Comments Total Protein (test code = 2885-2) 8.0 6.5-8.1 [facility] CenterAlbumin2019-05-22 18:19:00* Test Item Value Reference Range Interpretation Comments Albumin (test code = 1751-7) 3.8 3.5-5.0 [facility] CenterGlobulin2019-05-22 18:19:00* Test Item Value Reference Range Interpretation Comments Globulin (test code = 48161-7) 4.2 2.3-3.5 H [facility] CenterAlbumin/Globulin Wltva0644-34-61 18:19:00 * Test Item Value Reference Range Interpretation Comments Albumin/Globulin Ratio (test code = 1759-0) 0.9 0.8-2.0 [facility] CenterAlkaline Ejvweblkuqo4839-63-12 18:19:00* Test Item Value Reference Range Interpretation Comments Alkaline Phosphatase (test code = 6768-6) 90 40-150 [facility] CenterCHEST 2 ZBDTG5831-85-83 18:11:00 [facility] [address] [address] Patient Name: ALEX PETERS MR #: [id number] : 1935 Age/Sex: 83/M Req #: [id number] Adm Physician: Ordered by: JAIRON LAM MD Report #: [id number] Location: ER Room/Bed: Procedure: [id number] D X/CHEST 2 VIEWS Exam Date: 01/31/19 Exam Time: 1730 REPORT STATUS: Signed EXAMINA TION: PA and lateral views of the chest. COMPARISON: Chest portable, 12/14/19. CLINICAL HISTORY: Shortness of breath, history of CHF DISCUS STAS: Lines/tubes: None. Lungs: Lungs are well-inflated. Bilateral i nterstitial opacities extending from the reynaldo, system with interstitial pulmon jermaine edema. No consolidation. Pleura: There is no pleural effusion or pneum othorax. Heart and mediastinum: Enlarged cardiac silhouette. Central pulm onary venous congestion. Bones and soft tissues: No acute bony abnormali ties. Degenerative changes in the thoracic spine IMPRESSION: 1. En larged cardiac silhouette, central pulmonary venous congestion and bilateral p erihilar interstitial edema, suggesting decompensated CHF. Sign ed by: Dr. Mathieu Walls M.D. on 01/31/2019 6:12 PM Dictated By: TINY WALLS MD 11 Tra nscribed By: CALVIN on 01/31/191811 COPY TO: JAIRON LAM MD Bedside Fdooity4949-66-35 07:09:00* Test Item Value Reference Range Interpretation Comments Bedside Glucose (test code = 37900-7) 113 70-120 Meter ID: [id number] Medical CenterBedside Glucose 2018-12-15 07:09:00* Test Item Value Reference Range Interpretation Comments Bedside Glucose (test code = 90908-9) 113 70-120 Meter ID: [id number] Medical CenterVitamin B12 Level 2018-12-14 07:19:00* Test Item Value Reference Range Interpretation Comments Vitamin B12 Level (test code = 83300-5) 1320 213-816 H [facility] CenterFolate2019-04-04 07:19:00* Test Item Value Reference Range Interpretation Comments Folate (test code = 2284-8) 29.3 7.0-15.4 H [facility] CenterVitamin B12 Vdpjs5113-66-53 07:19:00* Test Item Value Reference Range Interpretation Comments Vitamin B12 Level (test code = 38112-4) 1320 213-816 H [facility] CenterFolate2019-04-04 07:19:00* Test Item Value Reference Range Interpretation Comments Folate (test code = 2284-8) 29.3 7.0-15.4 H [facility] CenterThyroid Stimulating Hormone (TSH) 2018-12-14 06:50:00* Test Item Value Reference Range Interpretation Comments Thyroid Stimulating Hormone (TSH) (test code = 81609-4) 1.487 0.350-4.940 [facility] CenterThyroid Stimulating Hormone (TSH) 2018-12-14 06:50:00* Test Item Value Reference Range Interpretation Comments Thyroid Stimulating Hormone (TSH) (test code = 61613-6) 1.487 0.350-4.940 [facility] CenterIron Hpwak0843-13-35 06:30:00* Test Item Value Reference Range Interpretation Comments Iron Level (test code = 2498-4) 57 65-175 L [facility] CenterTotal Iron Binding Vcglhbev0879-21-02 06:30:00* Test Item Value Reference Range Interpretation Comments Total Iron Binding Capacity (test code = 2500-7) 288 261-4 78 [facility] CenterPercent Iron Zuaqigapbe0884-20-92 06:30:00* Test Item Value Reference Range Interpretation Comments Percent Iron Saturation (test code = 2502-3) 20 15-50 [facility] CenterTransferrin2019-04-04 06:30:00* Test Item Value Reference Range Interpretation Comments Transferrin (test code = 3034-6) 206 174-364 [facility] CenterTriglycerides Cbcbd2398-93-39 06:30:00* Test Item Value Reference Range Interpretation Comments Triglycerides Level (test code = 2571-8) 71 0-149 [facility] CenterCholesterol Cyemb4970-39-48 06:30:00* Test Item Value Reference Range Interpretation Comments Cholesterol Level (test code = 2093-3) 110 0-199 Less than 200 mg/dL Low Ixax426 - 239 mg/dL Borderline Znha856 m g/dl and greater High Risk [facility] CenterLDL Eciewhqtejf6880-06-95 06:30:00* Test Item Value Reference Range Interpretation Comments LDL Cholesterol (test code = 2089-1) 48 60-130 L [facility] CenterHDL Pqfyqxwfggi4628-14-77 06:30:00* Test Item Value Reference Range Interpretation Comments HDL Cholesterol (test code = 2085-9) 48 40-60 [facility] CenterCholesterol/HDL Wjkst7068-30-03 06:30:00 * Test Item Value Reference Range Interpretation Comments Cholesterol/HDL Ratio (test code = 9830-1) 2.3 3.9-4.7 L [facility] CenterIron Beapg2024-15-32 06:30:00* Test Item Value Reference Range Interpretation Comments Iron Level (test code = 2498-4) 57 65-175 L [facility] CenterTotal Iron Binding Qjsdbghd1743-42-00 06:30:00* Test Item Value Reference Range Interpretation Comments Total Iron Binding Capacity (test code = 2500-7) 288 261-4 78 [facility] CenterPercent Iron Oztmmmpskn7809-84-28 06:30:00* Test Item Value Reference Range Interpretation Comments Percent Iron Saturation (test code = 2502-3) 20 15-50 [facility] CenterTransferrin2019-04-04 06:30:00* Test Item Value Reference Range Interpretation Comments Transferrin (test code = 3034-6) 206 174-364 [facility] CenterTriglycerides Msbvj5741-53-05 06:30:00* Test Item Value Reference Range Interpretation Comments Triglycerides Level (test code = 2571-8) 71 0-149 [facility] CenterCholesterol Gacjc0125-22-49 06:30:00* Test Item Value Reference Range Interpretation Comments Cholesterol Level (test code = 2093-3) 110 0-199 Less than 200 mg/dL Low Uqpb006 - 239 mg/dL Borderline Uilp605 m g/dl and greater High Risk [facility] CenterLDL Emfomfrduwe1960-42-12 06:30:00* Test Item Value Reference Range Interpretation Comments LDL Cholesterol (test code = 2089-1) 48 60-130 L [facility] CenterHDL Zdbkpgerooi4959-34-29 06:30:00* Test Item Value Reference Range Interpretation Comments HDL Cholesterol (test code = 2085-9) 48 40-60 [facility] CenterCholesterol/HDL Jzurv1350-02-32 06:30:00 * Test Item Value Reference Range Interpretation Comments Cholesterol/HDL Ratio (test code = 9830-1) 2.3 3.9-4.7 L [facility] CenterTriglycerides Gmppe2615-38-16 06:30:00* Test Item Value Reference Range Interpretation Comments Triglycerides Level (test code = 2571-8) 71 0-149 [facility] CenterCholesterol Pofgo6038-53-73 06:30:00* Test Item Value Reference Range Interpretation Comments Cholesterol Level (test code = 2093-3) 110 0-199 Less than 200 mg/dL Low Wcow482 - 239 mg/dL Borderline Cbml399 m g/dl and greater High Risk [facility] CenterLDL Xrkvnwlpxku8307-34-57 06:30:00* Test Item Value Reference Range Interpretation Comments LDL Cholesterol (test code = 2089-1) 48 60-130 L [facility] Apjbwardnul1706-01-23 06:30:00* Test Item Value Reference Range Interpretation Comments HDL Cholesterol (test code = 2085-9) 48 40-60 [facility] CenterCholesterol/HDL Xbfxz8931-05-03 06:30:00 * Test Item Value Reference Range Interpretation Comments Cholesterol/HDL Ratio (test code = 9830-1) 2.3 3.9-4.7 L [facility] CenterTriglycerides Dusnl6377-24-74 06:30:00* Test Item Value Reference Range Interpretation Comments Triglycerides Level (test code = 2571-8) 71 0-149 [facility] CenterCholesterol Gwfqp1494-37-86 06:30:00* Test Item Value Reference Range Interpretation Comments Cholesterol Level (test code = 2093-3) 110 0-199 Less than 200 mg/dL Low Icsz685 - 239 mg/dL Borderline Huoi633 m g/dl and greater High Risk [facility] CenterLDL Kvmbwgewicp3232-64-76 06:30:00* Test Item Value Reference Range Interpretation Comments LDL Cholesterol (test code = 2089-1) 48 60-130 L [facility] Bgbofstobvm8894-13-57 06:30:00* Test Item Value Reference Range Interpretation Comments HDL Cholesterol (test code = 2085-9) 48 40-60 [facility] CenterCholesterol/HDL Wwcgr8263-07-76 06:30:00 * Test Item Value Reference Range Interpretation Comments Cholesterol/HDL Ratio (test code = 9830-1) 2.3 3.9-4.7 L [facility] CenterTriglycerides Knzyg8211-35-65 06:30:00* Test Item Value Reference Range Interpretation Comments Triglycerides Level (test code = 2571-8) 71 0-149 [facility] CenterCholesterol Sczji4294-30-18 06:30:00* Test Item Value Reference Range Interpretation Comments Cholesterol Level (test code = 2093-3) 110 0-199 Less than 200 mg/dL Low Wrix288 - 239 mg/dL Borderline Emed157 m g/dl and greater High Risk [facility] CenterLDL Xauoasoybwl5425-54-62 06:30:00* Test Item Value Reference Range Interpretation Comments LDL Cholesterol (test code = 2089-1) 48 60-130 L [facility] CenterHDL Bdcfwkzerjr4569-76-19 06:30:00* Test Item Value Reference Range Interpretation Comments HDL Cholesterol (test code = 2085-9) 48 40-60 [facility] CenterCholesterol/HDL Jbwns8569-50-68 06:30:00 * Test Item Value Reference Range Interpretation Comments Cholesterol/HDL Ratio (test code = 9830-1) 2.3 3.9-4.7 L [facility] CenterHemoglobin A1c Nejplvn0023-45-46 06:09:00 * Test Item Value Reference Range Interpretation Comments Hemoglobin A1c Percent (test code = Hemoglobin A1c Percent) 5.5 4.0-7.0 [facility] CenterHemoglobin A1c Tmwjgau9158-85-96 06:09:00 * Test Item Value Reference Range Interpretation Comments Hemoglobin A1c Percent (test code = Hemoglobin A1c Percent) 5.5 4.0-7.0 [facility] Qkgnu3540-75-60 06:05:00* Test Item Value Reference Range Interpretation Comments Sodium Level (test code = 2951-2) 136 136-145 [facility] CenterPotassium Rwzfp6638-98-39 06:05:00* Test Item Value Reference Range Interpretation Comments Potassium Level (test code = 2823-3) 3.1 3.5-5.1 L [facility] CenterChloride Xmxsk5986-35-79 06:05:00* Test Item Value Reference Range Interpretation Comments Chloride Level (test code = 2075-0) 97 98-107 L [facility] CenterCarbon Dioxide Rztrm4723-52-07 06:05:00* Test Item Value Reference Range Interpretation Comments Carbon Dioxide Level (test code = 2028-9) 29 22-29 [facility] CenterAnion Bwm9454-61-11 06:05:00* Test Item Value Reference Range Interpretation Comments Anion Gap (test code = 78365-0) 13.1 8-16 [facility] CenterBlood Urea Ezebzvth1345-96-74 06:05:00* Test Item Value Reference Range Interpretation Comments Blood Urea Nitrogen (test code = 3094-0) 17 7-26 [facility] CenterCreatinine2019-04-04 06:05:00* Test Item Value Reference Range Interpretation Comments Creatinine (test code = 2160-0) 1.01 0.72-1.25 [facility] CenterBUN/Creatinine Fgnui3210-96-83 06:05:00* Test Item Value Reference Range Interpretation Comments BUN/Creatinine Ratio (test code = 3097-3) 17 6- [facility] CenterEstimat Glomerular Filtration Rate 2018-12-14 06:05:00* Test Item Value Reference Range Interpretation Comments Estimat Glomerular Filtration Rate (test code = 176727303) > 60 >60 Ranges were taken from the National Kidney Disease Education Program and the [facility] [employer] literature.Reference ranges:60 or greater: Bsypos93-99 ( for 3 consecutive months): Chronic kidney disease 15 or less: Kidney failureDallas Medical CenterGlucose Uhiwz9498-10-11 06:05:00* Test Item Value Reference Range Interpretation Comments Glucose Level (test code = DLK7634) 121 74-118 H [facility] CenterCalcium Mdcqm9737-24-35 06:05:00* Test Item Value Reference Range Interpretation Comments Calcium Level (test code = 08287-6) 9.9 8.4-10.2 [facility] CenterWhite Blood Snkdo0192-02-19 05:58:00* Test Item Value Reference Range Interpretation Comments White Blood Count (test code = 6690-2) 3.47 4.8-10.8 L [facility] CenterRed Blood Dbhiq8500-48-78 05:58:00* Test Item Value Reference Range Interpretation Comments Red Blood Count (test code = 789-8) 3.37 4.3-5.7 L [facility] CenterHemoglobin2019-04-04 05:58:00* Test Item Value Reference Range Interpretation Comments Hemoglobin (test code = 69689-0) 9.8 14.0-18.0 L [facility] CenterHematocrit2019-04-04 05:58:00* Test Item Value Reference Range Interpretation Comments Hematocrit (test code = 4544-3) 29.8 38.2-49.6 L [facility] CenterMean Corpuscular Ztvylk7047-27-91 05:58:00* Test Item Value Reference Range Interpretation Comments Mean Corpuscular Volume (test code = 787-2) 88.4 81-99 [facility] CenterMean Corpuscular Htoosimbtx0672-77-54 05:58:00* Test Item Value Reference Range Interpretation Comments Mean Corpuscular Hemoglobin (test code = 785-6) 29.1 28-32 [facility] CenterMean Corpuscular Hemoglobin Concent 2018-12-14 05:58:00* Test Item Value Reference Range Interpretation Comments Mean Corpuscular Hemoglobin Concent (test code = 786-4) 32.9 31-35 [facility] CenterRed Cell Distribution Rnhow1816-89-75 05:58:00* Test Item Value Reference Range Interpretation Comments Red Cell Distribution Width (test code = 62858-9) 19.0 11.7 -14.4 H [facility] CenterPlatelet Yemta1943-89-00 05:58:00* Test Item Value Reference Range Interpretation Comments Platelet Count (test code = 777-3) 441 140-360 H [facility] CenterNeutrophils (%) (Auto)2018-12-14 05:58:00 * Test Item Value Reference Range Interpretation Comments Neutrophils (%) (Auto) (test code = 86709-3) 68.2 38.7-80.0 [facility] CenterLymphocytes (%) (Auto)2018-12-14 05:58:00 * Test Item Value Reference Range Interpretation Comments Lymphocytes (%) (Auto) (test code = 736-9) 25.1 18.0-39.1 [facility] CenterMonocytes (%) (Auto)2018-12-14 05:58:00* Test Item Value Reference Range Interpretation Comments Monocytes (%) (Auto) (test code = 5905-5) 5.8 4.4-11.3 [facility] CenterEosinophils (%) (Auto)2018-12-14 05:58:00 * Test Item Value Reference Range Interpretation Comments Eosinophils (%) (Auto) (test code = 713-8) 0.3 0.0-6.0 [facility] CenterBasophils (%) (Auto)2018-12-14 05:58:00* Test Item Value Reference Range Interpretation Comments Basophils (%) (Auto) (test code = 706-2) 0.0 0.0-1.0 [facility] CenterIM GRANULOCYTES %2018-12-14 05:58:00* Test Item Value Reference Range Interpretation Comments IM GRANULOCYTES % (test code = IM GRANULOCYTES %) 0.6 0.0- 1.0 [facility] CenterNeutrophils # (Auto)2018-12-14 05:58:00* Test Item Value Reference Range Interpretation Comments Neutrophils # (Auto) (test code = 751-8) 2.4 2.1-6.9 [facility] CenterLymphocytes # (Auto)2018-12-14 05:58:00* Test Item Value Reference Range Interpretation Comments Lymphocytes # (Auto) (test code = 54633-1) 0.9 1.0-3.2 L [facility] CenterMonocytes # (Auto)2018-12-14 05:58:00* Test Item Value Reference Range Interpretation Comments Monocytes # (Auto) (test code = 742-7) 0.2 0.2-0.8 [facility] CenterEosinophils # (Auto)2018-12-14 05:58:00* Test Item Value Reference Range Interpretation Comments Eosinophils # (Auto) (test code = 711-2) 0.0 0.0-0.4 [facility] CenterBasophils # (Auto)2018-12-14 05:58:00* Test Item Value Reference Range Interpretation Comments Basophils # (Auto) (test code = 704-7) 0.0 0.0-0.1 [facility] CenterAbsolute Immature Granulocyte (auto 2018-12-14 05:58:00* Test Item Value Reference Range Interpretation Comments Absolute Immature Granulocyte (auto (joão t code = Absolute Immature Granulocyte (auto) 0.02 0-0.1 [facility] CenterCreatine Arodau3666-10-84 22:18:00* Test Item Value Reference Range Interpretation Comments Creatine Kinase (test code = 2157-6) 543 30-200 H [facility] CenterCreatine Kinase US0270-16-18 22:18:00* Test Item Value Reference Range Interpretation Comments Creatine Kinase MB (test code = 44178-6) 3.30 0-5.0 [facility] CenterTroponin V1563-82-33 22:18:00* Test Item Value Reference Range Interpretation Comments Troponin I (test code = ROF5098) 0.041 0-0.300 [facility] CenterUrine QLK8585-21-98 07:11:00* Test Item Value Reference Range Interpretation Comments Urine WBC (test code = 5821-4) NONE 0-5 [facility] CenterUrine AZD7051-30-59 07:11:00* Test Item Value Reference Range Interpretation Comments Urine RBC (test code = 76364-0) NONE 0-5 [facility] CenterUrine Mhfwqkxz7626-70-56 07:11:00* Test Item Value Reference Range Interpretation Comments Urine Bacteria (test code = 28840-5) RARE NONE [facility] CenterUrine Epithelial Ewvvi1762-06-56 07:11:00 * Test Item Value Reference Range Interpretation Comments Urine Epithelial Cells (test code = 59124-8) RARE NONE [facility] CenterUrine Transitional Epithelial Cells 2018-12-13 07:11:00* Test Item Value Reference Range Interpretation Comments Urine Transitional Epithelial Cells (test code = 8249-5) RARE NONE [facility] CenterUrine AMJ1725-46-88 07:11:00* Test Item Value Reference Range Interpretation Comments Urine WBC (test code = 5821-4) NONE 0-5 [facility] CenterUrine ULL9044-77-63 07:11:00* Test Item Value Reference Range Interpretation Comments Urine RBC (test code = 60775-7) NONE 0-5 [facility] CenterUrine Xvaqjpxg6670-24-66 07:11:00* Test Item Value Reference Range Interpretation Comments Urine Bacteria (test code = 12850-4) RARE NONE [facility] CenterUrine Epithelial Edddb2268-36-50 07:11:00 * Test Item Value Reference Range Interpretation Comments Urine Epithelial Cells (test code = 67849-4) RARE NONE [facility] Transitional Epithelial Cells 2018-12-13 07:11:00* Test Item Value Reference Range Interpretation Comments Urine Transitional Epithelial Cells (test code = 8249-5) RARE NONE [facility] Transitional Epithelial Cells 2018-12-13 07:11:00* Test Item Value Reference Range Interpretation Comments Urine Transitional Epithelial Cells (test code = 8249-5) RARE NONE [facility] CenterUrine Transitional Epithelial Cells 2018-12-13 07:11:00* Test Item Value Reference Range Interpretation Comments Urine Transitional Epithelial Cells (test code = 8249-5) RARE NONE [facility] CenterUrine Transitional Epithelial Cells 2018-12-13 07:11:00* Test Item Value Reference Range Interpretation Comments Urine Transitional Epithelial Cells (test code = 8249-5) RARE NONE [facility] CenterUrine Hgtfl7211-75-07 06:35:00* Test Item Value Reference Range Interpretation Comments Urine Color (test code = 5778-6) YELLOW YELLOW [facility] CenterUrine Eliatzp9593-85-38 06:35:00* Test Item Value Reference Range Interpretation Comments Urine Clarity (test code = 16553-2) CLEAR CLEAR [facility] CenterUrine Specific Zhtrqgr5484-04-94 06:35:00 * Test Item Value Reference Range Interpretation Comments Urine Specific [place] (test code = 5811-5) 1.010 1.010-1.02 5 [facility] CenterUrine dY6105-05-15 06:35:00* Test Item Value Reference Range Interpretation Comments Urine pH (test code = 29055-2) 6.5 5-7 [facility] CenterUrine Leukocyte Gjslgnon9860-04-89 06:35:00* Test Item Value Reference Range Interpretation Comments Urine Leukocyte Esterase (test code = 5799-2) NEGATIVE NEGATIVE [facility] CenterUrine Lofeatc9120-65-98 06:35:00* Test Item Value Reference Range Interpretation Comments Urine Nitrite (test code = 08265-7) NEGATIVE NEGATIVE [facility] CenterUrine Cpdwfkz8109-32-59 06:35:00* Test Item Value Reference Range Interpretation Comments Urine Protein (test code = 5804-0) TRACE NEGATIVE H [facility] Glucose (UA)2018-12-13 06:35:00* Test Item Value Reference Range Interpretation Comments Urine Glucose (UA) (test code = 2349-9) NEGATIVE NEGATIVE [facility] Nuuqcqm5211-84-57 06:35:00* Test Item Value Reference Range Interpretation Comments Urine Ketones (test code = 00615-5) NEGATIVE NEGATIVE [facility] Zgjufpqzgvvy7471-88-17 06:35:00* Test Item Value Reference Range Interpretation Comments Urine Urobilinogen (test code = 41784-7) 0.2 0.2-1 [facility] Psawyatcm5754-88-35 06:35:00* Test Item Value Reference Range Interpretation Comments Urine Bilirubin (test code = 1978-6) NEGATIVE NEGATIVE [facility] Ooxku8930-37-12 06:35:00* Test Item Value Reference Range Interpretation Comments Urine Blood (test code = 25269-7) NEGATIVE NEGATIVE [facility] Nztgd2956-72-90 06:35:00* Test Item Value Reference Range Interpretation Comments Urine Color (test code = 5778-6) YELLOW YELLOW [facility] CenterUrine Wywbawj8171-78-76 06:35:00* Test Item Value Reference Range Interpretation Comments Urine Clarity (test code = 26495-2) CLEAR CLEAR [facility] CenterUrine Specific Cxnkrcs4090-62-24 06:35:00 * Test Item Value Reference Range Interpretation Comments Urine Specific [place] (test code = 5811-5) 1.010 1.010-1.02 5 [facility] CenterUrine rG3344-62-97 06:35:00* Test Item Value Reference Range Interpretation Comments Urine pH (test code = 28486-7) 6.5 5-7 [facility] Leukocyte Nsxzkoro3199-45-27 06:35:00* Test Item Value Reference Range Interpretation Comments Urine Leukocyte Esterase (test code = 5799-2) NEGATIVE NEGATIVE [facility] Vsohofz4867-21-42 06:35:00* Test Item Value Reference Range Interpretation Comments Urine Nitrite (test code = 22925-3) NEGATIVE NEGATIVE [facility] Hesqcnn6942-50-71 06:35:00* Test Item Value Reference Range Interpretation Comments Urine Protein (test code = 5804-0) TRACE NEGATIVE H [facility] Glucose (UA)2018-12-13 06:35:00* Test Item Value Reference Range Interpretation Comments Urine Glucose (UA) (test code = 2349-9) NEGATIVE NEGATIVE [facility] Puacqnw6598-25-89 06:35:00* Test Item Value Reference Range Interpretation Comments Urine Ketones (test code = 06732-8) NEGATIVE NEGATIVE [facility] Totxlddraluj9756-99-90 06:35:00* Test Item Value Reference Range Interpretation Comments Urine Urobilinogen (test code = 01255-3) 0.2 0.2-1 [facility] CenterUrine Gauskumzt9308-00-87 06:35:00* Test Item Value Reference Range Interpretation Comments Urine Bilirubin (test code = 1977-6) NEGATIVE NEGATIVE [facility] Wwins4547-80-55 06:35:00* Test Item Value Reference Range Interpretation Comments Urine Blood (test code = 78372-0) NEGATIVE NEGATIVE [facility] CenterTotal Zyxedupoz3220-24-41 04:47:00* Test Item Value Reference Range Interpretation Comments Total Bilirubin (test code = 1974-2) 0.7 0.2-1.2 [facility] CenterAspartate Amino Transf (AST/SGOT) 2018-12-13 04:47:00* Test Item Value Reference Range Interpretation Comments Aspartate Amino Transf (AST/SGOT) (test code = Aspartate Amino Transf (AST/SGOT)) 36 5-34 H [facility] CenterAlanine Aminotransferase (ALT/SGPT) 2018-12-13 04:47:00* Test Item Value Reference Range Interpretation Comments Alanine Aminotransferase (ALT/SGPT) (test code = 1742-6) 16 0-55 [facility] CenterTotal Lykypdt9147-52-62 04:47:00* Test Item Value Reference Range Interpretation Comments Total Protein (test code = 2885-2) 7.6 6.5-8.1 [facility] CenterAlbumin2019-04-03 04:47:00* Test Item Value Reference Range Interpretation Comments Albumin (test code = 1751-7) 4.1 3.5-5.0 [facility] CenterGlobulin2019-04-03 04:47:00* Test Item Value Reference Range Interpretation Comments Globulin (test code = 52698-5) 3.5 2.3-3.5 [facility] CenterAlbumin/Globulin Duhwq7388-36-27 04:47:00 * Test Item Value Reference Range Interpretation Comments Albumin/Globulin Ratio (test code = 1759-0) 1.2 0.8-2.0 [facility] CenterAlkaline Erujogawciu4810-93-89 04:47:00* Test Item Value Reference Range Interpretation Comments Alkaline Phosphatase (test code = 6768-6) 70 40-150 [facility] CenterLipase2019-04-03 04:47:00* Test Item Value Reference Range Interpretation Comments Lipase (test code = 3040-3) 30 8-78 [facility] CenterLipase2019-04-03 04:47:00* Test Item Value Reference Range Interpretation Comments Lipase (test code = 3040-3) 30 8-78 [facility] CenterLipase2019-04-03 04:47:00* Test Item Value Reference Range Interpretation Comments Lipase (test code = 3040-3) 30 8-78 [facility] CenterLipase2019-04-03 04:47:00* Test Item Value Reference Range Interpretation Comments Lipase (test code = 3040-3) [facility] CenterLipase2019-04-03 04:47:00* Test Item Value Reference Range Interpretation Comments Lipase (test code = 3040-3) [facility] CenterB-Type Natriuretic Vlobzqy4759-77-32 04:46:00* Test Item Value Reference Range Interpretation Comments B-Type Natriuretic Peptide (test code = 01145-4) 1630.0 0-100 H [facility] CenterCHEST SINGLE (PORTABLE)2018-12-13 04:40:00 [facility] [address] [address] Patient Name: ALEX PETERS MR #: [id number] : 1935 Age/Sex: 83/M Req #: [id number] Adm Physician: Ordered by: MALINA ANGELA MD Report #: [id number] Location: ER Room/Bed: Procedure: [id number] DX/ CHEST SINGLE (PORTABLE) Exam Date: 12/13/18 Exam Dillan e: [id number] REPORT STATUS: Signed Ex amination: Single AP view of the chest. COMPARISON: None. INDICATION: Difficulty breathing DISCUSSION: Lines/tubes: None. Lungs: Pulmonary edema Pleura: No pleural effusion or pneumothorax. Heart a nd mediastinum: Cardiomegaly Bones and soft tissues: No acute bony abnorm alities. IMPRESSION: 1. Lore with pulmonary edema Si gned by: Dr. Magi Gtz M.D. on 12/13/2018 4:41 AM Dictated By: MAGI GTZ MD 0 T ranscribed By: CALVIN on 12/13/18440 COPY TO: MALINA ANGELA MD MEPLDYGHJEVJ0272-41-58 08:45:0012.5[facility] JbakmaiSTTLVYLATMLP2768-23-87 08:45:0071[facility] WzjbevbLVBDEHKIHTAS9376-28-66 08:45:0016[facility] FWBMLJMOSNGV0371-02-71 08:45:000.99[facility] BcncvsdAVBIFSCXYDAS8132-60-77 08:45:50421Lihosysr HfznqhxMUEPXBVACOTM4185-95-10 08:45:12854Dylkzmxs [place] XRNCVCEZBJPH9527-09-71 08:45:003.5[facility] DcxomneYMWHRRSHUJCI7605-03-24 08:45:0098[facility] XoktvrbRILYWZYWCDAM8935-08-20 08:45:0026[facility] WXFQTWWSFCHX8146-74-93 08:45:008.7[facility] PkbhsxyFOFTRZSMQN7054-57-69 08:45:00 3.2[facility] PwtcsfpVLXZLIFZMN8805-58-19 08:45:000.4[facility]annHEMATOLOGY 2016-11-22 08:45:001.8[facility] XwqpmxtGWDILHVOUR2257-60-57 08:45:00Normal (11/22/16 3:45 AM)[facility] VnfxcgpQVDUWRSISF8401-32-19 08:45:00Normal (11/22/16 3:45 AM)[facility] AkulottPHYYVQEWHH1312-32-68 08:45:0059.2[facility] [place] RJSXXHWFKF4239-95-35 08:45:0032.0[facility] VyiomssSKIRZTGESG5394-69-68 08:45:00 0.3[facility] EvkoqqvOGAUWRGWDY3000-82-27 08:45:008.1[facility]annHEMATOLOGY 2016-11-22 08:45:000.4[facility] VobdszaHRBEPIJPQI3297-13-37 08:45:0034.4[facility] HkkoalkRFYWIPWRFW7370-18-82 08:45:00* Test Item Value Reference Range Interpretation Comments MCH (test code = MCH) 28.0 pg 27.0-31.0 [facility] KiptqkkPFTVJECQSO7719-71-70 08:45:0015.2[facility] HermannHEMATOLOGY 2016-11-22 08:45:26680Dssjbchb DjinpcrTXUISIEQZI0262-53-13 08:45:008.4[facility] QiqlftnKDWGUMZLWE0155-34-10 08:45:0035.9[facility] GfhfqaoKJUEAVAOZQ1941-43-04 08:45:0081.3[facility] QhgxbnqOQAZJGPEZY1496-51-24 08:45:0012.3[facility] HLBBNHOKHR6456-63-53 08:45:004.41[facility] PpoqmayVXCAUGMWZZ1332-55-88 08:45:00 5.5[facility] HermannCHEM JZYMW8741-65-94 10:17:0076[facility] HermannCHEM PANEL 2016-11-21 10:17:0027[facility] HermannCHEM HLOOE0354-88-11 10:17:0098[facility] HermannCHEM MWTPO0164-38-11 10:17:0012.7[facility] HermannCHEM NMHHQ2554-30-19 10:17:008.5[facility] HermannCHEM EIJJO9584-26-05 10:17:58372Zhaaodys HermannCHEM OUPIU6861-29-30 10:17:0013[facility] HermannCHEM LTNNL0608-21-38 10:17:000.94 [facility] HermannCHEM FHCNP8966-78-03 10:17:003.7[facility] HermannCHEM PANEL 2016-11-21 10:17:95830Kwlnurlz SctllejUHKTGDVRFN5809-56-82 10:17:0012.8[facility] GqfezlaHBKASTAFUW6869-91-93 10:17:0037.4[facility] FrbedxuTUIFRSADSR0449-62-93 10:17:0082.2[facility] VfscxtmLIBTREFBRP1916-98-14 10:17:00* Test Item Value Reference Range Interpretation Comments MCH (test code = MCH) 28.1 pg 27.0-31.0 [facility] PcxhcgdPNIFEQWMPM9616-51-65 10:17:004.55[facility] HermannHEMATOLOGY 2016-11-21 10:17:003.5[facility] KcheanrPENUOAHFZL6805-80-67 10:17:80549Jqbxlgrj LjmhnvuGRSIIBPMMY4568-12-22 10:17:0015.5[facility] IdnhrioZOIYJHAEOF7005-77-24 10:17:008.7[facility] NxpydmkPTSUTEDJUD5567-12-94 10:17:0034.1[facility] WOOCREFYCE2408-03-93 10:17:002.0[facility] UstnarmFULICATAAR7330-28-11 10:17:009.8 [facility] ExhozjaFJUZLSQBYZ7439-22-50 10:17:000.2[facility] HermannHEMATOLOGY 2016-11-21 10:17:000.9[facility] NhidlbgLYJZEBKSBP1216-23-99 10:17:0032.7[facility] TbhqjjoYERBWNMCQC0972-14-14 10:17:0056.4[facility] XkzedacVKUURWHUUJ5653-66-85 10:17:000.3[facility] QsgcozgBDDWBPKKFO1716-14-86 10:17:001.1[facility] BZVCAZXJKCGU0084-76-70 22:13:0028[facility] QrftdesTLYABFJULLFZ5164-36-75 22:13:00 8.9[facility] KivfpfaLZKMPPWBWDXH4093-35-77 22:13:0012.8[facility] LUKXPWMNGSVL2637-97-22 22:13:0056[facility] NprsuvdSPXRRWHTGPYB1756-16-90 22:13:00 96[facility] NbnijxgCJWBXUYUOTJH6778-46-62 22:13:85459Yanhyyrv HermannELECTROLYTES 2016-11-20 22:13:003.8[facility] NgqzwxtWCZBJQLCXAXQ1849-88-51 22:13:14276Xwhdkjni SwjdfagJQZBMVOGSZUH7819-16-93 22:13:0014[facility] WempezkJMXDHTDVCZTK2219-77-82 22:13:001.20[facility] HermannCHEM CIVPA3456-34-36 11:10:172.4[facility] HermannCHEM GLYEU4237-53-21 04:26:002.6[facility] HermannCHEM WCTVQ4343-82-33 04:26:002.1 [facility] HermannCARDIAC ERWRFMH2491-00-57 23:16:98218Nuupyucj HermannCARDIAC LLBHNFH2872-19-01 23:16:00<0.02[facility] HermannCARDIAC KKTORRU4289-88-48 23:16:000.8[facility] HermannCARDIAC TDPFDVM0903-03-26 23:16:003.3[facility] CHEM QGJQZ4284-11-32 23:16:002.9[facility] HermannCHEM JBRIW4654-12-45 23:16:002.2 [facility]annURINE AND FCSSN7107-55-69 19:27:00Negative (11/19/16 1:27 PM) [facility] SKNCG7922-69-25 19:27:00Negative (11/19/16 1:27 PM) [facility] SHHXE8583-26-79 19:27:00Negative *NA*(11/19/16 1:27 PM) [facility] LQHQS3871-71-42 19:27:00Negative (11/19/16 1:27 PM) [facility] EFXNQ1270-42-23 19:27:006.0[facility]ann[facility] AND OMHGY6656-77-96 19:27:00Clear (11/19/16 1:27 PM)[facility] STOOL 2016-11-19 19:27:001.011[facility] AND USEUC6482-64-89 19:27:001 [facility] AND PWRCW9502-42-95 19:27:00<1[facility] HermannHEMATOLOGY 2016-11-19 19:20:000.3[facility] NlsfwygFATWSAESOK2202-02-33 19:20:001.1[facility] CwdlptfCXCOHUHLHY9104-69-05 19:20:003.4[facility] RgsttybFSREFYCVKK6348-90-59 19:20:000.1[facility] QbzpbhtLFVEORULRV6764-13-14 19:20:005.3[facility] ZMJLWUIIJE4246-40-12 19:20:0023.7[facility] IjqozvlJJJYOQOYJT7950-65-77 19:20:00 0.8[facility] TffbfynPCEVQYFVPS8567-27-81 19:20:0070.1[facility] HermannHEMATOLOGY 2016-11-19 19:20:00Normal (11/19/16 1:20 PM)[facility] IemskdgDVUYXTBIVM5749-47-37 19:20:00Normal (11/19/16 1:20 PM)[facility] FppfgexSASJDCSFRF0092-02-94 19:20:00 81.1[facility] FzrulmpJSMONWKXWV2548-53-96 19:20:0013.1[facility] HermannHEMATOLOGY 2016-11-19 19:20:0015.1[facility] WrqnlouGYRGKUNDJT7317-77-71 19:20:0034.6[facility] AmmdzgqMSYOKCBAXI7697-06-68 19:20:00* Test Item Value Reference Range Interpretation Comments MCH (test code = MCH) 28.1 pg 27.0-31.0 [facility] RhxvkucPCWMLEWCSG8922-12-00 19:20:84678Psvclgdr HermannHEMATOLOGY 2016-11-19 19:20:0037.8[facility] VvnrmxgEJQTUKXYRC0323-70-87 19:20:008.8[facility] JopipfhTHBIBTULZJ4928-36-77 19:20:004.8[facility] TusqjyoFEMGIENPTL5887-11-11 19:20:004.66[facility] HermannCARDIAC QZSAIUR1602-71-94 19:11:25749Bwvcoscw HermannCARDIAC RJPFVHD9293-22-43 19:11:004.0[facility] HermannCARDIAC ENZYMES 2016-11-19 19:11:001.0[facility] HermannCARDIAC SXZZMXT3721-27-36 19:11:00<0.02 [facility] HermannCARDIAC UHIWEND3044-81-82 19:11:51692Dmtvkzld HermannCHEM PANEL 2016-11-19 19:11:000.7[facility] HermannCHEM WASCS0446-80-35 19:11:003.5[facility] HermannCHEM QMSXU1709-55-92 19:11:003.7[facility] HermannCHEM SBGIZ7676-17-46 19:11:001.1[facility] HermannCHEM ILSHT3266-73-17 19:11:007.2[facility] HermannCHEM GOBJJ4028-13-97 19:11:0033[facility] HermannCHEM MYKBO2157-34-43 19:11:00744 [facility]annCHEM BAXNP1990-76-12 19:11:0025[facility] HermannCHEM PANEL 2016-11-19 19:11:0012[facility] HermannCHEM FWAZT6534-95-18 19:11:002.0[facility] MrniecaNUCSKADBTU6511-89-32 19:11:00* Test Item Value Reference Range Interpretation Comments PTT (test code = PTT) 32.0 s 22.9-35.8 [facility] IxlhmvbCFMKPPTZGK1131-14-61 19:11:00* Test Item Value Reference Range Interpretation Comments PT (test code = PT) 13.8 s 12.0-14.7 [facility] JsxnzatJMFEQJIFZT4097-86-46 19:11:001.04[facility] HermannSPECIAL DRNHQTXXK8387-82-36 20:49:006.3[facility] HermannCHEM AAHUY7743-29-85 08:35:0067 [facility]annCHEM NQYME0743-41-57 08:35:23109Scakmchj HermannCHEM PANEL 2016-02-12 08:35:009.1[facility] HermannCHEM VVNAE8941-46-37 08:35:0026[facility] HermannCHEM JKRLP5500-56-97 08:35:0022[facility] HermannCHEM ACELN8436-92-92 08:35:003.8[facility] HermannCHEM MPWLJ4275-48-74 08:35:37657Itzlmtod HermannCHEM GMRRX6742-61-46 08:35:001.05[facility] HermannCHEM OQDHL4844-02-52 08:35:26094 [facility]annCHEM QYKNB8160-96-50 08:35:0011.8[facility] HermannCHEM PANEL 2016-02-12 08:35:002.7[facility] HermannCHEM SVZEP0886-99-72 08:35:002.3[facility] XxknfnpTPVDFHFJTP2919-22-46 08:35:003.9[facility] NcrnwgeFOWSQDSZRD7944-63-56 08:35:000.5[facility] RetxhntDLWTMEPEQK9348-19-18 08:35:000.1[facility] HOOXUNGZNW9462-62-37 08:35:0069.2[facility] PgrqxstRKLPSPOLRF3886-13-63 08:35:00 1.2[facility] FmynnvyKNRFSEKWIU5217-68-67 08:35:000.5[facility] HermannHEMATOLOGY 2016-02-12 08:35:009.0[facility] YjbbmzmQRHZTVXYZI5597-16-61 08:35:0021.2[facility] EwxambqAJLEGXOFUL2063-84-56 08:35:005.6[facility] ZankctzMHYHPLHKTA5437-14-34 08:35:009.7[facility] YmmaqpbXRSZQIWUCF7922-42-55 08:35:0016.2[facility] UWPHCMABMN3538-68-74 08:35:89655Ncpiityu GtshvmgZZUNKCBSUH4029-19-94 08:35:00* Test Item Value Reference Range Interpretation Comments MCH (test code = MCH) 26.5 pg 27.0-31.0 [facility] AdivadrALUNLZBNCC9661-40-51 08:35:0032.8[facility] HermannHEMATOLOGY 2016-02-12 08:35:0080.7[facility] AbfhjbiYZTZUJMZXS7750-41-76 08:35:0011.9[facility] CahreifDSSXTQLVDL3905-94-87 08:35:0036.1[facility] AwrhhzvRQMKUMRXNS1564-94-39 08:35:004.48[facility] HermannCHEM PBMEK9008-91-27 15:54:002.5[facility] HermannCHEM ZLLVN8553-31-72 15:54:004.9[facility] HermannCHEM FKSAP4070-06-13 15:54:003.2 [facility] HermannCHEM VJRWP3759-52-49 15:54:008.1[facility] HermannCHEM PANEL 2016-02-11 15:54:000.7[facility] HermannCHEM UPNHD3460-06-37 15:54:0042[facility] HermannCHEM KWMVM0140-44-16 15:54:19592Ybdojoyt HermannCHEM DNOPK2730-29-07 15:54:0049[facility] HermannCHEM BDEOQ0388-67-35 15:54:000.5[facility] HermannCHEM JMGBK6575-64-19 15:54:000.6[facility] HermannCHEM IDKUP1577-86-63 15:54:000.1 [facility] HermannCHEM THNEL0026-30-98 15:54:002.4[facility] HermannCHEM PANEL 2016-02-11 15:54:0060[facility] HermannCHEM EQKPW4955-14-41 15:54:009.6[facility] HermannCHEM AETUI6648-61-80 15:54:0024[facility] HermannCHEM YNIZV3933-57-71 15:54:0011.5[facility] HermannCHEM VHAMK7471-83-00 15:54:001.14[facility] CHEM PBKJX3664-38-25 15:54:0021[facility] HermannCHEM TLJSY7676-35-76 15:54:80912 [facility] HermannCHEM AHGDQ3403-66-04 15:54:004.5[facility] HermannCHEM PANEL 2016-02-11 15:54:48176Hcccougo HermannCHEM QBPLT4146-90-06 15:54:25589Gnuivuae VtswcbkQWYXXRQBRD1499-08-98 15:54:00Normal (02/11/16 10:54 AM)[facility] ZTAYOPGEFS3840-32-04 15:54:0069.3[facility] TrcyxugNELGSPFEKP8412-42-19 15:54:00 Normal (02/11/16 10:54 AM)[facility] LzqcoulSYDLMCLCSB6458-20-43 15:54:00Moderate *ABN*(02/11/16 10:54 AM)[facility] ZizgmwoJFYQRJMTND9928-87-18 15:54:000.5[facility] YdzxgalYXNFAMPIFM1766-76-14 15:54:001.4[facility] JzzftxnAYOIZPCXWK6761-82-26 15:54:004.4[facility] QzzlywePUWGAQLLZE2570-43-66 15:54:000.3[facility] KAHATJVYNK4105-27-34 15:54:007.1[facility] IzelhatLDWAGTMCFZ1375-77-10 15:54:00 22.8[facility] VpbpuqzGRLJXCNDDV6610-13-85 15:54:000.5[facility] HermannHEMATOLOGY 2016-02-11 15:54:00* Test Item Value Reference Range Interpretation Comments MCH (test code = MCH) 27.3 pg 27.0-31.0 [facility] CysiyzaAJDGZOESVE0969-29-44 15:54:0040.7[facility] HermannHEMATOLOGY 2016-02-11 15:54:0013.8[facility] YzjwocvUERZNJQGBW9297-08-07 15:54:0010.1[facility] RzlnzirACHGIFIDKZ6282-45-86 15:54:62157Eteckubm OmslyjgQLJNYIPIIY3305-47-47 15:54:0016.5[facility] KhilikoQWZGBMAKEL8631-87-72 15:54:0033.8[facility] MEHOLXSSUK5019-39-02 15:54:0080.6[facility] HfqojxtAVOZIAUJNW9876-07-93 15:54:00 6.4[facility] EnbezumVHRVKVUELE0821-38-19 15:54:005.05[facility] HermannIMMUNOLOGY 2016-02-11 15:54:0017.0[facility] HermannCHEM WQFTQ5580-74-77 09:20:002.3[facility] CddmxjkSQJNOMGBSP2848-16-99 20:09:000.96[facility] GotazwrGSKCELKXMK4224-79-19 20:09:00* Test Item Value Reference Range Interpretation Comments PT (test code = PT) 13.1 s 12.0-14.7 [facility] FqrwzvaCZOBYMEROWXOP6106-55-61 18:18:81328Pzesmvak HermannENDOCRINOLOGY 2016-02-08 18:18:0016.1[facility] HwtpxrvLAJOPFTUPWBZ1330-30-12 13:35:229.7 [facility] GicgbweDATVFKIMXMXD4254-61-55 13:35:2281[facility] HermannELECTROLYTES 2016-02-08 13:35:29263Faecprlw WfojmoiLBLOGCXSBCPV1958-32-74 13:35:44863Hyvsdcrw IodomjeAWYIFSDNDANY9802-44-77 13:35:223.7[facility] TyiithsFAPBGFSHLLWJ6392-70-36 13:35:2228[facility] TidyjcpJFDTHRTQDJIK0128-48-62 13:35:229.1[facility] FJKBFMQHEQOX6451-39-81 13:35:220.88[facility] YojgslqOXAXXICSKBQG9055-12-50 13:35:10249Wqlnjnlt IoxjwbtZTGYCCVWVXHQ7971-48-20 13:35:2213[facility] IGVPAAMAFX8163-04-48 13:35:2266.5[facility] RnfetddDKOMXSEZYP3153-41-33 13:35:22 Normal (02/08/16 8:35 AM)[facility] GkfqddfMYCVELHGPA5780-72-07 13:35:22Moderate *ABN*(02/08/16 8:35 AM)[facility] XktfypgBKJEVSRGOG7536-34-75 13:35:220.5[facility] PlioeetXREBLEYHJB1502-15-32 13:35:2212.5[facility] TnuhyfvBWNPXKARFR6097-72-88 13:35:2220.4[facility] BphtuvzXLRVXAZQCR2292-29-97 13:35:220.8[facility] AQYPWVWCOC7555-25-81 13:35:222.6[facility] BukrmihPMZZJFJTEW8577-42-59 13:35:220.5 [facility] VfjlizsYRUGILYMLB9002-74-42 13:35:220.1[facility] HermannHEMATOLOGY 2016-02-08 13:35:2216.4[facility] XktwlupTIHAJFJQHW8691-35-70 13:35:2233.2[facility] WofwqpzEBDSJTITHL0230-18-61 13:35:22* Test Item Value Reference Range Interpretation Comments MCH (test code = MCH) 26.9 pg 27.0-31.0 [facility] WcrqzxkLPWSPALUED9268-01-85 13:35:2280.9[facility] HermannHEMATOLOGY 2016-02-08 13:35:36582Fucwlyqo KpdzkghCNHROYVIAG0423-59-51 13:35:229.1[facility] LegbsteFZIGQWODFP9920-10-41 13:35:2237.3[facility] SwwzbyyAEHVWPSWKB9056-82-67 13:35:2212.4[facility] UnufkqiTXDNQKTTLH9301-97-21 13:35:224.61[facility] GSDJIEEVWU9982-21-28 13:35:223.9[facility] HermannCHEM MHNMN2448-63-90 13:00:00 0.19[facility] SdqulauTLILLEVHUV4478-60-67 00:30:000.7[facility] HermannCHEM PANEL 2016-02-07 03:15:002.6[facility] HermannCARDIAC MIDMWZA8589-44-66 04:40:001.3 [facility] HermannCARDIAC DKOUTHU9896-38-94 04:40:000.4[facility] HermannCARDIAC FVOTGRH8352-34-52 04:40:000.02[facility] HermannCARDIAC ZNILKIW1800-97-04 04:40:00 346[facility] HermannCARDIAC XHVYKUR9854-80-22 22:35:000.3[facility] HermannCARDIAC NZLSRFD8678-15-26 22:35:001.3[facility] HermannCARDIAC DZZCHYY2095-91-39 22:35:00< 0.02[facility] HermannCARDIAC DCTYEON7857-47-38 22:35:90514Hxfhktvc [facility] ULPDTVRQXE9088-44-05 22:35:000.3[facility] HermannCARDIAC YROUWHR8675-67-11 10:15:29788Euezbyax HermannCHEM FEOIK4905-05-44 10:15:000.83[facility] HermannCHEM WHSSQ3918-91-72 09:31:0011[facility] HermannCHEM JNGRQ1741-68-83 09:31:000.7 [facility] HermannCHEM TXPPD7708-21-43 09:31:004.0[facility] HermannCHEM PANEL 2016-02-03 09:31:0028[facility] HermannCHEM GXWMQ5520-52-01 09:31:001.1[facility] HermannCHEM IRJQU7668-55-41 09:31:96425Kkfweieo HermannCHEM PTDIL6045-12-38 09:31:0015[facility] HermannCHEM JAALW7923-24-86 09:31:002.9[facility] HermannCHEM QSQOZ2094-06-10 09:31:006.9[facility] MfaualhVSJJZLMNDX1865-44-05 09:31:000.2 [facility] YnedjgoWNMLYXESMI2448-22-42 00:36:00* Test Item Value Reference Range Interpretation Comments PTT (test code = PTT) 36.9 s 22.9-35.8 [facility]annSPECIAL ZOWDRTLLJ7496-26-01 00:36:0043.6[facility] HermannSPECIAL QIDALSNAS4202-35-09 00:36:0019.16[facility] HermannSPECIAL MJQOPGWPZ3697-61-07 00:36:0043.9[facility] HermannCHEM BYLHD2821-64-28 19:06:002.0[facility] HermannCHEM MRIBQ5730-43-66 19:06:000.40[facility]annURINE AND BFQZB3945-83-44 19:06:00 Trace *ABN*(02/02/16 2:06 PM)[facility]annURINE AND INSTZ5930-65-55 19:06:00* Test Item Value Reference Range Interpretation Comments UA pH (test code = UA pH) 6.5 1 5.0-8.0 [facility]UR[facility] AND VCJKG3494-64-08 19:06:00Small *ABN*(02/02/16 2:06 PM) [facility]UR[facility] AND KWFOX9710-92-74 19:06:00Large *ABN*(02/02/16 2:06 PM) [facility] AND SZQMK7358-61-59 19:06:001.0[facility]annUR[facility] AND FKHUO4551-05-15 19:06:00Positive *ABN*(02/02/16 2:06 PM)[facility]annUR[facility] AND DAMVO4924-26-66 19:06:00* Test Item Value Reference Range Interpretation Comments UA Spec Grav (test code = UA Spec Grav) 1.020 1 [facility]UR[facility] AND ZQTHM7988-67-86 19:06:00Orange *ABN*(02/02/16 2:06 PM) [facility] AND DSQGM6720-11-29 19:06:00Cloudy *ABN*(02/02/16 2:06 PM) [facility] AND RMVNH2801-80-88 19:06:00Performed (02/02/16 2:06 PM) [facility] HermannCHEM MPGCC8611-51-59 16:32:478.3[facility] HermannCHEM PANEL 2016-02-02 16:32:473.8[facility] HermannCHEM MMNEK2735-07-78 16:32:4718[facility] HermannCHEM PVNGZ7587-35-52 16:32:83863Vhihwpnx HermannCHEM HXMKJ9077-51-90 16:32:471.5[facility] HermannCHEM KAMDO6879-49-24 16:32:4725[facility] HermannCHEM MDVXT0968-21-14 16:32:4710[facility] HermannCHEM SBVMY6017-73-14 16:32:474.5 [facility] HermannCHEM ZRANR5380-54-70 16:32:470.8[facility] HermannCARDIAC ENZYMES 2016-02-02 16:32:33772Gmiwwjse HermannCARDIAC HTKHDCW3455-76-48 16:32:000.4 [facility]annCARDIAC WBTTPLL8496-78-75 16:32:002.0[facility] HermannCARDIAC YGIDPNR2890-51-56 16:32:00<0.02[facility] XeobwryLTRNUKUIRH4945-94-93 16:00:000.1 [facility]
[2020-04-17 04:50] LABS: ALBUMIN 3.7 g/dL (3.5-5.0); ALBUMIN/GLOBULIN RATIO 0.8 (0.8-2.0); ANION GAP 17.1 mmol/L (8-16); CALCIUM 10.1 mg/dL (8.4-10.2); CREATININE, SERUM 1.5 mg/dL (0.72-1.25); POTASSIUM 4.1 mmol/L (3.5-5.1)
[2020-04-17 04:56] LABS: CREATINE KINASE MB 0.5 ng/mL (0-5.0)
[2020-04-17] MEDS: PIPER-TAZ 3.375 GM 50 ML IV SCH ×2 (05:00→11:55)
[2020-04-17] MEDS ORDERED: KETOROLAC TROMETHAMINE 30 MG/ML VIAL IV STA (06:32)
--- NOTE | 2020-04-17 07:11 | Diagnostic Imaging Report ---
EXAMINATION: CHEST SINGLE (PORTABLE) INDICATION: Fever and difficulty urinating. COMPARISON: Radiograph dated 09/22/2019 FINDINGS: TUBES and LINES: None. LUNGS: Patchy bibasilar opacities. PLEURA: No pleural effusion or pneumothorax. HEART AND MEDIASTINUM: The cardiomediastinal silhouette is unremarkable. BONES AND SOFT TISSUES: No acute osseous lesion. Soft tissues are unremarkable. UPPER ABDOMEN: No free air under the diaphragm. IMPRESSION: Patchy bibasilar opacities could represent atelectasis or pneumonia/viral pneumonia. Radiographic follow-up in 6-8 weeks to ensure resolution is recommended. Signed by: Harish Kraus MD on 04/17/2020 7:08 AM
--- OUTSIDE RECORDS SUMMARY | 2020-04-17 07:18 | XMS REPORT | Clinical Summary ---
Author Author [facility] Organization [facility] Address Unknown Phone Unavailable Care Team Providers Care Engine Monitor Name Role Phone Eric Martinez DO PCP [...] Type Patient Eric Peters Personal/F Self 1935 [phone] (Home) [address] [place] [address] Advance Directives For more information, please contact: [phone] Patient Laboratory Tech Explanation Type Date Recorded Advance Directives, Living Will and Medical Power of Soldering Machine Tender
--- OUTSIDE RECORDS SUMMARY | 2020-04-17 07:18 | XMS REPORT | Continuity of Care Document ---
Author Author [employer] ALEX Dudley Organization [employer] Address Unknown Phone Unavailable Care Team Providers Care Scrap Hooker Name Role Phone [employer] Unavailable Un available Problems Problem Status Onset Date Classification Date Reported Comments Source Pain in right knee 12/06/2017 03/07/2018 [facility] [place] HTN/DM Active 11/18/2016 [facility] HYPONATREMIA, HYPOKALEMIA Acti ve 11/18/2016 [facility] UNABLE TO VOID Active 02/02/2016 [facility] Diabetes mellitus (disorder) R esolved Problem [facility], [facility] [place], [facility] [place] Hypertensive disorder, systemic arterial (disorder) Resolved Problem 12/24/2018 [place], [facility] [place], [place], [facility] [place] Arthritis (disorder) Resolved Problem 12/24/2018 [facility] [place], [place] [facility] [place] Vertigo (finding) Resolved Problem 12/24/2018 [facility] [place], [facility] [place] Dizziness and giddiness 01/18/2018 [facility] [place] Cerebral ischemia 01/18/2018 [facility] [place] Other specified disorders of brain 01/18/2018 [facility] [place] Pain in left elbow 03/07/2018 [facility] [place] Secondary hypertension, unspecified 11/25/2016 [facility] SEPSIS DUE TO UNSPECIFIED STAPHYLOCOCCUS Active [facility] SECONDARY HYPERTENSION, UNSPECIFIED Active [facility] HYPO-OSMOLALITY AND HYPONATREMIA Active [facility] HYPOKALEMIA Active [facility] Medications Medication Details Route Status Patient Instructions Ordering Provider Order Date Source Metformin hydrochloride 1000 MG Oral Tablet 1,000 mg = 1 tab, PO, BID, # 60 tab, 0 Refill(s) Active 11/22/2016 [facility] carvedilol 12.5 mg oral tablet 12.5 mg = 1 tab, PO, Q12H, # 60 tab, 0 Refill(s) Active 11/22/2016 [facility] Amoxicillin 875 MG / Clavulanate 125 MG Oral Tablet [Augmentin 875-mg] 1 tab, PO, Q12H, X 10 day, # 20 tab, 0 R efill(s) Active 11/22/2016 [facility] Acetaminophen 300 MG / Codeine Phosphate 30 MG Oral Tablet [Tylenol with Codeine #3] 1 - 2 tab, PO, Q4H, PRN Pain, X 2 day, # 20 tab, 0 Refill(s) No Longer Active 11/22/2016 [facility] Amoxicillin 875 MG / Clavulanate 125 MG Oral Tablet [Augmentin 875-mg] Notes: With food. (Same as: Augmentin 87 5) Inactive 11/22/2016 [facility] Metformin hydrochloride 1000 MG Oral Tablet Notes: (Same as: Glucophage) Take with meal No Longer Active 11/21/2016 [facility] Glipizide Notes: (Same as: Glu cotrol) 30 min before meals. No Longer Active 11/21/2016 [facility] Benzocaine 15 MG / Menthol 3.6 MG Lozeng e [Cepacol Sore Throat Pain Relief 15/3.6] Notes: Same as: Cepacol No Longer Active 11/21/2016 [facility] Amlodipine Notes: (Same as: No rvasc) No Longer Active 11/20/2016 [facility] metoprolol tartrate Notes: (Sa me as: Lopressor) Inactive 11/20/2016 [facility] Coreg Notes: Give with food. ( Same As: Coreg) No Longer Active 11/20/2016 [facility] Fluticasone propionate 0.05 MG/ACTUAT Me tered Dose Nasal Odon [Flonase] Notes: (Same as: Flonase) No Longer Active 11/20/2016 [facility] tamsulosin Notes: (Same As: Fl omax) "Do Not Crush" No Longer Active 11/19/2016 [facility] Doxazosin Notes: (Same as: Car dura) No Longer Active 11/19/2016 [facility] benzonatate 100 mg, Route: PO, Drug form: CAP, TID, Dosing Weight 217, kg, Start date: 11/19/16 17:00:00 AFFIRMATIVE ACTION OFFICER, Duration: 30 day, Stop date: 12/19/16 13:00:00 CDT Inactive 11/19/2016 [facility] Acetaminophen 325 MG / Hydrocodone Shmuel trate 5 MG Oral Tablet Notes: (Same as: Cohagen 325/5) Do not ex ceed 4gm/day of acetaminophen. No Longer Active 11/19/2016 [facility] Acetaminophen 300 MG / Codeine Phosphate 30 MG Oral Tablet [Tylenol with Codeine #3] Notes: Do not exceed 4gm/day of acetamin ophen. (Same as: Tylenol with Codeine # 3) No Longer Active 11/19/2016 [facility] benzonatate Notes: (Same As: Oscar Bui) "Do Not Crush" No Longer Active 11/19/2016 [facility] Hydralazine Notes: (Same as: A presoline) Push over 5 minutes No Longer Active 11/19/2016 [facility] Insulin, Aspart, Human Notes: Roll in palms of hands gently; Do not shake vigorously. (Same as: NovoLOG) "single patient use only" WASTE: F/P - Black; E - Municipal Trash Bin Stable for 28 days at room temperature. Expires in days from Date No Longer Active 11/19/2016 [facility] Dextrose 50% Syringe 12.5 gm, 25 mL, Route: IVP, Drug Form: INJ, Dosing Weight 217, kg, PRN, PRN Blood Glucose Results, Start date: 11/19/16 13:33:00 AFFIRMATIVE ACTION OFFICER, Duration: 30 day, Stop date: 12/19/16 14:32:00 CDT No Longer Active 11/19/2016 [facility] Glucagon 1 mg, Route: IM, Drug form: PDR/INJ, PRN, Dosing Weight 217, kg, PRN Blood Glucose Results, Start date: 11/19/16 13:33:00 AFFIRMATIVE ACTION OFFICER, Duration: 30 day, Stop date: 12/19/16 14:32:00 CDT No Longer Active 11/19/2016 [facility] Fluticasone propionate 0.05 MG/ACTUAT Me tered Dose Nasal Odon [Flonase] Notes: (Same as: Flonase) Inactive 11/19/2016 [facility] Docusate Sodium 100 MG Oral Capsule Notes: (Same as: Colace) (Do Not Crush) No Longer Active 11/19/2016 [facility] Acetaminophen 325 MG / Hydrocodone Shmuel trate 5 MG Oral Tablet Notes: (Same as: Cohagen 325/5) Do not ex ceed 4gm/day of acetaminophen. Inactive 11/19/2016 [facility] Ondansetron Notes: (Same as: Dannie chong) MEDICATION WASTE Product Size: 4 mg Product Wasted: ___ mg No Longer Active 11/19/2016 [facility] Acetaminophen Notes: Do not ex ceed 4 gm/day. (Same as: Tylenol) No Longer Active 11/19/2016 [facility] sodium phosphate + D5W 240 mL 30 mmol, 10 mL, Route: IVPB, PRN, Dosing Weight 217, kg, PRN Abnormal Lab Result, For NON-ICU Patients Only., Start date: 11/19/16 13:13:00 AFFIRMATIVE ACTION OFFICER, Duration: 30 day, Stop date: 12/19/16 14:12:00 CDT No Longer Active 11/19/2016 [facility] sodium phosphate + D5W 245 mL 15 mmol, 5 mL, Route: IVPB, PRN, Dosing Weight 217, kg, PRN Abnormal Lab Result, For NON-ICU Patients Only., Start date: 11/19/16 13:13:00 AFFIRMATIVE ACTION OFFICER, Duration: 30 day, Stop date: 12/19/16 14:12:00 CDT No Longer Active 11/19/2016 [facility] Calcium Gluconate Notes: WASTE : F/P - Sink; E - Municipal Trash Bin No Longer Active 11/19/2016 [facility] Magnesium Sulfate Notes: WASTE : F/P - Sink; E - Municipal Trash Bin No Longer Active 11/19/2016 [facility] Magnesium Oxide Notes: (Same a s: Mag-Ox 400) Magnesium oxide [id number] elemental magnesium Dose=____mg magnesium oxide (___mg elemental magnesium) No Longer Active 11/19/2016 [facility] potassium phosphate-sodium phosphate 250 mg-280 mg-160 mg oral powder for reconstitution Notes: (Same as: Phos-NaK) Each 1.5 gm pkt has 250mg phosphorous. Mix w/2.5oz water and stir. No Longer Active 11/19/2016 [facility] potassium phosphate + sodium chloride 0.9% INJ 240 mL Notes: (Same as: K Phosphate.) 1 mMol phoshate has 1.47 mEq potassium Infuse over 4 hours No Longer Active 11/19/2016 [facility] potassium phosphate + sodium chloride 0.9% INJ 245 mL Notes: (Same as: K Phosphate.) 1 mMol phoshate has 1.47 mEq potassium Infuse over 4 hours No Longer Active 11/19/2016 [facility] potassium chloride Notes: (Joaquin e as: Potassium Chloride) No Longer Active 11/19/2016 [facility] Sodium Chloride 0.154 MEQ/ML Injectable Solution 1,000 mL, Rate: 100 ml/hr, Infuse over: 10 hr, Route: IV, Dosing Weight 217 kg, Total Volume: 1,000, Start date: 11/19/16 12:58:00 AFFIRMATIVE ACTION OFFICER, Duration: 30 day, Stop date: 12/19/16 12:57:00 CDT No Longe r Active 11/19/2016 [facility] metoprolol tartrate Notes: ( me as: Lopressor) Inactive 02/12/2016 [facility] meropenem 500 MG Injection [Merrem] 500 mg, IV, Q6H Active 02/12/2016 [facility] Glipizide 5 MG Oral Tablet 2.5 mg = 0.5 tab, PO, Daily, # 15 tab, 0 Refill(s) Active 02/12/2016 [facility] tamsulosin 0.4 mg oral capsule 0.4 mg = 1 cap, PO, After Dinner, 0 Refill(s) Active 02/12/2016 [facility] metoprolol tartrate 50 mg oral tablet 50 mg = 1 tab, PO, BID, 0 Refill(s) Active 02/12/2016 [facility] docusate sodium 100 mg oral capsule 100 mg = 1 cap, PO, BID, PRN Constipation, 0 Refill(s) Active 02/12/2016 [facility] Acetaminophen 325 MG / Hydrocodone Shmuel trate 5 MG Oral Tablet [Cohagen 5/325] 1 tab, PO, Q6H, PRN Pain Score 1-3, 0 Re fill(s) Active 02/12/2016 [facility] Spironolactone Notes: (Same As : Aldactone) No Longer Active 02/10/2016 [facility] Gentamicin level scheduled Gen tamicin level scheduled, Gent level due, Drug form: MISC, Route: MISC, ONCE, 02/09/16 19:30:00 CDT, Stop date: 02/09/16 19:30:00 CDT No Longer Active 02/10/2016 [facility] Tums Notes: (Same As: Tums) Ca lcium Carbonate 500 mg = 200 mg elemental calcium Dose = mg calcium carbonate ( mg elemental calcium) No Longer Active 02/09/2016 [facility] Famotidine 40 MG Oral Tablet [Pepcid] Notes: (Same as: Pepcid) No Longer Active 02/09/2016 [facility] Flomax Notes: (Same As: Flomax ) "Do Not Crush" No Longer Active 02/08/2016 [facility] Saline Flush 0.9% Notes: (Same as: BD Posiflush) No Longer Active 02/08/2016 [facility] Lidocaine Hydrochloride 10 MG/ML Injectable Solution Notes: Preservative free. (Same as: Xylocaine MPF) No Longer Active 02/08/2016 [facility] Saline Flush 0.9% Notes: (Same as: BD Posiflush) No Longer Active 02/08/2016 [facility] Gentamicin level scheduled Gen tamicin level scheduled, Gent level due, Drug form: MISC, Route: MISC, ONCE, 02/07/16 19:30:00 CDT, Stop date: 02/07/16 19:30:00 CDT Inactive 02/08/2016 [facility] potassium phosphate + Sodium Chloride 0.9% IV 250 mL Notes: (Same as: K Phosphate.) 1 mMol phoshate has 1.47 mEq potassium Infuse over 4 hours Inactive 02/07/2016 [facility] metoprolol tartrate Notes: ([facility] as: Lopressor) No Longer Active 02/06/2016 [facility] Merrem 50, Extended infusion, infuse over 3 hours, Start date: 02/05/16 18:00:00 CDT, Duration: 30 day, Stop date: 03/06/16 12:00:00 CDT Inactive 02/05/2016 [facility] Gentamicin trough due Gentamic in trough due, -, Drug form: MISC, Route: MISC, ONCE, 02/05/16 15:30:00 CDT, Stop date: 02/05/16 15:30:00 CDT Inactive 02/05/2016 [facility] potassium phosphate + Sodium Chloride 0.9% IV 250 mL Notes: (Same as: K Phosphate.) 1 mMol phoshate has 1.47 mEq potassium Infuse over 4 hours Inactive 02/05/2016 [facility] meropenem + Sodium Chloride 0.9% IV 100 mL Notes: Same as Merrem MEDICATION WASTE Product Size: 500 mg Product Wasted: ___ mg No Longer Active 02/05/2016 [facility] Zofran Notes: (Same as: Zofran ) MEDICATION WASTE Product Size: 4 mg Product Wasted: ___ mg No Longer Active 02/05/2016 [facility] metoprolol tartrate Notes: (Sa me as: Lopressor) No Longer Active 02/05/2016 [facility] Calcium Gluconate Notes: WASTE : F/P - Sink; E - Municipal Trash Bin No Longer Active 02/04/2016 [facility] potassium chloride Notes: Infu se at a rate of 10 mEq/hr. (Same as: KCL) No Longer Active 02/04/2016 [facility] potassium phosphate + Sodium Chloride 0.9% IV 250 mL Notes: (Same as: K Phosphate.) 1 mMol phoshate has 1.47 mEq potassium Infuse over 4 hours No Longer Active 02/04/2016 [facility] sodium phosphate + Sodium Chloride 0.9% IV 250 mL 30 mmol, 10 mL, Route: IVPB, PRN, Dosing Weight 95, kg, PRN Abnormal Lab Result, For NON-ICU Patients Only., Start date: 02/04/16 18:06:00 CDT, Duration: 30 day, Stop date: 03/05/16 18:05:00 CDT No Longer Active 02/04/2016 [facility] potassium phosphate-sodium phosphate 250 mg-278 mg-164 mg oral powder Notes: (Same as: Neutra-Phos) Each 1.25 gm pkt has 250mg phosphorous. Mix w/2.5oz water and stir. No Longer Active 02/04/2016 [facility] Magnesium Oxide Notes: (Same a s: Mag-Ox 400) Magnesium oxide [id number] elemental magnesium Dose=____mg magnesium oxide (___mg elemental magnesium) No Longer Active 02/04/2016 [facility] Magnesium Sulfate Notes: WASTE : F/P - Sink; E - Municipal Trash Bin No Longer Active 02/04/2016 [facility] gentamicin + Sodium Chloride 0.9% IV 100 mL Notes: TIME CRITICAL MEDICATION (Same as Garamycin) No Longer Active 02/04/2016 [facility] Gentamicin Sulfate (FPC) 1 ea, Route: MISC, Dosing Weight 95, kg, ONCALL, Start date: 02/04/16 15:00:00 CDT, Duration: 1 doses or times, Pharmacy to dose Inactive 02/04/2016 [facility] Labetalol Notes: (Same as: Natali Torresdamarivel) Push over 2 minutes Give bolus over 2-3 minutes. No Longer Active 02/04/2016 [facility] Doxazosin Notes: (Same as: Car dura) No Longer Active 02/04/2016 [facility] potassium phosphate + Sodium Chloride 0.9% IV 250 mL Notes: (Same as: K Phosphate.) 1 mMol phoshate has 1.47 mEq potassium Infuse over 4 hours Inactive 02/04/2016 [facility] sodium phosphate 15 mmol, Rout e: IVPB, PRN, Dosing Weight 95, kg, PRN Abnormal Lab Result, Start date: 02/04/16 7:36:00 CDT, Duration: 30 day, Stop date: 03/05/16 7:35:00 CDT Inactive 02/04/2016 [facility] sodium phosphate + Sodium Chloride 0.9% IV 250 mL 15 mmol, 5 mL, Route: IVPB, PRN, Dosing Weight 95, kg, PRN Abnormal Lab Result, Start date: 02/04/16 7:20:00 CDT, Duration: 30 day, Stop date: 03/05/16 7:19:00 CDT No Longer Active 02/04/2016 [facility] potassium phosphate + Sodium Chloride 0.9% IV 250 mL Notes: (Same as: K Phosphate.) 1 mMol phoshate has 1.47 mEq potassium Infuse over 4 hours Inactive 02/03/2016 [facility] tramadol hydrochloride 50 MG Oral Tablet 50 mg = 1 tab, PO, Q8H, PRN Pain Score 6-10, 0 Refill(s) Active 02/03/2016 [facility] Metformin 1,000 mg, PO, TID, 0 Refill(s) No Longer Active 02/03/2016 [facility] Amlodipine 10 mg, PO, Daily, 0 Refill(s) Active 02/03/2016 [facility] acyclovir 200 mg oral capsule 200 mg = 1 cap, PO, Daily, PRN infection, 0 Refill(s) Active 02/03/2016 [facility] benzonatate 100 mg oral capsule 100 mg = 1 cap, PO, TID, 0 Refill(s) Active 02/03/2016 [facility] nitrofurantoin 100 mg, PO, BID , # 14 cap, 0 Refill(s) No Longer Active 02/03/2016 [facility] meclizine 25 mg oral tablet 25 mg = 1 tab, PO, TID, PRN Nausea, 0 Refill(s) Active 02/03/2016 [facility] doxazosin 1 mg oral tablet 1 m g = 1 tab, PO, Daily, every evening, 0 Refill(s) Active 02/03/2016 [facility] Hydrochlorothiazide 25 mg, PO, Daily, 0 Refill(s) No Longer Active 02/03/2016 [facility] lisinopril 40 mg oral tablet 4 0 mg = 1 tab, PO, Daily, 0 Refill(s) No Longer Active 02/03/2016 [facility] testosterone 200 mg/mL intramuscular solution 200 mg = 1 ml, IM, q2wk, 0 Refill(s) No Longer Active 02/03/2016 [facility] Ibuprofen 200 mg, 0 Refill(s) No Longer Active 02/03/2016 [facility] heparin Notes: porcine heparin No Longer Active 02/03/2016 [facility] Zosyn Notes: (Same as: Zosyn) Dosing based on Piperacillin component MEDICATION WASTE Product Size: 3375 mg Product Wasted: 0 mg No Longer Activ e 02/02/2016 [facility] Acetaminophen 325 MG / Hydrocodone Shmuel trate 5 MG Oral Tablet [Cohagen 5/325] Notes: (Same as: Cohagen 325/5) Do not ex ceed 4gm/day of acetaminophen. No Longer Activ e 02/02/2016 [facility] Amlodipine Notes: (Same as: No rvasc) No Longer Active 02/02/2016 [facility] Saline Flush 0.9% Notes: (Same as: BD Posiflush) No Longer Active 02/02/2016 [facility] Sodium Chloride 0.0769 MEQ/ML Injectable Solution 1,000 mL, Rate: 75 ml/hr, Infuse over: 13.3 hr, Route: IV, Dosing Weight 95 kg, Total Volume: 1,000, Start date: 02/02/16 16:28:00 CDT, Stop date: 03/03/16 16:27:00 CDT No Longer Active 02/02/2016 [facility] Acetaminophen Notes: Do not ex ceed 4 gm/day. (Same as: Tylenol) No Longer Active 02/02/2016 [facility] Docusate Notes: (Same as: Cola ce) (Do Not Crush) No Longer Active 02/02/2016 [facility] Ondansetron Notes: (Same as: Dannie chong) MEDICATION WASTE Product Size: 4 mg Product Wasted: 0 mg No Longer Active 02/02/2016 [facility] Sodium Chloride 0.154 MEQ/ML Injectable Solution 1,000 mL, 1,000 ml/hr, Infuse Over: 1 hr, Route: IV, 1,000, Drug form: INJ, ONCE, Priority: STAT, Dosing Weight 95 kg, Start date: 02/02/16 14:06:00 CDT, Duration: 1 doses or times, Stop date: 02/02/16 14:06:00 CDT Inactive 02/02/2016 [facility] Tylenol Notes: Do not exceed 4 gm/day. (Same as: Tylenol) Inactive 02/02/2016 [facility] Sodium Chloride 0.154 MEQ/ML Injectable Solution 1,000 mL, 1,000 ml/hr, Infuse Over: 1 hr, Route: IV, 1,000, Drug form: INJ, ONCE, Priority: STAT, Dosing Weight 95 kg, Start date: 02/02/16 13:00:00 CDT, Duration: 1 doses or times, Stop date: 02/02/16 13:00:00 CDT Inactive 02/02/2016 [facility] Rocephin Notes: (Same As: Michael mendoza). Use with 100 mL NS and infuse over 30 min MEDICATION WASTE Product Size: 1000 mg Product Wasted: 0 mg Inactive 02/02/2016 [facility] Allergies, Adverse Reactions, Alerts Substance Category Reaction Severity Reaction type Status Date Reported Comments Source ciprofloxacin Assertion Drug allergy Active [facility] [place] Immunizations No Data Provided for This Section Results Order Name Results Value Reference Range Date Interpretation Comments Source ELECTROLYTES AGAP 12.5 10.0 - 20.0 11/22/2016 [facility] ELECTROLYTES eGFR 71 11/22/2016 Result Comment: The [...] should be multiplied by the estimated BMI. [facility] ELECTROLYTES BUN 16 7 - 22 11/22/2016 [facility] ELECTROLYTES Creatinine Lvl 0.9 9 0.50 - 1.40 11/22/2016 [facility] ELECTROLYTES Glucose Lvl 120 70 - 99 11/22/2016 [facility] ELECTROLYTES Sodium Lvl 133 135 - 145 11/22/2016 [facility] ELECTROLYTES Potassium Lvl 3.5 3.5 - 5.1 11/22/2016 [facility] ELECTROLYTES Chloride Lvl 98 95 - 109 11/22/2016 [facility] ELECTROLYTES CO2 26 24 - 32 11/22/2016 [facility] ELECTROLYTES Calcium Lvl 8.7 8.5 - 10.5 11/22/2016 [facility] Segs-Bands # 3.2 1.5 - 8.1 11/22/2016 [facility] Monocytes # 0.4 0.0 - 0.8 11/22/2016 [facility] Lymphocytes # 1.8 1.0 - 5.5 11/22/2016 [facility] Plt Morph Rajni l (11/22/16 3:45 AM) 11/22/2016 [facility] RBC Morph Rajni l (11/22/16 3:45 AM) 11/22/2016 [facility] Segs 59.2 45.0 - 75.0 11/22/2016 [facility] Lymphocytes 32.0 20.0 - 40.0 11/22/2016 [facility] HEMATOLOGY Eosinophils 0.3 0.0 - 4.0 11/22/2016 [facility] Monocytes 8.1 2.0 - 12.0 11/22/2016 [facility] Basophils 0.4 0.0 - 1.0 11/22/2016 [facility] MCHC 34.4 32.0 - 36.0 11/22/2016 [facility] MCH 28.0 27.0 - 31.0 11/22/2016 [facility] HEMATOLOGY RDW 15.2 11.5 - 14.5 11/22/2016 [facility] HEMATOLOGY Platelet 215 133 - 450 11/22/2016 [facility] HEMATOLOGY MPV 8.4 7.4 - 10.4 11/22/2016 [facility] HEMATOLOGY Hct 35.9 42.0 - 54.0 11/22/2016 [facility] HEMATOLOGY MCV 81.3 80.0 - 94.0 11/22/2016 [facility] Hgb 12.3 14.0 - 18.0 11/22/2016 [facility] HEMATOLOGY RBC 4.41 4.70 - 6.10 11/22/2016 [facility] WBC 5.5 3.7 - 10.4 11/22/2016 [facility] CHEM PANEL eGFR 76 11/21/2016 Result Comment: [...] should be multiplied by the estimated BMI. [facility] CHEM PANEL CO2 27 24 - 32 11/21/2016 [facility] CHEM PANEL Chloride Lvl 98 95 - 109 11/21/2016 [facility] CHEM PANEL AGAP 12.7 10.0 - 20.0 11/21/2016 [facility] CHEM PANEL Calcium Lvl 8.5 8.5 - 10.5 11/21/2016 [facility] CHEM PANEL Glucose Lvl 126 70 - 99 11/21/2016 [facility] CHEM PANEL BUN 13 7 - 22 11/21/2016 [facility] CHEM PANEL Creatinine Lvl 0.94 0.50 - 1.40 11/21/2016 [facility] CHEM PANEL Potassium Lvl 3.7 3.5 - 5.1 11/21/2016 [facility] CHEM PANEL Sodium Lvl 134 135 - 145 11/21/2016 [facility] Hgb 12.8 14.0 - 18.0 11/21/2016 [facility] Hct 37.4 42.0 - 54.0 11/21/2016 [facility] HEMATOLOGY MCV 82.2 80.0 - 94.0 11/21/2016 [facility] MCH 28.1 27.0 - 31.0 11/21/2016 [facility] RBC 4.55 4.70 - 6.10 11/21/2016 [facility] WBC 3.5 3.7 - 10.4 11/21/2016 [facility] Platelet 205 133 - 450 11/21/2016 [facility] RDW 15.5 11.5 - 14.5 11/21/2016 [facility] MPV 8.7 7.4 - 10.4 11/21/2016 [facility] MCHC 34.1 32.0 - 36.0 11/21/2016 [facility] Segs-Bands # 2.0 1.5 - 8.1 11/21/2016 [facility] Monocytes 9.8 2.0 - 12.0 11/21/2016 [facility] Eosinophils 0.2 0.0 - 4.0 11/21/2016 [facility] Basophils 0.9 0.0 - 1.0 11/21/2016 [facility] Lymphocytes 32.7 20.0 - 40.0 11/21/2016 [facility] Segs 56.4 45.0 - 75.0 11/21/2016 [facility] Monocytes # 0.3 0.0 - 0.8 11/21/2016 [facility] Lymphocytes # 1.1 1.0 - 5.5 11/21/2016 [facility] ELECTROLYTES CO2 28 24 - 32 11/20/2016 [facility] ELECTROLYTES Calcium Lvl 8.9 8.5 - 10.5 11/20/2016 [facility] ELECTROLYTES AGAP 12.8 10.0 - 20.0 11/20/2016 [facility] ELECTROLYTES eGFR 56 11/20/2016 Result Comment: The [...] should be multiplied by the estimated BMI. [facility] ELECTROLYTES Chloride Lvl 96 95 - 109 11/20/2016 [facility] ELECTROLYTES Sodium Lvl 133 135 - 145 11/20/2016 [facility] ELECTROLYTES Potassium Lvl 3.8 3.5 - 5.1 11/20/2016 [facility] ELECTROLYTES Glucose Lvl 198 70 - 99 11/20/2016 [facility] ELECTROLYTES BUN 14 7 - 22 11/20/2016 [facility] ELECTROLYTES Creatinine Lvl 1.2 0 0.50 - 1.40 11/20/2016 [facility] CHEM PANEL Phosphorus 2.4 2.5 - 4.5 11/20/2016 [facility] CHEM PANEL Phosphorus 2.6 2.5 - 4.5 11/20/2016 [facility] CHEM PANEL Magnesium Lvl 2.1 1.8 - 2.4 11/20/2016 [facility] CARDIAC ENZYMES Total CK 418 12 - 191 11/19/2016 [facility] CARDIAC ENZYMES Troponin-I <0.02 0.00 - 0.40 11/19/2016 [facility] CARDIAC ENZYMES CK MB Index 0.8 0.0 - 2.5 11/19/2016 [facility] CARDIAC ENZYMES CK MB 3.3 0.5 - 3.6 11/19/2016 [facility] CHEM PANEL Phosphorus 2.9 2.5 - 4.5 11/19/2016 [facility] CHEM PANEL Magnesium Lvl 2.2 1.8 - 2.4 11/19/2016 [facility] URINE AND STOOL UA Color Ltyellow 11/19/2016 [facility] URINE AND STOOL UA Urobilinogen <=1.0 mg/dL 0.1 - 1.0 11/19/2016 [facility] URINE AND STOOL UA Sq Epi None Seen 11/19/2016 [facility] URINE AND STOOL UA Nitrite Negative (11/19/16 1:27 PM) Negative 11/19/2016 [facility] URINE AND STOOL UA Leuk Est Negative (11/19/16 1:27 PM) Negative 11/19/2016 [facility] URINE AND STOOL UA Ketones Negative mg/dL Negative mg/dL 11/19/2016 [facility] URINE AND STOOL UA Bili Negative *NA* (11/19/16 1:27 PM) Negative 11/19/2016 [facility] URINE AND STOOL UA Blood Negative (11/19/16 1:27 PM) Negative 11/19/2016 [facility] URINE AND STOOL UA pH 6.0 5.0 - 8.0 11/19/2016 [facility] URINE AND STOOL UA Protein Negative mg/dL Negative mg/dL 11/19/2016 [facility] URINE AND STOOL UA Glucose Negative mg/dL Negative mg/dL 11/19/2016 [facility] URINE AND STOOL UA Turbidity Clear (11/19/16 1:27 PM) Clear 11/19/2016 [facility] URINE AND STOOL UA Spec Grav 1.011 <=1.030 11/19/2016 [facility] URINE AND STOOL UA WBC 1 0 - 5 11/19/2016 [facility] URINE AND STOOL UA RBC <1 0 - 2 11/19/2016 [facility] Monocytes # 0.3 0.0 - 0.8 11/19/2016 [facility] Lymphocytes # 1.1 1.0 - 5.5 11/19/2016 [facility] Segs-Bands # 3.4 1.5 - 8.1 11/19/2016 [facility] Eosinophils 0.1 0.0 - 4.0 11/19/2016 [facility] Monocytes 5.3 2.0 - 12.0 11/19/2016 [facility] Lymphocytes 23.7 20.0 - 40.0 11/19/2016 [facility] Basophils 0.8 0.0 - 1.0 11/19/2016 [facility] Segs 70.1 45.0 - 75.0 11/19/2016 [facility] Plt Morph Rajni l (11/19/16 1:20 PM) 11/19/2016 [facility] RBC Morph Rajni l (11/19/16 1:20 PM) 11/19/2016 [facility] MCV 81.1 80.0 - 94.0 11/19/2016 [facility] Hgb 13.1 14.0 - 18.0 11/19/2016 [facility] RDW 15.1 11.5 - 14.5 11/19/2016 [facility] MCHC 34.6 32.0 - 36.0 11/19/2016 [facility] HEMATOLOGY MCH 28.1 27.0 - 31.0 11/19/2016 [facility] HEMATOLOGY Platelet 201 133 - 450 11/19/2016 [facility] HEMATOLOGY Hct 37.8 42.0 - 54.0 11/19/2016 [facility] HEMATOLOGY MPV 8.8 7.4 - 10.4 11/19/2016 [facility] HEMATOLOGY WBC 4.8 3.7 - 10.4 11/19/2016 [facility] HEMATOLOGY RBC 4.66 4.70 - 6.10 11/19/2016 [facility] CARDIAC ENZYMES Total CK 405 12 - 191 11/19/2016 [facility] CARDIAC ENZYMES CK MB 4.0 0.5 - 3.6 11/19/2016 [facility] CARDIAC ENZYMES CK MB Index 1.0 0.0 - 2.5 11/19/2016 [facility] CARDIAC ENZYMES Troponin-I <0.02 0.00 - 0.40 11/19/2016 [facility] CARDIAC ENZYMES Total CK 402 12 - 191 11/19/2016 [facility] CHEM PANEL Bili Total 0.7 0.2 - 1.3 11/19/2016 [facility] CHEM PANEL Globulin 3.5 2.7 - 4.2 11/19/2016 [facility] CHEM PANEL Albumin Lvl 3.7 3.5 - 5.0 11/19/2016 [facility] CHEM PANEL A/G Ratio 1.1 0.7 - 1.6 11/19/2016 [facility] CHEM PANEL Total Protein 7.2 6.4 - 8.4 11/19/2016 [facility] CHEM PANEL AST 33 0 - 37 11/19/2016 [facility] CHEM PANEL Alk Phos 114 39 - 136 11/19/2016 [facility] CHEM PANEL ALT 25 0 - 65 11/19/2016 [facility] CHEM PANEL B/C Ratio 12 6 - 25 11/19/2016 [facility] CHEM PANEL Magnesium Lvl 2.0 1.8 - 2.4 11/19/2016 [facility] HEMATOLOGY PTT 32.0 22.9 - 35.8 11/19/2016 [facility] HEMATOLOGY PT 13.8 12.0 - 14.7 11/19/2016 [facility] HEMATOLOGY INR 1.04 0.85 - 1.17 11/19/2016 [facility] SPECIAL CHEMISTRY Hgb A1C 6.3 <=5.6 % 02/12/2016 [facility] CHEM PANEL eGFR 67 02/12/2016 Result Comment: [...] should be multiplied by the estimated BMI. [facility] CHEM PANEL Chloride Lvl 102 95 - 109 02/12/2016 [facility] CHEM PANEL Calcium Lvl 9.1 8.5 - 10.5 02/12/2016 [facility] CHEM PANEL CO2 26 24 - 32 02/12/2016 [facility] CHEM PANEL BUN 22 7 - 22 02/12/2016 [facility] CHEM PANEL Potassium Lvl 3.8 3.5 - 5.1 02/12/2016 [facility] CHEM PANEL Sodium Lvl 136 135 - 145 02/12/2016 [facility] CHEM PANEL Creatinine Lvl 1.05 0.50 - 1.40 02/12/2016 [facility] CHEM PANEL Glucose Lvl 120 70 - 99 02/12/2016 [facility] CHEM PANEL AGAP 11.8 10.0 - 20.0 02/12/2016 [facility] CHEM PANEL Phosphorus 2.7 2.5 - 4.5 02/12/2016 [facility] CHEM PANEL Magnesium Lvl 2.3 1.8 - 2.4 02/12/2016 [facility] HEMATOLOGY Segs-Bands # 3.9 1.5 - 8.1 02/12/2016 [facility] HEMATOLOGY Basophils 0.5 0.0 - 1.0 02/12/2016 [facility] HEMATOLOGY Eosinophils 0.1 0.0 - 4.0 02/12/2016 [facility] HEMATOLOGY Segs 69.2 45.0 - 75.0 02/12/2016 [facility] HEMATOLOGY Lymphocytes # 1.2 1.0 - 5.5 02/12/2016 [facility] HEMATOLOGY Monocytes # 0.5 0.0 - 0.8 02/12/2016 [facility] HEMATOLOGY Monocytes 9.0 2.0 - 12.0 02/12/2016 [facility] HEMATOLOGY Lymphocytes 21.2 20.0 - 40.0 02/12/2016 [facility] HEMATOLOGY WBC 5.6 3.7 - 10.4 02/12/2016 [facility] HEMATOLOGY MPV 9.7 7.4 - 10.4 02/12/2016 [facility] HEMATOLOGY RDW 16.2 11.5 - 14.5 02/12/2016 [facility] HEMATOLOGY Platelet 178 133 - 450 02/12/2016 [facility] HEMATOLOGY MCH 26.5 27.0 - 31.0 02/12/2016 [facility] HEMATOLOGY MCHC 32.8 32.0 - 36.0 02/12/2016 [facility] HEMATOLOGY MCV 80.7 80.0 - 94.0 02/12/2016 [facility] HEMATOLOGY Hgb 11.9 14.0 - 18.0 02/12/2016 [facility] HEMATOLOGY Hct 36.1 42.0 - 54.0 02/12/2016 [facility] HEMATOLOGY RBC 4.48 4.70 - 6.10 02/12/2016 [facility] CHEM PANEL Phosphorus 2.5 2.5 - 4.5 02/11/2016 [facility] CHEM PANEL Globulin 4.9 2.0 - 4.0 02/11/2016 [facility] CHEM PANEL Albumin Lvl 3.2 3.5 - 5.0 02/11/2016 [facility] CHEM PANEL Total Protein 8.1 6.4 - 8.4 02/11/2016 [facility] CHEM PANEL A/G Ratio 0.7 0.7 - 1.6 02/11/2016 [facility] CHEM PANEL ALT 42 0 - 65 02/11/2016 [facility] CHEM PANEL Alk Phos 106 39 - 136 02/11/2016 [facility] CHEM PANEL AST 49 0 - 37 02/11/2016 [facility] CHEM PANEL Bili Indirect 0.5 0.0 - 1.0 02/11/2016 [facility] CHEM PANEL Bili Total 0.6 0.2 - 1.3 02/11/2016 [facility] CHEM PANEL Bili Direct 0.1 0.0 - 0.3 02/11/2016 [facility] CHEM PANEL Magnesium Lvl 2.4 1.8 - 2.4 02/11/2016 [facility] CHEM PANEL eGFR 60 02/11/2016 Result Comment: [...] should be multiplied by the estimated BMI. [facility] CHEM PANEL Calcium Lvl 9.6 8.5 - 10.5 02/11/2016 [facility] CHEM PANEL CO2 24 24 - 32 02/11/2016 [facility] CHEM PANEL AGAP 11.5 10.0 - 20.0 02/11/2016 [facility] CHEM PANEL Creatinine Lvl 1.14 0.50 - 1.40 02/11/2016 [facility] CHEM PANEL BUN 21 7 - 22 02/11/2016 [facility] CHEM PANEL Glucose Lvl 124 70 - 99 02/11/2016 [facility] CHEM PANEL Potassium Lvl 4.5 3.5 - 5.1 02/11/2016 [facility] CHEM PANEL Chloride Lvl 101 95 - 109 02/11/2016 [facility] CHEM PANEL Sodium Lvl 132 135 - 145 02/11/2016 [facility] Plt Morph Rajni l (02/11/16 10:54 AM) 02/11/2016 [facility] HEMATOLOGY Segs 69.3 45.0 - 75.0 02/11/2016 [facility] HEMATOLOGY RBC Morph Rajni l (02/11/16 10:54 AM) 02/11/2016 [facility] HEMATOLOGY Large Plt Moder ate *ABN* (02/11/16 10:54 AM) None Seen 02/11/2016 [facility] HEMATOLOGY Monocytes # 0.5 0.0 - 0.8 02/11/2016 [facility] Lymphocytes # 1.4 1.0 - 5.5 02/11/2016 [facility] Segs-Bands # 4.4 1.5 - 8.1 02/11/2016 [facility] Eosinophils 0.3 0.0 - 4.0 02/11/2016 [facility] HEMATOLOGY Monocytes 7.1 2.0 - 12.0 02/11/2016 [facility] HEMATOLOGY Lymphocytes 22.8 20.0 - 40.0 02/11/2016 [facility] HEMATOLOGY Basophils 0.5 0.0 - 1.0 02/11/2016 [facility] MCH 27.3 27.0 - 31.0 02/11/2016 [facility] HEMATOLOGY Hct 40.7 42.0 - 54.0 02/11/2016 [facility] HEMATOLOGY Hgb 13.8 14.0 - 18.0 02/11/2016 [facility] HEMATOLOGY MPV 10.1 7.4 - 10.4 02/11/2016 [facility] Platelet 160 133 - 450 02/11/2016 [facility] RDW 16.5 11.5 - 14.5 02/11/2016 [facility] MCHC 33.8 32.0 - 36.0 02/11/2016 [facility] MCV 80.6 80.0 - 94.0 02/11/2016 [facility] WBC 6.4 3.7 - 10.4 02/11/2016 [facility] HEMATOLOGY RBC 5.05 4.70 - 6.10 02/11/2016 [facility] IMMUNOLOGY C-REACTIVE PROTEIN 17.0 <=2.9 mg/L 02/11/2016 [facility] CHEM PANEL Magnesium Lvl 2.3 1.8 - 2.4 02/09/2016 [facility] HEMATOLOGY INR 0.96 0.85 - 1.17 02/08/2016 [facility] HEMATOLOGY PT 13.1 12.0 - 14.7 02/08/2016 [facility] ENDOCRINOLOGY Testosterone Tot 13 6 250 - 1100 02/08/2016 Result Comment: Males: Men with clinical ly significant hypogonadal
symptoms and testosterone values repeatedly in the
range of the 200-300 ng/dL or less, may benefit
from testosterone treatment after adequate risk
and benefits counseling. [facility] ENDOCRINOLOGY Testosterone Free 16 .1 30.0 - 135.0 02/08/2016 Result Comment: Test Performed at:
[facility] [place]
[facility], [id number] [address] [facility]
[place] [address] B Miquel KRISHNA, FCAP [facility] ELECTROLYTES AGAP 9.7 10.0 - 20.0 02/08/2016 [facility] ELECTROLYTES eGFR 81 02/08/2016 Result Comment: The [...] should be multiplied by the estimated BMI. [facility] ELECTROLYTES Sodium Lvl 137 135 - 145 02/08/2016 [facility] ELECTROLYTES Chloride Lvl 103 95 - 109 02/08/2016 [facility] ELECTROLYTES Potassium Lvl 3.7 3.5 - 5.1 02/08/2016 [facility] ELECTROLYTES CO2 28 24 - 32 02/08/2016 [facility] ELECTROLYTES Calcium Lvl 9.1 8.5 - 10.5 02/08/2016 [facility] ELECTROLYTES Creatinine Lvl 0.8 8 0.50 - 1.40 02/08/2016 [facility] ELECTROLYTES Glucose Lvl 126 70 - 99 02/08/2016 [facility] ELECTROLYTES BUN 13 7 - 22 02/08/2016 [facility] HEMATOLOGY Segs 66.5 45.0 - 75.0 02/08/2016 [facility] RBC Morph Rajni l (02/08/16 8:35 AM) 02/08/2016 [facility] Large Plt Moder ate *ABN* (02/08/16 8:35 AM) None Seen 02/08/2016 [facility] Monocytes # 0.5 0.0 - 0.8 02/08/2016 [facility] Monocytes 12.5 2.0 - 12.0 02/08/2016 [facility] Lymphocytes 20.4 20.0 - 40.0 02/08/2016 [facility] Lymphocytes # 0.8 1.0 - 5.5 02/08/2016 [facility] Segs-Bands # 2.6 1.5 - 8.1 02/08/2016 [...] Procalcitonin Lvl 0.83 0.00 - 0.10 02/05/2016 [facility] CHEM PANEL B/C Ratio 11 6 - 25 02/03/2016 [facility] CHEM PANEL A/G Ratio 0.7 0.7 - 1.6 02/03/2016 [facility] CHEM PANEL Globulin 4.0 2.0 - 4.0 02/03/2016 [facility] CHEM PANEL AST 28 0 - 37 02/03/2016 [facility] CHEM PANEL Bili Total 1.1 0.2 - 1.3 02/03/2016 [facility] CHEM PANEL Alk Phos 112 39 - 136 02/03/2016 [facility] CHEM PANEL ALT 15 0 - 65 02/03/2016 [facility] CHEM PANEL Albumin Lvl 2.9 3.5 - 5.0 02/03/2016 [facility] CHEM PANEL Total Protein 6.9 6.4 - 8.4 02/03/2016 [facility] HEMATOLOGY Basophils # 0.2 0.0 - 0.2 02/03/2016 [facility] HEMATOLOGY PTT 36.9 22.9 - 35.8 02/03/2016 [facility] SPECIAL CHEMISTRY Free PSA/PSA 43.6 >=25.0 % 02/03/2016 [facility] SPECIAL CHEMISTRY PSA Free 19.16 02/03/2016 [facility] SPECIAL CHEMISTRY PSA 43.9 0.0 - 4.0 02/03/2016 [facility] CHEM PANEL Lactic Acid Lvl 2.0 0.5 - 2.2 02/02/2016 [facility] CHEM PANEL Procalcitonin Lvl 0.40 0.00 - 0.10 02/02/2016 [facility] URINE AND STOOL UA Leuk Est Trace *ABN* (02/02/16 2:06 PM) Negative 02/02/2016 [facility] URINE AND STOOL UA pH 6.5 5.0 - 8.0 02/02/2016 [facility] URINE AND STOOL UA Protein 100 mg/dL Negative mg/dL 02/02/2016 [facility] URINE AND STOOL UA Bili Small *ABN* (02/02/16 2:06 PM) Negative 02/02/2016 [facility] URINE AND STOOL UA Blood Large *ABN* (02/02/16 2:06 PM) Negative 02/02/2016 [facility] URINE AND STOOL UA Glucose 100 mg/dL Negative mg/dL 02/02/2016 [facility] URINE AND STOOL UA Ketones 15 mg/dL Negative mg/dL 02/02/2016 [facility] URINE AND STOOL UA Urobilinogen 1.0 0.1 - 1.0 02/02/2016 [facility] URINE AND STOOL UA Nitrite Positive *ABN* (02/02/16 2:06 PM) Negative 02/02/2016 [facility] URINE AND STOOL UA Spec Grav 1.020 <=1.030 02/02/2016 [facility] URINE AND STOOL UA Color [place] *ABN* (02/02/16 2:06 PM) Yellow 02/02/2016 [facility] URINE AND STOOL UA Turbidity Cloudy *ABN* (02/02/16 2:06 PM) Clear 02/02/2016 [facility] URINE AND STOOL UA RBC >100 /HPF 0 - 2 02/02/2016 [facility] URINE AND STOOL UA WBC 3-5 /HPF None Seen /HPF 02/02/2016 [facility] URINE AND STOOL Micro? Performed (02/02/16 2:06 PM) 02/02/2016 [facility] URINE AND STOOL UA Sq Epi Rare /LPF Few /LPF 02/02/2016 [facility] URINE AND STOOL UA Bacteria Moderate /HPF None Seen /HPF 02/02/2016 [facility] CHEM PANEL Total Protein 8.3 6.4 - 8.4 02/02/2016 [facility] CHEM PANEL Albumin Lvl 3.8 3.5 - 5.0 02/02/2016 [facility] CHEM PANEL ALT 18 0 - 65 02/02/2016 [facility] CHEM PANEL Alk Phos 113 39 - 136 02/02/2016 [facility] CHEM PANEL Bili Total 1.5 0.2 - 1.3 02/02/2016 [facility] CHEM PANEL AST 25 0 - 37 02/02/2016 [facility] CHEM PANEL B/C Ratio 10 6 - 25 02/02/2016 [facility] CHEM PANEL Globulin 4.5 2.0 - 4.0 02/02/2016 [facility] CHEM PANEL A/G Ratio 0.8 0.7 - 1.6 02/02/2016 [facility] CARDIAC ENZYMES Total CK 532 12 - 191 02/02/2016 [facility] CARDIAC ENZYMES CK MB Index 0.4 0.0 - 2.5 02/02/2016 [facility] CARDIAC ENZYMES CK MB 2.0 0.5 - 3.6 02/02/2016 [facility] CARDIAC ENZYMES Troponin-I <0.02 0.00 - 0.40 02/02/2016 [facility] HEMATOLOGY Basophils # 0.1 0.0 - 0.2 02/02/2016 [facility] Pathology Reports No Data Provided for This [...] Aniket CB, Negro GL, et. al. 12/28/2017 [facility] Retroperitoneal Complete US EX AM: US RETROPERITONEAL [...] Mild cortical atrophy without any hydronephrosis. 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 SL: [id number] 11/19/2016 [facility] Carotid artery Doppler bilat US Exam: Bilateral [...] distal tip overlying the right atrium. 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 SL: [id number] 02/06/2016 [facility] Renal Stone CT Clinical Indica tion: Abdominal [...] correlation for prostatitis may be helpful. SL: [id number] 02/02/2016 [facility] Consultation Notes No Data Provided for This Section Discharge Summaries No Data Provided for This Section History and Physicals No Data Provided for This Section Vital Signs Vital Sign Value Date Comments Source Respitory Rate 16 11/22/2016 [facility] Heart Rate 87 11/22/2016 [facility] Systolic (mm Hg) 161 11/22/2016 [facility] Diastolic (mm Hg) 95 11/22/2016 [facility] Temperature Oral (F) 98.7 F 11/22/2016 [facility] Systolic (mm Hg) 149 11/22/2016 [facility] Diastolic (mm Hg) 75 11/22/2016 [facility] Heart Rate 92 11/22/2016 [facility] Respitory Rate 17 11/22/2016 [facility] Temperature Oral (F) 98.8 F 11/22/2016 [facility] Temperature Oral (F) 98.3 F 11/22/2016 [facility] Respitory Rate 18 11/22/2016 [facility] Systolic (mm Hg) 168 11/22/2016 [facility] Diastolic (mm Hg) 97 11/22/2016 [facility] Heart Rate 90 11/22/2016 [facility] Weight 217 11/19/2016 [facility] BMI Calculated 77.22 11/19/2016 [facility] Height 167.64 cm 11/19/2016 [facility] Respitory Rate 18 02/12/2016 [facility] Temperature Oral (F) 98.3 F 02/12/2016 [facility] Heart Rate 73 02/12/2016 [facility] Systolic (mm Hg) 138 02/12/2016 [facility] Diastolic (mm Hg) 83 02/12/2016 [facility] Heart Rate 72 02/12/2016 [facility] Respitory Rate 18 02/12/2016 [facility] Temperature Oral (F) 97.8 F 02/12/2016 [facility] Systolic (mm Hg) 147 02/12/2016 [facility] Diastolic (mm Hg) 85 02/12/2016 [facility] Systolic (mm Hg) 119 02/12/2016 [facility] Diastolic (mm Hg) 73 02/12/2016 [facility] Temperature Oral (F) 98.4 F 02/12/2016 [facility] Heart Rate 83 02/12/2016 [facility] Respitory Rate 18 02/12/2016 [facility] Weight 95 0 02/02/2016 [facility] BMI Calculated 32.8 02/02/2016 [facility] Height 170.18 cm 02/02/2016 [facility] Encounters Location Location Details Encounter Type Encounter Number Reason For Visit Attending Provider ADM Date DC Date Status Source [facility] Inpatient [id number] Lulú Floresoscar 02/02/2016 02/12/2016 [facility] [place] [facility] [id number] Dillan Frankel Jr 06/17/2016 06/18/2016 [facility] [place] [facility] Inpatient [id number] [place] 11/19/2016 11/22/2016 [facility] [place] [facility] [id number] Eladio Saini 11/29/2017 11/30/2017 [facility] [place] [facility] [place] [facility] [id number] Eladio Saini 12/26/2017 12/27/2017 [facility] [place] [facility] [place] [facility] [id number] Eladio Saini 12/28/2017 12/29/2017 [facility] [place] [facility] [place] [facility] [id number] Eladio Saini 01/09/2018 01/10/2018 [facility] [place] [facility] [place] [facility] [id number] 05 Eladio Saini 12/07/2018 12/08/2018 [facility] [place] [facility] [place] [facility] [id number] 06 Eladio Saini 12/21/2018 12/22/2018 [facility] [place] Procedures Procedure Code Date Perfomer Comments Source Carpal tunnel release [id number] [facility], [facility] [place] [place], [facility] [place] Cholecystectomy [id number] [facility], [facility] [place] [place] [place] Rotator cuff repair [id number] [facility] [place] [place] Assessment and Plan Assessment and Plan Date [...] in place. No hematuria. Skin: no rash. [employer]: awake and alert. no focal signs. Labs/imaging: [...] Prophylaxis hsq Disposition admit as inpatient 02/12/2016 [facility] Plan of Care No Data Provided for [...] No; Reg Smoking Cessation Counseling No 11/19/2016 [facility] Social History TypeResponse Smoking Status Never smoker; Exposure to Tobacco Smoke None; Cigarette Smoking Last 365 Days No; Reg Smoking Cessation Counseling No 02/02/2016 [facility] Family History No Data Provided for This Section Advance Directives No Data Provided for This Section Functional Status No Data Provided for This Section
--- OUTSIDE RECORDS SUMMARY | 2020-04-17 07:21 | XMS REPORT | Continuity of Care Document ---
Author Author [facility] t Organization [facility] Address [address] [place] [address] Phone Unavailable Care Team Providers Care Stone Finisher Name Role Phone STEVO , DO Brittany JOHNSON PCP JEREMIAH FLORES Attphys Unavailable Yan PEREZ Attphys Unavailable Sonal ORDONEZ Attphys Unavailable GENAROAnushka MERCHANT Attphys Unavailable AVIS FLORES Attphys Unavailable Demar Saini Attphys Anali ANGELA Attphys Unavailable [place] Attphys Silvestre Frankel Jr Attphys Lulú Logan Attphys MEGAN KAUR Admphys Unavailable JUNIOR GUZMAN Admphys Unavailable Alfred GARCIA Admphys Unavailable AVIS FLORES Admphys Unavailable [place] Admphys Lulú Logan Admphys Payers Payer Name Policy Type Policy Number Effective Date Expiration Date S [id number] [facility] 2019 00:00:00 Sam Cordova Other Medicare Replacement [id number] [facility] Lizzy Sheehan [id number] 2018 00:00:00 [facility] Anali [facility] Problems Condition Name Condition Details Condition Category Status Onset Date Resolution Date Last Treatment Date Treating Clinician Comments Source Bilateral impacted cerumen Bilateral impacted cerumen Disease Active 2017-12-30 00:00:00 Sam chopra Sensorineural hearing loss (SNHL) of both ears Sensori neural hearing loss (SNHL) of both ears Disease Active 2017-12-30 00:00:00 Sam Cordova HTN/DM HTN/ DM Active 11/18/2016 [facility] Diagnosis Active 2016-11-18 11:30:00 2016-11-22 09:32:00 Jimenez Palencia HYPONATREMIA, HYPOKALEMIA HYPO NATREMIA, HYPOKALEMIA Active 11/18/2016 [facility] Diagnosis Active 2016-11-18 11:30:00 2016-11-29 21:59:00 Jimenez Palencia UNABLE TO VOID UNAB LE TO VOID Active 02/02/2016 [facility] Diagnosis Active 2016-02-02 00:00:00 2016-09-22 11:49:00 Jimenez Palencia Congestive heart failure Congestive heart failure (CHF) Problem Active [facility] Fever of unknown origin Fever of unknown origin Problem Active [facility] Leukopenia Leukopenia Problem Active [facility] Acute on chronic congestive heart failure Problem Active [facility] Dizziness and giddiness Dizz iness and giddiness 01/18/2018 [facility] [place] Problem 2018-01-18 19:06:10 Jimenez Palencia Cerebral ischemia Cere bral ischemia 01/18/2018 [facility] [place] Problem 2018-01-18 19:06:10 Jimenez Palencia Other specified disorders of brain Other specified disorders of brain 01/18/2018 [facility] [place] Problem 2018-01-18 19:06:10 Jimenez Palencia Pain in left elbow Pain in left elbow 03/07/2018 [facility] [place] Problem 2018-03-07 16:23:57 Jimenez Palencia Secondary hypertension, unspecified Secondary hypertension, unspecified 11/25/2016 [place] Problem 2016-11-25 01:52:44 [facility] Diabetes mellitus (disorder) D iabetes mellitus (disorder) Resolved Problem 12/24/2018 [facility], [facility] [place],[facility] [place] Problem Resolved 2018-12-24 00:43:09 [facility] Hypertensive disorder, systemic arterial (disorder) Hypertensive disorder, systemic arterial (disorder) Resolved Problem 12/24/2018 [facility], [facility] [place],[facility] Problem Resolved 2018-12-24 00:43:09 Memor dianna Palencia Arthritis (disorder) Arth ritis (disorder) Resolved Problem 12/24/2018 [facility] [place],[facility] Problem Resolved 2018-12-24 00:43:09 [facility] Vertigo (finding) Vert igo (finding) Resolved Problem 12/24/2018 [facility] [place],[facility] Problem Resolved 2018-12-24 00:43:09 [facility] SEPSIS DUE TO UNSPECIFIED STAPHYLOCOCCUS SEPSIS DUE TO UNSPECIFIED STAPHYLOCOCCUS Active [facility] Active 2016-09-22 11:49:00 [facility] SECONDARY HYPERTENSION, UNSPECIFIED SECONDARY HYPERTENSION, UNSPECIFIED Active [facility] Active 2016-11-22 09:32:00 [facility] HYPO-OSMOLALITY AND HYPONATREMIA HYPO-OSMOLALITY AND HYPONATREMIA Active [facility] Active 2016-11-29 21 :59:00 [facility] HYPOKALEMIA HYPO KALEMIA Active [facility] Active 2016-11-29 21:59:00 Rowdy Palencia Pain in right knee Pain in right knee 12/06/2017 03/07/2018 [facility] [place] Problem 2017-12-06 04:10:16 2018-03-07 16:2 3:57 2018-03-07 16:23:57 [facility] Allergies, Adverse Reactions, Alerts Allergy Name Allergy Type Status Severity Reaction(s) Onset Date Inacti ve Date Treating Clinician Comments Source ciprofloxacin DA Active U 2020-04-03 00:00:00 [facility] No Known Allergies DA Active U 2019-11-08 00:00:00 [facility] Ciprofloxacin Propensity to adverse reactions to drug Active Other (See Comments) 2017-12-30 00:00:00 Ajay Cordova ciprofloxacin ciprofloxacin Active [facility] Family History Family Member Diagnosis Comments Start [...] Date Stop Date Source Social History [facility] Medications Ordered Medication Name Filled Medication Name [...] (PROTONIX) 40 MG EC tablet 2017-10-27 00:00:00 Naren s Sam Cordova finasteride (PROSCAR) 5 mg [...] PO, BID, # 60 tab, 0 Refill(s) Jimenez Palencia carvedilol 12.5 mg oral tablet 2016-11-22 [...] Weight 217, kg, Start date: 11/19/16 17:00:00 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, Duration: 30 day, Stop date: 12/19/16 13:00:00 CDT Nehemias Palencia Acetaminophen 325 MG / Hydrocodone Bitartrate 5 MG Oral Tabl et 2016-11-19 20:40:00 No Notes: (Sa me as: [place] 325/5) Do not exceed 4gm/day of acetaminophen. [facility] Talha Acetaminophen 300 MG / Codeine Phosphate 30 MG Oral Tablet [Tylenol with Codeine #3] 2016-11-19 20:40:00 No Notes: Do not exceed 4gm/day of acetaminophen. (Same as: Tylenol with Codeine # 3) [facility] benzonatate 2016-11-19 19:34:00 No Notes: (Same As: Racquel Bui) "Do Not Crush" Jimenez Palencia Hydralazine 2016-11-19 19:33:00 No Notes: (Same as: Apresoline) Push over 5 minutes [facility] Insulin, Aspart, Human 2016-11-19 19:33:00 No Notes: Roll in palms of hands gently; Do not shake vigorously. (Same as: NovoLOG) "single patient use only" WASTE: F/P - Black; E - Municipal Trash Bin Stable for 28 days at room temperature. Expires in days from Date [facility] Dextrose 50% Syringe 2016-11-19 19:33:00 No 12.5 gm, 25 mL, Route: IVP, Drug Form: INJ, Dosing Weight 217, kg, PRN, PRN Blood Glucose Results, Start date: 11/19/16 13:33:00 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, Duration: 30 day, Stop date: 12/19/16 14:32:00 CDT [facility] Glucagon 2016-11-19 19:33:00 No 1 mg, Route: IM, Drug form: PDR/INJ, PRN, Dosing Weight 217, kg, PRN Blood Glucose Results, Start date: 11/19/16 13:33:00 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, Duration: 30 day, Stop date: 12/19/16 14:32:00 CDT Jimenez Talha Fluticasone propionate 0.05 MG/ACTUAT Metered Dose Nasal Spr ay [Flonase] 2016-11-19 19:23:00 No Notes: (Same as: F lonase) Jimenez Palencia Docusate Sodium 100 MG Oral Capsule 2016-11-19 19:18:00 No Notes: (Same as: Colace) (Do Not Crush) Chance l Talha Acetaminophen 325 MG / Hydrocodone Bitartrate 5 MG Oral Tabl et 2016-11-19 19:15:00 No Notes: (Sa me as: [place] 325/5) Do not exceed 4gm/day of acetaminophen. Jimenez Palencia Ondansetron 2016-11-19 19:15:00 No Notes: (Same as: Gale) MEDICATION WASTE Product Size: 4 mg Product Wasted: ___ mg [facility] Acetaminophen 2016-11-19 19:15:00 No Notes: Do not exceed 4 gm/day. (Same as: Tylenol) [facility] sodium phosphate + D5W 240 mL 2016-11-19 19:13:00 No 30 mmol, 10 mL, Route: IVPB, PRN, Dosing Weight 217, kg, PRN Abnormal Lab Result, For NON-ICU Patients Only., Start date: 11/19/16 13:13:00 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, Duration: 30 day, Stop date: 12/19/16 14:12:00 CDT [facility] sodium phosphate + D5W 245 mL 2016-11-19 19:13:00 No 15 mmol, 5 mL, Route: IVPB, PRN, Dosing Weight 217, kg, PRN Abnormal Lab Result, For NON-ICU Patients Only., Start date: 11/19/16 13:13:00 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, Duration: 30 day, Stop date: 12/19/16 14:12:00 CDT [facility] Calcium Gluconate 2016-11-19 19:13:00 No Notes: WASTE: F/P - Sink; E - Municipal Trash [facility] Magnesium Sulfate 2016-11-19 19:13:00 No Notes: WASTE: F/P - Sink; E - Municipal Trash [facility] Magnesium Oxide 2016-11-19 19:13:00 No Notes: (Same as: Mag-Ox 400) Magnesium oxide [id number] elemental magnesium Dose=____mg magnesium oxide (___mg elemental magnesium) Jimenez montero potassium phosphate-sodium phosphate 250 mg-280 mg-160 mg [...] No Notes: (Same as: Potassium Chloride) Jimenez Talha Sodium Chloride 0.154 MEQ/ML Injectable Solution 2016-11-19 18:5 8:00 No 1,000 mL, Rate: 100 ml/hr, I nfuse over: 10 hr, Route: IV, Dosing Weight 217 kg, Total Volume: 1,000, Start date: 11/19/16 12:58:00 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, Duration: 30 day, Stop date: 12/19/16 12:57:00 CDT Chance Palencia metoprolol tartrate 2016-02-12 22:00:00 No Notes: (Same as: Lopressor) Jimenez Palencia meropenem 500 MG Injection [Merrem] 2016-02-12 20:17:00 Yes 500 mg, IV, Q6H Jimenez Palencia Glipizide 5 MG Oral Tablet 2016-02-12 19:18:00 Yes 2.5 mg = 0.5 tab, PO, Daily, # 15 tab, 0 Refill(s) Alessandro Lugo tamsulosin 0.4 mg oral capsule 2016-02-12 19:18:00 [...] Hydrocodone Bitartrate 5 MG Oral Tabl et [[place] 5/325] 2016-02-12 19:18:00 Yes 1 tab, PO, Q6H, PRN Pain Score 1-3, 0 Refill(s) [facility] Spironolactone 2016-02-10 14:47:00 No Notes: (Same As: Aldactone) [facility] Gentamicin level scheduled 2016-02-10 00:30:00 No Gentamicin level scheduled, Gent level due, Drug form: MISC, Route: MISC, ONCE, 02/09/16 19:30:00 CDT, Stop date: 02/09/16 19:30:[address] jose a Palencia Tums 2016-02-09 14:00:00 No Notes: (Same As: Tums) Calcium Carbonate 500 mg = 200 mg elemental calcium Dose = mg calcium carbonate ( mg elemental calcium) [facility] Famotidine 40 MG Oral Tablet [Pepcid] 2016-02-09 02:30:00 N o Notes: (Same as: Pepcid) [facility] Flomax 2016-02-08 22:00:00 No Notes: (Same As: Flomax) "Do Not Crush" [facility] Saline Flush 0.9% 2016-02-08 21:00:00 No Notes: (Same as: BD Posiflush) [facility] Lidocaine Hydrochloride 10 MG/ML Injectable Solution 02-07 19:00:00 No Notes: Preservative free. (Same as: Xyl ocaine MPF) [facility] Saline Flush 0.9% 2016-02-08 18:06:00 No Notes: (Same as: BD Posiflush) [facility] Gentamicin level scheduled 2016-02-08 00:30:00 No Gentamicin level scheduled, Gent level due, Drug form: MISC, Route: MISC, ONCE, 02/07/16 19:30:00 CDT, Stop date: 02/07/16 19:30:00 [facility] potassium phosphate + Sodium Chloride 0.9% IV 250 mL 02-06 00:02:00 No Notes: (Same as: K Phosphate.) 1 mMol phoshate has 1.47 mEq potassium Infuse over 4 hours [facility] metoprolol tartrate 2016-02-06 13:25:00 No Notes: (Same as: Lopressor) [facility] Merrem 2016-02-05 23:00:00 No 50, Extended infusion, infuse over 3 hours, Start date: 02/05/16 18:00:00 CDT, Duration: 30 day, Stop date: 03/06/16 12:00:00 CDT [facility] Gentamicin trough due 2016-02-05 20:30:00 No Gentamicin trough due, -, Drug form: MISC, Route: MISC, ONCE, 02/05/16 15:30:00 CDT, Stop date: 02/05/16 15:30:00 CDT [facility] potassium phosphate + Sodium Chloride 0.9% IV 250 mL 02-04 12:51:00 No Notes: (Same as: K Phosphate.) 1 mMol phoshate has 1.47 mEq potassium Infuse over 4 hours [facility] meropenem + Sodium Chloride 0.9% IV 100 mL 2016-02-05 06:00:00 No Notes: Same as Merrem MEDICATION WASTE Product Size: 500 mg Product Wasted: ___ mg [facility] Zofran 2016-02-05 02:54:00 No Notes: (Same as: Zofran) MEDICATION WASTE Product Size: 4 mg Product Wasted: ___ mg [facility] metoprolol tartrate 2016-02-05 02:00:00 No Notes: (Same as: Lopressor) [facility] Calcium Gluconate 2016-02-04 23:06:00 No Notes: WASTE: F/P - Sink; E - Municipal Trash Bin [facility] potassium chloride 2016-02-04 23:06:00 No Notes: Infuse at a rate of 10 mEq/hr. (Same as: KCL) [facility] [place] potassium phosphate + Sodium Chloride 0.9% IV 250 mL 02-03 23:06:00 No Notes: (Same as: K Phosphate.) 1 mMol phoshate has 1.47 mEq potassium Infuse over 4 hours [facility] sodium phosphate + Sodium Chloride 0.9% IV 250 mL 2016-02-04 23:06:00 No 30 mmol, 10 mL, Rout e: IVPB, PRN, Dosing Weight 95, kg, PRN Abnormal Lab Result, For NON-ICU Patients Only., Start date: 02/04/16 18:06:00 CDT, Duration: 30 day, Stop date: 03/05/16 18:05:00 CDT [facility] potassium phosphate-sodium phosphate 250 mg-278 mg-164 mg or al powder 2016-02-04 23:06:00 No Notes: (Same as: Neutra-Phos) Each 1.25 gm pkt has 250mg phosphorous. Mix w/2.5oz water and stir. [facility] Magnesium Oxide 2016-02-04 23:06:00 No Notes: (Same as: Mag-Ox 400) Magnesium oxide [id number] elemental magnesium Dose=____mg magnesium oxide (___mg elemental magnesium) [facility] montero Magnesium Sulfate 2016-02-04 23:06:00 No Notes: WASTE: F/P - Sink; E - Municipal Trash Bin Jimenez Palencia gentamicin + Sodium Chloride 0.9% IV 100 mL 2016-02-04 21:00:00 No Notes: TIME CRITICAL MEDICATION (Same as Garamycin) [facility] Gentamicin Sulfate ([facility]) 2016-02-04 20:00:00 No 1 ea, Route: MISC, Dosing Weight 95, kg, ONCALL, Start date: 02/04/16 15:00:00 CDT, Duration: 1 doses or times, Pharmacy to dose Chance Palencia Labetalol 2016-02-04 19:49:00 No Notes: (Same as: Normodyne, Trandate) Push over 2 minutes Give bolus over 2-3 minutes. [facility] Doxazosin 2016-02-04 14:00:00 No Notes: (Sa me as: Cardura) [facility] potassium phosphate + Sodium Chloride 0.9% IV 250 mL 02-03 12:36:00 No Notes: (Same as: K Phosphate.) 1 mMol phoshate has 1.47 mEq potassium Infuse over 4 hours [facility] sodium phosphate 2016-02-04 12:36:00 No 15 mmol, Route: IVPB, PRN, Dosing Weight 95, kg, PRN Abnormal Lab Result, Start date: 02/04/16 7:36:00 CDT, Duration: 30 day, Stop date: 03/05/16 7:35:00 CDT [facility] [place] sodium phosphate + Sodium Chloride 0.9% IV 250 mL 2016-02-04 12:20:00 No 15 mmol, 5 mL, Route : IVPB, PRN, Dosing Weight 95, kg, PRN Abnormal Lab Result, Start date: 02/04/16 7:20:00 CDT, Duration: 30 day, Stop date: 03/05/16 7:19:00 CDT [facility] potassium phosphate + Sodium Chloride 0.9% IV 250 mL 02-02 16:39:00 No Notes: (Same as: K Phosphate.) 1 mMol phoshate has 1.47 mEq potassium Infuse over 4 hours [facility] tramadol hydrochloride 50 MG Oral Tablet 2016-02-03 02:04:00 Yes 50 mg = 1 tab, PO, Q8H, PRN Pain Score 6-10, 0 Refill(s) Jimenez Palencia Metformin 2016-02-03 02:04:00 No 1,000 mg, PO, TID, 0 Refill(s) [facility] Amlodipine 2016-02-03 02:04:00 Yes 1 0 mg, PO, Daily, 0 Refill(s) [facility] acyclovir 200 mg oral capsule 2016-02-03 02:04:00 Yes 200 mg = 1 cap, PO, Daily, PRN infection, 0 Refill(s) [facility] benzonatate 100 mg oral capsule 2016-02-03 02:04:00 Yes 100 mg = 1 cap, PO, TID, 0 Refill(s) [facility] nitrofurantoin 2016-02-03 02:04:00 No 100 mg, PO, BID, # 14 cap, 0 Refill(s) [facility] meclizine 25 mg oral tablet 2016-02-03 02:04:00 Yes 25 mg = 1 tab, PO, TID, PRN Nausea, 0 Refill(s) Helenoria l Talha doxazosin 1 mg oral tablet 2016-02-03 02:04:00 Yes 1 mg = 1 tab, PO, Daily, every evening, 0 Refill(s) Helenor ial [facility] Hydrochlorothiazide 2016-02-03 02:04:00 No 25 mg, PO, Daily, 0 Refill(s) [facility] lisinopril 40 mg oral tablet 2016-02-03 02:04:00 No 40 mg = 1 tab, PO, Daily, 0 Refill(s) [facility] testosterone 200 mg/mL intramuscular solution 2016-02-03 02:04:0 0 No 200 mg = 1 ml, IM, q2wk, 0 Refill(s) [facility] Ibuprofen 2016-02-03 02:04:00 No 200 mg, 0 Refill(s) [facility] heparin 2016-02-03 02:00:00 No Notes: porci ne heparin [facility] Zosyn 2016-02-02 23:00:00 No Notes: (Same as: Zosyn) Dosing based on Piperacillin component MEDICATION WASTE Product Size: 3375 mg Product Wasted: 0 mg [facility] Acetaminophen 325 MG / Hydrocodone Bitartrate 5 MG Oral Tabl et [[place] 5/325] 2016-02-02 22:50:00 No Notes: (Same as: [place] 325/5) Do not exceed 4gm/day of acetaminophen. [facility] nn Amlodipine 2016-02-02 22:00:00 No Notes: (S mervat as: Norvasc) [facility] Saline Flush 0.9% 2016-02-02 21:28:00 No Notes: (Same as: BD Posiflush) [facility] Sodium Chloride 0.0769 MEQ/ML Injectable Solution 2016-02-02 21:28:00 No 1,000 mL, Rate: 75 m l/hr, Infuse over: 13.3 hr, Route: IV, Dosing Weight 95 kg, Total Volume: 1,000, Start date: 02/02/16 16:28:00 CDT, Stop date: 03/03/16 16:27:00 CDT [facility] Acetaminophen 2016-02-02 21:28:00 No Notes: Do not exceed 4 gm/day. (Same as: Tylenol) [facility] Docusate 2016-02-02 21:28:00 No Notes: (Same as: Colace) (Do Not Crush) [facility] Ondansetron 2016-02-02 21:28:00 No Notes: (Same as: Gale) MEDICATION WASTE Product [...] or times, Stop date: 02/02/16 13:00:00 CDT Jimenez Palencia Rocephin 2016-02-02 17:59:00 No Notes: (Same As: Garry). Use with 100 mL NS and infuse over 30 min MEDICATION WASTE Product Size: 1000 mg Product Wasted: 0 mg Jimenez salazarguadalupe Acetaminophen/Codeine Phosphate (Tylenol # 3*) 1 Ea TA B Acetaminophen/Codeine Phosphate (Tylenol # 3*) 1 Ea TAB Yes 1 Every 6 Hours as needed for Pain [facility] Atenolol Atenolol Yes 25 Twice A Day [facility] Cholecalciferol (Vitamin D3) (Vitamin D3) 1,000 Unit C APSULE Cholecalciferol (Vitamin D3) (Vitamin D3) 1,000 Unit CAPSULE Yes 1000 Daily [facility] Cyanocobalamin (Vitamin B-12) 1,000 Mcg TAB Cyanocobal brar (Vitamin B-12) 1,000 Mcg TAB Yes 1000 Daily [facility] Finasteride Finasteride Yes 5 Bedtime [facility] Folic Acid Folic Acid Yes 800 Daily I [facility] Furosemide (Lasix) 20 Mg TABLET Furosemide (Lasix) 20 Mg TABLET Yes 20 Twice A Day [facility] Glipizide Glipizide Yes 5 Twice A Day [facility] Lisinopril Lisinopril Yes 40 Daily [facility] Pantoprazole Sodium (Protonix) 40 Mg TABLET. Pantopr azole Sodium (Protonix) 40 Mg TABLET. Yes 40 Daily [facility] Pyridoxine Hcl (Vitamin B-6) 50 Mg TABLET Pyridoxine H cl (Vitamin B-6) 50 Mg TABLET Yes 50 Daily [facility] Tamsulosin Hcl Tamsulosin Hcl Yes .4 Bedtime [facility] Levocetirizine Dihydrochloride Levocetirizine Dihydrochloride 2019-09-27 00:00:00 No 5 Daily as needed for Allergy [facility] Fluticasone Propionate Fluticasone Propionate 2019-09-23 00:00:00 No 1 Twice A Day as needed for Allergy [facility] Potassium Chloride Potassium Chloride 2019-09-23 00:00:00 No 10 Bedtime [facility] Aspirin (Ecotrin) 81 Mg TABLET. Aspirin (Ecotrin) 81 Mg TABLET . 2019-09-22 00:00:00 No 81 Daily [facility] Ferrous Sulfate Ferrous Sulfate 2019-09-22 00:00:00 No 325 Daily [facility] Cholecalciferol (Vitamin D3) (Vitamin D) 400 Unit CAPS ULE Cholecalciferol (Vitamin D3) (Vitamin D) 400 Unit CAPSULE 2019-07-03 00:00:00 No 1000 Daily [facility] Furosemide Furosemide 2019-07-03 00:00:00 No Alyssa ly [facility] Hydroxyzine Hcl Hydroxyzine Hcl 2019-07-03 00:00:00 No 25 Three Times A Day [facility] Amoxicillin/Potassium Clav (Augmentin 875-125 Tablet) 1 Each TABLET Amoxicillin/Potassium Clav (Augmentin 875-125 Tablet) 1 Each TABLET 2019-06-20 00:00:00 No 1 Every 12 Hours as needed for In fection [facility] Furosemide (Lasix) 40 Mg TABLET Furosemide (Lasix) 40 Mg TABLET 2019-06-20 00:00:00 No 20 Twice A Day [facility] Ibuprofen (Advil) 200 Mg CAPSULE Ibuprofen (Advil) 200 Mg CAPSUL E 2019-06-20 00:00:00 No 200 Every 6 Hours as needed for Mild Pain (1-3) Or Fever>100.8 [facility] Potassium Chloride Potassium Chloride 2019-06-20 00:00:00 No 20 Twice A Day [facility] Acyclovir Acyclovir 2019-06-14 00:00:00 No 200 Daily [facility] Amlodipine Besylate Amlodipine Besylate 2019-06-14 00:00:00 No 10 Daily [facility] Lovastatin Lovastatin 2019-06-14 00:00:00 No 10 Bed time [facility] Meclizine Hcl Meclizine Hcl 2019-06-14 00:00:00 No 25 Daily [facility] Furosemide (Lasix) 40 Mg TABLET Furosemide (Lasix) 40 Mg TABLET 2019-01-31 00:00:00 No 40 12 Pm [facility] Clonidine Hcl Clonidine Hcl 2018-12-14 00:00:00 No .2 Twice A Day [facility] Hydrochlorothiazide (Esidrix*) 25 Mg TAB Hydrochloroth iazide (Esidrix*) 25 Mg TAB 2018-12-14 00:00:00 No 25 Daily [facility] Furosemide Furosemide 2018-12-13 00:00:00 No 20 Alyssa ly [facility] Losartan Potassium Losartan Potassium 2018-12-13 00:00:00 No 25 Daily [facility] Pantoprazole Sodium (Protonix) 40 Mg TABLET. Pantopr azole Sodium (Protonix) 40 Mg TABLET. 2018-12-13 00:00:00 No 40 Daily [facility] Vital Signs Vital Name Observation Time Observation Value Comments Source Body Temperature 2019-10-27 18:41:00 98.5 [degF] [facility] Respitory Rate 2016-11-22 16:32:00 Memori al [facility] Heart Rate 2016-11-22 16:32:00 [facility] Systolic (mm Hg) 2016-11-22 16:32:00 Jhon rial [place] Diastolic (mm Hg) 2016-11-22 16:32:00 Mem orial [place] Temperature Oral (F) 2016-11-22 16:32:00 98.7 F [facility] Systolic (mm Hg) 2016-11-22 12:15:00 Jhon rial [place] Diastolic (mm Hg) 2016-11-22 12:15:00 Mem orial [place] Heart Rate 2016-11-22 12:15:00 [facility] Respitory Rate 2016-11-22 12:15:00 Memori al [place] Temperature Oral (F) 2016-11-22 12:15:00 98.8 F [facility] Temperature Oral (F) 2016-11-22 09:00:00 98.3 F [facility] [place] Respitory Rate 2016-11-22 09:00:00 Memori al [place] Systolic (mm Hg) 2016-11-22 09:00:00 Jhon rial [place] Diastolic (mm Hg) 2016-11-22 09:00:00 Mem orial [place] Heart Rate 2016-11-22 09:00:00 [facility] Weight 2016-11-19 18:54:00 [facility] BMI Calculated 2016-11-19 18:54:00 Memori al [place] Height 2016-11-19 18:54:00 167.64 cm [facility] [place] Respitory Rate 2016-02-12 17:00:00 Memori al [place] Temperature Oral (F) 2016-02-12 17:00:00 98.3 F [facility] [place] Heart Rate 2016-02-12 17:00:00 [facility] Systolic (mm Hg) 2016-02-12 17:00:00 Jhon rial [facility] Diastolic (mm Hg) 2016-02-12 17:00:00 [facility] Heart Rate 2016-02-12 12:00:00 [facility] [place] Respitory Rate 2016-02-12 12:00:00 [facility] [place] Temperature Oral (F) 2016-02-12 12:00:00 97.8 F [facility] Systolic (mm Hg) 2016-02-12 12:00:00 Jhon rial [place] Diastolic (mm Hg) 2016-02-12 12:00:00 [facility] [place] Systolic (mm Hg) 2016-02-12 05:00:00 Jhon rial [place] Diastolic (mm Hg) 2016-02-12 05:00:00 [facility] [place] Temperature Oral (F) 2016-02-12 05:00:00 98.4 F [facility] [place] Heart Rate 2016-02-12 05:00:00 [facility] [place] Respitory Rate 2016-02-12 05:00:00 Alessandro zendejas [place] Weight 2016-02-02 16:01:00 [facility] BMI Calculated 2016-02-02 16:01:00 Alessandro al [place] Height 2016-02-02 16:01:00 170.18 cm [facility] [place] Procedures Procedure Date / Time Performed Performing Clinician Sour e INSPECTION OF LOWER INTESTINAL TRACT, ENDO 2019-09-27 00:00:00 [facility] EXCISION OF DUODENUM, ENDO, DIAGN 2019-09-26 00:00:00 [facility] EXCISION OF STOMACH, PYLORUS, ENDO, DIAGN 2019-09-26 00:00:00 [facility] EXCISION OF LOWER ESOPHAGUS, ENDO, DIAGN 2019-09-26 00:00:00 [facility] TRANSFUSE NONAUT RED BLOOD CELLS IN PERIPH VEIN, PERC 2019-09-23 00:00:00 [facility] TRANSFUSE NONAUT RED BLOOD CELLS IN PERIPH VEIN, PERC 2019-07-04 00:00:00 [facility] EXTRACTION OF ILIAC BONE MARROW, PERC APPROACH, DIAGN 2019-06-18 00:00:00 [facility] TRANSFUSE NONAUT RED BLOOD CELLS IN PERIPH VEIN, PERC 2019-06-18 00:00:00 [facility] CT orbit/ear/fossa w/o dye 2019-06-18 00:00:00 C ABEL [facility] Computed tomography of chest without contrast 2019-06-14 00:00:0 0 AVIS FLORES [facility] CT of abdomen and pelvis without contrast 2019-06-14 00:00:00 [facility] X-ray of chest, single view 2019-06-13 00:00:00 JEREMIAH FLORES [facility] Carpal tunnel release [facility] Chole[facility] Rotator cuff repair [facility] Plan of Care Planned Activity Planned Date Details Comments Source Future Scheduled Test 2020-04-12 00:00:00 INFLUENZA VACCINE [code = INFLUENZA VACCINE] [facility] Future Scheduled Test 2000 00:00:00 65+ PNEUMOCOCCAL V ACCINE (1 of 2 - PCV13) [code = 65+ PNEUMOCOCCAL VACCINE (1 of 2 - PCV13)] [facility] Future Scheduled Test 1985 00:00:00 SHINGLES VACCINES (#1) [code = SHINGLES VACCINES (#1)] [facility] Encounters Start Date/Time End Date/Time Encounter Type Admission Type Attendi [facility] Care Department Encounter ID Source 2020-04-03 07:05:00 2020-04-03 07:05:00 Departed Emergency Room [facility] [id number] [facility] 2019-10-27 17:04:00 2019-10-27 18:30:00 Departed Emergency Room 1 ML PEREZ [facility] [id number] CH I [facility] 2019-09-22 19:07:00 2019-09-27 13:08:00 Discharged Inpatient 1 KIM ORDONEZ [facility] [id number] [facility] 2019-07-03 14:43:00 2019-07-08 12:07:00 Discharged Inpatient 1 GENAROJAIRON MERCHANT [facility] [id number] [facility] 2019-06-13 21:55:00 2019-06-20 18:33:00 Discharged Inpatient 1 AVIS FLORES [facility] [id number] [facility] 2019-01-31 19:40:00 2019-02-02 14:42:00 Discharged Inpatient (obs) 1 AVIS FLORES [facility] [id number] [facility] 2018-12-21 08:39:00 2018-12-21 23:59:00 Outpatient Yeny, D avibrittany Moralezne [facility] M[facility] [id number] 2018-12-13 05:25:00 2018-12-15 10:45:00 Discharged Inpatient (obs) 1 MALINA ANGELA [facility] [id number] [facility] 2018-12-07 09:43:00 2018-12-07 23:59:00 Outpatient Yeny, D avibrittany Demar [facility]IP M[facility]OIP [id number] 2018-01-09 11:05:00 2018-01-09 23:59:00 Outpatient Yeny, D avibrittany Demar [facility] M[facility]IP [id number] 2018-01-09 11:05:00 2018-01-09 23:59:00 Outpatient Yeny, Brittany avid Demar [facility]IP M[facility]IP [id number] 2017-12-28 08:43:00 2017-12-28 23:59:00 Outpatient Yeny, D avibrittany Demar MHOIB MHOIB [id number] 2017-12-26 08:10:00 2017-12-26 23:59:00 Outpatient Yeny, Brittany avid Demar [facility] M[facility]OIP [id number] 2017-11-29 08:39:00 2017-11-29 23:59:00 Outpatient Yeny, D avid Demar [facility] M[facility]OIP [id number] 2016-11-19 12:05:00 2016-11-22 13:52:00 Outpatient [place] [facility] [id number] 2016-06-17 12:38:00 2016-06-17 23:59:00 Outpatient Dillan Singh [facility]IP M[facility]IP [id number] 2016-02-02 10:35:2016-02-12 17:20:00 Outpatient Lulú Logan [facility] [id number] Results Test Description Test Time Test Comments Results Result Comments Source CHEST SINGLE (PORTABLE) 2020-04-17 07:06:00 [facility] [address] [place] [address] Patient Name: ALEX PETERS MR #: [id number] : 1935 Age/Sex: 85/M Req #: [id number] Adm Physician: Ordered by: JEREMIAH FLORES DO Report #: [id number] Location: ER Room/Bed: Procedure: [id number] DX/CHEST SINGLE (PORTABLE) Exam Date: 04/17/20 Exam Time: 0405 REPORT STATUS: Signed EXAMINATION: CHEST SINGLE (PORTABLE) INDICATION: Fever and difficulty urinating. COMPARISON: Radiograph dated 09/22/2019 FINDINGS: TUBES and LINES: None. LUNGS: Patchy bibasilar opacities. PLEURA: No pleural effusion or pn eumothorax. HEART AND MEDIASTINUM: The cardiomediastinal silhouette is unremarkable. BONES AND SOFT TISSUES: No acute osseous lesion. Soft tissues are unremarkable. UPPER ABDOMEN: No free air under the diaphragm. IMPRESSION: Patchy bibasilar opacities could represent atelectasis or pneumonia/viral pneumonia. Radiographic follow-up in 6-8 weeks to ensure resolution is recommended. Signed by: Avis Karus MD on 04/17/2020 7:08 AM Dictated By: AVIS KRAUS MD 07 Transcribed By: CALVIN on 04/17/20 0708 COPY TO: JEREMIAH FLORES DO SURGICAL SPECIMENS 2020-04-14 19:10:00 RUN DATE: 04/14/20 [facility] *LIVE* PAGE 1 RUN TIME: 1909 Specimen Inquiry RUN USER: INTERFACE PATIENT: ALEX PETERS LOC: [facility] U #: [id number] AGE/SX: 85/M ROOM: [facility] RE04/03/20REG DR: Tre Donnelly MD : 35 BED: 1 DIS: 04/11/20 STATUS: DIS IN TLOC: SPEC #: [id number] RECD: 04/11/20 STATUS: SOURajendra REQ #: [id number] STEPHANIE: 04/11/[address] [facility] [address]: Tre Donnelly MD ENTERED: 04/14/20 SP TYPE: SURG SPEC OTHR DR: Self Referred Dionte Leonard MD,Williams Vera,Sarbjit Rea,Pedro Luis Martinez,Alex D DO GlennyMichael cline MD, Aziza F MD Sarvat, Bilal MD Tran, Christopher MDORDERED: GROSS AND MICRO CODES: [id number] - PLEURAL FLUID COPIES TO: Self Referred Dionte Leonard MD [address] [place] [address] Williams Ramirez MD [address] [place] [address] [address] [place] [address] Sarbjit Vera MD [address] [facility] [place] [address] [place] [address] Pedro Luis Rea MD [address] [facility] [address] [place] [address] Alex Martinez DO [address] [place] [address] CONTINUED ON NEXT PAGE RUN DATE: 04/14/20 [facility] *LIVE* PAGE 2 RUN TIME: 1909 Specimen Inquiry RUN USER: INTERFACE ------- -----SPEC #: [id number] PATIENT: PETERSALEX #[id number] (Continued) COPIES TO: (Continued) Michael Murritea MD [address] [place] [address] Tre Donnelly MD [address] [place] [address] Maria Esther Jaramillo MD [address] [id number] Cyndi Krishna MD [address] [place] [id number] Oren Flores MD [address] [place] [address] PROCEDURES: GROSS AND MICRO (Incomplete) TISSUES: 1. [...] CONTINUED ON NEXT PAGE RUN DATE: 04/14/20 [facility] *LIVE* PAGE 3 RUN TIME: 1909 Specimen Inquiry RUN USER: INTERFACE SPEC #: [id number] PATIENT: ALEX PETERS #[id number] (Continued) POST-OP DIAGNOSIS None given PRE-OP DIAGNOSIS None given- Signed SIGNATURE ON FILE Melissa Abel MD 04/14/20 1910 END OF REPORT BASIC METABOLIC PANEL 2020-04-14 [...] CA) 9.3 mg/dL 8.0-10.5 N PROTEIN ELECTROPHORESIS [id number] 14:15:00* Test Item Value Reference Range Interpretation Comments TOTAL PROTEIN (test code = PROTE) 8.0 g/dL 6.0-8.5 ALBUMIN (test code = ALBE) 3.8 g/dL 2.9-4.4 KCSSS-5-QPDPGEOG (test code = A1G) 0.5 g/dL 0.0-0.4 A FHVSM-8-DWVBVLDS (test code = A2G) 1.1 g/dL 0.4-1.0 [...] Evidenceof monoclonal protein is not apparent.Performed At: HD [facility] [address] [id number] Kyle L MD Ph:[phone] At: DA [facility] [address] [facility] [address] [place], [place] [address]Zulrdlc CN MD Ph:[phone] [id number] 14:15:00* Test Item Value Reference Range Interpretation Comments PHOSPHOROUS (test code = PHOS) 2.8 MG/DL 2.5-4.9 N LACTIC DEHYDROGENASE(LDH)2020-04-14 14:15:00* Test Item Value Reference Range Interpretation Comments LACTIC DEHYDROGENASE(LDH) (test code = LDH) 760 IUnits/L 87-241 H [id number] 14:15:00* Test Item Value Reference Range Interpretation Comments MAGNESIUM (test code = MAG) 2.30 mg/dL 1.8-2.4 N TOTAL IRON BINDING [id number] 14:15:00* Test Item Value Reference Range Interpretation Comments SERUM IRON (test code = IRON) 76 mcg/dL 35-150 N TOTAL IRON BINDING CAPACITY (test code = TIBC) 195 mcg/dL 260-445 L UIBC (test code = UIBC) 119 mcg/dL IRON SATURATION (test code = FESAT) 39.0 % 14-34 H VITAMIN [id number] 14:15:00* Test Item Value Reference Range Interpretation Comments VITAMIN B12 (test code = VITB12) 1389 pg/mL 193-986 H FOLIC [id number] 14:15:00* Test Item Value Reference Range Interpretation Comments FOLIC ACID (test code = FOL) 42.8 ng/mL 3.1-17.5 H LEUK/LYMPHOMA [id number] 14:15:00* Test Item Value Reference Range Interpretation [...] CD33, CD34, CD38, CD45, CD56, CD64, CD117,HLA-DR, [place], Lambda (24 Markers) Electronic Sharonda Gonsales M.D., Pathologist [id number] 14:15:00* Test Item Value Reference Range Interpretation Comments FERRITIN (test code = JACKIE) 1421.4 ng/mL 23.9-336.2 H FLUID [id number] 10:08:00* Test Item Value Reference Range Interpretation Comments FLUID PH (test code = PHFL) 8.0 Not Estab. The reference interval(s) and other method performance specificationshave not been established for this body fluid. The test result must beintegrated into the clinical context for interpretation.Performed At: [address] [id number] Hull MD Ph:[phone] COMMENTS: PLEURAL FLUID PHFLUID [id number] 10:08:00* Test Item Value Reference Range Interpretation Comments FLUID GLUCOSE (test code = GLUFL) 105 MG/DL () Reference intervals and other method performancespecifications have not been established for this test. Thetest result should be integrated into the clinical contextfor interpretation. COMMENTS: PLEURAL FLUID PHFLUID [id number] 10:08:00* Test Item Value Reference Range Interpretation Comments FLUID PROTEIN (test code = PROTFL) 4.1 G/DL () COMMENTS: PLEURAL FLUID PHFLUID [id number] 10:08:00* Test Item Value Reference Range Interpretation Comments FLUID LDH (test code = LDHFL) 260 UNITS/L 50-1500 Reference intervals and other method performancespecifications have not been established for this test. Thetest result should be integrated into the clinical contextfor interpretation. COMMENTS: PLEURAL FLUID [id number] 16:44:00* Test Item Value Reference Range Interpretation Comments GLUBED (test code = GLUBED) 104 MG/DL 70-110 N Performed by certified help desk operator at [facility] [id number] 12:06:00* Test Item Value Reference Range Interpretation Comments GLUBED (test code = GLUBED) 91 MG/DL 70-110 N Performed by certified help desk operator at [facility] CBC W/AUTO [id number] 10:29:00* Test Item Value Reference Range Interpretation [...] NO SLIDE REVIEWED, CONSISTENT WITH AUTO DIFF. [id number] 09:44:00* Test Item Value Reference Range Interpretation Comments GLUBED (test code = GLUBED) 118 MG/DL 70-110 H Performed by certified help desk operator at [facility] - XR CHEST 1 [id number] 08:31:00 FAX: Sarbjit Jimenez MD [phone] [place]: St: ADM FAX: Alex Chan DO [phone] FAX: Tre Villaseñor I [phone] Name: ALEX PETERS [facility] : 1935 Age/S: 85/M [address] [place] [address] Blvd Unit #: [id number] Loc: G.6605 [place] [address] Phys: Sarbjit Vera MD Acct: [id number] Dis Date: Status: ADM IN ONE #: [phone] Exam Date: 04/11/2020 0552 FAX #: [phone] Reason: pneumonia EXAMS: CPT CODE: [id number] XR CHEST 1 V 55420 PROCEDURE: MARCIA ST SINGLE VIEW INDICATION: pneumonia [...] right pleural-parenchymal disease at one-day interval. SL: [id number] at 0831 Reported and signed by: Martin Emanuel M.D. CC: Sarbjit Vera MD; Alex Martinez DO; Tre Wang MD Technologist: Selene Light, RT(R)(M); Renetta Johnson RT(R) Trnutrd Date/Time/By: 04/11/2020 (0831) : By: JoanneKWL Orig Print D/T: S: 04/11/2020 (3934) PAGE 1 Signed Report CBC W/AUTO [id number] 07:37:00* Test Item Value Reference Range Interpretation [...] MANUAL DIFF REQUIRED (test code = MDIFF) [id number] 06:53:00* Test Item Value Reference Range Interpretation Comments GLUBED (test code = GLUBED) 123 MG/DL 70-110 H Performed by certified help desk operator at [facility] FLUID [id number] 05:52:00* Test Item Value Reference Range Interpretation Comments FLUID GLUCOSE (test code = GLUFL) 105 MG/DL Reference intervals and other method performancespecifications have not been established for this test. Thetest result should be integrated into the clinical contextfor interpretation. COMMENTS: PLEURAL FLUID PHFLUID [id number] 05:52:00* Test Item Value Reference Range Interpretation Comments FLUID PROTEIN (test code = PROTFL) 4.1 G/DL COMMENTS: PLEURAL FLUID PHFLUID [id number] 05:52:00* Test Item Value Reference Range Interpretation Comments FLUID LDH (test code = LDHFL) 260 UNITS/L 50-1500 N Reference intervals and other method performancespecifications have not been established for this test. Thetest result should be integrated into the clinical contextfor interpretation. COMMENTS: PLEURAL FLUID PHFLUID [id number] 05:52:00* Test Item Value Reference Range Interpretation Comments FLUID PH (test code = PHFL) COMMENTS: PLEURAL FLUID PHFLUID [id number] 05:52:00* Test Item Value Reference Range Interpretation Comments FLUID GLUCOSE (test code = GLUFL) 105 MG/DL () Reference intervals and other method performancespecifications have not been established for this test. Thetest result should be integrated into the clinical contextfor interpretation. COMMENTS: PLEURAL FLUID PHFLUID [id number] 05:52:00* Test Item Value Reference Range Interpretation Comments FLUID PROTEIN (test code = PROTFL) 4.1 G/DL () COMMENTS: PLEURAL FLUID PHFLUID [id number] 05:52:00* Test Item Value Reference Range Interpretation Comments FLUID LDH (test code = LDHFL) 260 UNITS/L 50-1500 Reference intervals and other method performancespecifications have not been established for this test. Thetest result should be integrated into the clinical contextfor interpretation. COMMENTS: PLEURAL FLUID PHFLUID [id number] 05:51:00* Test Item Value Reference Range Interpretation Comments FLUID GLUCOSE (test code = GLUFL) MG/DL COMMENTS: PLEURAL FLUID PHFLUID [id number] 05:51:00* Test Item Value Reference Range Interpretation Comments FLUID PROTEIN (test code = PROTFL) G/DL COMMENTS: PLEURAL FLUID PHFLUID [id number] 05:51:00* Test Item Value Reference Range Interpretation Comments FLUID LDH (test code = LDHFL) 260 UNITS/L 50-1500 N Reference intervals and other method performancespecifications have not been established for this test. Thetest result should be integrated into the clinical contextfor interpretation. COMMENTS: PLEURAL FLUID PHFLUID [id number] 05:51:00* Test Item Value Reference Range Interpretation Comments FLUID PH (test code = PHFL) COMMENTS: PLEURAL FLUID PHFLUID [id number] 05:51:00* Test Item Value Reference Range Interpretation Comments FLUID GLUCOSE (test code = GLUFL) MG/DL COMMENTS: PLEURAL FLUID PHFLUID [id number] 05:51:00* Test Item Value Reference Range Interpretation Comments FLUID PROTEIN (test code = PROTFL) G/DL COMMENTS: PLEURAL FLUID PHFLUID [id number] 05:51:00* Test Item Value Reference Range Interpretation Comments FLUID LDH (test code = LDHFL) 260 UNITS/L 50-1500 Reference intervals and other method performancespecifications have not been established for this test. Thetest result should be integrated into the clinical contextfor interpretation. COMMENTS: PLEURAL FLUID [id number] 20:35:00* Test Item Value Reference Range Interpretation Comments GLUBED (test code = GLUBED) 121 MG/DL 70-110 H Performed by certified help desk operator at [facility] - XR CHEST 1 [id number] 17:23:00 FAX: Sarbjit Jimenez MD [phone] [place]: St: ADM FAX: Alex Chan [phone] FAX: Tre Villaseñor I [phone] Name: ALEX PETERS [facility] : 1935 Age/S: 85/M [address] [place] [address] Unit #: [id number] Loc: G.6[address] [place] [address] Phys: Sarbjit Vera MD Acct: [id number] Dis Date: Status: ADM IN ONE #: [phone] Exam Date: 04/10/2020 1705 FAX #: [phone] Reason: Post thoracentesis EXAMS: CPT CODE: [id number] XR CHEST 1 V 65798 Chest, single view dated 04/10/2020. HISTORY: Shortness [...] Earnestine Rico, RT(R)(M) Trnscrd Date/Time/ By: 04/10/2020 (0677) : By: JoanneDMM Orig Print D/T: S: 04/10/2020 (4 771) PAGE 1 Signed Report PLEURAL FLD CELL [id number] 16:33:00* Test Item Value Reference Range Interpretation [...] code = MESPL) MODERATE MESOTHELIAL CELLS SEEN [id number] 16:03:00* Test Item Value Reference Range Interpretation Comments GLUBED (test code = GLUBED) 106 MG/DL 70-110 N Performed by certified help desk operator at [facility] PLEURAL FLD CELL [id number] 15:00:00* Test Item Value Reference Range Interpretation Comments PLEURAL FLD COLOR (test code = COLPL) PLEURAL FLD APPEARANCE (test code = APPPL) PLEURAL FLD WBC (test code = WBCPL) 557 cells/uL 0-500 H PLEURAL FLD RBC (test code = RBCPL) < 2000 Cells/uL 0-0 H PLEURAL FLD POLY (test code = POLYPL) % [id number] 11:25:00* Test Item Value Reference Range Interpretation Comments GLUBED (test code = GLUBED) 85 MG/DL 70-110 N Performed by certified help desk operator at [facility] CBC W/AUTO [id number] 10:42:00* Test Item Value Reference Range Interpretation [...] REVIEWED, CONSISTENT WITH AUTO DIFF. CBC W/AUTO [id number] 07:23:00* Test Item Value Reference Range Interpretation [...] DIFF REQUIRED (test code = MDIFF) PROTHROMBIN [id number] 06:16:00* Test Item Value Reference Range Interpretation [...] Infarction (to prevent recurrent infarct). THROMBOPLASTIN TIME [id number] 06:16:00* Test Item Value Reference Range Interpretation Comments THROMBOPLASTIN TIME PARTIAL (test code = PTT) 35.8 Seconds 25.0-39. 5 N Therapeutic Range: 50.4 - 88.3 Seconds Effective 12/26/2018 [id number] 21:11:00* Test Item Value Reference Range Interpretation Comments GLUBED (test code = GLUBED) 128 MG/DL 70-110 H Performed by certified help desk operator at [facility] [id number] 17:01:00* Test Item Value Reference Range Interpretation Comments GLUBED (test code = GLUBED) 91 MG/DL 70-110 N Performed by certified help desk operator at [facility] AG ASPER [id number] 14:11:00* Test Item Value Reference Range Interpretation Comments AG ASPER GALACTOMANNAN (test code = ASPGAG) 0.06 Index 0.00-0.49 Performed At: [address] [id number] Sanjai MD Ph:[phone] CBC W/AUTO [id number] 13:35:00* Test Item Value Reference Range Interpretation [...] NO SLIDE REVIEWED, CONSISTENT WITH AUTO DIFF. [id number] 11:54:00* Test Item Value Reference Range Interpretation Comments GLUBED (test code = GLUBED) 101 MG/DL 70-110 N Performed by certified help desk operator at [facility] [id number] 11:14:00* Test Item Value Reference Range Interpretation Comments GLUBED (test code = GLUBED) 109 MG/DL 70-110 N Performed by certified help desk operator at [facility] [id number] 08:25:00* Test Item Value Reference Range Interpretation Comments GLUBED (test code = GLUBED) 92 MG/DL 70-110 N Performed by certified help desk operator at [facility] CBC W/AUTO [id number] 08:23:00* Test Item Value Reference Range Interpretation [...] DIFF REQUIRED (test code = MDIFF) VANCOMYCIN [id number] 08:13:00* Test Item Value Reference Range Interpretation Comments VANCOMYCIN TROUGH (test code = VANCT) 13.9 mcg/mL 10.0-20.0 N 10-15 mcg/mL - Cellulitis, Urinary Tract Infection. 15-20 mcg/mL - Bacteremia, Infective Endocarditis, Meningitis, Osteomyelitis, Pneumonia, Severe Skin/Soft- Tissue Infection, Spinal Abscess. BASIC METABOLIC [id number] 08:13:00* Test Item Value Reference Range Interpretation [...] mg/dL 8.0-10.5 N - XR CHEST 1 [id number] 07:54:00 FAX: Sarbjit Jimenez MD [phone] [place]: St: ADM FAX: Alex Chan DO [phone] FAX: Tre Villaseñor I [phone] Name: AELX PETERS [facility] : 1935 Age/S: 85/M [address] [place] [address] Unit #: [id number] Loc: G.6605 [place] [address] Phys: Sarbjit Vera MD Acct: [id number] Dis Date: Status: ADM IN PH ONE #: [phone] Exam Date: 04/09/2020520 FAX #: [phone] Reason: Pneumonia EXAMS: CPT CODE: [id number] XR CHEST 1 V 56087 Clinical Indic ation: Pneumonia. Comparison: 04/07/2020. Impression: Chest , single view. Persistent right midlung consolidation. Increased size of right pleural effusion, now moderate. Cardiac silhouette is enlarged . Left lung atelectasis is improved. Osseous structures are unchanged. Overall appearance is slightly worsened from prior. SL: [id number] at 0754 Reported and signed by: Sil Broussard M.D. CC: Sarbjit Vera MD; Alex Martinez DO; Tre Wang MD Technologist: Selene Light, RT(R)(M); Renetta Johnson RT(R) [facility] Date/Time/By: 0 04/09/2020 (0754) : By: [email or web address] Orig Print D/T: S: 04/09/2020 (0757) PAGE 1 Signed Report AB MYCOPLASMA [id number] 23:07:00* Test Item Value Reference Range Interpretation Comments AB MYCOPLASMA IGM (test code = MYCOMAB) <770 U/mL 0-769 Negative <770Clinically significant amount of M. pneumoniae antibodynot detected. Low Positive 770 - 950M. pneumoniae specific IgM presumptively detected. Itis recommended that another sample be collected 1-2weeks later to assure reactivity. Positive >950Highly significant amount of M. pneumoniae specificIgM antibody detected.Performed At: [address] [id number] Hull MD Ph:[phone] [id number] 21:04:00* Test Item Value Reference Range Interpretation Comments GLUBED (test code = GLUBED) 140 MG/DL 70-110 H Performed by certified help desk operator at [facility] [id number] 15:11:00* Test Item Value Reference Range Interpretation Comments HAPTOGLOBIN (test code = HAPT) 260 mg/dL 38-329 Performed At: [facility] [id number] Hull MD Ph:[phone] [id number] 12:00:00* Test Item Value Reference Range Interpretation Comments GLUBED (test code = GLUBED) 114 MG/DL 70-110 H Performed by certified help desk operator at [facility] CBC W/AUTO [id number] 11:47:00* Test Item Value Reference Range Interpretation [...] NO SLIDE REVIEWED, CONSISTENT WITH AUTO DIFF. [id number] 08:26:00* Test Item Value Reference Range Interpretation Comments GLUBED (test code = GLUBED) 85 MG/DL 70-110 N Performed by certified help desk operator at [facility] CBC W/AUTO [id number] 08:12:00* Test Item Value Reference Range Interpretation [...] REQUIRED (test code = MDIFF) BASIC METABOLIC [id number] 08:00:00* Test Item Value Reference Range Interpretation [...] code = CA) 9.2 mg/dL 8.0-10.5 N [id number] 20:23:00* Test Item Value Reference Range Interpretation Comments GLUBED (test code = GLUBED) 101 MG/DL 70-110 N Performed by certified help desk operator at [facility] BASIC METABOLIC [id number] 15:10:00* Test Item Value Reference Range Interpretation [...] CA) 9.3 mg/dL 8.0-10.5 N PROTEIN ELECTROPHORESIS [id number] 15:10:00* Test Item Value Reference Range Interpretation Comments TOTAL PROTEIN (test code = PROTE) 8.0 g/dL 6.0-8.5 ALBUMIN (test code = ALBE) 3.8 g/dL 2.9-4.4 [id number]-6-[id number] (test code = A1G) 0.5 g/dL 0.0-0.4 A [id number]-6-[id number] (test code = A2G) 1.1 g/dL 0.4-1.0 [...] monoclonal protein is not apparent.Performed At: [facility] Q[address]pdsb87[address] [place], [place] [id number] Galan MD Ph:[phone] At: DA [facility] Mqpkxr8235 [facility] [address] [place], [place] [id number] CN MD Ph:[phone] [id number] 15:10:00* Test Item Value Reference Range Interpretation Comments PHOSPHOROUS (test code = PHOS) 2.8 MG/DL 2.5-4.9 N LACTIC DEHYDROGENASE(LDH)2020-04-07 15:10:00* Test Item Value Reference Range Interpretation Comments LACTIC DEHYDROGENASE(LDH) (test code = LDH) 760 IUnits/L 87-241 H [id number] 15:10:00* Test Item Value Reference Range Interpretation Comments MAGNESIUM (test code = MAG) 2.30 mg/dL 1.8-2.4 N TOTAL IRON BINDING [id number] 15:10:00* Test Item Value Reference Range Interpretation Comments SERUM IRON (test code = IRON) 76 mcg/dL 35-150 N TOTAL IRON BINDING CAPACITY (test code = TIBC) 195 mcg/dL 260-445 L UIBC (test code = UIBC) 119 mcg/dL IRON SATURATION (test code = FESAT) 39.0 % 14-34 H VITAMIN [id number] 15:10:00* Test Item Value Reference Range Interpretation Comments VITAMIN B12 (test code = VITB12) 1389 pg/mL 193-986 H FOLIC [id number] 15:10:00* Test Item Value Reference Range Interpretation Comments FOLIC ACID (test code = FOL) 42.8 ng/mL 3.1-17.5 H LEUK/LYMPHOMA [id number] 15:10:00* Test Item Value Reference Range Interpretation Comments LEUK/LYMPHOMA PANEL (test code = LEULYM) [id number] 15:10:00* Test Item Value Reference Range Interpretation Comments FERRITIN (test code = JACKIE) 1421.4 ng/mL 23.9-336.2 H CBC W/AUTO [id number] 13:46:00* Test Item Value Reference Range Interpretation [...] reported result: NO Edited by: CONNORRE on 04/03/20:59049904/03/20 1759: MAN DIFF NEEDED previously reported as: NO PATHOLOGISTS [id number] 13:46:00* Test Item Value Reference Range Interpretation Comments PATHOLOGISTS FINDINGS (test code = PATH FIND) INTERPRETATION BY PATHOLOGIST: MELISSA ABEL M.D."LEUKOPENIA WITH OCCASIONAL ATYPICAL IMMATURE CELLS." WBC [id number] 13:46:00* Test Item Value Reference Range Interpretation [...] code = PLTMORPH) LARGE PLATELETS CBC W/AUTO [id number] 13:44:00* Test Item Value Reference Range Interpretation [...] reported result: NO Edited by: CONNORRE on 04/03/20:57438404/03/20 1759: MAN DIFF NEEDED previously reported as: NO PATHOLOGISTS [id number] 13:44:00* Test Item Value Reference Range Interpretation Comments PATHOLOGISTS FINDINGS (test code = PATH FIND) WBC [id number] 13:44:00* Test Item Value Reference Range Interpretation [...] MORPHOLOGY (test code = PLTMORPH) LARGE PLATELETS [id number] 12:21:00* Test Item Value Reference Range Interpretation Comments GLUBED (test code = GLUBED) 105 MG/DL 70-110 N Performed by certified help desk operator at [facility] CBC W/AUTO [id number] 10:12:00* Test Item Value Reference Range Interpretation [...] REQUIRED (test code = MDIFF) YES WBC [id number] 10:12:00* Test Item Value Reference Range Interpretation [...] code = PLTMORPH) LARGE PLATELETS CBC W/AUTO [id number] 10:10:00* Test Item Value Reference Range Interpretation [...] REQUIRED (test code = MDIFF) YES WBC [id number] 10:10:00* Test Item Value Reference Range Interpretation Comments ANISOCYTOSIS (test code = ANISO) PLATELET ESTIMATE (test code = PLTEST) THOUSAND ADEQUATE CBC W/AUTO [id number] 10:10:00* Test Item Value Reference Range Interpretation [...] REQUIRED (test code = MDIFF) YES WBC [id number] 10:10:00* Test Item Value Reference Range Interpretation Comments ANISOCYTOSIS (test code = ANISO) PLATELET ESTIMATE (test code = PLTEST) THOUSAND ADEQUATE [id number] 09:16:00* Test Item Value Reference Range Interpretation Comments GLUBED (test code = GLUBED) 67 MG/DL 70-110 L Performed by certified help desk operator at [facility] [id number] 09:16:00* Test Item Value Reference Range Interpretation Comments GLUBED (test code = GLUBED) 64 MG/DL 70-110 L Performed by certified help desk operator at [facility] [id number] 08:24:00* Test Item Value Reference Range Interpretation Comments GLUBED (test code = GLUBED) 83 MG/DL 70-110 N Performed by certified help desk operator at [facility] - XR CHEST 1 [id number] 07:58:00 FAX: Sarbjit Jimenez MD [phone] [place]: St: ADM FAX: Alex Chan DO [phone] FAX: Tre Villaseñor I [phone] Name: ALEX PETERS [facility] : 1935 Age/S: 85/M [address] [place] [address] Unit #: [id number] Loc: G.6605 [place] [address] Phys: Sarbjit Vera MD Acct: [id number] Dis Date: Status: ADM IN ONE #: [phone] Exam Date: 04/07/2020 0603 FAX #: [phone] Reason: Pneumonia EXAMS: CPT CODE: [id number] XR CHEST 1 V 65691 Chest single v iew 04/07/2020 HISTORY: Pneumonia, shortness of breath, cough Comparison is made to 04/03/2020 FINDINGS: Right lower lung atelectasis/infiltrate is decreased. Left midlung atelectasis is decrea sed. Cardiomegaly is stable. Aorta is unchanged. No interstitial edema is noted. IMPRESSION: 1. Decreased right lower lung ate lectasis/infiltrate. 2. Decreased left midlung atelectasis. 3. Resolution of previous interstitial edema. SL: [id number] at 0758 Reported and signed by: Manish Hastings M.D. CC: Sarbjit Vera MD; Alex Martinez DO; Tre Wang MD Technologist: RT Ivan(Rena)(M) Trnscrd Date/Time/By: 04/07/2020 (0758) : By: milena BERNALBJM4 Orig Print D/T: S: 04/07/2020 (0801) P AGE 1 Signed Report CBC W/AUTO [id number] 07:54:00* Test Item Value Reference Range Interpretation [...] REQUIRED (test code = MDIFF) BASIC METABOLIC [id number] 07:44:00* Test Item Value Reference Range Interpretation [...] = CA) 9.3 mg/dL 8.0-10.5 N VANCOMYCIN [id number] 06:58:00* Test Item Value Reference Range Interpretation Comments VANCOMYCIN TROUGH (test code = VANCT) 12.0 mcg/mL 10.0-20.0 N 10-15 mcg/mL - Cellulitis, Urinary Tract Infection. 15-20 mcg/mL - Bacteremia, Infective Endocarditis, Meningitis, Osteomyelitis, Pneumonia, Severe Skin/Soft- Tissue Infection, Spinal Abscess. COMMENTS: RN: draw & send vanco level on time at 05:30 on Friday 04/06 CBC W/AUTO [id number] 23:03:00* Test Item Value Reference Range Interpretation [...] REQUIRED (test code = MDIFF) YES WBC [id number] 23:03:00* Test Item Value Reference Range Interpretation [...] GIANT PLATELETS LARGE PLTS SEEN CBC W/AUTO [id number] 23:00:00* Test Item Value Reference Range Interpretation [...] REQUIRED (test code = MDIFF) YES WBC [id number] 23:00:00* Test Item Value Reference Range Interpretation Comments ANISOCYTOSIS (test code = ANISO) PLATELET ESTIMATE (test code = PLTEST) THOUSAND ADEQUATE CBC W/AUTO [id number] 23:00:00* Test Item Value Reference Range Interpretation [...] REQUIRED (test code = MDIFF) YES WBC [id number] 23:00:00* Test Item Value Reference Range Interpretation Comments ANISOCYTOSIS (test code = ANISO) PLATELET ESTIMATE (test code = PLTEST) THOUSAND ADEQUATE BASIC METABOLIC [id number] 22:53:00* Test Item Value Reference Range Interpretation [...] = CA) 9.3 mg/dL 8.0-10.5 N COMMENTS: [id number] 22:53:00* Test Item Value Reference Range Interpretation Comments PHOSPHOROUS (test code = PHOS) 2.3 MG/DL 2.5-4.9 L COMMENTS: [id number] 22:53:00* Test Item Value Reference Range Interpretation Comments MAGNESIUM (test code = MAG) 2.50 mg/dL 1.8-2.4 H COMMENTS: [id number] 22:53:00* Test Item Value Reference Range Interpretation Comments TROPONIN-I (test code = TROPI) < 0.015 ng/mL 0.000-0.045 N Negative: <= 0.045 Positive: >= 0.046 Correlation with serial results, other cardiac markers andclinical findings is necessary to determine the clinicalsignificance of this result. Results using different methodologies should not be comparedto one another as quantitative results may vary by method. COMMENTS: VTACHYCARDIABASIC METABOLIC [id number] 22:50:00* Test Item Value Reference Range Interpretation [...] (test code = CA) mg/dL 8.0-10.5 COMMENTS: [id number] 22:50:00* Test Item Value Reference Range Interpretation Comments PHOSPHOROUS (test code = PHOS) MG/DL 2.5-4.9 COMMENTS: [id number] 22:50:00* Test Item Value Reference Range Interpretation Comments MAGNESIUM (test code = MAG) mg/dL 1.8-2.4 COMMENTS: [id number] 22:50:00* Test Item Value Reference Range Interpretation Comments TROPONIN-I (test code = TROPI) < 0.015 ng/mL 0.000-0.045 N Negative: <= 0.045 Positive: >= 0.046 Correlation with serial results, other cardiac markers andclinical findings is necessary to determine the clinicalsignificance of this result. Results using different methodologies should not be comparedto one another as quantitative results may vary by method. COMMENTS: VTACHYCARDIACBC W/AUTO [id number] 22:35:00* Test Item Value Reference Range Interpretation [...] MANUAL DIFF REQUIRED (test code = MDIFF) [id number] 20:41:00* Test Item Value Reference Range Interpretation Comments GLUBED (test code = GLUBED) 98 MG/DL 70-110 N Performed by certified help desk operator at [facility] [id number] 17:54:00* Test Item Value Reference Range Interpretation Comments GLUBED (test code = GLUBED) 89 MG/DL 70-110 N Performed by certified help desk operator at [facility] [id number] 08:12:00* Test Item Value Reference Range Interpretation Comments GLUBED (test code = GLUBED) 82 MG/DL 70-110 N Performed by certified help desk operator at [facility] COMPREHENSIVE METABOLIC [id number] 04:27:00* Test Item Value Reference Range Interpretation [...] ALKP) 88 IUnit/L 20-125 N CBC W/AUTO [id number] 04:27:00* Test Item Value Reference Range Interpretation [...] REQUIRED (test code = MDIFF) YES WBC [id number] 04:27:00* Test Item Value Reference Range Interpretation [...] code = PLTMORPH) LARGE PLATELETS CBC W/AUTO [id number] 04:05:00* Test Item Value Reference Range Interpretation [...] REQUIRED (test code = MDIFF) YES WBC [id number] 04:05:00* Test Item Value Reference Range Interpretation Comments ANISOCYTOSIS (test code = ANISO) PLATELET ESTIMATE (test code = PLTEST) THOUSAND ADEQUATE CBC W/AUTO [id number] 04:05:00* Test Item Value Reference Range Interpretation [...] REQUIRED (test code = MDIFF) YES WBC [id number] 04:05:00* Test Item Value Reference Range Interpretation Comments ANISOCYTOSIS (test code = ANISO) PLATELET ESTIMATE (test code = PLTEST) THOUSAND ADEQUATE UR OSMOLALITY [id number] 23:29:00* Test Item Value Reference Range Interpretation Comments UR OSMOLALITY RANDOM (test code = OSMOU) 398 MOS/KG 300-1000 N UR SODIUM [id number] 23:29:00* Test Item Value Reference Range Interpretation Comments UR SODIUM RANDOM (test code = AISLINN) 56 MEQ/L The Reference Range and Method Performance specificationshave not been established for this fluid. The test resultshould be correlated into the clinical context forinterpretation. UR PROTEIN [id number] 23:29:00* Test Item Value Reference Range Interpretation Comments UR PROTEIN RANDOM (test code = PROTU) 115 mg/dL Note: Change in UNITS of MEASUREMENT. The Reference Range and Method Performance specificationshave not been established for this fluid. The test resultshould be correlated into the clinical context forinterpretation. UR CREATININE [id number] 23:29:00* Test Item Value Reference Range Interpretation Comments UR CREATININE RANDOM (test code = CREATU) 54.5 mg/dL The Reference Range and Method Performance specificationshave not been established for this fluid. The test resultshould be correlated into the clinical context forinterpretation. UR OSMOLALITY [id number] 23:29:00* Test Item Value Reference Range Interpretation Comments UR OSMOLALITY RANDOM (test code = OSMOU) 398 MOS/KG 300-1000 [id number] 20:18:00* Test Item Value Reference Range Interpretation Comments GLUBED (test code = GLUBED) 111 MG/DL 70-110 H Performed by certified help desk operator at [facility] [id number] 17:28:00* Test Item Value Reference Range Interpretation Comments GLUBED (test code = GLUBED) 98 MG/DL 70-110 N Performed by certified help desk operator at [facility] [id number] 12:36:00* Test Item Value Reference Range Interpretation Comments GLUBED (test code = GLUBED) 117 MG/DL 70-110 H Performed by certified help desk operator at [facility] B-TYPE NATRIURETIC [id number] 11:41:00* Test Item Value Reference Range Interpretation Comments B-TYPE NATRIURETIC PEPTIDE (test code = BNP) 1287.9 PG/ML 0-100 H [id number] 08:07:00* Test Item Value Reference Range Interpretation Comments GLUBED (test code = GLUBED) 84 MG/DL 70-110 N Performed by certified help desk operator at [facility] BASIC METABOLIC [id number] 06:02:00* Test Item Value Reference Range Interpretation [...] CA) 9.3 mg/dL 8.0-10.5 N PROTEIN ELECTROPHORESIS [id number] 06:02:00* Test Item Value Reference Range Interpretation Comments TOTAL PROTEIN (test code = PROTE) ALBUMIN (test code = ALBE) XMJKS-0-XEOFETIC (test code = A1G) [id number]-[id number] (test code = A2G) BETA GLOBULIN (test code = BG) GAMMA GLOBULIN (test code = GG) M-SPIKE,SERUM (test code = MSPIKES) GLOBULIN ELECT (test code = GLOBE) ALBUMIN/GLOBULIN RATIO (test code = AGE) PROT.ELECTROPH.INTERPRETATION (test code = ELEINT) [id number] 06:02:00* Test Item Value Reference Range Interpretation Comments PHOSPHOROUS (test code = PHOS) 2.8 MG/DL 2.5-4.9 N LACTIC DEHYDROGENASE(LDH)2020-04-05 06:02:00* Test Item Value Reference Range Interpretation Comments LACTIC DEHYDROGENASE(LDH) (test code = LDH) 760 IUnits/L 87-241 H [id number] 06:02:00* Test Item Value Reference Range Interpretation Comments MAGNESIUM (test code = MAG) 2.30 mg/dL 1.8-2.4 N TOTAL IRON BINDING [id number] 06:02:00* Test Item Value Reference Range Interpretation Comments SERUM IRON (test code = IRON) 76 mcg/dL 35-150 N TOTAL IRON BINDING CAPACITY (test code = TIBC) 195 mcg/dL 260-445 L UIBC (test code = UIBC) 119 mcg/dL IRON SATURATION (test code = FESAT) 39.0 % 14-34 H VITAMIN [id number] 06:02:00* Test Item Value Reference Range Interpretation Comments VITAMIN B12 (test code = VITB12) 1389 pg/mL 193-986 H FOLIC [id number] 06:02:00* Test Item Value Reference Range Interpretation Comments FOLIC ACID (test code = FOL) 42.8 ng/mL 3.1-17.5 H LEUK/LYMPHOMA [id number] 06:02:00* Test Item Value Reference Range Interpretation Comments LEUK/LYMPHOMA PANEL (test code = LEULYM) [id number] 06:02:00* Test Item Value Reference Range Interpretation Comments FERRITIN (test code = JACKEI) 1421.4 ng/mL 23.9-336.2 H BASIC METABOLIC [id number] 05:26:00* Test Item Value Reference Range Interpretation [...] CA) 9.3 mg/dL 8.0-10.5 N PROTEIN ELECTROPHORESIS [id number] 05:26:00* Test Item Value Reference Range Interpretation Comments TOTAL PROTEIN (test code = PROTE) ALBUMIN (test code = ALBE) ZXEQK-3-USNOQMRL (test code = A1G) PSQHZ-6-PDHPVMJA (test code = A2G) BETA GLOBULIN (test code = BG) GAMMA GLOBULIN (test code = GG) M-SPIKE,SERUM (test code = MSPIKES) GLOBULIN ELECT (test code = GLOBE) ALBUMIN/GLOBULIN RATIO (test code = AGE) PROT.ELECTROPH.INTERPRETATION (test code = ELEINT) [id number] 05:26:00* Test Item Value Reference Range Interpretation Comments PHOSPHOROUS (test code = PHOS) 2.8 MG/DL 2.5-4.9 N LACTIC DEHYDROGENASE(LDH)2020-04-05 05:26:00* Test Item Value Reference Range Interpretation Comments LACTIC DEHYDROGENASE(LDH) (test code = LDH) 760 IUnits/L 87-241 H [id number] 05:26:00* Test Item Value Reference Range Interpretation Comments MAGNESIUM (test code = MAG) 2.30 mg/dL 1.8-2.4 N TOTAL IRON BINDING [id number] 05:26:00* Test Item Value Reference Range Interpretation Comments SERUM IRON (test code = IRON) 76 mcg/dL 35-150 N TOTAL IRON BINDING CAPACITY (test code = TIBC) 195 mcg/dL 260-445 L UIBC (test code = UIBC) 119 mcg/dL IRON SATURATION (test code = FESAT) 39.0 % 14-34 H VITAMIN [id number] 05:26:00* Test Item Value Reference Range Interpretation Comments VITAMIN B12 (test code = VITB12) 1389 pg/mL 193-986 H FOLIC [id number] 05:26:00* Test Item Value Reference Range Interpretation Comments FOLIC ACID (test code = FOL) ng/mL 3.1-17.5 LEUK/LYMPHOMA [id number] 05:26:00* Test Item Value Reference Range Interpretation Comments LEUK/LYMPHOMA PANEL (test code = LEULYM) [id number] 05:26:00* Test Item Value Reference Range Interpretation Comments FERRITIN (test code = JACKIE) 1421.4 ng/mL 23.9-336.2 H CBC W/AUTO [id number] 05:12:00* Test Item Value Reference Range Interpretation [...] REQUIRED (test code = MDIFF) YES WBC [id number] 05:12:00* Test Item Value Reference Range Interpretation [...] (test code = PLTMORPH) GIANT PLATELETS RETICULOCYTE [id number] 05:12:00* Test Item Value Reference Range Interpretation Comments RETIC COUNT (AUTOMATED) (test code = RETICA) 1.4 % 0.3-2.3 N RETIC COUNT ABSOLUTE (test code = RET#) 0.040 x10 6/uL 0.016-0.095 N [id number] 05:03:00* Test Item Value Reference Range Interpretation Comments VANCOMYCIN (test code = VANCO) 8.2 mcg/mL CBC W/AUTO [id number] 04:55:00* Test Item Value Reference Range Interpretation [...] REQUIRED (test code = MDIFF) YES WBC [id number] 04:55:00* Test Item Value Reference Range Interpretation Comments ANISOCYTOSIS (test code = ANISO) PLATELET ESTIMATE (test code = PLTEST) THOUSAND ADEQUATE RETICULOCYTE [id number] 04:55:00* Test Item Value Reference Range Interpretation Comments RETIC COUNT (AUTOMATED) (test code = RETICA) 1.4 % 0.3-2.3 N RETIC COUNT ABSOLUTE (test code = RET#) 0.040 x10 6/uL 0.016-0.095 N CBC W/AUTO [id number] 04:55:00* Test Item Value Reference Range Interpretation [...] REQUIRED (test code = MDIFF) YES WBC [id number] 04:55:00* Test Item Value Reference Range Interpretation Comments ANISOCYTOSIS (test code = ANISO) PLATELET ESTIMATE (test code = PLTEST) THOUSAND ADEQUATE RETICULOCYTE [id number] 04:55:00* Test Item Value Reference Range Interpretation Comments RETIC COUNT (AUTOMATED) (test code = RETICA) 1.4 % 0.3-2.3 N RETIC COUNT ABSOLUTE (test code = RET#) 0.040 x10 6/uL 0.016-0.095 N CBC W/AUTO [id number] 04:41:00* Test Item Value Reference Range Interpretation [...] DIFF REQUIRED (test code = MDIFF) RETICULOCYTE [id number] 04:41:00* Test Item Value Reference Range Interpretation Comments RETIC COUNT (AUTOMATED) (test code = RETICA) 1.4 % 0.3-2.3 N RETIC COUNT ABSOLUTE (test code = RET#) 0.040 x10 6/uL 0.016-0.095 N [id number] 21:47:00* Test Item Value Reference Range Interpretation Comments GLUBED (test code = GLUBED) 108 MG/DL 70-110 N Performed by certified help desk operator at [facility] [id number] 21:47:00* Test Item Value Reference Range Interpretation Comments GLUBED (test code = GLUBED) 160 MG/DL 70-110 H Performed by certified help desk operator at [facility] UR SODIUM [id number] 20:56:00* Test Item Value Reference Range Interpretation Comments UR SODIUM RANDOM (test code = AISLINN) 56 MEQ/L The Reference Range and Method Performance specificationshave not been established for this fluid. The test resultshould be correlated into the clinical context forinterpretation. UR PROTEIN [id number] 20:56:00* Test Item Value Reference Range Interpretation Comments UR PROTEIN RANDOM (test code = PROTU) 115 mg/dL Note: Change in UNITS of MEASUREMENT. The Reference Range and Method Performance specificationshave not been established for this fluid. The test resultshould be correlated into the clinical context forinterpretation. UR CREATININE [id number] 20:56:00* Test Item Value Reference Range Interpretation Comments UR CREATININE RANDOM (test code = CREATU) 54.5 mg/dL The Reference Range and Method Performance specificationshave not been established for this fluid. The test resultshould be correlated into the clinical context forinterpretation. UR OSMOLALITY [id number] 20:56:00* Test Item Value Reference Range Interpretation Comments UR OSMOLALITY RANDOM (test code = OSMOU) [id number] 20:55:00* Test Item Value Reference Range Interpretation Comments GLUBED (test code = GLUBED) 133 MG/DL 70-110 H Performed by certified help desk operator at [facility] - US RETROPERITONEAL [id number] 10:32:00 Name: ALEX PETERS [facility] : 1935 Age/S: 85 / M [address] [place] [address] Blvd Unit #: [id number] Loc: [place] [address] Phys: Mamadou Ordonez MD Acct: [id number] Dis Date: Status: ADM IN PHONE #: [phone] Exam Date: 04/04/2020 1024 FAX #: [phone] Reason: febrile neutrapenia, r/o pneumonia EXAMS: CPT CODE: [id number] US RETROPERITONEAL COM [id number] Clinical Indication: Febrile neutropenia; Comparison: None TECHNIQUE: [...] etiologies ca nnot be definitively excluded. SL: [id number] at 1032 Reported and signed by: Servando Avila D.O. PAGE 1 Signed Report (CONTINUED) Name: ALEX PETERS [facility] : 1935 Age/S: 85 / M [address] [place] [address] Blvd Unit #: [id number] Loc: [place] [address] Phys: Mamadou Ordonez MD Acct: [id number] Dis Date: S tatus: ADM IN PHONE #: [phone] Exam Da te: 04/04/2020 1024 FAX #: [phone] Reason: febril e neutrapenia, r/o pneumonia EXAMS: CPT CODE: [id number] [facility] [address] <Continued> CC: Mamadou Ordonez MD; Alex Martinez DO; Jarred Tan MD Technologist: Palma Dominguez Trnscb Date/Time: 04/04/2020 (1032) [id number].[email or web address] Orig Print D/T: S: 04/04/2020 (1035) Probe: PAGE 2 Signed Report CBC W/AUTO [id number] 10:29:00* Test Item Value Reference Range Interpretation [...] REQUIRED (test code = MDIFF) YES WBC [id number] 10:29:00* Test Item Value Reference Range Interpretation [...] PLATELETS AND FEW GIANT PLTS CBC W/AUTO [id number] 10:28:00* Test Item Value Reference Range Interpretation [...] REQUIRED (test code = MDIFF) YES WBC [id number] 10:28:00* Test Item Value Reference Range Interpretation Comments ANISOCYTOSIS (test code = ANISO) PLATELET ESTIMATE (test code = PLTEST) THOUSAND ADEQUATE CBC W/AUTO [id number] 10:28:00* Test Item Value Reference Range Interpretation [...] REQUIRED (test code = MDIFF) YES WBC [id number] 10:28:00* Test Item Value Reference Range Interpretation Comments ANISOCYTOSIS (test code = ANISO) PLATELET ESTIMATE (test code = PLTEST) THOUSAND ADEQUATE COMPREHENSIVE METABOLIC [id number] 08:37:00* Test Item Value Reference Range Interpretation [...] ALKP) 83 IUnit/L 20-125 N CBC W/AUTO [id number] 08:26:00* Test Item Value Reference Range Interpretation [...] MANUAL DIFF REQUIRED (test code = MDIFF) [id number] 08:07:00* Test Item Value Reference Range Interpretation Comments GLUBED (test code = GLUBED) 110 MG/DL 70-110 N Performed by certified help desk operator at [facility] UA RFLX MICR CULT IF [id number] 23:59:00* Test Item Value Reference Range Interpretation [...] FSpecimen Description: CLEAN CATCH- CT CHEST W/O [id number] 23:05:00 Name: PETERSALEX BULL [facility] : 1935 Age/S: 85 / M [address] [place], [place] [address] Unit #: [id number] Loc: [place] [address] Phys: Mamadou Ordonez MD Acct: [id number] Dis Date: Status: ADM IN PHONE #: [phone] Exam Date: 04/03/20202244 FAX #: [phone] Reason: febrile neutrapenia, r/o pneumonia EXAMS: CPT CODE: [id number] CT CHEST W/O CONTRAST 31870 STUDY: - CT CHEST W/O CONTRAST 04/03/2020 9:44 PM Ordering Physician: Mamadou Ordonez MD Patient Name: ALEX PETERS MR: [id number] : 1935; Age: 85 years y/o Male [...] 1 Signed Report (CONTINUED) Name: ALEX PETERS [facility] Zulma Gaspar : 1935 Age/S: 85 / M [address] [place], [place] [address] Unit #: [id number] Loc: [place] [address] Phys: Mamadou Ordonez MD Acct: [id number] Dis Date: St atus: ADM IN PHONE #: [phone] Exam Saqib e: 04/03/20202244 FAX #: [phone] Reason: febrile neutrapenia, r/o pneumonia EXAMS: CPT CODE: [id number] CT CHEST W/O CONTRAST 62421 <Continued> VISUALIZED UPPER ABDOMEN: Cholecystectomy with mild [...] 2 Signed Report (CONTINUED) Name: ALEX PETERS [facility] : 1935 Age/S: 85 / M [address] [place] [address] Unit #: [id number] Loc: [place] [address] Phys: Mamadou Ordonez MD Acct: [id number] Dis Date: Status: ADM IN PHONE #: [phone] Exam Date: 04/03/20202244 FAX #: [phone] Reason: febrile neutrapenia, r/o pneumonia EXAMS: CPT CODE: [id number] CT CHEST W/O CONTRAST 76717 <Continued> CC: Mamadou Ordonez MD; Alex Martinez DO; Jarred Tan MD Technologist:RT Fermín(R)(CT) CTDI: DLP: Trnscb Date/Time: 04/03/2020 (2304) [email or web address] Orig Print D/T: S: 04/03/2020 (2307) PAGE 3 Signed Report LACTIC [id number] 20:30:00* Test Item Value Reference Range Interpretation Comments LACTIC ACID (test code = LACT) 1.2 mmol/L 0.4-1.9 N Coronavirus 2019 nCoV Gybrzrg0782-48-85 20:23:00* Test Item Value Reference Range Interpretation Comments Coronavirus 2019 nCoV Bedside (test code = [id number]) Negative Negative Negative results should be treated as presumptive and, ifinconsistent with clinical signs and symptoms or necessaryfor patient management, should be tested with an alternativemolecular assay. Negative results do not preclude MXQL-VsG-7jjwibbnhl and should not be used as the sole basis forpatient management decisions. Negative results should beconsidered in the context of a patient's recent exposures,history, presence of clinical signs and symptoms consistentwith COVID-19. - XR CHEST 1 [id number] 18:23:00 FAX: Bhumi MartinezAlex Brittany PLASENCIA [phone] [place]: St: PRE FAX: Jarred Tan MD Name: ALEX PETERS [facility] : 1935 Age/S: 85/M [address] [place] [address] Unit #: [id number] Loc: [place] [address] Phys: Jarred Tan MD Acct: [id number] Dis Date: Status: PRE ER PHONE #: [phone] Exam Date: 04/03/2020 180 FAX #: [phone] Reason: fever, cough EXAMS: CPT CODE: [id number] XR CHEST 1 V 08574 Study: - XR CHEST 1 V 04/03/2020 5:04 PM Patient Name: ALEX PETERS MR: [id number] : 1935; Age: 85 years y/o Male [...] RT(R) Trnscrd Date/Time/By: 04/03/2020 (1822) : By: [email or web address] Orig Print D/T: S: 04/03/2020 (1826) PAGE 1 Signed Report CBC W/AUTO [id number] 18:10:00* Test Item Value Reference Range Interpretation [...] YES Previously reported result: NO Edited by: G.LAB.RE on 04/03/20:42862504/03/20 1759: MAN DIFF NEEDED previously reported as: NO WBC [id number] 18:10:00* Test Item Value Reference Range Interpretation [...] code = PLTMORPH) LARGE PLATELETS BASIC METABOLIC [id number] 18:02:00* Test Item Value Reference Range Interpretation [...] CA) 9.4 mg/dL 8.0-10.5 N HEPATIC FUNCTION [id number] 18:02:00* Test Item Value Reference Range Interpretation [...] 91 IUnit/L 20-125 N TSH REFLEX TO [id number] 18:02:00* Test Item Value Reference Range Interpretation Comments TSH REFLEX TO FT4 (test code = TSHREFLEX) 3.01 IU/mL 0.42-5.47 N [id number] 18:02:00* Test Item Value Reference Range Interpretation Comments TROPONIN-I (test code = TROPI) < 0.015 ng/mL 0.000-0.045 N Negative: <= 0.045 Positive: >= 0.046 Correlation with serial results, other cardiac markers andclinical findings is necessary to determine the clinicalsignificance of this result. Results using different methodologies should not be comparedto one another as quantitative results may vary by method. CBC W/AUTO [id number] 18:00:00* Test Item Value Reference Range Interpretation [...] reported result: NO Edited by: CONNORRE on 04/03/20: 1759: MAN DIFF NEEDED previously reported as: NO WBC [id number] 18:00:00* Test Item Value Reference Range Interpretation Comments ANISOCYTOSIS (test code = ANISO) PLATELET ESTIMATE (test code = PLTEST) THOUSAND ADEQUATE CBC W/AUTO [id number] 18:00:00* Test Item Value Reference Range Interpretation [...] reported result: NO Edited by: CONNORRE on 04/03/20:9297459: MAN DIFF NEEDED previously reported as: NO WBC [id number] 18:00:00* Test Item Value Reference Range Interpretation Comments ANISOCYTOSIS (test code = ANISO) PLATELET ESTIMATE (test code = PLTEST) THOUSAND ADEQUATE CBC W/AUTO [id number] 17:58:00* Test Item Value Reference Range Interpretation [...] (test code = MDIFF) NO BASIC METABOLIC [id number] 17:56:00* Test Item Value Reference Range Interpretation [...] CA) 9.4 mg/dL 8.0-10.5 N HEPATIC FUNCTION [id number] 17:56:00* Test Item Value Reference Range Interpretation [...] 91 IUnit/L 20-125 N TSH REFLEX TO [id number] 17:56:00* Test Item Value Reference Range Interpretation Comments TSH REFLEX TO FT4 (test code = TSHREFLEX) IU/mL 0.42-5.47 [id number]-[id number] 17:56:00* Test Item Value Reference Range Interpretation Comments TROPONIN-I (test code = TROPI) < 0.015 ng/mL 0.000-0.045 N Negative: <= 0.045 Positive: >= 0.046 Correlation with serial results, other cardiac markers andclinical findings is necessary to determine the clinicalsignificance of this result. Results using different methodologies should not be comparedto one another as quantitative results may vary by method. CBC W/AUTO [id number] 17:36:00* Test Item Value Reference Range Interpretation [...] code = MDIFF) CXR 2 VIEW - [id number] 18:56:00 [facility] [address] [address] Patient Name: ALEX PETERS MR #: [id number] : 1935 Age/Sex: 84/M Req #: [id number] Adm Physician: Ordered by: ML PEREZ MD Report #: [id number] Location: [facility] Room/Bed: Procedure: [id number] HOP D/CXR 2 VIEW - HOPD Exam [...] 10/27/191858 COPY TO: ML PEREZ MD Bedside Chkudhl6905-00-18 11:49:00* Test Item Value Reference Range Interpretation Comments Bedside Glucose (test code = 29651-9) 86 70-120 Meter ID: [id number] [facility] 2019-09-27 11:49:00* Test Item Value Reference Range Interpretation Comments Bedside Glucose (test code = 08496-9) 86 70-120 Meter ID: [id number]'s Hospital of San AntonioDifferential Total Cells Dhpojmw2595-17-40 07:32:00* Test Item Value Reference Range Interpretation Comments Differential Total Cells Counted (test code = Differen tial Total Cells Counted) 100 [facility] AntonioNeutrophils % (Manual)2019-09-27 07:32:00 * Test Item Value Reference Range Interpretation Comments Neutrophils % (Manual) (test code = 78489-6) 66 40-74 [facility] AntonioLymphocytes % (Manual)2019-09-27 07:32:00 * Test Item Value Reference Range Interpretation Comments Lymphocytes % (Manual) (test code = 737-7) 31 19-48 [facility] AntonioMonocytes % (Manual)2019-09-27 07:32:00* Test Item Value Reference Range Interpretation Comments Monocytes % (Manual) (test code = 744-3) 3 3.4-9.0 L [facility] AntonioPlatelet Uaefajqj7507-83-44 07:32:00* Test Item Value Reference Range Interpretation Comments Platelet Estimate (test code = 30783-3) MARKEDLY INCREASED [facility] AntonioPlatelet Morphology Puefpfj5551-29-54 07:32:00* Test Item Value Reference Range Interpretation Comments Platelet Morphology Comment (test code = 07829-6) NORMAL [facility] AntonioRed Cell Morphology Jiulqxh9026-01-47 07:32:00* Test Item Value Reference Range Interpretation Comments Red Cell Morphology Comment (test code = 6742-1) NORMAL [facility] AntonioDifferential Total Cells Counted 2019-09-27 07:32:00* Test Item Value Reference Range Interpretation Comments Differential Total Cells Counted (test code = Differen tial Total Cells Counted) 100 [facility] AntonioNeutrophils % (Manual)2019-09-27 07:32:00 * Test Item Value Reference Range Interpretation Comments Neutrophils % (Manual) (test code = 23140-9) 66 40-74 [facility] AntonioLymphocytes % (Manual)2019-09-27 07:32:00 * Test Item Value Reference Range Interpretation Comments Lymphocytes % (Manual) (test code = 737-7) 31 19-48 [facility] AntonioMonocytes % (Manual)2019-09-27 07:32:00* Test Item Value Reference Range Interpretation Comments Monocytes % (Manual) (test code = 744-3) 3 3.4-9.0 L [facility] AntonioPlatelet Zoihmzkl2164-57-20 07:32:00* Test Item Value Reference Range Interpretation Comments Platelet Estimate (test code = 75583-0) MARKEDLY INCREASED [facility] AntonioPlatelet Morphology Znpqjvd8737-72-37 07:32:00* Test Item Value Reference Range Interpretation Comments Platelet Morphology Comment (test code = 09427-8) NORMAL [facility] AntonioRed Cell Morphology Nnaqigt3009-94-90 07:32:00* Test Item Value Reference Range Interpretation Comments Red Cell Morphology Comment (test code = 6742-1) NORMAL [facility] Hospitalodium Lgsmu3783-85-41 06:49:00* Test Item Value Reference Range Interpretation Comments Sodium Level (test code = 2951-2) 140 136-145 [facility] AntonioPotassium Hsgfb2677-87-85 06:49:00* Test Item Value Reference Range Interpretation Comments Potassium Level (test code = 2823-3) 3.6 3.5-5.1 [facility] AntonioChloride Kymda9570-40-68 06:49:00* Test Item Value Reference Range Interpretation Comments Chloride Level (test code = 2075-0) 106 98-107 [facility] AntonioCarbon Dioxide Knpaj1367-65-61 06:49:00* Test Item Value Reference Range Interpretation Comments Carbon Dioxide Level (test code = 2028-9) 21 22-29 L [facility] AntonioAnion Jmj1139-39-17 06:49:00* Test Item Value Reference Range Interpretation Comments Anion Gap (test code = 14933-3) 16.6 8-16 H [facility] AntonioBlood Urea Oeywbyze0582-56-87 06:49:00* Test Item Value Reference Range Interpretation Comments Blood Urea Nitrogen (test code = 3094-0) 22 7-26 [facility] AntonioCreatinine2020-01-16 06:49:00* Test Item Value Reference Range Interpretation Comments Creatinine (test code = 2160-0) 1.11 0.72-1.25 [facility] AntonioBUN/Creatinine Ptxae0485-19-38 06:49:00* Test Item Value Reference Range Interpretation Comments BUN/Creatinine Ratio (test code = 3097-3) 20 6-25 [facility] San AntonioEstimat Glomerular Filtration Rate 2019-09-27 06:49:00* Test Item Value Reference Range Interpretation Comments Estimat Glomerular Filtration Rate (test code = 221938380) > 60 >60 Ranges were taken from the National Kidney Disease Education Program and the [facility] literature.Reference ranges:60 or greater: Syloum29-00 ( for 3 consecutive months): Chronic kidney disease 15 or less: Kidney failureChildren's Hospital of San AntonioGlucose Tuluc7425-54-17 06:49:00* Test Item Value Reference Range Interpretation Comments Glucose Level (test code = AGY9235) 82 74-118 [facility] AntonioCalcium Byrjl2665-43-92 06:49:00* Test Item Value Reference Range Interpretation Comments Calcium Level (test code = 52694-3) 9.7 8.4-10.2 [facility] AntonioTotal Edlyconjn2323-22-94 06:49:00* Test Item Value Reference Range Interpretation Comments Total Bilirubin (test code = 1975-2) 0.9 0.2-1.2 [facility] AntonioAspartate Amino Transf (AST/SGOT) 2019-09-27 06:49:00* Test Item Value Reference Range Interpretation Comments Aspartate Amino Transf (AST/SGOT) (test code = Aspartate Amino Transf (AST/SGOT)) 46 5-34 H [facility] AntonioAlanine Aminotransferase (ALT/SGPT) 2019-09-27 06:49:00* Test Item Value Reference Range Interpretation Comments Alanine Aminotransferase (ALT/SGPT) (test code = 1742-6) 19 0-55 [facility] AntonioTotal Zuaizqq3826-91-75 06:49:00* Test Item Value Reference Range Interpretation Comments Total Protein (test code = 2885-2) 6.7 6.5-8.1 [facility] AntonioAlbumin2020-01-16 06:49:00* Test Item Value Reference Range Interpretation Comments Albumin (test code = 1751-7) 3.8 3.5-5.0 [facility] AntonioGlobulin2020-01-16 06:49:00* Test Item Value Reference Range Interpretation Comments Globulin (test code = 66269-8) 2.9 2.3-3.5 [facility] AntonioAlbumin/Globulin Gudxy9209-48-02 06:49:00 * Test Item Value Reference Range Interpretation Comments Albumin/Globulin Ratio (test code = 1759-0) 1.3 0.8-2.0 [facility] AntonioAlkaline Trpdupoyslc4823-40-45 06:49:00* Test Item Value Reference Range Interpretation Comments Alkaline Phosphatase (test code = 6768-6) 75 40-150 [facility] Hospitalodium Xxfiv8581-75-95 06:49:00* Test Item Value Reference Range Interpretation Comments Sodium Level (test code = 2951-2) 140 136-145 [facility] AntonioPotassium Bmvoc1876-20-10 06:49:00* Test Item Value Reference Range Interpretation Comments Potassium Level (test code = 2823-3) 3.6 3.5-5.1 [facility] AntonioChloride Zeizc3136-59-95 06:49:00* Test Item Value Reference Range Interpretation Comments Chloride Level (test code = 2075-0) 106 98-107 [facility] San AntonioCarbon Dioxide Fleep0987-16-35 06:49:00* Test Item Value Reference Range Interpretation Comments Carbon Dioxide Level (test code = 2028-9) 21 22-29 L [facility] AntonioAnion Nvh7462-90-73 06:49:00* Test Item Value Reference Range Interpretation Comments Anion Gap (test code = 64331-7) 16.6 8-16 H [facility] AntonioBlood Urea Spbqmnus7674-87-67 06:49:00* Test Item Value Reference Range Interpretation Comments Blood Urea Nitrogen (test code = 3094-0) 22 7-26 [facility] AntonioCreatinine2020-01-16 06:49:00* Test Item Value Reference Range Interpretation Comments Creatinine (test code = 2160-0) 1.11 0.72-1.25 [facility] AntonioBUN/Creatinine Ozydf5706-35-23 06:49:00* Test Item Value Reference Range Interpretation Comments BUN/Creatinine Ratio (test code = 3097-3) 20 6-25 [facility] San AntonioEstimat Glomerular Filtration Rate 2019-09-27 06:49:00* Test Item Value Reference Range Interpretation Comments Estimat Glomerular Filtration Rate (test code = 492368060) > 60 >60 Ranges were taken from the National Kidney Disease Education Program and the [facility] literature.Reference ranges:60 or greater: Lsdyys18-31 ( for 3 consecutive months): Chronic kidney disease 15 or less: Kidney failureChildren's Hospital of San AntonioGlucose Tbdcr9348-00-17 06:49:00* Test Item Value Reference Range Interpretation Comments Glucose Level (test code = TDN2218) 82 74-118 [facility] AntonioCalcium Iwbgt7954-69-92 06:49:00* Test Item Value Reference Range Interpretation Comments Calcium Level (test code = 45299-2) 9.7 8.4-10.2 [facility] AntonioTotal Omtxacvde8131-48-33 06:49:00* Test Item Value Reference Range Interpretation Comments Total Bilirubin (test code = 1975-2) 0.9 0.2-1.2 [facility] San AntonioAspartate Amino Transf (AST/SGOT) 2019-09-27 06:49:00* Test Item Value Reference Range Interpretation Comments Aspartate Amino Transf (AST/SGOT) (test code = Aspartate Amino Transf (AST/SGOT)) 46 5-34 H [facility] AntonioAlanine Aminotransferase (ALT/SGPT) 2019-09-27 06:49:00* Test Item Value Reference Range Interpretation Comments Alanine Aminotransferase (ALT/SGPT) (test code = 1742-6) 19 0-55 [facility] San AntonioTotal Zrfsaxq1935 06:49:00* Test Item Value Reference Range Interpretation Comments Total Protein (test code = 2885-2) 6.7 6.5-8.1 [facility] AntonioAlbumin2020-01-16 06:49:00* Test Item Value Reference Range Interpretation Comments Albumin (test code = 1751-7) 3.8 3.5-5.0 [facility] AntonioGlobulin2020-01-16 06:49:00* Test Item Value Reference Range Interpretation Comments Globulin (test code = 53499-2) 2.9 2.3-3.5 [facility] AntonioAlbumin/Globulin Adkbj1853-17-25 06:49:00 * Test Item Value Reference Range Interpretation Comments Albumin/Globulin Ratio (test code = 1759-0) 1.3 0.8-2.0 [facility] AntonioAlkaline Cmzsztjppbu3166-43-59 06:49:00* Test Item Value Reference Range Interpretation Comments Alkaline Phosphatase (test code = 6768-6) 75 40-150 [facility] AntonioWhite Blood Mtvft9863-41-69 06:26:00* Test Item Value Reference Range Interpretation Comments White Blood Count (test code = 6690-2) 1.77 4.8-10.8 LL Results called to ALIVIA SMITH at 0625 on 09/27/19 by Houston De Leon. RB OK.[facility] AntonioRed Blood Omgly5303-48-07 06:26:00* Test Item Value Reference Range Interpretation Comments Red Blood Count (test code = 789-8) 3.21 4.3-5.7 L [facility] AntonioHemoglobin2020-01-16 06:26:00* Test Item Value Reference Range Interpretation Comments Hemoglobin (test code = 12875-8) 9.4 14.0-18.0 L [facility] AntonioHematocrit2020-01-16 06:26:00* Test Item Value Reference Range Interpretation Comments Hematocrit (test code = 4544-3) 31.2 38.2-49.6 L [facility] San AntonioMean Corpuscular Dejiph6999-28-25 06:26:00* Test Item Value Reference Range Interpretation Comments Mean Corpuscular Volume (test code = 787-2) 97.2 81-99 [facility] AntonioMean Corpuscular Mmyfdrcomg3717-55-39 06:26:00* Test Item Value Reference Range Interpretation Comments Mean Corpuscular Hemoglobin (test code = 785-6) 29.3 28-32 [facility] San AntonioMean Corpuscular Hemoglobin Concent 2019-09-27 06:26:00* Test Item Value Reference Range Interpretation Comments Mean Corpuscular Hemoglobin Concent (test code = 786-4) 30.1 31-35 L [facility] San AntonioRed Cell Distribution Nkmpg6750-18-46 06:26:00* Test Item Value Reference Range Interpretation Comments Red Cell Distribution Width (test code = 40526-0) 23.3 11.7 -14.4 H [facility] San AntonioPlatelet Xqmkg5496-31-18 06:26:00* Test Item Value Reference Range Interpretation Comments Platelet Count (test code = 777-3) 649 140-360 H [facility] AntonioNeutrophils (%) (Auto)2019-09-27 06:26:00 * Test Item Value Reference Range Interpretation Comments Neutrophils (%) (Auto) (test code = 85041-6) 61.5 38.7-80.0 [facility] AntonioLymphocytes (%) (Auto)2019-09-27 06:26:00 * Test Item Value Reference Range Interpretation Comments Lymphocytes (%) (Auto) (test code = 736-9) 33.3 18.0-39.1 [facility] AntonioMonocytes (%) (Auto)2019-09-27 06:26:00* Test Item Value Reference Range Interpretation Comments Monocytes (%) (Auto) (test code = 5905-5) 4.0 4.4-11.3 L [facility] AntonioEosinophils (%) (Auto)2019-09-27 06:26:00 * Test Item Value Reference Range Interpretation Comments Eosinophils (%) (Auto) (test code = 713-8) 0.6 0.0-6.0 [facility] AntonioBasophils (%) (Auto)2019-09-27 06:26:00* Test Item Value Reference Range Interpretation Comments Basophils (%) (Auto) (test code = 706-2) 0.0 0.0-1.0 [facility] AntonioIM GRANULOCYTES %2019-09-27 06:26:00* Test Item Value Reference Range Interpretation Comments IM GRANULOCYTES % (test code = IM GRANULOCYTES %) 0.6 0.0- 1.0 [facility] AntonioNeutrophils # (Auto)2019-09-27 06:26:00* Test Item Value Reference Range Interpretation Comments Neutrophils # (Auto) (test code = 751-8) 1.1 2.1-6.9 L [facility] AntonioLymphocytes # (Auto)2019-09-27 06:26:00* Test Item Value Reference Range Interpretation Comments Lymphocytes # (Auto) (test code = 22452-2) 0.6 1.0-3.2 L [facility] AntonioMonocytes # (Auto)2019-09-27 06:26:00* Test Item Value Reference Range Interpretation Comments Monocytes # (Auto) (test code = 742-7) 0.1 0.2-0.8 L [facility] AntonioEosinophils # (Auto)2019-09-27 06:26:00* Test Item Value Reference Range Interpretation Comments Eosinophils # (Auto) (test code = 711-2) 0.0 0.0-0.4 [facility] AntonioBasophils # (Auto)2019-09-27 06:26:00* Test Item Value Reference Range Interpretation Comments Basophils # (Auto) (test code = 704-7) 0.0 0.0-0.1 [facility] San AntonioAbsolute Immature Granulocyte (auto 2019-09-27 06:26:00* Test Item Value Reference Range Interpretation Comments Absolute Immature Granulocyte (auto (joão t code = Absolute Immature Granulocyte (auto) 0.01 0-0.1 [facility] AntonioWhite Blood Toeqr7837-34-63 06:26:00* Test Item Value Reference Range Interpretation Comments White Blood Count (test code = 6690-2) 1.77 4.8-10.8 LL Results called to ALIVIA SMITH at 0625 on 09/27/19 by Houston De Leon. RB OK.[facility] San AntonioRed Blood Sjzav4067-75-49 06:26:00* Test Item Value Reference Range Interpretation Comments Red Blood Count (test code = 789-8) 3.21 4.3-5.7 L [facility] AntonioHemoglobin2020-01-16 06:26:00* Test Item Value Reference Range Interpretation Comments Hemoglobin (test code = 87140-7) 9.4 14.0-18.0 L [facility] AntonioHematocrit2020-01-16 06:26:00* Test Item Value Reference Range Interpretation Comments Hematocrit (test code = 4544-3) 31.2 38.2-49.6 L [facility] San AntonioMean Corpuscular Ykxyfi0541-40-93 06:26:00* Test Item Value Reference Range Interpretation Comments Mean Corpuscular Volume (test code = 787-2) 97.2 81-99 [facility] AntonioMean Corpuscular Dehdapbjrf1953-45-80 06:26:00* Test Item Value Reference Range Interpretation Comments Mean Corpuscular Hemoglobin (test code = 785-6) 29.3 28-32 [facility] San AntonioMean Corpuscular Hemoglobin Concent 2019-09-27 06:26:00* Test Item Value Reference Range Interpretation Comments Mean Corpuscular Hemoglobin Concent (test code = 786-4) 30.1 31-35 L [facility] AntonioRed Cell Distribution Okzjz2079-93-22 06:26:00* Test Item Value Reference Range Interpretation Comments Red Cell Distribution Width (test code = 00549-3) 23.3 11.7 -14.4 H [facility] AntonioPlatelet Rjdwt0519-30-93 06:26:00* Test Item Value Reference Range Interpretation Comments Platelet Count (test code = 777-3) 649 140-360 H [facility] AntonioNeutrophils (%) (Auto)2019-09-27 06:26:00 * Test Item Value Reference Range Interpretation Comments Neutrophils (%) (Auto) (test code = 30223-8) 61.5 38.7-80.0 [facility] AntonioLymphocytes (%) (Auto)2019-09-27 06:26:00 * Test Item Value Reference Range Interpretation Comments Lymphocytes (%) (Auto) (test code = 736-9) 33.3 18.0-39.1 [facility] AntonioMonocytes (%) (Auto)2019-09-27 06:26:00* Test Item Value Reference Range Interpretation Comments Monocytes (%) (Auto) (test code = 5905-5) 4.0 4.4-11.3 L [facility] AntonioEosinophils (%) (Auto)2019-09-27 06:26:00 * Test Item Value Reference Range Interpretation Comments Eosinophils (%) (Auto) (test code = 713-8) 0.6 0.0-6.0 [facility] AntonioBasophils (%) (Auto)2019-09-27 06:26:00* Test Item Value Reference Range Interpretation Comments Basophils (%) (Auto) (test code = 706-2) 0.0 0.0-1.0 [facility] [place]IM GR[place]ULOC[place]TES %2019-09-27 06:26:00* Test Item Value Reference Range Interpretation Comments IM GRANULOCYTES % (test code = IM GRANULOCYTES %) 0.6 0.0- 1.0 [facility] AntonioNeutrophils # (Auto)2019-09-27 06:26:00* Test Item Value Reference Range Interpretation Comments Neutrophils # (Auto) (test code = 751-8) 1.1 2.1-6.9 L [facility] AntonioLymphocytes # (Auto)2019-09-27 06:26:00* Test Item Value Reference Range Interpretation Comments Lymphocytes # (Auto) (test code = 63240-0) 0.6 1.0-3.2 L [facility] AntonioMonocytes # (Auto)2019-09-27 06:26:00* Test Item Value Reference Range Interpretation Comments Monocytes # (Auto) (test code = 742-7) 0.1 0.2-0.8 L [facility] AntonioEosinophils # (Auto)2019-09-27 06:26:00* Test Item Value Reference Range Interpretation Comments Eosinophils # (Auto) (test code = 711-2) 0.0 0.0-0.4 [facility] AntonioBasophils # (Auto)2019-09-27 06:26:00* Test Item Value Reference Range Interpretation Comments Basophils # (Auto) (test code = 704-7) 0.0 0.0-0.1 [facility] AntonioAbsolute Immature Granulocyte (auto 2019-09-27 06:26:00* Test Item Value Reference Range Interpretation Comments Absolute Immature Granulocyte (auto (joão t code = Absolute Immature Granulocyte (auto) 0.01 0-0.1 [facility] AntonioCapillary blood glucose measurement by glucometer (mass/volume)2019-09-27 06:23:00* Test Item Value Reference Range Interpretation Comments Bedside Glucose (test code = 44856-1) 86 70-120 Meter ID: [id number]'s Hospital of San AntonioBlood leukocytes automated count (number/volume)2019-09-27 04:30:00* Test Item Value Reference Range Interpretation Comments White Blood Count (test code = 6690-2) 1.77 4.8-10.8 Results called to ALIVIA SMITH at 0625 on 09/27/19 by [place]. RB [place].[facility] AntonioBlood erythrocytes automated count (number/volume)2019-09-27 04:30:00* Test Item Value Reference Range Interpretation Comments Red Blood Count (test code = 789-8) 3.21 4.3-5.7 [facility] AntonioBlood hemoglobin measurement (moles/volume)2019-09-27 04:30:00* Test Item Value Reference Range Interpretation Comments Hemoglobin (test code = 23438-8) 9.4 14.0-18.0 [facility] AntonioAutomated blood hematocrit (volume fraction)2019-09-27 04:30:00* Test Item Value Reference Range Interpretation Comments Hematocrit (test code = 4544-3) 31.2 38.2-49.6 [facility] AntonioAutomated erythrocyte mean corpuscular itssyy5488-85-81 04:30:00* Test Item Value Reference Range Interpretation Comments Mean Corpuscular Volume (test code = 787-2) 97.2 81-99 [facility] AntonioAutomated erythrocyte mean corpuscular hemoglobin (mass per erythrocyte)2019-09-27 04:30:00* Test Item Value Reference Range Interpretation Comments Mean Corpuscular Hemoglobin (test code = 785-6) 29.3 28-32 [facility] AntonioAutomated erythrocyte mean corpuscular hemoglobin concentration measurement (mass/volume)2019-09-27 04:30:00* Test Item Value Reference Range Interpretation Comments Mean Corpuscular Hemoglobin Concent (test code = 786-4) 30.1 31-35 [facility] AntonioRDW IalFy-Yob0936-99-16 04:30:00* Test Item Value Reference Range Interpretation Comments Red Cell Distribution Width (test code = 90921-1) 23.3 11.7 -14.4 [facility] AntonioAutomated blood platelet count (count/volume)2019-09-27 04:30:00* Test Item Value Reference Range Interpretation Comments Platelet Count (test code = 777-3) 649 140-360 [facility] AntonioAutat[facility] blood segmented neutrophil count as percentage of total zqvripvymw5769-76-80 04:30:00* Test Item Value Reference Range Interpretation Comments Neutrophils (%) (Auto) (test code = 57881-1) 61.5 38.7-80.0 [facility] AntonioAutomated blood lymphocyte count as percentage ot total etkelftafc1376-93-82 04:30:00* Test Item Value Reference Range Interpretation Comments Lymphocytes (%) (Auto) (test code = 736-9) 33.3 18.0-39.1 [facility] AntonioAutomated blood monocyte count as percentage of total sdaxnnfvst4315-83-56 04:30:00* Test Item Value Reference Range Interpretation Comments Monocytes (%) (Auto) (test code = 5905-5) 4.0 4.4-11.3 [facility] AntonioAutomated blood eosinophil count as percentage of total ylnnshvnin6849-30-84 04:30:00* Test Item Value Reference Range Interpretation Comments Eosinophils (%) (Auto) (test code = 713-8) 0.6 0.0-6.0 [facility] AntonioAutomated blood basophil count as percentage of total fxrjrwvcym9073-53-04 04:30:00* Test Item Value Reference Range Interpretation Comments Basophils (%) (Auto) (test code = 706-2) 0.0 0.0-1.0 [facility] AntonioFluoroscopic procedure less than one hour rlsvqysi5329-42-45 04:30:00* Test Item Value Reference Range Interpretation Comments IM GRANULOCYTES % (test code = IM GRANULOCYTES %) 0.6 0.0- 1.0 [facility] AntonioAutomated blood neutrophil count 2019-09-27 04:30:00* Test Item Value Reference Range Interpretation Comments Neutrophils # (Auto) (test code = 751-8) 1.1 2.1-6.9 [facility] AntonioBlood lymphocytes count (number/volume) 2019-09-27 04:30:00* Test Item Value Reference Range Interpretation Comments Lymphocytes # (Auto) (test code = 45778-2) 0.6 1.0-3.2 [facility] AntonioBlood monocytes automated count (number/volume)2019-09-27 04:30:00* Test Item Value Reference Range Interpretation Comments Monocytes # (Auto) (test code = 742-7) 0.1 0.2-0.8 [facility] AntonioAutomated blood eosinophil count 2019-09-27 04:30:00* Test Item Value Reference Range Interpretation Comments Eosinophils # (Auto) (test code = 711-2) 0.0 0.0-0.4 [facility] AntonioAutomated blood basophil count (count/volume)2019-09-27 04:30:00* Test Item Value Reference Range Interpretation Comments Basophils # (Auto) (test code = 704-7) 0.0 0.0-0.1 [facility] AntonioFluoroscopic procedure less than one hour xbwqsgbt8382-16-85 04:30:00* Test Item Value Reference Range Interpretation Comments Absolute Immature Granulocyte (auto (joão t code = Absolute Immature Granulocyte (auto) 0.01 0-0.1 [facility] AntonioFluoroscopic procedure less than one hour iwezphvz0337-38-17 04:30:00* Test Item Value Reference Range Interpretation Comments Differential Total Cells Counted (test code = Differyvrose tial Total Cells Counted) 100 [facility] AntonioManual blood neutrophils/100 leukocytes 2019-09-27 04:30:00* Test Item Value Reference Range Interpretation Comments Neutrophils % (Manual) (test code = 38195-4) 66 40-74 [facility] blood lymphocytes/100 leukocytes 2019-09-27 04:30:00* Test Item Value Reference Range Interpretation Comments Lymphocytes % (Manual) (test code = 737-7) 31 19-48 [facility] leukocytes 2019-09-27 04:30:00* Test Item Value Reference Range Interpretation Comments Monocytes % (Manual) (test code = 744-3) 3 3.4-9.0 [facility] AntonioBlood platelets count by estimate (number/volume)2019-09-27 04:30:00* Test Item Value Reference Range Interpretation Comments Platelet Estimate (test code = 41749-5) MARKEDLY INCREASED [facility] AntonioPlatelet spbteaacuc6524-21-80 04:30:00* Test Item Value Reference Range Interpretation Comments Platelet Morphology Comment (test code = 76214-6) NORMAL [facility] AntonioRBC jpkyloazcv5633-66-24 04:30:00* Test Item Value Reference Range Interpretation Comments Red Cell Morphology Comment (test code = 6742-1) NORMAL [facility] sodium measurement (moles/volume)2019-09-27 04:30:00* Test Item Value Reference Range Interpretation Comments Sodium Level (test code = 2951-2) 140 136-145 [facility] Hospitalerum or plasma potassium measurement (moles/volume)2019-09-27 04:30:00* Test Item Value Reference Range Interpretation Comments Potassium Level (test code = 2823-3) 3.6 3.5-5.1 [facility] Hospitalerum or plasma chloride measurement (moles/volume)2019-09-27 04:30:00* Test Item Value Reference Range Interpretation Comments Chloride Level (test code = 2075-0) 106 98-107 [facility] Hospitalerum or plasma carbon dioxide, total measurement (moles/volume)2019-09-27 04:30:00* Test Item Value Reference Range Interpretation Comments Carbon Dioxide Level (test code = 2028-9) 21 22-29 [facility] Hospitalerum or plasma anion kts3777-45-20 04:30:00* Test Item Value Reference Range Interpretation Comments Anion Gap (test code = 49308-0) 16.6 8-16 [facility] Hospitaler[facility] or plasma urea nitrogen measurement (mass/volume)2019-09-27 04:30:00* Test Item Value Reference Range Interpretation Comments Blood Urea Nitrogen (test code = 3094-0) 22 7-26 [facility] Hospitalerum or plasma creatinine measurement (mass/volume)2019-09-27 04:30:00* Test Item Value Reference Range Interpretation Comments Creatinine (test code = 2160-0) 1.11 0.72-1.25 [facility] Hospitalerum or plasma urea nitrogen/creatinine mass cdmwg9281-05-30 04:30:00* Test Item Value Reference Range Interpretation Comments BUN/Creatinine Ratio (test code = 3097-3) 20 6-25 [facility] AntonioEstimated glomerular filtration rate (GFR) tmfssrycfzsrq7419-95-17 04:30:00* Test Item Value Reference Range Interpretation Comments Estimat Glomerular Filtration Rate (test code = 352250257) > 60 >60 Ranges were taken from the National Kidney Disease Education Program and the [facility] [employer] [employer] literature.Reference ranges:60 or greater: Ftlioz79-19 ( for 3 consecutive months): Chronic kidney disease 15 or less: Kidney failureChildren's Hospital of San AntonioGlucose yonwfnaenro0534-99-22 04:30:00* Test Item Value Reference Range Interpretation Comments Glucose Level (test code = PHC5349) 82 74-118 [facility] Hospitaler[facility] or plasma calcium measurement (mass/volume)2019-09-27 04:30:00* Test Item Value Reference Range Interpretation Comments Calcium Level (test code = 50084-1) 9.7 8.4-10.2 [facility] Hospitaler[facility] or plasma total bilirubin measurement (mass/volume)2019-09-27 04:30:00* Test Item Value Reference Range Interpretation Comments Total Bilirubin (test code = 1975-2) 0.9 0.2-1.2 [facility] AntonioFluoroscopic procedure less than one hour egyfpxye2289-54-79 04:30:00* Test Item Value Reference Range Interpretation Comments Aspartate Amino Transf (AST/SGOT) (test code = Aspartate Amino Transf (AST/SGOT)) 46 5-34 [facility] Hospitalerum or plasma alanine aminotransferase measurement (enzymatic activity/volume)2019-09-27 04:30:00* Test Item Value Reference Range Interpretation Comments Alanine Aminotransferase (ALT/SGPT) (test code = 1742-6) 19 0-55 [facility] Hospitaler[facility] or plasma protein measurement (mass/volume)2019-09-27 04:30:00* Test Item Value Reference Range Interpretation Comments Total Protein (test code = 2885-2) 6.7 6.5-8.1 [facility] Hospitaler[facility] or plasma albumin measurement (mass/volume)2019-09-27 04:30:00* Test Item Value Reference Range Interpretation Comments Albumin (test code = 1751-7) 3.8 3.5-5.0 [facility] AntonioPlasma globulin measurement (mass/volume) 2019-09-27 04:30:00* Test Item Value Reference Range Interpretation Comments Globulin (test code = 28551-5) 2.9 2.3-3.5 [facility] Hospitaler[facility] or plasma albumin/globulin mass ekker7787-64-05 04:30:00* Test Item Value Reference Range Interpretation Comments Albumin/Globulin Ratio (test code = 1759-0) 1.3 0.8-2.0 [facility] Hospitaler[facility] or plasma alkaline phosphatase measurement (enzymatic activity/volume)2019-09-27 04:30:00* Test Item Value Reference Range Interpretation Comments Alkaline Phosphatase (test code = 6768-6) 75 40-150 [facility] AntonioFerritin2020-01-15 07:21:00* Test Item Value Reference Range Interpretation Comments Ferritin (test code = 2276-4) 344.26 21.81-274.66 H [facility] AntonioFerritin2020-01-15 07:21:00* Test Item Value Reference Range Interpretation Comments Ferritin (test code = 2276-4) 344.26 21.81-274.66 H [facility]2020-01-15 06:58:00* Test Item Value Reference Range Interpretation Comments Iron Level (test code = 2498-4) 35 65-175 L [facility] Iron Binding Yfnmxlzz9822-78-57 06:58:00* Test Item Value Reference Range Interpretation Comments Total Iron Binding Capacity (test code = 2500-7) 304 261-4 78 [facility] AntonioPercent Iron Tnooogshrq3267-92-75 06:58:00* Test Item Value Reference Range Interpretation Comments Percent Iron Saturation (test code = 2502-3) 12 15-50 L [facility] AntonioTransferrin2020-01-15 06:58:00* Test Item Value Reference Range Interpretation Comments Transferrin (test code = 3034-6) 217 174-364 [facility]2020-01-15 06:58:00* Test Item Value Reference Range Interpretation Comments Iron Level (test code = 2498-4) 35 65-175 L [facility] Iron Binding Ytdmrimi7374-10-58 06:58:00* Test Item Value Reference Range Interpretation Comments Total Iron Binding Capacity (test code = 2500-7) 304 261-4 78 [facility] Iron Kwyxksrhdx9911-95-42 06:58:00* Test Item Value Reference Range Interpretation Comments Percent Iron Saturation (test code = 2502-3) 12 15-50 L [facility] AntonioTransferrin2020-01-15 06:58:00* Test Item Value Reference Range Interpretation Comments Transferrin (test code = 3034-6) 217 174-364 [facility]er[facility] plasma iron measurement (mass/volume)2019-09-26 04:10:00* Test Item Value Reference Range Interpretation Comments Iron Level (test code = 2498-4) 35 65-175 [facility] Hospitaler[facility] or plasma iron binding capacity measurement (mass/volume)2019-09-26 04:10:00* Test Item Value Reference Range Interpretation Comments Total Iron Binding Capacity (test code = 2500-7) 304 261-4 78 [facility] Hospitaler[facility] or plasma iron saturation measurement (mass fraction)2019-09-26 04:10:00* Test Item Value Reference Range Interpretation Comments Percent Iron Saturation (test code = 2502-3) 12 15-50 [facility]er[facility] or plasma transferrin measurement (mass/volume)2019-09-26 04:10:00* Test Item Value Reference Range Interpretation Comments Transferrin (test code = 3034-6) 217 174-364 [facility] Hospitaler[facility] or plasma ferritin measurement (mass/volume)2019-09-26 04:10:00* Test Item Value Reference Range Interpretation Comments Ferritin (test code = 2276-4) 344.26 21.81-274.66 [facility] Occult Teryq3508-53-02 10:11:00* Test Item Value Reference Range Interpretation Comments Stool Occult Blood (test code = 2335-8) POSITIVE NEGATIVE [facility] Occult Iddpr6317-41-06 10:11:00* Test Item Value Reference Range Interpretation Comments Stool Occult Blood (test code = 2335-8) POSITIVE NEGATIVE H [facility] Hospitaltool gastrointestinal hemoglobin jfpdceihk4232-57-19 07:30:00* Test Item Value Reference Range Interpretation Comments Stool Occult Blood (test code = 2335-8) POSITIVE NEGATIVE [facility] AntonioCreatine Kinase [id number] 18:28:00* Test Item Value Reference Range Interpretation Comments Creatine Kinase MB (test code = 92399-9) 2.00 0-4.3 [facility] AntonioTroponin [id number] 18:28:00* Test Item Value Reference Range Interpretation Comments Troponin I (test code = 86817-6) < 0.05 0.0-0.40 [facility] AntonioCreatine Kinase [id number] 18:28:00* Test Item Value Reference Range Interpretation Comments Creatine Kinase MB (test code = 81193-4) 2.00 0-4.3 [facility] AntonioTroponin [id number] 18:28:00* Test Item Value Reference Range Interpretation Comments Troponin I (test code = 84735-2) < 0.05 0.0-0.40 [facility] AntonioCreatine Hnzdgk9172-21-49 18:20:00* Test Item Value Reference Range Interpretation Comments Creatine Kinase (test code = 2157-6) 161 30-200 [facility] AntonioCreatine Wztvmw9667-78-97 18:20:00* Test Item Value Reference Range Interpretation Comments Creatine Kinase (test code = 2157-6) 161 30-200 [facility] Hospitaler[facility] or plasma creatine kinase measurement (enzymatic activity/volume)2019-09-23 16:30:00* Test Item Value Reference Range Interpretation Comments Creatine Kinase (test code = 2157-6) 161 30-200 [facility] Hospitaler[facility] or plasma creatine kinase MB measurement (mass/volume)2019-09-23 16:30:00* Test Item Value Reference Range Interpretation Comments Creatine Kinase MB (test code = 92460-5) 2.00 0-4.3 [facility] Hospitaler[facility] or plasma troponin i.cardiac measurement (mass/volume)2019-09-23 16:30:00* Test Item Value Reference Range Interpretation Comments Troponin I (test code = 90017-1) < 0.05 0.0-0.40 [facility] AntonioMagnesium Pfucw4557-57-77 20:56:00* Test Item Value Reference Range Interpretation Comments Magnesium Level (test code = 77258-1) 2.2 1.3-2.1 H [facility] AntonioMabroad[facility] Ngwqh9474-13-51 20:56:00* Test Item Value Reference Range Interpretation Comments Magnesium Level (test code = 02686-4) 2.2 1.3-2.1 H [facility] AntonioUrine [id number] 20:16:00* Test Item Value Reference Range Interpretation Comments Urine WBC (test code = 5821-4) 0-5 0-5 [facility] AntonioUrine [id number] 20:16:00* Test Item Value Reference Range Interpretation Comments Urine RBC (test code = 86233-2) 0-5 0-5 [facility] AntonioUrine Sysgqbph3814-21-59 20:16:00* Test Item Value Reference Range Interpretation Comments Urine Bacteria (test code = 12103-8) PRESENT NONE [facility] AntonioUrine Epithelial Htcxm8561-71-92 20:16:00 * Test Item Value Reference Range Interpretation Comments Urine Epithelial Cells (test code = 76301-6) FEW NONE [facility] AntonioUrine [id number] 20:16:00* Test Item Value Reference Range Interpretation Comments Urine WBC (test code = 5821-4) 0-5 0-5 [facility] AntonioUrine [id number] 20:16:00* Test Item Value Reference Range Interpretation Comments Urine RBC (test code = 20355-2) 0-5 0-5 [facility] AntonioUrine Zzqwhrnr8553-71-05 20:16:00* Test Item Value Reference Range Interpretation Comments Urine Bacteria (test code = 89667-0) PRESENT NONE [facility] AntonioUrine Epithelial Izwvc4741-81-54 20:16:00 * Test Item Value Reference Range Interpretation Comments Urine Epithelial Cells (test code = 50115-5) FEW NONE [facility] AntonioB-Type Natriuretic Hgjcjpf5295-36-50 20:07:00* Test Item Value Reference Range Interpretation Comments B-Type Natriuretic Peptide (test code = 45420-4) 293.0 0-100 H [facility] AntonioB-Type Natriuretic Kkqicum5920-16-16 20:07:00* Test Item Value Reference Range Interpretation Comments B-Type Natriuretic Peptide (test code = 67146-9) 293.0 0-100 H [facility] AntonioProthrombin Pnjq7335-35-92 20:04:00* Test Item Value Reference Range Interpretation Comments Prothrombin Time (test code = 5902-2) 15.1 11.9-14.5 H [facility] AntonioProthromb Time International Ratio 2019-09-22 20:04:00* Test Item Value Reference Range Interpretation Comments Prothromb Time International Ratio (test code = 6301-6) 1.13 Oral Anticoagulant Therapy INR Values:1. Low Intensity Therapy 1.5 - 2.02 . Moderate Intensity Therapy 2.0 - 3.03. High Intensity Therapy(1) 2.5 - 3. 54. High Intensity Therapy(2) 3.0 - 4.05. Panic Value INR > 5.0 [facility] AntonioActivated Partial Thromboplast Time 2019-09-22 20:04:00* Test Item Value Reference Range Interpretation Comments Activated Partial Thromboplast Time (test code = 81656-6) 36.1 23.8-35.5 H [facility] AntonioProthrombin Jpzp8820-41-95 20:04:00* Test Item Value Reference Range Interpretation Comments Prothrombin Time (test code = 5902-2) 15.1 11.9-14.5 H [facility] AntonioProthromb Time International Ratio 2019-09-22 20:04:00* Test Item Value Reference Range Interpretation Comments Prothromb Time International Ratio (test code = 6301-6) 1.13 Oral Anticoagulant Therapy INR Values:1. Low Intensity Therapy 1.5 - 2.02 . Moderate Intensity Therapy 2.0 - 3.03. High Intensity Therapy(1) 2.5 - 3. 54. High Intensity Therapy(2) 3.0 - 4.05. Panic Value INR > 5.0 [facility] AntonioActivated Partial Thromboplast Time 2019-09-22 20:04:00* Test Item Value Reference Range Interpretation Comments Activated Partial Thromboplast Time (test code = 51374-0) 36.1 23.8-35.5 H [facility] AntonioUrine Pqzwj9517-00-83 19:49:00* Test Item Value Reference Range Interpretation Comments Urine Color (test code = 5778-6) YELLOW YELLOW [facility] AntonioUrine Qywpywk2401-31-84 19:49:00* Test Item Value Reference Range Interpretation Comments Urine Clarity (test code = 40658-6) CLEAR CLEAR [facility] AntonioUrine Specific Jvuljki5031-19-86 19:49:00 * Test Item Value Reference Range Interpretation Comments Urine Specific [place] (test code = 5811-5) 1.025 1.010-1.02 5 [facility] AntonioUrine [id number] 19:49:00* Test Item Value Reference Range Interpretation Comments Urine pH (test code = 67605-9) 6 5-7 [facility] AntonioUrine Leukocyte Kkgiblxe9511-96-81 19:49:00* Test Item Value Reference Range Interpretation Comments Urine Leukocyte Esterase (test code = 5799-2) NEGATIVE NEGATIVE [facility] AntonioUrine Wrsaeyx9438-49-15 19:49:00* Test Item Value Reference Range Interpretation Comments Urine Nitrite (test code = 84915-1) NEGATIVE NEGATIVE [facility] AntonioUrine Bzjlnjp8148-98-14 19:49:00* Test Item Value Reference Range Interpretation Comments Urine Protein (test code = 5804-0) 2+ NEGATIVE H [facility] AntonioUrine Glucose (UA)2019-09-22 19:49:00* Test Item Value Reference Range Interpretation Comments Urine Glucose (UA) (test code = 2349-9) NEGATIVE NEGATIVE [facility] AntonioUrine Jreerny4612-94-78 19:49:00* Test Item Value Reference Range Interpretation Comments Urine Ketones (test code = 44650-9) NEGATIVE NEGATIVE [facility] AntonioUrine Gdzgbzeqnugr3299-08-19 19:49:00* Test Item Value Reference Range Interpretation Comments Urine Urobilinogen (test code = 12017-8) 0.2 0.2-1 [facility] AntonioUrine Rpfishnax9309-19-13 19:49:00* Test Item Value Reference Range Interpretation Comments Urine Bilirubin (test code = 1978-6) NEGATIVE NEGATIVE [facility] AntonioUrine Sxsjo6765-75-39 19:49:00* Test Item Value Reference Range Interpretation Comments Urine Blood (test code = 84681-5) NEGATIVE NEGATIVE [facility] AntonioUrine Hchks0174-90-23 19:49:00* Test Item Value Reference Range Interpretation Comments Urine Color (test code = 5778-6) YELLOW YELLOW [facility] AntonioUrine Fwuohmx4547-65-26 19:49:00* Test Item Value Reference Range Interpretation Comments Urine Clarity (test code = 95374-0) CLEAR CLEAR [facility] AntonioUrine Specific Uyxdnjq5053-48-40 19:49:00 * Test Item Value Reference Range Interpretation Comments Urine Specific [place] (test code = 5811-5) 1.025 1.010-1.02 5 [facility] AntonioUrine [id number] 19:49:00* Test Item Value Reference Range Interpretation Comments Urine pH (test code = 03520-4) 6 5-7 [facility] AntonioUrine Leukocyte Ahzbknmg0624-03-53 19:49:00* Test Item Value Reference Range Interpretation Comments Urine Leukocyte Esterase (test code = 5799-2) NEGATIVE NEGATIVE [facility] Sklxrnm7219-47-02 19:49:00* Test Item Value Reference Range Interpretation Comments Urine Nitrite (test code = 28091-5) NEGATIVE NEGATIVE [facility] Dumhbkt3919-64-05 19:49:00* Test Item Value Reference Range Interpretation Comments Urine Protein (test code = 5804-0) 2+ NEGATIVE H [facility] Glucose (UA)2019-09-22 19:49:00* Test Item Value Reference Range Interpretation Comments Urine Glucose (UA) (test code = 2349-9) NEGATIVE NEGATIVE [facility] Abmcfvn3602-25-74 19:49:00* Test Item Value Reference Range Interpretation Comments Urine Ketones (test code = 45543-5) NEGATIVE NEGATIVE [facility] Fppolrdbrhik5859-38-58 19:49:00* Test Item Value Reference Range Interpretation Comments Urine Urobilinogen (test code = 69630-3) 0.2 0.2-1 [facility] Qdajhfzgh9431-16-53 19:49:00* Test Item Value Reference Range Interpretation Comments Urine Bilirubin (test code = 1978-6) NEGATIVE NEGATIVE [facility] Antonio[facility] Pnumh2314-32-33 19:49:00* Test Item Value Reference Range Interpretation Comments Urine Blood (test code = 08303-8) NEGATIVE NEGATIVE [facility] AntonioProthrombin time (PT) in platelet poor plasma by coagulation dqlkj7789-95-91 18:05:00* Test Item Value Reference Range Interpretation Comments Prothrombin Time (test code = 5902-2) 15.1 11.9-14.5 [facility] AntonioINR in Platelet poor plasma by Coagulation bvahc2719-68-76 18:05:00* Test Item Value Reference Range Interpretation Comments Prothromb Time International Ratio (test code = 6301-6) 1.13 Oral Anticoagulant Therapy INR Values:1. Low Intensity Therapy 1.5 - 2.02 . Moderate Intensity Therapy 2.0 - 3.03. High Intensity Therapy(1) 2.5 - 3. 54. High Intensity Therapy(2) 3.0 - 4.05. Panic Value INR > 5.0 [facility] AntonioActivated partial thromboplastin time (aPTT) in platelet poor plasma by coagulation siptj1163-71-93 18:05:00* Test Item Value Reference Range Interpretation Comments Activated Partial Thromboplast Time (test code = 09712-6) 36.1 23.8-35.5 [facility] Hospitaler[facility] or plasma magnesium measurement (mass/volume)2019-09-22 18:05:00* Test Item Value Reference Range Interpretation Comments Magnesium Level (test code = 58393-1) 2.2 1.3-2.1 [facility] AntonioBNP Jkn-uAxh5356-90-11 18:05:00* Test Item Value Reference Range Interpretation Comments B-Type Natriuretic Peptide (test code = 23609-5) 293.0 0-100 [facility] AntonioCHEST SINGLE (PORTABLE)2019-09-22 17:39:00 [facility] [address] [address] Patient Name: ALEX PETERS MR #: [id number] : 1935 Age/Sex: 84/M Req #: [id number] Adm Physician: Ordered by: JEREMIAH BARBOZA [employer]HOU[employer] LEAD Report #: [id number] Location: ER Room/Bed: Procedure: [id number] DX/ CHEST SINGLE (PORTABLE) Exam Date: 09/22/19 [...] However, it is similar morphology to the scouts image from the CT of the c [...] CALVIN on 09/22/191743 COPY TO: JEREMIAH BARBOZA WAREHOUSE LEAD Urine color jxfsuzeqcpcvk0571-22-67 15:28:00* Test Item Value Reference Range Interpretation Comments Urine Color (test code = 5778-6) YELLOW YELLOW [facility] AntonioU[facility] iblpjzb7710-84-05 15:28:00* Test Item Value Reference Range Interpretation Comments Urine Clarity (test code = 36985-3) CLEAR CLEAR [facility] Hospitalpecific gravity of Urine by Test strip 2019-09-22 15:28:00* Test Item Value Reference Range Interpretation Comments Urine Specific [place] (test code = 5811-5) 1.025 1.010-1.02 5 [facility] AntonioUrine pH measurement by automated test cmxrm4825-75-50 15:28:00* Test Item Value Reference Range Interpretation Comments Urine pH (test code = 76869-4) 6 5-7 [facility] AntonioUrine leukocyte esterase detection by yneewptq3179-81-42 15:28:00* Test Item Value Reference Range Interpretation Comments Urine Leukocyte Esterase (test code = 5799-2) NEGATIVE NEGATIVE [facility] AntonioUrine nitrite vhpqblvjj9903-79-18 15:28:00* Test Item Value Reference Range Interpretation Comments Urine Nitrite (test code = 54643-1) NEGATIVE NEGATIVE [facility] AntonioUrine protein measurement by test strip (mass/volume)2019-09-22 15:28:00* Test Item Value Reference Range Interpretation Comments Urine Protein (test code = 5804-0) 2+ NEGATIVE [facility] AntonioUrine glucose saflqtslc8115-33-35 15:28:00* Test Item Value Reference Range Interpretation Comments Urine Glucose (UA) (test code = 2349-9) NEGATIVE NEGATIVE [facility] AntonioUrine ketones detection by automated test sbusm3547-29-70 15:28:00* Test Item Value Reference Range Interpretation Comments Urine Ketones (test code = 79551-7) NEGATIVE NEGATIVE [facility] AntonioUrine urobilinogen measurement by test strip (mass/volume)2019-09-22 15:28:00* Test Item Value Reference Range Interpretation Comments Urine Urobilinogen (test code = 92128-8) 0.2 0.2-1 [facility] AntonioUrine total bilirubin measurement (mass/volume)2019-09-22 15:28:00* Test Item Value Reference Range Interpretation Comments Urine Bilirubin (test code = 1978-6) NEGATIVE NEGATIVE [facility] AntonioUrine erythrocytes kaaybgljf7605-38-39 15:28:00* Test Item Value Reference Range Interpretation Comments Urine Blood (test code = 58870-6) NEGATIVE NEGATIVE [facility] AntonioAutomated urine sediment leukocyte count by microscopy (number/high power field)2019-09-22 15:28:00* Test Item Value Reference Range Interpretation Comments Urine WBC (test code = 5821-4) 0-5 0-5 [facility] AntonioErythrocytes detection in urine sediment by light cblthjolpu6667-50-50 15:28:00* Test Item Value Reference Range Interpretation Comments Urine RBC (test code = 15343-5) 0-5 0-5 [facility] AntonioBacteria detection in urine sediment by light ebztlufyvb4439-46-70 15:28:00* Test Item Value Reference Range Interpretation Comments Urine Bacteria (test code = 62050-4) PRESENT NONE [facility] AntonioEpithelial cells detection in urine sediment by light ecicouqggx1097-58-34 15:28:00* Test Item Value Reference Range Interpretation Comments Urine Epithelial Cells (test code = 41013-7) FEW NONE [facility] AntonioJAK2 Mutation (PCR)2019-07-12 06:24:00* Test Item Value Reference Range Interpretation Comments JAK2 Mutation (PCR) (test code = 19240-4) NEGATIVE [facility] AntonioJAK2 V617F Interpretation/Report 2019-07-12 06:24:00* Test Item Value Reference Range Interpretation Comments JAK2 V617F Interpretation/Report (test code = 17902-5) The JAK2 V617F mutation is not detected in the provided specimen of this individual. This result does not rule out the presence of the JAK2 mutation at a level below the sensitivity of detection of this assay, or the presence of other mutations within JAK2 not detected by this assay. [facility] AntonioJAK2 V617F Oxpbcvot5061-33-36 06:24:00* Test Item Value Reference Range Interpretation Comments JAK2 V617F Specimen (test code = 66459-8) Background: The Quantitative Real- Time PCR assay [...] the JAK2 gene will not be detected. [facility] AntonioJAK2 V617F Reviewed Ze2901-02-84 06:24:00 * Test Item Value Reference Range Interpretation Comments JAK2 V617F Reviewed By (test code = 15838-5) Director Review: Yamila Hamilton, PhD, [facility] Director, Molecular Genetics [facility] [place], [place] [facility] [address] [facility] [place] [address] Dir: Willem Beauchamp MD [facility] AntonioJAK2 Mutation (PCR)2019-07-12 06:24:00* Test Item Value Reference Range Interpretation Comments JAK2 Mutation (PCR) (test code = 68283-9) NEGATIVE [facility] AntonioJAK2 V617F Interpretation/Report 2019-07-12 06:24:00* Test Item Value Reference Range Interpretation Comments JAK2 V617F Interpretation/Report (test code = 34791-8) The JAK2 V617F mutation is not detected in the provided specimen of this individual. This result does not rule out the presence of the JAK2 mutation at a level below the sensitivity of detection of this assay, or the presence of other mutations within JAK2 not detected by this assay. [facility] AntonioJAK2 V617F Wonpdbzg4516-85-98 06:24:00* Test Item Value Reference Range Interpretation Comments JAK2 V617F Specimen (test code = 95160-3) Background: The Quantitative Real- Time PCR assay [...] the JAK2 gene will not be detected. [facility] AntonioJAK2 V617F Reviewed Fl0786-82-21 06:24:00 * Test Item Value Reference Range Interpretation Comments JAK2 V617F Reviewed By (test code = 84587-2) Director Review: Yamila Hamilton, PhD, [facility] Director, Molecular Genetics [facility] [place], [place] [facility] [address] [facility] [place] [address] Dir: Willem Beauchamp MD [facility] AntonioErythropoietin2019-10-28 21:55:00* Test Item Value Reference Range Interpretation Comments Erythropoietin (test code = 94602-0) 26.4 2.6-18.5 H [employer] DxI 800 Immunoassay SystemValues obtained with different assay methods or kits cannotbe used interchangeably. Results cannot be interpret ed asabsolute evidence of the presence or absence of malignantdisease.Performed at: [facility] [employer] [id number] Direct or: Kurtis Alvarez MD, Phone: [phone][facility] Hospital of San AntonioErythropoietin2019-10-28 21:55:00* Test Item Value Reference Range Interpretation Comments Erythropoietin (test code = 17279-7) 26.4 2.6-18.5 H [employer] DxI 800 Immunoassay SystemValues obtained with different assay methods or kits cannotbe used interchangeably. Results cannot be interpret ed asabsolute evidence of the presence or absence of malignantdisease.Performed at: [facility] [employer] [id number] Direct or: Kurtis Avlarez MD, Phone: [phone][facility] Hospital of San AntonioBlood Wwputjb6885-95-98 13:52:00* Test Item Value Reference Range Interpretation Comments Blood Culture (test code = 87688760) NO GROWTH AFTER 5 DAYS, FINAL REPORT [facility] AntonioBlood Seccdqk2183-27-58 13:52:00* Test Item Value Reference Range Interpretation Comments Blood Culture (test code = 76103670) NO GROWTH AFTER 5 DAYS, FINAL REPORT [facility] AntonioBedside Fayudnz0405-82-07 11:31:00* Test Item Value Reference Range Interpretation Comments Bedside Glucose (test code = 59545-0) 89 70-120 Meter ID: [id number] [facility] CenterDifferent[facility] Total Cells Vuzdvdr7131-12-67 07:09:00* Test Item Value Reference Range Interpretation Comments Differential Total Cells Counted (test code = Differen tial Total Cells Counted) 100 [facility] AntonioNeutrophils % (Manual)2019-07-08 07:09:00 * Test Item Value Reference Range Interpretation Comments Neutrophils % (Manual) (test code = 00883-4) 58 40-74 [facility] AntonioLymphocytes % (Manual)2019-07-08 07:09:00 * Test Item Value Reference Range Interpretation Comments Lymphocytes % (Manual) (test code = 737-7) 37 19-48 [facility] AntonioMonocytes % (Manual)2019-07-08 07:09:00* Test Item Value Reference Range Interpretation Comments Monocytes % (Manual) (test code = 744-3) 3 3.4-9.0 L [facility] AntonioEosinophils % (Manual)2019-07-08 07:09:00 * Test Item Value Reference Range Interpretation Comments Eosinophils % (Manual) (test code = 714-6) 1 0-7 [facility] AntonioReactive Enskzqamxfk9925-28-68 07:09:00* Test Item Value Reference Range Interpretation Comments Reactive Lymphocytes (test code = 78208-2) 1 [facility] AntonioPlatelet Xrfvnoif8396-37-22 07:09:00* Test Item Value Reference Range Interpretation Comments Platelet Estimate (test code = 95752-2) ADEQUATE [facility] AntonioPlatelet Morphology Vlktukv2439-25-93 07:09:00* Test Item Value Reference Range Interpretation Comments Platelet Morphology Comment (test code = 77211-8) NORMAL [facility] AntonioRed Cell Morphology Fomncht2715-65-95 07:09:00* Test Item Value Reference Range Interpretation Comments Red Cell Morphology Comment (test code = 6742-1) NORMAL [facility] AntonioEosinophils % (Manual)2019-07-08 07:09:00 * Test Item Value Reference Range Interpretation Comments Eosinophils % (Manual) (test code = 714-6) 1 0-7 [facility] AntonioReactive Rrnihfjidlf1893-98-34 07:09:00* Test Item Value Reference Range Interpretation Comments Reactive Lymphocytes (test code = 54014-2) 1 [facility] AntonioEosinophils % (Manual)2019-07-08 07:09:00 * Test Item Value Reference Range Interpretation Comments Eosinophils % (Manual) (test code = 714-6) 1 0-7 [facility] AntonioReactive Trqrrieexvj5765-99-75 07:09:00* Test Item Value Reference Range Interpretation Comments Reactive Lymphocytes (test code = 78012-7) 1 [facility] Hospitalodium Tisqg1379-36-91 05:37:00* Test Item Value Reference Range Interpretation Comments Sodium Level (test code = 2951-2) 139 136-145 [facility] AntonioPotassium Lythr5791-88-74 05:37:00* Test Item Value Reference Range Interpretation Comments Potassium Level (test code = 2823-3) 3.7 3.5-5.1 [facility] AntonioChloride Oeasd6222-55-64 05:37:00* Test Item Value Reference Range Interpretation Comments Chloride Level (test code = 2075-0) 106 98-107 [facility] AntonioCarbon Dioxide Advcf1388-34-78 05:37:00* Test Item Value Reference Range Interpretation Comments Carbon Dioxide Level (test code = 2028-9) 22 22-29 [facility] AntonioAnion Tea3993-12-20 05:37:00* Test Item Value Reference Range Interpretation Comments Anion Gap (test code = 82334-1) 14.7 8-16 [facility] AntonioBlood Urea Nnaltotq1599-80-84 05:37:00* Test Item Value Reference Range Interpretation Comments Blood Urea Nitrogen (test code = 3094-0) 19 7- [facility] AntonioCreatinine2019-10-27 05:37:00* Test Item Value Reference Range Interpretation Comments Creatinine (test code = 2160-0) 0.97 0.72-1.25 [facility] AntonioBUN/Creatinine Gycvj2638-04-61 05:37:00* Test Item Value Reference Range Interpretation Comments BUN/Creatinine Ratio (test code = 3097-3) 20 6- [facility] AntonioEstimat Glomerular Filtration Rate 2019-07-08 05:37:00* Test Item Value Reference Range Interpretation Comments Estimat Glomerular Filtration Rate (test code = 943640149) > 60 >60 Ranges were taken from the National Kidney Disease Education Program and the [facility] literature.Reference ranges:60 or greater: Puwpln24-96 ( for 3 consecutive months): Chronic kidney disease 15 or less: Kidney failureChildren's Hospital of San AntonioGlucose Jbwod5828-13-45 05:37:00* Test Item Value Reference Range Interpretation Comments Glucose Level (test code = KQH7234) 88 74-118 [facility] AntonioCalcium Tsghx9320-95-06 05:37:00* Test Item Value Reference Range Interpretation Comments Calcium Level (test code = 82309-4) 9.3 8.4-10.2 [facility] AntonioPhosphorus Lzrvs5314-40-89 05:27:00* Test Item Value Reference Range Interpretation Comments Phosphorus Level (test code = IZA2056) 2.1 2.3-4.7 L [facility] AntonioMagnesium Ibpja8463-23-71 05:27:00* Test Item Value Reference Range Interpretation Comments Magnesium Level (test code = 05765-2) 2.0 1.3-2.1 [facility] AntonioPhosphorus Qvhki0165-86-22 05:27:00* Test Item Value Reference Range Interpretation Comments Phosphorus Level (test code = ZOF0824) 2.1 2.3-4.7 L [facility] AntonioPhosphorus Qeerz1271-02-42 05:27:00* Test Item Value Reference Range Interpretation Comments Phosphorus Level (test code = UKP1610) 2.1 2.3-4.7 L [facility] AntonioWhite Blood Yseuq6283-91-15 05:16:00* Test Item Value Reference Range Interpretation Comments White Blood Count (test code = 6690-2) 1.84 4.8-10.8 LL Results called to LISA VALLADARES RN at 0514 on 07/08/19 by Felipe Shepard. RB [place].Thi s test has been rerun and double checked for accuracy.[facility] AntonioRed Blood Vwwaj1500-00-58 05:16:00* Test Item Value Reference Range Interpretation Comments Red Blood Count (test code = 789-8) 3.20 4.3-5.7 L [facility] AntonioHemoglobin2019-10-27 05:16:00* Test Item Value Reference Range Interpretation Comments Hemoglobin (test code = 62526-2) 8.9 14.0-18.0 L [facility] AntonioHematocrit2019-10-27 05:16:00* Test Item Value Reference Range Interpretation Comments Hematocrit (test code = 4544-3) 28.0 38.2-49.6 L [facility] AntonioMean Corpuscular Buiqbs8956-51-75 05:16:00* Test Item Value Reference Range Interpretation Comments Mean Corpuscular Volume (test code = 787-2) 87.5 81-99 [facility] AntonioMean Corpuscular Clicdokhss3612-07-02 05:16:00* Test Item Value Reference Range Interpretation Comments Mean Corpuscular Hemoglobin (test code = 785-6) 27.8 28-32 L [facility] AntonioMean Corpuscular Hemoglobin Concent 2019-07-08 05:16:00* Test Item Value Reference Range Interpretation Comments Mean Corpuscular Hemoglobin Concent (test code = 786-4) 31.8 31-35 [facility] AntonioRed Cell Distribution Myyli4544-58-54 05:16:00* Test Item Value Reference Range Interpretation Comments Red Cell Distribution Width (test code = 13908-9) 19.5 11.7 -14.4 H [facility] AntonioPlatelet Weubg2885-09-00 05:16:00* Test Item Value Reference Range Interpretation Comments Platelet Count (test code = 777-3) 309 140-360 [facility] AntonioNeutrophils (%) (Auto)2019-07-08 05:16:00 * Test Item Value Reference Range Interpretation Comments Neutrophils (%) (Auto) (test code = 47191-6) 57.2 38.7-80.0 [facility] AntonioLymphocytes (%) (Auto)2019-07-08 05:16:00 * Test Item Value Reference Range Interpretation Comments Lymphocytes (%) (Auto) (test code = 736-9) 36.4 18.0-39.1 [facility] AntonioMonocytes (%) (Auto)2019-07-08 05:16:00* Test Item Value Reference Range Interpretation Comments Monocytes (%) (Auto) (test code = 5905-5) 5.4 4.4-11.3 [facility] AntonioEosinophils (%) (Auto)2019-07-08 05:16:00 * Test Item Value Reference Range Interpretation Comments Eosinophils (%) (Auto) (test code = 713-8) 0.5 0.0-6.0 [facility] AntonioBasophils (%) (Auto)2019-07-08 05:16:00* Test Item Value Reference Range Interpretation Comments Basophils (%) (Auto) (test code = 706-2) 0.0 0.0-1.0 [facility] AntonioIM GRANULOCYTES %2019-07-08 05:16:00* Test Item Value Reference Range Interpretation Comments IM GRANULOCYTES % (test code = IM GRANULOCYTES %) 0.5 0.0- 1.0 [facility] AntonioNeutrophils # (Auto)2019-07-08 05:16:00* Test Item Value Reference Range Interpretation Comments Neutrophils # (Auto) (test code = 751-8) 1.1 2.1-6.9 L [facility] AntonioLymphocytes # (Auto)2019-07-08 05:16:00* Test Item Value Reference Range Interpretation Comments Lymphocytes # (Auto) (test code = 52852-7) 0.7 1.0-3.2 L [facility] AntonioMonocytes # (Auto)2019-07-08 05:16:00* Test Item Value Reference Range Interpretation Comments Monocytes # (Auto) (test code = 742-7) 0.1 0.2-0.8 L [facility] AntonioEosinophils # (Auto)2019-07-08 05:16:00* Test Item Value Reference Range Interpretation Comments Eosinophils # (Auto) (test code = 711-2) 0.0 0.0-0.4 [facility] AntonioBasophils # (Auto)2019-07-08 05:16:00* Test Item Value Reference Range Interpretation Comments Basophils # (Auto) (test code = 704-7) 0.0 0.0-0.1 [facility] AntonioAbsolute Immature Granulocyte (auto 2019-07-08 05:16:00* Test Item Value Reference Range Interpretation Comments Absolute Immature Granulocyte (auto (joão t code = Absolute Immature Granulocyte (auto) 0.01 0-0.1 [facility] AntonioManual blood eosinophil count as percentage of total asicexwghv2444-92-66 04:40:00* Test Item Value Reference Range Interpretation Comments Eosinophils % (Manual) (test code = 714-6) 1 0-7 [facility] AntonioBlood lymphocytes variant count (number/volume)2019-07-08 04:40:00* Test Item Value Reference Range Interpretation Comments Reactive Lymphocytes (test code = 50334-3) 1 [facility] AntonioPhosphorus txavsgsmuly1718-75-73 04:30:00 * Test Item Value Reference Range Interpretation Comments Phosphorus Level (test code = ISP0673) 2.1 2.3-4.7 [facility] AntonioBlood Vkhwste3913-59-38 13:52:00* Test Item Value Reference Range Interpretation Comments Blood Culture (test code = 76486283) NO GROWTH AFTER 72 HOURS [facility] AntonioBand Neutrophils %2019-07-06 09:43:00* Test Item Value Reference Range Interpretation Comments Band Neutrophils % (test code = 764-1) 1 [facility] AntonioBand Neutrophils %2019-07-06 09:43:00* Test Item Value Reference Range Interpretation Comments Band Neutrophils % (test code = 764-1) 1 [facility] AntonioBand Neutrophils %2019-07-06 09:43:00* Test Item Value Reference Range Interpretation Comments Band Neutrophils % (test code = 764-1) 1 [facility] AntonioClostridium Difficile Toxin A & B 2019-07-06 09:39:00* Test Item Value Reference Range Interpretation Comments Clostridium Difficile Toxin A & B (test code = 957691933) POSI TIVE NEGATIVE H Results called to JOSÉ RAYMOND at 0937 on 07/06/19 by Citlalli Hurst. RB OK. Results called to [facility] in infection control at 0937 on 07/06/19 by Regino Hurst.Testing on stool aspirate specimens is outside coke drawer claims si nce specimen type not validated on this assay.[facility] AntonioClostridium Difficile Toxin A & I8029-34-71 09:39:00* Test Item Value Reference Range Interpretation Comments Clostridium Difficile Toxin A & B (test code = 708258920) POSI TIVE NEGATIVE H Results called to JOSÉ RAYMOND at 0937 on 07/06/19 by Citlalli Hurst. RB [place]. Results called to [facility] in infection control at 0937 on 07/06/19 by Regino Hurst.Testing on stool aspirate specimens is outside coke drawer claims si nce specimen type not validated on this assay.[facility] AntonioClostridium Difficile Toxin A & I4672-60-04 09:39:00* Test Item Value Reference Range Interpretation Comments Clostridium Difficile Toxin A & B (test code = 343208724) POSI TIVE NEGATIVE H Results called to JOSÉ RAYMOND at 0937 on 07/06/19 by Citlalli Hurst. RB [place]. Results called to [facility] in infection control at 0937 on 07/06/19 by Regino Hurst.Testing on stool aspirate specimens is outside coke drawer claims si nce specimen type not validated on this assay.[facility] AntonioManual blood band neutrophils form/100 cydvgryrhx5993-65-89 06:10:00* Test Item Value Reference Range Interpretation Comments Band Neutrophils % (test code = 764-1) 1 [facility] Hospitalerum or plasma erythropoietin (EPO) measurement (units/volume)2019-07-06 06:10:00* Test Item Value Reference Range Interpretation Comments Erythropoietin (test code = 20531-5) 26.4 2.6-18.5 Edgar SinDelantal[employer] DxI 800 Immunoassay SystemValues obtained with different assay methods or kits cannotbe used interchangeably. Results cannot be interpret ed asabsolute evidence of the presence or absence of malignantdisease.Performed at: [address] [id number] Direct or: Kurtis Alvarez MD, Phone: [phone] Hermann [facility] Heights Hospitaltool Lactoferrin (LAB)2019-07-05 21:12:00* Test Item Value Reference Range Interpretation Comments Stool Lactoferrin (LAB) (test code = 04787-5) POSITIVE NEGATIVE H Testing on stool aspirate specimens is outside coke drawer claims since specime n type not validated on this assay.[facility] Lactoferrin (LAB)2019-07-05 21:12:00* Test Item Value Reference Range Interpretation Comments Stool Lactoferrin (LAB) (test code = 62887-2) POSITIVE NEGATIVE H Testing on stool aspirate specimens is outside coke drawer claims since specime n type not validated on this assay.[facility] Lact[facility]errin ([facility])2019-07-05 21:12:00* Test Item Value Reference Range Interpretation Comments Stool Lactoferrin (LAB) (test code = 68825-6) POSITIVE NEGATIVE H Testing on stool aspirate specimens is outside coke drawer claims since specime n type not validated on this assay.[facility] lact[facility]errin hdqhrfxad0053-52-61 19:50:00* Test Item Value Reference Range Interpretation Comments Stool Lactoferrin (LAB) (test code = 90359-7) POSITIVE NEGATIVE Testing on stool aspirate specimens is outside coke drawer claims since specime n type not validated on this assay.[facility] Clostridium difficile A and B toxin avviw8682-58-17 19:50:00* Test Item Value Reference Range Interpretation Comments Clostridium Difficile Toxin A & B (test code = 233306461) POSI TIVE NEGATIVE Results called to JOSÉ RAYMOND at 0937 on 07/06/19 by Citlalli Hurst. RB [place]. Results called to TESFAYE EAST in infection control at 0937 on 07/06/19 by Regino Hurst.Testing on stool aspirate specimens is outside coke drawer claims si nce specimen type not validated on this assay.[facility] AntonioProcalcitonin2019-10-24 16:45:00* Test Item Value Reference Range Interpretation Comments Procalcitonin (test code = 089463530) 0.11 0.00-0.08 H A procalcitonin (PCT) level [...] any concentrations <2 ng/mL are obtained.Performed at: [address] [id number] Director: Yamil Enriquez MD, Phone: [phone]'s Hospital of San AntonioProcalcitonin2019-10-24 16:45:00* Test Item Value Reference Range Interpretation Comments Procalcitonin (test code = 645806243) 0.11 0.00-0.08 H A procalcitonin (PCT) level [...] any concentrations <2 ng/mL are obtained.Performed at: [employer] [address] [id number] Director: Yamil Enriquez MD, Phone: [phone]'s Hospital of San AntonioProcalcitonin2019-10-24 16:45:00* Test Item Value Reference Range Interpretation Comments Procalcitonin (test code = 869629970) 0.11 0.00-0.08 H A procalcitonin (PCT) level [...] any concentrations <2 ng/mL are obtained.Performed at: [employer] [address] [id number] Director: Yamil Enriquez MD, Phone: [phone]'s Hospital of San AntonioBlood or tissue JAK2 gene p.V617F detection by molecular genetics nyijzo5013-67-73 05:00:00* Test Item Value Reference Range Interpretation Comments JAK2 Mutation (PCR) (test code = 45751-6) NEGATIVE [facility] AntonioBlood or tissue JAK2 gene p.V617F mutant/normal by molecular genetics jkwtef5892-05-77 05:00:00* Test Item Value Reference Range Interpretation Comments JAK2 V617F Interpretation/Report (test code = 64923-4) See Comment The JAK2 V617F mutation is not detected in the provided specimen of this individ ual. This result does not rule out the presence of the JAK2 mutation at a level below the sensitivity of detection of this assay, or the presence of other mutat ions within JAK2 not detected by this assay.[facility] AntonioJAK2 V617F mutation zrgvejncc4565-54-15 05:00:00* Test Item Value Reference Range Interpretation Comments JAK2 V617F Specimen (test code = 99586-6) See Comment Background: The Quantitative Real-Time PCR [...] in the JAK2 gene will not be detected.[facility] AntonioJAK2 V617F mutation gcbwgintn0171-57-68 05:00:00* Test Item Value Reference Range Interpretation Comments JAK2 V617F Reviewed By (test code = 68908-8) See Comment Director Review:Yamila Hamilton, PhD, [facility] Director, Molecular GeneticsLabCorp [facility] MolecularBiology and PathologyReidville, [phone] [id number] [place] [address]Vlu: Willem Beauchamp MD [facility] AntonioVancomycin Level Cadpln5150-63-68 15:27:00* Test Item Value Reference Range Interpretation Comments Vancomycin Level Trough (test code = 4092-3) 13.5 5.0-10.0 HH Results repeated and called to UMAIR COLLAZO RN at 1524 on 07/04/19 by Suzanne Greco x. Read back and verified.[facility] AntonioVancomycin Level Shzhwa3868-24-24 15:27:00* Test Item Value Reference Range Interpretation Comments Vancomycin Level Trough (test code = 4092-3) 13.5 5.0-10.0 HH Results repeated and called to UMAIR COLLAZO RN at 1524 on 07/04/19 by Suzanne Greco x. Read back and verified.[facility] AntonioVancomycin Level Wgyjzb5296-99-30 15:27:00* Test Item Value Reference Range Interpretation Comments Vancomycin Level Trough (test code = 4092-3) 13.5 5.0-10.0 HH Results repeated and called to UMAIR COLLAZO RN at 1524 on 07/04/19 by Suzanne Greco x. Read back and verified.[facility] Hospitalerum or plasma trough vancomycin level at trough (mass/volume)2019-07-04 14:50:00* Test Item Value Reference Range Interpretation Comments Vancomycin Level Trough (test code = 4092-3) 13.5 5.0-10.0 Results repeated and called to UMAIR COLLAZO RN at 1524 on 07/04/19 by Suzanne Greco x. Read back and verified.[facility] AntonioProcalcitonin (PCT) xeesm8622-86-29 14:50:00* Test Item Value Reference Range Interpretation Comments Procalcitonin (test code = 142775143) 0.11 0.00-0.08 A procalcitonin (PCT) level above [...] any concentrations <2 ng/mL are obtained.Performed at: - [employer] [id number] Director: Yamil Enriquez MD, Phone: [phone] Santa Rosa Hospital – Medical Centerpochromasia2019-10-23 07:11:00* Test Item Value Reference Range Interpretation Comments Hypochromasia (test code = 728-6) SLIGHT [facility] AntonioHypochromasia2019-10-23 07:11:00* Test Item Value Reference Range Interpretation Comments Hypochromasia (test code = 728-6) SLIGHT [facility] AntonioHypochromasia2019-10-23 07:11:00* Test Item Value Reference Range Interpretation Comments Hypochromasia (test code = 728-6) SLIGHT [facility] AntonioTotal Zmaczfvct3126-29-66 06:23:00* Test Item Value Reference Range Interpretation Comments Total Bilirubin (test code = 1975-2) 0.8 0.2-1.2 [facility] AntonioAspartate Amino Transf (AST/SGOT) 2019-07-04 06:23:00* Test Item Value Reference Range Interpretation Comments Aspartate Amino Transf (AST/SGOT) (test code = Aspartate Amino Transf (AST/SGOT)) 36 5-34 H [facility] AntonioAlanine Aminotransferase (ALT/SGPT) 2019-07-04 06:23:00* Test Item Value Reference Range Interpretation Comments Alanine Aminotransferase (ALT/SGPT) (test code = 1742-6) 19 0-55 [facility] AntonioTotal Bhziysv0517-49-52 06:23:00* Test Item Value Reference Range Interpretation Comments Total Protein (test code = 2885-2) 6.7 6.5-8.1 [facility] AntonioAlbumin2019-10-23 06:23:00* Test Item Value Reference Range Interpretation Comments Albumin (test code = 1751-7) 3.3 3.5-5.0 L [facility] AntonioGlobulin2019-10-23 06:23:00* Test Item Value Reference Range Interpretation Comments Globulin (test code = 95819-8) 3.4 2.3-3.5 [facility] AntonioAlbumin/Globulin Kaanw2621-82-69 06:23:00 * Test Item Value Reference Range Interpretation Comments Albumin/Globulin Ratio (test code = 1759-0) 1.0 0.8-2.0 [facility] AntonioAlkaline Qcnglwvnoyb6025-87-24 06:23:00* Test Item Value Reference Range Interpretation Comments Alkaline Phosphatase (test code = 6768-6) 74 40-150 [facility] AntonioBlood hypochromia detection by light qasduoccwo3005-32-21 05:10:00* Test Item Value Reference Range Interpretation Comments Hypochromasia (test code = 728-6) SLIGHT [facility] AntonioUrine EGR8203-61-69 18:05:00* Test Item Value Reference Range Interpretation Comments Urine WBC (test code = 5821-4) NONE 0-5 [facility] AntonioUrine HUX2393-56-25 18:05:00* Test Item Value Reference Range Interpretation Comments Urine RBC (test code = 08586-7) 0-5 0-5 [facility] AntonioUrine Uzowvcbe9133-39-91 18:05:00* Test Item Value Reference Range Interpretation Comments Urine Bacteria (test code = 41583-0) NONE NONE [facility] AntonioUrine Epithelial Zztrw5569-16-68 18:05:00 * Test Item Value Reference Range Interpretation Comments Urine Epithelial Cells (test code = 97452-4) RARE NONE [facility] AntonioLactic Acid Lihpw6793-60-69 17:56:00* Test Item Value Reference Range Interpretation Comments Lactic Acid Level (test code = Lactic Acid Level) 1.3 0.5- 2.0 [facility] AntonioLactic Acid Tpfcv2398-33-12 17:56:00* Test Item Value Reference Range Interpretation Comments Lactic Acid Level (test code = Lactic Acid Level) 1.3 0.5- 2.0 [facility] AntonioLactic Acid Umjvh2138-20-98 17:56:00* Test Item Value Reference Range Interpretation Comments Lactic Acid Level (test code = Lactic Acid Level) 1.3 0.5- 2.0 [facility] AntonioUrine Chqmf7944-82-87 17:53:00* Test Item Value Reference Range Interpretation Comments Urine Color (test code = 5778-6) YELLOW YELLOW [facility] AntonioUrine Wakwbay6832-01-59 17:53:00* Test Item Value Reference Range Interpretation Comments Urine Clarity (test code = 89613-9) SL CLOUDY CLEAR H [facility] AntonioUrine Specific Kxfllke1607-20-37 17:53:00 * Test Item Value Reference Range Interpretation Comments Urine Specific [place] (test code = 5811-5) 1.015 1.010-1.02 5 [facility] AntonioUrine nQ8913-46-05 17:53:00* Test Item Value Reference Range Interpretation Comments Urine pH (test code = 62544-4) 6 5-7 [facility] AntonioUrine Leukocyte Gbmbcszd3047-50-65 17:53:00* Test Item Value Reference Range Interpretation Comments Urine Leukocyte Esterase (test code = 5799-2) NEGATIVE NEGATIVE [facility] AntonioUrine Bybbrsy6733-07-05 17:53:00* Test Item Value Reference Range Interpretation Comments Urine Nitrite (test code = 16788-0) NEGATIVE NEGATIVE [facility] AntonioUrine Vlsxpiw6890-35-74 17:53:00* Test Item Value Reference Range Interpretation Comments Urine Protein (test code = 5804-0) 1+ NEGATIVE H [facility] AntonioUrine Glucose (UA)2019-07-03 17:53:00* Test Item Value Reference Range Interpretation Comments Urine Glucose (UA) (test code = 2349-9) NEGATIVE NEGATIVE [facility] AntonioUrine Gqosexa4100-74-91 17:53:00* Test Item Value Reference Range Interpretation Comments Urine Ketones (test code = 45735-3) NEGATIVE NEGATIVE [facility] AntonioUrine Kawgoftmazwu0277-76-44 17:53:00* Test Item Value Reference Range Interpretation Comments Urine Urobilinogen (test code = 89912-0) 0.2 0.2-1 [facility] AntonioUrine Zybesogor9537-81-07 17:53:00* Test Item Value Reference Range Interpretation Comments Urine Bilirubin (test code = 1978-6) NEGATIVE NEGATIVE [facility] AntonioUrine Qafzr6844-93-69 17:53:00* Test Item Value Reference Range Interpretation Comments Urine Blood (test code = 62605-5) NEGATIVE NEGATIVE [facility] AntonioFluoroscopic procedure less than one hour ncdzgxyf1224-70-59 17:30:00* Test Item Value Reference Range Interpretation Comments Lactic Acid Level (test code = Lactic Acid Level) 1.3 0.5- 2.0 [facility] AntonioCHEST SINGLE (PORTABLE)2019-07-03 15:03:00 [facility] [address] [place] [address] Patient Name: ALEX PETERS MR #: [id number] : 1935 Age/Sex: 84/M Req #: [id number] Adm Physician: Ordered by: JAIRON LAM MD Report #: [id number] Location: ER Room/Bed: Procedure: [id number] D X/CHEST SINGLE (PORTABLE) Exam Date: 07/03/19 [...] 1505 COPY TO: JAIRON LAM MD Troponin H5291-66-52 14:32:00* Test Item Value Reference Range Interpretation Comments Troponin I (test code = KCM3104) 0.015 0-0.300 [facility] AntonioInfluenza Virus Types A,B Antigen 2019-07-03 14:29:00* Test Item Value Reference Range Interpretation Comments Influenza Virus Types A,B Antigen (test code = 89527-0) NEGATIVE NEGATIVE [facility] AntonioInfluenza Virus Types A,B Antigen 2019-07-03 14:29:00* Test Item Value Reference Range Interpretation Comments Influenza Virus Types A,B Antigen (test code = 88831-3) NEGATIVE NEGATIVE [facility] AntonioInfluenza Virus Types A,B Antigen 2019-07-03 14:29:00* Test Item Value Reference Range Interpretation Comments Influenza Virus Types A,B Antigen (test code = 38413-8) NEGATIVE NEGATIVE [facility] AntonioInfluenza virus A and B antigen identification by jrvazkxklogofopevz3493-44-48 13:41:00* Test Item Value Reference Range Interpretation Comments Influenza Virus Types A,B Antigen (test code = 42342-0) NEGATIVE NEGATIVE [facility] AntonioBedside Pvzayxr8932-50-78 15:21:00* Test Item Value Reference Range Interpretation Comments Bedside Glucose (test code = 41206-3) 183 70-120 H Meter ID: [id number]'s Hospital of San AntonioHelos angeles [facility] B Surface Antibody, Yuwbs7410-38-10 12:16:00* Test Item Value Reference Range Interpretation Comments Hepatitis B Surface Antibody, Quant (test code = 5194-6) 241.1 Status of Immunity Anti-HBs Level Inconsistent with Immunity 0.0 - 9.9Consistent with Immunity >9.9[facility] B Core Total Dyrhlyyl9784-12-11 12:16:00* Test Item Value Reference Range Interpretation Comments Hepatitis B Core Total Antibody (test code = 15261-5) NEGATIVE Performed at: [facility] [employer] [address] [id number] Director: Yamil Enriquez MD, Phone: [phone] B Surface Ydfaeco6456-24-73 12:16:00* Test Item Value Reference Range Interpretation Comments Hepatitis B Surface Antigen (test code = 5196-1) NEGATIVE [facility] C Sjcyzzcc3039-60-75 12:16:00* Test Item Value Reference Range Interpretation Comments Hepatitis C Antibody (test code = 68755-3) <0.1 Reference Range: 0.0 - 0.9 s/co ratioNegative: < 0.8Indeterminate: 0.8 - 0.9Positive: > 0.9The CDC recommends that a positive HCV antibody resultbe followed up with a HCV Nucleic Acid Amplificationtest (533497).Testing performed by:[employer] [address] [id number]: Yamil Enriquez [facility] CenterHel[facility] B Surface Antibody, Quant 2019-06-20 12:16:00* Test Item Value Reference Range Interpretation Comments Hepatitis B Surface Antibody, Quant (test code = 5194-6) 241.1 Status of Immunity Anti-HBs Level Inconsistent with Immunity 0.0 - 9.9Consistent with Immunity >9.9[facility] B Core Total Qgqhuses1577-15-64 12:16:00* Test Item Value Reference Range Interpretation Comments Hepatitis B Core Total Antibody (test code = 06039-0) NEGATIVE Performed at: [address] [id number] Director: Yamil Enriquez MD, Phone: [phone] Health [facility] B Surface Hrxrjpe4414-65-06 12:16:00* Test Item Value Reference Range Interpretation Comments Hepatitis B Surface Antigen (test code = 5196-1) NEGATIVE [facility] C Gnjnzstq0790-36-15 12:16:00* Test Item Value Reference Range Interpretation Comments Hepatitis C Antibody (test code = 45721-3) <0.1 Reference Range: 0.0 - 0.9 s/co ratioNegative: < 0.8Indeterminate: 0.8 - 0.9Positive: > 0.9The CDC recommends that a positive HCV antibody resultbe followed up with a HCV Nucleic Acid Amplificationtest (438668).Testing performed by:[address] [id number]: Yamil Enriquez [facility] B Surface Antibody, Quant 2019-06-20 12:16:00* Test Item Value Reference Range Interpretation Comments Hepatitis B Surface Antibody, Quant (test code = 5194-6) 241.1 Status of Immunity Anti-HBs Level Inconsistent with Immunity 0.0 - 9.9Consistent with Immunity >9.9CUvalde [facility] B Core Total Aimfoqpc6797-27-98 12:16:00* Test Item Value Reference Range Interpretation Comments Hepatitis B Core Total Antibody (test code = 19580-0) NEGATIVE Performed at: [address] [id number] Director: Yamil Enriquez MD, Phone: [phone] Health [facility] B Surface Lbffpga8575-35-15 12:16:00* Test Item Value Reference Range Interpretation Comments Hepatitis B Surface Antigen (test code = 5196-1) NEGATIVE [facility] C Cwqbprax9122-63-71 12:16:00* Test Item Value Reference Range Interpretation Comments Hepatitis C Antibody (test code = 31113-1) <0.1 Reference Range: 0.0 - 0.9 s/co ratioNegative: < 0.8Indeterminate: 0.8 - 0.9Positive: > 0.9The CDC recommends that a positive HCV antibody resultbe followed up with a HCV Nucleic Acid Amplificationtest (282120).Testing performed by:[employer] [address] [id number]: Yamil Enriquez [facility] B Surface Antibody, Quant 2019-06-20 12:16:00* Test Item Value Reference Range Interpretation Comments Hepatitis B Surface Antibody, Quant (test code = 5194-6) 241.1 Status of Immunity Anti-HBs Level Inconsistent with Immunity 0.0 - 9.9Consistent with Immunity >9.9CUvalde Memorial Hospital B Core Total Sdpyhnwy6491-14-53 12:16:00* Test Item Value Reference Range Interpretation Comments Hepatitis B Core Total Antibody (test code = 31104-8) NEGATIVE Performed at: - [employer] [id number] Director: Yamil Enriquez MD, Phone: [phone] Health Tyler B Surface Znylgsg0779-54-65 12:16:00* Test Item Value Reference Range Interpretation Comments Hepatitis B Surface Antigen (test code = 5196-1) NEGATIVE [facility] C Jojkzyzk4319-08-47 12:16:00* Test Item Value Reference Range Interpretation Comments Hepatitis C Antibody (test code = 20293-1) <0.1 Reference Range: 0.0 - 0.9 s/co ratioNegative: < 0.8Indeterminate: 0.8 - 0.9Positive: > 0.9The CDC recommends that a positive HCV antibody resultbe followed up with a HCV Nucleic Acid Amplificationtest (165972).Testing performed by:[facility] [id number]: Yamil Enriquez [facility] Centert[facility] - Treadmill BMVP7334-39-70 14:59:00 [facility] [address] [place], [place] [address] Patient Name : ALEX PETERS MR #: [id number] : 1935 Age/Sex: 84/M Adm Physician : AVIS FLORES MD Admit Date : 06/13/19 Location [facility] Room/Bed : [facility] REPORT: Myoview St ress Test DATE OF STUDY: 06/18/2019 [...] LV ejection fraction is 58%. MD CHAVEZ Wilburn/MODL [id number] Signature Date Dictated By: ROME ARCOS MD T ranscribed By: MARCOL on 06/19/19 <Electronically signed by ROME ARCOS MD><< Signature on File>>07/08/19 1336 COPY TO: Blood Nsffhci1948-30-36 11:39:00* Test Item Value Reference Range Interpretation Comments Blood Culture (test code = 56624220) NO GROWTH AFTER 72 HOURS [facility] Center[facility] INSZMGL1003-84-48 17:29:00 [facility] [address] [place] [address] Patient Name: ALEX PETERS MR #: [id number] : 1935 Age/Sex: 84/M Req #: [id number] Adm Physician: BENITO GARCIA MD Ordered by: JUNIOR GUZMAN MD Report #: [id number] Location: MED/SURG2 Room/Bed: [facility] Procedure: [id number] DX/IR C ONSULT Exam Date: Exam Time: REPORT STATUS: Signed PROCEDURE: CT-guided bone marrow biopsy Procedural Personnel Attending physician(s): MD Rozina Guerin llow physician(s): None Resident physician(s): None Advanced practice [...] green top syringes, sli sahra made by labor crew supervisor. Needle removal The biopsy needle was removed [...] COPY TO: JUNIOR GUZMAN MD CT GUIDED BIOPSY/ASPIR/INJ/UEC6021-42-36 17:29:[address] [place] [address] Patient Name: ALEX PETERS MR #: [id number] : 1935 Age/Sex: 84/M Req #: [id number] Adm Physician: BENITO GARCIA MD Ordered by: JUNIOR GUZMAN MD Report #: [id number] Location: [place] [address] Room/Bed: [facility] Procedure: [id number] CT/CT G UIDED BIOPSY/ASPIR/INJ/KRISTYN Exam Date: 06/18/19 Exam Time: 1430 REPORT STATUS: Signed PROCEDURE: CT-guided bone marrow biopsy Procedural Personnel Attending p [place](s): Rachael Jenkins MD Fellow physician(s): None Resident [...] 2 green top syringes, slides made by Trivie. Needle removal The biopsy needle was removed [...] TO: JUNIOR GUZMAN MD BONE MARROW BX MRFDRHALAH7324-79-09 17:29:00 [place] [address] Patient Name: ALEX PETERS MR #: [id number] : 1935 Age/Sex: 84/M Req #: [id number] Adm Physician: BENITO GARCIA MD Ordered by: JUNIOR GUZMAN MD Report #: [id number] Location: MED/SURG2 Room/Bed: [facility] Procedure: [id number] IR/BONE MARROW BX ASPIRATION Exam Date: 06/18/19 Exam Dillan e: 1430 REPORT STATUS: Signed MI OCEDURE: CT-guided bone marrow biopsy Procedural Personnel [...] left iliac bone - Additional procedure(s): None MI OCEDURE DETAILS: Pre-procedure Reference imaging for biopsy [...] 2 green top syringes, slides made by Trivie. Needle removal The bio psy needle was [...] 33 PM Dictated By: RACHAEL JENKINS MD 32 Transcribed By: CALVIN on 06/18/191732 COPY TO: JUNIOR GUZMAN MD Blood Favppfm7994-67-35 11:28:00* Test Item Value Reference Range Interpretation Comments Blood Culture (test code = 600-7) No Result Data Provided [facility] Vuzhzgm8640-43-08 11:28:00* Test Item Value Reference Range Interpretation Comments Blood Culture (test code = 600-7) No Result Data Provided [facility] Spnjhud4412-93-95 11:28:00* Test Item Value Reference Range Interpretation Comments Blood Culture (test code = 600-7) No Result Data Provided [facility] Ggdxosp5484-52-72 11:28:00* Test Item Value Reference Range Interpretation Comments Blood Culture (test code = 600-7) No Result Data Provided [facility] AntonioProthrombin Moov7892-38-34 09:51:00* Test Item Value Reference Range Interpretation Comments Prothrombin Time (test code = 5902-2) 15.9 11.9-14.5 H [facility] AntonioProthromb Time International Ratio 2019-06-18 09:51:00* Test Item Value Reference Range Interpretation Comments Prothromb Time International Ratio (test code = 6301-6) 1.21 Oral Anticoagulant Therapy INR Values:1. Low Intensity Therapy 1.5 - 2.02 . Moderate Intensity Therapy 2.0 - 3.03. High Intensity Therapy(1) 2.5 - 3. 54. High Intensity Therapy(2) 3.0 - 4.05. Panic Value INR > 5.0 [facility] AntonioProthrombin Mcgg0209-41-65 09:51:00* Test Item Value Reference Range Interpretation Comments Prothrombin Time (test code = 5902-2) 15.9 11.9-14.5 H [facility] AntonioProthromb Time International Ratio 2019-06-18 09:51:00* Test Item Value Reference Range Interpretation Comments Prothromb Time International Ratio (test code = 6301-6) 1.21 Oral Anticoagulant Therapy INR Values:1. Low Intensity Therapy 1.5 - 2.02 . Moderate Intensity Therapy 2.0 - 3.03. High Intensity Therapy(1) 2.5 - 3. 54. High Intensity Therapy(2) 3.0 - 4.05. Panic Value INR > 5.0 [facility] AntonioPlatelet Ysjothmt7799-34-49 07:08:00* Test Item Value Reference Range Interpretation Comments Platelet Estimate (test code = 50363-9) ADEQUATE [facility] AntonioRed Cell Morphology Mfptjlz3244-97-87 07:08:00* Test Item Value Reference Range Interpretation Comments Red Cell Morphology Comment (test code = 6742-1) NORMAL [facility] Hospitalodium Qnrnk3470-12-33 05:42:00* Test Item Value Reference Range Interpretation Comments Sodium Level (test code = 2951-2) 136 136-145 [facility] AntonioPotassium Rozwh4711-87-52 05:42:00* Test Item Value Reference Range Interpretation Comments Potassium Level (test code = 2823-3) 3.9 3.5-5.1 [facility] AntonioChloride Hlkgd7496-70-34 05:42:00* Test Item Value Reference Range Interpretation Comments Chloride Level (test code = 2075-0) 101 98-107 [facility] AntonioCarbon Dioxide Pxgmn9813-54-81 05:42:00* Test Item Value Reference Range Interpretation Comments Carbon Dioxide Level (test code = 2028-9) 24 22-29 [facility] AntonioAnion Sxw0592-02-21 05:42:00* Test Item Value Reference Range Interpretation Comments Anion Gap (test code = 43470-7) 14.9 8-16 [facility] AntonioBlood Urea Sskvyqxp7679-83-35 05:42:00* Test Item Value Reference Range Interpretation Comments Blood Urea Nitrogen (test code = 3094-0) 24 7-26 [facility] AntonioCreatinine2019-10-07 05:42:00* Test Item Value Reference Range Interpretation Comments Creatinine (test code = 2160-0) 1.18 0.72-1.25 [facility] AntonioBUN/Creatinine Dwlty0988-26-45 05:42:00* Test Item Value Reference Range Interpretation Comments BUN/Creatinine Ratio (test code = 3097-3) 20 6-25 [facility] AntonioEstimat Glomerular Filtration Rate 2019-06-18 05:42:00* Test Item Value Reference Range Interpretation Comments Estimat Glomerular Filtration Rate (test code = 486111933) 59 >60 L Ranges were taken from the National Kidney Disease Education Program and the [facility] [employer] literature.Reference ranges:60 or greater: Myrhuu06-37 ( for 3 consecutive months): Chronic kidney disease 15 or less: Kidney failureChildren's Hospital of San AntonioGlucose Fezzr7680-54-99 05:42:00* Test Item Value Reference Range Interpretation Comments Glucose Level (test code = WRS5367) 110 74-118 [facility] AntonioCalcium Trvxg7441-72-60 05:42:00* Test Item Value Reference Range Interpretation Comments Calcium Level (test code = 15242-1) 9.9 8.4-10.2 [facility] AntonioWhite Blood Ufyxe8186-41-83 05:18:00* Test Item Value Reference Range Interpretation Comments White Blood Count (test code = 6690-2) 2.00 4.8-10.8 L [facility] AntonioRed Blood Xvscg0949-52-94 05:18:00* Test Item Value Reference Range Interpretation Comments Red Blood Count (test code = 789-8) 3.40 4.3-5.7 L [facility] AntonioHemoglobin2019-10-07 05:18:00* Test Item Value Reference Range Interpretation Comments Hemoglobin (test code = 84166-3) 9.5 14.0-18.0 L [facility] AntonioHematocrit2019-10-07 05:18:00* Test Item Value Reference Range Interpretation Comments Hematocrit (test code = 4544-3) 29.4 38.2-49.6 L [facility] AntonioMean Corpuscular Kpiwlo3032-18-70 05:18:00* Test Item Value Reference Range Interpretation Comments Mean Corpuscular Volume (test code = 787-2) 86.5 81-99 [facility] AntonioMean Corpuscular Nbmzznmssg6383-37-05 05:18:00* Test Item Value Reference Range Interpretation Comments Mean Corpuscular Hemoglobin (test code = 785-6) 27.9 28-32 L [facility] AntonioMean Corpuscular Hemoglobin Concent 2019-06-18 05:18:00* Test Item Value Reference Range Interpretation Comments Mean Corpuscular Hemoglobin Concent (test code = 786-4) 32.3 31-35 [facility] AntonioRed Cell Distribution Cjqyw2447-36-43 05:18:00* Test Item Value Reference Range Interpretation Comments Red Cell Distribution Width (test code = 77693-0) 20.6 11.7 -14.4 H [facility] AntonioPlatelet Idiaa5348-40-12 05:18:00* Test Item Value Reference Range Interpretation Comments Platelet Count (test code = 777-3) 370 140-360 H [facility] AntonioNeutrophils (%) (Auto)2019-06-18 05:18:00 * Test Item Value Reference Range Interpretation Comments Neutrophils (%) (Auto) (test code = 74104-5) 54.0 38.7-80.0 [facility] AntonioLymphocytes (%) (Auto)2019-06-18 05:18:00 * Test Item Value Reference Range Interpretation Comments Lymphocytes (%) (Auto) (test code = 736-9) 42.0 18.0-39.1 H [facility] AntonioMonocytes (%) (Auto)2019-06-18 05:18:00* Test Item Value Reference Range Interpretation Comments Monocytes (%) (Auto) (test code = 5905-5) 3.0 4.4-11.3 L [facility] AntonioEosinophils (%) (Auto)2019-06-18 05:18:00 * Test Item Value Reference Range Interpretation Comments Eosinophils (%) (Auto) (test code = 713-8) 0.5 0.0-6.0 [facility] AntonioBasophils (%) (Auto)2019-06-18 05:18:00* Test Item Value Reference Range Interpretation Comments Basophils (%) (Auto) (test code = 706-2) 0.0 0.0-1.0 [facility] AntonioIM GRANULOCYTES %2019-06-18 05:18:00* Test Item Value Reference Range Interpretation Comments IM GRANULOCYTES % (test code = IM GRANULOCYTES %) 0.5 0.0- 1.0 [facility] AntonioNeutrophils # (Auto)2019-06-18 05:18:00* Test Item Value Reference Range Interpretation Comments Neutrophils # (Auto) (test code = 751-8) 1.1 2.1-6.9 L [facility] AntonioLymphocytes # (Auto)2019-06-18 05:18:00* Test Item Value Reference Range Interpretation Comments Lymphocytes # (Auto) (test code = 76386-1) 0.8 1.0-3.2 L [facility] AntonioMonocytes # (Auto)2019-06-18 05:18:00* Test Item Value Reference Range Interpretation Comments Monocytes # (Auto) (test code = 742-7) 0.1 0.2-0.8 L [facility] AntonioEosinophils # (Auto)2019-06-18 05:18:00* Test Item Value Reference Range Interpretation Comments Eosinophils # (Auto) (test code = 711-2) 0.0 0.0-0.4 [facility] AntonioBasophils # (Auto)2019-06-18 05:18:00* Test Item Value Reference Range Interpretation Comments Basophils # (Auto) (test code = 704-7) 0.0 0.0-0.1 [facility] AntonioAbsolute Immature Granulocyte (auto 2019-06-18 05:18:00* Test Item Value Reference Range Interpretation Comments Absolute Immature Granulocyte (auto (joão t code = Absolute Immature Granulocyte (auto) 0.01 0-0.1 [facility] AntonioC-Reactive Mhbmcgl5598-43-04 01:40:00* Test Item Value Reference Range Interpretation Comments C-Reactive Protein (test code = 1987-5) 5 0-10 Performed at: [facility] Lab[address] [id number] Director: Yamil Enriquez MD, Phone: [phone]'s Hospital of San AntonioC-Reactive Yxpgsir0777-95-02 01:40:00* Test Item Value Reference Range Interpretation Comments C-Reactive Protein (test code = 1987-5) 5 0-10 Performed at: [address] [id number] Director: Yamil Enriquez MD, Phone: [phone]'s Hospital of San AntonioC-Reactive Xcjrbta2119-68-11 01:40:00* Test Item Value Reference Range Interpretation Comments C-Reactive Protein (test code = 1988-5) 5 0-10 Performed at: [address] [id number] Director: Yamil Enriquez MD, Phone: [phone] [place], [place] [address]C-Reactive Kvnouji6334-94-09 01:40:00* Test Item Value Reference Range Interpretation Comments C-Reactive Protein (test code = 1988-5) 5 0-10 Performed at: [address] [id number] Director: Yamil Enriquez MD, Phone: [phone] [place], [place] [address]Anti-Nuclear Antibody Xxblmc4955-14-14 01:39:00* Test Item Value Reference Range Interpretation Comments Anti-Nuclear Antibody Screen (test code = 5048-4) Negative . Negative <1:80 Borderline 1:80 Positive > 1:80Performed at: [address] [id number] 3Lab Director: Yamil Enriquez MD, Phone: [phone]'s Hospital of San AntonioRheumatoid Zkfrex7343-14-60 01:39:00* Test Item Value Reference Range Interpretation Comments Rheumatoid Factor (test code = 00824-3) <10.0 0.0-13.9 Performed at: [address] [id number] Director: Yamil Enriquez MD, Phone: [phone]'s Hospital of San AntonioAnti-Nuclear Antibody Ytslmx2166-96-44 01:39:00* Test Item Value Reference Range Interpretation Comments Anti-Nuclear Antibody Screen (test code = 5048-4) Negative . Negative <1:80 Borderline 1:80 Positive > 1:80Performed at: [address] [id number] 3Lab Director: Yamil Enriquez MD, Phone: [phone] Pinto General Hospitalid Roxkvj5334-87-87 01:39:00* Test Item Value Reference Range Interpretation Comments Rheumatoid Factor (test code = 95536-8) <10.0 0.0-13.9 Performed at: [address] [id number] Director: Yamil Enriquez MD, Phone: [phone] [place], [place] [address]Anti-Nuclear Antibody Wagpal7239-03-38 01:39:00* Test Item Value Reference Range Interpretation Comments Anti-Nuclear Antibody Screen (test code = 5048-4) Negative . Negative <1:80 Borderline 1:80 Positive > 1:80Performed at: [address] [id number] 3Lab Director: Yamil Enriquez MD, Phone: [phone] [place], [place] [address]2019-10-07 01:39:00* Test Item Value Reference Range Interpretation Comments Rheumatoid Factor (test code = 18742-0) <10.0 0.0-13.9 Performed at: [address] [id number] Director: Yamil Enriquez MD, Phone: [phone]'s Hospital of San AntonioAnti-Nuclear Antibody Rpfgiv2619-20-12 01:39:00* Test Item Value Reference Range Interpretation Comments Anti-Nuclear Antibody Screen (test code = 5048-4) Negative . Negative <1:80 Borderline 1:80 Positive > 1:80Performed at: [address] [id number] 3Lab Director: Yamil Enriquez MD, Phone: [phone] [facility] [place]2019-10-07 01:39:00* Test Item Value Reference Range Interpretation Comments Rheumatoid Factor (test code = 92186-5) <10.0 0.0-13.9 Performed at: [address] [id number] Director: Yamil Enriquez MD, Phone: [phone]'s Hospital of San AntonioDifferential Total Cells Gtswtyc7546-50-61 17:17:00* Test Item Value Reference Range Interpretation Comments Differential Total Cells Counted (test code = Mckenna velazquezl Total Cells Counted) 100 [facility] AntonioNeutrophils % (Manual)2019-06-17 17:17:00 * Test Item Value Reference Range Interpretation Comments Neutrophils % (Manual) (test code = 40558-0) 63 40-74 [facility] AntonioLymphocytes % (Manual)2019-06-17 17:17:00 * Test Item Value Reference Range Interpretation Comments Lymphocytes % (Manual) (test code = 737-7) 32 19-48 [facility] AntonioMonocytes % (Manual)2019-06-17 17:17:00* Test Item Value Reference Range Interpretation Comments Monocytes % (Manual) (test code = 744-3) 3 3.4-9.0 L [facility] AntonioEosinophils % (Manual)2019-06-17 17:17:00 * Test Item Value Reference Range Interpretation Comments Eosinophils % (Manual) (test code = 714-6) 1 0-7 [facility] AntonioPromyelocytes %2019-06-17 17:17:00* Test Item Value Reference Range Interpretation Comments Promyelocytes % (test code = 90720-6) 1 0-0 H [facility] AntonioPlatelet Morphology Npqurrs4174-37-57 17:17:00* Test Item Value Reference Range Interpretation Comments Platelet Morphology Comment (test code = 27495-3) FEW GIANT [facility] AntonioHypochromasia2019-10-06 17:17:00* Test Item Value Reference Range Interpretation Comments Hypochromasia (test code = 728-6) SLIGHT [facility] AntonioPromyelocytes %2019-06-17 17:17:00* Test Item Value Reference Range Interpretation Comments Promyelocytes % (test code = 61978-7) 1 0-0 H [facility] AntonioPromyelocytes %2019-06-17 17:17:00* Test Item Value Reference Range Interpretation Comments Promyelocytes % (test code = 51853-3) 1 0-0 H [facility] AntonioPromyelocytes %2019-06-17 17:17:00* Test Item Value Reference Range Interpretation Comments Promyelocytes % (test code = 82076-8) 1 0-0 H [facility] AntonioBlood promyelocytes/100 leukocytes 2019-06-17 13:51:00* Test Item Value Reference Range Interpretation Comments Promyelocytes % (test code = 07030-7) 1 0-0 [facility] AntonioVancomycin Level Ebjech1279-38-57 08:48:00* Test Item Value Reference Range Interpretation Comments Vancomycin Level Trough (test code = 4092-3) 6.7 5.0-10.0 [facility] AntonioAnisocytosis2019-10-05 07:08:00* Test Item Value Reference Range Interpretation Comments Anisocytosis (test code = 702-1) SLIGHT [facility] AntonioMicrocytosis2019-10-05 07:08:00* Test Item Value Reference Range Interpretation Comments Microcytosis (test code = 741-9) SLIGHT [facility] AntonioAnisocytosis2019-10-05 07:08:00* Test Item Value Reference Range Interpretation Comments Anisocytosis (test code = 702-1) SLIGHT [facility] AntonioMicrocytosis2019-10-05 07:08:00* Test Item Value Reference Range Interpretation Comments Microcytosis (test code = 741-9) SLIGHT [facility] AntonioAnisocytosis2019-10-05 07:08:00* Test Item Value Reference Range Interpretation Comments Anisocytosis (test code = 702-1) SLIGHT [facility] AntonioMicrocytosis2019-10-05 07:08:00* Test Item Value Reference Range Interpretation Comments Microcytosis (test code = 741-9) SLIGHT [facility] AntonioAnisocytosis2019-10-05 07:08:00* Test Item Value Reference Range Interpretation Comments Anisocytosis (test code = 702-1) SLIGHT [facility] AntonioMicrocytosis2019-10-05 07:08:00* Test Item Value Reference Range Interpretation Comments Microcytosis (test code = 741-9) SLIGHT [facility] AntonioErythrocyte Sedimentation Kwdy8084-23-21 06:40:00* Test Item Value Reference Range Interpretation Comments Erythrocyte Sedimentation Rate (test code = 4537-7) 28 0- 13 H [facility] AntonioErythrocyte Sedimentation Xmpp1550-75-17 06:40:00* Test Item Value Reference Range Interpretation Comments Erythrocyte Sedimentation Rate (test code = 4537-7) 28 0- 13 H [facility] AntonioErythrocyte Sedimentation Uvkl6315-01-19 06:40:00* Test Item Value Reference Range Interpretation Comments Erythrocyte Sedimentation Rate (test code = 4537-7) 28 0- 13 H [facility] AntonioErythrocyte Sedimentation Ybbw5014-54-16 06:40:00* Test Item Value Reference Range Interpretation Comments Erythrocyte Sedimentation Rate (test code = 4537-7) 28 0- 13 H [facility] AntonioBlood anisocytosis detection by light gveidyypfy8062-79-79 05:20:00* Test Item Value Reference Range Interpretation Comments Anisocytosis (test code = 702-1) SLIGHT [facility] AntonioBlood microcytes detection by light gmxytcptts1967-69-80 05:20:00* Test Item Value Reference Range Interpretation Comments Microcytosis (test code = 741-9) SLIGHT [facility] AntonioErythrocyte sedimentation rate by Westergren etyjqw9646-42-85 05:20:00* Test Item Value Reference Range Interpretation Comments Erythrocyte Sedimentation Rate (test code = 4537-7) 28 0- 13 [facility] C reactive protein measurement (mass/volume)2019-06-16 05:20:00* Test Item Value Reference Range Interpretation Comments C-Reactive Protein (test code = 1988-5) 5 0-10 Performed at: [facility] [id number] Director: Yamil Enriquez MD, Phone: [phone]'s Hospital of San AntonioUrine EJB5225-61-80 22:06:00* Test Item Value Reference Range Interpretation Comments Urine WBC (test code = 5821-4) 0-5 0-5 [facility] AntonioUrine UHG5255-58-41 22:06:00* Test Item Value Reference Range Interpretation Comments Urine RBC (test code = 51749-3) 0-5 0-5 [facility] AntonioUrine Kqmbuwce5731-88-14 22:06:00* Test Item Value Reference Range Interpretation Comments Urine Bacteria (test code = 87460-6) RARE NONE [facility] AntonioUrine Epithelial Tdcks1756-33-20 22:06:00 * Test Item Value Reference Range Interpretation Comments Urine Epithelial Cells (test code = 88939-4) FEW NONE [facility] AntonioUrine Wxvtd8330-25-58 22:00:00* Test Item Value Reference Range Interpretation Comments Urine Color (test code = 5778-6) YELLOW YELLOW [facility] AntonioUrine Zqwqrzw7473-92-84 22:00:00* Test Item Value Reference Range Interpretation Comments Urine Clarity (test code = 02705-1) CLEAR CLEAR [facility] AntonioUrine Specific Stwyhts0894-59-82 22:00:00 * Test Item Value Reference Range Interpretation Comments Urine Specific [place] (test code = 5811-5) 1.010 1.010-1.02 5 [facility] AntonioUrine jM5487-19-02 22:00:00* Test Item Value Reference Range Interpretation Comments Urine pH (test code = 30697-9) 6 5-7 [facility] AntonioUrine Leukocyte Ohxvzbcw6696-35-11 22:00:00* Test Item Value Reference Range Interpretation Comments Urine Leukocyte Esterase (test code = 77091-5) NEGATIVE NEGATIV E [facility] AntonioUrine Kqjggii1877-60-27 22:00:00* Test Item Value Reference Range Interpretation Comments Urine Nitrite (test code = 79306-1) NEGATIVE NEGATIVE [facility] AntonioUrine Iqjtsir5147-96-50 22:00:00* Test Item Value Reference Range Interpretation Comments Urine Protein (test code = 45386-7) 1+ NEGATIVE H [facility] AntonioUrine Glucose (UA)2019-06-15 22:00:00* Test Item Value Reference Range Interpretation Comments Urine Glucose (UA) (test code = 29565-4) NEGATIVE NEGATIVE [facility] AntonioUrine Lestgla7294-17-26 22:00:00* Test Item Value Reference Range Interpretation Comments Urine Ketones (test code = 98911-3) NEGATIVE NEGATIVE [facility] AntonioUrine Jtxmrtfysuob4848-11-49 22:00:00* Test Item Value Reference Range Interpretation Comments Urine Urobilinogen (test code = 07002-0) 0.2 0.2-1 [facility] AntonioUrine Blohlnfwk1656-60-53 22:00:00* Test Item Value Reference Range Interpretation Comments Urine Bilirubin (test code = 1977-8) NEGATIVE NEGATIVE [facility] AntonioUrine Zksbh3757-46-77 22:00:00* Test Item Value Reference Range Interpretation Comments Urine Blood (test code = 32459-3) [facility]GATIVE [facility] Fedlbuwj3768-48-00 08:57:00* Test Item Value Reference Range Interpretation Comments HIV (1&2) Antibody (test code = 42509-4) NON-REACTIVE NONREACTIVE [facility] P24 Nwrgvfx6776-54-84 08:57:00* Test Item Value Reference Range Interpretation Comments HIV P24 Antigen (test code = HIV P24 Antigen) NON-REACTIVE NONREACT VADIM [facility] (1&2) Xepvjxut1608-55-91 08:57:00* Test Item Value Reference Range Interpretation Comments HIV (1&2) Antibody (test code = 80496-4) NON-REACTIVE NONREACTIVE [facility] P24 Xkpgoyc1599-26-29 08:57:00* Test Item Value Reference Range Interpretation Comments HIV P24 Antigen (test code = HIV P24 Antigen) NON-REACTIVE NONREACT [facility]IM [facility] (1&2) Truewzkv5118-72-35 08:57:00* Test Item Value Reference Range Interpretation Comments HIV (1&2) Antibody (test code = 03563-4) NON-REACTIVE NONREACTIVE [facility] P24 Azzlwyf4133-80-54 08:57:00* Test Item Value Reference Range Interpretation Comments HIV P24 Antigen (test code = HIV P24 Antigen) NON-REACTIVE NONREACT VADIM [facility] AntonioHIV (1&2) Esbewgix9162-11-08 08:57:00* Test Item Value Reference Range Interpretation Comments HIV (1&2) Antibody (test code = 71328-0) NON-REACTIVE NONREACTIVE [facility] AntonioHI P24 Gwptcvn2170-35-65 08:57:00* Test Item Value Reference Range Interpretation Comments HIV P24 Antigen (test code = HIV P24 Antigen) NON-REACTIVE NONREACT VADIM [facility] AntonioNucleated Red Blood Ysiqz2859-71-38 08:05:00* Test Item Value Reference Range Interpretation Comments Nucleated Red Blood Cells (test code = 63083-6) 1 [facility] AntonioPoikilocytosis2019-10-04 08:05:00* Test Item Value Reference Range Interpretation Comments Poikilocytosis (test code = 779-9) SLIGHT [facility] AntonioMacrocytosis2019-10-04 08:05:00* Test Item Value Reference Range Interpretation Comments Macrocytosis (test code = 738-5) SLIGHT [facility] AntonioOvalocytes2019-10-04 08:05:00* Test Item Value Reference Range Interpretation Comments Ovalocytes (test code = 774-0) [facility]Nucle[facility] Red Blood Rybjt7227-76-41 08:05:00* Test Item Value Reference Range Interpretation Comments Nucleated Red Blood Cells (test code = 23288-7) 1 [facility] AntonioPoikilocytosis2019-10-04 08:05:00* Test Item Value Reference Range Interpretation Comments Poikilocytosis (test code = 779-9) SLIGHT [facility] AntonioMacrocytosis2019-10-04 08:05:00* Test Item Value Reference Range Interpretation Comments Macrocytosis (test code = 738-5) SLIGHT [facility] AntonioOvalocytes2019-10-04 08:05:00* Test Item Value Reference Range Interpretation Comments Ovalocytes (test code = 774-0) FEW [facility] AntonioNucleated Red Blood Jwrkh6322-61-37 08:05:00* Test Item Value Reference Range Interpretation Comments Nucleated Red Blood Cells (test code = 35370-8) 1 [facility] AntonioPoikilocytosis2019-10-04 08:05:00* Test Item Value Reference Range Interpretation Comments Poikilocytosis (test code = 779-9) SLIGHT [facility] AntonioMacrocytosis2019-10-04 08:05:00* Test Item Value Reference Range Interpretation Comments Macrocytosis (test code = 738-5) SLIGHT [facility] AntonioOvalocytes2019-10-04 08:05:00* Test Item Value Reference Range Interpretation Comments Ovalocytes (test code = 774-0) FEW [facility] AntonioNucleated Red Blood Rwbex0429-56-86 08:05:00* Test Item Value Reference Range Interpretation Comments Nucleated Red Blood Cells (test code = 45017-6) 1 [facility] AntonioPoikilocytosis2019-10-04 08:05:00* Test Item Value Reference Range Interpretation Comments Poikilocytosis (test code = 779-9) SLIGHT [facility] AntonioMacrocytosis2019-10-04 08:05:00* Test Item Value Reference Range Interpretation Comments Macrocytosis (test code = 738-5) SLIGHT [facility] AntonioOvalocytes2019-10-04 08:05:00* Test Item Value Reference Range Interpretation Comments Ovalocytes (test code = 774-0) FEW [facility] AntonioIron Fwovo4828-96-44 07:27:00* Test Item Value Reference Range Interpretation Comments Iron Level (test code = 2498-4) 64 65-175 L [facility] AntonioTotal Iron Binding Vgmhmtgb5275-89-12 07:27:00* Test Item Value Reference Range Interpretation Comments Total Iron Binding Capacity (test code = 2500-7) 277 261-4 78 [facility] AntonioPercent Iron Cvdbxmrzya9779-38-47 07:27:00* Test Item Value Reference Range Interpretation Comments Percent Iron Saturation (test code = 2502-3) 23 15-50 [facility] AntonioTransferrin2019-10-04 07:27:00* Test Item Value Reference Range Interpretation Comments Transferrin (test code = 3034-6) 198 174-364 [facility] AntonioFerritin2019-10-04 07:27:00* Test Item Value Reference Range Interpretation Comments Ferritin (test code = 2276-4) 269.38 21.81-274.66 [facility] AntonioIron Pyvxw2193-46-85 07:27:00* Test Item Value Reference Range Interpretation Comments Iron Level (test code = 2498-4) 64 65-175 L [facility] AntonioTotal Iron Binding Khrkfqoz4969-98-93 07:27:00* Test Item Value Reference Range Interpretation Comments Total Iron Binding Capacity (test code = 2500-7) 277 261-4 78 [facility] AntonioPercent Iron Zjcequdblk0436-80-64 07:27:00* Test Item Value Reference Range Interpretation Comments Percent Iron Saturation (test code = 2502-3) 23 15-50 [facility] AntonioTransferrin2019-10-04 07:27:00* Test Item Value Reference Range Interpretation Comments Transferrin (test code = 3034-6) 198 174-364 [facility] AntonioFerritin2019-10-04 07:27:00* Test Item Value Reference Range Interpretation Comments Ferritin (test code = 2276-4) 269.38 21.81-274.66 [facility] AntonioBlood nucleated erythrocytes count (number/volume)2019-06-15 04:55:00* Test Item Value Reference Range Interpretation Comments Nucleated Red Blood Cells (test code = 09387-6) 1 [facility] AntonioBlunited hospital poikilocytosis detection by light mknhqonamb1687-38-35 04:55:00* Test Item Value Reference Range Interpretation Comments Poikilocytosis (test code = 779-9) SLIGHT [facility] macrocytes detection by light gcthsdqxde6007-49-36 04:55:00* Test Item Value Reference Range Interpretation Comments Macrocytosis (test code = 738-5) SLIGHT [facility] AntonioBlood ovalocytes detection by light xzsstfbsfr8559-95-69 04:55:00* Test Item Value Reference Range Interpretation Comments Ovalocytes (test code = 774-0) FEW [facility] Hospital[facility] hepatitis B virus surface antibody assay by radioimmunoassay (units/volume)2019-06-15 04:55:00* Test Item Value Reference Range Interpretation Comments Hepatitis B Surface Antibody, Quant (test code = 5194-6) 241.1 Status of Immunity Anti-HBs Level Inconsistent with Immunity 0.0 - 9.9Consistent with Immunity >9.9[facility] or plasma hepatitis B virus core antibody detection by mikrzeijvtm3748-87-86 04:55:00* Test Item Value Reference Range Interpretation Comments Hepatitis B Core Total Antibody (test code = 89506-7) NEGATIVE Performed at: [facility] [id number] Director: Yamil Enriquez MD, Phone: [phone]'s Hospital of San AntonioHIV 1 and 2 antibody detection qualitative by rapid yaayjskjfay8118-47-40 04:55:00* Test Item Value Reference Range Interpretation Comments HIV (1&2) Antibody (test code = 23410-1) NON-REACTIVE NONREACTIVE [facility] AntonioFluoroscopic procedure less than one hour daekbhpk6967-52-94 04:55:00* Test Item Value Reference Range Interpretation Comments HIV P24 Antigen (test code = HIV P24 Antigen) NON-REACTIVE NONREACT VADIM [facility] Hospitalerum or plasma hepatitis B virus surface antigen detection by rezkxhqtzcp1881-37-56 04:55:00* Test Item Value Reference Range Interpretation Comments Hepatitis B Surface Antigen (test code = 5196-1) NEGATIVE [facility] Hospitaler[facility] hepatitis C virus antibody dryayndyh3163-17-35 04:55:00* Test Item Value Reference Range Interpretation Comments Hepatitis C Antibody (test code = 71438-8) <0.1 Reference Range: 0.0 - 0.9 s/co ratioNegative: < 0.8Indeterminate: 0.8 - 0.9Positive: > 0.9The CDC recommends that a positive HCV antibody resultbe followed up with a HCV Nucleic Acid Amplificationtest (392155).Testing performed by:[facility] [address] [id number]: Yamil Enriquez [facility]ererum nuclear antibody titer by qtwnsxlgmpnlfioafe2798-77-97 04:55:00* Test Item Value Reference Range Interpretation Comments Anti-Nuclear Antibody Screen (test code = 5048-4) Negative . Negative <1:80 Borderline 1:80 Positive > 1:80Performed at: [facility] [id number] Director: Yamil Enriquez MD, Phone: [phone] Hermann Greater Heights Hospitalerum or plasma rheumatoid factor measurement (units/volume)2019-06-15 04:55:00* Test Item Value Reference Range Interpretation Comments Rheumatoid Factor (test code = 32503-0) <10.0 0.0-13.9 Performed at: - [facility] [id number] Director: Yamil Enriquez MD, Phone: [phone]'s Hospital of San AntonioCreatine Kinase KE2755-01-79 20:36:00* Test Item Value Reference Range Interpretation Comments Creatine Kinase MB (test code = 61718-5) 3.50 0-5.0 [facility] AntonioTroponin E6029-39-81 20:36:00* Test Item Value Reference Range Interpretation Comments Troponin I (test code = UZL9398) 0.036 0-0.300 [facility] AntonioCreatine Kinase WP7345-39-70 20:36:00* Test Item Value Reference Range Interpretation Comments Creatine Kinase MB (test code = 88771-0) 3.50 0-5.0 [facility] AntonioCreatine Zrzgba5136-18-98 20:30:00* Test Item Value Reference Range Interpretation Comments Creatine Kinase (test code = 2157-6) 338 30-200 H [facility] AntonioCreatine Czbybu2986-55-34 20:30:00* Test Item Value Reference Range Interpretation Comments Creatine Kinase (test code = 2157-6) 338 30-200 H [facility] AntonioVitamin B12 Zpmbq3784-12-07 13:10:00* Test Item Value Reference Range Interpretation Comments Vitamin B12 Level (test code = 25922-4) 1977 213-816 H [facility] AntonioFolate2019-10-03 13:10:00* Test Item Value Reference Range Interpretation Comments Folate (test code = 2284-8) 38.3 7.0-15.4 H [facility] AntonioVitamin B12 Abiqu9203-81-69 13:10:00* Test Item Value Reference Range Interpretation Comments Vitamin B12 Level (test code = 04865-8) 1977 213-816 H [facility] AntonioFolate2019-10-03 13:10:00* Test Item Value Reference Range Interpretation Comments Folate (test code = 2284-8) 38.3 7.0-15.4 H [facility] AntonioVitamin B12 Hkckc4715-30-27 13:10:00* Test Item Value Reference Range Interpretation Comments Vitamin B12 Level (test code = 07884-1) 1977 213-816 H [facility] AntonioFolate2019-10-03 13:10:00* Test Item Value Reference Range Interpretation Comments Folate (test code = 2284-8) 38.3 7.0-15.4 H [facility] AntonioVitamin B12 Pzhac7601-93-60 13:10:00* Test Item Value Reference Range Interpretation Comments Vitamin B12 Level (test code = 53586-4) 1977 213-816 H [facility] AntonioFolate2019-10-03 13:10:00* Test Item Value Reference Range Interpretation Comments Folate (test code = 2284-8) 38.3 7.0-15.4 H [facility] AntonioThyroid Stimulating Hormone (TSH) 2019-06-14 11:39:00* Test Item Value Reference Range Interpretation Comments Thyroid Stimulating Hormone (TSH) (test code = 02604-5) 1.706 0.350-4.940 [facility] AntonioThyroid Stimulating Hormone (TSH) 2019-06-14 11:39:00* Test Item Value Reference Range Interpretation Comments Thyroid Stimulating Hormone (TSH) (test code = 78324-2) 1.706 0.350-4.940 [facility] AntonioThyroid Stimulating Hormone (TSH) 2019-06-14 11:39:00* Test Item Value Reference Range Interpretation Comments Thyroid Stimulating Hormone (TSH) (test code = 62491-2) 1.706 0.350-4.940 [facility] AntonioThyroid Stimulating Hormone (TSH) 2019-06-14 11:39:00* Test Item Value Reference Range Interpretation Comments Thyroid Stimulating Hormone (TSH) (test code = 52106-0) 1.706 0.350-4.940 [facility] AntonioCT ABDOMEN/PELVIS TA3317-71-83 11:26:[address] [place] [address] Patient Name: ALEX PETERS MR #: [id number] : 1935 Age/Sex: 84/M Req #: [id number] Adm Physician: BENITO GARCIA MD Ordered by: AVIS FLORES MD Report #: [id number] Location: MED/SURG Room/Bed: [facility] Procedure: [id number] CT/CT AB DOMEN/PELVIS WO Exam Date: 06/14/19 [...] COPY TO: AVIS FLORES MD CT CHEST HJ7371-38-75 11:26:00 [facility] [address] [address] Patient Name: ALEX PETERS MR #: [id number] : 1935 Age/Sex: 84/M Req #: [id number] Adm Physician: BENITO GARCIA MD Ordered by: AVIS FLORES MD Report #: [id number] Location: MED/SURG Room/Bed: [facility] Procedure: [id number] CT/CT CH EST WO Exam Date: 06/14/19 [...] PY TO: AVIS FLORES MD Hemoglobin A1c Zcdwjub2688-08-90 10:46:00* Test Item Value Reference Range Interpretation Comments Hemoglobin A1c Percent (test code = Hemoglobin A1c Percent) 5.6 4.0-7.0 [facility] AntonioHemoglobin A1c Eqvfizn2874-90-08 10:46:00 * Test Item Value Reference Range Interpretation Comments Hemoglobin A1c Percent (test code = Hemoglobin A1c Percent) 5.6 4.0-7.0 [facility] AntonioHemoglobin A1c Qwjxqyx7370-80-07 10:46:00 * Test Item Value Reference Range Interpretation Comments Hemoglobin A1c Percent (test code = Hemoglobin A1c Percent) 5.6 4.0-7.0 [facility] AntonioHemoglobin A1c Kmhziya0102-92-47 10:46:00 * Test Item Value Reference Range Interpretation Comments Hemoglobin A1c Percent (test code = Hemoglobin A1c Percent) 5.6 4.0-7.0 [facility] AntonioLactic Acid Qbkfw7219-92-49 06:10:00* Test Item Value Reference Range Interpretation Comments Lactic Acid Level (test code = Lactic Acid Level) 7.5 4.5- 19.8 [facility] AntonioFluoroscopic procedure less than one hour bdbrwbbc7201-70-40 05:30:00* Test Item Value Reference Range Interpretation Comments Hemoglobin A1c Percent (test code = Hemoglobin A1c Percent) 5.6 4.0-7.0 [facility] AntonioBlood cobalamin (vitamin B12) measurement (mass/volume)2019-06-14 05:30:00* Test Item Value Reference Range Interpretation Comments Vitamin B12 Level (test code = 59874-8) 1978 213-816 [facility] Hospitalerum or plasma folate measurement (mass/volume)2019-06-14 05:30:00* Test Item Value Reference Range Interpretation Comments Folate (test code = 2284-8) 38.3 7.0-15.4 [facility] Hospitalerum or plasma thyrotropin measurement by detection limit <= 0.005 miu/l (units/volume)2019-06-14 05:30:00* Test Item Value Reference Range Interpretation Comments Thyroid Stimulating Hormone (TSH) (test code = 17241-5) 1.706 0.350-4.940 [facility] AntonioReactive Dshbtcnzanm6748-66-07 19:40:00* Test Item Value Reference Range Interpretation Comments Reactive Lymphocytes (test code = 55609-2) 2 [facility] Hospitalchistocytes2019-10-02 19:40:00* Test Item Value Reference Range Interpretation Comments Schistocytes (test code = 800-3) X [facility] Hospitalchistocytes2019-10-02 19:40:00* Test Item Value Reference Range Interpretation Comments Schistocytes (test code = 800-3) X [facility] Hospitalchistocytes2019-10-02 19:40:00* Test Item Value Reference Range Interpretation Comments Schistocytes (test code = 800-3) X [facility] Hospitalchistocytes2019-10-02 19:40:00* Test Item Value Reference Range Interpretation Comments Schistocytes (test code = 800-3) X [facility]NOT [facility])2019-06-13 19:02:00 [facility] [address] [address] Patient Name: ALEX PETERS MR #: [id number] : 1935 Age/Sex: 84/M Req #: [id number] Adm Physician: Ordered by: JEREMIAH FLORES DO Report #: [id number] Location: ER Room/Bed: Procedure: [id number] DX/MARCIA ST SINGLE (NOT PORTABLE) Exam Date: [...] PM Dictated By: MANUEL URIAS MD, MD 1904 Trans cribed By: CALVIN on 06/13/19 635 COPY TO: JEREMIAH FLORES DO B- Type Natriuretic Gahzhmo9711-47-68 18:57:00* Test Item Value Reference Range Interpretation Comments B-Type Natriuretic Peptide (test code = 79979-0) 1225.8 0-100 H [facility] AntonioB-Type Natriuretic Lruwhrc0737-01-06 18:57:00* Test Item Value Reference Range Interpretation Comments B-Type Natriuretic Peptide (test code = 05996-2) 1225.8 0-100 H [facility] AntonioTotal Psegtdpyo3654-40-38 18:51:00* Test Item Value Reference Range Interpretation Comments Total Bilirubin (test code = 1975-2) 0.8 0.2-1.2 [facility] AntonioAspartate Amino Transf (AST/SGOT) 2019-06-13 18:51:00* Test Item Value Reference Range Interpretation Comments Aspartate Amino Transf (AST/SGOT) (test code = Aspartate Amino Transf (AST/SGOT)) 40 5-34 H [facility] AntonioAlanine Aminotransferase (ALT/SGPT) 2019-06-13 18:51:00* Test Item Value Reference Range Interpretation Comments Alanine Aminotransferase (ALT/SGPT) (test code = 1742-6) 18 0-55 [facility] Vqnnmey4231-11-70 18:51:00* Test Item Value Reference Range Interpretation Comments Total Protein (test code = 2885-2) 7.7 6.5-8.1 [facility] AntonioAlbumin2019-10-02 18:51:00* Test Item Value Reference Range Interpretation Comments Albumin (test code = 1751-7) 4.1 3.5-5.0 [facility] AntonioGlobulin2019-10-02 18:51:00* Test Item Value Reference Range Interpretation Comments Globulin (test code = 76827-8) 3.6 2.3-3.5 H [facility] AntonioAlbumin/Globulin Fwwqq4289-64-78 18:51:00 * Test Item Value Reference Range Interpretation Comments Albumin/Globulin Ratio (test code = 1759-0) 1.1 0.8-2.0 [facility] AntonioAlkaline Prhcvqgfspi2109-28-85 18:51:00* Test Item Value Reference Range Interpretation Comments Alkaline Phosphatase (test code = 6768-6) 71 40-150 [facility] schistocytes detection by light giexowdgvw6180-92-37 18:01:00* Test Item Value Reference Range Interpretation Comments Schistocytes (test code = 800-3) X [facility] AntonioBacterial blood fuzbghc6758-00-58 18:01:00* Test Item Value Reference Range Interpretation Comments Blood Culture (test code = 600-7) STAPH HOMINIS SUB HOMINIS [facility] Hospitalodium Cfwiy4198-45-02 06:23:00* Test Item Value Reference Range Interpretation Comments Sodium Level (test code = 2951-2) 135 136-145 L [facility] AntonioPotassium Cvuqn6349-02-20 06:23:00* Test Item Value Reference Range Interpretation Comments Potassium Level (test code = 2823-3) 3.4 3.5-5.1 L [facility] AntonioChloride Tfvhm5764-06-39 06:23:00* Test Item Value Reference Range Interpretation Comments Chloride Level (test code = 2075-0) 98 98-107 [facility] AntonioCarbon Dioxide Vmspd7612-03-27 06:23:00* Test Item Value Reference Range Interpretation Comments Carbon Dioxide Level (test code = 2028-9) 27 22-29 [facility] AntonioAnion Rdu5379-80-48 06:23:00* Test Item Value Reference Range Interpretation Comments Anion Gap (test code = 03086-7) 13.4 8-16 [facility] AntonioBlood Urea Lqjzwzcl3791-16-63 06:23:00* Test Item Value Reference Range Interpretation Comments Blood Urea Nitrogen (test code = 3094-0) 13 7-26 [facility] AntonioCreatinine2019-05-24 06:23:00* Test Item Value Reference Range Interpretation Comments Creatinine (test code = 2160-0) 1.08 0.72-1.25 [facility] AntonioBUN/Creatinine Ufylf6151-38-68 06:23:00* Test Item Value Reference Range Interpretation Comments BUN/Creatinine Ratio (test code = 3097-3) 12 6-25 [facility] San AntonioEstimat Glomerular Filtration Rate 2019-02-02 06:23:00* Test Item Value Reference Range Interpretation Comments Estimat Glomerular Filtration Rate (test code = 416984459) > 60 >60 Ranges were taken from the National Kidney Disease Education Program and the Mel[facility] formerly [facility] [employer] literature.Reference ranges:60 or greater: Vacvmz46-27 ( for 3 consecutive months): Chronic kidney disease 15 or less: Kidney failureChildren's Hospital of San AntonioGlucose Qgksh8114-52-37 06:23:00* Test Item Value Reference Range Interpretation Comments Glucose Level (test code = NLG9838) 122 74-118 H [facility] AntonioCalcium Wlmxw1937-03-19 06:23:00* Test Item Value Reference Range Interpretation Comments Calcium Level (test code = 84262-9) 9.5 8.4-10.2 [facility] AntonioWhite Blood Hxuir1623-54-07 06:00:00* Test Item Value Reference Range Interpretation Comments White Blood Count (test code = 6690-2) 3.09 4.8-10.8 L [facility] San AntonioRed Blood Hrqny5970-10-01 06:00:00* Test Item Value Reference Range Interpretation Comments Red Blood Count (test code = 789-8) 3.16 4.3-5.7 L [facility] AntonioHemoglobin2019-05-24 06:00:00* Test Item Value Reference Range Interpretation Comments Hemoglobin (test code = 17918-6) 9.0 14.0-18.0 L [facility] AntonioHematocrit2019-05-24 06:00:00* Test Item Value Reference Range Interpretation Comments Hematocrit (test code = 4544-3) 28.0 38.2-49.6 L [facility] San AntonioMean Corpuscular Cnehrt6285-11-46 06:00:00* Test Item Value Reference Range Interpretation Comments Mean Corpuscular Volume (test code = 787-2) 88.6 81-99 [facility] San AntonioMean Corpuscular Lcvhhwwppi3909-99-74 06:00:00* Test Item Value Reference Range Interpretation Comments Mean Corpuscular Hemoglobin (test code = 785-6) 28.5 28-32 [facility] San AntonioMean Corpuscular Hemoglobin Concent 2019-02-02 06:00:00* Test Item Value Reference Range Interpretation Comments Mean Corpuscular Hemoglobin Concent (test code = 786-4) 32.1 31-35 [facility] AntonioRed Cell Distribution Jrcwm8199-56-90 06:00:00* Test Item Value Reference Range Interpretation Comments Red Cell Distribution Width (test code = 56553-0) 19.5 11.7 -14.4 H [facility] San AntonioPlatelet Hcdvo9223-01-10 06:00:00* Test Item Value Reference Range Interpretation Comments Platelet Count (test code = 777-3) 468 140-360 H [facility] AntonioNeutrophils (%) (Auto)2019-02-02 06:00:00 * Test Item Value Reference Range Interpretation Comments Neutrophils (%) (Auto) (test code = 45753-3) 67.4 38.7-80.0 [facility] AntonioLymphocytes (%) (Auto)2019-02-02 06:00:00 * Test Item Value Reference Range Interpretation Comments Lymphocytes (%) (Auto) (test code = 736-9) 23.3 18.0-39.1 [facility] AntonioMonocytes (%) (Auto)2019-02-02 06:00:00* Test Item Value Reference Range Interpretation Comments Monocytes (%) (Auto) (test code = 5905-5) 8.4 4.4-11.3 [facility] AntonioEosinophils (%) (Auto)2019-02-02 06:00:00 * Test Item Value Reference Range Interpretation Comments Eosinophils (%) (Auto) (test code = 713-8) 0.3 0.0-6.0 [facility] AntonioBasophils (%) (Auto)2019-02-02 06:00:00* Test Item Value Reference Range Interpretation Comments Basophils (%) (Auto) (test code = 706-2) 0.0 0.0-1.0 [facility] AntonioIM GRANULOCYTES %2019-02-02 06:00:00* Test Item Value Reference Range Interpretation Comments IM GRANULOCYTES % (test code = IM GRANULOCYTES %) 0.6 0.0- 1.0 [facility] AntonioNeutrophils # (Auto)2019-02-02 06:00:00* Test Item Value Reference Range Interpretation Comments Neutrophils # (Auto) (test code = 751-8) 2.1 2.1-6.9 [facility] AntonioLymphocytes # (Auto)2019-02-02 06:00:00* Test Item Value Reference Range Interpretation Comments Lymphocytes # (Auto) (test code = 28516-8) 0.7 1.0-3.2 L [facility] AntonioMonocytes # (Auto)2019-02-02 06:00:00* Test Item Value Reference Range Interpretation Comments Monocytes # (Auto) (test code = 742-7) 0.3 0.2-0.8 [facility] AntonioEosinophils # (Auto)2019-02-02 06:00:00* Test Item Value Reference Range Interpretation Comments Eosinophils # (Auto) (test code = 711-2) 0.0 0.0-0.4 [facility] AntonioBasophils # (Auto)2019-02-02 06:00:00* Test Item Value Reference Range Interpretation Comments Basophils # (Auto) (test code = 704-7) 0.0 0.0-0.1 [facility] San AntonioAbsolute Immature Granulocyte (auto 2019-02-02 06:00:00* Test Item Value Reference Range Interpretation Comments Absolute Immature Granulocyte (auto (joão t code = Absolute Immature Granulocyte (auto) 0.02 0-0.1 [facility] AntonioCreatine Kinase RB7906-18-22 15:06:00* Test Item Value Reference Range Interpretation Comments Creatine Kinase MB (test code = 48082-8) 2.10 0-5.0 [facility] AntonioTroponin W0985-30-97 15:06:00* Test Item Value Reference Range Interpretation Comments Troponin I (test code = MLL1491) 0.018 0-0.300 [facility] AntonioCreatine Wcztos4558-10-22 14:54:00* Test Item Value Reference Range Interpretation Comments Creatine Kinase (test code = 2157-6) 440 30-200 H [facility] AntonioCHEST 2 OOHYZ4572-60-31 06:21:00 [facility] [address] [address] Patient Name: ALEX PETERS MR #: [id number] : 1935 Age/Sex: 83/M Req #: [id number] Adm Physician: AVIS FLORES MD Ordered by: JAIRON LAM MD Report #: [id number] Location: MED/SURG3 Room/Bed: [facility] Procedure: [id number] D X/CHEST 2 VIEWS Exam Date: Exam [...] TO: JAIRON LAM MD Differential Total Cells Ilqlygj6673-60-26 18:54:00* Test Item Value Reference Range Interpretation Comments Differential Total Cells Counted (test code = Differyvrose tial Total Cells Counted) 100 [facility] AntonioNeutrophils % (Manual)2019-01-31 18:54:00 * Test Item Value Reference Range Interpretation Comments Neutrophils % (Manual) (test code = 66187-0) 77 40-74 H [facility] AntonioLymphocytes % (Manual)2019-01-31 18:54:00 * Test Item Value Reference Range Interpretation Comments Lymphocytes % (Manual) (test code = 737-7) 17 19-48 L [facility] AntonioMonocytes % (Manual)2019-01-31 18:54:00* Test Item Value Reference Range Interpretation Comments Monocytes % (Manual) (test code = 744-3) 6 3.4-9.0 [facility] San AntonioD-Dimer Quantitative (PE/DVT)2019-01-31 18:26:00* Test Item Value Reference Range Interpretation Comments D-Dimer Quantitative (PE/DVT) (test code = 39183-5) 0.60 0. 00-0.45 H [facility] San AntonioB-Type Natriuretic Weqhdak6531-57-09 18:26:00* Test Item Value Reference Range Interpretation Comments B-Type Natriuretic Peptide (test code = 52470-1) 1378.5 0-100 H [facility] San AntonioD-Dimer Quantitative (PE/DVT)2019-01-31 18:26:00* Test Item Value Reference Range Interpretation Comments D-Dimer Quantitative (PE/DVT) (test code = 11700-4) 0.60 0. 00-0.45 H [facility] San AntonioD-Dimer Quantitative (PE/DVT)2019-01-31 18:26:00* Test Item Value Reference Range Interpretation Comments D-Dimer Quantitative (PE/DVT) (test code = 93499-0) 0.60 0. 00-0.45 H [facility] San AntonioD-Dimer Quantitative (PE/DVT)2019-01-31 18:26:00* Test Item Value Reference Range Interpretation Comments D-Dimer Quantitative (PE/DVT) (test code = 00372-2) 0.60 0. 00-0.45 H [facility] San AntonioD-Dimer Quantitative (PE/DVT)2019-01-31 18:26:00* Test Item Value Reference Range Interpretation Comments D-Dimer Quantitative (PE/DVT) (test code = 11854-9) 0.60 0. 00-0.45 H [facility] AntonioTotal Tfzdnkimr6478-68-86 18:19:00* Test Item Value Reference Range Interpretation Comments Total Bilirubin (test code = 1975-2) 0.6 0.2-1.2 [facility] AntonioAspartate Amino Transf (AST/SGOT) 2019-01-31 18:19:00* Test Item Value Reference Range Interpretation Comments Aspartate Amino Transf (AST/SGOT) (test code = Aspartate Amino Transf (AST/SGOT)) 35 5-34 H [facility] AntonioAlanine Aminotransferase (ALT/SGPT) 2019-01-31 18:19:00* Test Item Value Reference Range Interpretation Comments Alanine Aminotransferase (ALT/SGPT) (test code = 1742-6) 12 0-55 [facility] AntonioTotal Ytwvivd1262-30-87 18:19:00* Test Item Value Reference Range Interpretation Comments Total Protein (test code = 2885-2) 8.0 6.5-8.1 [facility] AntonioAlbumin2019-05-22 18:19:00* Test Item Value Reference Range Interpretation Comments Albumin (test code = 1751-7) 3.8 3.5-5.0 [facility] AntonioGlobulin2019-05-22 18:19:00* Test Item Value Reference Range Interpretation Comments Globulin (test code = 56098-3) 4.2 2.3-3.5 H [facility] AntonioAlbumin/Globulin Djoko5438-36-26 18:19:00 * Test Item Value Reference Range Interpretation Comments Albumin/Globulin Ratio (test code = 1759-0) 0.9 0.8-2.0 [facility] AntonioAlkaline Kauckspfczs7703-78-90 18:19:00* Test Item Value Reference Range Interpretation Comments Alkaline Phosphatase (test code = 6768-6) 90 40-150 [facility] CenterCHES 2 NBTDY1395-18-19 18:11:00 [facility] [address] [address] Patient Name: ALEX PETERS MR #: [id number] : 1935 Age/Sex: 83/M Req #: [id number] Adm Physician: Ordered by: JAIRON LAM MD Report #: [id number] Location: ER Room/Bed: Procedure: [id number] D X/CHEST 2 VIEWS Exam Date: 01/31/19 [...] 6:12 PM Dictated By: TINY WALLS MD 1811 Tra nscribed By: CALVIN on 01/31/191811 COPY TO: JAIRON LAM MD Bedside Mcmfwdz4068-76-48 07:09:00* Test Item Value Reference Range Interpretation Comments Bedside Glucose (test code = 76985-7) 113 70-120 Meter ID: [id number]'s Hospital of San AntonioBedside Glucose 2018-12-15 07:09:00* Test Item Value Reference Range Interpretation Comments Bedside Glucose (test code = 93910-9) 113 70-120 Meter ID: [id number]'s Hospital of San AntonioVitamin B12 Level 2018-12-14 07:19:00* Test Item Value Reference Range Interpretation Comments Vitamin B12 Level (test code = 97924-5) 1320 213-816 H [facility] AntonioFolate2019-04-04 07:19:00* Test Item Value Reference Range Interpretation Comments Folate (test code = 2284-8) 29.3 7.0-15.4 H [facility] AntonioVitamin B12 Vuyjp9065-77-68 07:19:00* Test Item Value Reference Range Interpretation Comments Vitamin B12 Level (test code = 38050-4) 1320 213-816 H [facility] AntonioFolate2019-04-04 07:19:00* Test Item Value Reference Range Interpretation Comments Folate (test code = 2284-8) 29.3 7.0-15.4 H [facility] AntonioThyroid Stimulating Hormone (TSH) 2018-12-14 06:50:00* Test Item Value Reference Range Interpretation Comments Thyroid Stimulating Hormone (TSH) (test code = 92343-5) 1.487 0.350-4.940 [facility] AntonioThyroid Stimulating Hormone (TSH) 2018-12-14 06:50:00* Test Item Value Reference Range Interpretation Comments Thyroid Stimulating Hormone (TSH) (test code = 98031-7) 1.487 0.350-4.940 [facility] AntonioIron Jfrqy4194-25-77 06:30:00* Test Item Value Reference Range Interpretation Comments Iron Level (test code = 2498-4) 57 65-175 L [facility] AntonioTotal Iron Binding Jodknuih0811-47-04 06:30:00* Test Item Value Reference Range Interpretation Comments Total Iron Binding Capacity (test code = 2500-7) 288 261-4 78 [facility] AntonioPercent Iron Zdmngfegdw9001-98-71 06:30:00* Test Item Value Reference Range Interpretation Comments Percent Iron Saturation (test code = 2502-3) 20 15-50 [facility] AntonioTransferrin2019-04-04 06:30:00* Test Item Value Reference Range Interpretation Comments Transferrin (test code = 3034-6) 206 174-364 [facility] AntonioTriglycerides Shobh7419-12-87 06:30:00* Test Item Value Reference Range Interpretation Comments Triglycerides Level (test code = 2571-8) 71 0-149 [facility] AntonioCholesterol Aepkr9918-80-73 06:30:00* Test Item Value Reference Range Interpretation Comments Cholesterol Level (test code = 2093-3) 110 0-199 Less than 200 mg/dL Low Mngu376 - 239 mg/dL Borderline Knwg666 m g/dl and greater High Risk [facility] AntonioLDL Deboomjlhzw3622-19-31 06:30:00* Test Item Value Reference Range Interpretation Comments LDL Cholesterol (test code = 2089-1) 48 60-130 L [facility] AntonioHDL Ugsnmqbwoip9495-52-35 06:30:00* Test Item Value Reference Range Interpretation Comments HDL Cholesterol (test code = 2085-9) 48 40-60 [facility] AntonioCholesterol/HDL Ntzvc2852-64-67 06:30:00 * Test Item Value Reference Range Interpretation Comments Cholesterol/HDL Ratio (test code = 9830-1) 2.3 3.9-4.7 L [facility] AntonioIron Kxgza8198-70-11 06:30:00* Test Item Value Reference Range Interpretation Comments Iron Level (test code = 2498-4) 57 65-175 L [facility] AntonioTotal Iron Binding Zbwguoyh1842-29-29 06:30:00* Test Item Value Reference Range Interpretation Comments Total Iron Binding Capacity (test code = 2500-7) 288 261-4 78 [facility] AntonioPercent Iron Nzayiozlic3767-49-78 06:30:00* Test Item Value Reference Range Interpretation Comments Percent Iron Saturation (test code = 2502-3) 20 15-50 [facility] AntonioTransferrin2019-04-04 06:30:00* Test Item Value Reference Range Interpretation Comments Transferrin (test code = 3034-6) 206 174-364 [facility] AntonioTriglycerides Yiogz2940-59-91 06:30:00* Test Item Value Reference Range Interpretation Comments Triglycerides Level (test code = 2571-8) 71 0-149 [facility] AntonioCholesterol Dfmkz1579-93-31 06:30:00* Test Item Value Reference Range Interpretation Comments Cholesterol Level (test code = 2093-3) 110 0-199 Less than 200 mg/dL Low Gcva395 - 239 mg/dL Borderline Sysu660 m g/dl and greater High Risk [facility] AntonioLDL Vbkouunyqah6932-73-46 06:30:00* Test Item Value Reference Range Interpretation Comments LDL Cholesterol (test code = 2089-1) 48 60-130 L [facility] AntonioHDL Tjembzqxsln9496-15-88 06:30:00* Test Item Value Reference Range Interpretation Comments HDL Cholesterol (test code = 2085-9) 48 40-60 [facility] AntonioCholesterol/HDL Zxasu5280-89-80 06:30:00 * Test Item Value Reference Range Interpretation Comments Cholesterol/HDL Ratio (test code = 9830-1) 2.3 3.9-4.7 L [facility] AntonioTriglycerides Uxkls6568-89-86 06:30:00* Test Item Value Reference Range Interpretation Comments Triglycerides Level (test code = 2571-8) 71 0-149 [facility] AntonioCholesterol Ndiaq9755-27-71 06:30:00* Test Item Value Reference Range Interpretation Comments Cholesterol Level (test code = 2093-3) 110 0-199 Less than 200 mg/dL Low Birb315 - 239 mg/dL Borderline Dvcb835 m g/dl and greater High Risk [facility] AntonioLDL Lphvbimjzhh1729-77-96 06:30:00* Test Item Value Reference Range Interpretation Comments LDL Cholesterol (test code = 2089-1) 48 60-130 L [facility] Jnmvkhqeepr2068-28-41 06:30:00* Test Item Value Reference Range Interpretation Comments HDL Cholesterol (test code = 2085-9) 48 40-60 [facility] AntonioCholesterol/HDL Ctsle6803-97-69 06:30:00 * Test Item Value Reference Range Interpretation Comments Cholesterol/HDL Ratio (test code = 9830-1) 2.3 3.9-4.7 L [facility] AntonioTriglycerides Fcocs2036-06-53 06:30:00* Test Item Value Reference Range Interpretation Comments Triglycerides Level (test code = 2571-8) 71 0-149 [facility] AntonioCholesterol Zaoxj0985-68-89 06:30:00* Test Item Value Reference Range Interpretation Comments Cholesterol Level (test code = 2093-3) 110 0-199 Less than 200 mg/dL Low Tomy914 - 239 mg/dL Borderline Npir553 m g/dl and greater High Risk [facility] Bszohbalzbt9317-99-90 06:30:00* Test Item Value Reference Range Interpretation Comments LDL Cholesterol (test code = 2089-1) 48 60-130 L [facility] Edngdajsgzs5203-79-47 06:30:00* Test Item Value Reference Range Interpretation Comments HDL Cholesterol (test code = 2085-9) 48 40-60 [facility] AntonioCholesterol/HDL Exchj5223-59-15 06:30:00 * Test Item Value Reference Range Interpretation Comments Cholesterol/HDL Ratio (test code = 9830-1) 2.3 3.9-4.7 L [facility] AntonioTriglycerides Lcuyt0019-34-76 06:30:00* Test Item Value Reference Range Interpretation Comments Triglycerides Level (test code = 2571-8) 71 0-149 [facility] AntonioCholesterol Ysglc2454-73-40 06:30:00* Test Item Value Reference Range Interpretation Comments Cholesterol Level (test code = 2093-3) 110 0-199 Less than 200 mg/dL Low Jjot885 - 239 mg/dL Borderline Atwm917 m g/dl and greater High Risk [facility] AntonioLDL Xmiennzkrrd1938-54-87 06:30:00* Test Item Value Reference Range Interpretation Comments LDL Cholesterol (test code = 2089-1) 48 60-130 L [facility] AntonioHDL Eoleqgmrudv4024-02-78 06:30:00* Test Item Value Reference Range Interpretation Comments HDL Cholesterol (test code = 2085-9) 48 40-60 [facility] AntonioCholesterol/HDL Xtptl4292-76-34 06:30:00 * Test Item Value Reference Range Interpretation Comments Cholesterol/HDL Ratio (test code = 9830-1) 2.3 3.9-4.7 L [facility] AntonioHemoglobin A1c Hvnpuyq1179-01-65 06:09:00 * Test Item Value Reference Range Interpretation Comments Hemoglobin A1c Percent (test code = Hemoglobin A1c Percent) 5.5 4.0-7.0 [facility] AntonioHemoglobin A1c Hqdcalo2157-92-01 06:09:00 * Test Item Value Reference Range Interpretation Comments Hemoglobin A1c Percent (test code = Hemoglobin A1c Percent) 5.5 4.0-7.0 [facility] Kkqia9800-26-50 06:05:00* Test Item Value Reference Range Interpretation Comments Sodium Level (test code = 2951-2) 136 136-145 [facility] AntonioPotassium Pynpi7016-51-90 06:05:00* Test Item Value Reference Range Interpretation Comments Potassium Level (test code = 2823-3) 3.1 3.5-5.1 L [facility] AntonioChloride Zhjhv3813-95-23 06:05:00* Test Item Value Reference Range Interpretation Comments Chloride Level (test code = 2075-0) 97 98-107 L [facility] AntonioCarbon Dioxide Ebpte9366-87-56 06:05:00* Test Item Value Reference Range Interpretation Comments Carbon Dioxide Level (test code = 2028-9) 29 22-29 [facility] AntonioAnion Uxg9224-00-21 06:05:00* Test Item Value Reference Range Interpretation Comments Anion Gap (test code = 33463-1) 13.1 8-16 [facility] AntonioBlood Urea Rcfxvara9848-23-36 06:05:00* Test Item Value Reference Range Interpretation Comments Blood Urea Nitrogen (test code = 3094-0) 17 7-26 [facility] AntonioCreatinine2019-04-04 06:05:00* Test Item Value Reference Range Interpretation Comments Creatinine (test code = 2160-0) 1.01 0.72-1.25 [facility] AntonioBUN/Creatinine Chfsg9868-72-33 06:05:00* Test Item Value Reference Range Interpretation Comments BUN/Creatinine Ratio (test code = 3097-3) 17 03-06 [facility] AntonioEstimat Glomerular Filtration Rate 2018-12-14 06:05:00* Test Item Value Reference Range Interpretation Comments Estimat Glomerular Filtration Rate (test code = 691201809) > 60 >60 Ranges were taken from the National Kidney Disease Education Program and the [facility] literature.Reference ranges:60 or greater: Zdhsuz07-73 ( for 3 consecutive months): Chronic kidney disease 15 or less: Kidney failureChildren's Hospital of San AntonioGlucose Zttux4667-03-16 06:05:00* Test Item Value Reference Range Interpretation Comments Glucose Level (test code = KZN2379) 121 74-118 H [facility] AntonioCalcium Efuvg0470-53-46 06:05:00* Test Item Value Reference Range Interpretation Comments Calcium Level (test code = 33781-9) 9.9 8.4-10.2 [facility] AntonioWhite Blood Qeaye3630-01-88 05:58:00* Test Item Value Reference Range Interpretation Comments White Blood Count (test code = 6690-2) 3.47 4.8-10.8 L [facility] AntonioRed Blood Vtsur3885-10-43 05:58:00* Test Item Value Reference Range Interpretation Comments Red Blood Count (test code = 789-8) 3.37 4.3-5.7 L [facility] AntonioHemoglobin2019-04-04 05:58:00* Test Item Value Reference Range Interpretation Comments Hemoglobin (test code = 32944-4) 9.8 14.0-18.0 L [facility] AntonioHematocrit2019-04-04 05:58:00* Test Item Value Reference Range Interpretation Comments Hematocrit (test code = 4544-3) 29.8 38.2-49.6 L [facility] AntonioMean Corpuscular Lwevlh9206-78-22 05:58:00* Test Item Value Reference Range Interpretation Comments Mean Corpuscular Volume (test code = 787-2) 88.4 81-99 [facility] AntonioMean Corpuscular Svolrixntp1389-60-70 05:58:00* Test Item Value Reference Range Interpretation Comments Mean Corpuscular Hemoglobin (test code = 785-6) 29.1 28-32 [facility] AntonioMean Corpuscular Hemoglobin Concent 2018-12-14 05:58:00* Test Item Value Reference Range Interpretation Comments Mean Corpuscular Hemoglobin Concent (test code = 786-4) 32.9 31-35 [facility] AntonioRed Cell Distribution Vnqtg7399-20-56 05:58:00* Test Item Value Reference Range Interpretation Comments Red Cell Distribution Width (test code = 61972-6) 19.0 11.7 -14.4 H [facility] AntonioPlatelet Bqzut5563-86-79 05:58:00* Test Item Value Reference Range Interpretation Comments Platelet Count (test code = 777-3) 441 140-360 H [facility] AntonioNeutrophils (%) (Auto)2018-12-14 05:58:00 * Test Item Value Reference Range Interpretation Comments Neutrophils (%) (Auto) (test code = 56626-7) 68.2 38.7-80.0 [facility] AntonioLymphocytes (%) (Auto)2018-12-14 05:58:00 * Test Item Value Reference Range Interpretation Comments Lymphocytes (%) (Auto) (test code = 736-9) 25.1 18.0-39.1 [facility] AntonioMonocytes (%) (Auto)2018-12-14 05:58:00* Test Item Value Reference Range Interpretation Comments Monocytes (%) (Auto) (test code = 5905-5) 5.8 4.4-11.3 [facility] AntonioEosinophils (%) (Auto)2018-12-14 05:58:00 * Test Item Value Reference Range Interpretation Comments Eosinophils (%) (Auto) (test code = 713-8) 0.3 0.0-6.0 [facility] AntonioBasophils (%) (Auto)2018-12-14 05:58:00* Test Item Value Reference Range Interpretation Comments Basophils (%) (Auto) (test code = 706-2) 0.0 0.0-1.0 [facility] AntonioIM GRANULOCYTES %2018-12-14 05:58:00* Test Item Value Reference Range Interpretation Comments IM GRANULOCYTES % (test code = IM GRANULOCYTES %) 0.6 0.0- 1.0 [facility] AntonioNeutrophils # (Auto)2018-12-14 05:58:00* Test Item Value Reference Range Interpretation Comments Neutrophils # (Auto) (test code = 751-8) 2.4 2.1-6.9 [facility] AntonioLymphocytes # (Auto)2018-12-14 05:58:00* Test Item Value Reference Range Interpretation Comments Lymphocytes # (Auto) (test code = 69411-3) 0.9 1.0-3.2 L [facility] AntonioMonocytes # (Auto)2018-12-14 05:58:00* Test Item Value Reference Range Interpretation Comments Monocytes # (Auto) (test code = 742-7) 0.2 0.2-0.8 [facility] AntonioEosinophils # (Auto)2018-12-14 05:58:00* Test Item Value Reference Range Interpretation Comments Eosinophils # (Auto) (test code = 711-2) 0.0 0.0-0.4 [facility] AntonioBasophils # (Auto)2018-12-14 05:58:00* Test Item Value Reference Range Interpretation Comments Basophils # (Auto) (test code = 704-7) 0.0 0.0-0.1 [facility] AntonioAbsolute Immature Granulocyte (auto 2018-12-14 05:58:00* Test Item Value Reference Range Interpretation Comments Absolute Immature Granulocyte (auto (joão t code = Absolute Immature Granulocyte (auto) 0.02 0-0.1 [facility] AntonioCreatine Owbznh0643-73-77 22:18:00* Test Item Value Reference Range Interpretation Comments Creatine Kinase (test code = 2157-6) 543 30-200 H [facility] AntonioCreatine Kinase DD2603-98-36 22:18:00* Test Item Value Reference Range Interpretation Comments Creatine Kinase MB (test code = 23273-6) 3.30 0-5.0 [facility] AntonioTroponin W7462-11-09 22:18:00* Test Item Value Reference Range Interpretation Comments Troponin I (test code = UHR0083) 0.041 0-0.300 [facility] AntonioUrine ZWA0537-96-47 07:11:00* Test Item Value Reference Range Interpretation Comments Urine WBC (test code = 5821-4) NONE 0-5 [facility] AntonioUrine PLE8858-95-83 07:11:00* Test Item Value Reference Range Interpretation Comments Urine RBC (test code = 92541-3) NONE 0-5 [facility] AntonioUrine Oetrbmti8288-51-94 07:11:00* Test Item Value Reference Range Interpretation Comments Urine Bacteria (test code = 66406-1) RARE NONE [facility] AntonioUrine Epithelial Jhyqv5642-39-72 07:11:00 * Test Item Value Reference Range Interpretation Comments Urine Epithelial Cells (test code = 09066-2) RARE NONE [facility] AntonioUrine Transitional Epithelial Cells 2018-12-13 07:11:00* Test Item Value Reference Range Interpretation Comments Urine Transitional Epithelial Cells (test code = 8249-5) RARE NONE [facility] AntonioUrine FXH7885-83-01 07:11:00* Test Item Value Reference Range Interpretation Comments Urine WBC (test code = 5821-4) NONE 0-5 [facility] AntonioUrine YTY5843-83-57 07:11:00* Test Item Value Reference Range Interpretation Comments Urine RBC (test code = 28981-1) NONE 0-5 [facility] AntonioUrine Mzbqypqr6956-74-10 07:11:00* Test Item Value Reference Range Interpretation Comments Urine Bacteria (test code = 92278-1) RARE NONE [facility] AntonioUrine Epithelial Hulqq4313-34-31 07:11:00 * Test Item Value Reference Range Interpretation Comments Urine Epithelial Cells (test code = 61884-2) RARE NONE [facility] AntonioUrine Transitional Epithelial Cells 2018-12-13 07:11:00* Test Item Value Reference Range Interpretation Comments Urine Transitional Epithelial Cells (test code = 8249-5) RARE NONE [facility] Transitional Epithelial Cells 2018-12-13 07:11:00* Test Item Value Reference Range Interpretation Comments Urine Transitional Epithelial Cells (test code = 8249-5) RARE NONE [facility] Transitional Epithelial Cells 2018-12-13 07:11:00* Test Item Value Reference Range Interpretation Comments Urine Transitional Epithelial Cells (test code = 8249-5) RARE NONE [facility] AntonioUrine Transitional Epithelial Cells 2018-12-13 07:11:00* Test Item Value Reference Range Interpretation Comments Urine Transitional Epithelial Cells (test code = 8249-5) RARE NONE [facility] AntonioUrine Ozgpz2703-34-29 06:35:00* Test Item Value Reference Range Interpretation Comments Urine Color (test code = 5778-6) YELLOW YELLOW [facility] AntonioUrine Srrljdw4703-02-50 06:35:00* Test Item Value Reference Range Interpretation Comments Urine Clarity (test code = 88606-9) CLEAR CLEAR [facility] AntonioUrine Specific Jetembb7439-30-54 06:35:00 * Test Item Value Reference Range Interpretation Comments Urine Specific [place] (test code = 5811-5) 1.010 1.010-1.02 5 [facility] AntonioUrine uL9084-11-96 06:35:00* Test Item Value Reference Range Interpretation Comments Urine pH (test code = 26878-0) 6.5 5-7 [facility] AntonioUrine Leukocyte Hgrdbeab0311-83-88 06:35:00* Test Item Value Reference Range Interpretation Comments Urine Leukocyte Esterase (test code = 5799-2) NEGATIVE NEGATIVE [facility] AntonioUrine Ciufkda2850-35-15 06:35:00* Test Item Value Reference Range Interpretation Comments Urine Nitrite (test code = 81206-7) NEGATIVE NEGATIVE [facility] AntonioUrine Akwmvyy5612-03-67 06:35:00* Test Item Value Reference Range Interpretation Comments Urine Protein (test code = 5804-0) TRACE NEGATIVE H [facility] AntonioUrine Glucose (UA)2018-12-13 06:35:00* Test Item Value Reference Range Interpretation Comments Urine Glucose (UA) (test code = 2349-9) NEGATIVE NEGATIVE [facility] AntonioUrine Xeqwohe9095-17-01 06:35:00* Test Item Value Reference Range Interpretation Comments Urine Ketones (test code = 23665-9) NEGATIVE NEGATIVE [facility] AntonioUrine Ivituaxppqsi7900-85-42 06:35:00* Test Item Value Reference Range Interpretation Comments Urine Urobilinogen (test code = 50494-6) 0.2 0.2-1 [facility] AntonioUrine Bxifzurft4424-28-21 06:35:00* Test Item Value Reference Range Interpretation Comments Urine Bilirubin (test code = 1978-6) NEGATIVE NEGATIVE [facility] AntonioUrine Npmuz5329-39-67 06:35:00* Test Item Value Reference Range Interpretation Comments Urine Blood (test code = 38495-8) NEGATIVE NEGATIVE [facility] AntonioUrine Ceriq5914-68-75 06:35:00* Test Item Value Reference Range Interpretation Comments Urine Color (test code = 5778-6) YELLOW YELLOW [facility] AntonioUrine Wiotvjs4209-73-20 06:35:00* Test Item Value Reference Range Interpretation Comments Urine Clarity (test code = 46248-4) CLEAR CLEAR [facility] AntonioUrine Specific Zpykswq0220-09-84 06:35:00 * Test Item Value Reference Range Interpretation Comments Urine Specific [place] (test code = 5811-5) 1.010 1.010-1.02 5 [facility] AntonioUrine pO9418-82-97 06:35:00* Test Item Value Reference Range Interpretation Comments Urine pH (test code = 49948-2) 6.5 5-7 [facility] AntonioUrine Leukocyte Edfexqfr4049-98-52 06:35:00* Test Item Value Reference Range Interpretation Comments Urine Leukocyte Esterase (test code = 5799-2) NEGATIVE NEGATIVE [facility] AntonioUrine Zxrwfnu1322-12-85 06:35:00* Test Item Value Reference Range Interpretation Comments Urine Nitrite (test code = 20968-1) NEGATIVE NEGATIVE [facility] AntonioUrine Ybtbacp5866-05-58 06:35:00* Test Item Value Reference Range Interpretation Comments Urine Protein (test code = 5804-0) TRACE NEGATIVE H [facility] Glucose (UA)2018-12-13 06:35:00* Test Item Value Reference Range Interpretation Comments Urine Glucose (UA) (test code = 2349-9) NEGATIVE NEGATIVE [facility] AntonioUrine Cxwtifv9868-41-47 06:35:00* Test Item Value Reference Range Interpretation Comments Urine Ketones (test code = 02822-5) NEGATIVE NEGATIVE [facility] Nnrehzrcptnq7630-03-68 06:35:00* Test Item Value Reference Range Interpretation Comments Urine Urobilinogen (test code = 40474-8) 0.2 0.2-1 [facility] AntonioUrine Mzcxqlkgy9673-68-48 06:35:00* Test Item Value Reference Range Interpretation Comments Urine Bilirubin (test code = 1978-6) NEGATIVE NEGATIVE [facility] AntonioUrine Elcyn1779-52-60 06:35:00* Test Item Value Reference Range Interpretation Comments Urine Blood (test code = 33783-7) NEGATIVE NEGATIVE [facility] AntonioTotal Jufysthqt8960-73-32 04:47:00* Test Item Value Reference Range Interpretation Comments Total Bilirubin (test code = 1975-2) 0.7 0.2-1.2 [facility] AntonioAspartate Amino Transf (AST/SGOT) 2018-12-13 04:47:00* Test Item Value Reference Range Interpretation Comments Aspartate Amino Transf (AST/SGOT) (test code = Aspartate Amino Transf (AST/SGOT)) 36 5-34 H [facility] AntonioAlanine Aminotransferase (ALT/SGPT) 2018-12-13 04:47:00* Test Item Value Reference Range Interpretation Comments Alanine Aminotransferase (ALT/SGPT) (test code = 1742-6) 16 0-55 [facility] AntonioTotal Fsmevjm3488-10-92 04:47:00* Test Item Value Reference Range Interpretation Comments Total Protein (test code = 2885-2) 7.6 6.5-8.1 [facility] AntonioAlbumin2019-04-03 04:47:00* Test Item Value Reference Range Interpretation Comments Albumin (test code = 1751-7) 4.1 3.5-5.0 [facility] AntonioGlobulin2019-04-03 04:47:00* Test Item Value Reference Range Interpretation Comments Globulin (test code = 86623-6) 3.5 2.3-3.5 [facility] AntonioAlbumin/Globulin Zjlbc8345-19-33 04:47:00 * Test Item Value Reference Range Interpretation Comments Albumin/Globulin Ratio (test code = 1759-0) 1.2 0.8-2.0 [facility] AntonioAlkaline Ostqffjpycb3388-75-55 04:47:00* Test Item Value Reference Range Interpretation Comments Alkaline Phosphatase (test code = 6768-6) 70 40-150 [facility] AntonioLipase2019-04-03 04:47:00* Test Item Value Reference Range Interpretation Comments Lipase (test code = 3040-3) 30 78 [facility] AntonioLipase2019-04-03 04:47:00* Test Item Value Reference Range Interpretation Comments Lipase (test code = 3040-3) [facility] AntonioLipase2019-04-03 04:47:00* Test Item Value Reference Range Interpretation Comments Lipase (test code = 3040-3) [facility] AntonioLipase2019-04-03 04:47:00* Test Item Value Reference Range Interpretation Comments Lipase (test code = 3040-3) [facility] AntonioLipase2019-04-03 04:47:00* Test Item Value Reference Range Interpretation Comments Lipase (test code = 3040-3) [facility] AntonioB-Type Natriuretic Wnfxgsn6167-61-12 04:46:00* Test Item Value Reference Range Interpretation Comments B-Type Natriuretic Peptide (test code = 79391-7) 1630.0 0-100 H [facility] AntonioCHEST SINGLE (PORTABLE)2018-12-13 04:40:00 [facility] [address] [address] Patient Name: ALEX PETERS MR #: [id number] : 1935 Age/Sex: 83/M Req #: [id number] Adm Physician: Ordered by: MALINA ANGELA MD Report #: [id number] Location: ER Room/Bed: Procedure: [id number] DX/ CHEST SINGLE (PORTABLE) Exam Date: 12/13/18 [...] 4:41 AM Dictated By: MAGI GTZ MD 0441 T ranscribed By: CALVIN on 12/13/18 0441 COPY TO: MALINA ANGELA MD ZHFWWIAFHQGV7330-96-08 08:45:0012.5[facility] BrzdrlsQYZYLPTCREYY3989-68-93 08:45:0071[facility] TdkkxtzMZOWSLLHMEXC1139-39-38 08:45:0016[facility] PUADDSWIHHVP6022-95-54 08:45:000.99[facility] RzyuozeYXNSSVUMZBJO3872-20-04 08:45:65780Qboegzub PzggsijHUFAZHQIUGUM4995-29-63 08:45:35291Yewdgfxn Talha KHAWFBNSNGYY2600-05-73 08:45:003.5[facility] VuihybwRSATRLBEFCOL4046-95-99 08:45:0098[facility] IajjzclGVOCCOJXRWZC8399-49-53 08:45:0026[facility] [place] [facility] EUKYFSVEUXUC5013-10-95 08:45:008.7[facility] HjozoyfQTSOVSIDPJ4830-78-92 08:45:00 3.2[facility] YqoakonAZEKSALBTC8167-87-40 08:45:000.4[facility] HermannHEMATOLOGY 2016-11-22 08:45:001.8[facility] QktndqvETADKDPUYZ1268-51-45 08:45:00Normal (11/22/16 3:45 AM)[facility] ImncxmeJZOSXPCPSZ7154-40-33 08:45:00Normal (11/22/16 3:45 AM)[facility] CsazneaUWPTZXTTDS6957-73-29 08:45:0059.2[facility] [place] VCYPVUKTGU6309-25-74 08:45:0032.0[facility] KfybggfGFXEOSABSH7593-73-48 08:45:00 0.3[facility] NdctjfjAIWMHKQCSE8158-87-08 08:45:008.1[facility] HermannHEMATOLOGY 2016-11-22 08:45:000.4[facility] LcfqueqHECHXXWHTY8611-61-66 08:45:0034.4[facility] MgbopmvQALQAPRIOZ6233-32-74 08:45:00* Test Item Value Reference Range Interpretation Comments MCH (test code = MCH) 28.0 pg 27.0-31.0 [facility] ZirvitxMROEJGPDKF8115-19-07 08:45:0015.2[facility] HermannHEMATOLOGY 2016-11-22 08:45:70248Ygtvhzsn ClsdvhhSGNDAZCEPV1703-60-86 08:45:008.4[facility] ZlwkrivJECGOGNVNL6816-61-01 08:45:0035.9[facility] IlsoaxkKFOISJWWPT4094-42-36 08:45:0081.3[facility] HsimylyMOREQOFHVE3314-38-02 08:45:0012.3[facility] [place] JAKZGVQIMA6654-47-10 08:45:004.41[facility] PgcxodzDWJIIOMQUU6172-64-70 08:45:00 5.5[facility] HermannCHEM WMRBM5265-99-61 10:17:0076[facility] HermannCHEM PANEL 2016-11-21 10:17:0027[facility] HermannCHEM BIZHE1623-23-80 10:17:0098[facility] HermannCHEM YMPZZ4326-22-08 10:17:0012.7[facility] HermannCHEM HULUI0316-83-55 10:17:008.5[facility] HermannCHEM RZPKE6849-06-70 10:17:93822[place] HermannCHEM GIJKG0640-99-19 10:17:0013[facility] HermannCHEM RVNLD9267-82-76 10:17:000.94 [facility]annCHEM ZMYVG8633-94-54 10:17:003.7[facility] HermannCHEM PANEL 2016-11-21 10:17:33850Iwzprnds BzpqgbiXXZLHKOCZE7863-58-97 10:17:0012.8[facility] SltulldYTWNYAXHLN0309-24-24 10:17:0037.4[facility] VgzbjtbZYHNDIDAPL6742-53-42 10:17:0082.2[facility] PujghdpDFKFLBCOQW8279-29-86 10:17:00* Test Item Value Reference Range Interpretation Comments MCH (test code = MCH) 28.1 pg 27.0-31.0 [facility] IirsmecUAQCZXYTMT7220 10:17:004.55[facility] HermannHEMATOLOGY 2016-11-21 10:17:003.5[facility] MxnnvtgKSQNRSXITS5312-84-87 10:17:63822Nvdikrrg YimahzxJYSSXEJOWZ8404-49-79 10:17:0015.5[facility] OerfncfJJMTMPRJUN6185-68-60 10:17:008.7[facility] KarwrlrMVDAKKJOYK5852-71-22 10:17:0034.1[facility] [place] [facility] YJYCRIDVVW6265-36-40 10:17:002.0[facility] GlmohxyFJZHIUXSDF6753-77-80 10:17:009.8 [facility] MklwgtjOLCNSRNQVW6460-05-63 10:17:000.2[facility] HermannHEMATOLOGY 2016-11-21 10:17:000.9[facility] RrkffutXTVDQRATUT5642-01-53 10:17:0032.7[facility] MdgnkayPHZOWVMQNQ9632-48-33 10:17:0056.4[facility] RgquezmCGWIAJCULH0976-72-85 10:17:000.3[facility] NvgjizsZMHMBMZRTF7417-75-49 10:17:001.1[facility] GWQSPNJZEELH6988-34-89 22:13:0028[facility] AuymnmkFORUVXHIBGCQ7110-77-49 22:13:00 8.9[facility] JwfnnfsVNVSYCIFMUMS9733-36-40 22:13:0012.8[facility] GSFRFNQAEZMH7371-02-89 22:13:0056[facility] ZkzrvfdOBCQCUUDKXDG1499-58-11 22:13:00 96[facility] UfisteaFFOSHIOAEVHU5953-08-33 22:13:87242Usfaylao HermannELECTROLYTES 2016-11-20 22:13:003.8[facility] QkrtghzSUUGGXZUJDXZ3787-19-43 22:13:11655Ctydsaas SrxihuzJVGTVHCNLBBJ2595-65-53 22:13:0014[facility] NfvlcswTPIGGKRXERWE4033-47-80 22:13:001.20[facility] HermannCHEM QCQQY0172-93-48 11:10:172.4[facility] HermannCHEM AEGXA4630-56-56 04:26:002.6[facility] HermannCHEM HIKDM6805-87-01 04:26:002.1 [facility] HermannCARDIAC EDNJTNQ3033-53-36 23:16:85763Syciwvpx HermannCARDIAC FMTZPEE3339-77-33 23:16:00<0.02[facility] HermannCARDIAC BQPPKXU8430-41-43 23:16:000.8[facility] HermannCARDIAC WBADXZX9347-18-49 23:16:003.3[facility] [place] [facility] CHEM XMZTV7758-55-04 23:16:002.9[facility] HermannCHEM GSEXS7806-73-73 23:16:002.2 [facility]annURINE AND BQKQS7557-34-28 19:27:00Negative (11/19/16 1:27 PM) [facility] KWHBG3855-41-89 19:27:00Negative (11/19/16 1:27 PM) [facility] UGZOB9003-63-38 19:27:00Negative *NA*(11/19/16 1:27 PM) [facility] SPYSE2884-68-50 19:27:00Negative (11/19/16 1:27 PM) [facility] ZRTFY8048-87-24 19:27:006.0[facility]ann[facility] AND FBMKR8271-51-59 19:27:00Clear (11/19/16 1:27 PM)[facility] AND STOOL 2016-11-19 19:27:001.011[facility]annUR[facility] AND WXSNG5144-48-33 19:27:001 [facility] VRZRB5616-22-54 19:27:00<1[facility] HermannHEMATOLOGY 2016-11-19 19:20:000.3[facility] PmdpglfFJPTJTQZQE8791-59-02 19:20:001.1[facility] YwshtyzCZTNGVKEGT5661-00-26 19:20:003.4[facility] BlcvxjkJMXIFSTPCP5077-20-29 19:20:000.1[facility] VdibudtQHFZMLSPHJ0457-19-14 19:20:005.3[facility] [place] LSWMWSVIYM7301-73-68 19:20:0023.7[facility] IiarhpmKKIQEQRJQY5906-53-14 19:20:00 0.8[facility] CrcjyvoLAILBFCHXC6325-28-04 19:20:0070.1[facility] HermannHEMATOLOGY 2016-11-19 19:20:00Normal (11/19/16 1:20 PM)[facility] YfrjpbbULQLHKCMBU0462-79-62 19:20:00Normal (11/19/16 1:20 PM)[facility] ZkfnxnwOYOPLBAQKP9057-12-11 19:20:00 81.1[facility] QyajincXKDZGZDCVO3656-22-38 19:20:0013.1[facility] HermannHEMATOLOGY 2016-11-19 19:20:0015.1[facility] RkyynhoZOBKFWTSBY7357-89-72 19:20:0034.6[facility] QemcqjrCGHNJPSFWJ8111-37-64 19:20:00* Test Item Value Reference Range Interpretation Comments MCH (test code = MCH) 28.1 pg 27.0-31.0 [facility] ZhpmajkPPENCOGRAP9880-17-90 19:20:87851Uffhfnka HermannHEMATOLOGY 2016-11-19 19:20:0037.8[facility] VskegdaQGBIDYWMCP0447-37-53 19:20:008.8[facility] ErcqjgbNBOBNOQLFF8085-82-93 19:20:004.8[facility] TnnijotRIQQQMPFKB8505-46-92 19:20:004.66[facility] HermannCARDIAC ZSLZHHK4447-18-73 19:11:22219Evqqgtsy HermannCARDIAC YZCTHMV4688-74-09 19:11:004.0[facility] HermannCARDIAC ENZYMES 2016-11-19 19:11:001.0[facility] HermannCARDIAC ORQWVSL6579-16-01 19:11:00<0.02 [facility] HermannCARDIAC IKESNJQ1804-37-41 19:11:70760Gyxjwxoz HermannCHEM PANEL 2016-11-19 19:11:000.7[facility] HermannCHEM BUILZ5648-94-79 19:11:003.5[facility] HermannCHEM PKELH6581-93-90 19:11:003.7[facility] HermannCHEM DHTKV3107-38-52 19:11:001.1[facility] HermannCHEM MUKUX3733-67-55 19:11:007.2[facility] HermannCHEM OMFHH0462-72-60 19:11:0033[facility] HermannCHEM XENCY9263-17-60 19:11:75408 [facility]annCHEM DAREA6807-39-36 19:11:0025[facility] HermannCHEM PANEL 2016-11-19 19:11:0012[facility] HermannCHEM FUHJQ5520-07-39 19:11:002.0[facility] HmsixrnOIDFKILLWP0236-35-31 19:11:00* Test Item Value Reference Range Interpretation Comments PTT (test code = PTT) 32.0 s 22.9-35.8 [facility] ZdmqwdeLICYWJYWUD7280-97-18 19:11:00* Test Item Value Reference Range Interpretation Comments PT (test code = PT) 13.8 s 12.0-14.7 [facility] BjxhbqjUHYYTTRPZY8558-55-97 19:11:001.04[facility] HermannSPECIAL FSKCFWQVF0149-77-53 20:49:006.3[facility] HermannCHEM QBUOM5099-46-68 08:35:0067 [facility] HermannCHEM NYJJZ2505-20-55 08:35:76110Lsnlklfj HermannCHEM PANEL 2016-02-12 08:35:009.1[facility] HermannCHEM SAQUU2973-30-87 08:35:0026[facility] HermannCHEM ILMFP6167-60-43 08:35:0022[facility] HermannCHEM STKEU2312-52-47 08:35:003.8[facility] HermannCHEM AGUIK6614-24-92 08:35:31257Mmpilidp HermannCHEM PHUQQ6770-29-62 08:35:001.05[facility] HermannCHEM VRVGS3825-37-02 08:35:35060 [facility]annCHEM CGZNP7759-06-65 08:35:0011.8[facility] HermannCHEM PANEL 2016-02-12 08:35:002.7[facility] HermannCHEM MLKFX9912-61-49 08:35:002.3[facility] AktismuQURKCDMFJD6691-04-76 08:35:003.9[facility] GdwykutHQFFKTSCCT3690-29-20 08:35:000.5[facility] GolxsfcAMJPEQHRPN0580-82-28 08:35:000.1[facility] XTMFCDZMJQ7480-28-51 08:35:0069.2[facility] QloksdlDWWTJRRNVG7452-55-25 08:35:00 1.2[facility] WnrwaolDWVWINWPSX1768-22-54 08:35:000.5[facility] HermannHEMATOLOGY 2016-02-12 08:35:009.0[facility] RpvcntsKCHCDMLOOY3103-42-64 08:35:0021.2[facility] HlxniiwGBPNBEKQBS0947-68-35 08:35:005.6[facility] QealdglMJDBULWZYL1391-80-35 08:35:009.7[facility] GavlxchENXYSEVBHC2849-84-48 08:35:0016.2[facility] EZYTSTDONJ7624-03-34 08:35:60364Bkvcliaa ZvrvgknWJXDRPHTHT9178-78-01 08:35:00* Test Item Value Reference Range Interpretation Comments MCH (test code = MCH) 26.5 pg 27.0-31.0 [facility] EldwzrsSYZULTGKQU5205-07-46 08:35:0032.8[facility] HermannHEMATOLOGY 2016-02-12 08:35:0080.7[facility] NpxcstiFBACPDGTZP3240-61-67 08:35:0011.9[facility] TgdoeraKKSVGEWETT8961-01-72 08:35:0036.1[facility] CfjwqvfQHUGGWRJGD7303-05-61 08:35:004.48[facility] HermannCHEM TKOZG4046-96-69 15:54:002.5[facility] HermannCHEM MWNMJ9955-53-09 15:54:004.9[facility] HermannCHEM RDCQO9025-12-18 15:54:003.2 [facility]annCHEM VENNQ8621-86-85 15:54:008.1[facility] HermannCHEM PANEL 2016-02-11 15:54:000.7[facility] HermannCHEM SQQST2968-30-38 15:54:0042[facility] HermannCHEM JCCDZ6544-61-82 15:54:14775Jobebgkz HermannCHEM TZOOW2679-99-37 15:54:0049[facility] HermannCHEM QITIW0062-88-45 15:54:000.5[facility] HermannCHEM LUDAL5537-27-19 15:54:000.6[facility] HermannCHEM EINCQ3928-88-63 15:54:000.1 [facility]annCHEM GECXD1141-50-76 15:54:002.4[facility] HermannCHEM PANEL 2016-02-11 15:54:0060[facility] HermannCHEM DNPSH5599-43-08 15:54:009.6[facility] HermannCHEM IEEQU1721-55-82 15:54:0024[facility] HermannCHEM SQNXP3571-24-57 15:54:0011.5[facility] HermannCHEM KVPFP5222-55-78 15:54:001.14[facility] CHEM BZXIZ1431-99-67 15:54:0021[facility] HermannCHEM YKOOX4396-29-56 15:54:35191 [facility]annCHEM QMSKR2088-51-83 15:54:004.5[facility] HermannCHEM PANEL 2016-02-11 15:54:24766Xzgpuilr HermannCHEM TAPVT3712-78-08 15:54:69692Pjgwhdur AinyawdAKTCUMWLLE6751-80-98 15:54:00Normal (02/11/16 10:54 AM)[facility] NCYERTSVND5685-20-49 15:54:0069.3[facility] XqumdvbAPWOEZLUBD5951-10-49 15:54:00 Normal (02/11/16 10:54 AM)[facility] QybkwebGSPTGBNZHR5310-55-67 15:54:00Moderate *ABN*(02/11/16 10:54 AM)[facility] AoqclzsIJDVHDCMXP5405-97-86 15:54:000.5[facility] ZnzlhjgQDTLVUUGDR6187-86-57 15:54:001.4[facility] KoidfiaKUBFPMQUEW6092-54-38 15:54:004.4[facility] SwgfsrnRIAPBMOWFX3806-22-14 15:54:000.3[facility] [place] NVDODLJDQB1821-32-42 15:54:007.1[facility] YkhilrsAECRUEFYVK5830-81-60 15:54:00 22.8[facility] NdvqswcTGRBFHUBGB7765-10-76 15:54:000.5[facility] HermannHEMATOLOGY 2016-02-11 15:54:00* Test Item Value Reference Range Interpretation Comments MCH (test code = MCH) 27.3 pg 27.0-31.0 [facility] YrszhabSUBDAHTRZV7200-83-92 15:54:0040.7[facility] HermannHEMATOLOGY 2016-02-11 15:54:0013.8[facility] RlygargCGKGPIFIHT1114-29-72 15:54:0010.1[facility] FicevuiMTDGBFTVLD3580-60-53 15:54:04200Owkualre KyckuecQFVHHRLOIU1156-17-48 15:54:0016.5[facility] CljuscfKBWLBUWRTD5428-95-02 15:54:0033.8[facility] PVCLWYRNDP8602-34-70 15:54:0080.6[facility] XjcbmigACRVGUUGJL3004-03-28 15:54:00 6.4[facility] JpoipbzVWAQSNITDE7531-05-05 15:54:005.05[facility] HermannIMMUNOLOGY 2016-02-11 15:54:0017.0[facility] HermannCHEM SBAFD0055-39-76 09:20:002.3[facility] ZgrhegkQOATQFKHGX0082-93-62 20:09:000.96[facility] OyprwqfLVQMINNHMA6545-93-47 20:09:00* Test Item Value Reference Range Interpretation Comments PT (test code = PT) 13.1 s 12.0-14.7 [facility] VhtzgvuXEKQCXXTPDLHG1743-18-58 18:18:31339Gosziwkk HermannENDOCRINOLOGY 2016-02-08 18:18:0016.1[facility] QnbkbcnVZCURLVPPPDG6005-11-21 13:35:229.7 [facility] OugpeazMIYYVOBZIMJW5937-74-74 13:35:2281[facility] HermannELECTROLYTES 2016-02-08 13:35:60844Mxmkyfzn UdxqyrlHJZNVGLJRJVL0968-21-75 13:35:28335Irxuzjnt PoulbwxRZLSFFERFWPU4916-01-01 13:35:223.7[facility] IuqfiypLBRINZYCTZTR6926-77-19 13:35:2228[facility] TvhwaypHOUNYATMDOMD6712-69-50 13:35:229.1[facility] WUHRLSOOKDSS5662-17-19 13:35:220.88[facility] HjvxoooJPHIWDFHEKVE4081-61-50 13:35:45388Rybddpwt RourfkhVDDHYARKYRHQ9407-00-93 13:35:2213[facility] [place] [facility] YEBCEERBUJ6431-43-19 13:35:2266.5[facility] VhpxrwoJBVYDGTUEW1640-05-08 13:35:22 Normal (02/08/16 8:35 AM)[facility] BovhtyxXZKRLCXPZM3302-44-32 13:35:22Moderate *ABN*(02/08/16 8:35 AM)[facility] BftqmtyKEXEYUDXQG9815-21-29 13:35:220.5[facility] JjchjejONEGBZFRDZ6947-86-08 13:35:2212.5[facility] FmhhhihJVCRXFLLQO5327-34-48 13:35:2220.4[facility] UsblwvhYZUGEZEYVJ9444-11-89 13:35:220.8[facility] [place] QGPHKFDAVA4012-15-64 13:35:222.6[facility] IivukoqOQKKQTIODA1644-06-66 13:35:220.5 [facility] IbellnfFKYMNAMZZG5056-82-70 13:35:220.1[facility] HermannHEMATOLOGY 2016-02-08 13:35:2216.4[facility] EoeqozcTQIAWAMXNO3506-52-74 13:35:2233.2[facility] RwtdlxsDPWRBLWVWR6611-22-83 13:35:22* Test Item Value Reference Range Interpretation Comments MCH (test code = MCH) 26.9 pg 27.0-31.0 [facility] PfdclugSJGZDOPWVU8189-03-57 13:35:2280.9[facility] HermannHEMATOLOGY 2016-02-08 13:35:20778Msakayrg XpsjdeaFRWFHTDWTH0104-00-09 13:35:229.1[facility] AxdpoviSKVUPDXORT4172-98-88 13:35:2237.3[facility] VftcttbNTLALKAYRA4431-42-06 13:35:2212.4[facility] IplyszgBRYJXDVUWQ0465-26-34 13:35:224.61[facility] QQJBZJUNCR8601-91-40 13:35:223.9[facility] HermannCHEM EEWCX9297-12-37 13:00:00 0.19[facility] YicbbfyPJGTGUNZSI2464-12-46 00:30:000.7[facility] HermannCHEM PANEL 2016-02-07 03:15:002.6[facility] HermannCARDIAC OMXFVRY5097-63-92 04:40:001.3 [facility]annCARDIAC AUGEKHP6622-19-90 04:40:000.4[facility] HermannCARDIAC PRTLLGJ8687-70-05 04:40:000.02[facility] HermannCARDIAC EPGENZX4199-76-26 04:40:00 346[facility] HermannCARDIAC WXWDFAM8560-85-74 22:35:000.3[facility] HermannCARDIAC ONXDIDG3897-61-83 22:35:001.3[facility] HermannCARDIAC FYIBWRQ3421-65-32 22:35:00< 0.02[facility] HermannCARDIAC WJEGQBP0851-33-44 22:35:43349Yztkeyfc Talha CSVFKCYTYJ4227-02-26 22:35:000.3[facility] HermannCARDIAC DMYCFFV8676-76-95 10:15:94435Kxbozekp HermannCHEM RKFZF9860-33-22 10:15:000.83[facility] HermannCHEM XDAES6986-16-51 09:31:0011[facility] HermannCHEM ZDMTQ9372-13-42 09:31:000.7 [facility]annCHEM TCKDK8478-36-24 09:31:004.0[facility] HermannCHEM PANEL 2016-02-03 09:31:0028[facility] HermannCHEM TIHCX4643-84-72 09:31:001.1[facility] HermannCHEM LDNUA7124-08-92 09:31:62104Eohwyjla HermannCHEM LZBEM1439-41-79 09:31:0015[facility] HermannCHEM DEMXD8233-07-74 09:31:002.9[facility] HermannCHEM DYNQB0510-09-47 09:31:006.9[facility] KygsbodZJAMNGQABH9989-56-54 09:31:000.2 [facility] QgwygraORECHZAEDQ6530-24-80 00:36:00* Test Item Value Reference Range Interpretation Comments PTT (test code = PTT) 36.9 s 22.9-35.8 [facility] HermannSPECIAL RMJWYHHDZ6103-26-00 00:36:0043.6[facility] HermannSPECIAL QAKGCZZPU9775-09-81 00:36:0019.16[facility] HermannSPECIAL LGKATSOXD9297-17-07 00:36:0043.9[facility] HermannCHEM YZUWZ1156-65-39 19:06:002.0[facility] HermannCHEM DYMNH2636-13-95 19:06:000.40[facility]annURINE AND ZWLUS4049-13-79 19:06:00 Trace *ABN*(02/02/16 2:06 PM)[facility]annUR[facility] AND RIVHR8972-23-94 19:06:00* Test Item Value Reference Range Interpretation Comments UA pH (test code = UA pH) 6.5 1 5.0-8.0 [facility]UR[facility] AND PQDPS7361-46-25 19:06:00Small *ABN*(02/02/16 2:06 PM) [facility] AND VJMAL7887-67-46 19:06:00Large *ABN*(02/02/16 2:06 PM) [facility] BWNVN5791-07-98 19:06:001.0[facility]UR[facility] AND HNBKC3519-66-99 19:06:00Positive *ABN*(02/02/16 2:06 PM)[facility]UR[facility] AND JNHNF0196-75-76 19:06:00* Test Item Value Reference Range Interpretation Comments UA Spec Grav (test code = UA Spec Grav) 1.020 1 [facility]UR[facility] AND HZZJW9860-91-96 19:06:00Orange *ABN*(02/02/16 2:06 PM) [facility] AND YRHBF4557-60-79 19:06:00Cloudy *ABN*(02/02/16 2:06 PM) [facility] AND ARHTX7417-96-88 19:06:00Performed (02/02/16 2:06 PM) [facility]annCHEM MNJZE1264-25-45 16:32:478.3[facility] HermannCHEM PANEL 2016-02-02 16:32:473.8[facility] HermannCHEM FQOLM1073-32-33 16:32:4718[facility] HermannCHEM STLIL9294-37-89 16:32:56805Hunxkhvo HermannCHEM LJQGL4349-09-19 16:32:471.5[facility] HermannCHEM ARYUM4099-50-00 16:32:4725[facility] HermannCHEM WISGE8352-73-08 16:32:4710[facility] HermannCHEM TWMPX5366-94-38 16:32:474.5 [facility] HermannCHEM COLOT1297-85-26 16:32:470.8[facility] HermannCARDIAC ENZYMES 2016-02-02 16:32:18515Bkevhsuo HermannCARDIAC RQURYWR1936-60-20 16:32:000.4 [facility]annCARDIAC KVNXUTJ7568-09-64 16:32:002.0[facility] HermannCARDIAC IJHRFXC5073-38-78 16:32:00<0.02[facility] FmtfaloOHAGSIVNKV5483-02-64 16:00:000.1 [facility]
[2020-04-17 10:16] VITALS: BP 126/55
--- NOTE | 2020-04-17 10:42 | NUR ---
Recvd patient from ER. AAOx3, ON TELE, ROOM AIR, Not in any distress, assisted him to bed, call light in reach. bed alarm ON
[2020-04-17] MEDS ORDERED: SODIUM CHLORIDE 0.9% 250ML 250 ML ONE (11:09)
[2020-04-17 12:00] VITALS: BP 113/63
[2020-04-17] MEDS ORDERED: ACETAMINOPHEN/CODEINE 300MG - 30MG TAB PO PRN (15:45)
[2020-04-17] MEDS ORDERED: DEXTROSE 50% SYRINGE 50 ML IV PRN ×2 (15:45)
--- NOTE | 2020-04-17 15:47 | NUR ---
CALLED CONSULT FR DR CARSON , TALKED TO HIM, HE SAID HE WILL SEE THE PATIENT
--- NOTE | 2020-04-17 16:05 | NUR ---
Patient Temp was 103, notified Dr Paz, new orders recvd for CT ABD/PELV WO, BLD CULTURE AND VELCAZL140HP Q6PRN( since pharmacy doesn't have IV tylenol)
[2020-04-17] MEDS: ACETAMINOPHEN 325 MG TAB PO PRN ×2 (16:17→21:38)
[2020-04-17] MEDS: SODIUM CHLORIDE 0.9% 1000ML 1,000 ML IV SCH (16:20)
[2020-04-17] MEDS ORDERED: INSULIN LISPRO 100 UNIT/1 ML 3ML VIAL SQ SCH (16:30)
[2020-04-17] MEDS: INSULIN REGULAR, HUMAN 100 UNIT/1 ML 3ML VIAL SQ SCH ×2 (16:30→22:14)
[2020-04-17 16:43] LABS: BASOPHILS % 1.3 % (0.0-1.0); HEMATOCRIT 27.6 % (38.2-49.6); HEMOGLOBIN 8.4 g/dL (14.0-18.0); LYMPHOCYTES # (AUTO) 0.2 (1.0-3.2); LYMPHOCYTES % 29.3 % (18.0-39.1); MEAN CORPUSCULAR HEMOGLOBIN 26.7 pg (28-32); MEAN CORPUSCULAR HGB CONC 30.4 g/dL (31-35); MEAN CORPUSCULAR VOLUME 87.6 fL (81-99); MONOCYTES # (AUTO) 0.1 (0.2-0.8); MONOCYTES % 9.3 % (4.4-11.3); NEUTROPHILS # (AUTO) 0.5 (2.1-6.9); NEUTROPHILS % 60.1 % (38.7-80.0); PLATELET COUNT 223 x10e3/uL (140-360); RED BLOOD COUNT 3.15 x10e6/uL (4.3-5.7); RED CELL DISTRIBUTION WIDTH 21.9 % (11.7-14.4)
--- NOTE | 2020-04-17 16:45 | Consultation ---
DATE OF CONSULTATION: HISTORY OF PRESENT ILLNESS: Mr. Peters is an 85-year-old, who comes in from a snf. He was recently in [facility] because of urgency, frequency with one day fever and chills. The patient is not a good source of information. He was admitted. His COVID is still pending. His sodium 138, potassium 4.1. His creatinine 1.50. His liver enzyme, AST 36. His white count is 1, hemoglobin of 8.9, and platelets 275. Blood culture is still pending. He is currently on Zosyn. PHYSICAL EXAMINATION: GENERAL: He is currently alert, confused. VITAL SIGNS: Stable, currently afebrile. HEENT: He is not icteric. NECK: Supple. CHEST: Clear. HEART: No murmur. ABDOMEN: Soft. IMPRESSION AND PLAN: Urinary tract infection, sepsis, leukopenia, altered mental status, underlying dementia, patchy bibasilar opacities, and rule out coronavirus disease-19. Agree with droplet isolation. We will put him on meropenem 1 g IV q.8h. Await blood cultures and urine cultures. Check daily CBC. Check daily chemistry panel. Acute kidney injury probably chronic kidney disease. Concern about dementia. Code status need to be discussed with the family. MD IRINA Mendoza/NATALIE /[id number]
[2020-04-17] MEDS ORDERED: NON-FORMULARY MEDICATION (Atenolol 25 MG) PO SCH (17:00)
[2020-04-17] MEDS ORDERED: GLIPIZIDE 5 MG TAB PO SCH (17:00)
[2020-04-17 17:04] LABS: CREATINE KINASE MB 0.6 ng/mL (0-5.0)
--- NOTE | 2020-04-17 17:07 | NUR ---
Dr Orourke aware about WBC results
[2020-04-17] MEDS: ATENOLOL 50 MG TAB PO SCH (17:25)
[2020-04-17 17:27] LABS: ANION GAP 19.9 mmol/L (8-16); CALCIUM 9.6 mg/dL (8.4-10.2); CREATININE, SERUM 1.6 mg/dL (0.72-1.25); POTASSIUM 3.9 mmol/L (3.5-5.1)
[2020-04-17] MEDS ORDERED: ACETAMINOPHEN 1000 MG/100 ML IV SCH (18:00)
--- NOTE | 2020-04-17 18:15 | Consultation ---
DATE OF CONSULTATION: Pulmonary Critical Care consultation CHIEF COMPLAINT: Cough and dyspnea. HISTORY OF PRESENT ILLNESS: The patient is an 85-year-old man. He required hospitalization at 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 He required blood transfusions. He was also seen by GI and had a negative GI workup. He was recently hospitalized at [facility] with dyspnea. Apparently, he had COVID-19 infection as well as an x-ray that showed bilateral effusions. He now complains of worsening dyspnea. He has some fevers. He notes fatigue. He does not complain of cough. PAST MEDICAL HISTORY: 1. Myelofibrosis with chronic anemia. 2. Chronic systolic congestive heart failure. 3. Diabetes. 4. Hypertension. 5. Myelodysplastic syndrome with anemia and leukopenia. PAST SURGICAL HISTORY: 1. History of prior GI evaluation with negative EGD and colonoscopy. 2. Status post cholecystectomy. 3. Status post knee surgery. 4. History of shoulder surgery. ALLERGIES: THE PATIENT IS ALLERGIC TO CIPROFLOXACIN. SOCIAL HISTORY: The patient is not an active smoker or drinker. FAMILY HISTORY: Family history is noncontributory. REVIEW OF SYSTEMS: The patient does not complain of headache. There are some fevers. He is not having any chest pain. He does have some dyspnea. He has no abdominal pain. He has no nausea or vomiting. He has no leg edema. PHYSICAL EXAMINATION: VITAL SIGNS: The blood pressure is 123/58 and saturation is 95%, and the pulse is 102. The T-max is a 103.1. HEENT: No facial swelling or erythema. The oropharynx normal. LYMPHATIC: No submandibular, cervical, or supraclavicular adenopathy. CARDIAC: Regular rate and rhythm with normal S1, S2. LUNGS: Auscultation of lungs reveals rhonchorous breath sounds bilaterally. There is no wheezing. ABDOMEN: Soft, nontender. There is no rebound or guarding. EXTREMITIES: No leg edema or calf tenderness. There is no cyanosis or clubbing. SKIN: No rashes. NEUROLOGICAL: No focal abnormalities. LABORATORY DATA: White blood cell count is 1 and hemoglobin is 8.9. The platelet count is 225. The BUN to creatinine ratio is 23 to 1.50. Other electrolytes are within normal limits. The BNP is 751. RADIOGRAPHIC DATA: Chest x-ray shows bibasilar opacities, possibly representing viral pneumonia. IMPRESSION: 1. Severe leukopenia and neutropenia with associated fever. 2. Anemia secondary to myelodysplastic syndrome. 3. Chronic systolic congestive heart failure. 4. Acute on chronic renal insufficiency. 5. Diabetes. PLAN: 1. The patient will be pancultured and started on broad-spectrum antibiotics. 2. Neutropenic precautions. 3. Await COVID-19 testing. 4. Continue current diabetic regimen. 5. Tylenol as needed. 6. Continue to monitor blood counts. Mikel Aguilar MD [facility]/MOD[facility] /[id number]
--- NOTE | 2020-04-17 18:46 | Diagnostic Imaging Report ---
EXAMINATION: CT of the abdomen and pelvis without contrast. TECHNIQUE: Helical CT images of the abdomen and pelvis were performed from the lung bases to the lesser trochanters. No intravenous contrast was given per renal stone protocol. Coronal and sagittal reformatted images were obtained. Dose modulation, iterative reconstruction, and/or weight based adjustment of the mA/kV was utilized to reduce the radiation dose to as low as reasonably achievable. COMPARISON: None. CLINICAL HISTORY:Urinary retention, fever DISCUSSION: ABSENCE OF INTRAVENOUS CONTRAST DECREASES SENSITIVITY FOR DETECTION OF FOCAL LESIONS AND VASCULAR PATHOLOGY. ABDOMEN/PELVIS: LOWER THORAX: Small right pleural effusion with adjacent atelectasis. Coronary artery calcifications. HEPATOBILIARY:Cholecystectomy. Punctate hepatic calcifications. SPLEEN: Splenic calcifications. PANCREAS: No focal masses or ductal dilatation. ADRENALS: No adrenal nodules. KIDNEYS/URETERS: No hydronephrosis, stones, or solid mass lesions. PELVIC ORGANS/BLADDER: Bladder is decompressed with a Spring catheter. PERITONEUM/RETROPERITONEUM: No free air or fluid. LYMPH NODES: No intra-abdominal,retroperitoneal, pelvic or inguinal lymphadenopathy. VESSELS: Vascular calcifications. GI TRACT: No distention or wall thickening. BONES AND SOFT TISSUES: Multilevel degenerative disease and lower lumbar facet arthropathy. IMPRESSION: No acute CT finding. No renal calculus or hydronephrosis. Spring catheter with decompressed bladder. Signed by: Dr. Ricky Fernandez M.D. on 04/17/2020 6:43 PM
--- NOTE | 2020-04-17 19:30 | NUR ---
RECEIVED REPORT. RECEIVED PT LAYING SEMI FOWLERS IN BED, AAOX2, RR EVEN AND NON-LABORED ON ROOM AIR. NO S/SX OF DISTRESS NOTED. MEDICAL NURSE AT BEDSIDE TO PERFORM BED BATH AND LINEN CHANGE. LEFT PT LAYING SEMI FOWLERS IN BED, BED IN LOW LOCKED POSITION, SIDE RAILS UPX3, CALL LIGHT AND PHONE WITHIN REACH. BED ALARM ACTIVATED ZONE 1.
[2020-04-17 20:00] VITALS: BP 107/69
--- NOTE | 2020-04-17 20:00 | NUR ---
TEMP NOTED TO BE 103.1, APPLIED ICE TO BILATERAL ARMPITS AND TO GROIN. WILL CONTINUE TO MONITOR.
[2020-04-17 20:22] LABS: BLAST CELLS % MANUAL 2; HYPOCHROMASIA SLIGHT; LYMPHOCYTES % (MANUAL) 24 % (19-48); METAMYELOCYTES % (MANUAL) 2 % (0-0); NEUTROPHILS % (MANUAL) 24 % (40-74); NUCLEATED RED BLOOD CELLS 1; PLATELET ESTIMATE ADEQUATE; PLATELET MORPHOLOGY COMMENT FEW GIANT; RBC MORPHOLOGY COMMENT NORMAL
[2020-04-17] MEDS ORDERED: FILGRASTIM 480 MCG SYR SQ SCH (20:30)
--- NOTE | 2020-04-17 20:50 | NUR ---
IV TO (R) AC PATENT AND INTACT BUT PATIENT CONTINUES TO BEND ELBOW AND OCCLUDING IVF AND ANTIBIOTIC ADMINISTRATION. NEW IV STARTED TO (L) FA 20G. BLOOD RETURN NOTED AND FLUSHES WITHOUT DIFFICULTY. X1 ATTEMPT NEEDED FOR ACCESS.
[2020-04-17] MEDS: TAMSULOSIN HCL 0.4 MG CAP PO SCH (20:54)
[2020-04-17] MEDS: MEROPENEM 500MG/ NS 50ML 50 ML IV SCH (20:54)
[2020-04-17] MEDS: FINASTERIDE 5 MG TAB PO SCH (20:54)
[2020-04-17] MEDS ORDERED: TAMSULOSIN HCL 0.4 MG CAP PO SCH (21:00)
[2020-04-17] MEDS ORDERED: FINASTERIDE 5 MG TAB PO SCH (21:00)
[2020-04-17] MEDS ORDERED: ZOLPIDEM TARTRATE 5 MG TAB PO PRN (21:00)
--- NOTE | 2020-04-17 21:05 | History and Physical ---
HISTORY OF PRESENT ILLNESS: Mr. Peters is an 85-year-old gentleman, who was recently discharged from [facility] and was brought by EMS for evaluation of urinary urgency and fever of one day duration. The patient is known to have a history of multiple medical problems including hypertension, diabetes mellitus, CHF, anemia, UTIs, myelodysplastic syndrome, anemia and leukopenia. Also history of hyperlipidemia. At the time of arrival to the emergency department, vital signs reveal blood pressure of 150/71, respirations 20, pulse 87, temperature of 102.9. LABORATORY DATA: Disclosed hemoglobin 8.9, WBC 1.00, platelet count 225,000. Chem profile reveal sodium 138, potassium 4.1, chloride 103, CO2 of 22, BUN 23, creatinine 1.50, estimated GFR 44. Chest x-ray Patchy bibasilar opacities, which could represent atelectasis or pneumonia/viral pneumonia. The patient was admitted for further evaluation and treatment. Past medical history: There is a history of myelofibrosis with chronic anemia, chronic systolic heart failure, diabetes and hypertension. History of mental dysplastic syndrome with anemia and leukopenia Past medical history: There is a history of previous cholecystectomy, status post knee surgery, status post shoulder surgery. History of GI bleeds in the past with negative EGD and colonoscopy Social history: No tobacco. Family history: Noncontributory. Allergies: Allergic to Cipro Limited review of system in view of patient's altered mental status. Physical examination: Did reveal a patient who was confused.. Vital signs: Blood pressure 123/58, O2 sat 95%, pulse in the mid 100s. Temperature 103.1. Physical exam: HEENT: No gross abnormalities Neck: Supple no JVD Lungs: Clear to auscultation Heart: Regular rate and rhythm, no murmurs no gallops Abdomen: Soft non tender, no guarding. Extremities: No edema Neurologic: Confused. Nonfocal Psychiatrist: Unable to evaluate. Skin: No rashes IMPRESSION: 1.Fever 2. Severe leukopenia and neutropenia with associated fever. 3. Myelodysplastic syndrome. 3. Chronic systolic congestive heart failure. 4. Acute on chronic renal insufficiency. 5. Diabetes. 6. Anemia PLAN: -Broad-spectrum antibiotics -Critical care consultation requested evaluation noted -COVID-19 isolation precaution, awaiting for results -Glycemic control Tylenol for fever -Follow-up blood cultures -ID consult and critical care evaluation MD ZEINAB Yadav /[id number] MTDD
[2020-04-17] MEDS ORDERED: SODIUM CHLORIDE 0.9% 250ML 250 ML IV SCH (21:15)
[2020-04-17] MEDS ORDERED: ACETAMINOPHEN 325 MG TAB PO SCH (21:15)
[2020-04-17] MEDS ORDERED: FUROSEMIDE INJ 10 MG/ML 2 ML VIAL IV SCH (21:15)
--- NOTE | 2020-04-17 21:56 | NUR ---
OBTAINED AN OVER THE PHONE CONSENT WITH PATIENTS ADORE RAZA FOR BLOOD TRANSFUSION. Addendum: 04/17/20 at 2300 by Vannessa James RN PT'S ADORE REPORTED OVER THE PHONE THAT SHE HAD ALREADY TALKED TO DR. GUZMAN CONCERNING THE BLOOD TRANSFUSION.
[2020-04-17 22:07] LABS: CREATINE KINASE MB 0.9 ng/mL (0-5.0)
[2020-04-17 22:17] VITALS: BP 107/69
[2020-04-18] VITALS (12 sets, daily range): BP systolic 71–136; BP diastolic 49–86
[2020-04-18] MEDS: ACETAMINOPHEN 325 MG TAB PO PRN (03:00)
[2020-04-18] MEDS: SODIUM CHLORIDE 0.9% 1000ML 1,000 ML IV SCH (03:00)
--- NOTE | 2020-04-18 05:30 | NUR ---
RECEIVED CALL FROM LABORATORY THAT BLOOD IS READY FOR TRANSFUSION, PT TEMP NOTED TO BE 100.0.
[2020-04-18] MEDS: MEROPENEM 500MG/ NS 50ML 50 ML IV SCH ×3 (06:11→22:02)
[2020-04-18 06:18] LABS: BASOPHILS % 1.4 % (0.0-1.0); HEMATOCRIT 26.9 % (38.2-49.6); HEMOGLOBIN 8.6 g/dL (14.0-18.0); LYMPHOCYTES # (AUTO) 0.2 (1.0-3.2); LYMPHOCYTES % 24.3 % (18.0-39.1); MEAN CORPUSCULAR HEMOGLOBIN 27.7 pg (28-32); MEAN CORPUSCULAR VOLUME 86.5 fL (81-99); MONOCYTES # (AUTO) 0.1 (0.2-0.8); NEUTROPHILS # (AUTO) 0.4 (2.1-6.9); NEUTROPHILS % 55.7 % (38.7-80.0); PLATELET COUNT 159 x10e3/uL (140-360); RED BLOOD COUNT 3.11 x10e6/uL (4.3-5.7); RED CELL DISTRIBUTION WIDTH 21.3 % (11.7-14.4)
[2020-04-18 06:42] LABS: ALBUMIN 2.6 g/dL (3.5-5.0); ALBUMIN/GLOBULIN RATIO 0.7 (0.8-2.0); ANION GAP 12.7 mmol/L (8-16); CALCIUM 8.1 mg/dL (8.4-10.2); CREATININE, SERUM 1.7 mg/dL (0.72-1.25); POTASSIUM 3.7 mmol/L (3.5-5.1)
[2020-04-18] MEDS: INSULIN REGULAR, HUMAN 100 UNIT/1 ML 3ML VIAL SQ SCH ×4 (07:30→21:30)
[2020-04-18] MEDS ORDERED: NON-FORMULARY MEDICATION (Cholecalciferol (Vitamin D3) (Vitamin D3) 1,000 UNIT) PO SCH (09:00)
[2020-04-18] MEDS ORDERED: NON-FORMULARY MEDICATION (Lisinopril 40 MG) PO SCH (09:00)
[2020-04-18] MEDS ORDERED: PYRIDOXINE HCL 50 MG TAB PO SCH (09:00)
[2020-04-18] MEDS ORDERED: FOLIC ACID 1 MG TAB PO SCH (09:00)
[2020-04-18] MEDS: FILGRASTIM 480 MCG SYR SQ SCH (09:00)
[2020-04-18] MEDS ORDERED: PANTOPRAZOLE SOD 40 MG TABEC PO SCH (09:00)
[2020-04-18] MEDS: GLIPIZIDE 5 MG TAB PO SCH (09:31)
[2020-04-18] MEDS: FOLIC ACID 1 MG TAB PO SCH (09:32)
[2020-04-18] MEDS: PANTOPRAZOLE SOD 40 MG TABEC PO SCH (09:32)
[2020-04-18] MEDS: LISINOPRIL 20 MG TAB PO SCH (09:32)
[2020-04-18] MEDS: CHOLECALCIFEROL 1,000 UNIT TAB PO SCH (09:33)
[2020-04-18] MEDS: ATENOLOL 50 MG TAB PO SCH ×2 (09:33→16:34)
[2020-04-18] MEDS: CYANOCOBALAMIN 1,000 MCG TAB PO SCH (09:33)
[2020-04-18] MEDS: PYRIDOXINE HCL 50 MG TAB PO SCH (09:33)
--- NOTE | 2020-04-18 12:00 | NUR ---
Working harder to breath, breath rate increased. Remains alert but appears less responsive than this am. Cleaned of one large bm this am. Will cont to monitor
[2020-04-18] MEDS ORDERED: LACTATED RINGER'S 1,000 ML INJ ONE (12:30)
--- NOTE | 2020-04-18 12:45 | NUR ---
Dr. Aguilar notified of patients change in condition. Attempted to call Maura Small three times from different phones with no answer, straight to voice mail and full mailbox took no messages.
--- NOTE | 2020-04-18 12:57 | Diagnostic Imaging Report ---
EXAMINATION: CHEST SINGLE (PORTABLE) INDICATION: Shortness of breath COMPARISON: Chest radiograph 04/17/2020 FINDINGS: LINES/TUBES:EKG leads overlie the chest. LUNGS:The lung volumes are low. Mild right greater than left basilar opacities. PLEURA:No pleural effusion or pneumothorax. MEDIASTINUM:Cardiomediastinal silhouette is stably enlarged. BONES/SOFT TISSUES:No acute osseous injury. ABDOMEN:No free air under the diaphragm. IMPRESSION: Low lung volumes. Right greater than left bibasilar opacities, most likely subsegmental atelectasis. Cardiomegaly. Signed by: Louis Galvan MD on 04/18/2020 12:54 PM
--- NOTE | 2020-04-18 13:14 | Progress Note ---
DATE: SUBJECTIVE: The patient's COVID was negative. He still has temperatures of 100 to 100.4. He was started on Neupogen. PHYSICAL EXAMINATION: VITAL SIGNS: The blood pressure is 118/86, saturation is 96%, and the pulse is 105. The respiratory rate is in the mid 20s. HEENT: Shows no facial swelling or erythema. LYMPHATIC: Shows no submandibular, cervical, or supraclavicular adenopathy. CARDIAC: Reveals regular rate and rhythm with normal S1 and S2. LUNGS: Auscultation of lungs reveals crackles at the bases. There is no wheezing. ABDOMEN: Soft and nontender. There is no rebound or guarding. EXTREMITIES: Shows no leg edema or calf tenderness. There is no cyanosis or clubbing. SKIN: Shows no rashes. NEUROLOGICAL: Shows no focal abnormalities. LABORATORY DATA: White blood cell count is 0.7 with 55.7% neutrophils. Hemoglobin is 8.6 and the platelet count is 159. The BUN to creatinine ratio is 32 to 1.7. The carbon dioxide is 17 with a chloride of 112. The blood sugars are 150 to 250. The albumin is 2.6. IMPRESSION: 1. Neutropenia with fever and sepsis, present on admission. 2. Myelodysplastic syndrome. 3. 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 4. Diabetes. 5. Chronic systolic congestive heart failure. 6. Metabolic acidosis. PLAN: 1. Continue broad-spectrum antibiotics. 2. Neupogen. 3. Stop normal saline to prevent worsening hyperchloremia and begin lactated Ringer's. 4. Monitor and control blood sugars. 5. Echocardiogram. 6. Prognosis is poor. Mikel Aguilar MD [facility] /[id number]
[2020-04-18] MEDS: LINEZOLID 600 MG/D5W 300ML 300 ML IV SCH (16:38)
[2020-04-18] MEDS ORDERED: FLUCONAZOLE 200 MG/100 ML 100 ML IV SCH (17:00)
--- NOTE | 2020-04-18 18:14 | NUR ---
Spoke with several times today and told her patient is stable but guarded, and that we did not know all the results yet as not all the MDs have come to see patient. Dr. Hewitt called Dr. Daley and she said she (Dr. Daley) would call the patients family as they are well known to her and will call back. Dr. Hewitt also ordered to move to ICU and we are waiting on a bed. Patient is placed on bedside pulse ox and 6 liters of nasal canula to maintain o2 sats of 96%.
[2020-04-18 19:30] LABS: MONOCYTES % (MANUAL) 10 % (3.4-9.0)
[2020-04-18] MEDS ORDERED: ACETAMINOPHEN 1000 MG/100 ML IV PRN (20:30)
[2020-04-18] MEDS: TAMSULOSIN HCL 0.4 MG CAP PO SCH (20:57)
[2020-04-18] MEDS: FINASTERIDE 5 MG TAB PO SCH (21:00)
--- NOTE | 2020-04-18 23:14 | NUR ---
Patient seen and evaluated on 04/18/2020 Events noted. Discussed with Dr. Fine infectious emphysema patient condition. Patient is not improving. Hence palliative care has been considered. Hospice has been advised. Physical exam: Vital signs: Blood pressure at 20 188/51, respiration 43, pulse 103 . Consult evaluation/ examination noted. HEENT: No gross abnormalities Neck: Supple no JVD Lungs: Crackles noted. Heart: Regular rate and rhythm, no murmurs no gallops Abdomen: Soft non tender, no guarding. Extremities: No edema Neurologic: Alert oriented 3, no focal we Assessment: Neutropenia/fever/sepsis Myelodysplastic syndrome Metabolic acidosis Chronic systolic heart failure Acute kidney injury Plan of care: Continue present care. Palliative care.
[2020-04-19] VITALS (10 sets, daily range): BP systolic 62–84; BP diastolic 43–67
[2020-04-19] MEDS: LINEZOLID 600 MG/D5W 300ML 300 ML IV SCH ×2 (04:18→15:31)
[2020-04-19 06:14] LABS: BASOPHILS % 2.1 % (0.0-1.0); HEMATOCRIT 31.2 % (38.2-49.6); HEMOGLOBIN 9.4 g/dL (14.0-18.0); LYMPHOCYTES # (AUTO) 0.3 (1.0-3.2); LYMPHOCYTES % 30.9 % (18.0-39.1); MEAN CORPUSCULAR HEMOGLOBIN 27.5 pg (28-32); MEAN CORPUSCULAR HGB CONC 30.1 g/dL (31-35); MEAN CORPUSCULAR VOLUME 91.2 fL (81-99); MONOCYTES # (AUTO) 0.2 (0.2-0.8); MONOCYTES % 24.7 % (4.4-11.3); NEUTROPHILS # (AUTO) 0.4 (2.1-6.9); NEUTROPHILS % 42.3 % (38.7-80.0); PLATELET COUNT 122 x10e3/uL (140-360); RED BLOOD COUNT 3.42 x10e6/uL (4.3-5.7); RED CELL DISTRIBUTION WIDTH 21.7 % (11.7-14.4)
[2020-04-19] MEDS: MEROPENEM 500MG/ NS 50ML 50 ML IV SCH ×2 (06:16→15:31)
[2020-04-19 06:56] LABS: ALBUMIN 2.5 g/dL (3.5-5.0); ALBUMIN/GLOBULIN RATIO 0.6 (0.8-2.0); CALCIUM 8.7 mg/dL (8.4-10.2)
[2020-04-19 07:14] LABS: ANION GAP 20.3 mmol/L (8-16)
[2020-04-19 07:18] LABS: CREATININE, SERUM 3.73 mg/dL (0.72-1.25); POTASSIUM 5.3 mmol/L (3.5-5.1)
[2020-04-19 08:12] LABS: ANISOCYTOSIS SLIGHT; BURR CELLS SLIGHT; LYMPHOCYTES % (MANUAL) 48 % (19-48); METAMYELOCYTES % (MANUAL) 1 % (0-0); MONOCYTES % (MANUAL) 12 % (3.4-9.0); MYELOCYTES % (MANUAL) 1 % (0-0); NEUTROPHILS % (MANUAL) 36 % (40-74); PLATELET ESTIMATE SLIGHTLY DECREASED; RBC MORPHOLOGY COMMENT ABNORMAL
[2020-04-19 08:13] LABS: PLATELET MORPHOLOGY COMMENT NORMAL
[2020-04-19] MEDS: INSULIN REGULAR, HUMAN 100 UNIT/1 ML 3ML VIAL SQ SCH ×2 (08:47→11:30)
[2020-04-19] MEDS: ATENOLOL 50 MG TAB PO SCH ×2 (08:51→15:31)
[2020-04-19] MEDS: FOLIC ACID 1 MG TAB PO SCH (08:52)
[2020-04-19] MEDS: LISINOPRIL 20 MG TAB PO SCH (08:52)
[2020-04-19] MEDS: GLIPIZIDE 5 MG TAB PO SCH (08:52)
[2020-04-19] MEDS: CHOLECALCIFEROL 1,000 UNIT TAB PO SCH (08:52)
[2020-04-19] MEDS: CYANOCOBALAMIN 1,000 MCG TAB PO SCH (08:52)
[2020-04-19] MEDS: PANTOPRAZOLE SOD 40 MG TABEC PO SCH (08:52)
[2020-04-19] MEDS: PYRIDOXINE HCL 50 MG TAB PO SCH (08:52)
[2020-04-19] MEDS: FILGRASTIM 480 MCG SYR SQ SCH (08:52)
--- NOTE | 2020-04-19 09:07 | Progress Note ---
DATE: SUBJECTIVE: The patient is now in the Intensive Care Unit. He received Neupogen yesterday in addition to antibiotics. The family has opted for hospice care. PHYSICAL EXAMINATION: VITAL SIGNS: Blood pressure is now 72/54, saturation is 97% on 6 L. HEENT: Shows no facial swelling or erythema. CARDIAC: Reveals regular rate and rhythm with normal S1 and S2. LUNGS: Auscultation of lungs reveals crackles at the bases. There is no wheezing. ABDOMEN: Soft and nontender. There is no rebound or guarding. EXTREMITIES: Shows no leg edema or calf tenderness. There is no cyanosis or clubbing. SKIN: Shows no rashes. LABORATORY DATA: White blood cell count is 0.97, hemoglobin is 9.5, and the platelet count is 122. The BUN to creatinine ratio is 59 to 3.73. Albumin is 2.5. Carbon dioxide is 15. IMPRESSION: 1. Neutropenia with fever and severe sepsis, present on admission. 2. Acute renal failure. 3. Myelodysplastic syndrome. 4. Anemia. 5. Thrombocytopenia. 6. Metabolic acidosis. PLAN: 1. Prognosis is poor. Family has opted for palliative care and hospice. 2. Continue current antibiotics. 3. Continue oxygen. Mikel Aguilar MD [facility]/[place] /[id number]
[2020-04-19] MEDS ORDERED: MORPHINE SULFATE 2 MG/ML SYR 1ML IV PRN (10:15)
--- NOTE | 2020-04-19 11:10 | NUR ---
RECEIVED HOSPICE ORDER. MET WITH PT AND FAMILY( AND DAUGHTER JOSÉ), THEY AGREED WITH HOSPICE. FAMILY WAS INFORMED OF FREEDOM TO CHOOSE THE HOSPICE AGENCY.FAMILY CHOSE TO GO WITH [facility] .SW CONTACTED [facility] REFERRAL LINE- TWICE WAITING FOR THE ADMN COORDINATOR TO CONTACT THE SW.
--- NOTE | 2020-04-19 12:07 | NUR ---
SPOKE WITH THE ADMN COORDINATOR MAYDA, DISCUSSED REFERRAL, SHE WILL CONTACT THE ADMN NURSE TO SEE IF SHE CAN MEET WITH THE FAMILY IN THE HOSPITAL, SHE WILL CONTACT JUSTYN WITH THE RESPONSE. FAMILY REQUESTING HOSPITAL BED ALSO, MAYDA WAS MADE AWARE. JUSTYN FAXED REQUESTED CLINICALS WITH FAMILY'S PERMISSION. WILL FOLLOW UP.
--- NOTE | 2020-04-19 12:49 | NUR ---
JUSTYN LEFT TWO MESSAGES FOR MAYDA TO FIND OUT IF SHE IS GOING TO BE ABLE TO SEND A NURSE TO THE HOSPITAL TO MEET WITH THE PT/FAMILY, WILL FOLLOW UP.
--- NOTE | 2020-04-19 13:29 | NUR ---
JUSTYN STILL NOT ABLE TO REACH MAYDA, CALLED THE MAIN NUMBER , JUSTYN WAS TOLD THAT MAYDA WAS HAT BAND ATTACHER FOR THIS MORNING ONLY, SHE IS NO LONGER HAT BAND ATTACHER, IT IS MONY THE NURSE HAT BAND ATTACHER FOR THE REST OF THE DAY, SHE AGREED TO SEND MESSAGE TO MONY TO CALL THIS SW JUAN JOSÉ.
--- NOTE | 2020-04-19 13:42 | NUR ---
Patient is DNR. Patient's and son at bedside at start of shift. Daughter and now at bedside. Discussed with and daughter at various times throughout shift that comfort measures are goals of care at this point in time. Family refused echo as they feel like patient was uncomfortable at the time and that they do not feel it necessary to perform any test as they do not feel it necessary to treat anything other than symptoms. Family is familiar with hospice services as they just had a family member with hospice in the last 3 months. CONSUMER LENDING MANAGER has been at bedside and daughter has spoken to hospice services on the phone. Dr. Aguilar notified of family wishes for comfort measures only. Orders for morphine IV prn given and to stop PO meds. IV prn morphine given for pain with good effect. Family hopes to transfer patient home with hospice tomorrow.
--- NOTE | 2020-04-19 14:24 | NUR ---
RECEIVED CALL FROM MAYDA, SHE SAID THEY ARE SO BUSY, APOLOGIZED FOR NOT RETURNING CALLS. SHE SAID THEIR ADMISSION NURSE ALREADY MET WITH THE FAMILY VIRTUALLY AND SIGNED CONSENTS, SHE IS WORKING ON ARRANGING HOSPITAL BED, WILL BE DELIVERED TO PT'S HOME TODAY, ASKED IF WE CAN ARRANGE FOR D/C FOR TOMORROW MORNING JUST TO MAKE SURE EVERYTHING IS IN PLACE. SW MET WITH PT/FAMILY AND PROVIDED THIS INFORMATION, DAUGHTER VERIFIED THEY SPOKE WITH THE HOSPICE NURSE AND IS IN AGREEMENT WITH THE PLAN. BEDSIDE NURSE ALSO WAS MADE AWARE.
--- NOTE | 2020-04-19 16:38 | NUR ---
e patient is now in the Intensive Care Unit. He received Neupogen yesterday in addition to antibiotics. The family has opted for hospice care. PHYSICAL EXAMINATION: VITAL SIGNS: Blood pressure is now 72/54, saturation is 97% on 6 L. HEENT: Shows no facial swelling or erythema. CARDIAC: Reveals regular rate and rhythm with normal S1 and S2. LUNGS: Auscultation of lungs reveals crackles at the bases. There is no wheezing. ABDOMEN: Soft and nontender. There is no rebound or guarding. EXTREMITIES: Shows no leg edema or calf tenderness. There is no cyanosis or clubbing. SKIN: Shows no rashes. LABORATORY DATA: White blood cell count is 0.97, hemoglobin is 9.5, and the platelet count is 122. The BUN to creatinine ratio is 59 to 3.73. Albumin is 2.5. Carbon dioxide is 15. AGREE WITH COMFORT CARE will sign off
--- NOTE | 2020-04-19 21:05 | NUR ---
REPORT CALLED TO ESTUARDO BABCOCK. ALL QUESTIONS ANSWERED. FAMILY MEMBERS MADE AWARE OF PLANS TO MOVE ROOMS AND AGREEABLE. PATIENT MOVED TO ROOM 197 AT 2105.
--- NOTE | 2020-04-19 21:19 | NUR ---
PATIENT RECEIVED IN BED WITH SOB, GASPING. FAMILY AT BEDSIDE, PT IS TO D.C HOME WITH HOSPICE TOMORROW AND ONLY COMFORT CARE TO BE PROVIDED. CALLED DR BARRETT TO GET ORDER FOR ATIVAN FOR PT COMFORT. AWAITING CALL BACK.
[2020-04-19] MEDS ORDERED: LORAZEPAM INJ 2 MG/ML VIAL IV PRN (22:00)
--- NOTE | 2020-04-19 22:34 | NUR ---
PATIENT HAD BM, CLEANED UP PT WITH HELP OF DAUGHTER AND REPOSITIONED. PLACED SUCTION IN THE ROOM DUE TO PATIENT HAVING VOMITOUS EPISODE DURING MOVING HIM AND PERFORMED ORAL CARE. PT RESTING IN BED WITH NO SIGNS OF DISTRESS AT THIS TIME. FAMILY AT BEDSIDE.
[2020-04-20] VITALS: BP 49/39
--- NOTE | 2020-04-20 00:38 | NUR ---
PT HEARTBEAT STOPPED AT 0030, FAMILY AT BEDSIDE. NOTIFIED ER DR TO COME PRONOUNCE & CHARGE NURSE MONY WELL [employer] PRODUCT MANAGER JANIS. CALLED DR BARRETT AND NOTIFIED ANSWERING SERVICE OF PT PASSING. FAMILY TO PROVIDE HOME INFORMATION.
--- NOTE | 2020-04-20 00:40 | NUR ---
PATIENT PRONOUNCED BY DR HEAD AT THIS TIME. FAMILY PROVIDED HOME INFO OF [facility] [phone] AND THEY WERE CONTACTED AT THIS TIME.
--- NOTE | 2020-04-20 02:05 | NUR ---
HOME ARRIVED AND TOOK POSSESSION OF THE PATIENT. ALL FORMS FILLED OUT AND PT NOW REMOVED.
--- NOTE | 2020-04-20 07:52 | NUR ---
NOTIFIED SANGITA Perales/ [facility] [phone] THAT PATIENT LAST NIGHT.
--- NOTE | 2020-04-20 13:43 | Progress Note ---
DATE: 04/18/2020 SUBJECTIVE: Mr. Peters is not doing well. He is getting worse short of breath. The patient is confused. Discussed with the attending. Discussed with Critical Care. I also called his oncologist, Dr. Daley. The patient who has history of bone marrow fibrosis and has been sick for some time now with recurrent pneumonia, recurrent admissions to the hospital, C difficile colitis, congestive heart failure, now chronic kidney disease, really poor prognosis, need to discuss the DNR status with the family. PHYSICAL EXAMINATION: VITAL SIGNS: He is running fever. HEENT: Not icteric. NECK: Supple. CHEST: Crackles. HEART: S1, S2. ABDOMEN: Soft. IMPRESSION: Sepsis, pneumonia, bone marrow fibrosis. Continue meropenem and Zyvox. Add Diflucan. Need to discuss the DNR status. Otherwise, we have to Intensive Care Unit. Time spent 45 minutes. MD IRINA Mendoza/[place] /[id number]
== END 2020-04-20 02:10 | disposition expired | DRG 871 ==
LOC: ER 03:16 → ERHOLD 05:02 → IMCU 09:10 → OBSVTOIN 04-18 16:02 → ICU 04-18 17:29 → IMCU 04-18 18:39 → ICU 04-18 19:15 → IMCU 04-19 21:09
PROVIDERS: ADMIT Internal Medicine; ATTEND Internal Medicine
DX: A41.9 Sepsis, unspecified organism (principal); J18.9 Pneumonia, unspecified organism; J96.00 Acute respiratory failure, unspecified whether with hypoxia or hypercapnia; G93.41 Metabolic encephalopathy; I13.0 Hypertensive heart and chronic kidney disease with heart failure and stage 1 through stage 4 chronic kidney disease, or unspecified chronic kidney disease; I50.22 Chronic systolic (congestive) heart failure; N17.9 Acute kidney failure, unspecified; E87.2 Acidosis; D75.81 Myelofibrosis; D46.9 Myelodysplastic syndrome, unspecified; N18.9 Chronic kidney disease, unspecified; E11.22 Type 2 diabetes mellitus with diabetic chronic kidney disease; Z79.4 Long term (current) use of insulin; D70.9 Neutropenia, unspecified; R50.81 Fever presenting with conditions classified elsewhere; D63.8 Anemia in other chronic diseases classified elsewhere; D69.6 Thrombocytopenia, unspecified; R65.20 Severe sepsis without septic shock; E78.5 Hyperlipidemia, unspecified; F03.90 Unspecified dementia, unspecified severity, without behavioral disturbance, psychotic disturbance, mood disturbance, and anxiety; Z11.59 Encounter for screening for other viral diseases; Z66 Do not resuscitate
CPT/HCPCS: 36415; 51700; 71045; 74176; 80048; 80053; 81001; 82550; 82553; 82948; 83605; 83880; 84484; 85025; 86850; 86870; 86880; 86900; 86905; 86920; 86922; 87040; 87086; 93005; 99001; 99285; G0378; J1442; J1450; J1817; J1885; J2020; J2060; J2270; J2543; J7030; J7050; J7121; U0002